=== PATIENT | female | born 1950 | race Caucasian/White ===

== ENCOUNTER 2022-07-26 06:37 | Outpatient (RCR) | payer MEDICARE, OTHER, SELFPAY | END 2022-08-24 23:59 | disposition home or self-care (01) | LOC: MM 06:37 | PROVIDERS: PCP Internal Medicine Nephrology; Visit Provider Internal Medicine | DX: Z51.81 Encounter for therapeutic drug level monitoring (principal); Z79.01 Long term (current) use of anticoagulants; I48.20 Chronic atrial fibrillation, unspecified | CPT/HCPCS: 85610; G0463 ==

== ENCOUNTER 2022-07-27 14:20 | Outpatient (REF) | payer MEDICARE, OTHER, SELFPAY ==
[2022-07-27 14:47] LABS: Potassium 2.8 mmol/L (3.5-5.1)
== END 2022-07-27 14:21 ==
LOC: LAB 14:20
PROVIDERS: PCP Internal Medicine Nephrology; Visit Provider Internal Medicine
DX: E87.5 Hyperkalemia (principal)
CPT/HCPCS: 36415; 84132

== ENCOUNTER 2022-08-03 12:45 | Outpatient (REF) | payer MEDICARE, OTHER, SELFPAY ==
[2022-08-03 13:13] LABS: Hemoglobin 9.5 g/dL (12.0-16.0)
[2022-08-03 13:26] LABS: Potassium 4.9 mmol/L (3.5-5.1)
== END 2022-08-03 12:46 ==
LOC: LAB 12:45
PROVIDERS: PCP Internal Medicine Nephrology; Visit Provider Internal Medicine Nephrology
DX: N18.9 Chronic kidney disease, unspecified (principal); D63.1 Anemia in chronic kidney disease; E87.5 Hyperkalemia
CPT/HCPCS: 36415; 84132; 85018

== ENCOUNTER 2022-08-06 12:37 | Outpatient (REF) | payer MEDICARE, OTHER, SELFPAY ==
[2022-08-06 12:53] LABS: Hemoglobin 9.4 g/dL (12.0-16.0)
== END 2022-08-06 12:38 ==
LOC: LAB 12:37
PROVIDERS: PCP Internal Medicine Nephrology; Visit Provider Internal Medicine Nephrology
DX: N18.9 Chronic kidney disease, unspecified (principal); D63.1 Anemia in chronic kidney disease
CPT/HCPCS: 36415; 85018

== ENCOUNTER 2022-08-30 09:02 | Outpatient (RCR) | payer MEDICARE, OTHER, SELFPAY | END 2022-09-24 16:59 | disposition home or self-care (01) | LOC: MM 09:02 | PROVIDERS: PCP Radiology Diagnostic Radiology; Visit Provider Radiology Diagnostic Radiology | DX: Z51.81 Encounter for therapeutic drug level monitoring (principal); Z79.01 Long term (current) use of anticoagulants; I48.20 Chronic atrial fibrillation, unspecified | CPT/HCPCS: 85610; G0463 ==

== ENCOUNTER 2022-09-13 13:24 | Outpatient (OUT) | payer MEDICARE, OTHER, SELFPAY ==
--- NOTE | 2022-09-13 13:30 | MM_ITS ---
Patient: CARLOS COSTA Exam Date: 09/13/2022 : 1950 Gender:F Ordering : DR MARIETTA KIRKLAND M.D. Admission #: [id number] Family : Order #: [id number] CLICK HERE TO VIEW EXAM RADIOLOGY REPORT PROCEDURE: MM TOMOSYNTHESIS SCREENING BI COMPARISON: MG MAMM SCREEN BROOKS W CAD, 04/24/2019. MG MAMM SCREEN 3D BROOKS CAD, 06/30/2020. INDICATIONS: Screening Calculator Name NCI Breast Cancer Risk Assessment Tool 5 Year Breast Cancer Risk 1.70% Lifetime Breast Cancer Risk 5.20% Personal Breast Cancer No Personal Ovarian Cancer No Treatments None Family Cancers None LOCATION: [facility] BREAST COMPOSITION: Scattered areas fibroglandular density. FINDINGS: DIAGNOSTIC CATEGORY 2--BENIGN FINDING. NO CHANGE FROM COMPARISON. Scattered benign-appearing nodules are present. Scattered benign-appearing calcifications are present. Scattered benign-appearing lymph nodes are present. RIGHT BREAST: No significant suspicious finding. LEFT BREAST: No significant suspicious finding. RECOMMENDATIONS: ROUTINE MAMMOGRAM AND CLINICAL EVALUATION IN 12 MONTHS. PLEASE NOTE: A NORMAL MAMMOGRAM DOES NOT EXCLUDE THE POSSIBILITY OF BREAST CANCER. A CLINICALLY SUSPICIOUS PALPABLE LUMP SHOULD BE BIOPSIED. Dictated by: Chino De La Cruz MD on 09/13/2022 at 14:47 Approved by: Chino De La Cruz MD on 09/13/2022 at 14:48
== END 2022-09-13 13:25 | disposition home or self-care (01) ==
LOC: MAMMO 13:24
PROVIDERS: PCP Internal Medicine; Visit Provider Internal Medicine
DX: Z12.31 Encounter for screening mammogram for malignant neoplasm of breast (principal)
CPT/HCPCS: 77063; 77067

== ENCOUNTER 2022-09-25 09:23 | Outpatient (RCR) | payer MEDICARE, OTHER, SELFPAY | END 2022-10-25 17:34 | disposition home or self-care (01) | LOC: MM 09:23 | PROVIDERS: PCP Internal Medicine; Visit Provider Internal Medicine | DX: Z51.81 Encounter for therapeutic drug level monitoring (principal); Z79.01 Long term (current) use of anticoagulants; I48.20 Chronic atrial fibrillation, unspecified | CPT/HCPCS: 85610; G0463 ==

== ENCOUNTER 2022-10-18 00:45 | Emergency (ER) | payer MEDICARE, OTHER, SELFPAY ==
[2022-10-18 00:49] VITALS: BP 92/50; PULSE 97; RESP 16; TEMP 36.8; O2SAT 97
--- NOTE | 2022-10-18 01:00 | ED_ITS ---
HPI - Wound/Laceration General Chief Complaint: Wound/Laceration Stated Complaint: LACERATION L ARM Time Seen by Provider: 10/18/22 01:00 History of Present Illness HPI narrative: hemodialysis patient. Presents complaining of bleeding from the fistula left upper arm. No able to control bleeding at home. No other complaint and now presents to be seen. Related Data Allergies Allergy/AdvReac Type Severity Reaction Status Date / Time atorvastatin [From Lipitor] Allergy Verified 10/18/22 00:57 Penicillins Allergy Verified 10/18/22 00:57 tuberculin,PPD,multi-puncture Allergy Verified 10/18/22 00:57 Review of Systems ROS Status of ROS 10 or more systems reviewed and unremarkable except as noted in history and below Exam Constitutional Vital Signs, click to edit/add: Last Vital Signs Temp 98.3 F 10/18/22 00:49 Pulse 97 H 10/18/22 00:49 Resp 16 10/18/22 00:49 BP 92/50 10/18/22 00:49 Pulse Ox 97 10/18/22 00:49 Common normals: no apparent distress, oriented x3, no limitations and healthy appearing HENMT Common normals: normocephalic Eye Common normals: no scleral icterus Respiratory Common normals: normal respiratory effort, no retractions and no use of accessory muscles Cardio Common normals: regular rate, regular rhythm, S1 normal heart sound and S2 normal heart sound Extremity Other: bleeding from fistula left upper arm Neuro Common normals: oriented x3, CN's II-XII intact bilaterally, moves all extrem ities and no focal motor deficits Course Vital Signs Vital signs: Vital Signs Temperature 98.3 F 10/18/22 00:49 Pulse Rate 97 H 10/18/22 00:49 Respiratory Rate 16 10/18/22 00:49 Blood Pressure 92/50 10/18/22 00:49 Pulse Oximetry 97 10/18/22 00:49 Temperature 98.3 F 10/18/22 00:49 Pulse Rate 97 H 10/18/22 00:49 Respiratory Rate 16 10/18/22 00:49 Blood Pressure 92/50 10/18/22 00:49 Pulse Oximetry 97 10/18/22 00:49 MDM - Wound/Laceration MDM Narrative Medical decision making narrative: patient presents with arterial bleed from her AV fistula left upper arm. Did have dialysis yesterday. bleeding continued in the department despite holding pressure silver nitrate used to cauterize the bleeder and then pressure dressing applied patient observed in the department and bleeding remained controlled Discharge Plan Discharge Chief Complaint: Wound/Laceration Clinical Impression: Hemorrhage of arteriovenous fistula Patient Disposition: Home, Self-Care Instructions: Acute Wounds (ED) Stand Alone Forms: Portal Instructions Referrals: MARIETTA KIRKLAND [Primary Care Provider] - 1 week
--- NOTE | 2022-10-18 01:23 | PC.NURSE ---
patient states her fistula started bleeding approx 45mins ago and she has been holding pressure and fistula continues to bleed. patient arrives with towel on arm and holding pressure. this RN immediately took over holding pressure with gauze and dr mathias called in to bedside to assess patient. verbal order from dr mathias to apply pressure dressing and continue to hold pressure. patient states she did receive dialysis earlier today and states when she got home the fistula bled for approx 15minutes but stopped with pressure applied. while this RN was completeing triage pressure dressing and manual pressure maintained. this RN observed patient to be bleeding through pressure dressing. dressing changed and manual pressure reapplied, dr mathias notified.
== END 2022-10-18 02:23 | disposition home or self-care (01) ==
PROVIDERS: Emergency Provider Internal Medicine; PCP Internal Medicine
DX: T82.838A Hemorrhage due to vascular prosthetic devices, implants and grafts, initial encounter (principal); Z99.2 Dependence on renal dialysis
CPT/HCPCS: 99282

== ENCOUNTER 2022-10-26 10:23 | Outpatient (RCR) | payer MEDICARE, OTHER, SELFPAY | END 2022-11-23 16:52 | disposition home or self-care (01) | LOC: MM 10:23 | PROVIDERS: PCP Internal Medicine; Visit Provider Internal Medicine | DX: Z51.81 Encounter for therapeutic drug level monitoring (principal); Z79.01 Long term (current) use of anticoagulants; I48.20 Chronic atrial fibrillation, unspecified | CPT/HCPCS: 85610; G0463 ==

== ENCOUNTER 2022-11-02 09:30 | Outpatient (REF) | payer MEDICARE, OTHER, SELFPAY ==
[2022-11-02 09:55] LABS: Potassium 5.5 mmol/L (3.5-5.1)
== END 2022-11-02 09:31 | disposition home or self-care (01) ==
LOC: LAB 09:30
PROVIDERS: PCP Internal Medicine; Visit Provider Internal Medicine Nephrology
DX: E87.5 Hyperkalemia (principal)
CPT/HCPCS: 36415; 84132

== ENCOUNTER 2022-11-12 01:45 | Emergency (ER) | payer MEDICARE, OTHER, SELFPAY ==
[2022-11-12 01:38] VITALS: BP 118/82; PULSE 109; RESP 16; TEMP 36.7; O2SAT 100; BMI 28.4
--- NOTE | 2022-11-12 02:15 | ED.EXTPRO1 ---
HPI - Extremity Problem General Chief complaint: Wound/Laceration Stated complaint: BLEEDING FISTULA Time Seen by Provider: 11/12/22 01:54 Mode of arrival: ambulance History of Present Illness HPI Narrative: bleeding AV fistula. States this past saturday she had a fistulogram and required manipulation to open the fistula. Tonight spontaneous bleeding from her left upper arm AV fistula. Similar to past episodes. she otherwise feels ok Related Data Allergies Allergy/AdvReac Type Severity Reaction Status Date / Time atorvastatin [From Lipitor] Allergy Verified 10/18/22 00:57 Penicillins Allergy Verified 10/18/22 00:57 tuberculin,PPD,multi-puncture Allergy Verified 10/18/22 00:57 Review of Systems ROS Status of ROS 10 or more systems reviewed and unremarkable except as noted in history and below PFS PFS Social History Smoking status: Former smoker Exam Constitutional Vital Signs, click to edit/add: Last Vital Signs Temp 98.1 F 11/12/22 01:38 Pulse 109 H 11/12/22 01:38 Resp 16 11/12/22 01:38 BP 118/82 11/12/22 01:38 Pulse Ox 100 11/12/22 01:38 O2 Del Method Room Air 11/12/22 01:38 Common normals: no apparent distress, oriented x3, healthy appearing, alert and well nourished Eye Common normals: EOMs intact bilaterally and conjunctivae normal Respiratory Common normals: normal respiratory effort and no use of accessory muscles Cardio Common normals: regular rate and regular rhythm GI Common normals: Normal to inspection, nondistended, normoactive bowel sounds present, soft to palpation and non-tender Extremity Other: arterial bleeder left upper fisula Neuro Common normals: oriented x3, CN's II-XII intact bilaterally, moves all extremities, no focal motor deficits and no sensory deficits noted Psych Appearance: grossly normal Course Vital Signs Vital signs: Vital Signs Temperature 98.1 F 11/12/22 01:38 Pulse Rate 109 H 11/12/22 01:38 Respiratory Rate 16 11/12/22 01:38 Blood Pressure 118/82 11/12/22 01:38 Pulse Oximetry 100 11/12/22 01:38 Oxygen Delivery Method Room Air 11/12/22 01:38 Temperature 98.1 F 11/12/22 01:38 Pulse Rate 109 H 11/12/22 01:38 Respiratory Rate 16 11/12/22 01:38 Blood Pressure 118/82 11/12/22 01:38 Pulse Oximetry 100 11/12/22 01:38 Oxygen Delivery Method Room Air 11/12/22 01:38 MDM - Extremity (Nontraumatic) MDM Narrative Medical decision making narrative: presents with acute bleed from left upper arm AV fistula. arterial bleed. able to control bleeder using silver nitrate cautery. pressure dressing then applied and patient observed in the department patient rechecked one hour later and no active bleeding Discharge Plan Discharge Chief Complaint: Wound/Laceration Clinical Impression: Hemorrhage of arteriovenous fistula Instructions: Arteriovenous Graft Creation for Hemodialysis (DC) Additional Instructions: follow up tomorrow with nephrology for re eval of fistula Referrals: MARIETTA KIRKLAND [Primary Care Provider] - 1 week
== END 2022-11-12 03:52 | disposition home or self-care (01) ==
PROVIDERS: Emergency Provider Internal Medicine; PCP Internal Medicine
DX: T82.838A Hemorrhage due to vascular prosthetic devices, implants and grafts, initial encounter (principal); Z87.891 Personal history of nicotine dependence
CPT/HCPCS: 99282

== ENCOUNTER 2022-11-26 02:45 | Outpatient (RCR) | payer MEDICARE, OTHER, SELFPAY | END 2022-12-25 17:41 | disposition home or self-care (01) | LOC: MM 02:45 | PROVIDERS: PCP Internal Medicine; Visit Provider Internal Medicine | DX: Z51.81 Encounter for therapeutic drug level monitoring (principal); Z79.01 Long term (current) use of anticoagulants; I48.20 Chronic atrial fibrillation, unspecified | CPT/HCPCS: 85610; G0463 ==

== ENCOUNTER 2022-12-26 00:40 | Outpatient (RCR) | payer MEDICARE, OTHER, SELFPAY | END 2023-01-24 16:49 | disposition home or self-care (01) | LOC: MM 00:40 | PROVIDERS: PCP Internal Medicine; Visit Provider Internal Medicine | DX: Z51.81 Encounter for therapeutic drug level monitoring (principal); Z79.01 Long term (current) use of anticoagulants; I48.20 Chronic atrial fibrillation, unspecified | CPT/HCPCS: 85610; G0463 ==

== ENCOUNTER 2023-01-25 09:27 | Outpatient (RCR) | payer MEDICARE, OTHER, SELFPAY | END 2023-02-24 23:59 | disposition home or self-care (01) | LOC: MM 09:27 | PROVIDERS: PCP Internal Medicine; Visit Provider Internal Medicine | DX: Z51.81 Encounter for therapeutic drug level monitoring (principal); Z79.01 Long term (current) use of anticoagulants; I48.20 Chronic atrial fibrillation, unspecified | CPT/HCPCS: 85610; G0463 ==

== ENCOUNTER 2023-03-08 11:34 | Outpatient (RCR) | payer MEDICARE, OTHER, SELFPAY | END 2023-03-27 17:14 | disposition home or self-care (01) | LOC: MM 11:34 | PROVIDERS: PCP Internal Medicine; Visit Provider Internal Medicine | DX: Z51.81 Encounter for therapeutic drug level monitoring (principal); Z79.01 Long term (current) use of anticoagulants; I48.20 Chronic atrial fibrillation, unspecified | CPT/HCPCS: 85610; G0463 ==

== ENCOUNTER 2023-03-28 01:01 | Outpatient (RCR) | payer MEDICARE, OTHER, SELFPAY | END 2023-04-25 17:25 | disposition home or self-care (01) | LOC: MM 01:01 | PROVIDERS: PCP Internal Medicine; Visit Provider Internal Medicine | DX: Z51.81 Encounter for therapeutic drug level monitoring (principal); Z79.01 Long term (current) use of anticoagulants; I48.20 Chronic atrial fibrillation, unspecified ==

== ENCOUNTER 2023-03-29 08:30 | Emergency (ER) | payer MEDICARE, OTHER, SELFPAY ==
[2023-03-29 08:39] VITALS: BP 112/83; PULSE 127; RESP 20; TEMP 36.8; O2SAT 100; BMI 28.2
--- NOTE | 2023-03-29 08:47 | ED.GENADUL1 ---
HPI - General Adult General Chief complaint: Extremity Problem, Nontraumatic Stated complaint: UPPER EXTREMITY PAIN L ARM Time Seen by Provider: 03/29/23 08:47 Source: patient Mode of arrival: ambulance Limitations: no limitations History of Present Illness HPI narrative: This patient is here for bleeding from her AV fistula that she uses for dialysis. She had dialysis 2 days ago and has been bleeding off and on since that time. She has had this happen 3 times previously, she did see her vascular surgeon and they leave they are going to have to do another fistulogram or repair/replacement. That physician is in [place]. She is also taking Coumadin. She is not on any antiplatelet medication. She said it started bleeding again this morning and she put a towel on it and wrapped it up tightly. Related Data Home Medications Medication Instructions Recorded Confirmed bumetanide 1 mg tablet 1 mg PO Q24H 03/29/23 03/29/23 carvedilol 3.125 mg tablet 3.125 mg PO Q12H 03/29/23 03/29/23 docusate sodium 100 mg capsule 100 mg PO Q12H 03/29/23 03/29/23 midodrine 10 mg tablet 10 mg PO Q24H 03/29/23 03/29/23 pantoprazole 20 mg tablet,delayed 20 mg PO Q24H 03/29/23 03/29/23 release rosuvastatin 10 mg tablet 10 mg PO Q24H 03/29/23 03/29/23 sevelamer carbonate 800 mg tablet 800 mg PO Q8H 03/29/23 03/29/23 warfarin 2 mg tablet 2 mg PO DAILY 03/29/23 03/29/23 Allergies Allergy/AdvReac Type Severity Reaction Status Date / Time atorvastatin [From Lipitor] Allergy Verified 10/18/22 00:57 Penicillins Allergy Verified 10/18/22 00:57 tuberculin,PPD,multi-puncture Allergy Verified 10/18/22 00:57 PFS PFS Social History Smoking status: Former smoker Exam Narrative Exam Narrative: Here in the emergency room the dressing was taken down. There is a very slow oozing of blood from a puncture wound just distal to her dressing that is utilized for access for dialysis. We did use the cautery stick and tried to cauterize this area that has been successful in the past. With the third cautery stick, it finally did stop bleeding. At that time a Gelfoam dressing, 4 x 4's and Kerlix were applied. INR testing came back at 2.13. At approximately 1015 after the dressing had been on for nearly 1 hour the dressing was taken down and there is no further bleeding. Constitutional Vital Signs, click to edit/add: Last Vital Signs Temp 98.2 F 03/29/23 08:39 Pulse 127 H 03/29/23 08:39 Resp 20 03/29/23 08:39 BP 112/83 03/29/23 08:39 Pulse Ox 100 03/29/23 08:39 O2 Del Method Room Air 03/29/23 08:39 Course Vital Signs Vital signs: Vital Signs Temperature 98.2 F 03/29/23 08:39 Pulse Rate 127 H 03/29/23 08:39 Respiratory Rate 20 03/29/23 08:39 Blood Pressure 112/83 03/29/23 08:39 Pulse Oximetry 100 03/29/23 08:39 Oxygen Delivery Method Room Air 03/29/23 08:39 Temperature 98.2 F 03/29/23 08:39 Pulse Rate 127 H 03/29/23 08:39 Respiratory Rate 20 03/29/23 08:39 Blood Pressure 112/83 03/29/23 08:39 Pulse Oximetry 100 03/29/23 08:39 Oxygen Delivery Method Room Air 03/29/23 08:39 Medical Decision Making MDM Narrative Medical decision making narrative: This is now the fourth episode where she has had breakthrough bleeding that was not controlled with light pressure. It is controlled at this time and she should probably try to get dialysis. That may or may not invoke more bleeding. If she continues to have problems I think it is incumbent upon her to find her way to [facility] and have the vascular surgeon considered definitive care. Lab Data Labs: Lab Results 03/29/23 Range/Units 09:00 WBC 8.8 (4.0-11.0) 10^3/uL RBC 3.32 L (4.20-5.40) 10^6/uL Hgb 10.5 L (12.0-16.0) g/dL Hct 33.8 L (36.0-48.0) % MCV 101.8 H (81.0-99.0) fL MCH 31.6 (26.7-34.0) pg MCHC 31.1 (29.9-35.2) g/dL RDW 15.1 H (11.0-15.0) % Plt Count 200 (150-450) 10^3/uL MPV 9.3 L (9.5-13.5) fL Neut % (Auto) 67.5 (43.0-75.0) % Lymph % (Auto) 18.6 L (20.5-60.0) % Pepin % (Auto) 9.9 (1.7-12.0) % Eos % (Auto) 2.3 (0.9-7.0) % Baso % (Auto) 0.9 (0.2-2.0) % Neut # (Auto) 5.9 (1.4-6.5) 10^3/uL Lymph # (Auto) 1.6 (1.2-3.8) 10^3/uL Pepin # (Auto) 0.9 H (0.3-0.8) 10^3/uL Eos # (Auto) 0.2 (0.0-0.7) 10^3/uL Baso # (Auto) 0.1 (0.0-0.1) 10^3/uL Abs Immat Gran (auto) 0.07 H (0.00-0.03) 10^3/uL Imm/Tot Granulo (auto) 0.8 H (0.0-0.5) % PT 21.6 H (9.0-11.6) sec INR 2.13 Sodium 135 L (136-145) mmol/L Potassium 4.4 (3.5-5.1) mmol/L Chloride 96 L (98-107) mmol/L Carbon Dioxide 30.1 (21.0-32.0) mmol/L Anion Gap 13.3 BUN 33.0 H (7.0-18.0) mg/dL Creatinine 8.71 H* (0.55-1.02) mg/dL Est GFR ( Amer) 6 L (>=60) Est GFR (Non-Af Amer) 5 L (>=60) BUN/Creatinine Ratio 3.8 Glucose 109 H (74-106) mg/dL Calcium 10.0 (8.5-10.1) mg/dL Total Bilirubin 0.3 (0.2-1.0) mg/dL AST 14 L (15-37) U/L ALT 12 L (14-59) U/L Alkaline Phosphatase 91 (46-116) U/L Total Protein 6.6 (6.4-8.2) g/dL Albumin 2.7 L (3.4-5.0) g/dL Globulin 3.9 g/dL Albumin/Globulin Ratio 0.7 Discharge Plan Discharge Chief Complaint: Extremity Problem, Nontraumatic Clinical Impression: Hemorrhage of arteriovenous fistula Patient Disposition: Home, Self-Care Time of Disposition Decision: 10:31 Prescriptions / Home Meds: No Action bumetanide 1 mg tablet 1 mg PO Q24H carvedilol 3.125 mg tablet 3.125 mg PO Q12H docusate sodium 100 mg capsule 100 mg PO Q12H midodrine 10 mg tablet 10 mg PO Q24H warfarin 2 mg tablet 2 mg PO DAILY sevelamer carbonate 800 mg tablet 800 mg PO Q8H rosuvastatin 10 mg tablet 10 mg PO Q24H pantoprazole 20 mg tablet,delayed release (DR/EC) 20 mg PO Q24H Additional Instructions: Consider follow-up with your vascular surgeon at [facility] if bleeding returns Stand Alone Forms: Portal Instructions Referrals: MARIETTA KIRKLAND [Primary Care Provider] - 1 week
--- OUTSIDE RECORDS SUMMARY | 2023-03-29 09:01 | XMS_ITS | CCD ---
Author Name Unknown Address [address] [place] [address] Organization [facility] Care Team Providers Care Purchasing Analyst Name Role Phone Unavailable Unavailable Dillon Wilson Unavailable Master Duggan Unavailable [phone] Corinne Corrigan Unavailable EDUARDO Byrd Primary Care Provider MD Dillon Wilson Attending Provider PAMELA Corrigan Attending Provider EDUARDO Byrd Primary Care Provider MD Dillon Wilson Attending Provider [phone] MD Dillon Wilson Admit Provider EDUARDO Byrd Primary Care Provider MD Dillon Wilson Attending Provider [phone] FAWWAD, BRADEN H Attending Unavailable BHAVANAWWAD, BRADEN H Admitting Unavailable DR CURTIS BYRD Primary Care Unavailable FAWWAD, BRADEN H Attending Unavailable FAWWAD, BRADEN H Admitting Unavailable DR CURTIS BYRD Primary Care Unavailable FAWWAD, BRADEN H Attending Unavailable FAWWAD, BRADEN H Admitting Unavailable DR CURTIS BYRD Primary Care Unavailable FAWWAD, BRADEN H Attending Unavailable FAWWAD, BRADEN H Admitting Unavailable DR CURTIS BYRD Primary Care Unavailable FAWWAD, BRADEN H Attending Unavailable FAWWAD, BRADEN H Admitting Unavailable DR CURTIS BYRD Primary Care Unavailable FAWWAD, BRADEN H Attending Unavailable FAWWAD, BRADEN H Admitting Unavailable CARSON, DR MCMANUS Primary Care Unavailable BAKHOUS, AZIZ Consulting Unavailable BAKHOUS, AZIZ Admitting Unavailable BAKHOUS, AZIZ Attending Unavailable BYRD, DR MCMANUS Primary Care Unavailable BAKHOUS, AZIZ Consulting Unavailable BAKHOUS, AZIZ Attending Unavailable BYRD, DR MCMANSU Primary Care Unavailable BAKHOUS, AZIZ Admitting Unavailable ELASHI, DR PETERS Consulting Unavailable ELASHI, DR PETERS Attending Unavailable BYRD, DR MCMANUS Primary Care Unavailable ELASHI, DR PETERS Admitting Unavailable YAMILET, YOSELYN Consulting Unavailable YAMILET, YOSELYN Attending Unavailable BYRD, DR MCMANUS Primary Care Unavailable YAMILET, YOSELYN Admitting Unavailable HAY ., DR INMAN Consulting Unavailable HAY ., DR INMAN Attending Unavailable BYRD, DR MCMANUS Primary Care Unavailable HAY ., DR INMAN Admitting Unavailable FAWWAD, BRADEN H Attending Unavailable FAWWAD, BRADEN H Admitting Unavailable BYRD, DR MCMANUS Primary Care Unavailable FAWWAD, BRADEN H Attending Unavailable BYRD, DR MCMANUS Primary Care Unavailable FAWWAD, BRADEN H Admitting Unavailable FAWWAD, BRADEN H Attending Unavailable FAWWAD, BRADEN H Admitting Unavailable BYRD, DR MCMANUS Primary Care Unavailable FAWWAD, BRADEN H Attending Unavailable FAWWAD, BRADEN H Admitting Unavailable BYRD, DR MCMANUS Primary Care Unavailable FAWWAD, BRADEN H Attending Unavailable FAWWAD, BRADEN H Admitting Unavailable CARSON, DR MCMANUS Primary Care Unavailable Ozzie Quintero Attending Unavailable Ozzie Quintero Referring Unavailable Carson II, Dr. Curtis Wright Primary Care Keli vailable Ozzie Quintero Attending Unavailable Ozzie Quintero Referring Unavailable Carson II, Dr. Curtis Wright Primary Care Keli vailable Curtis Byrd Unavailable EDUARDO Byrd Primary Care Provider MD Dillon Wilson Attending Provider PAMELA Corrigan Attending Provider CURTIS BYRD Attending Unavailable EDUARDO Byrd Primary Care Provider [phone] MD Dillon Wilson Attending Provider Dillon Wilson Admitting Unavailabl e Curtis Byrd Primary Care Unavailable Steve, Dillon Resendez Attending Unavailabl e Langenberg, Dillon T Admitting Unavailabl e Byrd, Curtis Primary Care Unavailable Langenberg, Dillon T Attending Unavailabl e Langenberg, Dillon T Admitting Unavailabl e Byrd, Curtis Primary Care Unavailable Langami, Dillon Resendez Attending Unavailabl e Corinne Corrigan R Admitting Unavailable Corinne Corrigan R Attending Unavailable Curtis Byrd Primary Care Unavailable Carson Curtis Primary Care Unavailable Langenberg, Dillon T Admitting Unavailabl e Langenberg, Dillon T Attending Unavailabl e Langenberg, Dillon T Admitting Unavailabl e Carson, Curtis Primary Care Unavailable Steve, Dillon T Attending Unavailabl e Byrd, Curtis [facility] Unavailable Langenberg, Dillon T Attending Unavailabl e Langenberg, Dillon T Admitting Unavailabl e Allergies Allergy Classification Reported Allergen(s) Allergy Type Date of Onset Reaction(s) Facility (20 sources) Penicillins; Translations: [Penicillins] Allergy to drug (finding) 03-29-19 21 Hives, Swelling of Lip/Tongue/Th roat [facility] (20 sources) atorvastatin; Translations: [Lipitor] Drug Allergy Myalgia, bodyaches [facility] Cou[facility] Other (10 sources) Purified Protein Derivative of Tuberculin; Translations: [Tuberculin Tests] Drug Allergy [facility] 250 DO Work Phone: (10 sources) Penicillin Drug Allergy anaphylaxis [facility] Coub Other (6 sources) Penicillin V Drug Allergy anaphylaxis [facility] Coub Other (9 sources) atorvastatin Drug Allergy 03-30-19 21 Cramping of the Muscles [facility] (9 sources) tuberculin test Propensity to adverse reactions 06-06-19 22 Redness of Skin [facility] (1 source) Dextroamphetamine Drug Allergy [facility] (1 source) Penicillin Drug Allergy [facility] Medications Current Medications Medication Drug Class(es) Dates Sig (Normalized) Sig (Original) 8 hr acetaminophen 650 mg extended release oral tablet (20 sources) Start: 03-06-2022 take 650 mg by mouth every twelve hours Acetaminophen Active 650 MG PO Q12H March 06, 2022 12:00am take 2 tablets by mouth every si x hours Tylenol 325 MG Oral Tablet TAKE 2 TABLET Every 6 hours PRN Quantity: 0 Refills: 0 Ordered: 30-May-2021 DO Active Tylenol Active Tylenol Not-Taki ng ascorbic acid / D-biotin / folic acid / niacinamide / pantothenate / pyridoxine / riboflavin / thiamine / vitamin B12 (20 sources) Vitamin B12, Vitamin C take 1 tablet by mouth once daily Audrey-Rafael Oral Tablet Take 1 tablet daily Quantity: 0 Refills: 0 Ordered: 30-May-2021 DO Active Audrey-Rafael Active aspirin 81 mg delayed release oral tablet (20 sources) Platelet Aggregation Inhibitor, Nonsteroidal Anti-inflammatory Drug Start: 09-16-2019 End: 03-22-2020 take 81 mg by mouth once daily Aspirin Active 81 MG PO Daily March 22, 2020 4:43pm B Complex-Vitamin C-Folic Acid (Renavit Multivitamin) 0.8 mg Tablet (6 sources) Start: 11-08-2022 take 1 tablet by mouth once daily B Complex-Vitamin C-Folic Acid (Renavit Multivitamin) 0.8 mg Tablet Active 1 TAB PO Daily November 07, 2022 11:00pm Start: 11-08-2022 take 1 tablet by marshal th once daily B Complex-Vitamin C-Folic Acid (Renavit Multivitamin) 0.8 mg Tablet Active 1 TAB PO Daily November 08, 2022 12:00am Start: 06-05-2021 take 1 tablet by marshal th once daily B Complex-Vitamin C-Folic Acid (Renavit Multivitamin) 0.8 mg Tablet Active 1 TAB PO Daily June 04, 2021 11:00pm Start: 06-05-2021 take 1 tablet by marshal th once daily B Complex-Vitamin C-Folic Acid (Renavit Multivitamin) 0.8 mg Tablet Active 1 TAB PO Daily June 05, 2021 12:00am biotin 5 mg disintegrating oral tablet (20 sources) Start: 01-26-2021 take 25870 ug by mouth once daily Biotin Active 50546 MCG PO Daily January 26, 2021 12:00am Start: 03-17-2020 End: 12-02-2021 take 5000 ug by mouth once daily in the morning Biotin Discontinued 5000 MCG PO Every morning March 17, 2020 12:00am January 26, 2021 1:09pm Biotin 5000 MCG as directed Once a day Active Biotin 5000 MCG as directed Once a day Active take 2 tablets by mo [facility] once daily Biotin 5000 MCG Oral Tablet TAKE 2 TABLET Daily Quantity: 0 Refills: 0 Ordered: 05-Jan-2021 DO Active Biotin Active carvedilol 3.125 mg oral tablet (11 sources) alpha-Adrenergic Arsen, beta-Adrenergic Arsen Start: 11-08-2022 take 1 dose by mouth twice daily in the morning Carvedilol Active 3.125 MG PO Twice daily November 07, 2022 11:00pm Hold AM dose HD days Start: 03-20-2022 take 1 tablet by [facility] twice daily Carvedilol 3.125 MG Oral Tablet TAKE 1 TABLET BY MOUTH TWICE DAILY Quantity: 180 Refills: 3 Ordered: 20-Mar-2022 Ozzie Quintero MD Start : 20-Mar-2022 Active take 1 tablet by [facility] once daily at mealtime Carvedilol 3.125 MG 1 tablet with food Orally every day ( M, W, F does not take in mornings) Active cinacalcet 30 mg oral tablet (20 sources) Calcium-sensing Receptor Agonist Start: 03-06-2022 take 30 mg by mouth three times weekly Cinacalcet Active 30 MG PO 3 Times a week March 06, 2022 12:00am take 5 tablets by [facility] three times weekly Cinacalcet HCl - 30 MG Oral Tablet 3 vandana es weekly dialysis days Quantity: 0 Refills: 0 Ordered: 30-May-2021 DO Active 0.4 ml darbepoetin herbie 0.1 mg/ml prefilled syringe (19 sources) Erythropoiesis-stimulating Agent Start: 01-24-2021 Darbepoetin Herbie In Polysorbat (Aranesp (In Polysorbate)) 40 mcg/0.4 mL Syringe Active 25 MCG SUBCUT every week January 24, 2021 12:00am Start: 01-24-2021 Darbepoetin Al fa In Polysorbat (Aranesp (In Polysorbate)) 40 mcg/0.4 mL Syringe Active 40 MCG SUBCUT every week January 24, 2021 1:00am Aranesp 40 MCG/0 .4ML SOLN USE DIRECTED. Quantity: 0 Refills: 0 Ordered: 05-Jan-2021 DO Active diclofenac sodium 20 mg/ml topical solution (20 sources) Nonsteroidal Anti-inflammatory Drug Start: 03-06-2022 Diclofenac Sodium Active 1 PACKET TOPICAL Q12H March 06, 2022 12:00am apply to single affected knee Start: 11-25-2019 End: 01-24-2021 apply 2 g topically every four hours Diclofenac Sodium Discontinued 2 GM TOPICAL Q4H 0 November 24, 2019 11:00pm January 24, 2021 4:00pm Diclofenac Sodiu m 1 % as directed Transdermal Active 2 ml heparin sodium, porcine 1000 unt/ml injection (9 sources) Unfractionated Heparin, Anti-coagulant Heparin Sodium (Porc ine) 1000 UNIT/ML as directed Injection Active Heparin Sodium ( Porcine) PF SOLN at dialysis Quantity: 0 Refills: 0 Ordered: 05-Jan-2021 DO Active lidocaine 0.05 mg/mg medicated patch (17 sources) Antiarrhythmic, Amide Local Anesthetic Start: 11-08-2022 apply 1 dose topically once daily Lidocaine Active 1 PATCH TOPICAL Daily November 07, 2022 11:00pm leave on most painful area for up to 12 hrs Lidocaine Active Lidocaine Not-Ta genesis midodrine hydrochloride 5 mg oral tablet (8 sources) alpha-Adrenergic Agonist Start: 03-06-2022 take 1 dose by mouth once daily at bedtime Midodrine Active 10 MG PO Use as Directed March 06, 2022 12:00am do not give last dose of day after 6PM or within 4 hrs of bedtime at dialysis as needed. Start: 03-06-2022 take 1 dose by mouth once daily at bedtime Midodrine Active 5 MG PO Daily March 06, 2022 1:00am do not give last dose of day after 6PM or within 4 hrs of bedtime at dialysis as needed. pantoprazole 20 mg delayed release oral tablet (20 sources) Proton Pump Inhibitor Start: 09-16-2019 End: 03-22-2020 take 1 tablet by mouth once daily in the morning Pantoprazole (Protonix) 20 mg tablet,delayed release (DR/EC) Active 20 MG PO Every morning March 22, 2020 4:43pm 1 ml paricalcitol 0.005 mg/ml injection (20 sources) Vitamin D3 Analog Start: 03-06-2022 take 5 ug intravenously every week Paricalcitol (Zemplar) 5 mcg/mL Solution Active 6 MCG IV every week March 06, 2022 12:00am Start: 03-06-2022 take 5 ug intravenou sly every other day Paricalcitol (Zemplar) 5 mcg/mL Solution Active 10 MCG IV Q2D March 06, 2022 1:00am Start: 01-26-2021 End: 09-21-2021 take 5 ug intravenously three times weekly Paricalcitol (Zemplar) 5 mcg/mL Solution Discontinued 4 MCG IV 3 Times a week January 26, 2021 12:00am September 21, 2021 11:51am Start: 03-17-2020 End: 01-24-2021 Paricalcitol (Zemplar) 2 mcg /mL Solution Discontinued 10 MCG IV Q3D March 17, 2020 12:00am January 24, 2021 4:03pm Zemplar 5 MCG/ML as directed Intravenous Active take 7 ug intravenou sly three times weekly Zemplar 2 MCG/ML Intravenous Solution 7 mcg 3 times weekly on dialysis days Quantity: 0 Refills: 0 Ordered: 30-May-2021 DO Active polyethylene glycol 3350 71036 mg powder for oral solution (20 sources) Osmotic Laxative Start: 03-06-2022 Polyethylene Glycol 3350 (Miralax) 17 gram Powder In Packet Active 17 GM PO Daily March 06, 2022 12:00am Start: 06-23-2020 End: 01-24-2021 Polyethylene Glycol 3350 (Mi ralax) 17 gram Powder In Packet Discontinued 17 GM PO Daily June 22, 2020 11:00pm January 24, 2021 4:04pm Miralax Active Miralax Not-Taki ng rosuvastatin calcium 10 mg oral tablet (20 sources) HMG-CoA Reductase Inhibitor Start: 05-31-2020 take 10 mg by mouth once daily Rosuvastatin Active 10 MG PO Daily June 22, 2020 11:00pm Rosuvastatin Prashanth cium Active warfarin sodium 3 mg oral tablet (20 sources) Vitamin K Antagonist Start: 11-08-2022 take 3 mg by mouth every week Warfarin Active 3 MG PO every week November 07, 2022 11:00pm On fridays Start: 07-06-2021 take 2 mg by mouth s ix times weekly Warfarin Active 2 MG PO 6 TIMES PER WEEK July 05, 2021 11:00pm M,Tu,We,Th,Sa,Starks Start: 06-20-2021 take 2 mg by mouth once daily Warfarin Active 2 MG PO Daily July 06, 2021 12:00am Warfarin Sodium 2 MG Oral Tablet TAKE DIRECTED BY [facility] Quantity: 135 Refills: 0 Ordered: 08-Mar-2022 DO Active Completed/Discontinued Medications Medication Drug Class(es) Dates Sig (Normalized) Sig (Original) acetaminophen 325 mg / oxyCODONE hydrochloride 5 mg oral tablet (9 sources) Opioid Agonist Start: 09-05-2019 End: 11-17-2019 take 1 tablet by mouth every four to six hours Oxycodone-Acetamino phen Discontinued 1 TAB PO EVERY 4-6 HOURS September 04, 2019 11:00pm November 17, 2019 2:46pm Amino Acids-Protein Hydrolys (Pro-Stat Sugar Free) 15-100 gram-kcal/30 mL liquid (9 sources) Start: 06-23-2020 End: 01-24-2021 Amino Acids-Protein Hydrolys (Pro-Stat Sugar Free) 15-100 gram-kcal/30 mL liquid Discontinued 1 EACH PO Twice daily June 22, 2020 11:00pm January 24, 2021 3:57pm Start: 06-23-2020 End: 01-24-2021 Amino Acids-Protein Hydrolys (Pro-Stat Sugar Free) 15-100 gram-kcal/30 mL liquid Discontinued 1 EACH PO Twice daily June 23, 2020 12:00am January 24, 2021 4:57pm amiodarone hydrochloride 200 mg oral tablet (20 sources) Antiarrhythmic Start: 01-26-2021 End: 06-05-2021 take 200 mg by mouth twice daily Amiodarone Discontinued 200 MG PO Twice daily January 26, 2021 12:00am June 05, 2021 5:38am Start: 03-17-2020 End: 01-24-2021 take 200 mg by mouth twice daily Amiodarone Discontinued 200 MG PO Twice daily March 17, 2020 12:00am January 24, 2021 4:04pm Start: 08-20-2019 End: 11-25-2019 take 1 tablet by mouth twice daily Amiodarone (Pacerone) 200 mg Tablet Discontinued 200 MG PO Twice daily August 19, 2019 11:00pm November 25, 2019 10:53am take 0.5 tablet by m out once daily Amiodarone HCl 200 MG 1/2 tablet Orally Once a day for 30 Active amLODIPine 10 mg oral tablet (9 sources) Dihydropyridine Calcium Channel Arsen Start: 01-07-2019 End: 08-20-2019 take 10 mg by mouth once daily at bedtime Amlodipine Discontinued 10 MG PO Daily at bedtime January 07, 2019 12:00am August 20, 2019 3:06pm apixaban 2.5 mg oral tablet (20 sources) Factor Xa Inhibitor Start: 01-05-2021 End: 07-06-2021 take 1 tablet by mouth twice daily Apixaban (Eliquis) 2.5 mg Tablet Discontinued 2.5 MG PO Twice daily January 24, 2021 12:00am July 06, 2021 11:16am Start: 08-20-2019 End: 11-17-2019 take 1 tablet by mouth twice daily Apixaban (Eliquis) 2.5 mg Tablet Discontinued 2.5 MG PO Twice daily August 19, 2019 11:00pm November 17, 2019 3:00pm atorvastatin 40 mg oral tablet (9 sources) HMG-CoA Reductase Inhibitor Start: 04-01-2020 End: 06-23-2020 take 40 mg by mouth once daily in the evening Atorvastatin Discontinued 40 MG PO Every evening 90 180 April 01, 2020 12:00am June 23, 2020 11:41am B Complex-Vitamin C-Folic Acid (7 sources) Start: 06-05-2021 End: 11-08-2022 take 1 tablet by mouth once daily B Complex-Vitamin C-Folic Acid Discontinued 1 TAB PO Daily June 04, 2021 11:00pm November 08, 2022 1:56pm Start: 06-05-2021 End: 11-08-2022 take 1 tablet by mouth once daily B Complex-Vitamin C-Folic Acid Discontinued 1 TAB PO Daily June 05, 2021 12:00am November 08, 2022 2:56pm Start: 06-05-2021 take 1 tablet by marshal once daily B Complex-Vitamin C-Folic Acid Active 1 TAB PO Daily June 05, 2021 12:00am Start: 06-05-2021 take 1 tablet by marshal th once daily B Complex-Vitamin C-Folic Acid Active 1 TAB PO Daily June 04, 2021 11:00pm bumetanide 1 mg oral tablet (20 sources) Loop Diuretic Start: 02-04-2020 take 1 tablet by mouth once daily Bumetanide 1 MG Oral Tablet Take 1 tablet daily Quantity: 90 Refills: 3 Ordered: 08-Mar-2022 Ozzie Quintero MD Start : 04-Feb-2020 Active Start: 11-17-2019 End: 11-17-2019 take 1 mg by mouth twice daily Bumetanide Discontinued 1 MG PO Twice daily November 17, 2019 1:03pm November 17, 2019 2:44pm Twice daily at 0800 and 1600 Start: 11-17-2019 take 1 tablet by marshal th twice daily at bedtime Bumetanide Active 1 MG PO Daily at bedtime November 16, 2019 11:00pm TAKE 1 TABLET BY MOUTH TWICE DAILY Start: 08-28-2019 End: 11-17-2019 take 2 mg by mouth twice daily Bumetanide Discontinued 2 MG PO Twice daily 60 August 27, 2019 11:00pm November 17, 2019 1:03pm Twice daily at 0800 and 1600 calcitriol 0.77404 mg oral capsule (9 sources) Vitamin D3 Analog Start: 01-07-2019 End: 10-06-2019 take 0.25 ug by mouth once daily in the morning Calcitriol Discontinued 0.25 MCG PO Every morning January 07, 2019 12:00am October 06, 2019 11:32am calcium acetate 667 mg oral tablet (9 sources) Start: 03-17-2020 End: 03-17-2020 take 1334 mg by mouth three times daily Calcium Acetate Discontinued 1334 MG PO Three times daily March 17, 2020 12:00am March 17, 2020 12:16pm docusate sodium 100 mg oral capsule (20 sources) Start: 08-28-2019 End: 01-26-2021 take 1 capsule by mouth twice daily Docusate Sodium (Dok) 100 mg capsule Discontinued 100 MG PO Twice daily November 17, 2019 2:46pm January 26, 2021 1:10pm doxycycline hyclate 100 mg oral tablet (9 sources) Tetracycline-clas s Drug Start: 09-16-2019 End: 10-12-2019 take 100 mg by mouth twice daily Doxycycline Hyclate Discontinued 100 MG PO Twice daily 10 5 September 15, 2019 11:00pm October 12, 2019 2:37pm famotidine 40 mg oral tablet (9 sources) Histamine-2 Receptor Antagonist Start: 06-23-2020 End: 11-29-2020 take 40 mg by mouth once daily at bedtime Famotidine Discontinued 40 MG PO Daily at bedtime June 22, 2020 11:00pm November 29, 2020 12:11pm ferrous sulfate 325 mg oral tablet (9 sources) Start: 08-20-2019 End: 10-08-2019 take 325 mg by mouth once daily Ferrous Sulfate Discontinued 325 MG PO Daily August 19, 2019 11:00pm October 08, 2019 5:11am furosemide 40 mg oral tablet (9 sources) Loop Diuretic Start: 01-07-2019 End: 08-28-2019 take 40 mg by mouth twice daily Furosemide Discontinued 40 MG PO Twice daily January 07, 2019 12:00am August 28, 2019 8:18am hydrALAZINE hydrochloride 25 mg oral tablet (20 sources) Arteriolar Vasodilator Start: 11-25-2019 End: 03-17-2020 take 25 mg by mouth once at mealtime Hydralazine Discontinued 25 MG PO 3x/Day with meals 0 November 24, 2019 11:00pm March 17, 2020 10:43am Start: 11-17-2019 End: 11-25-2019 take 1 tablet by mouth three times daily at mealtime Hydralazine Discontinued 100 MG PO THREE TIMES DAILY WITH MEALS November 16, 2019 11:00pm November 25, 2019 10:53am TAKE 1 TABLET BY MOUTH WITH FOOD THREE TIMES DAILY Start: 10-12-2019 End: 11-17-2019 take 100 mg by mouth twice daily Hydralazine Discontin ued 100 MG PO Twice daily October 12, 2019 2:35pm November 17, 2019 2:44pm Start: 09-16-2019 End: 10-12-2019 take 100 mg by mouth three times daily Hydralazine Discontinued 100 MG PO Three times daily 90 September 15, 2019 11:00pm October 12, 2019 2:35pm Start: 01-07-2019 End: 09-16-2019 take 50 mg by mouth three times daily Hydralazine Discontinued 50 MG PO Three times daily January 07, 2019 12:00am September 16, 2019 8:02am Iron (5 sources) Iron Not-Taking Iron Active levoFLOXacin 500 mg oral tablet (9 sources) Quinolone Antimicrobial Start: 08-28-2019 End: 09-05-2019 Levofloxacin Discontinued 500 MG PO Q48H 2 3 August 27, 2019 11:00pm September 05, 2019 10:31am minoxidil 2.5 mg oral tablet (20 sources) Arteriolar Vasodilator Start: 11-25-2019 End: 03-17-2020 take 5 mg by mouth once daily Minoxidil Discontinued 5 MG PO Daily 0 November 24, 2019 11:00pm March 17, 2020 12:16pm Start: 11-17-2019 End: 11-25-2019 take 1 tablet by mouth once daily Minoxidil Discontinued 10 MG PO Daily November 16, 2019 11:00pm November 25, 2019 10:53am TAKE 1 TABLET BY MOUTH EVERY DAY Start: 01-07-2019 End: 09-08-2019 take 10 mg by mouth once daily Minoxidil Discontinued 10 MG PO Daily January 07, 2019 12:00am September 08, 2019 12:38pm Pro-Stat Oral Liquid (10 sources) take 30 mL by mouth twice daily Pro-Stat Oral Liquid 30 ML TWICE DAILY Quantity: 0 Refills: 0 Ordered: 30-May-2021 DO Active sevelamer carbonate 800 mg oral tablet (20 sources) Phosphate Binder Start: 01-03-2021 Sevelamer Carbonate 800 MG Oral Tablet 2 pills every meal and 1 with snacks Quantity: 0 Refills: 0 Ordered: 03-Jan-2021 DO Start : 03-Jan-2021 Active Start: 03-22-2020 Sevelamer Carb kamlesh Active 2400 MG PO Three times daily March 22, 2020 12:00am TWO (2)WITH EVERY MEAL AND ONE (1) WITH SNACKS Start: 03-22-2020 Sevelamer Carb kamlesh Active 800 MG PO As Directed March 22, 2020 1:00am TWO (2)WITH EVERY MEAL AND ONE (1) WITH SNACKS Start: 03-17-2020 End: 03-22-2020 take 800 mg by mouth three times daily Sevelamer Hcl Discontinued 800 MG PO Three times daily March 17, 2020 12:00am March 22, 2020 4:44pm take 3 tablets by mo uth three times daily at mealtime Sevelamer Carbonate 800 mg TAKE 3 TABLETS BY MOUTH THREE TIMES DAILY WITH MEALS for 20 Active take 2 tablets by mo uth three times daily at mealtime Sevelamer Carbonate 800 MG TAKES 2 TABLET BY MOUTH THREE TIMES DAILY WITH MEALS Oral for 90 Active take 1 tablet by marshal th at mealtime Sevelamer Carbonate 800 MG 1 tablet with meals Orally with snacks Not-Taking 5 ml sodium ferric gluconate complex 12.5 mg/ml injection (20 sources) Start: 01-24-2021 End: 03-06-2022 Sodium Ferric Gluconat-Sucro se (Ferrlecit) 62.5 mg/5 mL Solution Discontinued 125 MG IV As Directed January 24, 2021 12:00am March 06, 2022 12:09pm take 12.5 mg intravenously every week Ferrlecit 12.5 MG/ML Intravenous Solution 12.5 mg everoy other week dialysis days Quantity: 0 Refills: 0 Ordered: 30-May-2021 DO Active Ferrlecit Not-Ta genesis Ferrlecit Active sulfaSALAzine 500 mg oral tablet (9 sources) Aminosalicylate Start: 11-17-2019 End: 11-18-2019 take 1 tablet by mouth four times daily Sulfasalazine (Azulfidine) 500 mg tablet Discontinued 500 MG PO Four times daily November 16, 2019 11:00pm November 18, 2019 4:44pm TAKE 1 TABLET BY MOUTH FOUR TIMES DAILY verapamil hydrochloride 240 mg extended release oral tablet (18 sources) Calcium Channel Arsen Start: 08-20-2019 End: 11-25-2019 take 1 tablet by mouth once daily Verapamil (Calan Sr) 240 mg Tablet Extended Release Discontinued 240 MG PO Daily August 19, 2019 11:00pm November 25, 2019 10:53am Start: 01-07-2019 End: 03-26-2019 take 240 mg by mouth once daily at bedtime Verapamil Discontinued 240 MG PO Daily at bedtime January 07, 2019 12:00am March 26, 2019 8:45am Problems Active Problems Problem Classification Problem Date Documented Date Episodic/Chronic Acute and unspecified renal failure (17 sources) Renal failure syndrome; Translations: [Unspecified kidney failure] Onset: 2 Resolved: 2 Chronic Cardiac dysrhythmias (20 sources) Persistent atrial fibrillation; Translations: [Atrial fibrillation] Onset: 2 09-15-2019 Chronic Cardiac dysrhythmias (9 sources) Sinus bradycardia; Translations: [Bradycardia, unspecified] 11-23-2019 Episodic Chronic kidney disease (20 sources) Chronic kidney disease stage 5 on dialysis; Translations: [End stage renal disease] Onset: 2 Resolved: 2 Chronic Chronic obstructive pulmonary disease and bronchiectasis (20 sources) Chronic obstructive lung disease; Translations: [Chronic airway obstruction, not elsewhere classified] Chronic Chronic ulcer of skin (9 sources) Non-pressure chronic ulcer of other part of left foot with unspecified severity; Translations: [Ulcer of left foot] 03-30-2020 Chronic Complication of device; implant or graft (20 sources) Arteriovenous fistula stenosis; Translations: [Stenosis of other vascular prosthetic devices, implants and grafts, initial encounter] Onset: 1 Resolved: 1 Chronic Complication of device; implant or graft (11 sources) Other mechanical complication of other vascular grafts, initial encounter; Translations: [Mechanical complication of arteriovenous surgical fistula] Onset: 2 Resolved: 2 Episodic Congestive heart failure; nonhypertensive (20 sources) Congestive heart failure; Translations: [Heart failure, unspecified] 09-05-2019 Chronic Coronary atherosclerosis and other heart disease (9 sources) Coronary arteriosclerosis; Translations: [Atherosclerotic heart disease of [place] coronary artery without angina pectoris] 09-16-2019 Chronic Deficiency and other anemia (20 sources) Anemia of chronic disease; Translations: [Anemia in chronic kidney disease] Chronic Deficiency and other anemia (13 sources) Anemia due to chronic blood loss; Translations: [Iron deficiency anemia secondary to blood loss (chronic)] Chronic Deficiency and other anemia (13 sources) Iron deficiency anemia; Translations: [Iron deficiency anemia, unspecified] Episodic Deficiency and other anemia (1 source) Iron deficiency anemia, unspecified Episodic Disorders of lipid metabolism (20 sources) Hyperlipidemia; Translations: [Other and unspecified hyperlipidemia] 09-14-2019 Chronic Esophageal disorders (20 sources) Gastroesophageal reflux disease; Translations: [Gastro-esophageal reflux disease without esophagitis] 11-17-2019 Chronic Essential hypertension (20 sources) Essential hypertension; Translations: [Unspecified essential hypertension] 09-14-2019 Chronic Fluid and electrolyte disorders (13 sources) Hyponatremia; Translations: [Hypo-osmolality and hyponatremia] Onset: 3 11-18-2019 Episodic Gastrointestinal hemorrhage (14 sources) Hematochezia; Translations: [Melena] Onset: 2 Resolved: 2 Episodic Heart valve disorders (20 sources) Tricuspid valve regurgitation; Translations: [Diseases of tricuspid valve] Chronic Hypertension with complications and secondary hypertension (20 sources) Hypertensive renal disease; Translations: [Hypertensive chronic kidney disease with stage 1 through stage 4 chronic kidney disease, or unspecified chronic kidney disease] 09-14-2019 Chronic Immunizations and screening for infectious disease (6 sources) Patient encounter status; Translations: [Other specified vaccination] Episodic Lymphadenitis (9 sources) Mediastinal lymphadenopathy; Translations: [Localized enlarged lymph nodes] 09-14-2019 Episodic Nephritis; nephrosis; renal sclerosis (20 sources) Chronic glomerulonephritis; Translations: [Chronic glomerulonephritis in diseases classified elsewhere] Chronic Other aftercare (20 sources) Drug therapy finding; Translations: [Long-term (current) use of other medications] Episodic Other aftercare (20 sources) Long-term current use of anticoagulant; Translations: [exterminator helper termite (current) use of anticoagulants] Episodic Other aftercare (2 sources) exterminator helper termite (current) use of anticoagulants; Translations: [BIOENGINEER CURRNT USE ANTICOAGULANTS] Onset: 2 Resolved: 2 Episodic Other aftercare (5 sources) Encounter for therapeutic drug level monitoring; Translations: [[facility]] Onset: 3 Episodic Other circulatory disease (16 sources) Peripheral arterial occlusive disease; Translations: [Disorder of arteries and arterioles, unspecified] Chronic Other circulatory disease (3 sources) Disorder of arteries and arterioles, unspecified Onset: 2 Resolved: 2 Chronic Other circulatory disease (18 sources) Arteriovenous fistula; Translations: [Arteriovenous fistula, acquired] 11-24-2019 Chronic Other circulatory disease (7 sources) Arteriovenous fistula, acquired; Translations: [Arteriovenous fistula, acquired] Chronic Other diseases of kidney and ureters (16 sources) Hyperparathyroidism due to renal insufficiency; Translations: [Secondary hyperparathyroidism of renal origin] Chronic Other diseases of kidney and ureters (9 sources) Secondary hyperparathyroidism; Translations: [Secondary hyperparathyroidism of renal origin] 03-30-2020 Chronic Other gastrointestinal disorders (16 sources) Ulceration of intestine; Translations: [Ulcer of intestine] Episodic Other gastrointestinal disorders (16 sources) Occult blood in stools; Translations: [Other fecal abnormalities] Episodic Other hematologic conditions (9 sources) Raised cardiac enzyme or marker; Translations: [Other specified abnormalities of plasma proteins] 09-15-2019 Episodic Other lower respiratory disease (20 sources) Dyspnea; Translations: [Shortness of breath] Episodic Other nervous system disorders (16 sources) Chronic pain; Translations: [Other chronic pain] Chronic Other nervous system disorders (16 sources) Common peroneal nerve paralysis; 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, left lower limb] Chronic Other nutritional; endocrine; and metabolic disorders (20 sources) Overweight in adulthood with body mass index of 25 or more but less than 30; Translations: [Overweight] Episodic Peripheral and visceral atherosclerosis (20 sources) Peripheral vascular disease, unspecified; Translations: [Atherosclerosis of artery of lower limb] Onset: 1 Resolved: 2 Chronic Pleurisy; pneumothorax; pulmonary collapse (9 sources) Pleural effusion; Translations: [Pleural effusion, not elsewhere classified] 09-15-2019 Episodic Pulmonary heart disease (20 sources) Pulmonary hypertension; Translations: [Other chronic pulmonary heart diseases] 09-15-2019 Chronic Screening and history of mental health and substance abuse codes (20 sources) Ex-smoker; Translations: [Personal history of tobacco use] Episodic Comment on above: quit 2000; Spondylosis; intervertebral disc disorders; other back problems (20 sources) Degeneration of lumbar intervertebral disc; Translations: [Other intervertebral disc degeneration, lumbar region] Chronic Spondylosis; intervertebral disc disorders; other back problems (9 sources) Spinal stenosis of lumbar region; Translations: [Spinal stenosis, lumbar region without neurogenic claudication] 11-22-2019 Episodic Unclassified (5 sources) Chronic atrial fibrillation, unspecified; Translations: [CHRONIC ATRIAL FIBRILLATION UNSPEC] Onset: 3 Unclassified (2 sources) CONTACT W/AND (SUSP) EXPOS COVID-19; Translations: [CONTACT W/AND (SUSP) EXPOS COVID-19] Onset: 3 Viral infection (1 source) COVID-19; Translations: [COVID-19] Onset: 3 Past or Other Problems Problem Classification Problem Date Documented Da te Episodic/Chronic Other aftercare (1 source) exterminator helper termite (current) use of aspirin; Translations: [RETIREMENT CURRENT USE OF ASPIRIN] Onset: 08-30-2021 Episodic Other aftercare (1 source) Other manager terminal (current) drug therapy; Translations: [OTH BIOENGINEER CURRENT DRUG THERAPY] Onset: 08-30-2021 Episodic Superficial injury; contusion (2 sources) Contusion of left upper arm, initial encounter Onset: 06-22-2021 Resolved: 06-22-2021 Episodic Unclassified (1 source) CONTACT W/AND (SUSP) EXPOS COVID-19; Translations: [CONTACT W/AND (SUSP) EXPOS COVID-19] Onset: 06-01-2022 Results Test Name Value Interpretation Reference Range Facility US AV Fistulaon 03-16-2023 US AV Fistula [facility] Main [place] [id number] Ultrasound Report Signed Patient: Edita Duggan MR#: [id number] : 1950 Acct:[id number] Age/Sex: 72 / F ADM Date: 03/14/23 Loc: [facility] Room: Type: [facility] Attending Dr: Dillon Wilson MD Ordering Provider: Dillon Wilson MD Date of Service: 03/14/23 US/US AV Fistula: T82.898A Copies to: Dillon Wilson MD Left upper extremity fistula duplex evaluation INDICATIONS: Dysfunctional AV fistula FINDINGS: Left upper extremity: Flow velocities are extremely low at 118 cc/m. The fistula is patent. Narrowing is identified. US/US AV Fistula IMPRESSION: As above. Impression dictated by: Dillon Wilson MD03/16/2023 2:17 PM Dictation Location: [place] [address] Tech: Lauren Apple Transcribed By: MERVAT 03/16/23 141 Dictated By: Dillon Wilson MD 03/16/231416 Signed By: 03/16/23 141 [facility] US ankle/arm indiceson 11-22 US ankle/arm indices [facility] Main [address] [address] Ultrasound Report Signed Patient: Edita Duggan MR#: [id number] : 1950 Acct:[id number] Age/Sex: 72 / F ADM Date: 11/22/22 Loc: [facility] Room: Type: REG CLI Attending Dr: Corinne SANTIAGO Ordering Provider: Corinne Corrigan APRN Date of Service: 11/22/22 US/US ankle/arm indices: I70.213 Copies to: Corinne Corrigan APRN LOWER EXTREMITY SEGMENTAL ARTERIAL DOPSCAN (PVR) INDICATION: Surveillance study for left leg bypass graft. PROCEDURE: Right arm blood pressure is 192. Pressures of the right leg are 54 at the ankle using the posterior tibial artery and 75 at the ankle using the dorsalis pedis artery with ankle-brachial index of 0.39 0.28 . Pressures of the left leg are cn at the ankle using the posterior tibial artery and co at the ankle using the dorsalis pedis artery with ankle-brachial index of -NC- -NC- . Wave forms by plethysmography are phasic in the right lower extremity and strongly biphasic in the left lower extremity.. US/US ankle/arm indices IMPRESSION: SEVERE PERIPHERAL ARTERIAL DISEASE OF THE RIGHT LOWER EXTREMITY AT REST. THE PATIENT IS MOST LIKELY TO HAVE MULTI LEVEL DISEASE OF THE RIGHT LOWER EXTREMITY. Impression dictated by: Dillon Wilson MD11/22/2022 1:22 PM Dictation Location: [place] [address] Tech: Zoey Gonzalez Transcribed By: MERVAT 11/22/22 1322 Dictated By: Dillon Wilson MD 11/22/22 1321 Signed By: 11/22/22 1322 [facility] US arterial duplex LE on 0 11-22-2022 US arterial duplex [place] [address] Ultrasound Report Signed Patient: Edita Duggan MR#: [id number] : 1950 Acct:[id number] Age/Sex: 72 / F ADM Date: 11/22/22 Loc: [facility] Room: Type: REG CLI Attending Dr: Corinne SANTIAGO Ordering Provider: Corinne Corrigan APRN Date of Service: 11/22/22 US/US arterial duplex LE LT: I70.213 Copies to: Corinne Corrigan APRN Extremity arterial duplex evaluation INDICATIONS: Surveillance study for left lower extremity bypass graft. FINDINGS: Left lower extremity: No significantly elevated velocities were identified. No low velocities were identified. Bypass is patent. US/US arterial duplex LE LT IMPRESSION: As above Impression dictated by: Dillon Wilson MD11/22/2022 1:21 PM Dictation Location: [place] [address] Tech: Zoey Gonzalez Transcribed By: MERVAT 11/22/22 132 Dictated By: Dillon Wilson MD 11/22/22 132 Signed By: 11/22/22 132 [facility] Office Visit (Cardiology)on 08-20-2022 Follow-up visit Diagnoses/Problems Assessed Persistent atrial fibrillation (427.31) (I48.19) Pulmonary hypertension (416.8) (I27.20) Stage 5 chronic kidney disease on dialysis (585.6) (N18.6,Z99.2) Tricuspid regurgitation (397.0) (I07.1) Hyperlipidemia (272.4) (E78.5) Essential hypertension (401.9) (I10) COPD (chronic obstructive pulmonary disease) (496) (J44.9) Chronic glomerulonephritis in diseases classified elsewhere (582.81) (N03.9) High risk medication use (V58.69) (Z79.899) Former smoker (V15.82) (Z87.891) quit 2000 Overweight with body mass index (BMI) of 29 to 29.9 in adult (278.02,V85.25) (E66.3,Z68.29) Orders Overweight with body mass index (BMI) of 29 to 29.9 in adult Healthy Weight Tips; Status:Complete - Retrospective Authorization; Done: 20Aug2022 Some eating tips that can help you lose weight.; Status:Complete - Retrospective Authorization; Done: 20Aug2022 SocHx: Former smoker Tobacco Use Screening; Status:Complete; Done: 20Aug2022 Patient Instructions Please bring all medicines, vitamins, and herbal supplements with you when you come to the office. Prescriptions will not be filled unless you are compliant with your follow up appointments or have a follow up appointment scheduled as per instruction of your physician. Refills should be requested at the time of your visit. Continue with Coumadin management follow up as directed. Follow up in 9 months Patient to have labs sent from PCP office. Chief Complaint EDITA DUGGAN is being seen for a 6 month follow-up of. History of Present Illness nephrology told her to hold coreg on days of dialysis Patient returns for follow-up of problems as noted. Blood pressure stable and she has no orthostatic symptoms. Lipids are adequately addressed. Persistent atrial fibrillation is well-tolerated with a combination of low-dose carvedilol for rate control as well as warfarin. The merits of diet and weight loss and its favorable impact on blood pressure as well as pulmonary hypertension were emphasized. We also note that her pulmonary hypertension is directly influenced by her volume status and/or dialysis management and hence we defer such management to nephrology. Curiously they advised her to hold Coreg and she was advised only to do so in the mornings of her dialysis procedure. 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 Biotin 5000 MCG Oral TabletTAKE 2 TABLET Daily Bumetanide 1 MG Oral TabletTake 1 tablet daily Carvedilol 3.125 MG Oral Tablettake 1 tabelet twice dialy on sun, tue, thur, sat. Cinacalcet HCl - 30 MG Oral Tablet3 times weekly dialysis days Docusate Sodium 100 MG Oral CapsuleTAKE 1 CAPSULE BY MOUTH TWICE DAILY NEEDED Ferrlecit 12.5 MG/ML Intravenous Ptodepvm20.5 mg everoy other week dialysis days Midodrine HCl - 5 MG Oral Tablettake 1 tablet before treatment and 1 tablet after treatment for low blood pressure. MiraLax 17 GM/SCOOP Oral PowderMIX 1 CAPFUL (17GM) IN 8 OUNCES OF WATER, JUICE, OR TEA AND DRINK DAILY. Pantoprazole Sodium 20 MG Oral Tablet Delayed ReleaseTAKE 1 TABLET BY MOUTH ONCE DAILY Pro-Stat Oral Ibhhrd57 ML TWICE DAILY Audrey-Rafael Oral TabletTake 1 tablet daily Rosuvastatin Calcium 10 MG Oral TabletTAKE 1 TABLET BY MOUTH ONCE DAILY Sevelamer Carbonate 800 MG Oral Tablet2 pills every meal and 1 with snacks Tylenol 325 MG Oral TabletTAKE 2 TABLET Every 6 hours PRN Warfarin Sodium 2 MG Oral TabletTAKE DIRECTED BY [facility] Zemplar 2 MCG/ML Intravenous Solution7 mcg 3 times weekly on dialysis days Allergies Medication Penicillins Allergy; Hives;; Updated By: Jocelyn Stubbs; 04/04/2021 11:18:13 AM Lipitor Adverse Reaction; Myalgia; Recorded By: Elizabeth Scruggs; 05/30/2021 3:29:51 PM Tuberculin Tests Recorded By: Elizabeth Scruggs; 05/30/2021 3:29:51 PM Social History Problems Caffeine use (V49.89) (Z78.9) Coffee 1 cup daily Former smoker (V15.82) (Z87.891) quit 2000 No alcohol use No illicit drug use Review of Systems Constitutional: not feeling tired. Eyes: no eyesight problems. ENT: no hearing loss and no nosebleeds. Cardiovascular: no intermittent leg claudication and as noted in HPI. Respiratory: no chronic cough and no shortness of breath. Gastrointestinal: no change in bowel habits and no blood in stools. Genitourinary: no urinary frequency. Skin: no skin rashes. Neurological: no seizures and no frequent falls. Psychiatric: no depression and not suicidal. All other systems have been reviewed and are negative for comp (more content not included)... [employer] Tobacco Screening.on 023 Fall risk assessment a) No falls within the last year [facility] [address] DO Work Phone: Tobacco use status [facility] b) No [facility] [address] DO Work Phone: US UNI ankle/arm indiceson 0 07-26-2022 US UNI ankle/arm indices [facility] Main [place] [address] [place] [address] Ultrasound Report Signed Patient: Edita Duggan MR#: [id number] : 1950 Acct:[id number] Age/Sex: 71 / F ADM Date: 07/26/22 Loc: [facility] Room: Type: [facility] CLI Attending Dr: Dillon Wilson MD Ordering Provider: Dillon Wilson MD Date of Service: 07/26/22 US/US UNI ankle/arm indices: I70.212 Copies to: Dillon Wilson MD LOWER EXTREMITY SEGMENTAL ARTERIAL DOPSCAN (PVR) INDICATION: Surveillance study for known left femoropopliteal bypass PROCEDURE: Right arm blood pressure is 94. Pressures of the left leg are cno at the ankle using the posterior tibial artery and cno at the ankle using the dorsalis pedis artery with ankle-brachial index of -NC- -NC- . Wave forms by plethysmography are biphasic in the left lower extremity. US/US UNI ankle/arm indices IMPRESSION: MODERATE PERIPHERAL ARTERIAL DISEASE OF THE LEFT LOWER EXTREMITY AT REST. Impression dictated by: Dillon Wilson MD07/26/2022 2:39 PM Dictation Location: [place] [address] Tech: Roberta De Guzman Transcribed By: MERVAT 07/26/22 1439 Dictated By: Dillon Wilson MD 07/26/22 1437 Signed By: 07/26/22 1439 [facility] US arterial duplex LE on 0 07-26-2022 US arterial duplex [place] [address] Ultrasound Report Signed Patient: Edita Duggan MR#: [id number] : 1950 Acct:[id number] Age/Sex: 71 / F ADM Date: 07/26/22 Loc: [facility] Room: Type: [facility] CLI Attending Dr: Dillon Wilson MD Ordering Provider: Dillon Wilson MD Date of Service: 07/26/22 US/US arterial duplex LE LT: I70.212 Copies to: Dillon Wilson MD Left lower extremity graft duplex evaluation INDICATIONS: Surveillance for known left femoropopliteal bypass to FINDINGS: Left lower extremity: The bypass is patent. Flow velocities are identified. Osseous have diminished since the last evaluation. US/US arterial duplex LE LT IMPRESSION: Threatened Left Leg bypass. Impending failure. Impression dictated by: Dillon Wilson MD07/26/2022 2:41 PM Dictation Location: [place] [address] Tech: Roberta De Guzman Transcribed By: MERVAT 07/26/22 1441 Dictated By: Dillon Wilson MD 07/26/22 1439 Signed By: 07/26/22 1441 [facility] POTASSIUMon 07-13-2022 Potassium [Moles/Vol] 5.6 mmol/L Critically high 3.5-5.1 [facility] Comment on above: Performed By: #### K #### [facility] [address] [place] [address] [address] Neto Cornell POTASSIUMon 06-04-2022 Potassium [Moles/Vol] 5.3 mmol/L Critically high 3.5-5.1 [facility] Comment on above: Performed By: #### K #### [facility] [address] [place] [address] [address] Neto Cornell Covid-19 PCR (CVDTBH)on SARS-CoV-2 (COVID-19) RNA MARCO+probe Ql (Unsp spec) Detected Abnormal NOT DETECTED [facility] Comment on above: Result Comment: This test is not yet approved or cleared by the [place] FDA. When there are no FDA-approved or cleared tests available, and other criteria are met, FDA can make tests available under an emergency access mechanism called an Emergency Use Authorization (EUA). The EUA for this test is supported by the [place] of Health and Human Service's (HHS's) declaration that circumstances exist to justify the emergency use of in vitro diagnostics for the detection and/or diagnosis of the virus that causes COVID-19. This EUA will remain in effect (meaning this test can be used) for the duration of the COVID-19 declaration justifying emergency of IVDs, unless it is terminated or revoked by FDA (after which the test may no longer be used). Performed By: #### C VDTBH #### [facility] [address] [place] [address] [address] Neto Cornell Office Visit (Cardiology)on 03-20-2022 Follow-up visit Diagnoses/Problems Assessed Stage 5 chronic kidney disease on dialysis (585.6) (N18.6,Z99.2) COPD (chronic obstructive pulmonary disease) (496) (J44.9) Encounter for immunization (V03.89) (Z23) High risk medication use (V58.69) (Z79.899) Persistent atrial fibrillation (427.31) (I48.19) Pulmonary hypertension (416.8) (I27.20) Hyperlipidemia (272.4) (E78.5) Essential hypertension (401.9) (I10) Overweight with body mass index (BMI) of 28 to 28.9 in adult (278.02,V85.24) (E66.3,Z68.28) Former smoker (V15.82) (Z87.891) quit 2000 Orders COPD (chronic obstructive pulmonary disease), Essential hypertension, Persistent atrial fibrillation Start: Carvedilol 3.125 MG Oral Tablet (Coreg); TAKE 1 TABLET BY MOUTH TWICE DAILY Overweight with body mass index (BMI) of 28 to 28.9 in adult Healthy Weight Tips; Status:Complete; Done: 20Mar2022 Some eating tips that can help you lose weight.; Status:Complete; Done: 20Mar2022 SocHx: Former smoker Tobacco Use Screening; Status:Complete; Done: 20Mar2022 Patient Instructions Please bring all medicines, vitamins, and herbal supplements with you when you come to the office. Prescriptions will not be filled unless you are compliant with your follow up appointments or have a follow up appointment scheduled as per instruction of your physician. Refills should be requested at the time of your visit. Follow up in 4 months Chief Complaint EDITA DUGGAN is being seen for a 6 month follow-up of. History of Present Illness Patient returns in follow-up of problems as noted. In the interim she is done relatively well. Her previously performed Holter monitor demonstrated wide variability in heart rate. Today in the office, though, her resting heart rate by my stethoscope auscultation is 110 bpm and this would suggest the need for rate control. Because of this we will slowly implement low-dose beta-arsen therapies and intensify as tolerated. The reason and/or rationale for doing so, to prevent cardiomyopathy, was explained. In regards to other problems she is doing well in regards to dialysis. She had a recent fistulogram and fistula angioplasty with improved fistula function. Pulmonary hypertension has improved with dialysis and the maintenance of euvolemia. Her atrial fibrillation, as above, is tolerated but I believe we should improve rate control and obviously continue antithrombotic therapy to mitigate stroke risk. Management of lipids and blood pressure appear to be satisfactory because of all the above we suggest no change. As before the merits of diet were advocated. Surgical History Problems History of Appendectomy History of Arteriovenous fistula revision procedure History of Arteriovenous graft fistula creation procedure left side History of Cholecystectomy History of Complete colonoscopy August2019 History of Hysterectomy partial History of Leg surgery History of Tonsillectomy History of Vascular surgical procedure Current Meds Medication NameInstruction Aspirin EC 81 MG Oral Tablet Delayed ReleaseTAKE 1 TABLET DAILY. Biotin 5000 MCG Oral TabletTAKE 2 TABLET Daily Bumetanide 1 MG Oral TabletTake 1 tablet daily Cinacalcet HCl - 30 MG Oral Tablet3 times weekly dialysis days Docusate Sodium 100 MG Oral CapsuleTAKE 1 CAPSULE BY MOUTH TWICE DAILY NEEDED Ferrlecit 12.5 MG/ML Intravenous Jvmrhcwg51.5 mg everoy other week dialysis days MiraLax 17 GM/SCOOP Oral PowderMIX 1 CAPFUL (17GM) IN 8 OUNCES OF WATER, JUICE, OR TEA AND DRINK DAILY. Pantoprazole Sodium 20 MG Oral Tablet Delayed ReleaseTAKE 1 TABLET BY MOUTH ONCE DAILY Pro-Stat Oral Lqkpzm77 ML TWICE DAILY Audrey-Rafael Oral TabletTake 1 tablet daily Rosuvastatin Calcium 10 MG Oral TabletTAKE 1 TABLET BY MOUTH ONCE DAILY Sevelamer Carbonate 800 MG Oral Tablet2 pills every meal and 1 with snacks Tylenol 325 MG Oral TabletTAKE 2 TABLET Every 6 hours PRN Warfarin Sodium 2 MG Oral TabletTAKE DIRECTED BY [facility] Zemplar 2 MCG/ML Intravenous Solution7 mcg 3 times weekly on dialysis days Patient did not bring medication list or bottles. Updated verbally with patient Allergies Medication Penicillins Allergy; Hives;; Updated By: Jocelyn Stubbs; 04/04/2021 11:18:13 AM Lipitor Adverse Reaction; Myalgia; Recorded By: Elizabeth Scruggs; 05/30/2021 3:29:51 PM Tuberculin Tests Recorded By: Elizabeth Scruggs; 05/30/2021 3:29:51 PM Social History Problems Caffeine use (V49.89) (Z78.9) Coffee 1 cup daily Former smoker (V15.82) (Z87.891) quit 2000 No alcohol use No illicit drug use Review of Systems Constitutional: not feeling tired. Eyes: no eyesight problems. ENT: no hearing loss and no nosebleeds. Cardiovascular: no intermittent leg claudication and as noted in HPI. Respiratory: no chronic cough and no shortness of breath. Gastrointestinal: no change in bowel habits and no blood in stools. Genitourinary: no urinary frequency. Skin: no skin rashes. Neurological (more content not included)... Normal [employer] Tobacco Screening.on 023 Adult depression screening assessment No [facility] 250 DO Work Phone: Fall risk assessment a) No falls within the last year [facility] 250 DO Work Phone: Tobacco use status CPHS b) No [facility] 250 DO Work Phone: Laboratory - CoagulationOrde red By: Dillon Wilson on 03-07-2022 PT Coag (PPP) [Time] 21.9 s 9.0-12.9 [facility] Platelet poor plasma interna tional normalized ratio (INR) by coagulation assay (relatOrdered By: Dillon Wilson on 03-07-2022 INR Coag (PPP) [Relative time] 1.9 {INR} [facility] Comment on above: INR Therapeutic Rang e A) Pre- and Peroperative OAT started two weeks before surgery. NOT HIP SURGERY: 1.5 - 2.5 HIP SURGERY: 2 - 3B) Primary and secondary prevention of venous THROMBOSIS: 2 - 3C) Active venous thrombosis, pulmonary embolismand prevention of recurrent venous thrombosis: 2 - 3D) Prevention of arterial thromboembolismincluding patients with mechanical heart valves: 3 - 4.5 CBC AUTO DIFFon 08-29-2021 BASO # 0.1 103/ul Normal 0.0-0.1 [facility] Comment on above: Performed By: #### C BC #### [facility] [address] [address] [address] Neto Cornell Basophils/100 WBC (Bld) 0.9 % Normal 0.2-2.0 [facility] Comment on above: Performed By: #### C BC #### [facility] [address] [address] [address] Neto Cornell EO # 0.1 103/ul Normal 0.0-0.7 [facility] Comment on above: Performed By: #### C BC #### [facility] [address] [address] [address] Neto Cornell Eosinophils/100 WBC (Bld) 1.1 % Normal 0.9-7.0 [facility] Comment on above: Performed By: #### C BC #### [facility] [address] [address] [address] Neto Cornell Erythrocyte distribution width (RBC) [Ratio] 15.0 % Normal 11.0-15.0 [facility] Comment on above: Performed By: #### C BC #### [facility] [address] [place] [address] Dr. Neto Cornell Hematocrit (Bld) [Volume fraction] 35.8 % Critically low 36.0-48.0 [facility] Comment on above: Performed By: #### C BC #### [facility] [address] [place] [address] Dr. Neto Cornell Hemoglobin (Bld) [Mass/Vol] 11.8 g/dL Critically low 12.0-16.0 [facility] Comment on above: Performed By: #### C BC #### [facility] [address] [place] [address] Dr. Neto Cornell IG # 0.06 10e3/ul Critically high 0.00-0.03 [facility] Comment on above: Performed By: #### C BC #### [facility] [address] [address] [address] Neto Cornell IG % 0.7 % Critically high 0.0-0.5 [facility] Comment on above: Performed By: #### C BC #### [facility] [address] [place] [address] Dr. Neto Cornell LYMPH # 1.9 103/ul Normal 1.2-3.8 [facility] Comment on above: Performed By: #### C BC #### [facility] [address] [place] [address] Dr. Neto Cornell Lymphocytes/100 WBC (Bld) 20.2 % Critically low 20.5-60.0 [facility] Comment on above: Performed By: #### C BC #### [facility] [address] [place] [address] Dr. Neto Cornell MANUAL DIFF REQ NO Normal [facility] Comment on above: Performed By: #### C BC #### [facility] [address] [place] [address] Dr. Neto Cornell MCH (RBC) [Entitic mass] 32.8 pg Normal 26.7-34.0 [facility] Comment on above: Performed By: #### C BC #### [facility] [address] [place] [address] Dr. Neto Cornell MCHC (RBC) [Mass/Vol] 33.0 g/dL Normal 29.9-35.2 [facility] Comment on above: Performed By: #### C BC #### [facility] [address] [place] [address] Dr. Neto Cornell MCV (RBC) [Entitic vol] 99.4 fL Critically high 81.0-99.0 [facility] Comment on above: Performed By: #### C BC #### [facility] [address] [place] [address] Dr. Neto Cornell MONO # 0.9 103/ul Critically high 0.3-0.8 [facility] Comment on above: Performed By: #### C BC #### [facility] [address] [place] [address] Dr. Neto Cornell Monocytes/100 WBC (Bld) 9.6 % Normal 1.7-12.0 [facility] Comment on above: Performed By: #### C BC #### [facility] [address] [place] [address] Dr. Neto Cornell NEUT # 6.2 103/ul Normal 1.4-6.5 [facility] Comment on above: Performed By: #### C BC #### [facility] [address] [address] [address] Neto Cornell Neutrophils/100 WBC (Bld) 67.5 % Normal 43.0-75.0 [facility] Comment on above: Performed By: #### C BC #### [facility] [address] [address] [address] Neto Cornell Platelet mean volume (Bld) [Entitic vol] 8.7 fL Critically low 9.5-13.5 [facility] Comment on above: Performed By: #### C BC #### [facility] [address] [address] [address] Neto Cornell PLT 213 103/ul Normal 150-450 [facility] Comment on above: Performed By: #### C BC #### [facility] [address] [place] [address] Dr. Neto Cornell RBC 3.60 106/ul Critically low 4.20-5.40 [facility] Comment on above: Performed By: #### C BC #### [facility] [address] [place] [address] Dr. Neto Cornell WBC 9.2 103/ul Normal 4.0-11.0 [facility] Comment on above: Performed By: #### C BC #### [facility] [address] [place] [address] Dr. Neto Cornell PROTIMEon 08-29-2021 INR Coag (PPP) [Relative time] 2.22 {INR} Normal [facility] Comment on above: Performed By: #### P T #### [facility] [address] [place] [address] Dr. Neto Cornell INR GUIDELINES SEE BELOW Normal [facility] Comment on above: Result Comment: MERLYN RED INR: 2.0 - 3.0 CONDITIONS NOT LISTED BELOW 2.5 - 3.5 FOR PROSTHETIC HEART VALVE REPLACEMENT 2.5 - 3.5 RECURRENT THROMBOSIS Performed By: #### P T #### [facility] [address] [place] [address] Dr. Neto Cornell PT Coag (PPP) [Time] 22.8 s Critically high 9.0-11.6 [facility] Comment on above: Performed By: #### P T #### [facility] [address] [place], [place] [address] Dr. Neto Cornell Tobacco Screening.on Adult depression screening assessment No [facility] 250 DO Work Phone: [phone] Fall risk assessment a) No falls within the last year [facility] 250 DO Work Phone: [phone] Tobacco use status CPHS b) No [facility] 250 DO Work Phone: [phone] Tobacco Screening.on Fall risk assessment a) No falls within the last year [facility] 250 DO Work Phone: [phone] Tobacco use status CPHS b) No [facility]e 250 DO Work Phone: [phone] No Panel Informationon 03-28 3.14\S\3.14 Normal 0.45-5.33 [facility] 250 DO Work Phone: [phone] Comment on above: PERFORMED BY:[facility] [place], [place] [id number] MEDICAL DIRECTORKATARINA WILKERSON M.D. 35\S\35 Normal 10-42 [facility] 250 DO Work Phone: [phone] 9.8\S\9.8 Normal 8.2-10.2 [facility] 250 DO Work Phone: [phone] 00 29.1\S\29.1 Normal 22.0-30.0 [facility] 250 DO Work Phone: [phone] 90\S\90 below low threshold 95-114 [facility] 250 DO Work Phone: [phone] 5.1\S\5.1 Normal 3.5-5.1 [facility] 250 DO Work Phone: 131\S\131 below low threshold 136-146 -[facility] TeaboxRicky diaz 250 DO Work Phone: 9\S\9 Normal -[facility] Rank By Search-[place]icky diaz 250 DO Work Phone: Comment on above: GFR estimated refere nce range: According to KDOQI guidelines, <60 ml/min/1.73m2 is sufficient to diagnose a patient with chronic kidney disease. 7\S\7 Normal [facility] JrMovatuRicky diaz 250 DO Work Phone: 5.82\S\5.82 above high threshold 0.44-1.03 [facility] Te[employer] diaz 250 DO Work Phone: 26\S\26 above high threshold 9-23 [facility] Celina diaz 250 DO Work Phone: 91\S\91 Normal 70-100 [facility] Te[employer] diaz 250 DO Work Phone: Comment on above: Random Glucose Refer ence Range is dependent on time and content of last meal. Glucose of more than 200 mg/dL in a nonstressed, ambulatory subject supports the diagnosis of Diabetes Mellitus. ADA recommended reference range Radiologyon 03-28-2021 XR Chest 2 Views Normal [facility] Teab[employer]Ricky diaz 250 DO Work Phone: CNOVon 02-14-2021 CNOV Office Visit (TXCTGL ) -- EDITA DUGGAN ([id number]) 1950 F TRN Date Time Provider Department 02/14/21 1:00 PM NEPHROLOGY TXP CLINIC TXCTGL During your visit today, we recorded the following information about you: Temperature Pulse Blood pressure Weight 97.5 degrees 62/minute 125/53 76.2 kg Height 1.689 m Zeke Chin MD 02/14/2021 2:01 PM Signed [facility] Transplant Evaluation CC: Patient is a 70 year old female here for transplant candidacy evaluation. Reason for visit: here for evaluation to be a Kidney Transplant recipient. Referred by: Rayna Stapleton MD [address] [place] [address] I will communicate with the referring provider by letter and/or shared electronic medical record. 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 Patient reports renal biopsy at [facility], will obtain pathology . Patient has been on dialysis since August 2019. Other significant history includes: ? Former smoker, quit 20 years ago. 30 pack year. Will need a CT chest ? Anemia of chronic kidney disease ? Secondary hyperparathyroidism ? Hypertension ? paroxysmal atrial fibrillation status post cardioversion, patient is on Eliquis ? L leg nerve damage ? Left leg bypass, at [facility], Op-report requested. Patient reports scheduled for angiogram of L leg on 02/28/21 ? 2 pregnancies. Denies miscarriage ? cholecystectomy ? Hysterectomy, KASSIDY ? Patient denies stroke, cancer, PA, or blood clot. ACCESS: L AV fistula Patient presents in a wheelchair for long distances, she reports that she does not use assisted devices at home but when out and about uses a cane for balance related to L leg nerve damage. She also helps an extended family member (elderly woman, 89) with her ADLs. PAOD (TIA non-embolic, CVA non-embolic, amputation, carotid artery stenosis, abnormal PVRs, claudication history, decreased pulses, etc.):Yes Stroke: YES Claudication: YES Carotid Artery Stenosis: YES Malignancy (including skin cancer): No Hypercoagulable (history of DVT/PE, miscarriages, prior use of anticoagulation, etc.):Yes Prior transplant: No CKD: Yes: Cause of CKD: HTN secondary FSGS Hemodialysis, Start date: 08/2019 Living Donors: No Residual UO: 3 times a week totaling 1/2 cup DM: No PAST MEDICAL HISTORY Diagnosis Date - Anemia due to chronic kidney disease - ESRD (end stage renal disease) (HCC) - Former smoker - FSGS (focal segmental glomerulosclerosis) - HTN (hypertension) - Hyperparathyroidism (HCC) secondary to renal disease - Paroxysmal A-fib (HCC) PAST SURGICAL HISTORY Procedure Laterality Date - AV FISTULA PLACEMENT HX - REMOVAL GALLBLADDER - TOTAL ABDOM HYSTERECTOMY Current Outpatient Medications Medication Sig - amiodarone (PACERONE) 200 mg tablet Take 400 mg by mouth once daily. - Darbepoetin Herbie In Polysorbat (ARANESP, POLYSORBATE,) 25 mcg/mL injection Inject 25 mcg subcutaneously every other week. - aspirin, enteric coated (ASPIR-81) 81 mg EC tablet Take 81 mg by mouth once daily. - BIOTIN 10,000 TABLET once daily. - bumetanide (BUMEX) 1 mg tablet Take 1 mg by mouth once daily. - docusate sodium (COLACE) 100 mg capsule Take 100 mg by mouth twice daily. - diclofenac sodium/capsaicin (DICLOFENAC-CAPSAICIN TOPICAL) Apply to affected area as needed. - apixaban (ELIQUIS) 2.5 mg tab tab(s) Take by mouth twice daily. - lidocaine (LMX) 4 % cream Apply to affected area as needed. - polyethylene glycol 3350 (MIRALAX) 17 gram/dose powder Take by mouth once daily. Dissolve dose in 4 - 8 ounces of liquid and take as directed. - pantoprazole DR (PROTONIX) 20 mg tablet Take 20 mg by mouth once daily. - rosuvastatin 10 mg cpSP Take 10 mg by mouth once daily. - sevelamer carbonate (RENVELA) 800 mg tablet Take 800 mg by mouth three times daily with meals. - acetaminophen (TYLENOL) 325 mg tablet Take 650 mg by mouth every 6 hours as needed. - Paricalcitol (ZEMPLAR) 2 mcg/mL injection Inject intravenously 3 Times weekly with dialysis. No current facility-administered medications for this visit. FAMILY HISTORY Problem Relation Age of Onset - Heart Attack Father - Diabetes Father - Thyroid Cancer Sister - Diabetes Brother No family status information on file. Social History Tobacco Use - Smoking status: Former Smoker Packs/day: 1.50 Years: 30.00 Pack years: 45.00 Quit date: 2000 Years since quittin.9 - Smokeless tobacco: Not on file Substance Use Topics - Alcohol use: Not on file - Drug use: Not on file Pre-transplant testing: Cardiac: Per patient recent cardiac work up at [facility], records requested. PAP Test: Not applicable, [facility]. Mammogram: Completed on 06/30/20, results FINDINGS: DIAGNOSTIC CATEGORY (more content not included)... Normal [facility] CNOV Office Visit (TXCTGL ) -- EDITA DUGGAN ([id number]) 1950 F TRN Date Time Provider Department 02/14/21 12:30 PM UROLOGY TXP CLINIC TXCTGL During your visit today, we recorded the following information about you: Temperature Pulse Blood pressure Weight 97.5 degrees 62/minute 125/53 76.2 kg Height 1.689 m Mary Rivers MD 02/14/2021 2:10 PM Signed [facility] Transplant Evaluation CC: Patient is a 70 year old female here for transplant candidacy evaluation. Reason for visit: here for evaluation to be a Kidney Transplant recipient. Referred by: Rayna Stapleton MD [address] [facility] [id number] I will communicate with the referring provider by letter and/or shared electronic medical record. 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 Patient reports renal biopsy at [facility], will obtain pathology . Patient has been on dialysis since August 2019. Other significant history includes: ? Former smoker, quit 20 years ago. 30 pack year. Will need a CT chest ? Anemia of chronic kidney disease ? Secondary hyperparathyroidism ? Hypertension ? paroxysmal atrial fibrillation status post cardioversion, patient is on Eliquis ? L leg nerve damage ? Left leg bypass, at [facility], Op-report requested. Patient reports scheduled for angiogram of L leg on 02/28/21 ? 2 pregnancies. Denies miscarriage ? cholecystectomy ? Hysterectomy, KASSIDY ? Patient denies stroke, cancer, PA, or blood clot. ACCESS: L AV fistula Patient presents in a wheelchair for long distances, she reports that she does not use assisted devices at home but when out and about uses a cane for balance related to L leg nerve damage. She also helps an extended family member (elderly woman, 89) with her ADLs. On dialysis since 2019 Significant peripheral vascular disease, has required bypass LLE, needs further intervention On eliquis for paroxysmal A fib Prior transplant: No CKD: Yes: Cause of CKD: HTN secondary FSGS Hemodialysis, Start date: 08/2019 Living Donors: No Residual UO: 3 times a week totaling 1/2 cup DM: No PAST MEDICAL HISTORY Diagnosis Date - Anemia due to chronic kidney disease - ESRD (end stage renal disease) (HCC) - Former smoker - FSGS (focal segmental glomerulosclerosis) - HTN (hypertension) - Hyperparathyroidism (HCC) secondary to renal disease - Paroxysmal A-fib (HCC) PAST SURGICAL HISTORY Procedure Laterality Date - AV FISTULA PLACEMENT HX - REMOVAL GALLBLADDER - TOTAL ABDOM HYSTERECTOMY Current Outpatient Medications Medication Sig - amiodarone (PACERONE) 200 mg tablet Take 400 mg by mouth once daily. - Darbepoetin Herbie In Polysorbat (ARANESP, POLYSORBATE,) 25 mcg/mL injection Inject 25 mcg subcutaneously every other week. - aspirin, enteric coated (ASPIR-81) 81 mg EC tablet Take 81 mg by mouth once daily. - BIOTIN 10,000 TABLET once daily. - bumetanide (BUMEX) 1 mg tablet Take 1 mg by mouth once daily. - docusate sodium (COLACE) 100 mg capsule Take 100 mg by mouth twice daily. - diclofenac sodium/capsaicin (DICLOFENAC-CAPSAICIN TOPICAL) Apply to affected area as needed. - apixaban (ELIQUIS) 2.5 mg tab tab(s) Take by mouth twice daily. - lidocaine (LMX) 4 % cream Apply to affected area as needed. - polyethylene glycol 3350 (MIRALAX) 17 gram/dose powder Take by mouth once daily. Dissolve dose in 4 - 8 ounces of liquid and take as directed. - pantoprazole DR (PROTONIX) 20 mg tablet Take 20 mg by mouth once daily. - rosuvastatin 10 mg cpSP Take 10 mg by mouth once daily. - sevelamer carbonate (RENVELA) 800 mg tablet Take 800 mg by mouth three times daily with meals. - acetaminophen (TYLENOL) 325 mg tablet Take 650 mg by mouth every 6 hours as needed. - Paricalcitol (ZEMPLAR) 2 mcg/mL injection Inject intravenously 3 Times weekly with dialysis. No current facility-administered medications for this visit. FAMILY HISTORY Problem Relation Age of Onset - Heart Attack Father - Diabetes Father - Thyroid Cancer Sister - Diabetes Brother No family status information on file. Social History Tobacco Use - Smoking status: Former Smoker Packs/day: 1.50 Years: 30.00 Pack years: 45.00 Quit date: 2000 Years since quittin.9 - Smokeless tobacco: Not on file Substance Use Topics - Alcohol use: Not on file - Drug use: Not on file Pre-transplant testing: Cardiac: Per patient recent cardiac work up at [facility], records requested. PAP Test: Not applicable, [facility]. Mammogram: Completed on 06/30/20, results FINDINGS: DIAGNOSTIC CATEGORY 2--BENIGN FINDING: RIGHT BREAST: No significant suspicious finding. scattered benign-appearing calcifications are present. scattered benign-appearing lymph nodes are present. No significant (more content not included)... Normal [facility] CNOV Office Visit (TXCTGL ) -- EDITA DUGGAN ([id number]) 1950 F TRN Date Time Provider Department 02/14/21 7:45 AM PRE TX GROUP EDUCATION TXCTGL During your visit today, we recorded the following information about you: Yassine La RN 02/14/2021 10:09 AM Signed PRE-TRANSPLANT PATIENT EDUCATION NOTE Type of Transplant: Kidney Informed Consent for Evaluation signed: Yes Multiple Listing Form signed: Yes READINESS TO LEARN: Cognitive Ability: Alert and oriented Motivation to Learn: Interested Family Support: High - Very involved in pt care Instruction Provided to: Patient and Son Patient Learns Best by: Multiple Methods Factors Affecting Learning: None Physical Limitations Affecting Learning: None LEARNING RESPONSE: Diagnosis: ESRD Education Topics/Teaching Points: -Discussed living donor evaluation and approval process. -Discussed the evaluation and listing process. -Discussed the different types of donors (KDPI scoring, DCD, High Risk). -Explained EPTS scoring and how it is calculated. -Explained the surgical procedure and potential complications, surgeons, hospital stay at the time of transplant. -Explained lifetime immunosuppression therapy and frequency of blood draws/labs post-op and post-op course of treatment. -Reviewed National and [facility] outcomes from the most recent [facility] center-specific report; a copy of the program summary was given to the patient. -Explained that if the transplant is not performed at a Medicare-approved transplant center it could affect the ability to have immunosuppressive medications paid under Medicare Part B. Supplemental Material: -Pre-Transplant Patient Education Binder -UNOS: Questions AND Answers for Transplant Candidates about Multiple Listing and Waiting Time Transfer -UNOS: Questions AND Answers for Transplant Candidates about Kidney Allocation Policy -Directions to access [facility]'s data through the [facility] website. -Informed Consent for Transplant Program Participation patient education packet -National Kidney Registry pamphlet: Yes Method of Instruction: Group class instruction Written instruction - handouts Verbal instruction Patient/Family Response: patient verbalized understanding of the information discussed. Follow-Up Plan: Complete - No need for follow-up Referral/Recommendation: None Yassine La RN Pre-Ripening Room Hand Referring Provider: CECY LOVE [[id number]] Allergies As of Date: 02/14/2021 (Not on File) Date Reviewed: Never Reviewed Reason for Visit: Patient Education [91] Primary Visit Diagnosis:Pre-transplant evaluation for kidney transplant [Z01.818] Prescriptions as of 02/14/2021 - amiodarone (PACERONE) 200 mg tablet Take 400 mg by mouth once daily. - Darbepoetin Herbie In Polysorbat (ARANESP, POLYSORBATE,) 25 mcg/mL injection Inject 25 mcg subcutaneously every other week. - aspirin, enteric coated (ASPIR-81) 81 mg EC tablet Take 81 mg by mouth once daily. - BIOTIN 10,000 TABLET once daily. - bumetanide (BUMEX) 1 mg tablet Take 1 mg by mouth once daily. - docusate sodium (COLACE) 100 mg capsule Take 100 mg by mouth twice daily. - diclofenac sodium/capsaicin (DICLOFENAC-CAPSAICIN TOPICAL) Apply to affected area as needed. - apixaban (ELIQUIS) 2.5 mg tab tab(s) Take by mouth twice daily. - lidocaine (LMX) 4 % cream Apply to affected area as needed. - polyethylene glycol 3350 (MIRALAX) 17 gram/dose powder Take by mouth once daily. Dissolve dose in 4 - 8 ounces of liquid and take as directed. - pantoprazole DR (PROTONIX) 20 mg tablet Take 20 mg by mouth once daily. - rosuvastatin 10 mg cpSP Take 10 mg by mouth once daily. - sevelamer carbonate (RENVELA) 800 mg tablet Take 800 mg by mouth three times daily with meals. - acetaminophen (TYLENOL) 325 mg tablet Take 650 mg by mouth every 6 hours as needed. - Paricalcitol (ZEMPLAR) 2 mcg/mL injection Inject intravenously 3 Times weekly with dialysis. Problem List As Of Date: 02/14/2021 (None) Encounter Status:[facility] Social Work (TXCTGL) -- EDITA DUGGAN ([id number]) 1950 F TRN Date Time Provider Department 02/14/21 9:30 AM EVELIA GALLAGHER During your visit today, we recorded the following information about you: KRISHAN Poole 02/16/2021 11:57 AM Signed PSYCHOSOCIAL FACE TIME EVALUATION FOR KIDNEY TRANSPLANT COVID-19 PRECAUTIONS Social Supports: Pt's sister and son have confirmed support. Financial Concerns: Pt has Medicare only with a high monthly premium. She was advised to apply for Medicaid. Compliance: Good compliance reported by [facility] Mental Health: Stable Substance Abuse: Denies SIPAT: 6 REFERRAL: Edita Duggan was referred to Social Work for a psychosocial evaluation to establish if she would be a suitable candidate to receive a kidney transplant. DIALYSIS START DATE: August 2019 She receives dialysis at [facility] in [place], [place] on MWF. Phone is [phone]. The pt does use assistive devices for ambulation. She used a wheelchair today and takes a cane with her wherever she goes. This social work psychosocial evaluation was completed with Edita Duggan on February 14, 2021. She was accompanied by her son, Sedrick Lin. Race/Gender: White female [place] Citizen: Yes IDENTIFYING INFORMATION/LIVING SITUATION Edita Duggan [id number] (physical address is [facility] [place] [address]. The home is about 1.5 hours. Edita Duggan has been living in this home for four years. This is her sister's zzzhjz-ev-dxo's home. Pt cares for her. Edita Duggan is is independent with all ADL's, except cleaning and shopping. The pt drives and has a working vehicle. Caregiver responsibilities: Petrona Angulo, 89 years old. She is usually in a wheelchair. Pt helps her with ADLs. Pets in the home: None TRANSPLANT LODGING PLANS FOR PATIENTS WHO LIVE 2.5 OR MORE HOURS AWAY FROM [facility]: Do you have the financial means to stay in the area for four weeks or more post-transplant? 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 Pt had HTN. She reports that she no longer takes medications because she intentionally lost weight and started dialysis. She reports that she was in the hospital frequently in 2019 because of fluid overload. This continued until the pt started dialysis. Pt has A fib and had three cardiac surgeries. Pt has compressed discs and severe back pain, and may need surgery. Special Diets: Renal diet A1c if Diabetic: NA Edita Duggan was able to recall information that was presented to her today during the kidney transplant educational class. Pt understands that the risks of transplant are rejection, infection, bleeding, . Edita Duggan does understand and, has knowledge of the transplant process, the risks of transplant, and transplant medications. According to patient's report: Missed doctor appointments: No Missed/shortened/reschedul ed dialysis appointments: Pt reports that she missed once but ended up in the hospital. She was not feeling well and was concerned that she had COVID. She has not done this since. Knowledge of medications: Pt was able to list her medications from memory. Medication Compliance: Pt reports she puts meds in an organizer and manages her medications well. Pt forgot to take her nighttime medications once last month because she fell asleep without intending to and woke up the next morning. Have you ever stopped taking any medication because you lost your insurance you could not afford it? She reports that she is having difficulty affording Eliquis because her co-pay is $500.000. She plans to f/u with the [employer] for assistance. Have you stopped taking medication because you felt you didn't need it or because of side-effects? No Moral, caodaism, or ethical views about transplants or blood transfusions that would preclude you from a transplant? No Have you ever been transplanted, evaluated, or listed at another center: No Potential donor: No SUBSTANCE USE/ABUSE Alcohol: No alcohol use in the last 1.5 years. Pt reports that she used to drink 3 to 4 beers a day until 2008. She cut alcohol consumption down to 5 beers a year from 2019 to 2020. Tobacco: Quit 20 years ago Exposure to second hand smoke: No Illegal substances: Denies Over the Counter Medications: Tylenol for back. Opioids/Controlled Substances: Pt has a script for Oxy for back pain, but states that she doesn't take it. CAGE Questionnaire Have you ever felt you should cut down on your drinking? Yes. Years ago when she was younger. Have people annoyed you by criticizing your drinking? No. Have you ever felt bad or guilty about your drinking? Yes Have you ever had a drink first thing in the morning to steady your nerves or to get ri (more content not included)... [facility] CT ABD/PEL WO IVCONon 2020 CT ABD/PEL WO IVCON * * *Final Report* * * DATE OF EXAM: Feb 14 2021 11:28AM [facility] - CT ABD/PEL WO IVCON / PROCEDURE REASON: Pre-transplant evaluation for kidney transplant * * * * Physician Interpretation * * * * EXAMINATION: CT ABDOMEN AND PELVIS WITHOUT IV CONTRAST CLINICAL HISTORY: Pretransplant evaluation for kidney. TECHNIQUE: Non-IV contrast imaging of the abdomen and pelvis was performed using standard technique, scanning from just above the kidneys to the symphysis pubis. Unenhanced imaging is limited for the evaluation of some intra-abdominal and pelvic pathology. MQ: CTAPWO_3 Contrast: IV: None Oral: None CT Radiation dose: Integrated Dose-length product (DLP) for this visit = 225 mGy*cm. CT Dose Reduction Employed: Automated exposure control (AEC) COMPARISON: None. RESULT: Vascular calcifications: Aorta: Severe calcification Right - Common Iliac Artery: Severe calcification External Iliac Artery: Severe calcification Internal Iliac Artery: Severe calcification Left - Common Iliac Artery: Severe calcification External Iliac Artery: Severe calcification Internal Iliac Artery: Severe calcification -There is no abdominal aortic or iliac artery aneurysm. Abdomen / Pelvis: Liver: Unremarkable. Biliary: Cholecystectomy. Spleen: No splenomegaly. Pancreas: Unremarkable. Adrenals: No mass. Kidneys: Simple fluid attenuation lesions that are most likely benign cysts in the right kidney. Bilateral punctate atherosclerotic calcifications. No hydronephrosis. GI Tract: No bowel dilation. There is diverticulosis. No changes of diverticulitis. Lymph Nodes: No lymphadenopathy. Mesentery/peritoneum: No ascites. Retroperitoneum: No mass. Vasculature: Arterial atherosclerotic disease without aneurysm. Pelvis: No mass or ascites. Urinary bladder is collapsed. Bones/Soft Tissues: Degenerative changes and osteopenia. No suspicious lesion. Lower thorax: Unremarkable. Traffic Agent (topogram) images: No additional findings. IMPRESSION: Extensive aortic and iliac arterial calcifications. Acetylene Operator: TONIE Transcribe Date/Time: Feb 14 2021 11:48A Dictated by : NIGHAT BRITO MD This examination was interpreted and the report reviewed and electronically signed by: ALYSSA MEDEROS MD on Feb 14 2021 1:44PM EST [id number] [facility] EDITA DUGGAN ([id number]) 1950 F TRN Date Time Provider Department 02/10/21 INA LOPEZ During your visit today, we recorded the following information about you: Ina Lopez 02/10/2021 3:38 PM Signed Returned call to patient, advised her to eat, drink, take her medications as normal the day of her kidney transplant evaluation appointments of 02/14/21, and verbalized understanding. Ina Lopez Allergies As of Date: 02/10/2021 (Not on File) Date Reviewed: Never Reviewed Reason for Visit: Returning Patient's Call [408] Problem List As Of Date: 02/10/2021 (None) Encounter Status:Closed by INA LOPEZ on 02/10/21 [facility] No Panel Informationon 01-26 26.0\S\26.0 Normal 22.0-30.0 [facility] [place] [facility] Work Phone: Comment on above: PERFORMED BY:[place] [id number] [place], [place] [id number] MEDICAL DIRECTORKATARINA WILKERSON M.D. 92\S\92 below low threshold 95-114 [facility] [place] [address] DO Work Phone: [phone] 4.4\S\4.4 Normal 3.5-5.1 [facility] [place] [address] DO Work Phone: [phone] 133\S\133 below low threshold 136-146 [facility] [place] [facility] Work Phone: Laboratory - Microbiology an d Antimicrobial susceptibilityon 01-24-2021 SARS-CoV-2 (COVID-19) RNA MARCO+probe Ql (Unsp spec) [facility] [place] [facility] [place] Work Phone: No Panel Informationon 01-24 Negative Normal Negative [facility] [place] [facility] Work Phone: Comment on above: This is a duplicate Lena SARS Antigen (MADALYN) result to be used for statistical tracking purpose only.PERFORMED BY:[place] [address] [place] [id number] MEDICAL DIRECTORKATARINA WILKERSON M.D. Tobacco Screening.on 021 Fall risk assessment a) No falls within the last year [facility] [place] 250 DO Work Phone: Tobacco use status [facility] b) No [facility] [place] [address] DO Work Phone: [facility] 12-15-2020 [facility] Telephone (TXCTGL) -- EDITA DUGGAN ([id number]) 1950 F [facility] Date Time Provider Department 12/15/20 INA LOPEZ During your visit today, we recorded the following information about you: Ina Lopez 12/15/2020 3:51 PM Signed Ina Lopez December 15, 2020 2:20 PM Patient called and left a voicemail message requesting status of kidney transplant evaluation appointments. Routed message to return patient's call, as appointments previously scheduled. Allergies As of Date: 12/15/2020 (Not on File) Date Reviewed: Never Reviewed Reason for Visit: Return Call Request [[id number]] Appointment [186] Problem List As Of Date: 12/15/2020 (None) Encounter Status:Closed by INA LOPEZ on [facility]/15/[address] [facility] [address] [facility] EDITA DUGGAN ([id number]) 1950 F [facility] Date Time Provider Department 09/12/20 INA LOPEZ During your visit today, we recorded the following information about you: Ina Lopez 09/12/2020 10:22 AM Signed Called and spoke with patient regarding kidney transplant, intake completed, and to nurse coordinator for review. Ina Lopez Allergies As of Date: 09/12/2020 (Not on File) Date Reviewed: Never Reviewed Reason for Visit: Referral - Kidney Txp [[id number]] Primary Visit Diagnosis:Hypertension, unspecified type [I10] Other Visit Diagnoses:ESRD on dialysis (HCC) [N18.6, Z99.2] Pre-transplant evaluation for ESRD (end stage renal disease) [Z01.818] Order(s):CONSULT TO TRANSPLANT CENTER [[id number]] Order #: [id number]: 1 Problem List As Of Date: 09/12/2020 (None) Encounter Status:Closed by INA LOPEZ on 09/12/20 [facility] 09-08-2020 [facility] Telephone (TXCTGL) -- EDITA DUGGAN ([id number]) 1950 F TRN Date Time Provider Department 09/08/20 INA LOPEZ TXCTGL During your visit today, we recorded the following information about you: Ina Lopez 09/08/2020 11:41 AM Signed Returned patient's call regarding kidney transplant, she requests call back on 09/12/20 at 9:30AM for intake, and verbalized understanding. Ina Lopez Allergies As of Date: 09/08/2020 (Not on File) Date Reviewed: Never Reviewed Reason for Visit: Returning Patient's Call [408] Problem List As Of Date: 09/08/2020 (None) Encounter Status:Closed by INA LOPEZ on 09/08/20 [facility] CARDIAC STRESS/REST (ANDREW CARDIAL PERFUSION/MIBI)on 12-08-2019 [facility] CARDIAC STRESS/REST (MYOCARDIAL PERFUSION/MIBI) Patient Name: EDITA DUGGAN STUDY: MYOCARDIAL PERFUSION STRESS TEST WITH LEXISCAN Performing facility: [facility], [address], [address], [place] [address] [facility] Provider: Marguerite UREÑA PCP: Dr. Teo BYRD Supervising provider: CHARANJIT VORA INDICATION: SOB HISTORY: Gender: F; Age: 69 y/o ; Height: 167.64 cm; Weight: 62.2944445 kg. High Cholesterol; HTN SOB COPD Family HX CAD; AFIB Quit smoking REMOTE years ago. COMPARISON: ACCESSION NUMBER(S): [id number] ORDERING CLINICIAN: LEATHA UREÑA TECHNIQUE: ONE DAY protocol. Stress injection: Date:12/08/2019, 32.3 mCi of Myoview IV 20 seconds after rapid injection of Lexiscan. Rest injection: Date: 12/08/2019, 11.6 mCi of Myoview IV at rest. The patient had a rapid injection of 0.4 mg of Lexiscan IV over 10 seconds. Imaging was performed by gated tomographic technique. Reason for Lexiscan: dizziness/unsteady/fall risk STRESS TEST DATA: Resting heart rate was 59 BPM. Resting blood pressure was 124/68 mmHg. Peak blood pressure was 122/64 mmHg. Peak heart rate was 80 BPM. TEST TERMINATED DUE TO: Protocol completed FINDINGS: STRESS TEST RESULTS: Resting electrocardiogram revealed normal sinus rhythm with intraventricular conduction delay. There were no significant ischemic ECG changes or dysrhythmias. The patient did not have chest pains/symptoms during procedure. There was a normal recovery phase. IMAGING RESULTS: Image quality was good. Rest and stress tomographic images were reviewed and revealed normal perfusion without evidence of ischemia, myocardial infarction, or left ventricular dilatation with stress. Overall left ventricular systolic function appeared to be normal without regional wall motion abnormalities. Ejection fraction was 56%. TID is 1 and is normal. There were no evidence of attenuation artifact. IMPRESSION: Normal Lexiscan Myoview cardiac perfusion stress test. No evidence of ischemia or myocardial infarction by perfusion imaging. Normal left ventricular systolic function, ejection fraction 56%. No previous study available for comparison. Electronically signed by: LEATHA UREÑA MD [facility] CARDIAC STRESS/REST INJE CTIONon 12-08-2019 [facility] CARDIAC STRESS/REST INJECTION Patient Name: EDITA DUGGAN STUDY: MYOCARDIAL PERFUSION STRESS TEST WITH LEXISCAN Performing facility: [facility], [address], [address], [place] [address] [facility] Provider: Marguerite UREÑA PCP: Dr. Teo BYRD Supervising provider: CHARANJIT VORA INDICATION: SOB HISTORY: Gender: F; Age: 69 y/o ; Height: 167.64 cm; Weight: 62.2313316 kg. High Cholesterol; HTN SOB COPD Family HX CAD; AFIB Quit smoking REMOTE years ago. COMPARISON: ACCESSION NUMBER(S): [id number] ORDERING CLINICIAN: LEATHA UREÑA TECHNIQUE: ONE DAY protocol. Stress injection: Date:12/08/2019, 32.3 mCi of Myoview IV 20 seconds after rapid injection of Lexiscan. Rest injection: Date: 12/08/2019, 11.6 mCi of Myoview IV at rest. The patient had a rapid injection of 0.4 mg of Lexiscan IV over 10 seconds. Imaging was performed by gated tomographic technique. Reason for Lexiscan: dizziness/unsteady/fall risk STRESS TEST DATA: Resting heart rate was 59 BPM. Resting blood pressure was 124/68 mmHg. Peak blood pressure was 122/64 mmHg. Peak heart rate was 80 BPM. TEST TERMINATED DUE TO: Protocol completed FINDINGS: STRESS TEST RESULTS: Resting electrocardiogram revealed normal sinus rhythm with intraventricular conduction delay. There were no significant ischemic ECG changes or dysrhythmias. The patient did not have chest pains/symptoms during procedure. There was a normal recovery phase. IMAGING RESULTS: Image quality was good. Rest and stress tomographic images were reviewed and revealed normal perfusion without evidence of ischemia, myocardial infarction, or left ventricular dilatation with stress. Overall left ventricular systolic function appeared to be normal without regional wall motion abnormalities. Ejection fraction was 56%. TID is 1 and is normal. There were no evidence of attenuation artifact. IMPRESSION: Normal Lexiscan Myoview cardiac perfusion stress test. No evidence of ischemia or myocardial infarction by perfusion imaging. Normal left ventricular systolic function, ejection fraction 56%. No previous study available for comparison. Electronically signed by: LEATHA UREÑA MD [facility] PART 2 STRESS OR REST (N O CHARGE)on 12-08-2019 [facility] PART 2 STRESS OR REST (NO CHARGE) Patient Name: EDITA DUGGAN STUDY: MYOCARDIAL PERFUSION STRESS TEST WITH LEXISCAN Performing facility: [facility], [address], [address], [place] [address] [facility] Provider: Marguerite UREÑA PCP: Dr. Teo BYRD Supervising provider: CHARANJIT VORA INDICATION: SOB HISTORY: Gender: F; Age: 69 y/o ; Height: 167.64 cm; Weight: 62.3629935 kg. High Cholesterol; HTN SOB COPD Family HX CAD; AFIB Quit smoking REMOTE years ago. COMPARISON: ACCESSION NUMBER(S): [id number] ORDERING CLINICIAN: LEATHA UREÑA TECHNIQUE: ONE DAY protocol. Stress injection: Date:12/08/2019, 32.3 mCi of Myoview IV 20 seconds after rapid injection of Lexiscan. Rest injection: Date: 12/08/2019, 11.6 mCi of Myoview IV at rest. The patient had a rapid injection of 0.4 mg of Lexiscan IV over 10 seconds. Imaging was performed by gated tomographic technique. Reason for Lexiscan: dizziness/unsteady/fall risk STRESS TEST DATA: Resting heart rate was 59 BPM. Resting blood pressure was 124/68 mmHg. Peak blood pressure was 122/64 mmHg. Peak heart rate was 80 BPM. TEST TERMINATED DUE TO: Protocol completed FINDINGS: STRESS TEST RESULTS: Resting electrocardiogram revealed normal sinus rhythm with intraventricular conduction delay. There were no significant ischemic ECG changes or dysrhythmias. The patient did not have chest pains/symptoms during procedure. There was a normal recovery phase. IMAGING RESULTS: Image quality was good. Rest and stress tomographic images were reviewed and revealed normal perfusion without evidence of ischemia, myocardial infarction, or left ventricular dilatation with stress. Overall left ventricular systolic function appeared to be normal without regional wall motion abnormalities. Ejection fraction was 56%. TID is 1 and is normal. There were no evidence of attenuation artifact. IMPRESSION: Normal Lexiscan Myoview cardiac perfusion stress test. No evidence of ischemia or myocardial infarction by perfusion imaging. Normal left ventricular systolic function, ejection fraction 56%. No previous study available for comparison. Electronically signed by: LEATHA UREÑA MD Normal [facility] Vital Signs Date Time Vital Sign Value Performing Clinician Facility 03-19-2023 16:16-0500 Diastolic blood pressure 52 mm[Hg] II Curtis Byrd Work Phone: [facility] 03-19-2023 16:16-0500 Heart rate 96 /min II Curtis Byrd Work Phone: [facility] 03-19-2023 16:16-0500 Respiratory rate 16 /min II Curtis Byrd Work Phone: [facility] 03-19-2023 16:16-0500 SaO2% (BldA) [Mass fraction] 100 % II Curtis Byrd Work Phone: [facility] 03-19-2023 16:16-0500 Systolic blood pressure 106 mm[Hg] II Curtis Byrd Work Phone: [facility] 03-19-2023 12:55-0500 Body height 167.64 cm II Curtis Byrd Work Phone: [facility] 03-19-2023 12:55-0500 Body weight 79.37 kg II Curtis Byrd Work Phone: [facility] 03-14-2023 12:00-0500 Body height 167.64 cm Dillon Wilson Other [employer] Other 03-14-2023 12:00-0500 Body mass index (BMI) [Ratio] 28.24 kg/m2 Dillon Wilson Other [employer] Other 03-14-2023 12:00-0500 Body temperature 97.8 [degF] Dillon Wilson Other [employer] Other 03-14-2023 12:00-0500 Body weight 79.38 kg Dillon Wilson Other [employer] Other 03-14-2023 12:00-0500 Diastolic blood pressure 62 mm[Hg] Dillon Wilson Other [employer] Other 03-14-2023 12:00-0500 SaO2% (BldA) [Mass fraction] 98 % Dillon Wilson Other [employer] Other 03-14-2023 12:00-0500 Systolic blood pressure 104 mm[Hg] Dillon Wilson Other [employer] Other 11-22-2022 10:30-0400 Body height 167.64 cm Dillon Wilson Other [employer] Other 11-22-2022 10:30-0400 Body mass index (BMI) [Ratio] 28.24 kg/m2 Dillon Wilson Other [employer] Other 11-22-2022 10:30-0400 Body temperature 97.8 [degF] Dillon Wilson Other [employer] Other 11-22-2022 10:30-0400 Body weight 79.38 kg Dillon Wilson Other [employer] Other 11-22-2022 10:30-0400 Diastolic blood pressure 67 mm[Hg] Dillon Wilson Other [employer] Other 11-22-2022 10:30-0400 SaO2% (BldA) [Mass fraction] 98 % Dillon Wilson Other [employer] Other 11-22-2022 10:30-0400 Systolic blood pressure 102 mm[Hg] Dillon Wilson Other [employer] Other 11-08-2022 15:08-0400 Diastolic blood pressure 77 mm[Hg] II Curtis Carson Work Phone: [facility] 11-08-2022 15:08-0400 Heart rate 98 /min II Curtis Byrd Work Phone: [facility] 11-08-2022 15:08-0400 Respiratory rate 16 /min II Curtis Byrd Work Phone: [facility] 11-08-2022 15:08-0400 SaO2% (BldA) [Mass fraction] 98 % II Curtis Byrd Work Phone: [facility] 11-08-2022 15:08-0400 Systolic blood pressure 129 mm[Hg] II Curtis Byrd Work Phone: [facility] 11-08-2022 13:39-0400 Body height 168.91 cm II Curtis Byrd Work Phone: [facility] 11-08-2022 13:39-0400 Body weight 79.37 kg II Curtis Byrd Work Phone: [facility] 10-04-2022 09:45-0400 Body height 167.64 cm Corinne Rutshavon Other [employer] [facility] Other 10-04-2022 09:45-0400 Body mass index (BMI) [Ratio] 28.24 kg/m2 Corinne Novakshavon Other [employer] Other 10-04-2022 09:45-0400 Body temperature 97.8 [degF] Corinne Shekhar Other [employer] Other 10-04-2022 09:45-0400 Body weight 79.38 kg Corinne Shekhar Other [employer] Other 10-04-2022 09:45-0400 Diastolic blood pressure 62 mm[Hg] Corinne Corrigan Other [employer] Other 10-04-2022 09:45-0400 SaO2% (BldA) [Mass fraction] 97 % Corinne Corrigan Other [email or web address] Other 10-04-2022 09:45-0400 Systolic blood pressure 106 mm[Hg] Corinne Corrigan Other [email or web address] Other 08-20-2022 08:29-0400 Body height 167.64 cm Curtis Casarez Byrd Work Phone: [facility] [employer] 250 DO Work Phone: 08-20-2022 08:29-0400 Body mass index (BMI) [Ratio] 29.54 kg/m2 Curtis Casarez Byrd Work Phone: [facility] 250 DO Work Phone: 08-20-2022 08:29-0400 Body surface area Derived from formula 1.93 m2 Curtis Casarez Byrd Work Phone: [facility] [employer] [facility] 250 DO Work Phone: 08-20-2022 08:29-0400 Body weight 83.01 kg Curtis Casarez Carson Work Phone: [facility] 250 DO Work Phone: 08-20-2022 08:29-0400 Diastolic blood pressure 72 mm[Hg] Curtis Casarez Carson Work Phone: [facility] 250 DO Work Phone: 08-20-2022 08:29-0400 Heart rate 80 /min Curtis Casarez Byrd Work Phone: [facility] 250 DO Work Phone: 08-20-2022 08:29-0400 Systolic blood pressure 120 mm[Hg] Curtis Casarez Byrd Work Phone: [facility] 250 DO Work Phone: 07-31-2022 12:40-0400 Diastolic blood pressure 62 mm[Hg] II Curtis Byrd Work Phone: [facility] 07-31-2022 12:40-0400 Heart rate 86 /min II Curtis Byrd Work Phone: [facility] 07-31-2022 12:40-0400 Respiratory rate 16 /min II Curtis Byrd Work Phone: [facility] 07-31-2022 12:40-0400 SaO2% (BldA) [Mass fraction] 95 % II Curtis Byrd Work Phone: [facility] 07-31-2022 12:40-0400 Systolic blood pressure 128 mm[Hg] II Curtis Byrd Work Phone: [facility] 07-31-2022 09:56-0400 Inhaled oxygen flow rate 3 L/min II Curtis Byrd Work Phone: [facility] 07-31-2022 07:12-0400 Body height 167.64 cm II Curtis Byrd Work Phone: [facility] 07-31-2022 07:12-0400 Body weight 80.73 kg II Curtis Byrd Work Phone: [facility] 07-26-2022 09:00-0400 Body height 167.64 cm Dillon Wilson Other [employer] Other 07-26-2022 09:00-0400 Body mass index (BMI) [Ratio] 28.24 kg/m2 Dillon Wilson Other [employer] Other 07-26-2022 09:00-0400 Body temperature 97.3 [degF] Dillon Wilson Other [employer] Other 07-26-2022 09:00-0400 Body weight 79.38 kg Dillon Wilson Other [employer] Other 07-26-2022 09:00-0400 Diastolic blood pressure 68 mm[Hg] Dillon Wilson Other [employer] Other 07-26-2022 09:00-0400 SaO2% (BldA) [Mass fraction] 97 % Dillon Wilson Other [employer] Other 07-26-2022 09:00-0400 Systolic blood pressure 114 mm[Hg] Dillon Wilson Other [employer] Other 06-26-2022 13:58-0400 Diastolic blood pressure 83 mm[Hg] II Curtis Byrd Work Phone: [facility] 06-26-2022 13:58-0400 Heart rate 99 /min II Curtis Byrd Work Phone: [facility] 06-26-2022 13:58-0400 Respiratory rate 16 /min II Curtis Byrd Work Phone: [facility] 06-26-2022 13:58-0400 SaO2% (BldA) [Mass fraction] 94 % II Curtis Byrd Work Phone: [facility] 06-26-2022 13:58-0400 Systolic blood pressure 114 mm[Hg] II Curtis Byrd Work Phone: [facility] 06-26-2022 13:22-0400 Body height 167.64 cm II Curtis Byrd Work Phone: [facility] 06-26-2022 13:22-0400 Body weight 79.37 kg II Curtis Byrd Work Phone: [facility] 06-19-2022 14:00-0400 Body height 167.64 cm Master Duggan Other [facility] Other 06-19-2022 14:00-0400 Body mass index (BMI) [Ratio] 28.24 kg/m2 Master Duggan Other [employer] Other 06-19-2022 14:00-0400 Body weight 79.38 kg Master Duggan Other [employer] Other 03-29-2022 12:45-0500 Body height 167.64 cm Dillon Wilson Other [employer] Other 03-29-2022 12:45-0500 Body mass index (BMI) [Ratio] 28.24 kg/m2 Dillon Wilson Other [employer] Other 03-29-2022 12:45-0500 Body temperature 97.8 [degF] Dillon Wilson Other [employer] Other 03-29-2022 12:45-0500 Body weight 79.38 kg Dillon Wilson Other [employer] Other 03-29-2022 12:45-0500 Diastolic blood pressure 72 mm[Hg] Dillon Wilson Other [employer] Other 03-29-2022 12:45-0500 SaO2% (BldA) [Mass fraction] 96 % Dillon Wilson Other [employer] Other 03-29-2022 12:45-0500 Systolic blood pressure 116 mm[Hg] Dillon Wilson Other [employer] Other 03-20-2022 11:35-0500 Body height 167.64 cm Ozzie Quintero MD Work Phone: [facility] 250 DO Work Phone: 03-20-2022 11:35-0500 Body mass index (BMI) [Ratio] 28.89 kg/m2 Ozzie Quintero MD Work Phone: [facility] 250 DO Work Phone: 03-20-2022 11:35-0500 Body surface area Derived from formula 1.91 m2 Ozzie Quintero MD Work Phone: [facility] 250 DO Work Phone: 03-20-2022 11:35-0500 Body weight 81.19 kg Ozzie Quintero MD Work Phone: [facility] 250 DO Work Phone: 03-20-2022 11:35-0500 Diastolic blood pressure 72 mm[Hg] Ozzie Quintero MD Work Phone: [facility] 250 DO Work Phone: 03-20-2022 11:35-0500 Heart rate 62 /min Ozzie Quintero MD Work Phone: [facility] 250 DO Work Phone: 03-20-2022 11:35-0500 Systolic blood pressure 128 mm[Hg] Ozzie Quintero MD Work Phone: [facility] 250 DO Work Phone: 03-07-2022 18:10-0500 Respiratory rate 16 /min II Curtis Byrd Work Phone: [facility] 03-07-2022 18:10-0500 SaO2% (BldA) [Mass fraction] 100 % II Curtis Byrd Work Phone: [facility] 03-07-2022 17:51-0500 Body temperature 97.7 [degF] II Curtis Byrd Work Phone: [facility] 03-07-2022 17:51-0500 Diastolic blood pressure 60 mm[Hg] II Curtis Byrd Work Phone: [facility] 03-07-2022 17:51-0500 Heart rate 100 /min II Curtis Byrd Work Phone: [facility] 03-07-2022 17:51-0500 Systolic blood pressure 105 mm[Hg] II Curtis Byrd Work Phone: [facility] 03-06-2022 22:51-0500 Body height 167.64 cm II Curtis Byrd Work Phone: [facility] 03-06-2022 22:51-0500 Body weight 79.38 kg II Curtis Byrd Work Phone: [facility] 02-15-2022 11:45-0500 Body height 167.64 cm Corinne Novakshavon Other [employer] Other 02-15-2022 11:45-0500 Body mass index (BMI) [Ratio] 27.76 kg/m2 Corinne Novakshavon Other [employer] Other 02-15-2022 11:45-0500 Body temperature 97.8 [degF] Corinne Novakshavon Other [employer] Other 02-15-2022 11:45-0500 Body weight 78.02 kg Corinne Shekhar Other [employer] Other 02-15-2022 11:45-0500 Diastolic blood pressure 50 mm[Hg] Corinne Corrigan Other [employer] Other 02-15-2022 11:45-0500 SaO2% (BldA) [Mass fraction] 91 % Corinne Shekhar Other [employer] Other 02-15-2022 11:45-0500 Systolic blood pressure 98 mm[Hg] Corinne Corrigan Other [employer] Other 01-25-2022 11:15-0500 Body height 167.64 cm Dillon Wilson Other [employer] Other 01-25-2022 11:15-0500 Body mass index (BMI) [Ratio] 27.76 kg/m2 Dillon Wilson Other [employer] Other 01-25-2022 11:15-0500 Body temperature 98.7 [degF] Dillon Wilson Other [employer] Other 01-25-2022 11:15-0500 Body weight 78.02 kg Dillon Wilson Other [employer] Other 01-25-2022 11:15-0500 Diastolic blood pressure 68 mm[Hg] Dillon Wilson Other [employer] Other 01-25-2022 11:15-0500 SaO2% (BldA) [Mass fraction] 99 % Dillon Wilson Other [employer] Other 01-25-2022 11:15-0500 Systolic blood pressure 110 mm[Hg] Dillon Wilson Other [employer] Other 09-21-2021 15:38-0400 Diastolic blood pressure 64 mm[Hg] II Curtis Byrd Work Phone: [facility] 09-21-2021 15:38-0400 Heart rate 95 /min II Curtis Byrd Work Phone: [facility] 09-21-2021 15:38-0400 Respiratory rate 17 /min II Curtis Byrd Work Phone: [facility] 09-21-2021 15:38-0400 SaO2% (BldA) [Mass fraction] 98 % II Curtis Byrd Work Phone: [facility] 09-21-2021 15:38-0400 Systolic blood pressure 138 mm[Hg] II Curtis Byrd Work Phone: [facility] 09-21-2021 12:49-0400 Body height 168.91 cm II Curtis Byrd Work Phone: [facility] 09-21-2021 12:49-0400 Body weight 61.23 kg II Curtis Byrd Work Phone: [facility] 08-30-2021 09:30-0400 Body height 167.64 cm Corinne Corrigan Other [employer] Other 08-30-2021 09:30-0400 Body mass index (BMI) [Ratio] 27.76 kg/m2 Corinne Novakshavon Other [employer] Other 08-30-2021 09:30-0400 Body temperature 96.1 [degF] Corinne Shekhar Other [employer] Other 08-30-2021 09:30-0400 Body weight 78.02 kg Corinne Corrigan Other [employer] Other 08-30-2021 09:30-0400 Diastolic blood pressure 60 mm[Hg] Corinne Corrigan Other [employer] Other 08-30-2021 09:30-0400 SaO2% (BldA) [Mass fraction] 97 % Corinne Corrigan Other [employer] Other 08-30-2021 09:30-0400 Systolic blood pressure 92 mm[Hg] Corinne Corrigan Other [employer] Other 08-24-2021 13:30-0400 Body height 167.64 cm Corinne Corrigan Other [employer] Other 08-24-2021 13:30-0400 Body mass index (BMI) [Ratio] 27.76 kg/m2 Corinne Corrigan Other [employer] Other 08-24-2021 13:30-0400 Body temperature 96.4 [degF] Corinne Crorigan Other [employer] Other 08-24-2021 13:30-0400 Body weight 78.02 kg Corinne Corrigan Other [employer] Other 08-24-2021 13:30-0400 Diastolic blood pressure 64 mm[Hg] Corinne Corrigan Other [employer] Other 08-24-2021 13:30-0400 SaO2% (BldA) [Mass fraction] 96 % Corinne Corrigan Other [employer] Other 08-24-2021 13:30-0400 Systolic blood pressure 102 mm[Hg] Corinne Corrigan Other [employer] Other 07-18-2021 12:23-0400 Body height 168.91 cm Ozzie Quintero MD Work Phone: [facility] 250 DO Work Phone: 07-18-2021 12:23-0400 Body mass index (BMI) [Ratio] 28.3 kg/m2 Ozzie Quintero MD Work Phone: [facility] 250 DO Work Phone: 07-18-2021 12:23-0400 Body surface area Derived from formula 1.91 m2 Ozzie Quintero MD Work Phone: [facility] 250 DO Work Phone: 07-18-2021 12:23-0400 Body weight 80.74 kg Ozzie Quintero MD Work Phone: [facility] 250 DO Work Phone: 07-18-2021 12:23-0400 Diastolic blood pressure 74 mm[Hg] Ozzie Quintero MD Work Phone: [facility] 250 DO Work Phone: 07-18-2021 12:23-0400 Heart rate 88 /min Ozzie Quintero MD Work Phone: [facility] 250 DO Work Phone: 07-18-2021 12:23-0400 Systolic blood pressure 114 mm[Hg] Ozzie Quintero MD Work Phone: [facility] 250 DO Work Phone: 06-22-2021 11:45-0400 Body height 167.64 cm Corinne Corrigan Other [employer] Other 06-22-2021 11:45-0400 Body mass index (BMI) [Ratio] 27.76 kg/m2 Corinne Corrigan Other [employer] Other 06-22-2021 11:45-0400 Body weight 78.02 kg Corinne Corrigan Other [employer] Other 06-22-2021 11:45-0400 Diastolic blood pressure 52 mm[Hg] Corinne Corrigan Other [employer] Other 06-22-2021 11:45-0400 Respiratory rate 16 /min Corinne Corrigan Other [employer] Other 06-22-2021 11:45-0400 SaO2% (BldA) [Mass fraction] 98 % Corinne Corrigan Other [employer] Other 06-22-2021 11:45-0400 Systolic blood pressure 100 mm[Hg] Corinne Corrigan Other [employer] Other 06-15-2021 14:00-0400 Body height 167.64 cm Master Duggan Other [employer] Other 06-15-2021 14:00-0400 Body mass index (BMI) [Ratio] 27.6 kg/m2 Master Duggan Other [employer] Other 06-15-2021 14:00-0400 Body weight 77.57 kg Master Duggan Other [employer] Other 04-04-2021 11:18-0500 Body height 168.91 cm Ozzie Quintero MD [facility] Phone: [facility] [employer] 250 DO Work Phone: 04-04-2021 11:18-0500 Body mass index (BMI) [Ratio] 27.5 kg/m2 Ozzie Quintero MD Work Phone: [facility] [employer] 250 DO Work Phone: 04-04-2021 11:18-0500 Body surface area Derived from formula 1.89 m2 Ozzie Quintero MD Work Phone: [facility] 250 DO Work Phone: 04-04-2021 11:18-0500 Body weight 78.47 kg Ozzie Quintero MD Work Phone: [facility] 250 DO Work Phone: 04-04-2021 11:18-0500 Diastolic blood pressure 52 mm[Hg] Ozzie Quintero MD Work Phone: [facility] 250 DO Work Phone: 04-04-2021 11:18-0500 Heart rate 86 /min Ozzie Quintero MD Work Phone: [facility] 250 DO Work Phone: 04-04-2021 11:18-0500 Systolic blood pressure 125 mm[Hg] Ozzie Quintero MD Work Phone: [facility] 250 DO Work Phone: 03-16-2021 12:30-0500 Body height 167.64 cm Dillon Wilson Other [employer] Other 03-16-2021 12:30-0500 Body mass index (BMI) [Ratio] 27.11 kg/m2 Dillon Wilson Other [employer] Other 03-16-2021 12:30-0500 Body temperature 97.9 [degF] Dillon Wilson Other [employer] Other 03-16-2021 12:30-0500 Body weight 76.2 kg Dillon Wilson Other [employer] Other 03-16-2021 12:30-0500 Diastolic blood pressure 60 mm[Hg] Dillon Wilson Other [employer] Other 03-16-2021 12:30-0500 SaO2% (BldA) [Mass fraction] 99 % Dillon Romanoami Other [employer] Other 03-16-2021 12:30-0500 Systolic blood pressure 110 mm[Hg] Dillon Steve Other [employer] Other 02-09-2021 12:00-0500 Body height 167.64 cm Dillon Romanoami Other [employer] Other 02-09-2021 12:00-0500 Body mass index (BMI) [Ratio] 27.11 kg/m2 Dillon Romanoami Other [employer] Other 02-09-2021 12:00-0500 Body temperature 98.1 [degF] Dillon Steve Other [employer] Other 02-09-2021 12:00-0500 Body weight 76.2 kg Dillon Romanoami Other [employer] Other 02-09-2021 12:00-0500 SaO2% (BldA) [Mass fraction] 97 % Dillon Steve Other [employer] Other 01-05-2021 14:24-0500 Body height 168.91 cm Ozzie Quintero MD Work Phone: [facility] 250 DO Work Phone: 01-05-2021 14:24-0500 Body mass index (BMI) [Ratio] 26.87 kg/m2 Ozzie Quintero MD Work Phone: [facility] [employer] 250 DO Work Phone: 01-05-2021 14:24-0500 Body surface area Derived from formula 1.87 m2 Ozzie Quintero MD Work Phone: [facility] 250 DO Work Phone: 01-05-2021 14:24-0500 Body weight 76.66 kg Ozzie Quintero MD Work Phone: [facility] 250 DO Work Phone: 01-05-2021 14:24-0500 Diastolic blood pressure 68 mm[Hg] Ozzie Quintero MD Work Phone: [facility] 250 DO Work Phone: 01-05-2021 14:24-0500 Heart rate 80 /min Ozzie Quintero MD Work Phone: [facility] 250 DO Work Phone: 01-05-2021 14:24-0500 Systolic blood pressure 110 mm[Hg] Ozzie Quintero MD Work Phone: [facility] 250 DO Work Phone: 11-24-2020 12:45-0400 Body height 167.64 cm Dillon Wilson Other [employer] Other 11-24-2020 12:45-0400 Body mass index (BMI) [Ratio] 26.63 kg/m2 Dillon Wilson Other [employer] Other 11-24-2020 12:45-0400 Body weight 74.84 kg Dillon Wilson Other [employer] Other 11-24-2020 12:45-0400 Diastolic blood pressure 62 mm[Hg] Dillon Wilson Other [employer] Other 11-24-2020 12:45-0400 Systolic blood pressure 118 mm[Hg] Dillon Wilson Other [employer] Other Encounters Encounter Date Encounter Type Care Provider Facility Start: 03-28-2023 End: 03-28-2023 ambulatory II Curtis Byrd Work Phone: [facility] Work Phone: Start: 03-28-2023 End: 03-28-2023 Patient encounter procedure II Curtis Byrd Work Phone: [facility] Start: 03-19-2023 End: 03-19-2023 ambulatory Dillon Wilson Facility:[facility] Start: 03-19-2023 Non-patient / Non-visit II Curtis Byrd Work Phone: [facility] Work Phone: Start: 03-14-2023 Office outpatient visit 15 minutes Dillon Wilson [facility] Start: 03-14-2023 End: 03-14-2023 ambulatory Curtis Carson Facility:[facility] Start: 03-14-2023 End: 03-14-2023 ambulatory II Curtis Byrd Work Phone: [facility] Work Phone: Start: 03-14-2023 End: 03-14-2023 Patient encounter procedure II Curtis Byrd Work Phone: [facility] Start: 02-28-2023 End: 02-28-2023 ambulatory CURTIS BYRD Not Available Start: 11-28-2022 End: 11-28-2022 ambulatory Dillon Wilson Other [employer] Other Start: 11-28-2022 Telephone encounter Dillon reyes [facility] Start: 11-22-2022 Office outpatient visit 25 minutes Dillon Wilson [facility] Start: 11-22-2022 End: 11-22-2022 ambulatory Corinne Corrigan Facility:[facility] Start: 11-22-2022 End: 11-22-2022 ambulatory II Curtis Byrd Work Phone: [facility] Other Start: 11-22-2022 End: 11-22-2022 Patient encounter procedure II Curtis Byrd Work Phone: [facility] Start: 11-08-2022 End: 11-08-2022 ambulatory Curtis Byrd Facility:[facility] Start: 11-08-2022 End: 11-08-2022 Admission to same day surgery center II Curtis Byrd Work Phone: [facility]-Interventional Radiology Work Phone: Start: 11-08-2022 End: 11-08-2022 ambulatory II Curtis Byrd Work Phone: [facility] Work Phone: Start: 10-04-2022 End: 10-04-2022 ambulatory Corinne Novakarchiejuliet Other [facility] Other Start: 10-04-2022 Patient encounter procedure Corinne Novakshavon [facility] Start: 08-20-2022 Office outpatient visit 25 minutes Curtis Casarez Byrd Work Phone: [facility] 250 DO Work Phone: Start: 08-20-2022 ambulatory Ozzie Hauser y: Start: 07-31-2022 End: 07-31-2022 ambulatory Dillon Wilson Facility[facility] Start: 07-31-2022 End: 07-31-2022 Admission to same day surgery center II Curtis Byrd Work Phone: [facility]-Interventional Radiology Work Phone: Start: 07-31-2022 End: 07-31-2022 ambulatory II Curtis Byrd Work Phone: [facility] Work Phone: Start: 07-26-2022 Office outpatient visit 25 minutes Dillon Wilson [facility] Start: 07-26-2022 End: 07-26-2022 ambulatory II Curtis Byrd Work Phone: [employer] Other Start: 07-26-2022 End: 07-26-2022 Patient encounter procedure II Curtis Byrd Work Phone: [facility] Start: 07-13-2022 End: 07-13-2022 ambulatory AZIZ BAKHOUS Facility:[facility] Start: 06-26-2022 End: 06-26-2022 ambulatory Dillon Wilson Facility[facility] Start: 06-26-2022 End: 06-26-2022 Admission to same day surgery center II Curtis Byrd Work Phone: [facility]Interventional Radiology Work Phone: Start: 06-25-2022 End: 07-25-2022 ambulatory BRADEN H FAWWAD Facility:[facility] Start: 06-19-2022 End: 06-19-2022 ambulatory Master Duggan Other [employer] Other Start: 06-19-2022 Office outpatient visit 15 minutes Master Duggan [facility] Gastroenterology Start: 06-04-2022 End: 06-04-[address] RAYNA STAPLETON Facility:[facility] Start: 06-01-2022 End: 06-01-2022 ambulatory AZRADHA BAKHOUS Facility:[facility] Start: 05-28-2022 End: 06-22-2022 ambulatory BRADEN H FAWWAD Facility:[facility] Start: 04-25-2022 End: 05-25-2022 ambulatory BRADEN H FAWWAD Facility:[facility] Start: 03-29-2022 End: 03-29-2022 ambulatory Dillon Wilson Other [employer] Other Start: 03-29-2022 Office outpatient visit 10 minutes Dillon Wilson [facility] Vascular Surgery Start: 03-28-2022 End: 04-25-2022 ambulatory BRADEN H FAWWAD Facility:[facility] Start: 03-20-2022 Office outpatient visit 25 minutes Ozzie Quintero MD Work Phone: [facility] 250 DO Work Phone: Start: 03-20-2022 ambulatory Ozzie Quintero Facilit y: Start: 03-08-2022 Rx Renewal Ozzie pinto MD Work Phone: [facility] 250 DO Work Phone: Start: 03-06-2022 End: 03-07-2022 Evaluation and management of inpatient II Curtis Byrd Work Phone: [facility] [place] [facility] Work Phone: Start: 03-06-2022 End: 03-07-2022 observation encounter II Curtis Byrd Work Phone: [facility] Work Phone: Start: 02-26-2022 End: 03-28-2022 ambulatory BRADEN H FAWWAD Facility:[facility] Start: 02-15-2022 End: 02-15-2022 ambulatory Corinne Corrigan Other [facility] Other Start: 02-15-2022 Patient encounter procedure Corinne Corrigan [facility] Start: 01-25-2022 Office outpatient visit 15 minutes Dillon Wilson [facility] Vascular Surgery Start: 01-25-2022 End: 01-25-2022 Patient encounter procedure II Curtis Byrd Work Phone: [facility]trasound [place] Start: 01-25-2022 End: 02-25-2022 ambulatory II Curtis Byrd Work Phone: [facility] Other Start: 12-26-2021 End: 01-24-2022 ambulatory BRADEN H FAWWAD Facility:[facility] Start: 11-26-2021 End: 12-25-2021 ambulatory BRADEN H FAWWAD Facility:[facility] Start: 10-26-2021 End: 11-25-2021 ambulatory BRADEN H FAWWAD Facility:[facility] Start: 09-25-2021 End: 10-25-2021 ambulatory SHAIKH Ivonne FAMinervaWAD Facility:[facility] Start: 09-21-2021 End: 09-21-2021 Admission to same day surgery center II Curtis Byrd Work Phone: [facility]-Interventional Radiology Start: 08-30-2021 End: 08-30-2021 ambulatory Corinne Corrigan Other [employer] Other Start: 08-30-2021 End: 08-30-2021 Patient encounter procedure Corinne Corrigan [facility] Start: 08-29-2021 End: 08-29-2021 ambulatory YOSELYN WOODARD Facility:[facility] Start: 08-28-2021 End: 08-28-[address] STORM Ortiz Facility:[facility] Start: 08-25-2021 End: 09-22-2021 ambulatory SHAIKH Ivonne ATKINSON Facility:[facility] Start: 08-24-2021 End: 08-24-2021 ambulatory Corinne Corrigan Other [employer] Other Start: 08-24-2021 Follow-up encounter Corinne Peterson [facility] Start: 07-18-2021 Office outpatient visit 25 minutes Ozzie Quintero MD Work Phone: [facility] [employer] 250 DO Work Phone: Start: 06-22-2021 End: 06-22-2021 ambulatory Corinne Corrigan Other [employer] Other Start: 06-22-2021 Office outpatient visit 40 minutes Corinne Corrigan [facility] Start: 06-20-2021 Telephone encounter Ozzie Veloz MD Work Phone: [facility] [employer] 250 DO Work Phone: Start: 06-15-2021 End: 06-15-2021 ambulatory Master Duggan Other [email or web address] Other Start: 06-15-2021 Office outpatient visit 15 minutes Master Duggan [facility] Gastroenterology Start: 06-06-2021 Telephone encounter Ozzie Veloz MD Work Phone: [facility] 250 DO Work Phone: Start: 05-30-2021 Patient encounter procedure [id number] NO [id number] WEAVER HAND 1 Work Phone: [facility] 250 DO Work Phone: Start: 04-04-2021 Office outpatient visit 25 minutes Ozzie Quintero MD Work Phone: [facility] 250 DO Work Phone: Start: 04-04-2021 Patient encounter procedure Ozzie Quintero MD Work Phone: [facility] 250 DO Work Phone: Start: 03-16-2021 End: 03-16-2021 ambulatory Dillon Wilson Other [employer] [facility] Other Start: 03-16-2021 Office outpatient visit 15 minutes Dillon Wilson [facility] Vascular Surgery Start: 03-02-2021 Rx Renewal Ozzie pinto MD Work Phone: [facility] 250 DO Work Phone: Start: 02-16-2021 Patient encounter procedure Ozzie Quintero MD Work Phone: [facility] 250 DO Work Phone: Start: 02-09-2021 End: 02-09-2021 ambulatory Dillon Wilson Other [facility] Other Start: 02-09-2021 Office outpatient visit 25 minutes Dillon Wilson [facility] Vascular Surgery Start: 01-27-2021 Chart Update Ozzie pinto MD Work Phone: [facility] 250 DO Work Phone: Start: 01-26-2021 [facility], Provider: Ozzie Quintero, Status: Pen, Time: 2:00 PM Ozzie Quintero MD Work Phone: [facility] 250 DO Work Phone: Start: 01-25-2021 Chart Update Ozzie pinto MD Work Phone: [facility] 250 DO Work Phone: Start: 01-05-2021 Office outpatient visit 25 minutes Ozzie Quintero MD Work Phone: [facility] 250 DO Work Phone: Start: 01-05-2021 Patient encounter procedure Ozzie Quintero MD Work Phone: [facility] 250 DO Work Phone: Start: 11-24-2020 Office outpatient visit 25 minutes Dillon HICKS [facility] Procedures Date Procedure Procedure Detail Performing Clinician Start: 03-28-2023 Ankle brachial press ure index II Curtis Byrd Work Phone: Start: 03-28-2023 Duplex scan of lower limb arteries II Curtis Byrd Work Phone: Start: 03-14-2023 Ultrasonography of arteriovenous fistula II Curtis Byrd Work Phone: Start: 11-22-2022 Ankle brachial press ure index II Curtis Byrd Work Phone: Start: 11-22-2022 Duplex scan of lower limb arteries II Curtis Byrd Work Phone: Start: 11-08-2022 IR Fistulogram/TLA S tent (Left) II Curtis Byrd Work Phone: Start: 07-31-2022 IR Fistulogram/TLA S tent (Left) II Curtis Byrd Work Phone: Start: 07-31-2022 Lower limb angiography II Curtis Byrd Work Phone: Start: 07-26-2022 Duplex scan of lower limb arteries II Curtis Byrd Work Phone: Start: 06-26-2022 IR Fistulogram/TLA S tent (Left) II Curtis Byrd Work Phone: Start: 03-07-2022 IR Fistulogram/TLA S tent (Left) II Curtis Byrd Work Phone: Start: 01-25-2022 Duplex scan of lower limb arteries II Curtis Byrd Work Phone: Start: 01-25-2022 Ankle brachial press ure index II Curtis Byrd Work Phone: Start: 09-21-2021 IR Fistulogram/TLA S tent (Left) II Curtis Byrd Work Phone: Start: 08-30-2021 Ultrasonography of arteriovenous fistula II Curtis Byrd Work Phone: Start: 07-30-2019 Echocardiography Appendectomy Ozzie Quintero MD Work Phone: Cholecystectomy Ozzie johnston MD Work Phone: Creation of graft fi stula for dialysis Ozzie Quintero MD Work Phone: Comment on above: left side; Hysterectomy Ozzie Quintero MD Work Phone: Comment on above: partial; Intraoperative trans luminal femoral-popliteal angioplasty Curtis Byrd Work Phone: Leg repair Ozzie Quintero MD Work Phone: Revision of vascular procedure Ozzie Quintero MD Work Phone: Tonsillectomy Ozzie pinto MD Work Phone: Total colonoscopy Ozzie Veloz MD Work Phone: Comment on above: August2019; Vascular surgery procedure Minerva Quintero MD Work Phone: Plan of Treatment Date Care Activity Detail Author Start: 04-30-2023 FUV, Provider: Ozzie Quintero, Status: Pen, Time: 9:20 AM FUV, Provider: Ozzie Quintero, Status: Pen, Time: 9:20 AM [facility] 250 DO Work Phone: Start: 03-19-2023 [facility] Start: 03-14-2023 Ultrasonography of arteriovenous fistula US AV Fistula [facility] Start: 03-14-2023 US AV fistula [facility] Start: 11-08-2022 [facility] Start: 07-31-2022 [facility] Start: 06-26-2022 [facility] Start: 03-20-2022 FUV, Provider: Ozzie Quintero, Status: Pen, Time: 11:20 AM FUV, Provider: Ozzie Quintero, Status: Pen, Time: 11:20 AM [facility] 250 DO Work Phone: Start: 03-07-2022 [facility] Start: 10-26-2021 Ankle brachial pressure index US ankle/arm indices [facility] Start: 10-26-2021 Patient encounter procedure Registered Clinical [facility] [place] Start: 09-21-2021 [facility] Work Phone: Start: 07-18-2021 FUV, Provider: Ozzie Quintero, Status: Pen, Time: 11:30 AM FUV, Provider: Ozzie Quintero, Status: Pen, Time: 11:30 AM [facility] 250 DO Work Phone: Start: 05-30-2021 HOLTER MON, Provider: BRENT RIGGS [employer]AVER [employer] 1,[id number], Status: Pen, Time: 2:30 PM HOLTER MON, Provider: BRENT RIGGS WEAVER HAND 1,[id number], Status: Pen, Time: 2:30 PM [facility] 250 DO Work Phone: Start: 04-04-2021 FUV, Provider: Ozzie Quintero, Status: Pen, Time: 10:50 AM FUV, Provider: Ozzie Quintero, Status: Pen, Time: 10:50 AM [facility] 250 DO Work Phone: Start: 01-26-2021 [facility], Provider: Ozzie Quintero, Status: Pen, Time: 2:00 PM [facility], Provider: Ozzie Quintero, Status: Pen, Time: 2:00 PM [facility] 250 DO Work Phone: Patient Education [facility] Work Phone: Patient referral [facility] Work Phone: Immunizations Immunization Date Immunization Notes Care Provider Fa [facility] 03-31-2022 Pfizer COVID-19 Vac Bivalent 30 MCG/0.3ML Intramuscular Suspension Curtis Byrd Work Phone: [facility] 250 DO Work Phone: 07-15-2021 Comirnaty 30 MCG/0.3 ML Intramuscular Suspension Ozzie Quintero MD Work Phone: [facility] 250 DO Work Phone: 07-15-2021 Pfizer-BioNTech COVI D-19 Vacc 30 MCG/0.3ML Intramuscular Suspension Ozzie Quintero MD Work Phone: [facility] Comment on above: Series: 01-07-2021 Pfizer-BioNTech COVI D-19 Vacc 30 MCG/0.3ML Intramuscular Suspension Ozzie Quintero MD Work Phone: [facility] Comment on above: Series: 05-11-2020 Pfizer-BioNTech COVI D-19 Vacc 30 MCG/0.3ML Intramuscular Suspension Ozzie Quintero MD Work Phone: [facility] 04-20-2020 Pfizer-BioNTech COVI D-19 Vacc 30 MCG/0.3ML Intramuscular Suspension Ozzie Quintero MD Work Phone: [facility] 05-08-2019 pneumococcal polysaccharide vaccine, 23 valent Ozzie Quintero MD Work Phone: [facility] 250 DO Work Phone: 02-25-2019 pneumococcal conjuga te vaccine, 13 kelli Quintero MD Work Phone: -[facility] Keke DO Work Phone: Payers Date Payer Category Payer Medicare [id number] 2.1 [id number] 1959 Unknown [id number] [id number] 1950 Unknown [id number] 2.16.84 0.1.607034.3.579.2.593 1950 Unknown [id number] 2.16.84 0.1.881668.3.579.2.593 1950 Unknown [id number] 2.16.84 0.1.551434.3.579.2.593 1952 Unknown [id number] 2.16.84 0.1.287655.3.579.2.593 1952 Unknown [id number] 2.16.84 0.1.472266.3.579.2.593 1952 Unknown [id number] 2.16.84 0.1.254965.3.579.2.593 1952 Unknown [id number] 2.16.84 0.1.668184.3.579.2.593 1952 Unknown [id number] 2.16.84 0.1.353185.3.579.2.593 1952 Unknown [id number] 2.16.84 0.1.412334.3.579.2.593 1952 Unknown [id number] 2.16.84 0.1.030106.3.579.2.593 1952 Unknown [id number] 2.16.84 0.1.121477.3.579.2.593 1952 Unknown [id number] 2.16.84 0.1.360837.3.579.2.593 1952 Unknown [id number] 2.16.84 0.1.379395.3.579.2.593 1952 Unknown [id number] 2.16.84 0.1.684893.3.579.2.593 1952 Unknown [id number] 2.16.84 0.1.281552.3.579.2.593 1952 Unknown [id number] 2.16.84 0.1.738257.3.579.2.593 1952 Unknown [id number] 2.16. 840.1.681227.3.579.2.356 1952 Unknown [id number] 2.16. 840.1.537290.3.579.2.356 1950 Unknown [id number] 2.16.840 .1.573860.3.579.2.1259 Medicaid Medicaid [id number] 18 [id number] Self-pay Self Pay [id number] Unknown Social History Date Type Detail Facility No alcohol use No alcohol use [facility] 250 DO Work Phone: Comment on above: Coffee 1 cup daily; quit 2000; Sex Assigned At Sex Assigned At [facility] Other Start: 09-21-2021 End: 07-03-2022 Tobacco smoking status MAIS Ex-smoker (finding) [facility] Start: 1950 Sex Assigned At Female F [facility] Medical Equipment Procedure Code Equipment Code Equipment Origin al Text Equipment Identifier Dates Fluoroscopic guidance for insertion of tunnelled dialysis catheter [id number] FDA Start: 09-08-2019 Fluoroscopic guidance for insertion of tunnelled dialysis catheter [id number] FDA Start: 09-08-2019 Fluoroscopic guidance for insertion of tunnelled dialysis catheter [id number] FDA Start: 09-08-2019 Fluoroscopic guidance for insertion of tunnelled dialysis catheter [id number] FDA Start: 09-08-2019 Fluoroscopic guidance for insertion of tunnelled dialysis catheter [id number] FDA Start: 09-08-2019 Fluoroscopic guidance for insertion of tunnelled dialysis catheter [id number] FDA Start: 09-08-2019 Fluoroscopic guidance for insertion of tunnelled dialysis catheter [id number] FDA Start: 09-08-2019 Fluoroscopic guidance for insertion of tunnelled dialysis catheter [id number] FDA Start: 09-08-2019 Fluoroscopic guidance for insertion of tunnelled dialysis catheter [id number] FDA Start: 09-08-2019 Fistulogram Non-neurovascula r embolization coil [id number] FDA Start: 06-23-2020 Fistulogram Non-neurovascula r embolization coil [id number] FDA Start: 06-23-2020 Fistulogram Non-neurovascula r embolization coil [id number] FDA Start: 06-23-2020 Fistulogram Non-neurovascula r embolization coil [id number] FDA Start: 06-23-2020 Capsule endoscopy, for patency of lumen evaluation Video capsule endoscopy system [id number] FDA Start: 10-08-2019 Capsule endoscopy, for patency of lumen evaluation Video capsule endoscopy system ()[id number] FDA Start: 06-05-2021 Synthetic vascul ar graft ()[id number] FDA Start: 03-29-2020 Cardiovascular p atch, animal-derived ()[id number] FDA Start: 03-29-2020 Goals Date Patient Goal Desired Activity /State Functional Status Date Assessment Result Facility 03-07-2022 Functional status Patient at Baseline [facility] Work Phone: Mental Status Date Assessment Result Facility 03-07-2022 Cognitive function Cognitive Sta tus Patient at Baseline [facility] Work Phone: Clinical Notes 01-24-2007 to 03-14-2023 Note Date & Type Note Facility 03-14-2023 Evaluation note Encounter Date Diagnosis Assessment Notes Feb, End stage renal disease (ICD-10 - N18.6) Feb, AV fistula (ICD-10 - I77.0) Feb, Dependence on renal dialysis (ICD-10 - Z99.2) Feb, Arteriovenous fistula stenosis, 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 She is very familiar with this procedure. Will schedule this in the near future. The meantime she can continue use the AV fistula. [employer] Other 09-28-2023 Evaluation note* Encounter Date Diagnosis Assessment Notes Treatment Notes Treatment Clinical Notes Oct, ESRD needing dialysis (ICD-10 - N18.6) Oct, Peripheral arterial occlusive disease (ICD-10 - I77.9) I did review the patient's surveillance studies. The graft of his left lower extremity graft is patent and her ARELY is not calculable due to compressed and calcified vessels but her waveforms are strongly biphasic in the left lower extremity. Right lower extremity ABIs 0.39 with monophasic waveforms. However the patient is not having any symptoms in the left and the right lower extremity at this time. Attending that she does have critical limb ischemia in the right lower extremity but she remains asymptomatic she denies any rest pain or tissue loss. Therefore I will ignore the results of the right lower extremity on purpose today. I will try to contact her sommelier in the access center. I think this should be using ultrasound guidance and accessing her fistula. I will try to pass this information along to them I do believe they have an ultrasound machine and she would be a good candidate for consistent ultrasound access. We have had many problems with her fistula since its inception and I think this would decrease the incidence of failure and/or dysfunction. [employer] Other 09-14-[facility]23 [facility]* Encounter Date Diagnosis Assessment Notes Treatment Notes Treatment Clinical Notes Sep, PAD (peripheral artery disease) (ICD-10 - I73.9) Patient previously had left lower extremity intervention. She is stable with no symptoms of claudication or ischemic rest pain. She has no tissue loss. She has not had any recent noninvasive studies, we will get these scheduled and bring her back to the office for follow-up in the near future to ensure patent bypass. Sep, AV fistula (ICD-10 - I77.0) This patient's fistula is functioning well after recent intervention. Will continue to follow her along as needed in the future for maintenance of her access. [employer] Other 06-06-2023 Procedure [facility]-06-2023 Procedure [facility]01[facility]2023 Evaluation note* Encounter Date Diagnosis Assessment Notes Treatment Notes Treatment Clinical Notes Jul, PAD (peripheral artery disease) (ICD-10 - I73.9) I did review the graft flow duplex scan today. This patient's flow velocities are half what they were at the last surveillance study. I am concerned about her low flow state. It is likely due to outflow obstruction. This is a threatened bypass. This patient is at risk for limb loss. We will need to schedule an intervention for bypass salvage. We will schedule this next week as well. Patient understands agrees to plan all her questions were addressed. Jul, Arteriovenous fistula occlusion, initial encounter (ICD-10 - T82.898A) I am concerned this patient has a stenoses of her fistula leading to decreased flow rates. This is happened previously. She was successfully angioplastied in the [employer]. We will need to schedule this next week for fistula salvage. She is at risk of losing the fistula. She understands agrees with plan all her questions were addressed. She is very familiar with this procedure. We will plan this next week. She still is able to dialyze albeit at lower rates. [employer] Other 04-25-2023 Evaluation note* Encounter Date Diagnosis Assessment Notes Treatment Notes Treatment Clinical Notes May, Iron deficiency anemia (ICD-10 - D50.9) Patient had recent labs at the dialysis center in [facility]. Results will be requested Patient states her results have been good when checked at the time of dialysis & she is not taking iron therapy at this time. Retrun visit here prn [employer] Other 02-02-2023 Evaluation note* Encounter Date Diagnosis Assessment Notes Treatment Notes Treatment Clinical Notes Mar, AV fistula (ICD-10 - I77.0) Patient's right arm AV fistula is working very well. I will see her as needed in the future. Patient understands agrees the plan all her questions were addressed. [employer] Other 01-11-2023 Discharge summary Author Corinne Cor[facility] March 07, 2022 4:33pm Note Date/Time March 07, 2022 4 :33pm [facility] [address] [place] [address] Discharge Summary Signed Patient: Edita Duggan MR# : [id number] : 1950 Acct:[id number] Age/Sex: 71 / F Adm Date: 3 Loc: Room: [address] [place] [address]: Dillon Wilson MD Copies to: MD Corinne Yun II, CANDY Wilson MD~ Providers Date of Discharge: 03/07/22 Discharging Provider: Dillon Wilson Additional Discharging Provider: Corinne Corrigan Primary Care Provider: Curtis Byrd Discharge Diagnosis (1) Dialysis AV fistula malfunction: Final Diagnosis Final Discharge Diagnosis: same Summary Hospital Course Hospital course: Patient underwent fistulogram with cephalic venoplasty this morning for dysfunctional left upper extremity AV fistula. She got along fine and she had no postoperative complications. she will get her hemodialysis treatment and then be ready for discharge home. Condition Condition at Discharge: Stable Time Spent with Patient Time spent providing/coordinating discharge services (# min): 15 Surgeries and Procedures Operation Date: 03/07/22 12:35 Actual Procedures p IR Retrograde Fistulogram Left Arm(Left) - Dillon Wilson MD Diagnostic Studies Completed and Pending Studies Pending studies at discharge: 03/08/22 05:00 Prothrombin Time INR IN AM 03/09/22 05:00 Prothrombin Time INR IN AM 03/10/22 05:00 Prothrombin Time INR IN AM 03/11/22 05:00 Prothrombin Time INR IN AM 03/12/22 05:00 Prothrombin Time INR IN AM 03/13/22 05:00 Prothrombin Time INR IN AM Labs on day of discharge: 03/07/22 08:56: PT 21.9 H, INR 1.9 03/07/22 00:35: PT 22.4 H, INR 1.9 Exam Physical Exam Vital Signs: Temp Pulse Resp BP Pulse Ox O2 Del Method 97.7 F 86 18 113/65 100 Room Air 03/07/22 14:15 03/07/22 16:30 03/07/22 14:15 03/07/22 16:30 03/07/22 14:15 03/07/22 14:15 Const General: cooperative, comfortable and no acute distress Discharge Plan Discharge Plan Patient Disposition: Home Activity: No Activity Restriction Diet: Renal Instructions: Fistulogram, Placement of a Vascular Access for Dialysis Prescriptions: Continued bumetanide 1 mg tablet 1 mg PO QHS Rx Instructions: TAKE 1 TABLET BY MOUTH TWICE DAILY sevelamer carbonate 800 mg tablet 800 mg PO DIRECTED Patient Comments: TAKE 1 TABLET BY MOUTH THREE TIMES DAILY WITH MEALS Rx Instructions: TWO (2)WITH EVERY MEAL AND ONE (1) WITH SNACKS aspirin 81 mg tablet,delayed release (DR/EC) 81 mg PO DAILY pantoprazole [Protonix] 20 mg tablet,delayed release (DR/EC) 20 mg PO QAM rosuvastatin 10 mg Tablet 10 mg PO DAILY Aranesp (in polysorbate) 40 mcg/0.4 mL Syringe 40 mcg subcut QWEEK docusate sodium [Colace] 100 mg Capsule 100 mg PO BID PRN (Reason: Constipation) biotin 5,000 mcg Tablet,Disintegrating 10,000 mcg PO DAILY B complex-vitamin C-folic acid 0.8 mg Tablet 1 tab PO DAILY warfarin 2 mg tablet 2 mg PO DAILY Patient Comments: TAKE 1 TABLET BY MOUTH DAILY DIRECTED 2mg all days except 1mg on Fridays polyethylene glycol 3350 [Miralax] 17 gram Powder In Packet 17 g PO DAILY midodrine 5 mg Tablet 5 mg PO DAILY Rx Instructions: do not give last dose of day after 6PM or within 4 hrs of bedtime at dialysis as needed. paricalcitol [Zemplar] 5 mcg/mL Solution 10 mcg IV Q2D acetaminophen 650 mg Tablet Extended Release 650 mg PO Q12H PRN (Reason: Pain) cinacalcet 30 mg Tablet 30 mg PO 3XW diclofenac sodium 2 % Solution In Packet 1 packet TOPICAL Q12H Rx Instructions: apply to single affected knee Follow Up: Dillon Wilson MD [Active Staff] - (Please follow-up in the office in 2 to 4 weeks. Please call with any questions or concerns.) Documented By: Corinne Corrigan APRN 03/07/22 1 632 Signed By: <Electronically signed by CANDY Corrigan> 03/07/22 1633 [facility] Work Phone: 1(457) 201-719201-11-2023 Progress note Author Dillon Wilson [facility] March 08, 2022 2:46pm Note Date/Time March 07, 2022 2 :58pm [facility] [address] [place] [address] Vascular Surgery Progress Note Signed Patient: Edita Duggan MR# : [id number] : 1950 Acct:[id number] Age/Sex: 71 / F Adm Date: 3 Loc: Room: [address] [place] [address] Type: DIS INOo Attending Dr: Dillon Wilson MD Copies to: ~ Date of Service: 03/06/2022 Subjective Subjective Interval history: This patient requires long-term hemodialysis and has a dysfunctional AV fistula. She will require fistulogram and intervention for inflow stenosis. We will puther on the schedule for tomorrow. She will be admitted overnight for fistulogram in the morning followed by dialysis and then be able to be discharged home after that. Exam Physical Exam Vital Signs: Temp Pulse Resp BP Pulse Ox O2 Del Method 97.7 F 73 18 113/70 100 Room Air 03/07/22 14:15 03/07/22 14:30 03/07/22 14:15 03/07/22 14:30 03/07/22 14:15 03/07/22 14:15 Narrative: 71-year-old female, no acute distress. She is alert and oriented x3. No shortness of breath with conversation. AV fistula with good thrill and bruit. By physical exam, this patients AV fistula has inflow stenosis that willneed repaired. She has good hand function, adequate correction officer head strength, and good distal pulses. Const General: cooperative, comfortable and no acute distress Objective Labs Other Labs: Laboratory Results - last 24 hr 03/07/22 03/07/22 00:35 08:56 PT 22.4 H 21.9 H INR 1.9 1.9 A&P - Vascular Assessment/Plan (1) Dialysis AV fistula malfunction: This patient has a dysfunctional AV fistula with inflow stenosis which needs repaired. She has not receiving adequate hemodialysis due to low blood flows. She is scheduled for fistulogram and intervention in the morning and will receive hemodialysis prior to her discharge home tomorrow. Code(s): T82.590A - Other mechanical complication of surgically created arteriovenous fistula, initial encounter Status: Acute Time Spent with Patient Time Spent With Patient (min): 20 Documented By: Dillon Wilson MD 03/07/22 1454 Signed By: <Electronically signed by Dillon Wilson MD> 03/08/22 1446 <Electronically signed by CANDY Corrigan> 03/07/22 1458 [facility] Work Phone: 1(945) 381-980001-11-2023 [facility] note* Encounter Date Diagnosis Assessment Notes Treatment Notes Treatment Clinical Notes Jan, AV fistula (ICD-10 - I77.0) By physical examination this patient has presence of inflow stenosis. She will require fistulogram and possible intervention for correction of the inflow stenosis. Procedure, risk, benefits were discussed at length and all her questions were addressed. Consent was obtained. We will get this on the schedule in the near future. She verbalizes understanding of all discussion, agrees with this plan, denies any questions. Jan, End stage renal disease (ICD-10 - N18.6) Jan, Dependence on renal dialysis (ICD-10 - Z99.2) [employer] Other 12-01-2022 Evaluation note* Encounter Date Diagnosis Assessment Notes Treatment Notes Treatment Clinical Notes Jan, AV fistula (ICD-10 - I77.0) Jan, PAD (peripheral artery disease) (ICD-10 - I73.9) I did review the graft flow scan with the patient today. Everything looks good I am not concerned about the bypass pressure looks good we will see her back in 6 months with repeat surveillance studies of the left lower extremity all of her questions were addressed she understands agrees the plan she is asked to call with any questions or concerns in the meantime. [employer] Other 07-28-2022 [facility]* Encounter Date Diagnosis Assessment Notes Treatment Notes Treatment Clinical Notes Aug, End stage renal disease (ICD-10 - N18.6) This patient has had 2 emergency room visits for her bleeding fistula on Saturday. Recommend number and reviewed recent fistulogram results from November which looked good with no evidence of blockage or stenosis. We obtained an ultrasound of her fistula while she is here in the office today which does show an area of decreased blood flow about the mid fistula region otherwise it is of good size and turgor. We will schedule her for fistulogram to further evaluate and possible intervention for any degree of stenosis identified. This patient is on Coumadin for her A. fib which will inevitably prolong her bleed times. She is cautioned not to let anyone put a tourniquet over this fistula again as this could compromise her fistula function. Bleeding should be able to be controlled with slight manual pressure until the bleeding stops. Patient states understanding of this. She verbalizes understanding of all discussion, agrees with this plan, denies any questions. Aug, Dependence on renal dialysis (ICD-10 - Z99.2) [employer] Other 06-30-2022 Evaluation note* Encounter Date Diagnosis Assessment Notes Treatment Notes Treatment Clinical Notes Jul, PAD (peripheral artery disease) (ICD-10 - I73.9) This patient has done well after revascularization of the left lower extremity. She denies any symptoms of claudication or ischemic rest pain. She has no open sores or ulcerations. She has an easily palpable left DP pulse. She is on good medical therapy with use of aspirin and statin medications daily. Unfortunately, she did not get her postprocedure ABIs completed prior to today's appointment. We will get those ordered and have her back in the near future to discuss those results. We will get ABIs of bilateral lower extremities as she does have nonpalpable right pedal pulses. She is asymptomatic with no symptoms of claudication or ischemic rest pain. She has no open sores or ulcers on the right foot either. She knows to call us in the meantime with any issues. She verbalizes understanding of all discussion, agrees with this plan, denies any questions. [employer] Other 04-28-2022 Evaluation note* Encounter Date Diagnosis Assessment Notes Treatment Notes Treatment Clinical Notes May, Anticoagulated (ICD-10 - Z79.01) May, Renal failure (ICD-1 0 - N19) May, Peripheral arterial occlusive disease (ICD-10 - I77.9) May, End stage renal disease (ICD-10 - N18.6) May, Traumatic hematoma o f left upper arm, initial encounter (ICD-10 - S40.022A) May, Contusion of left upper arm, initial encounter (ICD-10 - S40.022A) May, Mechanical complication of bypass graft, initial encounter (ICD-10 - T82.398A) This patient is a lot going on. It seems as if she can still use the access in left upper extremity for now. However there is any more incidence of contusion or bleeding or hematoma then we will have to convert her to a catheter for a left arm fistula holiday and break from dialysis. In the meantime I suggested elevation with ice. With regards to her left lower extremity bypass graft we did route review the graft duplex surveillance studies today. She has velocities over 400 cm/s in the proximal portion of the bypass graft near the left common femoral artery. This indicates impending graft failure. We did previously balloon angioplasty of her left common femoral artery with good result. I suspect she has recurrent stenoses in the left common femoral artery. We will schedule her to address this problem in order to prevent graft thrombosis. She is at risk for amputation if the graft occludes. She understands and wishes to proceed all her questions were answered we will schedule this for soon as possible. She will need to hold her Coumadin for about for 5 days. 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 We were able to successfully treat these stenoses percutaneously. Today's noninvasive arterial studies and surveillance studies look much better. The waveform is much improved. The graft is no longer threatened. We will see her back in 3 months for repeat graft surveillance studies. The patient understands agrees the plan. [employer] Other 12-21-2021 NoteHNO ID: [id number] Author: RT Freddy(R) Service: Radiology Author Type: Technologist Type: Progress Notes Filed: 02/14/2021 11:27 AM Note Text: Radiology Service Progress Note PATIENT NAME: Edita Duggan DATE OF SERVICE: February 14, 2021 TIME: 11:27 AM PATIENT IDENTITY VERIFICATION COMPLETED USING TWO (2) IDENTIFIERS: Name and Date of confirmed by patient verbally and Name and Date of confirmed by identification band. FALL SCREENING: Has the patient had 2 falls in the last year or 1 fall with injury or currently using an Ambulatory Assistive Device (Walker, Cane, Wheelchair, Crutches, etc.)? No PATIENT GENDER DATA: Female. status: : No status: NO. PATIENT RELEVANT IMPLANT DATA REVIEWED: Yes RADIOLOGY DEPARTMENT: CT; Exam(s) Completed: Abdomen/Pelvis PERIPHERAL IV DATA: Not applicable SIGNED BY: RT Freddy(R) February 14, 2021 11:27 [facility]12-21-2021 NoteHNO ID: [id number] Author: Mary Rivers MD Service: ? Author Type: Physician Type: Progress Notes Filed: 02/14/2021 2:10 PM Note Text: [facility] [place] [facility] Transplant Evaluation CC: Patient is a 70 year old female here for transplant candidacy evaluation. Reason for visit: here for evaluation to be a Kidney Transplant recipient. Referred by: Rayna Stapleton MD [address] [place] [address] I will communicate with the referring provider by letter and/or shared electronic medical record. 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 Patient reports renal biopsy at [facility], will obtain pathology . Patient has been on dialysis since August 2019. Other significant history includes: ? Former smoker, quit 20 years ago. 30 pack year. Will need a CT chest ? Anemia of chronic kidney disease ? Secondary hyperparathyroidism ? Hypertension ? paroxysmal atrial fibrillation status post cardioversion, patient is on Eliquis ? L leg nerve damage ? Left leg bypass, at [facility], Op-report requested. Patient reports scheduled for angiogram of L leg on 02/28/21 ? 2 pregnancies. Denies miscarriage ? cholecystectomy ? Hysterectomy, KASSIDY ? Patient denies stroke, cancer, PA, or blood clot. ACCESS: L AV fistula Patient presents in a wheelchair for long distances, she reports that she does not use assisted devices at home but when out and about uses a cane for balance related to L leg nerve damage. She also helps an extended family member (elderly woman, 89) with her ADLs. On dialysis since 2019 Significant peripheral vascular disease, has required bypass LLE, needs further intervention On eliquis for paroxysmal A fib Prior transplant: No CKD: Yes: Cause of CKD: HTN secondary FSGS Hemodialysis, Start date: 08/2019 Living Donors: No Residual UO: 3 times a week totaling 1/2 cup DM: No PAST MEDICAL HISTORY Diagnosis Date - Anemia due to chronic kidney disease - ESRD (end stage renal disease) (HCC) - Former smoker - FSGS (focal segmental glomerulosclerosis) - HTN (hypertension) - Hyperparathyroidism (HCC) secondary to renal disease - Paroxysmal A-fib (HCC) PAST SURGICAL HISTORY Procedure Laterality Date - AV FISTULA PLACEMENT HX - REMOVAL GALLBLADDER - TOTAL ABDOM HYSTERECTOMY Current Outpatient Medications Medication Sig - amiodarone (PACERONE) 200 mg tablet Take 400 mg by mouth once daily. - Darbepoetin Herbie In Polysorbat (ARANESP, POLYSORBATE,) 25 mcg/mL injection Inject 25 mcg subcutaneously every other week. - aspirin, enteric coated (ASPIR-81) 81 mg EC tablet Take 81 mg by mouth once daily. - BIOTIN 10,000 TABLET once daily. - bumetanide (BUMEX) 1 mg tablet Take 1 mg by mouth once daily. - docusate sodium (COLACE) 100 mg capsule Take 100 mg by mouth twice daily. - diclofenac sodium/capsaicin (DICLOFENAC-CAPSAICIN TOPICAL) Apply to affected area as needed. - apixaban (ELIQUIS) 2.5 mg tab tab(s) Take by mouth twice daily. - lidocaine (LMX) 4 % cream Apply to affected area as needed. - polyethylene glycol 3350 (MIRALAX) 17 gram/dose powder Take by mouth once daily. Dissolve dose in 4 - 8 ounces of liquid and take as directed. - pantoprazole DR (PROTONIX) 20 mg tablet Take 20 mg by mouth once daily. - rosuvastatin 10 mg cpSP Take 10 mg by mouth once daily. - sevelamer carbonate (RENVELA) 800 mg tablet Take 800 mg by mouth three times daily with meals. - acetaminophen (TYLENOL) 325 mg tablet Take 650 mg by mouth every 6 hours as needed. - Paricalcitol (ZEMPLAR) 2 mcg/mL injection Inject intravenously 3 Times weekly with dialysis. No current facility-administered medications for this visit. FAMILY HISTORY Problem Relation Age of Onset - Heart Attack Father - Diabetes Father - Thyroid Cancer Sister - Diabetes Brother No family status information on file. Social History Tobacco Use - Smoking status: Former Smoker Packs/day: 1.50 Years: 30.00 Pack years: 45.00 Quit date: 2000 Years since quittin.9 - Smokeless tobacco: Not on file Substance Use Topics - Alcohol use: Not on file - Drug use: Not on file Pre-transplant testing: Cardiac: Per patient recent cardiac work up at [facility], records requested. PAP Test: Not applicable, [facility]. Mammogram: Completed on 06/30/20, results FINDINGS: DIAGNOSTIC CATEGORY 2--BENIGN FINDING: RIGHT BREAST: No significant suspicious finding. scattered benign-appearing calcifications are present. scattered benign-appearing lymph nodes are present. No significant change has occurred. LEFT BREAST: No significant suspicious finding. Scattered benign-appearing calcifications are present. No significant change has occurred, RECOMMENDATIONS: ROUTINE MAMMOGRAM AND CLINICAL EVALUATION IN 12 MONTHS Colonoscopy: Completed in 09/2019, results Requested fro (more content not included)...[facility]12-21-2021 NoteHNO ID: [id number] Author: Yassine La RN Service: ? Author Type: Registered Nurse Type: Progress Notes Filed: 02/14/2021 10:09 AM Note Text: PRE-TRANSPLANT PATIENT EDUCATION NOTE Type of Transplant: Kidney Informed Consent for Evaluation signed: Yes Multiple Listing Form signed: Yes READINESS TO LEARN: Cognitive Ability: Alert and oriented Motivation to Learn: Interested Family Support: High - Very involved in pt care Instruction Provided to: Patient and Son Patient Learns Best by: Multiple Methods Factors Affecting Learning: None Physical Limitations Affecting Learning: None LEARNING RESPONSE: Diagnosis: ESRD Education Topics/Teaching Points: -Discussed living donor evaluation and approval process. -Discussed the evaluation and listing process. -Discussed the different types of donors (KDPI scoring, DCD, High Risk). -Explained EPTS scoring and how it is calculated. -Explained the surgical procedure and potential complications, surgeons, hospital stay at the time of transplant. -Explained lifetime immunosuppression therapy and frequency of blood draws/labs post-op and post-op course of treatment. -Reviewed National and [facility] outcomes from the most recent SRTR center-specific report; a copy of the program summary was given to the patient. -Explained that if the transplant is not performed at a Medicare-approved transplant center it could affect the ability to have immunosuppressive medications paid under Medicare Part B. Supplemental Material: -Pre-Transplant Patient Education Binder -UNOS: Questions AND Answers for Transplant Candidates about Multiple Listing and Waiting Time Transfer -UNOS: Questions AND Answers for Transplant Candidates about Kidney Allocation Policy -Directions to access [facility]'s data through the SRTR website. -Informed Consent for Transplant Program Participation patient education packet -National Kidney Registry pamphlet: Yes Method of Instruction: Group class instruction Written instruction - handouts Verbal instruction Patient/Family Response: patient verbalized understanding of the information discussed. Follow-Up Plan: Complete - No need for follow-up Referral/Recommendation: None Yassine La RN [facility] NoteHNO ID: [id number] Author: KRISHAN Poole Service: ? Author Type: Lpn Instructor Type: Progress Notes Filed: 02/16/2021 11:57 AM Note Text: PSYCHOSOCIAL FACE TIME EVALUATION FOR KIDNEY TRANSPLANT COVID-19 PRECAUTIONS Social Supports: Pt's sister and son have confirmed support. Financial Concerns: Pt has Medicare only with a high monthly premium. She was advised to apply for Medicaid. Compliance: Good compliance reported by [facility] [address] Mental Health: Stable Substance Abuse: Denies SIPAT: 6 REFERRAL: Edita Duggan was referred to Social Work for a psychosocial evaluation to establish if she would be a suitable candidate to receive a kidney transplant. DIALYSIS START DATE: August 2019 She receives dialysis at [facility] in [place], [place] on MWF. Phone is [phone]. The pt does use assistive devices for ambulation. She used a wheelchair today and takes a cane with her wherever she goes. This social work psychosocial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 [facility] [employer] DO Work Phone: Hospital Discharge instructions Additional Instructions Remove dressing in 24 hours. No heaving lifting or straining for 2 days.[facility] Work Phone: Summary Purpose Family History Unknown Family Member Name Dates Details Family history of acute myoc ardial infarction: Father(V17.3, Z82.49) Status:Active Family history of diabetes m ellitus: Father, Brother(V18.0, Z83.3) Status:Active Family history of malignant neoplasm of thyroid: Sister(V16.8, Z80.8) Status:Active Unknown Family Member Name Dates Details Family history of acute myoc ardial infarction: Father(V17.3, Z82.49) Status:Active Family history of diabetes m ellitus: Father, Brother(V18.0, Z83.3) Status:Active Family history of malignant neoplasm of thyroid: Sister(V16.8, Z80.8) Status:Active Unknown Family Member Name Dates Details Family history of malignant neoplasm of thyroid: Sister(V16.8, Z80.8) Status:Active Family history of diabetes m ellitus: Father, Brother(V18.0, Z83.3) Status:Active Family history of acute myoc ardial infarction: Father(V17.3, Z82.49) Status:Active Unknown Family Member Name Dates Details Family history of malignant neoplasm of thyroid: Sister(V16.8, Z80.8) Status:Active Family history of diabetes m ellitus: Father, Brother(V18.0, Z83.3) Status:Active Family history of acute myoc ardial infarction: Father(V17.3, Z82.49) Status:Active Unknown Family Member Name Dates Details Family history of malignant neoplasm of thyroid: Sister(V16.8, Z80.8) Status:Active Family history of diabetes m ellitus: Father, Brother(V18.0, Z83.3) Status:Active Family history of acute myoc ardial infarction: Father(V17.3, Z82.49) Status:Active Unknown Family Member Name Dates Details Family history of acute myoc ardial infarction: Father(V17.3, Z82.49) Status:Active Family history of diabetes m ellitus: Father, Brother(V18.0, Z83.3) Status:Active Family history of malignant neoplasm of thyroid: Sister(V16.8, Z80.8) Status:Active Unknown Family Member Name Dates Details Family history of acute myoc ardial infarction: Father(V17.3, Z82.49) Status:Active Family history of diabetes m ellitus: Father, Brother(V18.0, Z83.3) Status:Active Family history of malignant neoplasm of thyroid: Sister(V16.8, Z80.8) Status:Active Unknown Family Member Name Dates Details Family history of malignant neoplasm of thyroid: Sister(V16.8, Z80.8) Status:Active Family history of diabetes m ellitus: Father, Brother(V18.0, Z83.3) Status:Active Family history of acute myoc ardial infarction: Father(V17.3, Z82.49) Status:Active Unknown Family Member Name Dates Details Family history of malignant neoplasm of thyroid: Sister(V16.8, Z80.8) Status:Active Family history of diabetes m ellitus: Father, Brother(V18.0, Z83.3) Status:Active Family history of acute myoc ardial infarction: Father(V17.3, Z82.49) Status:Active Unknown Family Member Name Dates Details Family history of acute myoc ardial infarction: Father(V17.3, Z82.49) Status:Active Family history of diabetes m ellitus: Father, Brother(V18.0, Z83.3) Status:Active Family history of malignant neoplasm of thyroid: Sister(V16.8, Z80.8) Status:Active Unknown Family Member Name Dates Details Family history of acute myoc ardial infarction: Father(V17.3, Z82.49) Status:Active Family history of diabetes m ellitus: Father, Brother(V18.0, Z83.3) Status:Active Family history of malignant neoplasm of thyroid: Sister(V16.8, Z80.8) Status:Active Unknown Family Member Name Dates Details Family history of acute myoc ardial infarction: Father(V17.3, Z82.49) Status:Active Family history of diabetes m ellitus: Father, Brother(V18.0, Z83.3) Status:Active Family history of malignant neoplasm of thyroid: Sister(V16.8, Z80.8) Status:Active Unknown Family Member Name Dates Details Family history of acute myoc ardial infarction: Father(V17.3, Z82.49) Status:Active Family history of diabetes m ellitus: Father, Brother(V18.0, Z83.3) Status:Active Family history of malignant neoplasm of thyroid: Sister(V16.8, Z80.8) Status:Active Unknown Family Member Name Dates Details Family history of malignant neoplasm of thyroid: Sister(V16.8, Z80.8) Status:Active Family history of diabetes m ellitus: Father, Brother(V18.0, Z83.3) Status:Active Family history of acute myoc ardial infarction: Father(V17.3, Z82.49) Status:Active Unknown Family Member Name Dates Details Family history of acute myoc ardial infarction: Father(V17.3, Z82.49) Status:Active Family history of diabetes m ellitus: Father, Brother(V18.0, Z83.3) Status:Active Family history of malignant neoplasm of thyroid: Sister(V16.8, Z80.8) Status:Active Unknown Family Member Name Dates Details Family history of acute myoc ardial infarction: Father(V17.3, Z82.49) Status:Active Family history of diabetes m ellitus: Father, Brother(V18.0, Z83.3) Status:Active Family history of malignant neoplasm of thyroid: Sister(V16.8, Z80.8) Status:Active Unknown Family Member Name Dates Details Family history of acute myoc ardial infarction: Father(V17.3, Z82.49) Status:Active Family history of diabetes m ellitus: Father, Brother(V18.0, Z83.3) Status:Active Family history of malignant neoplasm of thyroid: Sister(V16.8, Z80.8) Status:Active Relationship Condition Age at Onset Recorded Date/T avery daughter Drug abuse Unknown sister Malignant neoplasm of thyroid gland Unkno wn sister Back problem Unknown father Diabetes mellitus Unknown Myocardial infarction Unknown brother Diabetes mellitus Unknown Not Specified Gastric ulcer Unknown natural son Diabetes mellitus Unknown Unknown Family Member Name Dates Details Family history of acute myoc ardial infarction: Father(V17.3, Z82.49) Status:Active Family history of diabetes m ellitus: Father, Brother(V18.0, Z83.3) Status:Active Family history of malignant neoplasm of thyroid: Sister(V16.8, Z80.8) Status:Active Unknown Family Member Name Dates Details Family history of acute myoc ardial infarction: Father(V17.3, Z82.49) Status:Active Family history of diabetes m ellitus: Father, Brother(V18.0, Z83.3) Status:Active Family history of malignant neoplasm of thyroid: Sister(V16.8, Z80.8) Status:Active Unknown Family Member Name Dates Details Family history of acute myoc ardial infarction: Father(V17.3, Z82.49) Status:Active Family history of diabetes m ellitus: Father, Brother(V18.0, Z83.3) Status:Active Family history of malignant neoplasm of thyroid: Sister(V16.8, Z80.8) Status:Active Advance Directives Advance Directive Response Recorded Date/ Time Advance Directives Yes October 10:33am Advance Directive Response Recorded Date/ Time Advance Directives Yes October 9:33am Chief Complaint EDITA DUGGAN is being seen for a 6 month follow-up of.EDITA DUGGAN is being seen for a 6 month follow-up of.[facility] [place] [facility] [place] due SATNAM. was due in DecemberGEREINIER DUGGAN is being seen for a 3 month follow- up of atrial fibrillation and follow up dcc.EDITA DUGGAN is being seen for a 3 month follow-up of atrial fibrillation and follow up dcc.EDITA DUGGAN is being seen for a 3 month follow-up of atrial fibrillation and follow up dcc. EDITA DUGGAN is being seen for a 3 month follow-up of atrial fibrillation and follow up dcc.EDITA DUGGAN is being seen for a 3 month follow-up of atrial fibrillation and follow up dcc.EDITA DUGGAN is being seen for a 3 month follow-up of Holter monitor results.EDITA DUGGAN is being seen for a 3 month follow-up of Holter monitor results.EDITA DUGGAN is being seen for a 6 month follow-up of.EDITA DUGGAN is being seen for a 6 month follow-up of. Chief Complaint and Reason for Visit Chief Complaint T82.898A ESRD I70.213 Chief Complaint I70.213 Chief Complaint I70.213 ESRD Reason for Visit Dialysis AV fistula malfunction Chief Complaint ESRD I70.212 Reason for Visit AVF (arteriovenous f istula) Dialysis AV fistula malfunction Chief Complaint ESRD I70.212 ESRD, PVD Reason for Visit AVF (arteriovenous f istula) Dialysis AV fistula malfunction Chief Complaint ESRD Chief Complaint ESRD i70.213 Chief Complaint t82.898a Chief Complaint t82.898a esr I70.213 Additional Source Comments INFORMATION SOURCE (unrecogn ized section and content) DATE CREATED AUTHOR 03/16/2020 [facility] DATE CREATED AUTHOR AUTHOR'S ORGANIZ ATION 04/06/2021 [facility] DATE CREATED AUTHOR AUTHOR'S ORGANIZ ATION 08/05/2022 [facility] DATE CREATED AUTHOR AUTHOR'S ORGANIZ ATION 08/20/[address] [facility] DATE CREATED AUTHOR AUTHOR'S ORGANIZ ATION 08/20/2022 [employer] DATE CREATED AUTHOR AUTHOR'S ORGANIZ ATION 03/01/2023 [facility] DATE CREATED AUTHOR AUTHOR'S ORGANIZ ATION 03/20/2023 [facility] Reason for Visit (unrecogniz ed section and content) Reason for Visit:Holter Luisana tor:EDITA is here for the application of a 24 hour Holter monitor.Ordering Physician: Dr. Burns: [facility]. EDITA understands monitor is to be returned on: 06/01/21. Patient will be in dialysis on 05/31/21Monitor number [id number] applied.Reason for Visit:Holter Monitor:EDITA is here for the application of a 24 hour Holter monitor.Ordering Physician: Dr. Burns: [facility]. EDITA understands monitor is to be returned on: 06/01/21. Patient will be in dialysis on 05/31/21Monitor number [id number] applied.Holter monitor returned and downloaded.Holter monitor printed and placed on Mauri Quintero desk to dictate.VASC HAVING LONG POST BLEEDS; [facility] 11AMV[facility] 6 MONTH FU; ARELY'S BOTH LEGS, GRAFT FLOW SCAN LEFT LEG [facility] @ 9:30A3 WEEK FOLLOW UPPATIENT HERE FOR 9 MONTH FOLLOW UP TO OCCULT BLOOD IN STOOLS. PATIENT WAS TO CONITN ON THE IRON., SHE DOES GET HER BLOOD VALUES CHECKED AT DIALYSIS EVERY OTHER WEEKVASC 3 MONTH FOLLOW UP; ARELY'S, GFS LEFT LEG [facility] 9:15A4 WEEK HOSPTIAL FOLLOW UPER visit saturday x2 for fistula bleeding3 MONTH FOLLOW UP; GFS LEFT LEG, TOE PRESSURES BILATERAL [facility]-SHE IS SPASMING ALOT DURING TREATMENTFR 03/07 HOSP F/U; RETROGRADE FISTULOGRAM LEFT ARMPatient here for 1 year follow up iron deficiency anemia.6 MONTH FOLLOW UP; GFS LEFT LEG 8:30AF/U FISTUALOGRAM LEFT ARMTo go over testing GFS and ARELY's B/L legs; testing at 9:30amNo InformationHAVING ARTERIAL SPASMS; GFS 11:30A Care Teams (unrecognized sec tion and content) Team Status: Inactive Member Role Status Kitty Byrd II MD Primary Care Provider Active Dillon Wilson MD Attending Provider Active Team Status: Active Member Role Status Kitty Byrd II MD Primary Care Provider Active Corinne Corrigan NP-C Attending Provider Active Team Status: Active Member Role Status Kitty Byrd II MD Primary Care Provider Active Team Status: Inactive Member Role Status Kitty Byrd II MD Primary Care Provider Active Dillon Wilson MD Admit Provider, Attending Pr ovider Active Team Status: Inactive Member Role Status Kitty Byrd II MD Primary Care Provider Active Corinne Corrigan NP-C Attending Provider Active Team Status: Inactive Member Role Status Kitty Byrd II MD Primary Care Provider Active Start: March 14, 2023 End: March 14, 2023 Dillon Wilson MD Attending Provider Active Start: March 14, 2023 End: March 14, 2023 Team Status: Active Member Role Status Kitty Byrd II MD Primary Care Provider Active Start: March 19, 2023 Dillon Wilson MD Attending Prov ider, Other Provider Active Start: March 19, 2023 Team Status: Inactive Member Role Status Kitty Byrd II MD Primary Care Provider Active Start: March 28, 2023 End: March 28, 2023 Dillon Wilson MD Attending Provider Active Start: March 28, 2023 End: March 28, 2023 Goals (unrecognized section and content) Goals may be documented in a n alternate section FOR RECORDS PERTAINING TO PATIENTS WHO ARE OR HAVE BEEN ENROLLED IN A CHEMICAL DEPENDENCY/SUBSTANCEABUSE PROGRAM, SOME INFORMATION MAY BE OMITTED. This clinical summary was aggregated from multiple sources. Caution should be exercised in using it in the provision of clinical care. This summary normalizes information from multiple sources, and as a consequence, information in this document may materially change the coding, format and clinical context of patient data. In addition, data may be omitted in some cases. CLINICAL DECISIONS SHOULD BE BASED ON THE PRIMARY CLINICAL RECORDS. [employer] provides no warranty or guarantee of the accuracy or completeness of information in this document.
[2023-03-29 09:08] LABS: Basophils Absolute Auto 0.1 10^3/uL (0.0-0.1); Basophils Percent Auto 0.9 % (0.2-2.0); Eosinophils Absolute Auto 0.2 10^3/uL (0.0-0.7); Eosinophils Percent Auto 2.3 % (0.9-7.0); Hematocrit 33.8 % (36.0-48.0); Hemoglobin 10.5 g/dL (12.0-16.0); Immature Granulocytes Abs Auto 0.07 10^3/uL (0.00-0.03); Immature Granulocytes Pct Auto 0.8 % (0.0-0.5); Lymphocytes Absolute Auto 1.6 10^3/uL (1.2-3.8); Lymphocytes Percent Auto 18.6 % (20.5-60.0); Mean Corpuscular HGB Conc 31.1 g/dL (29.9-35.2); Mean Corpuscular Hemoglobin 31.6 pg (26.7-34.0); Mean Corpuscular Volume 101.8 fL (81.0-99.0); Mean Platelet Volume 9.3 fL (9.5-13.5); Monocytes Absolute Auto 0.9 10^3/uL (0.3-0.8); Monocytes Percent Auto 9.9 % (1.7-12.0); Neutrophils Absolute Auto 5.9 10^3/uL (1.4-6.5); Neutrophils Percent Auto 67.5 % (43.0-75.0); Platelet Count 200 10^3/uL (150-450); Red Blood Count 3.32 10^6/uL (4.20-5.40); Red Cell Distribution Width 15.1 % (11.0-15.0); White Blood Count 8.8 10^3/uL (4.0-11.0)
[2023-03-29] MEDS: SILVER NITRATE APPLICATOR STICK 3 APPLIC TOPICAL (09:14)
[2023-03-29 09:22] LABS: Alanine Aminotransferase 12 U/L (14-59); Albumin Globulin Ratio 0.7; Albumin Level 2.7 g/dL (3.4-5.0); Alkaline Phosphatase 91 U/L (46-116); Anion Gap 13.3; Aspartate Amino Transferase 14 U/L (15-37); BUN Creatinine Ratio 3.8; Bilirubin Total 0.3 mg/dL (0.2-1.0); Carbon Dioxide 30.1 mmol/L (21.0-32.0); Chloride 96 mmol/L (98-107); Estimated GFR (African America 6 (>=60); Estimated GFR (Non-African Ame 5 (>=60); Globulin 3.9 g/dL; Glucose 109 mg/dL (74-106); Potassium 4.4 mmol/L (3.5-5.1); Sodium 135 mmol/L (136-145); Total Protein 6.6 g/dL (6.4-8.2)
[2023-03-29 09:33] LABS: INR 2.13; Prothrombin Time 21.6 sec (9.0-11.6)
[2023-03-29 10:55] VITALS: BP 118/88; PULSE 100; RESP 18; O2SAT 98
== END 2023-03-29 10:56 | disposition home or self-care (01) ==
PROVIDERS: Emergency Provider Emergency Medicine Emergency Medical Services; PCP Internal Medicine
DX: T82.838A Hemorrhage due to vascular prosthetic devices, implants and grafts, initial encounter (principal); Z99.2 Dependence on renal dialysis; Z79.01 Long term (current) use of anticoagulants; Z79.899 Other long term (current) drug therapy; Z87.891 Personal history of nicotine dependence
CPT/HCPCS: 36415; 80053; 85025; 85610; 99283

== ENCOUNTER 2023-04-01 13:18 | Outpatient (REF) | payer MEDICARE, OTHER, SELFPAY ==
--- OUTSIDE RECORDS SUMMARY | 2023-04-01 13:34 | XMS_ITS | CCD ---
Author Name Unknown Address [address] [place] [address] Organization [facility] Care Team Providers Care Membership Administrator Name Role Phone Unavailable Unavailable Dillon Wilson Unavailable Master Duggan Unavailable Corinne Corrigan Unavailable EDUARDO Byrd Primary Care Provider MD Dillon Wilson Attending Provider PAMELA Corrigan Attending Provider EDUARDO Byrd Primary Care Provider MD Dillon Wilson Attending Provider MD Dillon Wilson Admit Provider EDUARDO Byrd Primary Care Provider MD Dillon Wilson Attending Provider FAWWAD, BRADEN H Attending Unavailable FAWWAD, BRADEN H Admitting Unavailable DR CURTIS BYRD Primary Care Unavailable FAWWAD, BRADEN H Attending Unavailable FAWWAD, BRADEN H Admitting Unavailable DR CURTIS BYRD Primary Care Unavailable FAWWAD, BRADEN H Attending Unavailable FAWWAD, BRADEN H Admitting Unavailable DR CURTIS BYRD Primary Care Unavailable FAWWAD, BRADEN H Attending Unavailable FAWWAD, BRADEN H Admitting Unavailable DR CURITS BYRD Primary Care Unavailable FAWWAD, BRADEN H [...] DR MCMANUS Primary Care Unavailable BAKHOUS, AZIZ Admitting Unavailable [...] Attending Unavailable EDUARDO Byrd Primary Care Provider MD Dillon Wilson Attending Provider Corinne Corrigan Admitting Unavailable Corinne Corrigan R Attending Unavailable Quang Byrdel Primary Care Unavailable Carson, Curtis Primary Care Unavailable Langenberg, Dillon T Attending Unavailabl e Langenberg, Dillon T Admitting Unavailabl e Curtis Byrd Primary Care Unavailable Langenberg, Dillon T Attending Unavailabl e Langenberg, Dillon T Admitting Unavailabl e Quang Byrdel Primary Care Unavailable Langenberg, Dillon T Admitting Unavailabl e Langenberg, Dillon T Attending Unavailabl e Langenberg, Dillon T Attending Unavailabl e Langenberg, Dillon T Admitting Unavailabl e Curtis Byrd Primary Care Unavailable Langenberg, Dillon T Attending Unavailabl e Langenberg, Dillon T Admitting Unavailabl e Carson, Curtis Primary Care Unavailable Quang Byrdel Primary Care Unavailable Langenberg, Dillon T Admitting Unavailabl e Langenberg, Dillon T Attending Unavailabl e Langenberg, Dillon T Admitting Unavailabl e Curtis Byrd Primary Care Unavailable Langenberg, Dillon T Attending Unavailabl e Allergies Allergy Classification Reported Allergen(s) Allergy Type Date of Onset Reaction(s) Facility (20 sources) Penicillins; Translations: [Penicillins] Allergy to drug (finding) 03-29-19 21 Hives, Swelling of Lip/Tongue/Th roat [facility] (20 sources) atorvastatin; Translations: [Lipitor] Drug Allergy Myalgia, bodyaches [facility] Other (10 sources) Purified Protein Derivative of Tuberculin; Translations: [Tuberculin Tests] Drug Allergy [facility] 250 DO Work Phone: (11 sources) Penicillin Drug Allergy anaphylaxis [facility] Other (6 sources) Penicillin V Drug Allergy anaphylaxis [facility] Other (9 sources) atorvastatin Drug Allergy 03-30-19 21 Cramping of the Muscles [facility] (9 sources) tuberculin test Propensity to adverse reactions 06-06-19 22 Redness of Skin [facility] (1 source) Dextroamphetamine Drug Allergy [facility] (1 source) Penicillin Drug Allergy [facility] Medications Current Medications Medication Drug [...] oral tablet (20 sources) Start: 01-26-2021 take 58933 ug by mouth once daily Biotin Active 65292 MCG PO Daily January 26, 2021 12:00am Start: 03-17-2020 End: 01-26-2021 take 5000 ug by mouth once daily in the morning Biotin Discontinued 5000 MCG PO Every morning March 17, 2020 12:00am January 26, 2021 1:09pm Biotin 5000 MCG as directed Once a day Active Biotin 5000 MCG as directed Once a day Active take 2 tablets by [facility] once daily Biotin 5000 MCG Oral Tablet TAKE 2 TABLET Daily Quantity: 0 Refills: 0 Ordered: 05-Jan-2021 DO Active Biotin Active carvedilol 3.125 mg oral tablet (12 sources) alpha-Adrenergic Arsen, beta-Adrenergic Arsen Start: 11-08-2022 take 1 dose by mouth twice daily in the morning Carvedilol Active 3.125 MG PO Twice daily November 07, 2022 11:00pm Hold AM dose HD days Start: 03-20-2022 take [facility] daily Carvedilol 3.125 MG Oral Tablet TAKE 1 TABLET BY MOUTH TWICE DAILY Quantity: 180 Refills: 3 Ordered: 20-Mar-2022 Ozzie Quintero MD Start : 20-Mar-2022 Active take 1 tablet by [facility] once daily at mealtime Carvedilol 3.125 MG 1 tablet with food Orally every day ( M, W, F does not take in mornings) Active cinacalcet 30 mg oral tablet (20 sources) Calcium-sensing Receptor Agonist Start: 03-06-2022 take 30 mg by mouth three times weekly Cinacalcet Active 30 MG PO 3 Times a week March 06, 2022 12:00am take 5 tablets by [facility] three times weekly Cinacalcet HCl - [...] DO Active lidocaine 0.05 mg/mg medicated patch (18 sources) Antiarrhythmic, Amide Local Anesthetic Start: 11-08-2022 [...] Ordered: 30-May-2021 DO Active polyethylene glycol 3350 64735 mg powder for oral solution (20 sources) [...] MG Oral Tablet TAKE DIRECTED BY [facility] Quantity: 135 Refills: 0 Ordered: [...] 2019 10:53am take 0.5 tablet by m outh once daily Amiodarone HCl 200 MG 1/2 [...] Start: 11-17-2019 take 1 tablet by marshal twice daily at bedtime Bumetanide Active 1 MG PO Daily at bedtime November 16, 2019 11:00pm TAKE 1 TABLET BY MOUTH TWICE DAILY Start: 08-28-2019 End: 11-17-2019 take 2 mg by mouth twice daily Bumetanide Discontinued 2 MG PO Twice daily 60 August 27, 2019 11:00pm November 17, 2019 1:03pm Twice daily at 0800 and 1600 calcitriol 0.22238 mg oral capsule (9 sources) Vitamin D3 [...] Date Episodic/Chronic Acute and unspecified renal failure (18 sources) Renal failure syndrome; Translations: [Unspecified kidney [...] Coronary arteriosclerosis; Translations: [Atherosclerotic heart disease of [place] coronary artery without angina pectoris] 09-16-2019 Chronic Deficiency and other anemia (20 sources) Anemia of chronic disease; Translations: [Anemia in chronic kidney disease] Chronic Deficiency and other anemia (14 sources) Anemia due to chronic blood loss; Translations: [Iron deficiency anemia secondary to blood loss (chronic)] Chronic Deficiency and other anemia (14 sources) Iron deficiency anemia; Translations: [Iron deficiency [...] hyponatremia] Onset: 3 11-18-2019 Episodic Gastrointestinal hemorrhage (15 sources) Hematochezia; Translations: [Melena] Onset: 2 Resolved: [...] sources) Long-term current use of anticoagulant; Translations: [[facility] (current) use of anticoagulants] Episodic Other aftercare (2 sources) 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; Translations: [[facility] CURRNT USE ANTICOAGULANTS] Onset: 2 Resolved: 2 Episodic Other aftercare (5 sources) Encounter for therapeutic drug level monitoring; Translations: [ENC THERAPEUTC DRUG LEVL MONITORING] Onset: 3 Episodic Other circulatory disease (17 sources) Peripheral arterial occlusive disease; Translations: [Disorder of arteries and arterioles, unspecified] Chronic Other circulatory disease (4 sources) Disorder of arteries and arterioles, unspecified Onset: 2 Resolved: 2 Chronic Other circulatory disease (19 sources) Arteriovenous fistula; Translations: [Arteriovenous fistula, acquired] 11-24-2019 Chronic Other circulatory disease (8 sources) Arteriovenous fistula, acquired; Translations: [Arteriovenous fistula, acquired] Chronic Other diseases of kidney and ureters (17 sources) Hyperparathyroidism due to renal insufficiency; Translations: [Secondary hyperparathyroidism of renal origin] Chronic Other diseases of kidney and ureters (9 sources) Secondary hyperparathyroidism; Translations: [Secondary hyperparathyroidism of renal origin] 03-30-2020 Chronic Other gastrointestinal disorders (17 sources) Ulceration of intestine; Translations: [Ulcer of intestine] Episodic Other gastrointestinal disorders (17 sources) Occult blood in stools; Translations: [Other fecal abnormalities] Episodic Other hematologic conditions (9 sources) Raised cardiac enzyme or marker; Translations: [Other specified abnormalities of plasma proteins] 09-15-2019 Episodic Other lower respiratory disease (20 sources) Dyspnea; Translations: [Shortness of breath] Episodic Other nervous system disorders (17 sources) Chronic pain; Translations: [Other chronic pain] Chronic Other nervous system disorders (17 sources) Common peroneal nerve paralysis; Translations: [Lesion [...] Da te Episodic/Chronic Other aftercare (1 source) 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; Translations: [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] Onset: 08-30-2021 Episodic Other aftercare (1 source) Other longterm (current) drug therapy; Translations: [OTH [facility] CURRENT DRUG THERAPY] Onset: 08-30-2021 Episodic Superficial injury; contusion (2 sources) Contusion of left upper arm, initial encounter Onset: 06-22-2021 Resolved: 06-22-2021 Episodic Unclassified (1 source) CONTACT W/AND (SUSP) EXPOS COVID-19; Translations: [CONTACT W/AND (SUSP) EXPOS COVID-19] Onset: 06-01-2022 Results Test Name Value Interpretation Reference Range Facility US ankle/arm indiceson 03-28 US ankle/arm indices [facility] [place] [address] Ultrasound Report Signed Patient: Edita Duggan MR#: [id number] : 1950 Acct:[id number] Age/Sex: 72 / F ADM Date: 03/28/23 Loc: [facility] Room: Type: [facility] Attending Dr: Dillon Wilson MD Ordering Provider: Dillon Wilson MD Date of Service: 03/28/23 US/US ankle/arm indices: I70.213 Copies to: Dillon Wilson MD LOWER EXTREMITY SEGMENTAL ARTERIAL DOPSCAN (PVR) INDICATION: Surveillance study for left leg bypass surgery. PROCEDURE: Right arm blood pressure is 126. Pressures of the right leg are 76 at the ankle using the posterior tibial artery and CNO at the ankle using the dorsalis pedis artery with ankle-brachial index of -NC- 0.60 . Pressures of the left leg are 176 at the ankle using the posterior tibial artery and CNO at the ankle using the dorsalis pedis artery with ankle-brachial index of -NC- 1.40 . Wave forms by plethysmography are biphasic bilaterally.. 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 Impression dictated by: Dillon Wilson MD03/28/2023 2:17 PM Dictation Location: RAD-DOC-04 Tech: Lauren Apple Transcribed By: MERVAT 03/28/231416 Dictated By: Dillon Wilson MD 03/28/231414 Signed By: 03/28/23 141 [facility] US arterial duplex LE LTon 0 03-28-2023 US arterial duplex LE LT [place] [id number] Ultrasound Report Signed Patient: Eidta Duggan MR#: [id number] : 1950 Acct:[id number] Age/Sex: 72 / F ADM Date: 03/28/23 Loc: [facility] Room: Type: [facility] CLI Attending Dr: Dillon Wilson MD Ordering Provider: Dillon Wilson MD Date of Service: 03/28/23 US/US arterial duplex LE LT: I70.212 Copies to: Dillon Wilson MD Left lower extremity arterial duplex evaluation INDICATIONS: Surveillance for left femoropopliteal bypass graft FINDINGS: Left lower extremity: The highest velocity was 312 located at the proximal location. The bypass is patent. The lowest velocity was 39 in the midportion of the graft. US/US arterial duplex LE LT IMPRESSION: As above Impression dictated by: Dillon Wilson MD03/28/2023 2:17 PM Dictation Location: RAD-DOC-04 Tech: Roberta De Guzman Transcribed By: MERVAT 03/28/231416 Dictated By: Dillon Wilson MD 03/28/231416 Signed By: 03/28/23 141 [facility] US AV Fistulaon 03-16-2023 US AV Fistula [facility] Main [address] [address] Ultrasound Report Signed Patient: Edita Duggan MR#: [id number] : 1950 Acct:[id number] Age/Sex: 72 / F ADM Date: 03/14/23 Loc: [facility] Room: Type: [facility] CLI Attending Dr: Dillon Wilson MD Ordering [...] Dillon Wilson MD03/16/2023 2:17 PM Dictation Location: [place] [address] Tech: Lauren Ambika Transcribed By: MERVAT 03/16/231416 Dictated By: Dillon Wilson MD 03/16/231416 Signed By: 03/16/23 141 [facility] US ankle/arm indiceson 11-22 US ankle/arm indices [facility] [place] [place] [address] Ultrasound Report Signed Patient: Edita Duggan MR#: [id number] : 1950 Acct:[id number] Age/Sex: 72 / F ADM Date: 11/22/22 Loc: [facility] Room: Type: [facility] Attending Dr: Corinne Corrigan NURSERY SCHOOL TEACHER-C Ordering Provider: Corinne Corrigan APRN Date of [...] Dillon Wilson MD11/22/2022 1:22 PM Dictation Location: [place] [address] Tech: Zoey Gonzalez Transcribed By: MERVAT 11/22/22 132 Dictated By: Dillon Wilson MD 11/22/22 132 Signed By: 11/22/22 1322 [facility] US arterial duplex LE LTon 0 11-22-2022 US arterial duplex LE LT [facility] [place] [address] Ultrasound Report Signed Patient: Edita Duggan MR#: [id number] : 1950 Acct:[id number] Age/Sex: 72 / F ADM Date: 11/22/22 Loc: [facility] Room: Type: [facility] Attending Dr: Corinne Corrigan NURSERY SCHOOL TEACHER-C Ordering Provider: Corinne Corrigan APRN Date of [...] Dillon Wilson MD11/22/2022 1:21 PM Dictation Location: [place] [address] Tech: Zoey Gonzalez Transcribed By: MERVAT 11/22/22 1321 Dictated By: Dillon Wilson MD 11/22/22 1320 Signed By: 11/22/22 132 [facility] Office Visit (Cardiology)on 08-20-2022 Follow-up visit Diagnoses/Problems [...] partial History of Leg surgery History of FASHION ADVISER femoral-popliteal History of Tonsillectomy History of Vascular [...] TWICE DAILY NEEDED Ferrlecit 12.5 MG/ML Intravenous Zxipfoin00.5 mg everoy other week dialysis days Midodrine HCl - 5 MG Oral Tablettake 1 tablet before treatment and 1 tablet after treatment for low blood pressure. MiraLax 17 GM/SCOOP Oral PowderMIX 1 CAPFUL (17GM) IN 8 OUNCES OF WATER, JUICE, OR TEA AND DRINK DAILY. Pantoprazole Sodium 20 MG Oral Tablet Delayed ReleaseTAKE 1 TABLET BY MOUTH ONCE DAILY Pro-Stat Oral Pcgokh13 ML TWICE DAILY Audrey-Rafael Oral TabletTake 1 tablet daily Rosuvastatin Calcium 10 MG Oral TabletTAKE 1 TABLET BY MOUTH ONCE DAILY Sevelamer Carbonate 800 MG Oral Tablet2 pills every meal and 1 with snacks Tylenol 325 MG Oral TabletTAKE 2 TABLET Every 6 hours PRN Warfarin Sodium 2 MG Oral TabletTAKE DIRECTED BY [facility] Zemplar 2 MCG/ML Intravenous Solution7 mcg 3 times weekly on dialysis days Allergies Medication Penicillins Allergy; Hives;; Updated By: Jocelyn Stubbs; 04/04/2021 11:18:13 AM Lipitor Adverse Reaction; Myalgia; Recorded By: Elizabeth Scruggs; 05/30/2021 3:29:51 PM Tuberculin Tests Recorded By: Elizbaeth Scruggs; 05/30/2021 3:29:51 PM Social History Problems [...] for comp (more content not included)... Normal [employer] Tobacco Screening.on 023 Fall risk assessment a) No falls within the last year [facility] 250 DO Work Phone: Tobacco use status [facility] b) No [facility] 250 DO Work Phone: US UNI ankle/arm indiceson 0 07-26-2022 US UNI ankle/arm indices [facility] Main [place] [address] [place] [address] Ultrasound Report Signed Patient: Edita Duggan MR#: [id number] : 1950 Acct:[id number] Age/Sex: 71 / F ADM Date: 07/26/22 Loc: [facility] Room: Type: [facility] Attending Dr: Dillon Wilson MD Ordering Provider: [...] Dillon Wilson MD07/26/2022 2:39 PM Dictation Location: [place] [address] Tech: Roberta De Guzman Transcribed By: MERVAT 07/26/22 1439 Dictated By: Dillon Wilson MD 07/26/22 1437 Signed By: 07/26/22 1439 [facility] US arterial duplex LE LTon 0 07-26-2022 US arterial duplex LE LT [facility] [place] [address] Ultrasound Report Signed Patient: Edita Duggan MR#: [id number] : 1950 Acct:[id number] Age/Sex: 71 / F ADM Date: 07/26/22 Loc: [facility] Room: Type: [facility] Attending Dr: Dillon Wilson MD Ordering Provider: [...] Dillon Wilson MD07/26/2022 2:41 PM Dictation Location: [place] [address] Tech: Roberta Gege Transcribed By: MERVAT 07/26/22 1441 Dictated By: Dillon Wilson MD 07/26/22 1439 Signed By: 07/26/22 1441 [facility] POTASSIUMon 07-13-2022 Potassium [Moles/Vol] 5.6 mmol/L Critically high 3.5-5.1 [facility] Comment on above: Performed By: #### K #### [facility] [address] [place] [address] [address] Neto Cornell POTASSIUMon 06-04-2022 Potassium [Moles/Vol] 5.3 mmol/L Critically high 3.5-5.1 [facility] Comment on above: Performed By: #### K #### [facility] [address] [place] [address] [address] Neto Cornell Covid-19 PCR (CVDTBH)on SARS-CoV-2 (COVID-19) RNA MARCO+probe Ql (Unsp spec) Detected Abnormal NOT DETECTED [facility] Comment on above: Result Comment: This test is not yet approved or cleared by the [place] FDA. When there are no FDA-approved or cleared tests available, and other criteria are met, FDA can make tests available under an emergency access mechanism called an Emergency Use Authorization (EUA). The EUA for this test is supported by the [place] of Health and Human Service's (HHS's) declaration [...] longer be used). Performed By: #### [facility] #### [facility] [address] [place] [address] Dr. Neto Cornell Office Visit (Cardiology)on 03-20-2022 [...] TWICE DAILY NEEDED Ferrlecit 12.5 MG/ML Intravenous Ptkrfjgr70.5 mg everoy other week dialysis days MiraLax 17 GM/SCOOP Oral PowderMIX 1 CAPFUL (17GM) IN 8 OUNCES OF WATER, JUICE, OR TEA AND DRINK DAILY. Pantoprazole Sodium 20 MG Oral Tablet Delayed ReleaseTAKE 1 TABLET BY MOUTH ONCE DAILY Pro-Stat Oral Dxpodc16 ML TWICE DAILY Audrey-Rafael Oral TabletTake 1 tablet daily Rosuvastatin Calcium 10 MG Oral TabletTAKE 1 TABLET BY MOUTH ONCE DAILY Sevelamer Carbonate 800 MG Oral Tablet2 pills every meal and 1 with snacks Tylenol 325 MG Oral TabletTAKE 2 TABLET Every 6 hours PRN Warfarin Sodium 2 MG Oral TabletTAKE DIRECTED BY [facility] Zemplar 2 MCG/ML Intravenous Solution7 [...] rashes. Neurological (more content not included)... Normal [employer]MScouting Tobacco Screening.on 023 Adult depression screening assessment No [facility] [employer] 250 DO Work Phone: Fall risk assessment a) No falls within the last year [facility] [employer] 250 DO Work Phone: Tobacco use status [facility] b) No [facility] [employer] 250 DO Work Phone: Laboratory - CoagulationOrde red By: Dillon Wilson on 03-07-2022 PT Coag (PPP) [Time] 21.9 s 9.0-12.9 [facility] Platelet poor plasma interna tional normalized ratio (INR) by coagulation assay (relatOrdered By: Dillon Wilson on 03-07-2022 INR Coag (PPP) [Relative time] 1.9 {INR} [facility] Comment on above: INR Therapeutic Rang e [...] 08-29-2021 BASO # 0.1 103/ul Normal 0.0-0.1 [facility] Comment on above: Performed By: #### C BC #### [facility] [address] [place] [address] Dr. Neto Cornell Basophils/100 WBC (Bld) 0.9 % Normal 0.2-2.0 [facility] Comment on above: Performed By: #### C BC #### [facility] [address] [place] [address] [address] Neto Cornell EO # 0.1 103/ul Normal 0.0-0.7 [facility] Comment on above: Performed By: #### C BC #### [facility] [address] [place] [address] [address] Neto Cornell Eosinophils/100 WBC (Bld) 1.1 % Normal 0.9-7.0 [facility] Comment on above: Performed By: #### C BC #### [facility] [address] [place] [address] [address] Neto Cornell Erythrocyte distribution width (RBC) [Ratio] 15.0 % Normal 11.0-15.0 [facility] Comment on above: Performed By: #### C BC #### [facility] [address] [place] [address] Dr. Neto Cornell Hematocrit (Bld) [Volume fraction] 35.8 % Critically low 36.0-48.0 [facility] Comment on above: Performed By: #### C BC #### [facility] [address] [place] [address] Dr. Neto Cornell Hemoglobin (Bld) [Mass/Vol] 11.8 g/dL Critically low 12.0-16.0 [facility] Comment on above: Performed By: #### C BC #### [facility] [address] [place] [address] Dr. Neto Cornell IG # 0.06 10e3/ul Critically high 0.00-0.03 [facility] Comment on above: Performed By: #### C BC #### [facility] [address] [place] [address] Dr. Neto Cornell IG % 0.7 % Critically high 0.0-0.5 [facility] Comment on above: Performed By: #### C BC #### [facility] [address] [place] [address] Dr. Neto Cornell LYMPH # 1.9 103/ul Normal 1.2-3.8 [facility] Comment on above: Performed By: #### C BC #### [facility] [address] [place] [address] Dr. Neto Cornell Lymphocytes/100 WBC (Bld) 20.2 % Critically low 20.5-60.0 [facility] Comment on above: Performed By: #### C BC #### [facility] [address] [place] [address] Dr. Neto Cornell MANUAL DIFF REQ NO Normal [facility] Comment on above: Performed By: #### C BC #### [facility] [address] [place] [address] Dr. Neto Cornell MCH (RBC) [Entitic mass] 32.8 pg Normal 26.7-34.0 [facility] Comment on above: Performed By: #### C BC #### [facility] [address] [place] [address] Dr. Neto Cornell MCHC (RBC) [Mass/Vol] 33.0 g/dL Normal 29.9-35.2 [facility] Comment on above: Performed By: #### C BC #### [facility] [address] [place] [address] [address] Neto Cornell MCV (RBC) [Entitic vol] 99.4 fL Critically high 81.0-99.0 [facility] Comment on above: Performed By: #### C BC #### [facility] [address] [place] [address] [address] Neto Cornell MONO # 0.9 103/ul Critically high 0.3-0.8 [facility] Comment on above: Performed By: #### C BC #### [facility] [address] [place] [address] [address] Neto Cornell Monocytes/100 WBC (Bld) 9.6 % Normal 1.7-12.0 [facility] Comment on above: Performed By: #### C BC #### [facility] [address] [place] [address] Dr. Neto Cornell NEUT # 6.2 103/ul Normal 1.4-6.5 [facility] Comment on above: Performed By: #### C BC #### [facility] [address] [place] [address] [address] Neto Cornell Neutrophils/100 WBC (Bld) 67.5 % Normal 43.0-75.0 [facility] Comment on above: Performed By: #### C BC #### [facility] [address] [place] [address] Dr. Neto Cornell Platelet mean volume (Bld) [Entitic vol] 8.7 fL Critically low 9.5-13.5 [facility] Comment on above: Performed By: #### C BC #### [facility] [address] [place] [address] [address] Neto Cornell PLT 213 103/ul Normal 150-450 [facility] Comment on above: Performed By: #### C BC #### [facility] [address] [place] [address] Dr. Neto Cornell RBC 3.60 106/ul Critically low 4.20-5.40 [facility] Comment on above: Performed By: #### C BC #### [facility] [address] [place] [address] [address] Neto Cornell WBC 9.2 103/ul Normal 4.0-11.0 [facility] Comment on above: Performed By: #### C BC #### [facility] [address] [place] [address] [address] Neto Cornell PROTIMEon 08-29-2021 INR Coag (PPP) [Relative time] 2.22 {INR} Normal [facility] Comment on above: Performed By: #### P T #### [facility] [address] [place] [address] Dr. eNto Cornell INR GUIDELINES SEE BELOW Normal [facility] Comment on above: Result Comment: MERLYN RED INR: 2.0 - 3.0 CONDITIONS NOT LISTED BELOW 2.5 - 3.5 FOR PROSTHETIC HEART VALVE REPLACEMENT 2.5 - 3.5 RECURRENT THROMBOSIS Performed By: #### P T #### [facility] [address] [place] [address] Dr. Neto Cornell PT Coag (PPP) [Time] 22.8 s Critically high 9.0-11.6 [facility] Comment on above: Performed By: #### P T #### [facility] [address] [address] [address] Neto Cornell Tobacco Screening.on Adult depression screening assessment No [facility]-[place] 250 DO Work Phone: Fall risk assessment a) No falls within the last year [facility] 250 DO Work Phone: Tobacco use status CP b) No [facility] 250 DO Work Phone: [phone] Tobacco Screening.on 022 Fall risk assessment a) No falls within the last year [facility] 250 DO Work Phone: Tobacco use status CPHS b) No [facility] 250 DO Work Phone: No Panel Informationon 03-28 3.14\S\3.14 Normal 0.45-5.33 [facility] Heart[facility] 250 DO Work Phone: Comment on above: PERFORMED BY:[facility] [place], [place] [phone] MEDICAL DIRECTORKATARINA WILKERSON M.D. 35\S\35 Normal 10-42 [facility] Jr-Ricky diaz 250 DO Work Phone: 9.8\S\9.8 Normal 8.2-10.2 [facility] Heart-Ricky diaz 250 DO Work Phone: 29.1\S\29.1 Normal 22.0-30.0 [facility] Heart-[place]icky diaz 250 DO Work Phone: 90\S\90 below low threshold 95-114 [facility] Heart-Ricky diaz 250 DO Work Phone: 5.1\S\5.1 Normal 3.5-5.1 [facility] Celina diaz 250 DO Work Phone: 131\S\131 below low threshold 136-146 [facility] Heart-[place]icky diaz 250 DO Work Phone: 9\S\9 Normal [facility] Jr-Ricky diaz 250 DO Work Phone: Comment on above: GFR estimated refere nce range: According to KDOQI guidelines, <60 ml/min/1.73m2 is sufficient to diagnose a patient with chronic kidney disease. 7\S\7 Normal [facility] Celina diaz 250 DO Work Phone: 5.82\S\5.82 above high threshold 0.44-1.03 [facility] Heart-Ricky diaz 250 DO Work Phone: 26\S\26 above high threshold 9-23 [facility] Heart-[place]icky diaz 250 DO Work Phone: 91\S\91 Normal 70-100 [facility] Heart-Ricky diaz 250 DO Work Phone: Comment on above: Random Glucose Refer ence Range is dependent on time and content of last meal. Glucose of more than 200 mg/dL in a nonstressed, ambulatory subject supports the diagnosis of Diabetes Mellitus. ADA recommended reference range Radiologyon 03-28-2021 XR Chest 2 Views Normal [facility] 250 DO Work Phone: CNOVon 02-14-2021 CNOV Office Visit (TXCTGL ) -- EDITA DUGGAN ([id number]) 1950 F TRN Date Time Provider Department 02/14/21 1:00 PM NEPHROLOGY TXP CLINIC TXCTGL During your visit today, we recorded the following information about you: Temperature Pulse Blood pressure Weight 97.5 degrees 62/minute 125/53 76.2 kg Height 1.689 m Zeke Chin MD 02/14/2021 2:01 PM Signed [facility] [place] at [facility] Transplant Evaluation CC: Patient is a 70 year old female here for transplant candidacy evaluation. Reason for visit: here for evaluation to be a Kidney Transplant recipient. Referred by: Rayna Stapleton MD [address] [place] [place] [address] I will communicate with the referring provider by letter and/or shared electronic medical record. 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 Patient reports renal biopsy at [facility], will obtain pathology . Patient has [...] nerve damage ? Left leg bypass, at [facility], Op-report requested. Patient reports scheduled for angiogram [...] Per patient recent cardiac work up at [facility], records requested. PAP Test: Not applicable, [facility]. Mammogram: Completed on 06/30/20, results FINDINGS: DIAGNOSTIC CATEGORY (more content not included)... Normal [facility] CNOV Office Visit (TXCTGL ) -- EDITA DUGGAN ([id number]) 1950 F TRN Date Time Provider Department 02/14/21 12:30 PM UROLOGY TXP CLINIC TXCTGL During your visit today, we recorded the following information about you: Temperature Pulse Blood pressure Weight 97.5 degrees 62/minute 125/53 76.2 kg Height 1.689 m Mary Rivers MD 02/14/2021 2:10 PM Signed [facility] [place] [facility] Transplant Evaluation CC: Patient is a 70 year old female here for transplant candidacy evaluation. Reason for visit: here for evaluation to be a Kidney Transplant recipient. Referred by: Rayna Stapleton MD [address] [place] [address] I will communicate with the referring provider by letter and/or shared electronic medical record. 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 Patient reports renal biopsy at [facility], will obtain pathology . Patient has [...] nerve damage ? Left leg bypass, at [facility], Op-report requested. Patient reports scheduled for angiogram [...] Per patient recent cardiac work up at [facility], records requested. PAP Test: Not applicable, [facility]. Mammogram: Completed on 06/30/20, results FINDINGS: DIAGNOSTIC CATEGORY 2--BENIGN FINDING: RIGHT BREAST: No significant suspicious finding. scattered benign-appearing calcifications are present. scattered benign-appearing lymph nodes are present. No significant (more content not included)... Normal [facility] CN Office Visit (TXCTGL ) -- IGOREDITA GARCIA ([id number]) 1950 F TRN Date Time Provider Department [...] about Kidney Allocation Policy -Directions to access [facility]'s data through the SRTR website. -Informed Consent for Transplant Program Participation patient education packet -National Kidney Registry pamphlet: Yes Method of Instruction: Group class instruction Written instruction - handouts Verbal instruction Patient/Family Response: patient verbalized understanding of the information discussed. Follow-Up Plan: Complete - No need for follow-up Referral/Recommendation: None Yassine La RN Pre-Tuyere Fitter Referring Provider: CECY LOVE [[id number]] Allergies As of Date: 02/14/2021 (Not on [...] Encounter Status:Closed by YASSINE LA on 02/14/21 [facility] CNSWon 02-14-2021 CNSW Social Work (TXCTGL) -- EDITA DUGGAN ([id number]) 1950 F TRN Date Time Provider Department 02/14/21 9:30 AM EVELIA GALLAGHER TXCTGL During your visit today, we recorded the following information about you: KRISHAN Poole 02/16/2021 11:57 AM Signed PSYCHOSOCIAL FACE TIME EVALUATION FOR KIDNEY TRANSPLANT COVID-19 PRECAUTIONS Social Supports: Pt's sister and son have confirmed support. Financial Concerns: Pt has Medicare only with a high monthly premium. She was advised to apply for Medicaid. Compliance: Good compliance reported by [facility] Mental Health: Stable Substance Abuse: Denies SIPAT: 6 REFERRAL: Edita Duggan was referred to Social Work for a psychosocial evaluation to establish if she would be a suitable candidate to receive a kidney transplant. DIALYSIS START DATE: August 2019 She receives dialysis at [facility] in [place], [place] on MWF. Phone is [phone]. The pt does use assistive devices for ambulation. She used a wheelchair today and takes a cane with her wherever she goes. This social work psychosocial evaluation was completed with Edita Duggan on February 14, 2021. She was accompanied by her son, Sedrick Lin. Race/Gender: White female [place] Citizen: Yes IDENTIFYING INFORMATION/LIVING SITUATION Edita Duggan [id number] [address] (physical address is [address] [place] [address] [facility] [address]. The home is about 1.5 hours. Edita Duggan has been living in this home for four years. This is her sister's kgghby-mg-nxa's home. Pt cares for her. Edita Duggan is is independent with all ADL's, except cleaning and shopping. The pt drives and has a working vehicle. Caregiver responsibilities: Petrona Calvilloyuliya, 89 years old. She is usually in a wheelchair. Pt helps her with ADLs. Pets in the home: None TRANSPLANT LODGING PLANS FOR PATIENTS WHO LIVE 2.5 OR MORE HOURS AWAY FROM [facility]: Do you have the financial means to stay in the area for four weeks or more post-transplant? 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 Pt had HTN. She reports that she no longer takes medications because she intentionally lost weight and started dialysis. She reports that she was in the hospital frequently in 2020 because of fluid overload. This continued until [...] $500.000. She plans to f/u with the [employer] for assistance. Have you stopped taking medication because you felt you didn't need it or because of side-effects? No Moral, jehovah's witness, or ethical views about transplants or blood [...] down to 5 beers a year from 2018 to 2019. Tobacco: Quit 20 years ago Exposure to [...] get ri (more content not included)... Normal [facility] CT ABD/PEL WO IVCONon 2020 CT ABD/PEL WO IVCON * * *Final Report* * * DATE OF EXAM: Feb 14 2021 11:28AM [facility] 0531 - CT ABD/PEL WO IVCON / [...] osteopenia. No suspicious lesion. Lower thorax: Unremarkable. Marine Equipment Design Engineer (topogram) images: No additional findings. IMPRESSION: Extensive aortic and iliac arterial calcifications. Kier Boiler: TONIE Transcribe Date/Time: Feb 14 2021 11:48A Dictated by : NIGHAT BRITO MD This examination was interpreted and the report reviewed and electronically signed by: ALYSSA MEDEROS MD on Feb 14 2021 1:44PM EST [id number] [facility] 02-10-2021 CNPN Telephone (TXCTGL) -- EDITA DUGGAN ([id number]) 1950 F TRN Date Time Provider Department 02/10/21 INA LOPEZ TXCTGL During your visit today, [...] Encounter Status:Closed by INA LOPEZ on 02/10/21 [facility] No Panel Informationon 01-26 26.0\S\26.0 Normal 22.0-30.0 -[facility] 250 DO Work Phone: Comment on above: PERFORMED BY:[address] [address] [address] [place], [place] [phone] MEDICAL DIRECTORKATARINA WILKERSON M.D. 92\S\92 below low threshold 95-114 [facility] 250 DO Work Phone: 4.4\S\4.4 Normal 3.5-5.1 -[facility] 250 DO Work Phone: 133\S\133 below low threshold 136-146 [facility] Heart-Ricky diaz 250 DO Work Phone: Laboratory - Microbiology an d Antimicrobial susceptibilityon 01-24-2021 SARS-CoV-2 (COVID-19) RNA MARCO+probe Ql (Unsp spec) [facility] DO Work Phone: No Panel Informationon 01-24 Negative Normal Negative [employer] Keke DO Work Phone: Comment on above: This is a duplicate Lena SARS Antigen (MADALYN) result to be used for statistical tracking purpose only.PERFORMED BY:[address] [address] [address] [place], [place] [phone] MEDICAL DIRECTORKATARINA WILKERSON M.D. Tobacco Screening.on 021 Fall risk assessment a) No falls within the last year [facility] joe Davies DO Work Phone: Tobacco use status CPHS b) No [facility] joe Davies DO Work Phone: CNPNon 12-15-2020 CNPN Telephone (TXCTGL) -- EDITA DUGGAN ([id number]) 1950 F TRN Date Time Provider Department 12/15/20 INA LOPEZ [...] Reviewed Reason for Visit: Return Call Request [0743] Appointment [186] Problem List As Of Date: 12/15/2020 (None) Encounter Status:Closed by INA LOPEZ on 12/15/20 [facility] 09-12-2020 [facility] Telephone (TXCTGL) -- EDITA DUGGAN ([id number]) 1950 F TRN Date Time Provider Department 09/12/20 INA LOPEZ During your visit today, we recorded the following information about you: Ina Lopez 09/12/2020 10:22 AM Signed Called and spoke with patient regarding kidney transplant, intake completed, and to nurse coordinator for review. Ina Lopez Allergies As of Date: 09/12/2020 (Not on File) Date Reviewed: Never Reviewed Reason for Visit: Referral - Kidney Txp [[id number]] Primary Visit Diagnosis:Hypertension, unspecified type [I10] Other Visit Diagnoses:ESRD on dialysis (HCC) [N18.6, Z99.2] Pre-transplant evaluation for ESRD (end stage renal disease) [Z01.818] Order(s):CONSULT TO TRANSPLANT CENTER [[id number]] Order #: [id number]: 1 Problem List As Of Date: 09/12/2020 (None) Encounter Status:Closed by INA LOPEZ on 09/12/20 [facility] EDITA DUGG[facility] ([id number]) 1950 F TRN Date Time Provider Department [...] Of Date: 09/08/2020 (None) Encounter Status:Closed by AVERYACOSTA BOONEISSA on 09/08/20 Normal [facility] CARDIAC STRESS/REST (ANDREW CARDIAL PERFUSION/MIBI)on 12-08-2019 [facility] CARDIAC STRESS/REST (MYOCARDIAL PERFUSION/MIBI) Patient Name: EDITA DUGGAN STUDY: MYOCARDIAL PERFUSION STRESS TEST WITH LEXISCAN Performing facility: [facility], [address] [place] [address], [address], [address] Provider: Marguerite UREÑA PCP: Dr. Teo BYRD Supervising provider: CHARANJIT VORA INDICATION: SOB HISTORY: Gender: F; Age: 69 y/o ; Height: 167.64 cm; Weight: 62.7702640 kg. High Cholesterol; HTN SOB COPD Family HX CAD; AFIB Quit smoking REMOTE years ago. COMPARISON: ACCESSION NUMBER(S): [id number] ORDERING CLINICIAN: LEATHA UREÑA TECHNIQUE: ONE DAY [...] comparison. Electronically signed by: LEATHA UREÑA MD [facility] CARDIAC STRESS/REST INJE CTIONon 12-08-2019 [facility] CARDIAC STRESS/REST INJECTION Patient Name: EDITA DUGGAN STUDY: MYOCARDIAL PERFUSION STRESS TEST WITH LEXISCAN Performing facility: [facility], [address] [place] [address], [address], [address] Provider: Marguerite UREÑA PCP: Dr. Teo BYRD Supervising provider: CHARANJIT VORA INDICATION: SOB HISTORY: Gender: F; Age: 69 y/o ; Height: 167.64 cm; Weight: 62.3097268 kg. High Cholesterol; HTN SOB COPD Family HX CAD; AFIB Quit smoking REMOTE years ago. COMPARISON: ACCESSION NUMBER(S): [id number] ORDERING CLINICIAN: LEATHA UREÑA TECHNIQUE: ONE DAY [...] comparison. Electronically signed by: LEATHA UREÑA MD [facility] PART 2 STRESS OR REST (N O CHARGE)on 12-08-2019 [facility] PART 2 STRESS OR REST (NO CHARGE) Patient Name: EDITA DUGGAN STUDY: MYOCARDIAL PERFUSION STRESS TEST WITH LEXISCAN Performing facility: [facility], [address] [place] [address], [address], [address] Provider: Marguerite UREÑA PCP: Dr. Teo BYRD Supervising provider: CHARANJIT VORA INDICATION: SOB HISTORY: Gender: F; Age: 69 y/o ; Height: 167.64 cm; Weight: 62.8104003 kg. High Cholesterol; HTN SOB COPD Family HX CAD; AFIB Quit smoking REMOTE years ago. COMPARISON: ACCESSION NUMBER(S): [id number] ORDERING CLINICIAN: LEATHA UREÑA TECHNIQUE: ONE DAY [...] comparison. Electronically signed by: LEATHA UREÑA MD [facility] Vital Signs Date Time Vital Sign Value Performing Clinician Facility 03-28-2023 09:45-0500 Body height 167.64 cm Dillon Romanoami Other [facility] Other 03-28-2023 09:45-0500 Body mass index (BMI) [Ratio] 28.24 kg/m2 Dillon Langami Other [facility] Other 03-28-2023 09:45-0500 Body temperature 97.8 [degF] Dillon Steve Other [facility] Other 03-28-2023 09:45-0500 Body weight 79.38 kg Dillon Steve Other [facility] Other 03-28-2023 09:45-0500 Diastolic blood pressure 68 mm[Hg] Dillon Wilson Other [facility] Other 03-28-2023 09:45-0500 SaO2% (BldA) [Mass fraction] 96 % Dillon Wilson Other [facility] Other 03-28-2023 09:45-0500 Systolic blood pressure 118 mm[Hg] Dillon Wilson Other [facility] Other 03-19-2023 16:16-0500 Diastolic blood pressure 52 mm[Hg] II Curtis Byrd Work Phone: [facility] 03-19-2023 16:16-0500 Heart rate 96 /min II Curtis Byrd Work Phone: [facility] 03-19-2023 16:16-0500 Respiratory rate 16 /min II Curtis Byrd Work Phone: [facility] 03-19-2023 16:16-0500 SaO2% (BldA) [Mass fraction] 100 % II Curtis Byrd Work Phone: [facility] 03-19-2023 16:16-0500 Systolic blood pressure 106 mm[Hg] II Curtis Byrd Work Phone: [facility] 03-19-2023 12:55-0500 Body height 167.64 cm II Curtis Byrd Work Phone: [facility] 03-19-2023 12:55-0500 Body weight 79.37 kg II Curtis Byrd Work Phone: [facility] 03-14-2023 12:00-0500 Body height 167.64 cm Dillon Wilson Other [facility] Other 03-14-2023 12:00-0500 Body mass index (BMI) [Ratio] 28.24 kg/m2 Dillon Wilson Other [facility] Other 03-14-2023 12:00-0500 Body temperature 97.8 [degF] Dillon Wilson Other [facility] Other 03-14-2023 12:00-0500 Body weight 79.38 kg Dillon Steve Other [facility] Other 03-14-2023 12:00-0500 Diastolic blood pressure 62 mm[Hg] Dillon Steve Other [facility] Other 03-14-2023 12:00-0500 SaO2% (BldA) [Mass fraction] 98 % Dillon Steve Other [facility] Other 03-14-2023 12:00-0500 Systolic blood pressure 104 mm[Hg] Dillon Wilson Other [facility] Other 11-22-2022 10:30-0400 Body height 167.64 cm Dillon Wilson Other [facility] Other 11-22-2022 10:30-0400 Body mass index (BMI) [Ratio] 28.24 kg/m2 Dillon Wilson Other [facility] Other 11-22-2022 10:30-0400 Body temperature 97.8 [degF] Dillon Wilson Other [facility] Other 11-22-2022 10:30-0400 Body weight 79.38 kg Dillon Steve Other [facility] Other 11-22-2022 10:30-0400 Diastolic blood pressure 67 mm[Hg] Dillon Wilson Other [facility] Other 11-22-2022 10:30-0400 SaO2% (BldA) [Mass fraction] 98 % Dillon Wilson Other [facility] Other 11-22-2022 10:30-0400 Systolic blood pressure 102 mm[Hg] Dillon Wilson Other [facility] Other 11-08-2022 15:08-0400 Diastolic blood pressure 77 mm[Hg] II Curtis Byrd Work Phone: [facility] 11-08-2022 15:08-0400 Heart rate 98 /min II Curtis yBrd Work Phone: [facility] 11-08-2022 15:08-0400 Respiratory rate 16 /min II Curtis Byrd Work Phone: [facility] 11-08-2022 15:08-0400 SaO2% (BldA) [Mass fraction] 98 % II Curtis Byrd Work Phone: [facility] 11-08-2022 15:08-0400 Systolic blood pressure 129 mm[Hg] II Curtis Byrd Work Phone: [facility] 11-08-2022 13:39-0400 Body height 168.91 cm II Curtis Byrd Work Phone: [facility] 11-08-2022 13:39-0400 Body weight 79.37 kg II Curtis Byrd Work Phone: [facility] 10-04-2022 09:45-0400 Body height 167.64 cm Corinne Corrigan Other [facility] Other 10-04-2022 09:45-0400 Body mass index (BMI) [Ratio] 28.24 kg/m2 Corinne Corrigan Other [facility] Other 10-04-2022 09:45-0400 Body temperature 97.8 [degF] Corinne Corrigan Other [facility] Other 10-04-2022 09:45-0400 Body weight 79.38 kg Corinne Corrigan Other [facility] Other 10-04-2022 09:45-0400 Diastolic blood pressure 62 mm[Hg] Corinne Corrigan Other [facility] Other 10-04-2022 09:45-0400 SaO2% (BldA) [Mass fraction] 97 % Corinne Corrigan Other [facility] Other 10-04-2022 09:45-0400 Systolic blood pressure 106 mm[Hg] Corinne Corrigan Other [facility] Other 08-20-2022 08:29-0400 Body height 167.64 cm Curtis Casarez Byrd Work Phone: [facility] 250 DO Work Phone: 08-20-2022 08:29-0400 Body mass index (BMI) [Ratio] 29.54 kg/m2 Curtis Byrd Work Phone: [employer] 250 DO Work Phone: 08-20-2022 08:29-0400 Body surface area Derived from formula 1.93 m2 Curtis Byrd Work Phone: [employer] [facility] 250 DO Work Phone: 08-20-2022 08:29-0400 Body weight 83.01 kg Curtis Byrd Work Phone: [employer] 250 DO Work Phone: 08-20-2022 08:29-0400 Diastolic blood pressure 72 mm[Hg] Curtis Byrd Work Phone: [facility] [employer] 250 DO Work Phone: 08-20-2022 08:29-0400 Heart rate 80 /min Curtis Byrd Work Phone: [facility] 250 DO Work Phone: 08-20-2022 08:29-0400 Systolic blood pressure 120 mm[Hg] Curtis Byrd Work Phone: [facility] 250 DO Work Phone: 07-31-2022 12:40-0400 Diastolic blood pressure 62 mm[Hg] II Curtis Byrd Work Phone: [facility] 07-31-2022 12:40-0400 Heart rate 86 /min II Curtis Byrd Work Phone: [facility] 07-31-2022 12:40-0400 Respiratory rate 16 /min II Curtis Byrd Work Phone: [facility] 07-31-2022 12:40-0400 SaO2% (BldA) [Mass fraction] 95 % II Curtis Byrd Work Phone: [facility] 07-31-2022 12:40-0400 Systolic blood pressure 128 mm[Hg] II Curtis Byrd Work Phone: [facility] 07-31-2022 09:56-0400 Inhaled oxygen flow rate 3 L/min II Curtis Byrd Work Phone: [facility] 07-31-2022 07:12-0400 Body height 167.64 cm II Curtis Byrd Work Phone: [facility] 07-31-2022 07:12-0400 Body weight 80.73 kg II Curtis Byrd Work Phone: [facility] 07-26-2022 09:00-0400 Body height 167.64 cm Dillon Wilson Other [facility] [place] Other 07-26-2022 09:00-0400 Body mass index (BMI) [Ratio] 28.24 kg/m2 Dillon Wilson Other [facility] Other 07-26-2022 09:00-0400 Body temperature 97.3 [degF] Dillon Wilson Other [facility] Other 07-26-2022 09:00-0400 Body weight 79.38 kg Dillon Romanoami Other [facility] Other 07-26-2022 09:00-0400 Diastolic blood pressure 68 mm[Hg] Dillon Romanoami Other [facility] Other 07-26-2022 09:00-0400 SaO2% (BldA) [Mass fraction] 97 % Dillon Romanoami Other [facility] Other 07-26-2022 09:00-0400 Systolic blood pressure 114 mm[Hg] Dillon Wilson Other [facility] Other 06-26-2022 13:58-0400 Diastolic blood pressure 83 mm[Hg] II Curtis Byrd Work Phone: [facility] 06-26-2022 13:58-0400 Heart rate 99 /min II Curtis Byrd Work Phone: [facility] 06-26-2022 13:58-0400 Respiratory rate 16 /min II Curtis Byrd Work Phone: [facility] 06-26-2022 13:58-0400 SaO2% (BldA) [Mass fraction] 94 % II Curtis Byrd Work Phone: [facility] 06-26-2022 13:58-0400 Systolic blood pressure 114 mm[Hg] II Curtis Byrd Work Phone: [facility] 06-26-2022 13:22-0400 Body height 167.64 cm II Curtis Byrd Work Phone: [facility] 06-26-2022 13:22-0400 Body weight 79.37 kg II Curtis Byrd Work Phone: [facility] 06-19-2022 14:00-0400 Body height 167.64 cm Master Senaack Other [facility] Other 06-19-2022 14:00-0400 Body mass index (BMI) [Ratio] 28.24 kg/m2 Master Duggan Other [facility] Other 06-19-2022 14:00-0400 Body weight 79.38 kg Master Bowmanormack Other [facility] Other 03-29-2022 12:45-0500 Body height 167.64 cm Dillon Wilson Other [facility] Other 03-29-2022 12:45-0500 Body mass index (BMI) [Ratio] 28.24 kg/m2 Dillon Wilson Other [facility] Other 03-29-2022 12:45-0500 Body temperature 97.8 [degF] Dillon Wilson Other [facility] Other 03-29-2022 12:45-0500 Body weight 79.38 kg Dillon Wilson Other [facility] Other 03-29-2022 12:45-0500 Diastolic blood pressure 72 mm[Hg] Dillon Wilson Other [facility] Other 03-29-2022 12:45-0500 SaO2% (BldA) [Mass fraction] 96 % Dillon Wilson Other [facility] Other 03-29-2022 12:45-0500 Systolic blood pressure 116 mm[Hg] Dillon Wilson Other [facility] [place] Other 03-20-2022 11:35-0500 Body height 167.64 cm Ozzie Quintero MD Work Phone: [facility] 250 DO Work Phone: 03-20-2022 11:35-0500 Body mass index (BMI) [Ratio] 28.89 kg/m2 Ozzie Quintero MD Work Phone: [facility] [facility] DO Work Phone: 03-20-2022 11:35-0500 Body surface area Derived from formula 1.91 m2 Ozzie Quintero MD Work Phone: [facility] DO Work Phone: 03-20-2022 11:35-0500 Body weight 81.19 kg Ozzie Quintero MD Work Phone: [facility] 250 DO Work Phone: 03-20-2022 11:35-0500 Diastolic blood pressure 72 mm[Hg] Ozzie Quintero MD Work Phone: [facility] 250 DO Work Phone: 03-20-2022 11:35-0500 Heart rate 62 /min Ozzie Quintero MD Work Phone: [facility] 250 DO Work Phone: 03-20-2022 11:35-0500 Systolic blood pressure 128 mm[Hg] Ozzie Quintero MD Work Phone: [facility] 250 DO Work Phone: 03-07-2022 18:10-0500 Respiratory rate 16 /min EDUARDO Byrd Work Phone: [facility] 03-07-2022 18:10-0500 SaO2% (BldA) [Mass fraction] 100 % II Curtis Byrd Work Phone: [facility] 03-07-2022 17:51-0500 Body temperature 97.7 [degF] II Curtis Byrd Work Phone: [facility] 03-07-2022 17:51-0500 Diastolic blood pressure 60 mm[Hg] II Curtis Byrd Work Phone: [facility] 03-07-2022 17:51-0500 Heart rate 100 /min II Curtis Byrd Work Phone: [facility] 03-07-2022 17:51-0500 Systolic blood pressure 105 mm[Hg] II Curtis Byrd Work Phone: [facility] 03-06-2022 22:51-0500 Body height 167.64 cm II Curtis Byrd Work Phone: [facility] 03-06-2022 22:51-0500 Body weight 79.38 kg II Curtis Byrd Work Phone: [facility] 02-15-2022 11:45-0500 Body height 167.64 cm Corinne Corrigan Other [facility] Other 02-15-2022 11:45-0500 Body mass index (BMI) [Ratio] 27.76 kg/m2 Corinne Corrigan Other [facility] Other 02-15-2022 11:45-0500 Body temperature 97.8 [degF] Corinne Corrigan Other [facility] Other 02-15-2022 11:45-0500 Body weight 78.02 kg Corinne Corrigan Other [facility] Other 12-22-2022 11:45-0500 Diastolic blood pressure 50 mm[Hg] Corinne Corrigan Other [facility] Other 02-15-2022 11:45-0500 SaO2% (BldA) [Mass fraction] 91 % Corinne Corrigan Other [facility] Other 02-15-2022 11:45-0500 Systolic blood pressure 98 mm[Hg] Corinne Corrigan Other [facility] Other 01-25-2022 11:15-0500 Body height 167.64 cm Dillon Wilson Other [facility] Other 01-25-2022 11:15-0500 Body mass index (BMI) [Ratio] 27.76 kg/m2 Dillon Wilson Other [facility] Other 01-25-2022 11:15-0500 Body temperature 98.7 [degF] Dillon Wilson Other [facility] Other 01-25-2022 11:15-0500 Body weight 78.02 kg Dillon Wilson Other [facility] Other 01-25-2022 11:15-0500 Diastolic blood pressure 68 mm[Hg] Dillon Wilson Other [facility] Other 01-25-2022 11:15-0500 SaO2% (BldA) [Mass fraction] 99 % Dillon Wilson Other [facility] Other 01-25-2022 11:15-0500 Systolic blood pressure 110 mm[Hg] Dillon Wilson Other [facility] Other 09-21-2021 15:38-0400 Diastolic blood pressure 64 mm[Hg] II Curtis Byrd Work Phone: [facility] 09-21-2021 15:38-0400 Heart rate 95 /min II Curtis Byrd Work Phone: [facility] 09-21-2021 15:38-0400 Respiratory rate 17 /min II Curtis Byrd Work Phone: [facility] 09-21-2021 15:38-0400 SaO2% (BldA) [Mass fraction] 98 % II Curtis Byrd Work Phone: [facility] 09-21-2021 15:38-0400 Systolic blood pressure 138 mm[Hg] II Curtis Byrd Work Phone: [facility] 09-21-2021 12:49-0400 Body height 168.91 cm II Curtis Byrd Work Phone: [facility] 09-21-2021 12:49-0400 Body weight 61.23 kg II Curtis Byrd Work Phone: [facility] 08-30-2021 09:30-0400 Body height 167.64 cm Corinne Corrigan Other [facility] Other 08-30-2021 09:30-0400 Body mass index (BMI) [Ratio] 27.76 kg/m2 Corinne Corrigan Other [facility] Other 08-30-2021 09:30-0400 Body temperature 96.1 [degF] Corinne Corrigan Other [facility] Other 08-30-2021 09:30-0400 Body weight 78.02 kg Corinne Corrigan Other [facility] Other 08-30-2021 09:30-0400 Diastolic blood pressure 60 mm[Hg] Corinne Tabareso Other [facility] Other 08-30-2021 09:30-0400 SaO2% (BldA) [Mass fraction] 97 % Corinne Tabareso Other [facility] Other 08-30-2021 09:30-0400 Systolic blood pressure 92 mm[Hg] Corinne Corrigan Other [facility] Other 08-24-2021 13:30-0400 Body height 167.64 cm Corinne Corrigan Other [facility] Other 08-24-2021 13:30-0400 Body mass index (BMI) [Ratio] 27.76 kg/m2 Corinne Corrigan Other [facility] Other 08-24-2021 13:30-0400 Body temperature 96.4 [degF] Corinne Corrigan Other [facility] Other 08-24-2021 13:30-0400 Body weight 78.02 kg Corinne Corrigan Other [facility] Other 08-24-2021 13:30-0400 Diastolic blood pressure 64 mm[Hg] Corinne Tabareso Other [facility] Other 08-24-2021 13:30-0400 SaO2% (BldA) [Mass fraction] 96 % Corinne Tabareso Other [facility] Other 08-24-2021 13:30-0400 Systolic blood pressure 102 mm[Hg] Corinne Novakarchieo Other [facility] Other 07-18-2021 12:23-0400 Body height 168.91 cm Ozzie Quintero MD Work Phone: [facility] 250 DO Work Phone: 07-18-2021 12:23-0400 Body mass index (BMI) [Ratio] 28.3 kg/m2 Ozzie Quintero MD Work Phone: [facility] 250 DO Work Phone: 07-18-2021 12:23-0400 Body surface area Derived from formula 1.91 m2 Ozzie Quintero MD Work Phone: [facility] 250 DO Work Phone: 07-18-2021 12:23-0400 Body weight 80.74 kg Ozzie Quintero MD Work Phone: [facility] 250 DO Work Phone: 07-18-2021 12:23-0400 Diastolic blood pressure 74 mm[Hg] Ozzie Quintero MD Work Phone: [facility] 250 DO Work Phone: 07-18-2021 12:23-0400 Heart rate 88 /min Ozzie Quintero MD Work Phone: [facility] 250 DO Work Phone: 07-18-2021 12:23-0400 Systolic blood pressure 114 mm[Hg] Ozzie Quintero MD Work Phone: [facility] 250 DO Work Phone: 06-22-2021 11:45-0400 Body height 167.64 cm Corinne Corrigan Other [facility] Other 06-22-2021 11:45-0400 Body mass index (BMI) [Ratio] 27.76 kg/m2 Corinne Corrigan Other [facility] Other 06-22-2021 11:45-0400 Body weight 78.02 kg Corinne Corrigan Other [facility] Other 06-22-2021 11:45-0400 Diastolic blood pressure 52 mm[Hg] Corinne Corrigan Other [facility] Other 06-22-2021 11:45-0400 Respiratory rate 16 /min Corinne Corrigan Other [facility] Other 06-22-2021 11:45-0400 SaO2% (BldA) [Mass fraction] 98 % Corinne Corrigan Other [facility] Other 06-22-2021 11:45-0400 Systolic blood pressure 100 mm[Hg] Corinne Corrigan Other [facility] Other 06-15-2021 14:00-0400 Body height 167.64 cm Master Duggan Other [facility] Other 06-15-2021 14:00-0400 Body mass index (BMI) [Ratio] 27.6 kg/m2 Master Duggan Other [facility] Other 06-15-2021 14:00-0400 Body weight 77.57 kg Master Duggan Other [facility] Other 04-04-2021 11:18-0500 Body height 168.91 cm Ozzie Quintero MD Work Phone: [place] [address] DO Work Phone: 04-04-2021 11:18-0500 Body mass index (BMI) [Ratio] 27.5 kg/m2 Ozzie Quintero MD Work Phone: [facility] 250 DO Work Phone: 04-04-2021 11:18-0500 Body surface area Derived from formula 1.89 m2 Ozzie Quintero MD Work Phone: [facility] 250 DO Work Phone: 04-04-2021 11:18-0500 Body weight 78.47 kg Ozzie Quintero MD Work Phone: [facility] 250 DO Work Phone: 04-04-2021 11:18-0500 Diastolic blood pressure 52 mm[Hg] Ozzie Quintero MD Work Phone: [facility] 250 DO Work Phone: 04-04-2021 11:18-0500 Heart rate 86 /min Ozzie Quintero MD Work Phone: [facility] 250 DO Work Phone: 04-04-2021 11:18-0500 Systolic blood pressure 125 mm[Hg] Ozzie Quintero MD Work Phone: [facility] 250 DO Work Phone: 03-16-2021 12:30-0500 Body height 167.64 cm Dillon Wilson Other [facility] Other 03-16-2021 12:30-0500 Body mass index (BMI) [Ratio] 27.11 kg/m2 Dillon Wilson Other [facility] Other 03-16-2021 12:30-0500 Body temperature 97.9 [degF] Dillon Wilson Other [facility] Other 03-16-2021 12:30-0500 Body weight 76.2 kg Dillon Steve Other [facility] Other 03-16-2021 12:30-0500 Diastolic blood pressure 60 mm[Hg] Dillon Wilson Other [facility] Other 03-16-2021 12:30-0500 SaO2% (BldA) [Mass fraction] 99 % Dillon Wilson Other [facility] Other 03-16-2021 12:30-0500 Systolic blood pressure 110 mm[Hg] Dillon Wilson Other [facility] Other 02-09-2021 12:00-0500 Body height 167.64 cm Dillon Wilson Other [facility] Other 02-09-2021 12:00-0500 Body mass index (BMI) [Ratio] 27.11 kg/m2 Diloln Wilson Other [facility] Other 02-09-2021 12:00-0500 Body temperature 98.1 [degF] Dillon Wilson Other [facility] Other 02-09-2021 12:00-0500 Body weight 76.2 kg Dillon Wilson Other [facility] Other 02-09-2021 12:00-0500 SaO2% (BldA) [Mass fraction] 97 % Dillon Wilson Other [facility] Other 01-05-2021 14:24-0500 Body height 168.91 cm Ozzie Quintero MD Work Phone: [facility] 250 DO Work Phone: 01-05-2021 14:24-0500 Body mass index (BMI) [Ratio] 26.87 kg/m2 Ozzie Quinteor MD Work Phone: [facility] 250 DO Work Phone: 01-05-2021 14:24-0500 Body surface area Derived from formula 1.87 m2 Ozzie Quintero MD Work Phone: [facility] 250 DO Work Phone: 01-05-2021 14:24-0500 Body weight 76.66 kg Ozzie Quintero MD Work Phone: [facility] 250 DO Work Phone: 01-05-2021 14:24-0500 Diastolic blood pressure 68 mm[Hg] Ozzie Quintero MD Work Phone: [facility] 250 DO Work Phone: 01-05-2021 14:24-0500 Heart rate 80 /min Ozzie Quintero MD Work Phone: [facility] 250 DO Work Phone: 01-05-2021 14:24-0500 Systolic blood pressure 110 mm[Hg] Ozzie Quintero MD Work Phone: [facility] 250 DO Work Phone: 11-24-2020 12:45-0400 Body height 167.64 cm Dillon Wilson Other [facility] Other 11-24-2020 12:45-0400 Body mass index (BMI) [Ratio] 26.63 kg/m2 Dillon Wilson Other [facility] Other 11-24-2020 12:45-0400 Body weight 74.84 kg Dillon Wilson Other [facility] Other 11-24-2020 12:45-0400 Diastolic blood pressure 62 mm[Hg] Dillon Wilson Other [facility] Other 11-24-2020 12:45-0400 Systolic blood pressure 118 mm[Hg] Dillon Wilson Other [facility] Other Encounters Encounter Date Encounter Type Care Provider Facility Start: 03-28-2023 Office outpatient visit 15 minutes Dillon Wilson [facility] Start: 03-28-2023 End: 03-28-2023 ambulatory Curtis Byrd Facility:[facility] Start: 03-28-2023 End: 03-28-2023 ambulatory II Curtis Byrd Work Phone: [facility] Other Start: 03-28-2023 End: 03-28-2023 Patient encounter procedure II Curtis Byrd Work Phone: [facility]-Ultrasound [facility] Start: 03-19-2023 End: 03-19-2023 ambulatory Curtis Byrd Facility:[facility] Start: 03-19-2023 Non-patient / Non-visit II Curtis Byrd Work Phone: [facility] Work Phone: Start: 03-14-2023 Office outpatient visit 15 minutes Dillon Wilson [facility] Start: 03-14-2023 End: 03-14-2023 ambulatory Dillon Wilson Facility:[facility] Start: 03-14-2023 End: 03-14-2023 ambulatory II Curtis Byrd Work Phone: [facility] Work Phone: Start: 03-14-2023 End: 03-14-2023 Patient encounter procedure II Curtis Byrd Work Phone: [facility]-Ultrasound [facility] Start: 02-28-2023 End: 02-28-2023 ambulatory CURTIS BYRD Not Available Start: 11-28-2022 End: 11-28-2022 ambulatory Dillon Wilson Other [facility] Other Start: 11-28-2022 Telephone encounter Dillon reyes [facility] Start: 11-22-2022 Office outpatient visit 25 minutes Dillon Wilson [facility] Start: 11-22-2022 End: 11-22-2022 ambulatory Corinne Corrigan Facility:[facility] Start: 11-22-2022 End: 11-22-2022 ambulatory II Curtis Byrd Work Phone: [facility] [place] Other Start: 11-22-2022 End: 11-22-2022 Patient encounter procedure II Curtis Byrd Work Phone: [facility]-Ultrasound [facility] Start: 11-08-2022 End: 11-08-2022 ambulatory Curtis Byrd Facility:[facility] Start: 11-08-2022 End: 11-08-2022 Admission to same day surgery center II Curtis Byrd Work Phone: [facility]-Interventional Radiology Work Phone: Start: 11-08-2022 End: 11-08-2022 ambulatory II Curtis Byrd Work Phone: [facility] Work Phone: Start: 10-04-2022 End: 10-04-2022 ambulatory Corinne Corrigan Other [facility] Other Start: 10-04-2022 Patient encounter procedure Corinne Corrigan [facility] Start: 08-20-2022 Office outpatient visit 25 minutes Curtis Byrd Work Phone: [facility] 250 DO Work Phone: Start: 08-20-2022 ambulatory Ozzie Hauser y: Start: 07-31-2022 End: 07-31-2022 ambulatory Dillon Wilson Facility:[facility] Start: 07-31-2022 End: 07-31-2022 Admission to same day surgery center II Curtis Byrd Work Phone: [facility]-Interventional Radiology Work Phone: Start: 07-31-2022 End: 07-31-2022 ambulatory II Curtis Byrd Work Phone: [facility] Work Phone: Start: 07-26-2022 Office outpatient visit 25 minutes Dillon Wilson [facility] Start: 07-26-2022 End: 07-26-2022 ambulatory II Curtis Byrd Work Phone: [facility] Other Start: 07-26-2022 End: 07-26-2022 Patient encounter procedure II Curtis Byrd Work Phone: [facility]-Ultrasound [facility] Start: 07-13-2022 End: 07-13-2022 ambulatory ERICKA WALLACE Facility:[facility] Start: 06-26-2022 End: 06-26-2022 ambulatory Curtis Byrd Facility:[facility] Start: 06-26-2022 End: 06-26-2022 Admission to same day surgery center II Curtis Byrd Work Phone: [facility]-Interventional Radiology Work Phone: Start: 06-25-2022 End: 07-25-2022 ambulatory SHAIKH Ivonne ATKINSON Facility:[facility] Start: 06-19-2022 End: 06-19-2022 ambulatory Master Duggan Other [facility] Other Start: 06-19-2022 Office outpatient visit 15 minutes Master Duggan [facility] Start: 06-04-2022 End: 06-04-[address] RAYNA STAPLETON Facility:[facility] Start: 06-01-2022 End: 06-01-2022 ambulatory AZRADHA BAKHOUS Facility:[facility] Start: 05-28-2022 End: 06-22-2022 ambulatory BRADEN H FAMinervaWAD Facility:[facility] Start: 04-25-2022 End: 05-25-2022 ambulatory BRADEN H HUSSAINWAD Facility:[facility] Start: 03-29-2022 End: 03-29-2022 ambulatory Dillon Wilson Other [facility] Other Start: 03-29-2022 Office outpatient visit 10 minutes Dillon Wilson [facility] Vascular Surgery Start: 03-28-2022 End: 04-25-2022 ambulatory BRADEN H FAMinervaWAD Facility:[facility] Start: 03-20-2022 Office outpatient visit 25 minutes Ozzie Quintero MD Work Phone: [facility]-[place] 250 DO Work Phone: Start: 03-20-2022 ambulatory Ozzie Quintero Facilit y: Start: 03-08-2022 Rx Renewal Ozzie pinto MD Work Phone: [facility] 250 DO Work Phone: Start: 03-06-2022 End: 03-07-2022 Evaluation and management of inpatient II Curtis Byrd Work Phone: [facility] [place] [facility] Work Phone: Start: 03-06-2022 End: 03-07-2022 observation encounter II Curtis Byrd Work Phone: [facility] Work Phone: Start: 02-26-2022 End: 03-28-2022 ambulatory SHAIKH Ivonne PATED Facility:[facility] Start: 02-15-2022 End: 02-15-2022 ambulatory Corinne Corrigan Other [facility] Other Start: 02-15-2022 Patient encounter procedure Corinne Corrigan [facility] Start: 01-25-2022 Office outpatient visit 15 minutes Dillon Wilson [facility] Vascular Surgery Start: 01-25-2022 End: 01-25-2022 Patient encounter procedure II Curtis Byrd Work Phone: [facility]-Ultrasound [facility] [place] Start: 01-25-2022 End: 02-25-2022 ambulatory II Curtis Byrd Work Phone: [facility] Other Start: 12-26-2021 End: 01-24-2022 ambulatory BRADEN H FAWWAD Facility:[facility] Start: 11-26-2021 End: 12-25-2021 ambulatory BRADEN H FAWWAD Facility:[facility] Start: 10-26-2021 End: 11-25-2021 ambulatory BRADEN H FAWWAD Facility:[facility] Start: 09-25-2021 End: 10-25-2021 ambulatory BRADEN H FAWWAD Facility:[facility] Start: 09-21-2021 End: 09-21-2021 Admission to same day surgery center II Curtis Byrd Work Phone: [facility]-Interventional Radiology Start: 08-30-2021 End: 08-30-2021 ambulatory Corinne Corrigan Other [facility] Other Start: 08-30-2021 End: 08-30-2021 Patient encounter procedure Corinne HICKS [facility] Start: 08-29-2021 End: 08-29-2021 ambulatory YOSELYN WOODARD Facility:[facility] Start: 08-28-2021 End: 08-28-[address] STORM LINN . Facility:[facility] Start: 08-25-2021 End: 09-22-2021 ambulatory BRADEN H FAWWAD Facility:[facility] Start: 08-24-2021 End: 08-24-2021 ambulatory Corinne Corrigan Other [facility] Other Start: 08-24-2021 Follow-up encounter Corinne Peterson [facility] Start: 07-18-2021 Office outpatient visit 25 minutes Ozzie Quintero MD Work Phone: [facility] [address] DO Work Phone: Start: 06-22-2021 End: 06-22-2021 ambulatory Corinne Corrigan Other [facility] Other Start: 06-22-2021 Office outpatient visit 40 minutes Corinne Tabaresjuliet [facility] Vascular Surgery Start: 06-20-2021 Telephone encounter Ozzie Veloz MD Work Phone: [facility] 250 DO Work Phone: Start: 06-15-2021 End: 06-15-2021 ambulatory Master Duggan Other [facility] Other Start: 06-15-2021 Office outpatient visit 15 minutes Master Duggan [facility] Gastroenterology Start: 06-06-2021 Telephone encounter Ozzie Veloz MD Work Phone: [facility] 250 DO Work Phone: Start: 05-30-2021 Patient encounter procedure [id number] 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 Work Phone: [facility] 250 DO Work Phone: Start: 04-04-2021 Office outpatient visit 25 minutes Ozzie Quintero MD Work Phone: [facility] 250 DO Work Phone: Start: 04-04-2021 Patient encounter procedure Ozzie Quintero MD Work Phone: [facility] 250 DO Work Phone: Start: 03-16-2021 End: 03-16-2021 ambulatory Dillon Wilson Other [facility] Other Start: 03-16-2021 Office outpatient visit 15 minutes Dillon Wilson [facility] Vascular Surgery Start: 03-02-2021 Rx Renewal Ozzie pinto MD Work Phone: [facility] 250 DO Work Phone: Start: 02-16-2021 Patient encounter procedure Ozzie Quintero MD Work Phone: [facility] 250 DO Work Phone: Start: 02-09-2021 End: 02-09-2021 ambulatory Dillon Steve Other [facility] Other Start: 02-09-2021 Office outpatient visit 25 minutes Dillon Wilson [facility] Vascular Surgery Start: 01-27-2021 Chart Update Ozzie pinto MD Work Phone: [facility] 250 DO Work Phone: [facility]: [facility] Ozzie Quintero, Status: Pen, Time: 2:00 PM Ozzie Quintero MD Work Phone: [facility] 250 DO Work Phone: Start: 01-25-2021 Chart Update Ozzie pinto MD Work Phone: [facility] 250 DO Work Phone: Start: 01-05-2021 Office outpatient visit 25 minutes Ozzie Quintero MD Work Phone: [facility] 250 DO Work Phone: Start: 01-05-2021 Patient encounter procedure Ozzie Quintero MD Work Phone: [facility] 250 DO Work Phone: Start: 11-24-2020 Office outpatient visit 25 minutes Dillon Wilson [facility] Vascular Surgery Procedures Date Procedure Procedure Detail [...] on above: August2019; Vascular surgery procedure Minerva yoni Quintero MD Work Phone: Plan of Treatment Date Care Activity Detail Author Start: 04-30-2023 FUV, Provider: Ozzie Quintero, Status: Pen, Time: 9:20 AM FUV, Provider: Ozzie Quintero, Status: Pen, Time: 9:20 AM -[facility] 250 DO Work Phone: Start: 03-19-2023 [facility] Start: 03-14-2023 Ultrasonography of arteriovenous fistula US AV Fistula [facility] Start: 03-14-2023 US AV fistula [facility] Start: 11-08-2022 [facility] Start: 07-31-2022 [facility] Start: 06-26-2022 [facility] Start: 03-20-2022 FUV, Provider: Ozzie Quintero, Status: Pen, Time: 11:20 AM FUV, Provider: Ozzie Quintero, Status: Pen, Time: 11:20 AM [facility] 250 DO Work Phone: Start: 03-07-2022 [facility] Start: 10-26-2021 Ankle brachial pressure index US ankle/arm indices [facility] Start: 10-26-2021 Patient encounter procedure Registered Clinical [facility]-Ultrasound [place] Start: 09-21-2021 [facility] Work Phone: Start: 07-18-2021 FUV, Provider: Ozzie Quintero, Status: Pen, Time: 11:30 AM FUV, Provider: Ozzie Quintero, Status: Pen, Time: 11:30 AM -[facility] 250 DO Work Phone: Start: 04-05-2022 HOLTER MON, Provider: BRENT RIGGS 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 1,[id number], Status: Pen, Time: 2:30 PM HOLTER MON, Provider: BRENT RIGGS [employer]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 1,[id number], Status: Pen, Time: 2:30 PM [facility] 250 DO Work Phone: Start: 04-04-2021 FUV, Provider: Ozzie Quintero, Status: Pen, Time: 10:50 AM FUV, Provider: Ozzie Quintero, Status: Pen, Time: 10:50 AM [facility] 250 DO Work Phone: Start: 01-26-2021 SURGNONUH, Provider: Ozzie Quintero, Status: Pen, Time: 2:00 PM SUR[facility]ON[facility], Provider: Ozzie Quintero, Status: Pen, Time: 2:00 PM [facility] 250 DO Work Phone: Patient Education [facility] Work Phone: Patient referral [facility] Work Phone: Immunizations Immunization Date Immunization Notes Care Provider Juliana braswell 03-31-2022 Pfizer COVID-19 Vac Bivalent 30 MCG/0.3ML Intramuscular Suspension Curtis Byrd Work Phone: [facility]-[place] 250 DO Work Phone: 07-15-2021 Comirnaty 30 MCG/0.3 ML Intramuscular Suspension Ozzie Quintero MD Work Phone: [facility]-[place] 250 DO Work Phone: 07-15-2021 Pfizer-BioNTech COVI D-19 Vacc 30 MCG/0.3ML Intramuscular Suspension Ozzie Quintero MD Work Phone: [facility] Comment on above: Series: 01-07-2021 Pfizer-BioNTech COVI D-19 Vacc 30 MCG/0.3ML Intramuscular Suspension Ozzie Quintero MD Work Phone: [facility] Comment on above: Series: 05-11-2020 Pfizer-BioNTech COVI D-19 Vacc 30 MCG/0.3ML Intramuscular Suspension Ozzie Quintero MD Work Phone: [facility] 04-20-2020 Pfizer-BioNTech COVI D-19 Vacc 30 MCG/0.3ML Intramuscular Suspension Ozzie Quintero MD Work Phone: [facility] 05-08-2019 pneumococcal polysaccharide vaccine, 23 valhung Quintero MD Work Phone: [facility] 250 DO Work Phone: 02-25-2019 pneumococcal conjuga te vaccine, 13 valhung Quintero MD Work Phone: [facility] 250 DO Work Phone: Payers Date Payer Category Payer Medicare [id number] [id number] [id number] 1957 Unknown [id number] 1950 Unknown [id number] 1950 Unknown [id number] 0.1.332606.3.579.2.593 1950 Unknown [id number] 2.16.84 0.1.491049.3.579.2.593 1950 Unknown [id number] 2.16.84 0.1.322787.3.579.2.593 1950 Unknown [id number] 2.16.84 0.1.425937.3.579.2.593 1950 Unknown [id number] 2.16.84 0.1.285786.3.579.2.593 1952 Unknown [id number] 2.16.84 0.1.108057.3.579.2.593 1952 Unknown [id number] 2.16.84 0.1.405406.3.579.2.593 1950 Unknown [id number] 2.16.84 0.1.319169.3.579.2.593 1952 Unknown [id number] 2.16.84 0.1.628882.3.579.2.593 1952 Unknown [id number] 2.16.84 0.1.255000.3.579.2.593 1952 Unknown [id number] 2.16.84 0.1.954123.3.579.2.593 1952 Unknown [id number] 2.16.84 0.1.076752.3.579.2.593 1952 Unknown [id number] 2.16.84 0.1.934208.3.579.2.593 1952 Unknown [id number] 2.16.84 0.1.690008.3.579.2.593 1952 Unknown [id number] 2.16.84 0.1.810084.3.579.2.593 1952 Unknown [id number] 2.16. 840.1.200798.3.579.2.356 1950 Unknown [id number] 2.16. 840.1.624478.3.579.2.356 1950 Unknown [id number] 2.16.840 .1.822324.3.579.2.1259 Medicaid Medicaid [id number] 18 [id number] Self-pay Self Pay [id number] Unknown Social History Date Type Detail Facility No alcohol use No alcohol use [facility] DO Work Phone: Comment on above: Coffee 1 cup daily; quit 2000; Sex Assigned At Sex Assigned At [facility] Other Start: 09-21-2021 End: 07-03-2022 Tobacco smoking status NHIS Ex-smoker (finding) [facility] Start: 1950 Sex Assigned At Female F [facility] Medical Equipment Procedure Code Equipment Code Equipment Origin al Text Equipment Identifier Dates Fluoroscopic guidance for insertion of tunnelled dialysis catheter [id number] FDA Start: 09-08-2019 Fluoroscopic guidance for insertion of tunnelled dialysis catheter [id number] FDA Start: 09-08-2019 Fluoroscopic guidance for insertion of tunnelled dialysis catheter [id number] FDA Start: 09-08-2019 Fluoroscopic guidance for insertion of tunnelled dialysis catheter [id number] FDA Start: 09-08-2019 Fluoroscopic guidance for insertion of tunnelled dialysis catheter [id number] FDA Start: 09-08-2019 Fluoroscopic guidance for insertion of tunnelled dialysis catheter [id number] FDA Start: 09-08-2019 Fluoroscopic guidance for insertion of tunnelled dialysis catheter [id number] FDA Start: 09-08-2019 Fluoroscopic guidance for insertion of tunnelled dialysis catheter [id number] FDA Start: 09-08-2019 Fluoroscopic guidance for insertion of tunnelled dialysis catheter [id number] FDA Start: 09-08-2019 Fistulogram Non-neurovascula r embolization coil ()[id number] FDA Start: 06-23-2020 Fistulogram Non-neurovascula r embolization coil [id number] FDA Start: 06-23-2020 Fistulogram Non-neurovascula r embolization coil [id number] FDA Start: 06-23-2020 Fistulogram Non-neurovascula r embolization coil ()[id number] FDA Start: 06-23-2020 Capsule endoscopy, for patency of lumen evaluation Video capsule endoscopy system ()[id number] FDA Start: 10-08-2019 Capsule endoscopy, for patency of lumen evaluation Video capsule endoscopy system ()[id number] FDA Start: 06-05-2021 Synthetic vascul ar graft ()[id number])[id number] FDA Start: 03-29-2020 Cardiovascular p atch, animal-derived ()[id number] FDA Start: 03-29-2020 Goals Date Patient Goal Desired Activity /State Functional Status Date Assessment Result Facility 03-07-2022 Functional status Patient at Baseline [facility] Work Phone: Mental Status Date Assessment Result Facility 03-07-2022 Cognitive function Cognitive Sta tus Patient at Baseline [facility] Work Phone: Clinical Notes 01-24-2007 to 03-28-2023 Note Date & Type Note Facility 03-28-2023 Evaluation note Encounter Date Diagnosis Assessment Notes Mar, Peripheral arterial occlusive disease (ICD-10 - I77.9) Today's visit was concentrated on her PAD and more specifically, the status of her left leg bypass. The bypass is patent. There is no significant findings on duplex today. We will repeat the study in 6 months. She is due for the second portion of her staged approach to her fistula stenoses. Will see her next week for that. All her questions were addressed. She understands agrees with plan. Mar, AV fistula (ICD-10 - I77.0) Mar, Dependence on renal dialysis (ICD-10 - Z99.2) Mar, End stage renal disease (ICD-10 - N18.6) [facility] 01-18-2024 Evaluation note* Encounter Date Diagnosis Assessment Notes Treatment Notes Treatment Clinical Notes Feb, End stage renal disease (ICD-10 - N18.6) Feb, AV fistula (ICD-10 - I77.0) Feb, Dependence on renal dialysis (ICD-10 - Z99.2) Feb, Arteriovenous fistul a stenosis, 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 She is very familiar with this procedure. Will schedule this in the near future. The meantime she can continue use the AV fistula. [facility] 09-28-2023 Evaluation note* Encounter Date Diagnosis [...] today. I will try to contact her family services specialist in the access center. I think this [...] decrease the incidence of failure and/or dysfunction. [facility] 09-14-2023 [facility]* Encounter Date Diagnosis Assessment [...] the future for maintenance of her access. [facility]* Encounter Date Diagnosis Assessment Notes [...] previously. She was successfully angioplastied in the [employer] [facility] [employer] [facility]. We will need to schedule this next week for fistula salvage. She is at risk of losing the fistula. She understands agrees with plan all her questions were addressed. She is very familiar with this procedure. We will plan this next week. She still is able to dialyze albeit at lower rates. [facility] 04-25-2023 Evaluation note* Encounter Date Diagnosis Assessment Notes Treatment Notes Treatment Clinical Notes May, Iron deficiency anemia (ICD-10 - D50.9) Patient had recent labs at the dialysis center in [facility]. Results will be requested Patient states her results have been good when checked at the time of dialysis & she is not taking iron therapy at this time. Retrun visit here prn [facility] 02-02-2023 Evaluation note* Encounter Date Diagnosis Assessment Notes Treatment Notes Treatment Clinical Notes Mar, AV fistula (ICD-10 - I77.0) Patient's right arm AV fistula is working very well. I will see her as needed in the future. Patient understands agrees the plan all her questions were addressed. [facility] 01-11-2023 Discharge summary Author Corinne Corrigan [facility] March 07, 2022 4:33pm Note Date/Time March 07, 2022 4 :33pm [facility] [address] [place] [address] Discharge Summary Signed Patient: Edita Duggan MR# : [id number] : 1950 Acct:[id number] Age/Sex: 71 / F Adm Date: 3 Loc: Room: [address] [place] [address]: Dillon Wilson MD Copies to: [...] Documented By: Corinne Corrigan APRN 03/07/22 1 882 Signed By: <Electronically signed by CANDY Corrigan> 03/07/22 1633 [facility] Work Phone: 1(216) 418-185501-11-2023 Progress note Author Dillon Wilson [facility] March 08, 2022 2:46pm Note Date/Time March 07, 2022 2 :58pm [facility] [address] [place] [address] Vascular Surgery Progress Note Signed Patient: Edita Duggan MR# : [id number] : 1950 Acct:[id number] Age/Sex: 71 / F Adm Date: 3 Loc: Room: [address] [place] [address] Type: DIS INOo Attending Dr: Dillon Wilson [...] repaired. 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 Const General: [...] <Electronically signed by CANDY Corrigan> 03/07/22 1458 [facility] Work Phone: 1(938) 885-459001-11-2023 Procedure [facility]12-22-2022 Evaluation note* Encounter Date Diagnosis Assessment Notes [...] Dependence on renal dialysis (ICD-10 - Z99.2) [facility] 12-01-2022 Evaluation note* Encounter Date Diagnosis [...] any questions or concerns in the meantime. [facility] 07-28-2022 Procedure [facility]07-06-2022 Evaluation note* Encounter Date Diagnosis Assessment Notes [...] Dependence on renal dialysis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
== END 2023-04-01 13:19 | disposition home or self-care (01) ==
LOC: LAB 13:18
PROVIDERS: PCP Internal Medicine; Visit Provider Internal Medicine Nephrology
DX: E87.5 Hyperkalemia (principal); N18.9 Chronic kidney disease, unspecified
CPT/HCPCS: 36415; 84132

== ENCOUNTER 2023-04-26 03:34 | Outpatient (RCR) | payer MEDICARE, OTHER, SELFPAY | END 2023-05-24 14:12 | disposition home or self-care (01) | LOC: MM 03:34 | PROVIDERS: PCP Internal Medicine; Visit Provider Internal Medicine | DX: Z51.81 Encounter for therapeutic drug level monitoring (principal); Z79.01 Long term (current) use of anticoagulants; I48.20 Chronic atrial fibrillation, unspecified | CPT/HCPCS: 85610; G0463 ==

== ENCOUNTER 2023-05-27 03:22 | Outpatient (RCR) | payer MEDICARE, OTHER, SELFPAY | END 2023-06-25 18:13 | disposition home or self-care (01) | LOC: MM 03:22 | PROVIDERS: PCP Internal Medicine; Visit Provider Internal Medicine | DX: Z51.81 Encounter for therapeutic drug level monitoring (principal); Z79.01 Long term (current) use of anticoagulants; I48.20 Chronic atrial fibrillation, unspecified ==

== ENCOUNTER 2023-06-26 00:30 | Outpatient (RCR) | payer MEDICARE, OTHER, SELFPAY | END 2023-07-26 11:31 | disposition home or self-care (01) | LOC: MM 00:30 | PROVIDERS: PCP Internal Medicine; Visit Provider Internal Medicine | DX: Z51.81 Encounter for therapeutic drug level monitoring (principal); Z79.01 Long term (current) use of anticoagulants; I48.20 Chronic atrial fibrillation, unspecified | CPT/HCPCS: 85610; G0463 ==

== ENCOUNTER 2023-07-29 03:09 | Outpatient (RCR) | payer MEDICARE, OTHER, SELFPAY | END 2023-08-23 10:07 | disposition home or self-care (01) | LOC: MM 03:09 | PROVIDERS: PCP Internal Medicine; Visit Provider Internal Medicine | DX: Z51.81 Encounter for therapeutic drug level monitoring (principal); Z79.01 Long term (current) use of anticoagulants; I48.20 Chronic atrial fibrillation, unspecified | CPT/HCPCS: 85610; G0463 ==

== ENCOUNTER 2023-08-26 00:19 | Outpatient (RCR) | payer MEDICARE, OTHER, SELFPAY | END 2023-09-25 09:55 | disposition home or self-care (01) | LOC: MM 00:19 | PROVIDERS: PCP Internal Medicine; Visit Provider Internal Medicine | DX: Z51.81 Encounter for therapeutic drug level monitoring (principal); Z79.01 Long term (current) use of anticoagulants; I48.20 Chronic atrial fibrillation, unspecified | CPT/HCPCS: 85610; G0463 ==

== ENCOUNTER 2023-09-26 00:20 | Outpatient (RCR) | payer MEDICARE, OTHER, SELFPAY | END 2023-10-25 09:53 | disposition home or self-care (01) | LOC: MM 00:20 | PROVIDERS: PCP Internal Medicine; Visit Provider Internal Medicine | DX: Z51.81 Encounter for therapeutic drug level monitoring (principal); Z79.01 Long term (current) use of anticoagulants; I48.20 Chronic atrial fibrillation, unspecified ==

== ENCOUNTER 2023-10-28 01:29 | Outpatient (RCR) | payer MEDICARE, OTHER, SELFPAY | END 2023-11-25 23:54 | disposition home or self-care (01) | LOC: MM 01:29 | PROVIDERS: PCP Internal Medicine; Visit Provider Internal Medicine | DX: Z51.81 Encounter for therapeutic drug level monitoring (principal); Z79.01 Long term (current) use of anticoagulants; I48.20 Chronic atrial fibrillation, unspecified ==

== ENCOUNTER 2023-11-01 05:34 | Outpatient (RCR) | payer MEDICARE, OTHER, SELFPAY | END 2024-02-25 23:59 | disposition home or self-care (01) | LOC: LAB 05:34 | PROVIDERS: PCP Internal Medicine; Visit Provider Nurse Practitioner Family | DX: Z79.01 Long term (current) use of anticoagulants (principal) | CPT/HCPCS: 85610 ==

== ENCOUNTER 2023-11-26 02:42 | Outpatient (RCR) | payer MEDICARE, OTHER, SELFPAY | END 2023-12-26 23:44 | disposition home or self-care (01) | LOC: MM 02:42 | PROVIDERS: PCP Internal Medicine; Visit Provider Internal Medicine | DX: Z51.81 Encounter for therapeutic drug level monitoring (principal); Z79.01 Long term (current) use of anticoagulants; I48.20 Chronic atrial fibrillation, unspecified ==

== ENCOUNTER 2023-12-27 12:24 | Outpatient (RCR) | payer MEDICARE, OTHER, SELFPAY | END 2024-01-25 23:59 | disposition home or self-care (01) | LOC: MM 12:24 | PROVIDERS: PCP Internal Medicine; Visit Provider Internal Medicine | DX: Z51.81 Encounter for therapeutic drug level monitoring (principal); Z79.01 Long term (current) use of anticoagulants; I48.20 Chronic atrial fibrillation, unspecified ==

== ENCOUNTER 2024-01-11 13:40 | Outpatient (REF) | payer MEDICARE, OTHER, SELFPAY ==
--- OUTSIDE RECORDS SUMMARY | 2024-01-11 13:45 | XMS_ITS | CCD ---
Author Organization [facility] Care Team Providers Care Gravel Inspector Name Role Phone Unavailable Unavailable Dillon Wilson Unavailable [phone] Master Costa Unavailable Corinne Corrigan Unavailable EDUARDO Byrd Primary Care Provider [phone] MD Dillon Wilson Attending Provider PAMELA Corrigan Attending Provider EDUARDO Byrd Primary Care Provider [phone] MD Dillon Wilson Attending Provider [phone] MD Dillon Wilson Admit Provider [phone] EDUARDO Byrd Primary Care Provider MD Dillon Wilson Attending Provider [phone] FAWWAD, BRADEN H Attending Unavailable FAWWAD, BRADEN [...] BYRD, DR MCMANUS Primary Care Unavailable FAWWAD, RBADEN H Attending Unavailable BYRD, DR MCMANUS Primary [...] Byrd Unavailable EDUARDO Byrd Primary Care Provider [phone] MD Dillon Wilson Attending Provider [phone] PAMELA Corrigan Attending Provider EDUARDO Byrd Primary Care Provider MD Dillon Wilson Attending Provider Curtis Byrd MD Primary Care Provider EDUARDO Byrd Primary Care Provider MD Dillon Wilson Attending Provider OZZIE QUINTERO Attending Unavailable CURTIS BYRD Primary Care Unavailable ByrdEDUARDO Curtis Primary Care Provider [phone] MD Dillon Wilson Attending Provider MD Seferino Tariq Attending Provider CURTIS BYRD Attending Unavailable CURTIS BYRD Attending Unavailable Byrd, EDUARDO Curtis Primary Care Provider MD Dillon Wilson Attending Provider EDUARDO Byrd Primary Care Provider [phone] MD Tania Aguilar Emergency Provider [phone] MD Tania Aguilar Emergency Provider DO Chan Byers Admit Provider DO Chan Byers Attending Provider [phone] MD Mario Monsalve Other Provider CANDY Nieto Other Provider MD Migel Ny Other Provider DO Jennifer Christianson Other Provider MD Rayna Hoang Other Provider PAMELA Pena Other Provider Unavailable MD Danika Lin Other Provider MD Bereket Xie Other Provider MD Vinh Scott Attending Provider [phone] Danika Lin Consulting Unavailable Coreen Jaffe Attending Unavailable Curtis Byrd Primary Care Unavailable Curtis Lino Admitting Unavailable Kuldip Traore Consulting Unavailable Devi Benites Consulting Unavailable Tania Waddell Consulting Unavailable Moises Rose Consulting Unavailable Bud Guerrero Consulting Unavailable Curtis Byrd Primary Care Unavailable Langenberg, Dillon T Attending Unavailabl e Langenberg, Dillon T Admitting Unavailabl e Byrd, Curtis Primary Care Unavailable Langenberg, Dillon T Admitting Unavailabl e Langenberg, Dillon T Attending Unavailabl e Byrd, Curtis Primary Care Unavailable Langenberg, Dillon T Admitting Unavailabl e Langenberg, Dillon T Attending Unavailabl e Byrd, Curtis Primary Care Unavailable Buehrer, Seferino Attending Unavailable Buehrer, Seferino Admitting Unavailable Byrd, Curtis Primary Care Unavailable Langenberg, Dillon T Attending Unavailabl e Langenberg, Dillon T Admitting Unavailabl e Byrd, Curtis Primary Care Unavailable Langenberg, Dillon T Attending Unavailabl e Langenberg, Dillon T Admitting Unavailabl e Byrd, Curtis Primary Care Unavailable Langenberg, Dillon T Admitting Unavailabl e Langenberg, Dillon T Attending Unavailabl e Byrd, Curtis Primary Care Unavailable Langenberg, Dillon T Attending Unavailabl e Langenberg, Dillon T Admitting Unavailabl e Byrd, Curtis Primary Care Unavailable Langenberg, Dillon T Attending Unavailabl e Langenberg, Dillon T Admitting Unavailabl e Byrd, Curtis Primary Care Unavailable Mario Monsalve Consulting Unavailable DaromaVinh gordon Attending Unavailable Chan Byers Admitting Unavailable Pelon Nieto Consulting Unavailable Migel Ny Consulting Unavailable Jennifer Christianson Consulting Unavailable Rayna Hoang Consulting Unavailable Amy Pena Consulting Unavailable Danika Lin Consulting Unavailable Bereket Xie Consulting Unavailable Byrd II, Curtis Primary Care Provider Jeff ROMEO, Tania Gordon Emergency Provider Chan Byers DO Admit Provider [phone] Mario Monsalve MD Other Provider [phone] Pelon Nieto APRN Other Provider [phone] Migel Ny MD Other Provider Jennifer Christianson DO Other Provider Rayna Hoang MD Other Provider Becky TERRITORY REPRESENTATIVE-C, Amy Other Provider Unavailable Danika Lin MD Other Provider Rojas ROMEO, Bereket Other Provider Sonia ROMEO, Vinh Everett Attending Provider Steve ROMEO, Dillon Resendez Attending Provider Tyson Conn MD Emergency Provider Zoie ROMEO, Curtis Collazo Admit Provider [phone] Zoie ROMEO, Curtis Collazo Attending Provider Kuldip Traore DO Other Provider [phone] Devi Benites APRN Other Provider Bairon DOTania Other Provider [phone] Moises Rose DO Other Provider [phone] Bud Guerrero DO Other Provider Coreen Jaffe MD Attending Provider Allergies Allergy Classification Reported Allergen(s) Allergy Type Date of Onset Reaction(s) Facility (20 sources) Penicillins; Translations: [Penicillins] Allergy to drug (finding) 03-29-19 21 Hives, Swelling of Lip/Tongue/Th roat, Swelling of Lip/Tongue/Th roat, anaphylaxis [facility] (20 sources) atorvastatin; Translations: [Lipitor] Drug Allergy 12-07-19 23 Myalgia [facility] (11 sources) Purified Protein Derivative of Tuberculin; Translations: [Tuberculin Tests] Drug Allergy 12-07-19 23 Unknown -[facility] 250 DO Work Phone: (11 sources) Penicillin Drug Allergy anaphylaxis [facility] [employer] Other (6 sources) Penicillin V Drug Allergy anaphylaxis [facility] [employer] Other (20 sources) atorvastatin; Translations: [ATORVASTATIN] Drug Allergy 03-30-19 21 Cramping of the Muscles, Cramping of the Muscles, bodyaches [facility] (12 sources) tuberculin test Propensity to adverse reactions 06-06-19 22 Redness of Skin [facility] (1 source) Dextroamphetamine Drug Allergy [facility] (1 source) Penicillin Drug Allergy [facility] (1 source) Penicillins Drug Allergy 12-07-19 [facility] Work Phone: (1 source) Purified Protein Derivative of Tuberculin; Translations: [TUBERCULIN, PURIFIED PROTEIN DERIVATIVE] Drug Allergy 12-07-19 [facility] 3 Repository (11 sources) tuberculin,PPD,multi -puncture; Translations: [tuberculin,PPD,mult i-puncture] Allergy to substance 07-04-19 Redness of Skin [facility] (1 source) Penicillins Drug allergy (disorder) 12-19-19 [facility] Repository Medications Current Medications Medication Drug Class(es) Dates Sig (Normalized) Sig (Original) 8 hr acetaminophen 650 mg extended release oral tablet (20 sources) Start: 03-06-2022 take 1 tablet by mouth every twelve hours as needed for pain Acetaminophen 650 mg Tablet Extended Release Active 650 MG PO Q12H as needed for Pain March 06, 2022 12:00am take 2 tablets by mo uth every six hours as needed acetaminophen (TylenoL) 325 mg tablet Ta ke 2 tablets (650 mg) by mouth every 6 hours if needed. 0 Active Tylenol Active Tylenol Not-Taki ng ascorbic acid / D-biotin / folic acid / niacinamide / pantothenate / pyridoxine / riboflavin / thiamine / vitamin B12 (20 sources) Vitamin B12, Vitamin C take 1 tablet by mouth once daily Audrey-Rafael Oral Tablet Take 1 tablet daily Quantity: 0 Refills: 0 Ordered: 30-May-2021 DO Active Audrey-Rafael Active B Complex-Vitamin C (2 sources) Start: 01-05-2024 take 1 tablet by mouth once daily B Complex-Vitamin C Active 1 TAB PO Daily January 05, 2024 12:00am 1 tab; B Complex-Vitamin C-Folic Acid (20 sources) Start: 11-08-2022 take 1 tablet by mouth once daily B Complex-Vitamin C-Folic Acid Active 1 TAB PO Daily November 08, 2022 12:00am Start: 06-05-2021 End: 11-08-2022 take 1 tablet [...] TAB PO Daily June 04, 2021 11:00pm B Complex-Vitamin C-Folic Acid (Renavit Multivitamin) 0.8 mg Tablet (14 sources) Start: 11-08-2022 take 1 tablet by mouth once daily B Complex-Vitamin C-Folic Acid (Renavit Multivitamin) 0.8 mg Tablet Active 1 TAB PO Daily November 07, 2022 11:00pm Start: 11-08-2022 take 1 tablet by marshal once daily B Complex-Vitamin C-Folic Acid (Renavit Multivitamin) 0.8 mg Tablet Active 1 TAB PO Daily November 08, 2022 12:00am Start: 06-05-2021 take 1 tablet by marshal th once daily B Complex-Vitamin C-Folic Acid (Renavit Multivitamin) 0.8 mg Tablet Active 1 TAB PO Daily June 04, 2021 11:00pm Start: 06-05-2021 take 1 tablet by marshal once daily B Complex-Vitamin C-Folic Acid (Renavit Multivitamin) 0.8 mg Tablet Active 1 TAB PO Daily June 05, 2021 12:00am biotin 5 mg disintegrating oral tablet (20 sources) Start: 01-26-2021 take 2 tablets by mouth once daily Biotin 5,000 mcg Tablet,Disintegrating Active 10620 MCG PO Daily January 26, 2021 12:00am Start: 01-26-2021 take 84825 ug by marshal th once daily Biotin Active 20252 MCG PO Daily January 26, 2021 1:00am Start: 03-17-2020 End: 01-26-2021 Biotin 1 mg Tablet Discontin ued 5000 MCG PO Every morning March 17, 2020 12:00am January 26, 2021 1:09pm Start: 03-17-2020 End: 01-26-2021 take 5000 ug by mouth once daily in the morning Biotin Discontinued 5000 MCG PO Every morning March 17, 2020 1:00am January 26, 2021 2:09pm take 2 tablets by [facility] once daily biotin 5 mg tablet Take 2 tablets (10 mg) by mouth once daily. 0 Active Biotin 5000 MCG as directed Once a day Active Biotin 5000 MCG as directed Once a day Active take 2 tablets by [facility] once daily Biotin 5000 MCG Oral Tablet TAKE 2 TABLET Daily Quantity: 0 Refills: 0 Ordered: 05-Jan-2021 DO Active Biotin Active bumetanide 1 mg oral tablet (20 sources) Loop Diuretic Start: 02-04-2020 End: 04-30-2023 take 1 tablet by mouth once daily bumetanide (Bumex) 1 mg tablet Indications: Essential (primary) hypertension , Stage 5 chronic kidney disease on dialysis (CMS/HCC) , Persistent atrial fibrillation (CMS/HCC) TAKE 1 TABLET BY MOUTH DAILY 90 tablet 3 12/07/2022 Active Start: 11-17-2019 End: 11-17-2019 take 1 mg by mouth twice daily Bumetanide Discontinued 1 MG PO Twice daily November 17, 2019 2:03pm November 17, 2019 3:44pm Twice daily at 0800 and 1600 Start: 11-17-2019 take [address] [facility] twice daily at bedtime Bumetanide 1 mg tablet Active 1 MG PO Daily at bedtime November 16, 2019 11:00pm TAKE 1 TABLET BY MOUTH TWICE DAILY Start: 08-28-2019 End: 11-17-2019 take 1 tablet by mouth twice daily Bumetanide 2 mg tablet Discontinued 1 MG PO Twice daily November 17, 2019 1:03pm November 17, 2019 2:44pm Twice daily at 0800 and 1600 24 hr dilTIAZem hydrochloride 120 mg extended release oral capsule (5 sources) Calcium Channel Arsen Start: 10-30-2023 take 1 capsule by mouth once daily Diltiazem Hcl 120 mg Capsule,Extended Release 24hr Active 120 MG PO Daily 0 October 29, 2023 11:00pm docusate sodium 100 mg oral capsule (20 sources) Start: 01-26-2021 take 1 capsule by mouth once daily Docusate Sodium (Colace) 100 mg Capsule Active 100 MG PO Daily January 26, 2021 12:00am Start: 08-28-2019 End: 01-26-2021 take 1 capsule by mouth twice daily Docusate Sodium (Dok) 100 mg capsule Discontinued 100 MG PO Twice daily November 17, 2019 2:46pm January 26, 2021 1:10pm 2 ml heparin sodium, porcine 1000 unt/ml injection (9 sources) Unfractionated Heparin, Anti-coagulant Heparin Sodium (Porc ine) 1000 UNIT/ML as directed Injection Active Heparin Sodium ( Porcine) PF SOLN at dialysis Quantity: 0 Refills: 0 Ordered: 05-Jan-2021 DO Active lidocaine 0.05 mg/mg medicated patch (20 sources) Antiarrhythmic, Amide Local Anesthetic Start: 11-08-2022 apply 1 dose topically once daily Lidocaine Active 1 PATCH TOPICAL Daily November 08, 2022 12:00am leave on most painful area for up to 12 hrs Lidocaine Active Lidocaine Not-Ta genesis midodrine hydrochloride 5 mg oral tablet (20 sources) alpha-Adrenergic Agonist Start: 10-30-2023 Midod rine 5 mg Tablet Active 5 MG PO MOWEFR as needed for dialysis 0 October 29, 2023 11:00pm Start: 04-30-2023 End: 04-29-2024 take 1 tablet by mouth three times daily Midodrine 10 mg tablet Active 10 MG PO Three times daily October 25, 2023 11:00pm Start: 04-06-2022 End: 04-30-2023 take 2 tablets by mouth every twenty-four hours as needed midodrine (Proamatine) 5 mg tablet Take 2 tablets (10 mg) by mouth once daily as needed (1 tablet before dialysis and 1 tablet after dialysis as needed for low bp). 0 04/06/2022 04/30/2023 Discontinued (Dose adjustment) Start: 03-06-2022 End: 10-30-2023 take 2 tablets by mouth three times daily Midodrine 5 mg Tablet Discontinued 10 MG PO Three times daily March 06, 2022 12:00am October 30, 2023 12:37pm Start: 03-06-2022 End: 10-30-2023 take 10 mg by mouth three times daily Midodrine Discontinued 10 MG PO Three times daily March 06, 2022 1:00am October 30, 2023 1:37pm Start: 03-06-2022 take 1 dose by mouth once daily at bedtime Midodrine Active 10 MG PO Use as Directed March 06, 2022 1:00am do not give last dose of day after 6PM or within 4 hrs of bedtime at dialysis as needed. Start: 03-06-2022 take 1 dose by mouth once daily at bedtime Midodrine Active 5 MG PO Daily March 06, 2022 1:00am do not give last dose of day after 6PM or within 4 hrs of bedtime at dialysis as needed. omeprazole 20 mg delayed release oral capsule (2 sources) Proton Pump Inhibitor Start: 01-05-2024 take 1 capsule by mouth once daily Omeprazole 20 mg capsule,delayed release(DR/EC) Active 20 MG PO Daily January 05, 2024 12:00am polyethylene glycol 3350 69316 mg powder for oral solution (20 sources) Osmotic Laxative Start: 03-06-2022 End: 10-30-2023 Polyethylene Glycol 3350 (Miralax) 17 gram Powder In Packet Active 17 GM PO Daily as needed for constipation October 30, 2023 12:37pm Start: 06-23-2020 End: 01-24-2021 Polyethylene Glycol 3350 (Mi ralax) 17 gram Powder In Packet Discontinued 17 GM PO Daily June 22, 2020 11:00pm January 24, 2021 4:04pm Miralax Active Miralax Not-Taki ng Renal Vitamin 0.8 mg tablet (1 source) take 1 tablet by mouth once daily Renal Vitamin 0.8 mg tablet Take 1 tablet by mouth once daily. 0 Active rosuvastatin calcium 10 mg oral tablet (20 sources) HMG-CoA Reductase Inhibitor Start: take 1 tablet by mouth once daily Rosuvastatin 10 mg Tablet Active 10 MG PO Daily June 22, 2020 11:00pm Rosuvastatin Prashanth cium Active warfarin sodium 1 mg oral tablet (20 sources) Vitamin K Antagonist Start: 01-05-2024 take 0.5 mg by mouth at bedtime Warfarin 1 mg tablet Active 0.5 MG PO Bedtime January 05, 2024 12:00am Start: 11-08-2022 End: 01-05-2024 take 1 tablet by mouth every week Warfarin 3 mg Tablet Discontinued 3 MG PO every week November 07, 2022 11:00pm January 05, 2024 5:18am On fridays Start: 07-06-2021 End: 01-05-2024 take 1 tablet by mouth six times weekly Warfarin 2 mg tablet Discontinued 2 MG PO 6 TIMES PER WEEK July 05, 2021 11:00pm January 05, 2024 5:18am M,Tu,We,Th,Sa,Starks Start: 06-20-2021 take 2 mg by mouth once daily Warfarin Active 2 MG PO Daily July 06, 2021 12:00am Warfarin Sodium 2 MG Oral Tablet TAKE DIRECTED BY [facility] Quantity: 135 Refills: 0 Ordered: 08-Mar-2022 DO Active Completed/Discontinued Medications Medication Drug Class(es) Dates Sig (Normalized) Sig (Original) acetaminophen 325 mg / oxyCODONE hydrochloride 5 mg oral tablet (20 sources) Opioid Agonist Start: 09-05-2019 End: 11-17-2019 take 1 tablet by mouth every four to six hours as needed for pain Oxycodone-Acetamino phen 5-325 mg Tablet Discontinued 1 TAB PO EVERY 4-6 HOURS as needed for Pain September 04, 2019 11:00pm November 17, 2019 2:46pm Amino Acids-Protein Hydrolys (Pro-Stat Sugar Free) 15-100 gram-kcal/30 mL liquid (20 sources) Start: 06-23-2020 End: 01-24-2021 Amino Acids-Protein [...] sources) Antiarrhythmic Start: 01-26-2021 End: 06-05-2021 take 1 tablet by mouth twice daily Amiodarone 200 mg tablet Discontinued 200 MG PO Twice daily January 26, 2021 12:00am June 05, 2021 5:38am Start: 03-17-2020 End: 01-24-2021 take 1 tablet by mouth twice daily Amiodarone 200 mg tablet Discontinued 200 MG PO Twice daily March [...] 30 Active amLODIPine 10 mg oral tablet (20 sources) Dihydropyridine Calcium Channel Arsen Start: 01-07-2019 End: 08-20-2019 take 1 tablet by mouth once daily at bedtime Amlodipine 10 mg tablet Discontinued 10 MG PO Daily at bedtime [...] 19, 2019 11:00pm November 17, 2019 3:00pm aspirin 81 mg delayed release oral tablet (20 sources) Platelet Aggregation Inhibitor, Nonsteroidal Anti-inflammatory Drug Start: 09-16-2019 End: 10-30-2023 take 1 tablet by mouth once daily Aspirin 81 mg tablet,delayed release (DR/EC) Discontinued 81 MG PO Daily March 22, 2020 4:43pm October 30, 2023 12:37pm atorvastatin 40 mg oral tablet (20 sources) HMG-CoA Reductase Inhibitor Start: 04-01-2020 End: 06-23-2020 take 1 tablet by mouth once daily in the evening Atorvastatin 40 mg Tablet Discontinued 40 MG PO Every evening 90 180 April 01, 2020 12:00am June 23, 2020 11:41am B Complex-Vitamin C-Folic Acid 0.8 mg Tablet (4 sources) Start: 11-08-2022 End: 01-05-2024 take 1 tablet by mouth once daily B Complex-Vitamin C-Folic Acid 0.8 mg Tablet Discontinued 1 TAB PO Daily November 07, 2022 11:00pm January 05, 2024 5:22am Start: 06-05-2021 End: 11-08-2022 take 1 tablet by mouth once daily B Complex-Vitamin C-Folic Acid 0.8 mg Tablet Discontinued 1 TAB PO Daily June 04, 2021 11:00pm November 08, 2022 1:56pm calcitriol 0.58145 mg oral capsule (20 sources) Vitamin D3 Analog Start: 01-07-2019 End: 10-06-2019 take 1 capsule by mouth once daily in the morning Calcitriol 0.25 mcg capsule Discontinued 0.25 MCG PO Every morning January 07, 2019 12:00am October 06, 2019 11:32am calcium acetate 667 mg oral tablet (20 sources) Start: 03-17-2020 End: 03-17-2020 take 2 tablets by mouth three times daily Calcium Acetate 667 mg tablet Discontinued 1334 MG PO Three times daily March 17, 2020 12:00am March 17, 2020 12:16pm Start: 03-17-2020 End: 03-17-2020 take 1334 mg by mouth three times daily Calcium Acetate Discontinued 1334 MG PO Three times daily March 17, 2020 1:00am March 17, 2020 1:16pm carvedilol 3.125 mg oral tablet (20 sources) alpha-Adrenergic Arsen, beta-Adrenergic Arsen Start: 11-08-2022 End: 10-30-2023 take 1 tablet by mouth twice daily in the morning Carvedilol 3.125 mg tablet Discontinued 3.125 MG PO Twice daily November 07, 2022 11:00pm October 30, 2023 12:37pm Hold AM dose HD days Start: 03-20-2022 take 1 tablet by marshal th twice daily Carvedilol 3.125 MG Oral Tablet TAKE 1 TABLET BY MOUTH TWICE DAILY Quantity: 180 Refills: 3 Ordered: 20-Mar-2022 Ozzie Quintero MD Start : 20-Mar-2022 Active take 1 tablet by marshal th once daily at mealtime Carvedilol 3.125 MG 1 tablet with food Orally every day ( M, W, F does not take in mornings) Active cinacalcet 30 mg oral tablet (20 sources) Calcium-sensing Receptor Agonist Start: 03-06-2022 End: 01-05-2024 take 1 tablet by mouth three times weekly Cinacalcet 30 mg Tablet Discontinued 30 MG PO 3 Times a week March 06, 2022 12:00am January 05, 2024 5:20am take 5 tablets by mo uth three times weekly Cinacalcet HCl - 30 MG Oral Tablet 3 vandana es weekly dialysis days Quantity: 0 Refills: 0 Ordered: 30-May-2021 DO Active 0.4 ml darbepoetin herbie 0.1 mg/ml prefilled syringe (20 sources) Erythropoiesis-stimulating Agent Start: 01-24-2021 End: 01-05-2024 Darbepoetin Herbie In Polysorbat (Aranesp (In Polysorbate)) 40 mcg/0.4 mL Syringe Discontinued 25 MCG SUBCUT every week January 24, 2021 12:00am January 05, 2024 5:20am Start: 01-24-2021 Darbepoetin Al fa In Polysorbat (Aranesp (In Polysorbate)) 40 mcg/0.4 mL Syringe Active 40 MCG SUBCUT every week January 24, 2021 1:00am inject 1 mL by subcu taneous injection every week darbepoetin herbie (Aranesp, in polysorbate,) 25 mcg/mL injection Inject 1 mL (25 mcg) under the skin 1 (one) time per week. 0 Active Aranesp 40 MCG/0 .4ML SOLN USE DIRECTED. Quantity: 0 Refills: 0 Ordered: 05-Jan-2021 DO Active diclofenac sodium 20 mg/ml topical solution (20 sources) Nonsteroidal Anti-inflammatory Drug Start: 03-06-2022 End: 01-05-2024 Diclofenac Sodium 2 % Solution In Packet Discontinued 1 PACKET TOPICAL Q12H March 06, 2022 12:00am January 05, 2024 5:22am apply to single affected knee Start: 11-25-2019 End: 01-24-2021 apply 2 g topically every four hours as needed for pain Diclofenac Sodium 1 % Gel Discontinued 2 GM TOPICAL Q4H as needed for Pain 0 November 24, 2019 11:00pm January 24, 2021 4:00pm Start: 11-25-2019 End: 01-24-2021 apply 2 g topically every four hours Diclofenac Sodium Discontinued 2 GM TOPICAL Q4H 0 November 25, 2019 12:00am January 24, 2021 5:00pm Diclofenac Sodiu m 1 % as directed Transdermal Active doxycycline hyclate 100 mg oral tablet (20 sources) Tetracycline-class Drug Start: 09-16-2019 End: 10-12-2019 take 1 tablet by mouth twice daily Doxycycline Hyclate 100 mg tablet Discontinued 100 MG PO Twice daily 10 September 15, 2019 11:00pm October 12, 2019 2:37pm famotidine 40 mg oral tablet (20 sources) Histamine-2 Receptor Antagonist Start: 06-23-2020 End: 11-29-2020 take 1 tablet by mouth once daily at bedtime Famotidine 40 mg Tablet Discontinued 40 MG PO Daily at bedtime June 22, 2020 11:00pm November 29, 2020 12:11pm ferrous sulfate 325 mg oral tablet (20 sources) Start: 08-20-2019 End: 10-08-2019 take 1 tablet by mouth once daily Ferrous Sulfate 325 mg (65 mg iron) Tablet Discontinued 325 MG PO Daily August 19, 2019 11:00pm October 08, 2019 5:11am furosemide 40 mg oral tablet (20 sources) Loop Diuretic Start: 01-07-2019 End: 08-28-2019 take 1 tablet by mouth twice daily Furosemide 40 mg tablet Discontinued 40 MG PO Twice daily January 07, 2019 12:00am August 28, 2019 8:18am hydrALAZINE hydrochloride 25 mg oral tablet (20 sources) Arteriolar Vasodilator Start: 11-25-2019 End: 03-17-2020 take 1 tablet by mouth once at mealtime Hydralazine 25 mg Tablet Discontinued 25 MG PO 3x/Day with meals 0 November 24, 2019 11:00pm March 17, 2020 10:43am Start: 11-17-2019 End: 11-25-2019 take 1 tablet by mouth three times daily at mealtime Hydralazine 100 mg tablet Discontinued 100 MG PO THREE TIMES DAILY WITH MEALS November 16, 2019 11:00pm November 25, 2019 10:53am TAKE 1 TABLET BY MOUTH WITH FOOD THREE TIMES DAILY Start: 10-12-2019 End: 11-17-2019 take 2 tablets by mouth twice daily Hydralazine 50 mg tablet Discontinued 100 MG PO Twice daily October 12, 2019 2:35pm November 17, 2019 2:44pm Start: 10-12-2019 End: 11-17-2019 take 100 mg by mouth twice daily Hydralazine Discontin ued 100 MG PO Twice daily October 12, 2019 3:35pm November 17, 2019 3:44pm Start: 09-16-2019 End: 10-12-2019 take 2 tablets by mouth three times daily Hydralazine 50 mg Tablet Discontinued 100 MG PO Three times daily September 15, 2019 11:00pm October 12, 2019 2:35pm Start: 09-16-2019 End: 10-12-2019 take 100 mg by mouth three times daily Hydralazine Discontinued 100 MG PO Three times daily September 16, 2019 12:00am October 12, 2019 3:35pm Start: 01-07-2019 End: 09-16-2019 take 2 tablets by mouth three times daily Hydralazine 25 mg tablet Discontinued 50 MG PO Three times daily January 07, 2019 12:00am September 16, 2019 8:02am Start: 01-07-2019 End: 09-16-2019 take 50 mg by mouth three times daily Hydralazine Discontinued 50 MG PO Three times daily January 07, 2019 1:00am September 16, 2019 9:02am Iron (5 sources) Iron Not-Taking Iron Active levoFLOXacin 500 mg oral tablet (20 sources) Quinolone Antimicrobial Start: 08-28-2019 End: 09-05-2019 Levofloxacin 500 mg Tablet Discontinued 500 MG PO Q48H 2 3 August 27, 2019 11:00pm September 05, 2019 10:31am minoxidil 2.5 mg oral tablet (20 sources) Arteriolar Vasodilator Start: 11-25-2019 End: 03-17-2020 take 1 tablet by mouth once daily Minoxidil 2.5 mg Tablet Discontinued 5 MG PO Daily 0 November 24, 2019 11:00pm March 17, 2020 12:16pm Start: 11-25-2019 End: 03-17-2020 take 5 mg by mouth once daily Minoxidil Discontinued 5 MG PO Daily 0 November 25, 2019 12:00am March 17, 2020 1:16pm Start: 11-17-2019 End: 11-25-2019 take 1 tablet by mouth once daily Minoxidil 10 mg tablet Discontinued 10 MG PO Daily November 16, 2019 11:00pm November 25, 2019 10:53am TAKE 1 TABLET BY MOUTH EVERY DAY Start: 01-07-2019 End: 09-08-2019 take 1 tablet by mouth once daily Minoxidil 10 mg tablet Discontinued 10 MG PO Daily January 07, 2019 12:00am September 08, 2019 12:38pm pantoprazole 40 mg delayed release oral tablet (20 sources) Proton Pump Inhibitor Start: 10-30-2023 End: 01-05-2024 take 1 tablet by mouth once daily Pantoprazole 40 mg Tablet,Delayed Release (Dr/Ec) Discontinued 40 MG PO Daily October 29, 2023 11:00pm January 05, 2024 5:19am Start: 09-16-2019 End: 10-30-2023 take 1 tablet by mouth once daily in the morning Pantoprazole (Protonix) 20 mg tablet,delayed release (DR/EC) Discontinued 20 MG PO Every morning March 22, 2020 4:43pm October 30, 2023 12:37pm 1 ml paricalcitol 0.005 mg/ml injection (20 sources) Vitamin D3 Analog Start: 03-06-2022 End: 01-05-2024 take 5 ug intravenously every week Paricalcitol (Zemplar) 5 mcg/mL Solution Discontinued 6 MCG IV every week March 06, 2022 12:00am January 05, 2024 5:19am Start: 03-06-2022 take 5 ug intravenou sly [...] 17, 2020 12:00am January 24, 2021 4:03pm paricalcitoL (Ze mplar) 2 mcg/mL injection Infuse 3.5 mL (7 mcg) into a venous catheter 3 times a week. 0 Active Zemplar 5 MCG/ML as directed Intravenous Active take 7 ug intravenou sly three times weekly Zemplar 2 MCG/ML Intravenous Solution 7 mcg 3 times weekly on dialysis days Quantity: 0 Refills: 0 Ordered: 30-May-2021 DO Active Pro-Stat Oral Liquid (10 sources) take 30 [...] DO Start : 03-Jan-2021 Active Start: 03-22-2020 End: 01-05-2024 take 1 tablet by mouth three times daily at mealtime Sevelamer Carbonate 800 mg tablet Discontinued 2400 MG PO Three times daily March 22, 2020 12:00am January 05, 2024 5:19am TWO (2)WITH EVERY MEAL AND ONE (1) WITH SNACKS Start: 03-22-2020 Sevelamer Carb kamlesh Active 2400 MG PO Three times daily March 22, 2020 1:00am TWO (2)WITH EVERY MEAL AND ONE (1) WITH SNACKS Start: 03-22-2020 Sevelamer Carb kamlesh Active 800 MG PO As Directed March 22, 2020 1:00am TWO (2)WITH EVERY MEAL AND ONE (1) WITH SNACKS Start: 03-17-2020 End: 03-22-2020 take 1 tablet by mouth three times daily Sevelamer Hcl 800 mg Tablet Discontinued 800 MG PO Three times daily March 17, 2020 12:00am March 22, 2020 4:44pm take 3 tablets by mo uth three times daily at mealtime sevelamer carbonate (Renvela) 800 mg tablet Take 3 tablets (2,400 mg) by mouth 3 times a day with meals. 0 Active take 2 tablets by mo uth three times daily at mealtime Sevelamer Carbonate 800 MG TAKES 2 TABLET BY MOUTH THREE TIMES DAILY WITH MEALS Oral for 90 Active 5 ml sodium ferric gluconate complex 12.5 mg/ml injection (20 sources) Start: 01-24-2021 End: 03-06-2022 Sodium Ferric Gluconat-Sucro se (Ferrlecit) 62.5 mg/5 mL Solution Discontinued 125 MG IV As Directed January 24, 2021 12:00am March 06, 2022 12:09pm End: 04-30-2023 ferric gluconate (Ferrlecit) 62.5 mg/5 mL injection Infuse 1 mL (12.5 mg) into a venous catheter every 14 (fourteen) days. Dialysis days 0 04/30/2023 Discontinued (Therapy completed) take 12.5 mg intrave nously every week Ferrlecit 12.5 MG/ML Intravenous Solution 12.5 mg everoy other week dialysis days Quantity: 0 Refills: 0 Ordered: 30-May-2021 DO Active Ferrlecit Not-Ta genesis Ferrlecit Active sulfaSALAzine 500 mg oral tablet (20 sources) Aminosalicylate Start: 11-17-2019 End: 11-18-2019 take 1 tablet by mouth four times daily Sulfasalazine (Azulfidine) 500 mg tablet Discontinued 500 MG PO Four times daily November 16, 2019 11:00pm November 18, 2019 4:44pm TAKE 1 TABLET BY MOUTH FOUR TIMES DAILY vancomycin 50 mg/ml oral solution (5 sources) Glycopeptide Antibacterial Start: 10-30-2023 End: 01-05-2024 Vancomycin (Firvanq) 50 mg/mL Recon Soln Discontinued 125 MG PO Four times daily 0 October 29, 2023 11:00pm January 05, 2024 5:19am verapamil hydrochloride 240 mg extended release oral tablet (20 sources) Calcium Channel Arsen Start: 08-20-2019 End: 11-25-2019 take 1 tablet by mouth once daily Verapamil (Calan Sr) 240 mg Tablet Extended Release Discontinued 240 MG PO Daily August 19, 2019 11:00pm November 25, 2019 10:53am Start: 01-07-2019 End: 03-26-2019 take 1 tablet by mouth once daily at bedtime Verapamil 240 mg tablet extended release Discontinued 240 MG PO Daily at bedtime January 07, 2019 12:00am March 26, 2019 8:45am Problems Active Problems Problem Classification Problem Date Documented Date Episodic/Chronic Acute and unspecified renal failure (18 sources) Renal failure syndrome; Translations: [Unspecified kidney failure] Onset: 2 Resolved: 2 Chronic Administrative/social admission (3 sources) Other specified counseling; Translations: [Advance directive discussed with patient] Onset: 4 01-06-2024 Episodic Cardiac dysrhythmias (20 sources) Persistent atrial fibrillation; Translations: [Atrial fibrillation] Onset: 2 09-15-2019 Chronic Cardiac dysrhythmias (20 sources) Sinus bradycardia; Translations: [Bradycardia, unspecified] 11-23-2019 Episodic Chronic kidney disease (20 sources) Chronic kidney disease stage 5 on dialysis; Translations: [End stage renal disease] Onset: 2 Resolved: 2 Chronic Chronic obstructive pulmonary disease and bronchiectasis (20 sources) Chronic obstructive lung disease; Translations: [Chronic airway obstruction, not elsewhere classified] Onset: 3 12-06-2022 Chronic Chronic ulcer of skin (20 sources) Non-pressure chronic ulcer of other part of left foot with unspecified severity; Translations: [Ulcer of left foot] 03-30-2020 Chronic Complication of device; implant or graft (20 sources) Arteriovenous fistula stenosis; Translations: [Stenosis of other vascular prosthetic devices, implants and grafts, initial encounter] Onset: 1 Resolved: 1 Chronic Congestive heart failure; nonhypertensive (20 sources) Congestive heart failure; Translations: [Heart failure, unspecified] Onset: 4 09-05-2019 Chronic Coronary atherosclerosis and other heart disease (20 sources) Coronary arteriosclerosis; Translations: [Atherosclerotic heart disease of [place] coronary artery without angina pectoris] 09-16-2019 Chronic Deficiency and other anemia (20 sources) Anemia of chronic disease; Translations: [Anemia in chronic kidney disease] Chronic Deficiency and other anemia (14 sources) Anemia due to chronic blood loss; Translations: [Iron deficiency anemia secondary to blood loss (chronic)] Chronic Deficiency and other anemia (1 source) Anemia in chronic kidney disease; Translations: [Anemia in chronic kidney disease] Onset: 4 Chronic Deficiency and other anemia (14 sources) Iron deficiency anemia; Translations: [Iron deficiency anemia, unspecified] Episodic Deficiency and other anemia (1 source) Iron deficiency anemia, unspecified Episodic Diseases of white blood cells (10 sources) Leukocytosis; Translations: [Elevated white blood cell count, unspecified] 10-24-2023 Chronic Disorders of lipid metabolism (20 sources) Hyperlipidemia; Translations: [Other and unspecified hyperlipidemia] Onset: 3 09-14-2019 Chronic Esophageal disorders (20 sources) Gastroesophageal reflux disease; Translations: [Gastro-esophageal reflux disease without esophagitis] Onset: 4 11-17-2019 Chronic Essential hypertension (20 sources) Essential hypertension; Translations: [Unspecified essential hypertension] Onset: 3 Resolved: 4 09-14-2019 Chronic Fluid and electrolyte disorders (20 sources) Hyponatremia; Translations: [Hypo-osmolality and hyponatremia] Onset: 3 11-18-2019 Episodic Gastrointestinal hemorrhage (20 sources) Hematochezia; Translations: [Melena] Onset: 2 Resolved: 2 Episodic Heart valve disorders (20 sources) Tricuspid valve regurgitation; Translations: [Diseases of tricuspid valve] Onset: 3 12-06-2022 Chronic Hypertension with complications and secondary hypertension (20 sources) Hypertensive renal disease; Translations: [Hypertensive chronic kidney disease with stage 1 through stage 4 chronic kidney disease, or unspecified chronic kidney disease] 09-14-2019 Chronic Immunizations and screening for infectious disease (6 sources) Patient encounter status; Translations: [Other specified vaccination] Episodic Intestinal infection (9 sources) Clostridium difficile colitis; Translations: [Enterocolitis due to Clostridium difficile, not specified as recurrent] Onset: 4 10-28-2023 Episodic Lymphadenitis (20 sources) Mediastinal lymphadenopathy; Translations: [Localized enlarged lymph nodes] 09-14-2019 Episodic Nephritis; nephrosis; renal sclerosis (20 sources) Chronic glomerulonephritis; Translations: [Chronic glomerulonephritis in diseases classified elsewhere] Onset: 3 12-06-2022 Chronic Other aftercare (20 sources) Drug therapy finding; Translations: [Long-term (current) use of other medications] Episodic Other aftercare (20 sources) Long-term current use of anticoagulant; Translations: [terminal gauger (current) use of anticoagulants] Episodic Other aftercare (2 sources) care home (current) use of anticoagulants; Translations: [[facility] CURRNT USE ANTICOAGULANTS] Onset: 2 Resolved: 2 Episodic Other aftercare (5 sources) Encounter for therapeutic drug level monitoring; Translations: [ENC THERAPEUTC DRUG LEVL MONITORING] Onset: 3 Episodic Other circulatory disease (17 sources) Peripheral arterial occlusive disease; Translations: [Disorder of arteries and arterioles, unspecified] Chronic Other circulatory disease (4 sources) Disorder of arteries and arterioles, unspecified Onset: 2 Resolved: 2 Chronic Other circulatory disease (20 sources) Arteriovenous fistula; Translations: [Arteriovenous fistula, acquired] 11-24-2019 Chronic Comment on above: left arm Other circulatory disease (11 sources) Arteriovenous fistula, acquired; Translations: [Arteriovenous fistula, acquired] Onset: 4 Chronic Other circulatory disease (2 sources) Orthostatic hypotension; Translations: [Orthostatic hypotension] Onset: 4 01-07-2024 Episodic Other circulatory disease (1 source) Orthostatic hypotension; Translations: [Orthostatic hypotension] 01-06-2024 Episodic Other diseases of kidney and ureters (17 sources) Hyperparathyroidism due to renal insufficiency; Translations: [Secondary hyperparathyroidism of renal origin] Chronic Other diseases of kidney and ureters (20 sources) Secondary hyperparathyroidism; Translations: [Secondary hyperparathyroidism of renal origin] 03-30-2020 Chronic Other diseases of kidney and ureters (2 sources) Secondary hyperparathyroidism of renal origin; Translations: [Secondary hyperparathyroidism (of renal origin)] Onset: 4 01-07-2024 Chronic Other gastrointestinal disorders (17 sources) Ulceration of intestine; Translations: [Ulcer of intestine] Episodic Other gastrointestinal disorders (17 sources) Occult blood in stools; Translations: [Other fecal abnormalities] Episodic Other gastrointestinal disorders (6 sources) Diarrhea; Translations: [Diarrhea, unspecified] 10-24-2023 Episodic Other gastrointestinal disorders (8 sources) Diarrhea, unspecified; Translations: [Diarrhea] Onset: 4 10-24-2023 Episodic Other gastrointestinal disorders (5 sources) Acute diarrhea; Translations: [Diarrhea, unspecified] 10-25-2023 Episodic Other hematologic conditions (20 sources) Raised cardiac enzyme or marker; Translations: [Other specified abnormalities of plasma proteins] 09-15-2019 Episodic Other hereditary and degenerative nervous system conditions (2 sources) Sympathotonic orthostatic hypotension; Translations: [Multi-system degeneration of the autonomic nervous system] Onset: 4 04-30-2023 Chronic Other hereditary and degenerative nervous system conditions (2 sources) Multi-system degeneration of the autonomic nervous system; Translations: [Multi-system degeneration of the autonomic nervous system (CMS/HCC)] Onset: 4 Chronic Other nervous system disorders (17 sources) Chronic pain; Translations: [Other chronic pain] Chronic Other nervous system disorders (17 sources) Common peroneal nerve paralysis; 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, left lower limb] Chronic Other nutritional; endocrine; and metabolic disorders (20 sources) Overweight in adulthood with body mass index of 25 or more but less than 30; Translations: [Overweight] Episodic Other screening for suspected conditions (not mental disorders or infectious disease) (16 sources) INR raised; Translations: [Abnormal coagulation profile] Onset: 4 10-25-2023 Episodic Peripheral and visceral atherosclerosis (20 sources) Peripheral vascular disease, unspecified; Translations: [Atherosclerosis of artery of lower limb] Onset: 1 Resolved: 2 Chronic Pleurisy; pneumothorax; pulmonary collapse (20 sources) Pleural effusion; Translations: [Pleural effusion, not elsewhere classified] 09-15-2019 Episodic Pneumonia (except that caused by tuberculosis or sexually transmitted disease) (6 sources) Bilateral pneumonia; Translations: [Pneumonia, unspecified organism] Onset: 4 10-30-2023 Episodic Pulmonary heart disease (20 sources) Pulmonary hypertension; Translations: [Other chronic pulmonary heart diseases] Onset: 3 09-15-2019 Chronic Screening and history of mental health and substance abuse codes (20 sources) Ex-smoker; Translations: [Personal history of tobacco use] Onset: 4 04-30-2023 Episodic Comment on above: quit 2000; Spondylosis; intervertebral disc disorders; other back problems (20 sources) Degeneration of lumbar intervertebral disc; Translations: [Other intervertebral disc degeneration, lumbar region] Chronic Spondylosis; intervertebral disc disorders; other back problems (20 sources) Spinal stenosis of lumbar region; Translations: [Spinal stenosis, lumbar region without neurogenic claudication] 11-22-2019 Episodic Unclassified (5 sources) Chronic atrial fibrillation, unspecified; Translations: [CHRONIC ATRIAL FIBRILLATION UNSPEC] Onset: 3 Unclassified (2 sources) CONTACT W/AND (SUSP) EXPOS COVID-19; Translations: [CONTACT W/AND (SUSP) EXPOS COVID-19] Onset: 3 Unclassified (3 sources) Other persistent atrial fibrillation; Translations: [Other persistent atrial fibrillation (CMS/HCC)] Onset: 3 Unclassified (4 sources) Failed encounter; Translations: [Missed dialysis] 01-05-2024 Viral infection (1 source) COVID-19; Translations: [COVID-19] Onset: 3 Past or Other Problems Problem Classification Problem Date Documented Date Episodic/Chronic Complication of device; implant or graft (20 sources) Other mechanical complication of other vascular grafts, initial encounter; Translations: [Mechanical complication of arteriovenous surgical fistula] Onset: 06-22-2021 Resolved: 06-22-2021 Episodic Other aftercare (1 source) terminal gauger (current) use of aspirin; Translations: [INTEGRATED CIRCUIT IC LAYOUT DESIGNER CURRENT USE OF ASPIRIN] Onset: 08-30-2021 Episodic Other aftercare (1 source) Other terminal gauger (current) drug therapy; Translations: [OTH [facility] CURRENT DRUG THERAPY] Onset: 08-30-2021 Episodic Other aftercare (1 source) Taking high risk medication; Translations: [Other detention (current) drug therapy] Onset: 12-06-2022 12-06-2022 Episodic Other lower respiratory disease (20 sources) Dyspnea; Translations: [Shortness of breath] Onset: 12-06-2022 12-06-2022 Episodic Superficial injury; contusion (2 sources) Contusion of left upper arm, initial encounter Onset: 06-22-2021 Resolved: 06-22-2021 Episodic Unclassified (1 source) CONTACT W/AND (SUSP) EXPOS COVID-19; Translations: [CONTACT W/AND (SUSP) EXPOS COVID-19] Onset: 06-01-2022 Unclassified (1 source) Onset: 04-30-2023 04-30-2023 Results Test Name Value Interpretation Reference Range Facility Alanine aminotransferase [En zymatic activity/volume] in Serum or PlasmaOrdered By: Curtis Lino on 01-07-2024 ALT [Catalytic activity/Vol] Alanine aminotransferase [Enzymatic activity/volume] in Serum or Plasma [facility] Albumin [Mass/volume] in Ser um or Plasma by Bromocresol green (BCG) dye binding methoOrdered By: Curtis Lino on 01-07-2024 Albumin BCG dye [Mass/Vol] Albumin [Mass/volume] in Serum or Plasma by Bromocresol green (BCG) dye binding metho Low 3.5-5.7 [facility] Alkaline phosphatase [Enzyma tic activity/volume] in Serum or PlasmaOrdered By: Curtis Lino on 01-07-2024 ALP [Catalytic activity/Vol] Alkaline phosphatase [Enzymatic activity/volume] in Serum or Plasma 34-104 [facility] Aspartate aminotransferase [ Enzymatic activity/volume] in Serum or PlasmaOrdered By: Curtis Lino on 01-07-2024 AST [Catalytic activity/Vol] Aspartate aminotransferase [Enzymatic activity/volume] in Serum or Plasma 13-39 [facility] Basophils Auto (Bld) [#/Vol] Ordered By: Curtis Lino on 01-07-2024 Basophils (Bld) [#/Vol] Automated basophil count 0.0-0.2 [facility] Basophils/100 WBC Auto (Bld) Ordered By: Curtis Lino on 01-07-2024 Basophils/100 WBC (Bld) Automated basophil % . [facility] Bilirubin.total [Mass/volume ] in Serum or PlasmaOrdered By: Curtis Lino on 01-07-2024 Bilirubin [Mass/Vol] Bilirubin.total [Mass/volume] in Serum or Plasma 0.3-1.0 [facility] Calcium [Mass/volume] in Ser um or PlasmaOrdered By: Curtis Lino on 01-07-2024 Calcium [Mass/Vol] Calcium [Mass/volume ] in Serum or Plasma 8.6-10.3 [facility] Carbon dioxide, total [Moles /volume] in Serum or PlasmaOrdered By: Curtis Lino on 01-07-2024 CO2 [Moles/Vol] Carbon dioxide, tota l [Moles/volume] in Serum or Plasma 21.0-31.0 [facility] Chloride [Moles/volume] in S haily or PlasmaOrdered By: Curtis Lino on 01-07-2024 Chloride [Moles/Vol] Chloride [Moles/vol ume] in Serum or Plasma Low 98-107 [facility] Complete Blood Count Auto Di ffon 01-07-2024 Basophils (Bld) [#/Vol] 0.0 10*3/uL Normal 0.0-0.2 [facility] Comment on above: Result Comment: PERF ORMED BY: [place] [address] PATHOLOGIST EXCHANGE MECHANIC KATARINA WILKERSON M.D. Performed By: #### L ACTDARYA DAWN #### [place] [address] [place] Basophils/100 WBC (Bld) 0.5 % Normal . [facility] Comment on above: Performed By: #### L ACTDARYA DAWN #### [address] Eosinophils (Bld) [#/Vol] 0.1 10*3/uL Normal 0.0-0.45 [facility] Comment on above: Performed By: #### L ACTDARYA DAWN #### [address] Eosinophils/100 WBC (Bld) 1.8 % Normal . [facility] Comment on above: Performed By: #### L DARYA ALEXIS #### [address] Erythrocyte distribution width (RBC) [Ratio] 17.1 % High 11.9-15.3 [facility] Comment on above: Performed By: #### L ACTDARYA DAWN #### [address] Hematocrit (Bld) [Volume fraction] 32.9 % Low 34.0-46.4 [facility] Comment on above: Performed By: #### L ACTDARYA DAWN #### [address] Hemoglobin (Bld) [Mass/Vol] 10.9 g/dL Low 11.8-15.4 [facility] Comment on above: Performed By: #### L ACTDARYA DAWN #### [place] [address] [place] Lymphocytes (Bld) [#/Vol] 1.8 10*3/uL Normal 1.00-4.8 [facility] Comment on above: Performed By: #### L DARYA ALEXIS #### [address] Lymphocytes/100 WBC (Bld) 24.1 % Normal . [facility] Comment on above: Performed By: #### L DARYA ALEXIS #### [address] MCH (RBC) [Entitic mass] 29.9 pg Normal 24.7-34.3 [facility] Comment on above: Performed By: #### L DARYA ALEXIS #### [address] MCV (RBC) [Entitic vol] 90.4 fL Normal 80-100 [facility] Comment on above: Performed By: #### L DARYA ALEXIS #### [address] Mean Corpuscular HGB Conc 33.0 g/dL Normal 32.0-35.0 [facility] Comment on above: Performed By: #### L DARYA ALEXIS #### [address] Monocytes (Bld) [#/Vol] 0.7 10*3/uL Normal 0.0-0.8 [facility] Comment on above: Performed By: #### L DARYA ALEXIS #### [address] Monocytes/100 WBC (Bld) 9.1 % Normal . [facility] Comment on above: Performed By: #### L DARYA ALEXIS #### [address] Neutrophils (Bld) [#/Vol] 4.7 10*3/uL Normal 1.8-7.7 [facility] Comment on above: Performed By: #### L DARYA ALEXIS #### [place] [id number] [place] Neutrophils/100 WBC (Bld) 64.5 % Normal . [facility] Comment on above: Performed By: #### L DARYA ALEXIS #### [address] NRBC% 0.2 /100{WBC} Normal 0-0.5 [facility] Comment on above: Performed By: #### L DARYA ALEXIS #### [address] Platelet mean volume (Bld) [Entitic vol] 7.0 fL Normal 6.3-10.7 [facility] Comment on above: Performed By: #### L DARYA ALEXIS #### [address] Platelets (Bld) [#/Vol] 246 10*3/uL Normal 150-450 [facility] Comment on above: Performed By: #### L DARYA ALEXIS #### [address] RBC (Bld) [#/Vol] 3.64 10*6/uL Normal 3.60-5.00 [facility] Comment on above: Performed By: #### L DARYA ALEXIS #### [address] WBC (Bld) [#/Vol] 7.4 10*3/uL Normal 3.8-11.6 [facility] Comment on above: Performed By: #### L DARYA ALEXIS #### [address] Comprehensive Metabolic Pane priya 01-07-2024 Albumin [Mass/Vol] 3.1 g/dL Low 3.5-5.7 [facility] Comment on above: Performed By: #### L DARYA ALEXIS #### [address] Albumin/Globulin [Mass ratio] 1.1 {ratio} Normal [facility] Comment on above: Performed By: #### L DARYA ALEXIS #### [facility] [address] [place] [id number] [facility] ALP [Catalytic activity/Vol] 83 U/L Normal 34-104 [facility] Comment on above: Performed By: #### L DARYA ALEXIS #### [facility] [address] [place] [id number] [facility] ALT [Catalytic activity/Vol] 10 U/L Normal 7-52 [facility] Comment on above: Performed By: #### L DARYA ALEXIS #### [place] [id number] [facility] Anion gap [Moles/Vol] 14.2 mmol/L Normal 6.0-15.0 [facility] Comment on above: Performed By: #### L DARYA ALEXIS #### [address] AST [Catalytic activity/Vol] 16 U/L Normal 13-39 [facility] Comment on above: Performed By: #### L DARYA ALEXIS #### [address] Bilirubin [Mass/Vol] 0.7 mg/dL Normal 0.3-1.0 [facility] Comment on above: Performed By: #### L DARYA ALEXIS #### [address] Calcium [Mass/Vol] 8.9 mg/dL Normal 8.6-10.3 [facility] Comment on above: Performed By: #### L DARYA ALEXIS #### [place] [id number] [place] Chloride [Moles/Vol] 96 mmol/L Low 98-107 [facility] Comment on above: Performed By: #### L DARYA ALEXIS #### [place] [id number] [facility] CO2 [Moles/Vol] 30.2 mmol/L Normal 21.0-31.0 [facility] Comment on above: Performed By: #### L DARYA ALEXIS #### [address] Creatinine [Mass/Vol] 3.81 mg/dL Significan t change up 0.60-1.20 [facility] [facility] Comment on above: Performed By: #### L DARYA ALEXIS #### [address] Creatinine Clr Calc Pharmacy 13.85 Normal [facility] Comment on above: Result Comment: PERF ORMED BY: [place] [address] PATHOLOGIST EXCHANGE MECHANIC KATARINA WILKERSON M.D. Performed By: #### L DARYA ALEXIS #### [address] GFR/1.73 sq M.predicted MDRD (S/P/Bld) [Vol rate/Area] 12.098 mL/min/{1.73_m2} Normal [facility] Comment on above: Performed By: #### L DARYA ALEXIS #### [address] Globulin (S) [Mass/Vol] 2.8 g/dL Normal [facility] Comment on above: Performed By: #### L DARYA ALEXIS #### [address] Glucose [Mass/Vol] 82 mg/dL Normal 70-100 [facility] Comment on above: Result Comment: [facility] Glucose Reference Range is dependent on time and content of last meal. Glucose of more than 200 mg/dL in a nonstressed, ambulatory subject supports the diagnosis of Diabetes Mellitus. ADA recommended reference range Performed By: #### L DARYA ALEXIS #### [address] Potassium [Moles/Vol] 3.4 mmol/L Low 3.5-5.1 [facility] Comment on above: Performed By: #### L DARYA ALEXIS #### [address] Protein [Mass/Vol] 5.9 g/dL Low 6.4-8.9 [facility] Comment on above: Performed By: #### L ACTIC, CUBLD #### [facility] [address] [place] [address] [place] Sodium [Moles/Vol] 137 mmol/L Normal 136-145 [facility] Comment on above: Performed By: #### L ACTIC, CUBLD #### [facility] [address] Urea nitrogen [Mass/Vol] 13 mg/dL Normal 7-25 [facility] Comment on above: Performed By: #### L ACTIC, CUBLD #### [facility] [address] Creatinine [Mass/volume] in Serum or PlasmaOrdered By: Curtis Lino on 01-07-2024 Creatinine [Mass/Vol] Creatinine [Mass/v olume] in Serum or Plasma Invalid Interpretation Code 0.60-1.20 [facility] Comment on above: Delta: 6.14 on 01/05-17 Eosinophils Auto (Bld) [#/Vo l]Ordered By: Curtis Lino on 01-07-2024 Eosinophils (Bld) [#/Vol] Automated eosinophil count 0.0-0.45 [facility] Eosinophils/100 WBC Auto (Bl d)Ordered By: Curtis Lino on 01-07-2024 Eosinophils/100 WBC (Bld) Automated eosinophil % . [facility] Erythrocyte distribution wid th Auto (RBC) [Ratio]Ordered By: Curtis Lino on 01-07-2024 Erythrocyte distribution width (RBC) [Ratio] Erythrocyte distribution width [Ratio] by Automated count High 11.9-15.3 [facility] Globulin Calc (S) [Mass/Vol] Ordered By: Curtis Lino on 01-07-2024 Globulin (S) [Mass/Vol] Serum globulin measurement by calculation (mass/volume) [facility] Glucose Glucometer (BldC) [M ass/Vol]Ordered By: Coreen Jaffe on 01-07-2024 Glucose [Mass/Vol] Capillary blood gluc ose measurement by glucometer (mass/volume) [facility] Comment on above: Random Glucose Refer ence Range is dependent on time and content of last meal. Glucose of more than 200 mg/dL in a nonstressed, ambulatory subject supports the diagnosis of Diabetes Mellitus. Glucose Poct Glucometerson 1 03-08-2023 Glucose [Mass/Vol] 86 mg/dL Normal [facility] Comment on above: Result Comment: [place] [facility] Glucose Reference Range is dependent on time and content of last meal. Glucose of more than 200 mg/dL in a nonstressed, ambulatory subject supports the diagnosis of Diabetes Mellitus. PERFORMED BY: [place] [address] PATHOLOGIST EXCHANGE MECHANIC KATARINA WILEKRSON M.D. Performed By: #### L DARYA ALEXIS #### [address] Glucose [Mass/volume] in Ser um or PlasmaOrdered By: Curtis Lino on 01-07-2024 Glucose [Mass/Vol] Glucose [Mass/volume ] in Serum or Plasma 70-100 [facility] Comment on above: ADA recommended refe rence rangeRandom Glucose Reference Range is dependent on time and content of last meal. Glucose of more than 200 mg/dL in a nonstressed, ambulatory subject supports the diagnosis of Diabetes Mellitus. Hematocrit Auto (Bld) [Volum e fraction]Ordered By: Curtis Lino on 01-07-2024 Hematocrit (Bld) [Volume fraction] Hematocrit [Volume Fraction] of Blood by Automated count Low 34.0-46.4 [facility] Hemoglobin [Mass/volume] in BloodOrdered By: Curtis Lino on 01-07-2024 Hemoglobin (Bld) [Mass/Vol] Hemoglobin [Mass/volume] in Blood Low 11.8-15.4 [facility] INR in Platelet poor plasma by Coagulation assayOrdered By: Curtis Lino on 01-07-2024 INR Coag (PPP) [Relative time] INR in Platelet poor plasma by Coagulation assay [facility] Comment on above: INR Therapeutic [...] with mechanical heart valves: 3 - 4.5 Leukocytes [#/volume] correc hermilo for nucleated erythrocytes in Blood by Automated counOrdered By: Curtis Lino on 01-07-2024 WBC corrected for nucl RBC Auto (Bld) [#/Vol] Leukocytes [#/volume] corrected for nucleated erythrocytes in Blood by Automated coun 3.8-11.6 [facility] Lymphocytes Auto (Bld) [#/Vo l]Ordered By: Curtis Lino on 01-07-2024 Lymphocytes (Bld) [#/Vol] Lymphocytes [#/volume] in Blood by Automated count 1.00-4.8 [facility] Lymphocytes/100 WBC Auto (Bl d)Ordered By: Curtis Lino on 01-07-2024 Lymphocytes/100 WBC (Bld) Lymphocytes/100 leukocytes in Blood by Automated count . [facility] MCH Auto (RBC) [Entitic mass ]Ordered By: Curtis Lino on 01-07-2024 MCH (RBC) [Entitic mass] MCH [Entitic mass] by Automated count 24.7-34.3 [facility] MCHC Auto (RBC) [Mass/Vol]Or dered By: Curtis Lino on 01-07-2024 MCHC (RBC) [Mass/Vol] MCHC [Mass/volume] by Automated count 32.0-35.0 [facility] MCV Auto (RBC) [Entitic vol] Ordered By: Curtis Lino on 01-07-2024 MCV (RBC) [Entitic vol] MCV [Entitic volume] by Automated count 80-100 [facility] Monocytes Auto (Bld) [#/Vol] Ordered By: Curtis Lino on 01-07-2024 Monocytes (Bld) [#/Vol] Automated blood monocyte count 0.0-0.8 [facility] Monocytes/100 WBC Auto (Bld) Ordered By: Curtis Lino on 01-07-2024 Monocytes/100 WBC (Bld) Automated monocyte % . [facility] NM andrew perf SPECT rest stron 01-07-2024 NM andrew perf SPECT rest str [facility] Main [place] [id number] Nuclear Medicine Report Signed Patient: Edita Costa MR#: [id number] : 1950 Acct:[id number] Age/Sex: 73 / F ADM Date: 01/05/24 Loc: Room: [address] [place] [address] Type: DIS IN Attending Dr: Coreen Jaffe MD Copies to: Salinas Ortega MD, [facility] MD Coreen Archibald MD Ordering Provider: Salinas Ortega MD, [facility] Date of Service: 01/07/24 NM/NM andrew perf SPECT rest str: AF Dose Ordered REFERRING PHYSICIAN: Salinas Ortega MD REASON FOR STUDY: AFib and shortness of breath. PROCEDURE: The patient underwent 1-day rest/stress protocol. Rest images obtained by injecting of 6 mCi Cardiolite. Stress images obtained by injecting 19 mCi of Cardiolite. Subsequently, gated SPECT and ejection fraction studies were performed. IMAGING RESULT: This appears to be a fair study. It appears to be normal. There is no clear pattern of ischemia or myocardial infarction. Left ventricular ejection fraction appears normal, calculated at 58%. TID index normal at 0.9. CONCLUSION: 1. Normal myocardial perfusion study. 2. No ischemia or myocardial infarction. 3. Normal left ventricular systolic function and wall motion. 4. No previous study available for comparison. Transcribed By: CARIDAD 01/08/24 1478 Dictated By: Leatha Ureña MD 01/07/24 9089 Signed By: 01/08/24 1646 Normal [facility] Neutrophils Auto (Bld) [#/Vo l]Ordered By: Curtis Lino on 01-07-2024 Neutrophils (Bld) [#/Vol] Neutrophils [#/volume] in Blood by Automated count 1.8-7.7 [facility] Neutrophils/100 WBC Auto (Bl d)Ordered By: Curtis Lino on 01-07-2024 Neutrophils/100 WBC (Bld) Automated neutrophil % . [facility] No Panel InformationOrdered By: Curtis Lino on 01-07-2024 Estimated GFR (CKD-EPI) 12.098 mL/Min [facility] Creatinine Clearance (Chem 13.85 [facility] Nucleated erythrocytes [Pres ence] in Blood by Automated countOrdered By: Curtis Lino on 01-07-2024 Nucleated RBC Auto Ql (Bld) Nucleated erythrocytes [Presence] in Blood by Automated count 0-0.5 [facility] Platelet mean volume Auto (B ld) [Entitic vol]Ordered By: Curtis Lino on 01-07-2024 Platelet mean volume (Bld) [Entitic vol] Platelet mean volume [Entitic volume] in Blood by Automated count 6.3-10.7 [facility] Platelets Auto (Bld) [#/Vol] Ordered By: Curtis Lino on 01-07-2024 Platelets (Bld) [#/Vol] Platelets [#/volume] in Blood by Automated count 150-450 [facility] Potassium [Moles/volume] in Serum or PlasmaOrdered By: Curtis Lino on 01-07-2024 Potassium [Moles/Vol] Potassium [Moles/v olume] in Serum or Plasma Low 3.5-5.1 [facility] Protein [Mass/volume] in Ser um or PlasmaOrdered By: Curtis Lino on 01-07-2024 Protein [Mass/Vol] Protein [Mass/volume ] in Serum or Plasma Low 6.4-8.9 [facility] Prothrombin Time INRon 01-06 INR Coag (PPP) [Relative time] 2.2 {INR} Normal [facility] Comment on above: Result Comment: INR Therapeutic Range A) Pre- and Peroperative OAT started two weeks before surgery. NOT HIP SURGERY: 1.5 - 2.5 HIP SURGERY: 2 - 3 B) Primary and secondary prevention of venous THROMBOSIS: 2 - 3 C) Active venous thrombosis, pulmonary embolism and prevention of recurrent venous thrombosis: 2 - 3 D) Prevention of arterial thromboembolism including patients with mechanical heart valves: 3 - 4.5 PERFORMED BY: [place] [address] PATHOLOGIST EXCHANGE MECHANIC KATARINA WILKERSON M.D. Performed By: #### L ACTDARYA DAWN #### [address] PT Coag (PPP) [Time] 25.4 s High 9.0-12.9 [facility] Comment on above: Result Comment: A he matocrit value greater than 55% may lead to inaccurate results in coagulation testing. Patients having hematocrit values >55% require a special collection tube for coagulation studies. Please contact the laboratory at [phone] for redraw instructions. Performed By: #### L ACTIC, CUBLD #### [place] [address] [place] Prothrombin time (PT)Ordered By: Curtis Lino on 01-07-2024 PT Coag (PPP) [Time] Prothrombin time (PT) High 9.0- 12.9 [facility] Comment on above: A hematocrit value g reater than 55% may lead to inaccurate results in coagulation testing. Patients having hematocrit values >55% require a special collection tube for coagulation studies. Please contact the laboratory at [phone] for redraw instructions. RBC Auto (Bld) [#/Vol]Ordere d By: Curtis Lino on 01-07-2024 RBC (Bld) [#/Vol] Erythrocytes [#/volu me] in Blood by Automated count 3.60-5.00 [facility] STR cardiac stress/lexiscano n 01-07-2024 STR cardiac stress/lexiscan [facility] Main [place] [address] [place], [place] [id number] Cardiac Stress Test Signed Patient: Edita Costa MR#: [id number] : 1950 Acct:[id number] Age/Sex: 73 / F ADM Date: 01/05/24 Loc: Room: [address] [place] [address] Type: DIS IN Attending Dr: Coreen Jaffe MD Copies to: Salinas Ortega MD, [facility] Leatha Ureña MD Ordering Provider: Salinas Ortega MD, [facility] Date of Service: 01/07/24 STR/STR cardiac stress/lexiscan: AF REFERRING PHYSICIAN: Salinas Ortega MD REASON FOR STUDY: Atrial fibrillation and shortness of breath. PROCEDURE: The patient underwent Lexiscan myocardial perfusion. The patient was injected with 0.4 mg of Lexiscan, following which no symptoms reported. Blood pressure and heart response to Lexiscan was physiologic. Baseline ECG showed atrial fibrillation with nonspecific ST-T changes. Following Lexiscan, no changes were seen. CONCLUSION: 1. Lexiscan myocardial perfusion study without diagnostic ST-T changes for ischemia. 2. No provoked chest pain or arrhythmia. 3. Appropriate hemodynamic response to Lexiscan 4. Myocardial perfusion study will be dictated separately. 5. Atrial fibrillation was noted. Transcribed By: CARIDAD 01/08/24 0717 Dictated By: Leatha Ureña MD 01/07/24 1549 Signed By: 01/08/24 1646 Normal [facility] Serum or plasma albumin/glob ulin mass ratioOrdered By: Curtis Lino on 01-07-2024 Albumin/Globulin [Mass ratio] Serum or plasma albumin/globulin mass ratio [facility] Serum or plasma anion gap de terminationOrdered By: Curtis Lino on 01-07-2024 Anion gap [Moles/Vol] Serum or plasma an ion gap determination 6.0-15.0 [facility] Sodium [Moles/volume] in Ser um or PlasmaOrdered By: Curtis Lino on 01-07-2024 Sodium [Moles/Vol] Sodium [Moles/volume ] in Serum or Plasma 136-145 [facility] Urea nitrogen [Mass/volume] in Serum or PlasmaOrdered By: Curtis Lino on 01-07-2024 Urea nitrogen [Mass/Vol] Urea nitrogen [Mass/volume] in Serum or Plasma 7-25 [facility] WBC Auto (Bld) [#/Vol]Ordere d By: Curtis Lino on 01-07-2024 WBC (Bld) [#/Vol] Leukocytes [#/volume ] in Blood by Automated count 3.8-11.6 [facility] Complete Blood Count Auto Di ffon 01-06-2024 Basophils (Bld) [#/Vol] 0.1 10*3/uL Normal 0.0-0.2 [facility] Comment on above: Result Comment: PERF ORMED BY: [facility] [address] [place] [address] PATHOLOGIST EXCH[employer] MECHANIC KATARINA WILKERSON M.D. Performed By: #### L ACTIC CUBLD #### [facility] [address] [place] [id number] [place] Basophils/100 WBC (Bld) 0.6 % Normal . [facility] Comment on above: Performed By: #### L ACTIC, CUBLD #### [facility] [address] [place] [id number] [place] Eosinophils (Bld) [#/Vol] 0.1 10*3/uL Normal 0.0-0.45 [facility] Comment on above: Performed By: #### L ACTIC CUBLD #### [facility] [address] [place] [id number] [place] Eosinophils/100 WBC (Bld) 1.5 % Normal . [facility] Comment on above: Performed By: #### L ACTIC CUBLD #### [facility] [address] [place] [address] [place] Erythrocyte distribution width (RBC) [Ratio] 17.6 % High 11.9-15.3 [facility] Comment on above: Performed By: #### L ACTIC CUBLD #### [facility] [address] [place] [id number] [place] Hematocrit (Bld) [Volume fraction] 36.4 % Normal 34.0-46.4 [facility] Comment on above: Performed By: #### L ACTIC CUBLD #### [facility] [address] [place] [id number] [place] Hemoglobin (Bld) [Mass/Vol] 12.0 g/dL Normal 11.8-15.4 [facility] Comment on above: Performed By: #### L ACTIC CUBLD #### [facility] [address] [place] [id number] [place] Lymphocytes (Bld) [#/Vol] 1.7 10*3/uL Normal 1.00-4.8 [facility] Comment on above: Performed By: #### L ACTIC, CUBLD #### [facility] [address] [place] [id number] [place] Lymphocytes/100 WBC (Bld) 19.5 % Normal . [facility] Comment on above: Performed By: #### L ACTIC CUBLD #### [facility] [address] MCH (RBC) [Entitic mass] 29.7 pg Normal 24.7-34.3 [facility] Comment on above: Performed By: #### L ACTIC CUBLD #### [address] MCV (RBC) [Entitic vol] 90.5 fL Normal 80-100 [facility] Comment on above: Performed By: #### L ACTIC CUBLD #### [address] Mean Corpuscular HGB Conc 32.9 g/dL Normal 32.0-35.0 [facility] Comment on above: Performed By: #### L ACTIC CUBLD #### [address] Monocytes (Bld) [#/Vol] 0.6 10*3/uL Normal 0.0-0.8 [facility] Comment on above: Performed By: #### L ACTPHOEBE DAWNLD #### [place] [address] [place] Monocytes/100 WBC (Bld) 7.1 % Normal . [facility] Comment on above: Performed By: #### L ACTNEREYDA CUBLD #### [address] Neutrophils (Bld) [#/Vol] 6.0 10*3/uL Normal 1.8-7.7 [facility] Comment on above: Performed By: #### L ACTIC CUBLD #### [place] [address] [place] Neutrophils/100 WBC (Bld) 71.3 % Normal . [facility] Comment on above: Performed By: #### L ACTIC CUBLD #### [address] NRBC% 0.1 /100{WBC} Normal 0-0.5 [facility] Comment on above: Performed By: #### L DARYA ALEXIS #### [address] Platelet mean volume (Bld) [Entitic vol] 7.1 fL Normal 6.3-10.7 [facility] Comment on above: Performed By: #### L DARYA ALEXIS #### [address] Platelets (Bld) [#/Vol] 267 10*3/uL Normal 150-450 [facility] Comment on above: Performed By: #### L DARYA ALEXIS #### [address] RBC (Bld) [#/Vol] 4.02 10*6/uL Normal 3.60-5.00 [facility] Comment on above: Performed By: #### L DARYA ALEXIS #### [address] WBC (Bld) [#/Vol] 8.5 10*3/uL Normal 3.8-11.6 [facility] Comment on above: Performed By: #### L DARYA ALEXIS #### [address] Comprehensive Metabolic Pane [facility] 01-06-2024 Albumin [Mass/Vol] 3.2 g/dL Low 3.5-5.7 [facility] Comment on above: Performed By: #### L DARYA ALEXIS #### [address] Albumin/Globulin [Mass ratio] 1.2 {ratio} Normal [facility] Comment on above: Performed By: #### L DARYA ALEXIS #### [address] ALP [Catalytic activity/Vol] 86 U/L Normal 34-104 [facility] Comment on above: Performed By: #### L DARYA ALEXIS #### [address] ALT [Catalytic activity/Vol] 11 U/L Normal 7-52 [facility] Comment on above: Performed By: #### L ACTDARYA DAWN #### [facility] [address] Anion gap [Moles/Vol] 18.8 mmol/L High 6.0-15.0 [facility] Comment on above: Performed By: #### L ACTPHOEBE DAWNLD #### [facility] [address] AST [Catalytic activity/Vol] 20 U/L Normal 13-39 [facility] Comment on above: Performed By: #### L ACTDARYA DAWN #### [facility] [address] Bilirubin [Mass/Vol] 0.7 mg/dL Normal 0.3-1.0 [facility] Comment on above: Performed By: #### L ACTDARYA DAWN #### [facility] [address] Calcium [Mass/Vol] 9.0 mg/dL Normal 8.6-10.3 [facility] Comment on above: Performed By: #### L ACTDARYA DAWN #### [facility] [address] [place] [address] [place] Chloride [Moles/Vol] 94 mmol/L Low 98-107 [facility] Comment on above: Performed By: #### L ACTPHOEBE DAWNLD #### [facility] [address] [place] [address] [place] CO2 [Moles/Vol] 28.2 mmol/L Normal 21.0-31.0 [facility] Comment on above: Performed By: #### L ACTPHOEBE DAWNLD #### [facility] [address] [place] [id number] [place] Creatinine [Mass/Vol] 6.14 mg/dL Significan t change up 0.60-1.20 [facility] Comment on above: Performed By: #### L ACTPHOEBE DAWNLD #### [facility] [address] [place] [address] [place] Creatinine Clr Calc Pharmacy 8.82 Normal [facility] Comment on above: Result Comment: PERF ORMED BY: [place] [address] PATHOLOGIST EXCH[employer] MECHANIC KATARINA WILKERSON M.D. Performed By: #### L DARYA ALEXIS #### [place] [address] [place] GFR/1.73 sq M.predicted MDRD (S/P/Bld) [Vol rate/Area] 6.823 mL/min/{1.73_m2} Normal [facility] Comment on above: Performed By: #### L DARYA ALEXIS #### [facility] [address] Globulin (S) [Mass/Vol] 2.6 g/dL Normal [facility] Comment on above: Performed By: #### L DARYA ALEXIS #### [address] Glucose [Mass/Vol] 78 mg/dL Normal 70-100 [facility] Comment on above: Result Comment: [facility] Glucose Reference Range is dependent on time and content of last meal. Glucose of more than 200 mg/dL in a nonstressed, ambulatory subject supports the diagnosis of Diabetes Mellitus. ADA recommended reference range Performed By: #### L DARYA ALEXIS #### [address] Potassium [Moles/Vol] 4.0 mmol/L Significan t change down 3.5-5.1 [facility] Comment on above: Result Comment: Hemo lysis is present at a level that could interfere with the result.Contact lab if redraw is required Performed By: #### L DARYA ALEXIS #### [address] Protein [Mass/Vol] 5.8 g/dL Low 6.4-8.9 [facility] Comment on above: Performed By: #### L DARYA ALEXIS #### [address] Sodium [Moles/Vol] 137 mmol/L Normal 136-145 [facility] Comment on above: Performed By: #### L DARYA ALEXIS #### [facility] [address] Urea nitrogen [Mass/Vol] 23 mg/dL Significant change down 09-18 [facility] Comment on above: Performed By: #### L DARYA ALEXIS #### [address] ECG 12 lead ECGon 01-06-2024 ECG 12 lead ECG [facility] Main [place] [address] [place] [address] Electrocardiograph Report Signed Patient: Edita Costa MR#: [id number] : 1950 Acct:[id number] Age/Sex: 73 / F ADM Date: 01/05/24 Loc: Room: [address] [place] [address] Type: ADM IN Attending Dr: Coreen Jaffe MD Ordering Provider: Salinas Ortega MD, [facility] Date of Service: 01/06/2401/18/1209 ECG/ECG 12 lead ECG: AF Copies to: Test Reason : Blood Pressure : */* mmHG Vent. Rate : 93 BPM Atrial Rate : * BPM P-R Int : * ms QRS Dur : 98 ms QT Int : 392 ms P-R-T Axes : * -16 206 degrees QTcB Int : 487 ms Atrial fibrillation with premature ventricular or aberrantly conducted complexes Left ventricular hypertrophy with repolarization abnormality ( Benji product ) Abnormal ECG When compared with ECG of 05-Jan-2024 03:32, (Unconfirmed) Vent. rate has decreased by 62 bpm Left bundle branch block is no longer present Confirmed by ADELITA ROMEO, LEATHA ([id number]) on 01/06/2024 7:18:35 PM Referred By: Electronically Signed By: LEATHA UREÑA MD Transcribed By: MUS Signed By Leatha Ureña MD 1 03/07/231917 Normal [facility] Glucose Poct Glucometerson 1 03-07-2023 Glucose [Mass/Vol] 124 mg/dL Normal [facility] Comment on above: Result Comment: [place] om Glucose Reference Range is dependent on time and content of last meal. Glucose of more than 200 mg/dL in a nonstressed, ambulatory subject supports the diagnosis of Diabetes Mellitus. PERFORMED BY: [place] [address] PATHOLOGIST [employer]CHANGE MECHANIC KATARINA WILKERSON M.D. Performed By: #### L DARYA ALEXIS #### [address] Glucose [Mass/Vol] 77 mg/dL Normal [facility] Comment on above: Result Comment: [place] om Glucose Reference Range is dependent on time and content of last meal. Glucose of more than 200 mg/dL in a nonstressed, ambulatory subject supports the diagnosis of Diabetes Mellitus. PERFORMED BY: [place] [address] PATHOLOGIST EXCHANGE MECHANIC KATARINA WILKERSON M.D. Performed By: #### C OVID19 FLU RSV, CEPHEID NEG #### [address] Glucose [Mass/Vol] 84 mg/dL Normal [facility] Comment on above: Result Comment: [place] om Glucose Reference Range is dependent on time and content of last meal. Glucose of more than 200 mg/dL in a nonstressed, ambulatory subject supports the diagnosis of Diabetes Mellitus. PERFORMED BY: [place] [address] PATHOLOGIST EXCHANGE MECHANIC KATARINA WILKERSON M.D. Performed By: #### L DARYA ALEXIS #### [address] Prothrombin Time INRon 01-05 INR Coag (PPP) [Relative time] 2.0 {INR} Normal [facility] Comment on above: Result Comment: INR Therapeutic Range A) Pre- and Peroperative OAT started two weeks before surgery. NOT HIP SURGERY: 1.5 - 2.5 HIP SURGERY: 2 - 3 B) Primary and secondary prevention of venous THROMBOSIS: 2 - 3 C) Active venous thrombosis, pulmonary embolism and prevention of recurrent venous thrombosis: 2 - 3 D) Prevention of arterial thromboembolism including patients with mechanical heart valves: 3 - 4.5 PERFORMED BY: [place] [address] PATHOLOGIST EXCHANGE MECHANIC KATARINA WILKERSON M.D. Performed By: #### L DARYA ALEXIS #### [place] [id number] [facility] PT Coag (PPP) [Time] 22.3 s High 9.0-12.9 [facility] Comment on above: Result Comment: A he matocrit value greater than 55% may lead to inaccurate results in coagulation testing. Patients having hematocrit values >55% require a special collection tube for coagulation studies. Please contact the laboratory at [phone] for redraw instructions. Performed By: #### L DARYA ALEXIS #### [place] [id number] [facility] Alanine aminotransferase [En zymatic activity/volume] in Serum or PlasmaOrdered By: Tyson Conn on 01-05-2024 ALT [Catalytic activity/Vol] Alanine aminotransferase [Enzymatic activity/volume] in Serum or Plasma 752 [facility] Albumin [Mass/volume] in Ser um or Plasma by Bromocresol green (BCG) dye binding methoOrdered By: Tyson Conn on 01-05-2024 Albumin BCG dye [Mass/Vol] Albumin [Mass/volume] in Serum or Plasma by Bromocresol green (BCG) dye binding metho Low 3.5-5.7 [facility] Alkaline phosphatase [Enzyma tic activity/volume] in Serum or PlasmaOrdered By: Tyson Conn on 01-05-2024 ALP [Catalytic activity/Vol] Alkaline phosphatase [Enzymatic activity/volume] in Serum or Plasma 34-104 [facility] Aspartate aminotransferase [ Enzymatic activity/volume] in Serum or PlasmaOrdered By: Tyson Conn on 01-05-2024 AST [Catalytic activity/Vol] Aspartate aminotransferase [Enzymatic activity/volume] in Serum or Plasma 13-39 [facility] Basophils Auto (Bld) [#/Vol] Ordered By: Tyson Conn on 01-05-2024 Basophils (Bld) [#/Vol] Automated basophil count 0.0-0.2 [facility] Basophils/100 WBC Auto (Bld) Ordered By: Tyson Conn on 01-05-2024 Basophils/100 WBC (Bld) Automated basophil % . [facility] Bilirubin.total [Mass/volume ] in Serum or PlasmaOrdered By: Tyson Conn on 01-05-2024 Bilirubin [Mass/Vol] Bilirubin.total [Mass/volume] in Serum or Plasma 0.3-1.0 [facility] Calcium [Mass/volume] in Ser um or PlasmaOrdered By: Tyson Conn on 01-05-2024 Calcium [Mass/Vol] Calcium [Mass/volume ] in Serum or Plasma 8.6-10.3 [facility] Carbon dioxide, total [Moles /volume] in Serum or PlasmaOrdered By: Tyson Conn on 01-05-2024 CO2 [Moles/Vol] Carbon dioxide, tota l [Moles/volume] in Serum or Plasma 21.0-31.0 [facility] Chloride [Moles/volume] in S haily or PlasmaOrdered By: Tyson Conn on 01-05-2024 Chloride [Moles/Vol] Chloride [Moles/vol ume] in Serum or Plasma Low 98-107 [facility] Complete Blood Count Auto Di ffon 01-05-2024 Basophils (Bld) [#/Vol] 0.1 10*3/uL Normal 0.0-0.2 [facility] Comment on above: Result Comment: PERF ORMED BY: [place] [address] PATHOLOGIST EXCH[employer] MECHANIC KATARINA WILKERSON M.D. Performed By: #### C OVID19 FLU RSV, CEPHEID NEG #### [address] Basophils/100 WBC (Bld) 1.2 % Normal . [facility] Comment on above: Performed By: #### C OVID19 FLU RSV, CEPHEID NEG #### [place] [address] [place] Eosinophils (Bld) [#/Vol] 0.0 10*3/uL Normal 0.0-0.45 [facility] Comment on above: Performed By: #### C OVID19 FLU RSV, CEPHEID NEG #### [address] Eosinophils/100 WBC (Bld) 0.2 % Normal . [facility] Comment on above: Performed By: #### C OVID19 FLU RSV, CEPHEID NEG #### [address] Erythrocyte distribution width (RBC) [Ratio] 17.4 % High 11.9-15.3 [facility] Comment on above: Performed By: #### C OVID19 FLU RSV, CEPHEID NEG #### [address] Hematocrit (Bld) [Volume fraction] 35.9 % Normal 34.0-46.4 [facility] Comment on above: Performed By: #### C OVID19 FLU RSV, CEPHEID NEG #### [address] Hemoglobin (Bld) [Mass/Vol] 11.6 g/dL Low 11.8-15.4 [facility] Comment on above: Performed By: #### C OVID19 FLU RSV, CEPHEID NEG #### [address] Lymphocytes (Bld) [#/Vol] 1.0 10*3/uL Normal 1.00-4.8 [facility] Comment on above: Performed By: #### C OVID19 FLU RSV, CEPHEID NEG #### [address] Lymphocytes/100 WBC (Bld) 11.4 % Normal . [facility] Comment on above: Performed By: #### C OVID19 FLU RSV, CEPHEID NEG #### [address] MCH (RBC) [Entitic mass] 29.5 pg Normal 24.7-34.3 [facility] Comment on above: Performed By: #### C OVID19 FLU RSV, CEPHEID NEG #### [address] MCV (RBC) [Entitic vol] 91.2 fL Normal 80-100 [facility] Comment on above: Performed By: #### C OVID19 FLU RSV, CEPHEID NEG #### [address] Mean Corpuscular HGB Conc 32.4 g/dL Normal 32.0-35.0 [facility] Comment on above: Performed By: #### C OVID19 FLU RSV, CEPHEID NEG #### [place] [address] [place] Monocytes (Bld) [#/Vol] 0.4 10*3/uL Normal 0.0-0.8 [facility] Comment on above: Performed By: #### C OVID19 FLU RSV, CEPHEID NEG #### [place] [address] [place] Monocytes/100 WBC (Bld) 20.38 % High 0.00-20.00 [facility] Comment on above: Result Comment: For adults in ED, MDW > 20.0 may be associated with a higher risk of sepsis during the first 12 hrs of hospital admission Performed By: #### C OVID19 FLU RSV, CEPHEID NEG #### [place] [address] [place] Monocytes/100 WBC (Bld) 3.9 % Normal . [facility] Comment on above: Performed By: #### C OVID19 FLU RSV, CEPHEID NEG #### [place] [address] [place] Neutrophils (Bld) [#/Vol] 7.6 10*3/uL Normal 1.8-7.7 [facility] Comment on above: Performed By: #### C OVID19 FLU RSV, CEPHEID NEG #### [place] [address] [place] Neutrophils/100 WBC (Bld) 83.3 % Normal . [facility] Comment on above: Performed By: #### C OVID19 FLU RSV, CEPHEID NEG #### [place] [address] [place] NRBC% 0.1 /100{WBC} Normal 0-0.5 [facility] Comment on above: Performed By: #### C OVID19 FLU RSV, CEPHEID NEG #### [address] Platelet mean volume (Bld) [Entitic vol] 7.1 fL Normal 6.3-10.7 [facility] Comment on above: Performed By: #### C OVID19 FLU RSV, CEPHEID NEG #### [address] Platelets (Bld) [#/Vol] 292 10*3/uL Normal 150-450 [facility] Comment on above: Performed By: #### C OVID19 FLU RSV, CEPHEID NEG #### [address] RBC (Bld) [#/Vol] 3.94 10*6/uL Normal 3.60-5.00 [facility] Comment on above: Performed By: #### C OVID19 FLU RSV, CEPHEID NEG #### [address] WBC (Bld) [#/Vol] 9.1 10*3/uL Normal 3.8-11.6 [facility] Comment on above: Performed By: #### C OVID19 FLU RSV, CEPHEID NEG #### [address] Comprehensive Metabolic Pane priya 01-05-2024 Albumin [Mass/Vol] 3.0 g/dL Low 3.5-5.7 [facility] Comment on above: Performed By: #### C OVID19 FLU RSV, CEPHEID NEG #### [address] Albumin/Globulin [Mass ratio] 0.9 {ratio} Normal [facility] Comment on above: Performed By: #### C OVID19 FLU RSV, CEPHEID NEG #### [address] ALP [Catalytic activity/Vol] 99 U/L Normal 34-104 [facility] Comment on above: Performed By: #### C OVID19 FLU RSV, CEPHEID NEG #### [facility] [address] ALT [Catalytic activity/Vol] 11 U/L Normal 7-52 [facility] Comment on above: Performed By: #### C OVID19 FLU RSV, CEPHEID NEG #### [address] Anion gap [Moles/Vol] 24.9 mmol/L High 6.0-15.[address] [facility] Comment on above: Performed By: #### C OVID19 FLU RSV, CEPHEID NEG #### [address] AST [Catalytic activity/Vol] 16 U/L Normal 13-39 [facility] Comment on above: Performed By: #### C OVID19 FLU RSV, CEPHEID NEG #### [address] Bilirubin [Mass/Vol] 0.7 mg/dL Normal 0.3-1.0 [facility] Comment on above: Performed By: #### C OVID19 FLU RSV, CEPHEID NEG #### [place] [address] [place] Calcium [Mass/Vol] 9.3 mg/dL Normal 8.6-10.3 [facility] Comment on above: Performed By: #### C OVID19 FLU RSV, CEPHEID NEG #### [place] [address] [place] Chloride [Moles/Vol] 93 mmol/L Low 98-107 [facility] Comment on above: Performed By: #### C OVID19 FLU RSV, CEPHEID NEG #### [place] [address] [place] CO2 [Moles/Vol] 23.1 mmol/L Normal 21.0-31.0 [facility] Comment on above: Performed By: #### C OVID19 FLU RSV, CEPHEID NEG #### [place] [address] [place] Creatinine [Mass/Vol] 11.46 mg/dL High 0.60-1.20 [facility] Comment on above: Performed By: #### C OVID19 FLU RSV, CEPHEID NEG #### [place] [address] [place] Creatinine Clr Calc Pharmacy 4.62 Normal [facility] Comment on above: Performed By: #### C OVID19 FLU RSV, CEPHEID NEG #### [place] [address] [place] GFR/1.73 sq M.predicted MDRD (S/P/Bld) [Vol rate/Area] 3.227 mL/min/{1.73_m2} Normal [facility] Comment on above: Performed By: #### C OVID19 FLU RSV, CEPHEID NEG #### [place] [address] [place] Globulin (S) [Mass/Vol] 3.5 g/dL Normal [facility] Comment on above: Performed By: #### C OVID19 FLU RSV, CEPHEID NEG #### [address] Glucose [Mass/Vol] 114 mg/dL High 70-100 [facility] Comment on above: Result Comment: [place] Glucose Reference Range is dependent on time and content of last meal. Glucose of more than 200 mg/dL in a nonstressed, ambulatory subject supports the diagnosis of Diabetes Mellitus. ADA recommended reference range Performed By: #### C OVID19 FLU RSV, CEPHEID NEG #### [place] [address] [place] Potassium [Moles/Vol] 6.0 mmol/L High 3.5-5.1 [facility] Comment on above: Performed By: #### C OVID19 FLU RSV, CEPHEID NEG #### [place] [address] [place] Protein [Mass/Vol] 6.5 g/dL Normal 6.4-8.9 [facility] Comment on above: Performed By: #### C OVID19 FLU RSV, CEPHEID NEG #### [place] [address] [place] Sodium [Moles/Vol] 135 mmol/L Low 136-145 [facility] Comment on above: Performed By: #### C OVID19 FLU RSV, CEPHEID NEG #### [place] [address] [place] Urea nitrogen [Mass/Vol] 58 mg/dL High 7-25 [facility] Comment on above: Performed By: #### C OVID19 FLU RSV, CEPHEID NEG #### [facility] [address] [place] [address] [place] Creatine Kinaseon 01-05-2024 CK [Catalytic activity/Vol] 29 U/L Low 30-223 [facility] Comment on above: Performed By: #### C OVID19 FLU RSV, CEPHEID NEG #### [address] Creatine kinase [Enzymatic a ctivity/volume] in Serum or PlasmaOrdered By: Tyson Conn on 01-05-2024 CK [Catalytic activity/Vol] Creatine kinase [Enzymatic activity/volume] in Serum or Plasma Low 30-223 [facility] Creatinine [Mass/volume] in Serum or PlasmaOrdered By: Tyson Conn on 01-05-2024 Creatinine [Mass/Vol] Creatinine [Mass/v olume] in Serum or Plasma High 0.60-1.20 [facility] ECG 12 lead ECGon 01-05-2024 ECG 12 lead ECG [place] [address] Electrocardiograph Report Signed Patient: Edita Costa MR#: [id number] : 1950 Acct:[id number] Age/Sex: 73 / F ADM Date: 01/05/24 Loc: Room: [address] [place] [address] Type: ADM IN Attending Dr: Coreen Jaffe MD Ordering Provider: Tyson Conn Jr, MD Date of Service: 01/05/2412/18/333 ECG/ECG 12 lead ECG: DYSRHYTHMIA Copies to: Test Reason : Blood Pressure : 126/100 mmHG Vent. Rate : 155 BPM Atrial Rate : 159 BPM P-R Int : * ms QRS Dur : 154 ms QT Int : 318 ms P-R-T Axes : * -19 181 degrees QTcB Int : 510 ms Atrial fibrillation with rapid ventricular response Left bundle branch block Abnormal ECG When compared with ECG of 25-Oct-2023 02:27, Vent. rate has increased by 52 bpm Left bundle branch block has replaced Incomplete left bundle branch block Confirmed by LEATHA UREÑA MD ([id number]) on 01/06/2024 7:18:26 PM Referred By: Electronically Signed By: LEATHA UREÑA MD Transcribed By: MUS Signed By Leatha Ureña MD 1 03/07/231917 Normal [facility] Eosinophils Auto (Bld) [#/Vo l]Ordered By: Tyson Conn on 01-05-2024 Eosinophils (Bld) [#/Vol] Automated eosinophil count 0.0-0.45 [facility] Eosinophils/100 WBC Auto (Bl d)Ordered By: Tyson Conn on 01-05-2024 Eosinophils/100 WBC (Bld) Automated eosinophil % . [facility] Erythrocyte distribution wid th Auto (RBC) [Ratio]Ordered By: Tyson Conn on 01-05-2024 Erythrocyte distribution width (RBC) [Ratio] Erythrocyte distribution width [Ratio] by Automated count High 11.9-15.3 [facility] Globulin Calc (S) [Mass/Vol] Ordered By: Tyson Conn on 01-05-2024 Globulin (S) [Mass/Vol] Serum globulin measurement by calculation (mass/volume) [facility] Glucose Poct Glucometerson 1 03-06-2023 Glucose [Mass/Vol] 101 mg/dL Normal [facility] Comment on above: Result Comment: [facility] Glucose Reference Range is dependent on time and content of last meal. Glucose of more than 200 mg/dL in a nonstressed, ambulatory subject supports the diagnosis of Diabetes Mellitus. PERFORMED BY: [place] [address] PATHOLOGIST [employer]CH[employer] MECHANIC KATARINA WILKERSON M.D. Performed By: #### C OVID19 FLU RSV, CEPHEID NEG #### [address] Glucose [Mass/Vol] 84 mg/dL Normal [facility] Comment on above: Result Comment: [place] om Glucose Reference Range is dependent on time and content of last meal. Glucose of more than 200 mg/dL in a nonstressed, ambulatory subject supports the diagnosis of Diabetes Mellitus. PERFORMED BY: [place] [address] PATHOLOGIST EXCH[employer] MECHANIC KATARINA WILKERSON M.D. Performed By: #### C OVID19 FLU RSV, CEPHEID NEG #### [place] [address] [place] Glucose [Mass/Vol] 88 mg/dL Normal [facility] Comment on above: Result Comment: [place] om Glucose Reference Range is dependent on time and content of last meal. Glucose of more than 200 mg/dL in a nonstressed, ambulatory subject supports the diagnosis of Diabetes Mellitus. PERFORMED BY: [place] [address] PATHOLOGIST EXCHANGE MECHANIC KATARINA WILKERSON M.D. Performed By: #### C OVID19 FLU RSV, CEPHEID NEG #### [place] [address] [place] Commemt1 Glu2: Cleaned Meter Normal [facility] Comment on above: Result Comment: PERF ORMED BY: [place] [address] PATHOLOGIST EXCH[employer] MECHANIC KATARINA WILKERSON M.D. Performed By: #### L DARYA ALEXIS #### [place] [address] [place] Glucose [Mass/Vol] 129 mg/dL Normal [facility] Comment on above: Result Comment: [place] om Glucose Reference Range is dependent on time and content of last meal. Glucose of more than 200 mg/dL in a nonstressed, ambulatory subject supports the diagnosis of Diabetes Mellitus. Performed By: #### L PHOEBE ALEXISLD #### [place] [address] [place] Glucose [Mass/volume] in Ser um or PlasmaOrdered By: Tyson Conn on 01-05-2024 Glucose [Mass/Vol] Glucose [Mass/volume ] in Serum or Plasma High 70-100 [facility] Comment on above: ADA recommended refe rence rangeRandom Glucose Reference Range is dependent on time and content of last meal. Glucose of more than 200 mg/dL in a nonstressed, ambulatory subject supports the diagnosis of Diabetes Mellitus. Hematocrit Auto (Bld) [Volum e fraction]Ordered By: Tyson Conn on 01-05-2024 Hematocrit (Bld) [Volume fraction] Hematocrit [Volume Fraction] of Blood by Automated count 34.0-46.4 [facility] Hemoglobin [Mass/volume] in BloodOrdered By: Tyson Conn on 01-05-2024 Hemoglobin (Bld) [Mass/Vol] Hemoglobin [Mass/volume] in Blood Low 11.8-15.4 [facility] INR in Platelet poor plasma by Coagulation assayOrdered By: Tyson Conn on 01-05-2024 INR Coag (PPP) [Relative time] INR in Platelet poor plasma by Coagulation assay [facility] Comment on above: INR Therapeutic [...] with mechanical heart valves: 3 - 4.5 Leukocytes [#/volume] correc hermilo for nucleated erythrocytes in Blood by Automated counOrdered By: Tyson Conn on 01-05-2024 WBC corrected for nucl RBC Auto (Bld) [#/Vol] Leukocytes [#/volume] corrected for nucleated erythrocytes in Blood by Automated coun 3.8-11.6 [facility] Lymphocytes Auto (Bld) [#/Vo l]Ordered By: Tyson Conn on 01-05-2024 Lymphocytes (Bld) [#/Vol] Lymphocytes [#/volume] in Blood by Automated count 1.00-4.8 [facility] Lymphocytes/100 WBC Auto (Bl d)Ordered By: Tyson Conn on 01-05-2024 Lymphocytes/100 WBC (Bld) Lymphocytes/100 leukocytes in Blood by Automated count . [facility] MCH Auto (RBC) [Entitic mass ]Ordered By: Tyson Conn on 01-05-2024 MCH (RBC) [Entitic mass] MCH [Entitic mass] by Automated count 24.7-34.3 [facility] MCHC Auto (RBC) [Mass/Vol]Or dered By: Tyson Conn on 01-05-2024 MCHC (RBC) [Mass/Vol] MCHC [Mass/volume] by Automated count 32.0-35.0 [facility] MCV Auto (RBC) [Entitic vol] Ordered By: Tyson Conn on 01-05-2024 MCV (RBC) [Entitic vol] MCV [Entitic volume] by Automated count 80-100 [facility] Magnesiumon 01-05-2024 Magnesium [Mass/Vol] 2.3 mg/dL Normal 1.9-2.7 [facility] Comment on above: Result Comment: PERF ORMED BY: [place] [address] PATHOLOGIST EXCH[employer] MECHANIC KATARINA WILKERSON M.D. Performed By: #### C OVID19 FLU RSV, CEPHEID NEG #### [address] Magnesium [Mass/volume] in S haily or PlasmaOrdered By: Tyson Conn on 01-05-2024 Magnesium [Mass/Vol] Magnesium [Mass/vol ume] in Serum or Plasma 1.9-2.7 [facility] Monocyte distribution width [Entitic volume] in Blood by AutomatedOrdered By: Tyson Conn on 01-05-2024 Monocyte distribution width Auto (Bld) [Entitic vol] Monocyte distribution width [Entitic volume] in Blood by Automated High 0.00-20.00 [facility] Comment on above: For adults in ED, MD W > 20.0 may be associated with a higher risk of sepsis during the first 12 hrs of hospital admission Monocytes Auto (Bld) [#/Vol] Ordered By: Tyson Conn on 01-05-2024 Monocytes (Bld) [#/Vol] Automated blood monocyte count 0.0-0.8 [facility] Monocytes/100 WBC Auto (Bld) Ordered By: Tyson Conn on 01-05-2024 Monocytes/100 WBC (Bld) Automated monocyte % . [facility] Neutrophils Auto (Bld) [#/Vo l]Ordered By: Tyson Conn on 01-05-2024 Neutrophils (Bld) [#/Vol] Neutrophils [#/volume] in Blood by Automated count 1.8-7.7 [facility] Neutrophils/100 WBC Auto (Bl d)Ordered By: Tyson Conn on 01-05-2024 Neutrophils/100 WBC (Bld) Automated neutrophil % . [facility] No Panel InformationOrdered By: Curtis Lino on 01-05-2024 Bedside Glucose Comment Glu2: cleaned meter [facility] No Panel InformationOrdered By: Tyson Conn on 01-05-2024 Estimated GFR (CKD-EPI) 3.227 mL/Min [facility] Creatinine Clearance (Chem 4.62 [facility] Nucleated erythrocytes [Pres ence] in Blood by Automated countOrdered By: Tyson Conn on 01-05-2024 Nucleated RBC Auto Ql (Bld) Nucleated erythrocytes [Presence] in Blood by Automated count 0-0.5 [facility] Partial Thromboplastin Timeo n 01-05-2024 aPTT Coag (Bld) [Time] 34.8 s Normal 25.1-36.5 [facility] Comment on above: Result Comment: A he matocrit value greater than 55% may lead to inaccurate results in coagulation testing. Patients having hematocrit values >55% require a special collection tube for coagulation studies. Please contact the laboratory at [phone] for redraw instructions. PERFORMED BY: [place] [address] PATHOLOGIST EXCHANGE MECHANIC KATARINA WILKERSON M.D. Performed By: #### C OVID19 FLU RSV, CEPHEID NEG #### [facility] [address] [place] [address] Phosphate [Mass/volume] in S haily or PlasmaOrdered By: Tyson Conn on 01-05-2024 Phosphate [Mass/Vol] Phosphate [Mass/vol ume] in Serum or Plasma High 2.5-4.5 [facility] Phosphoruson 01-05-2024 Phosphate [Mass/Vol] 7.2 mg/dL High 2.5-4.5 [facility] Comment on above: Performed By: #### C OVID19 FLU RSV, CEPHEID NEG #### [address] [place] [address] [facility] Platelet mean volume Auto (B ld) [Entitic vol]Ordered By: Tyson Conn on 01-05-2024 Platelet mean volume (Bld) [Entitic vol] Platelet mean volume [Entitic volume] in Blood by Automated count 6.3-10.7 [facility] Platelets Auto (Bld) [#/Vol] Ordered By: Tyson Conn on 01-05-2024 Platelets (Bld) [#/Vol] Platelets [#/volume] in Blood by Automated count 150-450 [facility] Potassium [Moles/volume] in Serum or PlasmaOrdered By: Tyson Conn on 01-05-2024 Potassium [Moles/Vol] Potassium [Moles/v olume] in Serum or Plasma High 3.5-5.1 [facility] Protein [Mass/volume] in Ser um or PlasmaOrdered By: Tyson Conn on 01-05-2024 Protein [Mass/Vol] Protein [Mass/volume ] in Serum or Plasma 6.4-8.9 [facility] Prothrombin Time INRon 01-04 INR Coag (PPP) [Relative time] 1.7 {INR} Normal [facility] Comment on above: Result Comment: INR Therapeutic Range A) Pre- and Peroperative OAT started two weeks before surgery. NOT HIP SURGERY: 1.5 - 2.5 HIP SURGERY: 2 - 3 B) Primary and secondary prevention of venous THROMBOSIS: 2 - 3 C) Active venous thrombosis, pulmonary embolism and prevention of recurrent venous thrombosis: 2 - 3 D) Prevention of arterial thromboembolism including patients with mechanical heart valves: 3 - 4.5 Performed By: #### C OVID19 FLU RSV, CEPHEID NEG #### [facility] [address] [id number] [facility] PT Coag (PPP) [Time] 19.7 s High 9.0-12.9 [facility] Comment on above: Result Comment: A he matocrit value greater than 55% may lead to inaccurate results in coagulation testing. Patients having hematocrit values >55% require a special collection tube for coagulation studies. Please contact the laboratory at [phone] for redraw instructions. Performed By: #### C OVID19 FLU RSV, CEPHEID NEG #### [facility] [address] Prothrombin time (PT)Ordered By: Tyson Conn on 01-05-2024 PT Coag (PPP) [Time] Prothrombin time (PT) High 9.0- 12.9 [facility] Comment on above: A hematocrit value g reater than 55% may lead to inaccurate results in coagulation testing. Patients having hematocrit values >55% require a special collection tube for coagulation studies. Please contact the laboratory at [phone] for redraw instructions. RBC Auto (Bld) [#/Vol]Ordere d By: Tyson Conn on 01-05-2024 RBC (Bld) [#/Vol] Erythrocytes [#/volu me] in Blood by Automated count 3.60-5.00 [facility] Serum or plasma albumin/glob ulin mass ratioOrdered By: Tyson Conn on 01-05-2024 Albumin/Globulin [Mass ratio] Serum or plasma albumin/globulin mass ratio [facility] Serum or plasma anion gap de terminationOrdered By: Tyson Conn on 01-05-2024 Anion gap [Moles/Vol] Serum or plasma an ion gap determination High 6.0-15.0 [facility] Sodium [Moles/volume] in Ser um or PlasmaOrdered By: yTson Conn on 01-05-2024 Sodium [Moles/Vol] Sodium [Moles/volume ] in Serum or Plasma Low 136-145 [facility] Troponin I High Sensitivityo n 01-05-2024 Troponin I High Sensitivity 62.1 pg/mL Off scale high 0.0-15.0 [facility] Comment on above: Result Comment: Crit ical Result : Called to and read back by: INA SOLER at: 01/05/2024 05:10:01 by:BRANDON PERFORMED BY: [place] [address] PATHOLOGIST EXCHANGE MECHANIC KATARINA WILKERSON M.D. Performed By: #### C OVID19 FLU RSV, CEPHEID NEG #### [facility] [address] [place], [place] [id number] [facility] Troponin I.cardiac [Mass/vol ume] in Serum or Plasma by Detection limit <= 0.01 ng/Ordered By: Tyson Conn on 01-05-2024 Troponin I.cardiac DL <= 0.01 ng/mL [Mass/Vol] Troponin I.cardiac [Mass/volume] in Serum or Plasma by Detection limit <= 0.01 ng/ Critically high 0.0-15.0 [facility] Comment on above: Critical Result : Ca lled to and read back by: INA SOLER at: 01/05/2024 05:10:01 by:BRANDON Urea nitrogen [Mass/volume] in Serum or PlasmaOrdered By: Tyson Conn on 01-05-2024 Urea nitrogen [Mass/Vol] Urea nitrogen [Mass/volume] in Serum or Plasma High 7-25 [facility] WBC Auto (Bld) [#/Vol]Ordere d By: Tyson Conn on 01-05-2024 WBC (Bld) [#/Vol] Leukocytes [#/volume ] in Blood by Automated count 3.8-11.6 [facility] X-ray reportOrdered By: Hitesh Pat on 01-05-2024 Study report [place] [address] XRay Report Signed Patient: Edita Costa MR# : [id number] : 1950 Acct:[id number] Age/Sex: 73 / F ADM Date: 4 Loc: Room: [address] [place] [address] Type: ADM IN Attending Dr: Ricky Garcia MD Copies to: MD Tyson Herbert Jr, MD~ Ordering Provider: Tyson Conn Jr, MD Date of Service: 01/05/24 XR/XR chest 1V portable: DYSRHYTHMIA XR chest 1V portable 01/05/2024 3:37 AM SIGNS AND SYMPTOMS: Chest pain, A. fib, and tachycardia PROTOCOL: Frontal radiograph of the chest COMPARISON: 10/24/2023 FINDINGS: The trachea is midline. Atherosclerotic changes are noted in the thoracic aorta. The heart and mediastinal structures are within normal limits. Airspaceopacities and pleural effusions are present, right greater than left. The bony thorax is intact. XR/XR chest 1V portable IMPRESSION: Findings suggest congestive heart failure with pulmonary edema and bilateral pleural effusions. This is worse when compared to the prior exam. Impression dictated by: Hitesh Pat M.D.01/05/2024 12:01 PM Dictation Location: RADIO-PC-17 Transcribed By: MERVAT 01/05/241200 Dictated By: Hitesh Pat II, MD 01/05/241158 Signed By: 01/05/241200 [facility] Work Phone: XR chest 1V portableon 01-04 XR chest 1V portable [facility] [place] [address] [place] [address] XRay Report Signed Patient: Edita Costa MR#: [id number] : 1950 Acct:[id number] Age/Sex: 73 / F ADM Date: 01/05/24 Loc: Room: [address] [place] [address] Type: ADM IN Attending Dr: Ricky Garcia MD Copies to: MD Tyson Herbert Jr, MD Ordering Provider: Tyson Conn Jr, MD Date of Service: 01/05/24 XR/XR chest 1V portable: DYSRHYTHMIA XR chest 1V portable 01/05/2024 3:37 AM SIGNS AND SYMPTOMS: Chest pain, A. fib, and tachycardia PROTOCOL: Frontal radiograph of the chest COMPARISON: 10/24/2023 FINDINGS: The trachea is midline. Atherosclerotic changes are noted in the thoracic aorta. The heart and mediastinal structures are within normal limits. Airspace opacities and pleural effusions are present, right greater than left. The bony thorax is intact. XR/XR chest 1V portable IMPRESSION: Findings suggest congestive heart failure with pulmonary edema and bilateral pleural effusions. This is worse when compared to the prior exam. Impression dictated by: Hitesh Pat M.D.01/05/2024 12:01 PM Dictation Location: RADIO-PC-17 Transcribed By: MERVAT 01/05/241200 Dictated By: Hitesh Pat II, MD 01/05/241158 Signed By: 01/05/24 120 Normal [facility] aPTT in Platelet poor plasma by Coagulation assayOrdered By: Tyson Conn on 01-05-2024 aPTT Coag (PPP) [Time] Activated partial thromboplastin time (aPTT) in platelet poor plasma by coagulation a 25.1-36.5 [facility] Comment on above: A hematocrit value g reater than 55% may lead to inaccurate results in coagulation testing. Patients having hematocrit values >55% require a special collection tube for coagulation studies. Please contact the laboratory at [phone] for redraw instructions. 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 Flow velocities are severely reduced. No narrowing or thrombus is identified. US/US AV Fistula IMPRESSION: As above. Impression dictated by: Dillon Wilson MD12/13/2023 9:34 AM Dictation Location: [place] [address] Tech: Judy Turner Transcribed By: MERVAT 12/13/23933 Dictated By: Dillon Wilson MD 12/13/2333 Signed By: 12/13/23933 Normal [facility] Anisocytosis LM Ql (Bld)Orde red By: Vinh Scott on 10-30-2023 Anisocytosis Ql (Bld) Anisocytosis [Pres ence] in Blood by Light microscopy [facility] Anisocytosis [Presence] in B lood by Light microscopyOrdered By: Vinh Scott on 10-30-2023 Anisocytosis Ql (Bld) Moderate Normal [facility] Comment on above: Performed By: #### L DARYA ALEXIS #### [address] Automated basophil %Ordered By: Obaydah Daromar on 10-30-2023 Basophils/100 WBC (Bld) 0.4 % Normal . [facility] Comment on above: Performed By: #### L DARYA ALEXIS #### [address] Automated basophil countOrde red By: Obaydah Daromar on 10-30-2023 Basophils (Bld) [#/Vol] 0.0 10*3/uL Normal 0.0-0.2 [facility] Comment on above: Performed By: #### L DARYA ALEXIS #### [address] Automated blood monocyte cou ntOrdered By: Obaydah Daromar on 10-30-2023 Monocytes (Bld) [#/Vol] 0.7 10*3/uL Normal 0.0-0.8 [facility] Comment on above: Performed By: #### L DARYA ALEXIS #### [address] Automated eosinophil %Ordere d By: Obaydah Daromar on 10-30-2023 Eosinophils/100 WBC (Bld) 2.6 % Normal . [facility] Comment on above: Performed By: #### L DARYA ALEXIS #### [address] Automated eosinophil countOr dered By: Obaydah Daromar on 10-30-2023 Eosinophils (Bld) [#/Vol] 0.3 10*3/uL Normal 0.0-0.45 [facility] Comment on above: Performed By: #### L DARYA ALEXIS #### [address] Automated monocyte %Ordered By: Obaydah Daromar on 10-30-2023 Monocytes/100 WBC (Bld) 7.0 % Normal . [facility] Comment on above: Performed By: #### L DARYA ALEXIS #### [facility] [address] [place] [address] Automated neutrophil %Ordere d By: Vinh Scott on 10-30-2023 Neutrophils/100 WBC (Bld) 81.7 % Normal . [facility] Comment on above: Performed By: #### L DARYA ALEXIS #### [address] Basic Metabolic Panelon Creatinine Clr Calc Pharmacy 10.61 Normal [facility] Comment on above: Result Comment: PERF ORMED BY: [place] [address] PATHOLOGIST EXCHANGE MECHANIC KATARINA WILKERSON M.D. Performed By: #### L DARYA ALEXIS #### [address] GFR/1.73 sq M.predicted MDRD (S/P/Bld) [Vol rate/Area] 8.178 mL/min/{1.73_m2} Normal [facility] Comment on above: Performed By: #### L DARYA ALEXIS #### [address] Basophils Auto (Bld) [#/Vol] Ordered By: Vinh Scott on 10-30-2023 Basophils (Bld) [#/Vol] Automated basophil count 0.0-0.2 [facility] Basophils/100 WBC Auto (Bld) Ordered By: Vinh Cuevasr on 10-30-2023 Basophils/100 WBC (Bld) Automated basophil % . [facility] [place] cells [Presence] in Blo od by Light microscopyOrdered By: Vinh Scott on 10-30-2023 [place] cells LM Ql (Bld) Slight [facility] [place] cells LM Ql (Bld) [place] cells [Prese nce] in Blood by Light microscopy [facility] Calcium [Mass/volume] in Ser um or PlasmaOrdered By: Vinh Scott on 10-30-2023 Calcium [Mass/Vol] 9.0 mg/dL Normal 8.6-10.3 [facility] Comment on above: Performed By: #### L DARYA ALEXIS #### [facility] [address] [place] [address] [place] Calcium [Mass/Vol] Calcium [Mass/volume ] in Serum or Plasma 8.6-10.3 [facility] Capillary blood glucose hong urement by glucometer (mass/volume)Ordered By: Vinh Scott on 10-30-2023 Glucose [Mass/Vol] 101 mg/dL Normal [facility] Comment on above: Random Glucose Refer ence Range is dependent on time and content of last meal. Glucose of more than 200 mg/dL in a nonstressed, ambulatory subject supports the diagnosis of Diabetes Mellitus. Result Comment: [place] om Glucose Reference Range is dependent on time and content of last meal. Glucose of more than 200 mg/dL in a nonstressed, ambulatory subject supports the diagnosis of Diabetes Mellitus. Performed By: #### L IPASE, BMP, HEPATIC, SCAN CBC #### [facility] [address] [place] [address] [place] Carbon dioxide, total [Moles /volume] in Serum or PlasmaOrdered By: Vinh Scott on 10-30-2023 CO2 [Moles/Vol] 27.1 mmol/L Normal 21.0-31.0 [facility] Comment on above: Performed By: #### L DARYA ALEXIS #### [facility] [address] [place] [address] [place] CO2 [Moles/Vol] Carbon dioxide, tota l [Moles/volume] in Serum or Plasma 21.0-31.0 [facility] Chloride [Moles/volume] in S haily or PlasmaOrdered By: Vinh Scott on 10-30-2023 Chloride [Moles/Vol] 91 mmol/L Low 98-107 [facility] Comment on above: Performed By: #### L DARYA ALEXIS #### [facility] [address] [place] [address] [place] Chloride [Moles/Vol] Chloride [Moles/vol ume] in Serum or Plasma Low 98-107 [facility] Creatinine [Mass/volume] in Serum or PlasmaOrdered By: Vinh Cuevasr on 10-30-2023 Creatinine [Mass/Vol] 5.28 mg/dL Significan t change up 0.60-1.20 [facility] Comment on above: Delta: 4.07 on 10/28 Performed By: #### L DARYA ALEXIS #### [facility] [address] Creatinine [Mass/Vol] Creatinine [Mass/v olume] in Serum or Plasma Invalid Interpretation Code 0.60-1.20 [facility] Comment on above: Delta: 4.07 on 10/28 Eosinophils Auto (Bld) [#/Vo l]Ordered By: Vinh Cuevasr on 10-30-2023 Eosinophils (Bld) [#/Vol] Automated eosinophil count 0.0-0.45 [facility] Eosinophils/100 WBC Auto (Bl d)Ordered By: Vinh Cuevasr on 10-30-2023 Eosinophils/100 WBC (Bld) Automated eosinophil % . [facility] Erythrocyte distribution wid th Auto (RBC) [Ratio]Ordered By: Vinh Scott on 10-30-2023 Erythrocyte distribution width (RBC) [Ratio] Erythrocyte distribution width [Ratio] by Automated count High 11.9-15.3 [facility] Erythrocyte distribution wid th [Ratio] by Automated countOrdered By: Vinh Scott on 10-30-2023 Erythrocyte distribution width (RBC) [Ratio] 16.7 % High 11.9-15.3 [facility] Comment on above: Performed By: #### L DARYA ALEXIS #### [facility] [address] Erythrocyte morphology findi ng [Identifier] in BloodOrdered By: Vinh Cuevasr on 10-30-2023 RBC morphology finding Nom (Bld) RBC morphology [facility] Erythrocytes [#/volume] in B lood by Automated countOrdered By: Vinh Scott on 10-30-2023 RBC (Bld) [#/Vol] 2.77 10*6/uL Low 3.60-5.00 [facility] Comment on above: Performed By: #### L DARYA ALEXIS #### [facility] [address] [place] [address] [place] Glucose Glucometer (BldC) [M ass/Vol]Ordered By: Vinh Scott on 10-30-2023 Glucose [Mass/Vol] Capillary blood gluc ose measurement by glucometer (mass/volume) [facility] Comment on above: Random Glucose Refer ence Range is dependent on time and content of last meal. Glucose of more than 200 mg/dL in a nonstressed, ambulatory subject supports the diagnosis of Diabetes Mellitus. Glucose Poct Glucometerson 0 10-30-2023 Commemt1 Glu2: Cleaned Meter Normal [facility] Comment on above: Result Comment: PERF ORMED BY: [address] [place] [address] PATHOLOGIST EXCH[employer] MECHANIC KATARINA WILKERSON M.D. Performed By: #### L IPASE, BMP, HEPATIC, SCAN CBC #### [facility] [address] [place] [address] [place] Glucose [Mass/volume] in Ser um or PlasmaOrdered By: Vinh Scott on 10-30-2023 Glucose [Mass/Vol] 87 mg/dL Normal 70-100 [facility] Comment on above: ADA recommended refe rence rangeRandom Glucose Reference Range is dependent on time and content of last meal. Glucose of more than 200 mg/dL in a nonstressed, ambulatory subject supports the diagnosis of Diabetes Mellitus. Result Comment: [place] om Glucose Reference Range is dependent on time and content of last meal. Glucose of more than 200 mg/dL in a nonstressed, ambulatory subject supports the diagnosis of Diabetes Mellitus. ADA recommended reference range Performed By: #### L DARYA ALEXIS #### [facility] [address] [place] [id number] [place] Glucose [Mass/Vol] Glucose [Mass/volume ] in Serum or Plasma 70-100 [facility] Comment on above: ADA recommended refe rence rangeRandom Glucose Reference Range is dependent on time and content of last meal. Glucose of more than 200 mg/dL in a nonstressed, ambulatory subject supports the diagnosis of Diabetes Mellitus. Hematocrit Auto (Bld) [Volum e fraction]Ordered By: Vinh Scott on 10-30-2023 Hematocrit (Bld) [Volume fraction] Hematocrit [Volume Fraction] of Blood by Automated count Low 34.0-46.4 [facility] Hematocrit [Volume Fraction] of Blood by Automated countOrdered By: Vinh Scott on 10-30-2023 Hematocrit (Bld) [Volume fraction] 25.6 % Low 34.0-46.4 [facility] Comment on above: Performed By: #### L DARYA ALEXIS #### [facility] [address] [place] [address] [place] Hemoglobin [Mass/volume] in BloodOrdered By: Vinh Scott on 10-30-2023 Hemoglobin (Bld) [Mass/Vol] 8.7 g/dL Low 11.8-15.4 [facility] Comment on above: Performed By: #### L DARYA ALEXIS #### [facility] [address] [place] [address] [place] Hemoglobin (Bld) [Mass/Vol] Hemoglobin [Mass/volume] in Blood Low 11.8-15.4 [facility] Hypochromia LM Ql (Bld)Order ed By: Vinh Scott on 10-30-2023 Hypochromia Ql (Bld) Slight [facility] Hypochromia Ql (Bld) Hypochromia [Presen ce] in Blood by Light microscopy [facility] INR in Platelet poor plasma by Coagulation assayOrdered By: Lindsey Hickey on 10-30-2023 INR Coag (PPP) [Relative time] 3.7 {INR} Normal [facility] Comment on above: INR Therapeutic [...] with mechanical heart valves: 3 - 4.5 Result Comment: INR Therapeutic Range A) Pre- and Peroperative OAT started two weeks before surgery. NOT HIP SURGERY: 1.5 - 2.5 HIP SURGERY: 2 - 3 B) Primary and secondary prevention of venous THROMBOSIS: 2 - 3 C) Active venous thrombosis, pulmonary embolism and prevention of recurrent venous thrombosis: 2 - 3 D) Prevention of arterial thromboembolism including patients with mechanical heart valves: 3 - 4.5 PERFORMED BY: [place] [address] PATHOLOGIST EXCH[employer] MECHANIC KATARINA WILKERSON M.D. Performed By: #### L IPASE, BMP, HEPATIC, SCAN CBC #### [facility] [address] [place] [address] INR Coag (PPP) [Relative time] INR in Platelet poor plasma by Coagulation assay [facility] Comment on above: INR Therapeutic [...] with mechanical heart valves: 3 - 4.5 Leukocytes [#/volume] correc hermilo for nucleated erythrocytes in Blood by Automated counOrdered By: Vinh Scott on 10-30-2023 WBC corrected for nucl RBC Auto (Bld) [#/Vol] 10.6 10*3/uL 3.8-11.6 [facility] WBC corrected for nucl RBC Auto (Bld) [#/Vol] Leukocytes [#/volume] corrected for nucleated erythrocytes in Blood by Automated coun 3.8-11.6 [facility] Leukocytes [#/volume] in Blo od by Automated countOrdered By: Vinh Scott on 10-30-2023 WBC (Bld) [#/Vol] 10.6 10*3/uL Normal 3.8-11.6 [facility] Comment on above: Performed By: #### L ACTIC, CUBLD #### [facility] [address] [place] [address] Lymphocytes Auto (Bld) [#/Vo l]Ordered By: Obaydah Daromar on 10-30-2023 Lymphocytes (Bld) [#/Vol] Lymphocytes [#/volume] in Blood by Automated count Low 1.00-4.8 [facility] Lymphocytes [#/volume] in Bl ood by Automated countOrdered By: Obaydah Daromar on 10-30-2023 Lymphocytes (Bld) [#/Vol] 0.9 10*3/uL Low 1.00-4.8 [facility] Comment on above: Performed By: #### L DARYA ALEXIS #### [address] Lymphocytes/100 WBC Auto (Bl d)Ordered By: Obaydah Daromar on 10-30-2023 Lymphocytes/100 WBC (Bld) Lymphocytes/100 leukocytes in Blood by Automated count . [facility] Lymphocytes/100 leukocytes i n Blood by Automated countOrdered By: Obaydah Daromar on 10-30-2023 Lymphocytes/100 WBC (Bld) 8.3 % Normal . [facility] Comment on above: Performed By: #### L DARYA ALEXIS #### [address] MCH Auto (RBC) [Entitic mass ]Ordered By: Obaydah Daromar on 10-30-2023 MCH (RBC) [Entitic mass] MCH [Entitic mass] by Automated count 24.7-34.3 [facility] MCH [Entitic mass] by Automa hermilo countOrdered By: Obaydah Daromar on 10-30-2023 MCH (RBC) [Entitic mass] 31.2 pg Normal 24.7-34.3 [facility] Comment on above: Performed By: #### L DARYA ALEXIS #### [address] MCHC Auto (RBC) [Mass/Vol]Or dered By: Obaydah Daromar on 10-30-2023 MCHC (RBC) [Mass/Vol] 33.8 g/dL 32.0-35.0 [facility] MCHC (RBC) [Mass/Vol] MCHC [Mass/volume] by Automated count 32.0-35.0 [facility] MCV Auto (RBC) [Entitic vol] Ordered By: Obaydah Daromar on 10-30-2023 MCV (RBC) [Entitic vol] MCV [Entitic volume] by Automated count 80-100 [facility] MCV [Entitic volume] by Auto mated countOrdered By: Obaydah Daromar on 10-30-2023 MCV (RBC) [Entitic vol] 92.3 fL Normal 80-100 [facility] Comment on above: Performed By: #### L DARYA ALEXIS #### [facility] [address] Monocytes Auto (Bld) [#/Vol] Ordered By: Obaydah Daromar on 10-30-2023 Monocytes (Bld) [#/Vol] Automated blood monocyte count 0.0-0.8 [facility] Monocytes/100 WBC Auto (Bld) Ordered By: Obaydah Daromar on 10-30-2023 Monocytes/100 WBC (Bld) Automated monocyte % . [facility] Neutrophils Auto (Bld) [#/Vo l]Ordered By: Obaydah Daromar on 10-30-2023 Neutrophils (Bld) [#/Vol] Neutrophils [#/volume] in Blood by Automated count High 1.8-7.7 [facility] Neutrophils [#/volume] in Bl ood by Automated countOrdered By: Obaydah Daromar on 10-30-2023 Neutrophils (Bld) [#/Vol] 8.7 10*3/uL High 1.8-7.7 [facility] Comment on above: Performed By: #### L DARYA ALEXIS #### [facility] [address] Neutrophils/100 WBC Auto (Bl d)Ordered By: Obfedericodah Daromar on 10-30-2023 Neutrophils/100 WBC (Bld) Automated neutrophil % . [facility] No Panel InformationOrdered By: Vinh Scott on 10-30-2023 Bedside Glucose Comment Glu2: cleaned meter [facility] Estimated GFR (CKD-EPI) 8.178 mL/Min [facility] Creatinine Clearance (Chem 10.61 [facility] Nucleated erythrocytes [Pres ence] in Blood by Automated countOrdered By: Vinh Scott on 10-30-2023 Nucleated RBC Auto Ql (Bld) 0.2 /100{WBC} 0-0.5 [facility] Nucleated RBC Auto Ql (Bld) Nucleated erythrocytes [Presence] in Blood by Automated count 0-0.5 [facility] Ovalocyte detectionOrdered B y: Vinh Scott on 10-30-2023 Ovalocytes LM Ql (Bld) [facility] Ovalocytes [Presence] in Blo od by Light microscopyOrdered By: Vinh Scott on 10-30-2023 Ovalocytes LM Ql (Bld) Ovalocyte detection [facility] Platelet adequacy [Presence] in Blood by Light microscopyOrdered By: Vinh Scott on 10-30-2023 Platelets LM Ql (Bld) Normal Normal [facility] Platelets LM Ql (Bld) Platelet adequacy [Presence] in Blood by Light microscopy Normal [facility] Platelet mean volume Auto (B ld) [Entitic vol]Ordered By: Vinh Scott on 10-30-2023 Platelet mean volume (Bld) [Entitic vol] Platelet mean volume [Entitic volume] in Blood by Automated count 6.3-10.7 [facility] Platelet mean volume [Entiti c volume] in Blood by Automated countOrdered By: Vinh Scott on 10-30-2023 Platelet mean volume (Bld) [Entitic vol] 7.8 fL Normal 6.3-10.7 [facility] Comment on above: Performed By: #### L DARYA ALEXIS #### [address] Platelet morphology finding [Identifier] in BloodOrdered By: Vinh Scott on 10-30-2023 Platelet morphology finding Nom (Bld) Normal Normal [facility] Platelet morphology finding Nom (Bld) Platelet morphology finding [Identifier] in Blood Normal [facility] Platelets Auto (Bld) [#/Vol] Ordered By: Vinh Scott on 10-30-2023 Platelets (Bld) [#/Vol] Platelets [#/volume] in Blood by Automated count 150-450 [facility] Platelets [#/volume] in Bloo d by Automated countOrdered By: Vinh Scott on 10-30-2023 Platelets (Bld) [#/Vol] 210 10*3/uL Normal 150-450 [facility] Comment on above: Performed By: #### L DARYA ALEXIS #### [facility] [address] Poikilocytosis [Presence] in Blood by Light microscopyOrdered By: Vinh Scott on 10-30-2023 Poikilocytosis LM Ql (Bld) Slight [facility] Poikilocytosis LM Ql (Bld) Poikilocytosis [Presence] in Blood by Light microscopy [facility] Polychromasia [Presence] in Blood by Light microscopyOrdered By: Vinh Scott on 10-30-2023 Polychromasia LM Ql (Bld) Slight [facility] Polychromasia LM Ql (Bld) Polychromasia [Presence] in Blood by Light microscopy [facility] Potassium [Moles/volume] in Serum or PlasmaOrdered By: Vinh Scott on 10-30-2023 Potassium [Moles/Vol] 4.0 mmol/L Normal 3.5-5.1 [facility] Comment on above: Performed By: #### L DARYA ALEXIS #### [facility] [address] [place] [address] [place] Potassium [Moles/Vol] Potassium [Moles/v olume] in Serum or Plasma 3.5-5.1 [facility] Prothrombin time (PT)Ordered By: Lindsey iHckey on 10-30-2023 PT Coag (PPP) [Time] 41.0 s High 9.0-12.9 [facility] Comment on above: A hematocrit value g reater than 55% may lead to inaccurate results in coagulation testing. Patients having hematocrit values >55% require a special collection tube for coagulation studies. Please contact the laboratory at [phone] for redraw instructions. Result Comment: A he matocrit value greater than 55% may lead to inaccurate results in coagulation testing. Patients having hematocrit values >55% require a special collection tube for coagulation studies. Please contact the laboratory at [phone] for redraw instructions. Performed By: #### L IPASE, BMP, HEPATIC, SCAN CBC #### [facility] [address] [place] [address] PT Coag (PPP) [Time] Prothrombin time (PT) High 9.0- 12.9 [facility] Comment on above: A hematocrit value g reater than 55% may lead to inaccurate results in coagulation testing. Patients having hematocrit values >55% require a special collection tube for coagulation studies. Please contact the laboratory at [phone] for redraw instructions. RBC Auto (Bld) [#/Vol]Ordere d By: Vinh Scott on 10-30-2023 RBC (Bld) [#/Vol] Erythrocytes [#/volu me] in Blood by Automated count Low 3.60-5.00 [facility] RBC morphologyOrdered By: Marek Scott on 10-30-2023 RBC morphology finding Nom (Bld) N/A [facility] Scan and CBCon 10-30-2023 Crenated RBC Slight Normal [facility] Comment on above: Performed By: #### L PHOEBE ALEXISLD #### [address] Hypochromasia Slight Normal [facility] Comment on above: Performed By: #### L DARYA ALEXIS #### [address] Mean Corpuscular HGB Conc 33.8 g/dL Normal 32.0-35.0 [facility] Comment on above: Performed By: #### L PHOEBE ALEXISLD #### [address] NRBC% 0.2 /100{WBC} Normal 0-0.5 [facility] Comment on above: Performed By: #### L ACTDARYA DAWN #### [address] Ovalocytes Slight Normal [facility] Comment on above: Performed By: #### L ACTPHOEBE DAWNLD #### [address] Platelet Estimate Normal Normal Normal [facility] Comment on above: Performed By: #### L ACTDARYA DAWN #### [address] Platelet Morphology Normal Normal Normal [facility] Comment on above: Result Comment: PERF ORMED BY: [place] [address] PATHOLOGIST [employer] KATARINA WILKERSON M.D. Performed By: #### L DARYA ALEXIS #### [address] Poikilocytosis Slight Normal [facility] Comment on above: Performed By: #### L DARYA ALEXIS #### [address] Polychromasia Slight Normal [facility] Comment on above: Performed By: #### L DARYA ALEXIS #### [address] Serum or plasma anion gap de terminationOrdered By: Vinh Scott on 10-30-2023 Anion gap [Moles/Vol] 14.9 mmol/L Normal 6.0-15.0 [facility] Comment on above: Performed By: #### L DARYA ALEXIS #### [address] Anion gap [Moles/Vol] Serum or plasma an ion gap determination 6.0-15.0 [facility] Sodium [Moles/volume] in Ser um or PlasmaOrdered By: Vinh Scott on 10-30-2023 Sodium [Moles/Vol] 129 mmol/L Low 136-145 [facility] Comment on above: Performed By: #### L DARYA ALEXIS #### [facility] [address] Sodium [Moles/Vol] Sodium [Moles/volume ] in Serum or Plasma Low 136-145 [facility] Urea nitrogen [Mass/volume] in Serum or PlasmaOrdered By: Obfedericodaivonne Cuevasr on 10-30-2023 Urea nitrogen [Mass/Vol] 48 mg/dL High [address] [place] [address] Comment on above: Performed By: #### L DARYA ALEXIS #### [facility] [address] Urea nitrogen [Mass/Vol] Urea nitrogen [Mass/volume] in Serum or Plasma [address] [facility] WBC Auto (Bld) [#/Vol]Ordere d By: Vinh Cuevasr on 10-30-2023 WBC (Bld) [#/Vol] Leukocytes [#/volume ] in Blood by Automated count 3.8-11.6 [facility] Alanine aminotransferase [En zymatic activity/volume] in Serum or PlasmaOrdered By: Ummdaivonne Cuevasr on 10-29-2023 ALT [Catalytic activity/Vol] 27 U/L Normal [facility] Comment on above: Performed By: #### L DARYA ALEXIS #### [facility] [address] ALT [Catalytic activity/Vol] Alanine aminotransferase [Enzymatic activity/volume] in Serum or Plasma [facility] Albumin [Mass/volume] in Ser um or Plasma by Bromocresol green (BCG) dye binding methoOrdered By: Obfedericodaivonne Pastoromar on 10-29-2023 Albumin BCG dye [Mass/Vol] 2.1 g/dL Low 3.5-5.7 [facility] Albumin BCG dye [Mass/Vol] Albumin [Mass/volume] in Serum or Plasma by Bromocresol green (BCG) dye binding metho Low 3.5-5.7 [facility] Alkaline phosphatase [Enzyma tic activity/volume] in Serum or PlasmaOrdered By: Vinh Scott on 10-29-2023 ALP [Catalytic activity/Vol] 107 U/L High 34-104 [facility] Comment on above: Performed By: #### L DARYA ALEXIS #### [facility] [address] [place] [id number] [facility] ALP [Catalytic activity/Vol] Alkaline phosphatase [Enzymatic activity/volume] in Serum or Plasma High 34-104 [facility] Aspartate aminotransferase [ Enzymatic activity/volume] in Serum or PlasmaOrdered By: Vinh Cuevasr on 10-29-2023 AST [Catalytic activity/Vol] 39 U/L Normal [facility] Comment on above: Performed By: #### L DARYA ALEXIS #### [address] AST [Catalytic activity/Vol] Aspartate aminotransferase [Enzymatic activity/volume] in Serum or Plasma [facility] Bilirubin.total [Mass/volume ] in Serum or PlasmaOrdered By: Vinh Scott on 10-29-2023 Bilirubin [Mass/Vol] 0.5 mg/dL Normal 0.3-1.0 [facility] Comment on above: Performed By: #### L DARYA ALEXIS #### [address] Bilirubin [Mass/Vol] Bilirubin.total [Mass/volume] in Serum or Plasma 0.3-1.0 [facility] Comprehensive Metabolic Pane priya 10-29-2023 Albumin [Mass/Vol] 2.1 g/dL Low 3.5-5.7 [facility] Comment on above: Performed By: #### L DARYA ALEXIS #### [facility] [address] [place] [address] [place] Anion gap [Moles/Vol] 13.2 mmol/L Normal 6.0-15.0 [facility] Comment on above: Performed By: #### L DARYA ALEXIS #### [facility] [address] [place] [id number] [place] Calcium [Mass/Vol] 8.6 mg/dL Normal 8.6-10.3 [facility] Comment on above: Performed By: #### L DARYA ALEXIS #### [facility] [address] [place] [address] [place] Chloride [Moles/Vol] 94 mmol/L Low 98-107 [facility] Comment on above: Performed By: #### L ACTPHOEBE DAWNLD #### [facility] [address] CO2 [Moles/Vol] 29.8 mmol/L Normal 21.0-31.0 [facility] Comment on above: Performed By: #### L DARYA ALEXIS #### [address] Creatinine [Mass/Vol] 4.07 mg/dL Significan t change up 0.60-1.20 [facility] Comment on above: Performed By: #### L DARYA ALEXIS #### [place] [address] [place] Creatinine Clr Calc Pharmacy 13.83 Normal [facility] Comment on above: Performed By: #### L DARYA ALEXIS #### [place] [address] [place] GFR/1.73 sq M.predicted MDRD (S/P/Bld) [Vol rate/Area] 11.177 mL/min/{1.73_m2} Normal [facility] Comment on above: Performed By: #### L DARYA ALEXIS #### [address] Glucose [Mass/Vol] 85 mg/dL Normal 70-100 [facility] Comment on above: Result Comment: [place] om Glucose Reference Range is dependent on time and content of last meal. Glucose of more than 200 mg/dL in a nonstressed, ambulatory subject supports the diagnosis of Diabetes Mellitus. ADA recommended reference range Performed By: #### L ACTPHOEBE DAWNLD #### [address] Potassium [Moles/Vol] 4.0 mmol/L Normal 3.5-5.1 [facility] Comment on above: Performed By: #### L DARYA ALEXIS #### [facility] [address] Sodium [Moles/Vol] 133 mmol/L Low 136-145 [facility] Comment on above: Performed By: #### L DARYA ALEXIS #### [facility] [address] Urea nitrogen [Mass/Vol] 35 mg/dL Significant change up 09-18 [facility] Comment on above: Performed By: #### L DARYA ALEXIS #### [facility] [address] Globulin Calc (S) [Mass/Vol] Ordered By: Vinh Scott on 10-29-2023 Globulin (S) [Mass/Vol] Serum globulin measurement by calculation (mass/volume) [facility] Phosphate [Mass/volume] in S haily or PlasmaOrdered By: Danika Lin on 10-29-2023 Phosphate [Mass/Vol] 4.0 mg/dL Normal 2.5-4.5 [facility] Comment on above: Result Comment: PERF ORMED BY: [place] [address] PATHOLOGIST [employer] KATARINA WILKERSON M.D. Performed By: #### L DARYA ALEXIS #### [address] Phosphate [Mass/Vol] Phosphate [Mass/vol ume] in Serum or Plasma 2.5-4.5 [facility] Protein [Mass/volume] in Ser um or PlasmaOrdered By: Ummdaivonne Pastoromar on 10-29-2023 Protein [Mass/Vol] 4.6 g/dL Low 6.4-8.9 [facility] Comment on above: Performed By: #### L DARYA ALEXIS #### [address] Protein [Mass/Vol] Protein [Mass/volume ] in Serum or Plasma Low 6.4-8.9 [facility] Prothrombin Time INRon 10-28 INR Coag (PPP) [Relative time] 2.2 {INR} Normal [facility] Comment on above: Result Comment: INR Therapeutic Range A) Pre- and Peroperative OAT started two weeks before surgery. NOT HIP SURGERY: 1.5 - 2.5 HIP SURGERY: 2 - 3 B) Primary and secondary prevention of venous THROMBOSIS: 2 - 3 C) Active venous thrombosis, pulmonary embolism and prevention of recurrent venous thrombosis: 2 - 3 D) Prevention of arterial thromboembolism including patients with mechanical heart valves: 3 - 4.5 PERFORMED BY: [place] [address] PATHOLOGIST [employer] KATARINA WILKERSON M.D. Performed By: #### L DARYA ALEXIS #### [address] PT Coag (PPP) [Time] 24.5 s High 9.0-12.9 [facility] Comment on above: Result Comment: A he matocrit value greater than 55% may lead to inaccurate results in coagulation testing. Patients having hematocrit values >55% require a special collection tube for coagulation studies. Please contact the laboratory at [phone] for redraw instructions. Performed By: #### L DARYA ALEXIS #### [address] Red blood cell stomatocyte d etectionOrdered By: Vinh Scott on 10-29-2023 Stomatocytes LM Ql (Bld) Slight [facility] Scan and CBCon 10-29-2023 Anisocytosis Ql (Bld) Slight Normal [facility] Comment on above: Performed By: #### L IPASE, BMP, HEPATIC, SCAN CBC #### [place] [address] [place] Basophils (Bld) [#/Vol] 0.0 10*3/uL Normal 0.0-0.2 [facility] Comment on above: Performed By: #### L IPASE, BMP, HEPATIC, SCAN CBC #### [place] [address] [place] Basophils/100 WBC (Bld) 0.3 % Normal . [facility] Comment on above: Performed By: #### L IPASE, BMP, HEPATIC, SCAN CBC #### [facility] [address] [place] [address] Eosinophils (Bld) [#/Vol] 0.3 10*3/uL Normal 0.0-0.45 [facility] Comment on above: Performed By: #### L IPASE, BMP, HEPATIC, SCAN CBC #### [address] Eosinophils/100 WBC (Bld) 1.9 % Normal . [facility] Comment on above: Performed By: #### L IPASE, BMP, HEPATIC, SCAN CBC #### [address] Erythrocyte distribution width (RBC) [Ratio] 16.4 % High 11.9-15.3 [facility] Comment on above: Performed By: #### L IPASE, BMP, HEPATIC, SCAN CBC #### [address] Hematocrit (Bld) [Volume fraction] 24.9 % Low 34.0-46.4 [facility] Comment on above: Performed By: #### L IPASE, BMP, HEPATIC, SCAN CBC #### [address] Hemoglobin (Bld) [Mass/Vol] 8.3 g/dL Low 11.8-15.4 [facility] Comment on above: Performed By: #### L IPASE, BMP, HEPATIC, SCAN CBC #### [place] [address] [place] Lymphocytes (Bld) [#/Vol] 0.8 10*3/uL Low 1.00-4.8 [facility] Comment on above: Performed By: #### L IPASE, BMP, HEPATIC, SCAN CBC #### [address] Lymphocytes/100 WBC (Bld) 5.6 % Normal . [facility] Comment on above: Performed By: #### L IPASE, BMP, HEPATIC, SCAN CBC #### [address] MCH (RBC) [Entitic mass] 30.7 pg Normal 24.7-34.3 [facility] Comment on above: Performed By: #### L IPASE, BMP, HEPATIC, SCAN CBC #### [address] MCV (RBC) [Entitic vol] 92.0 fL Normal 80-100 [facility] Comment on above: Performed By: #### L IPASE, BMP, HEPATIC, SCAN CBC #### [address] Mean Corpuscular HGB Conc 33.4 g/dL Normal 32.0-35.0 [facility] Comment on above: Performed By: #### L IPASE, BMP, HEPATIC, SCAN CBC #### [address] Monocytes (Bld) [#/Vol] 0.7 10*3/uL Normal 0.0-0.8 [facility] Comment on above: Performed By: #### L IPASE, BMP, HEPATIC, SCAN CBC #### [address] Monocytes/100 WBC (Bld) 5.2 % Normal . [facility] Comment on above: Performed By: #### L IPASE, BMP, HEPATIC, SCAN CBC #### [address] Neutrophils (Bld) [#/Vol] 12.3 10*3/uL High 1.8-7.7 [facility] Comment on above: Performed By: #### L IPASE, BMP, HEPATIC, SCAN CBC #### [address] Neutrophils/100 WBC (Bld) 87.0 % Normal . [facility] Comment on above: Performed By: #### L IPASE, BMP, HEPATIC, SCAN CBC #### [address] NRBC% 0.1 /100{WBC} Normal 0-0.5 [facility] Comment on above: Performed By: #### L IPASE, BMP, HEPATIC, SCAN CBC #### [address] Ovalocytes Slight Normal [facility] Comment on above: Performed By: #### L IPASE, BMP, HEPATIC, SCAN CBC #### [address] Platelet Estimate Normal Normal Normal [facility] Comment on above: Performed By: #### L IPASE, BMP, HEPATIC, SCAN CBC #### [address] Platelet mean volume (Bld) [Entitic vol] 8.2 fL Normal 6.3-10.7 [facility] Comment on above: Performed By: #### L IPASE, BMP, HEPATIC, SCAN CBC #### [address] Platelet Morphology Normal Normal Normal [facility] Comment on above: Result Comment: PERF ORMED BY: [place] [address] PATHOLOGIST [employer] KATARINA WILKERSON M.D. Performed By: #### L IPASE, BMP, HEPATIC, SCAN CBC #### [address] Platelets (Bld) [#/Vol] 194 10*3/uL Normal 150-450 [facility] Comment on above: Performed By: #### L IPASE, BMP, HEPATIC, SCAN CBC #### [address] Poikilocytosis Slight Normal [facility] Comment on above: Performed By: #### L IPASE, BMP, HEPATIC, SCAN CBC #### [address] RBC (Bld) [#/Vol] 2.70 10*6/uL Low 3.60-5.00 [facility] Comment on above: Performed By: #### L IPASE, BMP, HEPATIC, SCAN CBC #### [facility] [address] [place] [address] Stomatocytes Slight Normal [facility] Comment on above: Performed By: #### L IPASE, BMP, HEPATIC, SCAN CBC #### [address] Target Cells Slight Normal [facility] Comment on above: Performed By: #### L IPASE, BMP, HEPATIC, SCAN CBC #### [address] WBC (Bld) [#/Vol] 14.1 10*3/uL High 3.8-11.6 [facility] Comment on above: Performed By: #### L IPASE, BMP, HEPATIC, SCAN CBC #### [address] Serum globulin measurement b y calculation (mass/volume)Ordered By: Vinh Scott on 10-29-2023 Globulin (S) [Mass/Vol] 2.5 g/dL Normal [facility] Comment on above: Performed By: #### L ACTIC CUBLD #### [address] Serum or plasma albumin/glob ulin mass ratioOrdered By: Vinh Scott on 10-29-2023 Albumin/Globulin [Mass ratio] 0.8 {ratio} Normal [facility] Comment on above: Performed By: #### L ACTIC, CUBLD #### [address] Albumin/Globulin [Mass ratio] Serum or plasma albumin/globulin mass ratio [facility] Stomatocytes [Presence] in B lood by Light microscopyOrdered By: Vinh Scott on 10-29-2023 Stomatocytes LM Ql (Bld) Red blood cell stomatocyte detection [facility] Target cellsOrdered By: Umm Scott on 10-29-2023 Target cells LM Ql (Bld) Slight [facility] Target cells [Presence] in B lood by Light microscopyOrdered By: Vinh Scott on 10-29-2023 Target cells LM Ql (Bld) Target cells [facility] Complete Blood Count Auto Di ffon 10-28-2023 Basophils (Bld) [#/Vol] 0.0 10*3/uL Normal 0.0-0.2 [facility] Comment on above: Result Comment: PERF ORMED BY: [place] [address] PATHOLOGIST [employer]CH[employer] MECHANIC KATARINA WILKERSON M.D. Performed By: #### L IPASE, BMP, HEPATIC, SCAN CBC #### [address] Basophils/100 WBC (Bld) 0.2 % Normal . [facility] Comment on above: Performed By: #### L IPASE, BMP, HEPATIC, SCAN CBC #### [address] Eosinophils (Bld) [#/Vol] 0.1 10*3/uL Normal 0.0-0.45 [facility] Comment on above: Performed By: #### L IPASE, BMP, HEPATIC, SCAN CBC #### [address] Eosinophils/100 WBC (Bld) 0.8 % Normal . [facility] Comment on above: Performed By: #### L IPASE, BMP, HEPATIC, SCAN CBC #### [address] Erythrocyte distribution width (RBC) [Ratio] 16.6 % High 11.9-15.3 [facility] Comment on above: Performed By: #### L IPASE, BMP, HEPATIC, SCAN CBC #### [facility] [address] [place] [address] Hematocrit (Bld) [Volume fraction] 26.2 % Low 34.0-46.4 [facility] Comment on above: Performed By: #### L IPASE, BMP, HEPATIC, SCAN CBC #### [address] Hemoglobin (Bld) [Mass/Vol] 8.9 g/dL Low 11.8-15.4 [facility] Comment on above: Performed By: #### L IPASE, BMP, HEPATIC, SCAN CBC #### [address] Lymphocytes (Bld) [#/Vol] 0.5 10*3/uL Low 1.00-4.8 [facility] Comment on above: Performed By: #### L IPASE, BMP, HEPATIC, SCAN CBC #### [address] Lymphocytes/100 WBC (Bld) 3.1 % Normal . [facility] Comment on above: Performed By: #### L IPASE, BMP, HEPATIC, SCAN CBC #### [address] MCH (RBC) [Entitic mass] 31.0 pg Normal 24.7-34.3 [facility] Comment on above: Performed By: #### L IPASE, BMP, HEPATIC, SCAN CBC #### [address] MCV (RBC) [Entitic vol] 91.2 fL Normal 80-100 [facility] Comment on above: Performed By: #### L IPASE, BMP, HEPATIC, SCAN CBC #### [address] Mean Corpuscular HGB Conc 34.0 g/dL Normal 32.0-35.0 [facility] Comment on above: Performed By: #### L IPASE, BMP, HEPATIC, SCAN CBC #### [address] Monocytes (Bld) [#/Vol] 0.5 10*3/uL Normal 0.0-0.8 [facility] Comment on above: Performed By: #### L IPASE, BMP, HEPATIC, SCAN CBC #### [address] Monocytes/100 WBC (Bld) 2.7 % Normal . [facility] Comment on above: Performed By: #### L IPASE, BMP, HEPATIC, SCAN CBC #### [address] Neutrophils (Bld) [#/Vol] 15.4 10*3/uL High 1.8-7.7 [facility] Comment on above: Performed By: #### L IPASE, BMP, HEPATIC, SCAN CBC #### [address] Neutrophils/100 WBC (Bld) 93.2 % Normal . [facility] Comment on above: Performed By: #### L IPASE, BMP, HEPATIC, SCAN CBC #### [address] NRBC% 0.1 /100{WBC} Normal 0-0.5 [facility] Comment on above: Performed By: #### L IPASE, BMP, HEPATIC, SCAN CBC #### [address] Platelet mean volume (Bld) [Entitic vol] 8.3 fL Normal 6.3-10.7 [facility] Comment on above: Performed By: #### L IPASE, BMP, HEPATIC, SCAN CBC #### [address] Platelets (Bld) [#/Vol] 181 10*3/uL Normal 150-450 [facility] Comment on above: Performed By: #### L IPASE, BMP, HEPATIC, SCAN CBC #### [address] RBC (Bld) [#/Vol] 2.87 10*6/uL Low 3.60-5.00 [facility] Comment on above: Performed By: #### L IPASE, BMP, HEPATIC, SCAN CBC #### [place] [address] [place] WBC (Bld) [#/Vol] 16.6 10*3/uL High 3.8-11.6 [facility] Comment on above: Performed By: #### L IPASE, BMP, HEPATIC, SCAN CBC #### [address] [place] [address] [place] Comprehensive Metabolic Pane priya 10-28-2023 Albumin [Mass/Vol] 2.1 g/dL Low 3.5-5.7 [facility] Comment on above: Performed By: #### L IPASE, BMP, HEPATIC, SCAN CBC #### [address] Albumin/Globulin [Mass ratio] 0.9 {ratio} Normal [facility] Comment on above: Performed By: #### L IPASE, BMP, HEPATIC, SCAN CBC #### [address] ALP [Catalytic activity/Vol] 91 U/L Normal 34-104 [facility] Comment on above: Performed By: #### L IPASE, BMP, HEPATIC, SCAN CBC #### [address] ALT [Catalytic activity/Vol] 28 U/L Normal 7-52 [facility] Comment on above: Performed By: #### L IPASE, BMP, HEPATIC, SCAN CBC #### [address] Anion gap [Moles/Vol] 16.9 mmol/L High 6.0-15.0 [facility] Comment on above: Performed By: #### L IPASE, BMP, HEPATIC, SCAN CBC #### [place] [address] [place] AST [Catalytic activity/Vol] 42 U/L High 13-39 [facility] Comment on above: Performed By: #### L IPASE, BMP, HEPATIC, SCAN CBC #### [place] [address] [place] Bilirubin [Mass/Vol] 0.5 mg/dL Normal 0.3-1.0 [facility] Comment on above: Performed By: #### L IPASE, BMP, HEPATIC, SCAN CBC #### [facility] [address] [place] [address] Calcium [Mass/Vol] 8.3 mg/dL Low 8.6-10.3 [facility] Comment on above: Performed By: #### L IPASE, BMP, HEPATIC, SCAN CBC #### [place] [address] [place] Chloride [Moles/Vol] 90 mmol/L Low 98-107 [facility] Comment on above: Performed By: #### L IPASE, BMP, HEPATIC, SCAN CBC #### [address] CO2 [Moles/Vol] 25.7 mmol/L Normal 21.0-31.0 [facility] Comment on above: Performed By: #### L IPASE, BMP, HEPATIC, SCAN CBC #### [address] Creatinine [Mass/Vol] 7.22 mg/dL Significan t change up 0.60-1.20 [facility] Comment on above: Performed By: #### L IPASE, BMP, HEPATIC, SCAN CBC #### [address] Creatinine Clr Calc Pharmacy 7.76 Normal [facility] Comment on above: Result Comment: PERF ORMED BY: [place] [address] PATHOLOGIST [employer]CH[employer] MECH[employer]IC KATARINA WILKERSON M.D. Performed By: #### L IPASE, BMP, HEPATIC, SCAN CBC #### [address] GFR/1.73 sq M.predicted MDRD (S/P/Bld) [Vol rate/Area] 5.618 mL/min/{1.73_m2} Normal [facility] Comment on above: Performed By: #### L IPASE, BMP, HEPATIC, SCAN CBC #### [place] [address] [place] Globulin (S) [Mass/Vol] 2.4 g/dL Normal [facility] Comment on above: Performed By: #### L IPASE, BMP, HEPATIC, SCAN CBC #### [place] [address] [place] Glucose [Mass/Vol] 126 mg/dL High 70-100 [facility] Comment on above: Result Comment: [place] Glucose Reference Range is dependent on time and content of last meal. Glucose of more than 200 mg/dL in a nonstressed, ambulatory subject supports the diagnosis of Diabetes Mellitus. ADA recommended reference range Performed By: #### L IPASE, BMP, HEPATIC, SCAN CBC #### [address] Potassium [Moles/Vol] 4.6 mmol/L Normal 3.5-5.1 [facility] Comment on above: Performed By: #### L IPASE, BMP, HEPATIC, SCAN CBC #### [address] Protein [Mass/Vol] 4.5 g/dL Low 6.4-8.9 [facility] Comment on above: Performed By: #### L IPASE, BMP, HEPATIC, SCAN CBC #### [address] Sodium [Moles/Vol] 128 mmol/L Low 136-145 [facility] Comment on above: Performed By: #### L IPASE, BMP, HEPATIC, SCAN CBC #### [address] Urea nitrogen [Mass/Vol] 69 mg/dL High 7-25 [facility] Comment on above: Performed By: #### L IPASE, BMP, HEPATIC, SCAN CBC #### [address] Prothrombin Time INRon 10-27 INR Coag (PPP) [Relative time] 1.8 {INR} Normal [facility] Comment on above: Result Comment: INR Therapeutic Range A) Pre- and Peroperative OAT started two weeks before surgery. NOT HIP SURGERY: 1.5 - 2.5 HIP SURGERY: 2 - 3 B) Primary and secondary prevention of venous THROMBOSIS: 2 - 3 C) Active venous thrombosis, pulmonary embolism and prevention of recurrent venous thrombosis: 2 - 3 D) Prevention of arterial thromboembolism including patients with mechanical heart valves: 3 - 4.5 PERFORMED BY: [place] [address] PATHOLOGIST [employer]CH[employer] MECHANIC KATARINA WILKERSON M.D. Performed By: #### L ACTDARYA DAWN #### [address] PT Coag (PPP) [Time] 20.0 s High 9.0-12.9 [facility] Comment on above: Result Comment: A he matocrit value greater than 55% may lead to inaccurate results in coagulation testing. Patients having hematocrit values >55% require a special collection tube for coagulation studies. Please contact the laboratory at [phone] for redraw instructions. Performed By: #### L ACTDARYA DAWN #### [address] Complete Blood Count Auto Di ffon 10-27-2023 Basophils (Bld) [#/Vol] 0.0 10*3/uL Normal 0.0-0.2 [facility] Comment on above: Result Comment: PERF ORMED BY: [place] [address] PATHOLOGIST EXCH[employer] MECHANIC KATARINA WILKERSON M.D. Performed By: #### L ACTDARYA DAWN #### [address] Basophils/100 WBC (Bld) 0.2 % Normal . [facility] Comment on above: Performed By: #### L ACTPHOEBE DAWNLD #### [address] Eosinophils (Bld) [#/Vol] 0.2 10*3/uL Normal 0.0-0.45 [facility] Comment on above: Performed By: #### L ACTPHOEBE DAWNLD #### [address] Eosinophils/100 WBC (Bld) 0.8 % Normal . [facility] Comment on above: Performed By: #### L ACTPHOEBE DAWNLD #### [address] Erythrocyte distribution width (RBC) [Ratio] 16.2 % High 11.9-15.3 [facility] Comment on above: Performed By: #### L ACTIC CUBLD #### [address] Hematocrit (Bld) [Volume fraction] 25.3 % Low 34.0-46.4 [facility] Comment on above: Performed By: #### L ACTIC CUBLD #### [address] Hemoglobin (Bld) [Mass/Vol] 8.4 g/dL Low 11.8-15.4 [facility] Comment on above: Performed By: #### L ACTIC CUBLD #### [address] Lymphocytes (Bld) [#/Vol] 0.3 10*3/uL Low 1.00-4.8 [facility] Comment on above: Performed By: #### L ACTPHOEBE DAWNLD #### [address] Lymphocytes/100 WBC (Bld) 1.6 % Normal . [facility] Comment on above: Performed By: #### L ACTPHOEBE DAWNLD #### [address] MCH (RBC) [Entitic mass] 30.7 pg Normal 24.7-34.3 [facility] Comment on above: Performed By: #### L ACTPHOEBE DAWNLD #### [address] MCV (RBC) [Entitic vol] 92.1 fL Normal 80-100 [facility] Comment on above: Performed By: #### L ACTIC CUBLD #### [address] Mean Corpuscular HGB Conc 33.3 g/dL Normal 32.0-35.0 [facility] Comment on above: Performed By: #### L ACTIC CUBLD #### [address] Monocytes (Bld) [#/Vol] 0.2 10*3/uL Normal 0.0-0.8 [facility] Comment on above: Performed By: #### L ACTDARYA DAWN #### [place] [address] [place] Monocytes/100 WBC (Bld) 1.0 % Normal . [facility] Comment on above: Performed By: #### L ACTDARYA DAWN #### [address] Neutrophils (Bld) [#/Vol] 19.8 10*3/uL High 1.8-7.7 [facility] Comment on above: Performed By: #### L DARYA ALEXIS #### [address] Neutrophils/100 WBC (Bld) 96.4 % Normal . [facility] Comment on above: Performed By: #### L DARYA ALEXIS #### [address] NRBC% 0.1 /100{WBC} Normal 0-0.5 [facility] Comment on above: Performed By: #### L DARYA ALEXIS #### [address] Platelet mean volume (Bld) [Entitic vol] 8.1 fL Normal 6.3-10.7 [facility] Comment on above: Performed By: #### L ACTDARYA DAWN #### [place] [address] [place] Platelets (Bld) [#/Vol] 181 10*3/uL Normal 150-450 [facility] Comment on above: Performed By: #### L ACTDARYA DAWN #### [place] [address] [place] RBC (Bld) [#/Vol] 2.75 10*6/uL Low 3.60-5.00 [facility] Comment on above: Performed By: #### L ACTDARYA DAWN #### [place] [address] [place] WBC (Bld) [#/Vol] 20.5 10*3/uL High 3.8-11.6 [facility] Comment on above: Performed By: #### L DARYA ALEXIS #### [address] Comprehensive Metabolic Pane priya 10-27-2023 Albumin [Mass/Vol] 2.2 g/dL Low 3.5-5.7 [facility] Comment on above: Performed By: #### L DARYA ALEXIS #### [address] Albumin/Globulin [Mass ratio] 0.8 {ratio} Normal [facility] Comment on above: Performed By: #### L DARYA ALEXIS #### [address] ALP [Catalytic activity/Vol] 70 U/L Normal 34-104 [facility] Comment on above: Performed By: #### L DARYA ALEXIS #### [address] ALT [Catalytic activity/Vol] 27 U/L Normal 7-52 [facility] Comment on above: Performed By: #### L DARYA ALEXIS #### [address] Anion gap [Moles/Vol] 13.5 mmol/L Normal 6.0-15.0 [facility] Comment on above: Performed By: #### L DARYA ALEXIS #### [address] AST [Catalytic activity/Vol] 43 U/L High 13-39 [facility] Comment on above: Performed By: #### L DARYA ALEXIS #### [address] Bilirubin [Mass/Vol] 0.6 mg/dL Normal 0.3-1.0 [facility] Comment on above: Performed By: #### L DARYA ALEXIS #### [address] Calcium [Mass/Vol] 8.5 mg/dL Low 8.6-10.3 [facility] Comment on above: Performed By: #### L DARYA ALEXIS #### [address] Chloride [Moles/Vol] 91 mmol/L Low 98-107 [facility] Comment on above: Performed By: #### L DARYA ALEXIS #### [address] CO2 [Moles/Vol] 28.5 mmol/L Normal 21.0-31.0 [facility] Comment on above: Performed By: #### L DARYA ALEXIS #### [address] Creatinine [Mass/Vol] 5.98 mg/dL Significan t change up 0.60-1.20 [facility] Comment on above: Performed By: #### L DARYA ALEXIS #### [address] Creatinine Clr Calc Pharmacy 9.43 Normal [facility] Comment on above: Result Comment: PERF ORMED BY: [place] [address] PATHOLOGIST [employer] MECH[employer] KATARINA WILKERSON M.D. Performed By: #### L DARYA ALEXIS #### [address] GFR/1.73 sq M.predicted MDRD (S/P/Bld) [Vol rate/Area] 7.043 mL/min/{1.73_m2} Normal [facility] Comment on above: Performed By: #### L DARYA ALEXIS #### [address] Globulin (S) [Mass/Vol] 2.6 g/dL Normal [facility] Comment on above: Performed By: #### L DARYA ALEXIS #### [address] Glucose [Mass/Vol] 115 mg/dL High 70-100 [facility] Comment on above: Result Comment: [place] Glucose Reference Range is dependent on time and content of last meal. Glucose of more than 200 mg/dL in a nonstressed, ambulatory subject supports the diagnosis of Diabetes Mellitus. ADA recommended reference range Performed By: #### L ACTICDARYA #### [address] Potassium [Moles/Vol] 4.0 mmol/L Normal 3.5-5.1 [facility] Comment on above: Performed By: #### L ACTDARYA DAWN #### [address] Protein [Mass/Vol] 4.8 g/dL Low 6.4-8.9 [facility] Comment on above: Performed By: #### L ACTDARYA DAWN #### [address] Sodium [Moles/Vol] 129 mmol/L Low 136-145 [facility] Comment on above: Performed By: #### L ACTPHOEBE DAWNLD #### [address] Urea nitrogen [Mass/Vol] 53 mg/dL High 7-25 [facility] Comment on above: Performed By: #### L ACTNEREYDA CUBLD #### [address] Prothrombin Time INRon 10-26 INR Coag (PPP) [Relative time] 1.4 {INR} Normal [facility] Comment on above: Result Comment: INR Therapeutic Range A) Pre- and Peroperative OAT started two weeks before surgery. NOT HIP SURGERY: 1.5 - 2.5 HIP SURGERY: 2 - 3 B) Primary and secondary prevention of venous THROMBOSIS: 2 - 3 C) Active venous thrombosis, pulmonary embolism and prevention of recurrent venous thrombosis: 2 - 3 D) Prevention of arterial thromboembolism including patients with mechanical heart valves: 3 - 4.5 PERFORMED BY: [place] [address] PATHOLOGIST EXCH[employer] MECHANIC KATARINA WILKERSON M.D. Performed By: #### L PHOEBE ALEXISLD #### [address] PT Coag (PPP) [Time] 15.6 s High 9.0-12.9 [facility] Comment on above: Result Comment: A he matocrit value greater than 55% may lead to inaccurate results in coagulation testing. Patients having hematocrit values >55% require a special collection tube for coagulation studies. Please contact the laboratory at [phone] for redraw instructions. Performed By: #### L PHOEBE ALEXISLD #### [address] Basic Metabolic Panelon 08-3 Anion gap [Moles/Vol] 15.0 mmol/L Normal 6.0-15.0 [facility] Comment on above: Performed By: #### L IPASE, BMP, HEPATIC, SCAN CBC #### [address] Calcium [Mass/Vol] 9.2 mg/dL Normal 8.6-10.3 [facility] Comment on above: Performed By: #### L IPASE, BMP, HEPATIC, SCAN CBC #### [address] Chloride [Moles/Vol] 91 mmol/L Low 98-107 [facility] Comment on above: Performed By: #### L IPASE, BMP, HEPATIC, SCAN CBC #### [address] CO2 [Moles/Vol] 29.8 mmol/L Normal 21.0-31.0 [facility] Comment on above: Performed By: #### L IPASE, BMP, HEPATIC, SCAN CBC #### [place] [address] [place] Creatinine [Mass/Vol] 5.07 mg/dL Significan t change up 0.60-1.20 [facility] Comment on above: Performed By: #### L IPASE, BMP, HEPATIC, SCAN CBC #### [place] [address] [place] Creatinine Clr Calc Pharmacy 11.09 Normal [facility] Comment on above: Result Comment: PERF ORMED BY: [place] [address] PATHOLOGIST [employer] MECHANIC KATARINA WILKERSON M.D. Performed By: #### L IPASE, BMP, HEPATIC, SCAN CBC #### [place] [address] [place] GFR/1.73 sq M.predicted MDRD (S/P/Bld) [Vol rate/Area] 8.586 mL/min/{1.73_m2} Normal [facility] Comment on above: Performed By: #### L IPASE, BMP, HEPATIC, SCAN CBC #### [address] Glucose [Mass/Vol] 99 mg/dL Normal 70-100 [facility] Comment on above: Result Comment: [facility] Glucose Reference Range is dependent on time and content of last meal. Glucose of more than 200 mg/dL in a nonstressed, ambulatory subject supports the diagnosis of Diabetes Mellitus. ADA recommended reference range Performed By: #### L IPASE, BMP, HEPATIC, SCAN CBC #### [address] Potassium [Moles/Vol] 3.8 mmol/L Normal 3.5-5.1 [facility] Comment on above: Performed By: #### L IPASE, BMP, HEPATIC, SCAN CBC #### [place] [address] [place] Sodium [Moles/Vol] 132 mmol/L Significant change down 136-145 [facility] Comment on above: Performed By: #### L IPASE, BMP, HEPATIC, SCAN CBC #### [place] [address] [place] Urea nitrogen [Mass/Vol] 35 mg/dL Significant change up 7-25 [facility] Comment on above: Performed By: #### L IPASE, BMP, HEPATIC, SCAN CBC #### [place] [address] [place] Campy coli+jejuni BD MaxOrde red By: Imad Asaad on 10-26-2023 C. coli+jejuni tuf gene MARCO+probe Ql (Stl) Negative Negative [facility] Comment on above: Campylobacter test i ncludes C. jejuni and C. coli. C. coli+jejuni tuf gene MARCO+probe Ql (Stl) Campy coli+jejuni BD Max Negative [facility] Comment on above: Campylobacter test i ncludes C. jejuni and C. coli. Clostridioides difficile tox in B tcdB gene [Presence] in Stool by MARCO with probe deteOrdered By: Lindsey Hickey on 10-26-2023 C. difficile toxin B tcdB gene MARCO+probe Ql (Stl) Positive Abnormal Negative [facility] Comment on above: Testing performed by RT-PCR C. difficile toxin B tcdB gene MARCO+probe Ql (Stl) Clostridioides difficile toxin B tcdB gene [Presence] in Stool by MARCO with probe dete Negative [facility] Comment on above: Testing performed by RT-PCR Clostridium Difficileon 09-27 Clostridium Difficile Positive Normal Negative [facility] Comment on above: Order Comment: > or = to 3 loose/watery stools in the last 24 HRS? Y Is patient on promotility agents or tube feeding? N Results called at 1332 on 10/26/23 Result Comment: Test ing performed by RT-PCR PERFORMED BY: [place] [address] PATHOLOGIST EXCHANGE MECHANIC KATARINA WILKERSON M.D. Performed By: #### L DARYA ALEXIS #### [address] Cryptosporidium parv+homin B D MaxOrdered By: Lindsey Hickey on 10-26-2023 C. parvum+hominis DNA MARCO+probe Ql (Stl) Negative Negative [facility] Comment on above: Cryptosporidium test includes C. hominis and C. parvum. C. parvum+hominis DNA MARCO+probe Ql (Stl) Cryptosporidium parv+homin BD Max Negative [facility] Comment on above: Cryptosporidium test includes C. hominis and C. parvum. Entamoeba histolytica BD Max Ordered By: Lindsey Hickey on 10-26-2023 E. histolytica DNA MARCO+probe Ql (Stl) Negative Negative [facility] Comment on above: Testing performed by RT-PCR E. histolytica DNA MARCO+probe Ql (Stl) Entamoeba histolytica BD Max Negative [facility] Comment on above: Testing performed by RT-PCR Escherichia coli Stx1 and St x2 toxin stx1+stx2 genes [Presence] in Stool by MARCO withOrdered By: Imgogo Pimentelad on 10-26-2023 E. coli stx1+stx2 genes MARCO+probe Ql (Stl) Negative Negative [facility] Giardia bruno BD MaxOrdered By : Lindsey Hickey on 10-26-2023 G. lamblia DNA MARCO+probe Ql (Stl) Negative Negative [facility] G. lamblia DNA MARCO+probe Ql (Stl) Giardia bruno BD Max Negative [facility] Ova and Parasite Panelon Cryptosporidium (C.hominis+par Negative Normal Negative [facility] Comment on above: Result Comment: Cryp tosporidium test includes C. hominis and C. parvum. Performed By: #### L DARYA ALEXIS #### [address] Entamoeba histolytica Negative Normal Negative [facility] Comment on above: Result Comment: Test ing performed by RT-PCR PERFORMED BY: [place] [address] PATHOLOGIST EXCHANGE MECHANIC KATARINA WILKERSON M.D. Performed By: #### L DARYA ALEXIS #### [address] Giardia lamblia Negative Normal Negative [facility] Comment on above: Performed By: #### L DARYA ALEXIS #### [place] [address] [place] Prothrombin Time INRon 10-25 INR Coag (PPP) [Relative time] 1.3 {INR} Normal [facility] Comment on above: Result Comment: INR Therapeutic Range A) Pre- and Peroperative OAT started two weeks before surgery. NOT HIP SURGERY: 1.5 - 2.5 HIP SURGERY: 2 - 3 B) Primary and secondary prevention of venous THROMBOSIS: 2 - 3 C) Active venous thrombosis, pulmonary embolism and prevention of recurrent venous thrombosis: 2 - 3 D) Prevention of arterial thromboembolism including patients with mechanical heart valves: 3 - 4.5 PERFORMED BY: [place] [address] PATHOLOGIST EXCHANGE MECHANIC KATARINA WILKERSON M.D. Performed By: #### L IPASE, BMP, HEPATIC, SCAN CBC #### [facility] [address] [place] [address] PT Coag (PPP) [Time] 15.0 s High 9.0-12.9 [facility] Comment on above: Result Comment: A he matocrit value greater than 55% may lead to inaccurate results in coagulation testing. Patients having hematocrit values >55% require a special collection tube for coagulation studies. Please contact the laboratory at [phone] for redraw instructions. Performed By: #### L IPASE, BMP, HEPATIC, SCAN CBC #### [place] [id number] [facility] Salmonella sp spaO gene [Pre sence] in Stool by MARCO with probe detectionOrdered By: Imad Asaad on 10-26-2023 Salmonella sp spaO gene MARCO+probe Ql (Stl) Negative Negative [facility] Comment on above: Testing performed by RT-PCR Salmonellosis BD MaxOrdered By: Imad Asaad on 10-26-2023 Salmonella sp spaO gene MARCO+probe Ql (Stl) Salmonella sp spaO gene [Presence] in Stool by MARCO with probe detection Negative [facility] Comment on above: Testing performed by RT-PCR Scan and CBCon 10-26-2023 Anisocytosis Ql (Bld) Slight Normal [facility] Comment on above: Performed By: #### L IPASE, BMP, HEPATIC, SCAN CBC #### [facility] [address] [place], [place] [id number] [place] Basophils (Bld) [#/Vol] 0.0 10*3/uL Normal 0.0-0.2 [facility] Comment on above: Performed By: #### L IPASE, BMP, HEPATIC, SCAN CBC #### [address] Basophils/100 WBC (Bld) 0.1 % Normal . [facility] Comment on above: Performed By: #### L IPASE, BMP, HEPATIC, SCAN CBC #### [address] Eosinophils (Bld) [#/Vol] 0.1 10*3/uL Normal 0.0-0.45 [facility] Comment on above: Performed By: #### L IPASE, BMP, HEPATIC, SCAN CBC #### [facility] [address] [place] [address] Eosinophils/100 WBC (Bld) 0.7 % Normal . [facility] Comment on above: Performed By: #### L IPASE, BMP, HEPATIC, SCAN CBC #### [address] Erythrocyte distribution width (RBC) [Ratio] 16.3 % High 11.9-15.3 [facility] Comment on above: Performed By: #### L IPASE, BMP, HEPATIC, SCAN CBC #### [address] Hematocrit (Bld) [Volume fraction] 26.7 % Low 34.0-46.4 [facility] Comment on above: Performed By: #### L IPASE, BMP, HEPATIC, SCAN CBC #### [place] [address] [place] Hemoglobin (Bld) [Mass/Vol] 8.8 g/dL Low 11.8-15.4 [facility] Comment on above: Performed By: #### L IPASE, BMP, HEPATIC, SCAN CBC #### [place] [address] [place] Lymphocytes (Bld) [#/Vol] 0.4 10*3/uL Low 1.00-4.8 [facility] Comment on above: Performed By: #### L IPASE, BMP, HEPATIC, SCAN CBC #### [place] [address] [place] Lymphocytes/100 WBC (Bld) 2.2 % Normal . [facility] Comment on above: Performed By: #### L IPASE, BMP, HEPATIC, SCAN CBC #### [address] MCH (RBC) [Entitic mass] 30.4 pg Normal 24.7-34.3 [facility] Comment on above: Performed By: #### L IPASE, BMP, HEPATIC, SCAN CBC #### [address] MCV (RBC) [Entitic vol] 92.7 fL Normal 80-100 [facility] Comment on above: Performed By: #### L IPASE, BMP, HEPATIC, SCAN CBC #### [address] Mean Corpuscular HGB Conc 32.8 g/dL Normal 32.0-35.0 [facility] Comment on above: Performed By: #### L IPASE, BMP, HEPATIC, SCAN CBC #### [place] [address] [place] Monocytes (Bld) [#/Vol] 0.3 10*3/uL Normal 0.0-0.8 [facility] Comment on above: Performed By: #### L IPASE, BMP, HEPATIC, SCAN CBC #### [address] Monocytes/100 WBC (Bld) 1.6 % Normal . [facility] Comment on above: Performed By: #### L IPASE, BMP, HEPATIC, SCAN CBC #### [place] [address] [place] Neutrophils (Bld) [#/Vol] 16.6 10*3/uL High 1.8-7.7 [facility] Comment on above: Performed By: #### L IPASE, BMP, HEPATIC, SCAN CBC #### [place] [address] [place] Neutrophils/100 WBC (Bld) 95.4 % Normal . [facility] Comment on above: Performed By: #### L IPASE, BMP, HEPATIC, SCAN CBC #### [address] NRBC% 0.0 /100{WBC} Normal 0-0.5 [facility] Comment on above: Performed By: #### L IPASE, BMP, HEPATIC, SCAN CBC #### [address] Platelet Estimate Normal Normal Normal [facility] Comment on above: Performed By: #### L IPASE, BMP, HEPATIC, SCAN CBC #### [address] Platelet mean volume (Bld) [Entitic vol] 7.9 fL Normal 6.3-10.7 [facility] Comment on above: Performed By: #### L IPASE, BMP, HEPATIC, SCAN CBC #### [address] Platelet Morphology Normal Normal Normal [facility] Comment on above: Result Comment: PERF ORMED BY: [place] [address] PATHOLOGIST EXCHANGE MECHANIC KATARINA WILKERSON M.D. Performed By: #### L IPASE, BMP, HEPATIC, SCAN CBC #### [address] Platelets (Bld) [#/Vol] 196 10*3/uL Normal 150-450 [facility] Comment on above: Performed By: #### L IPASE, BMP, HEPATIC, SCAN CBC #### [address] Polychromasia Slight Normal [facility] Comment on above: Performed By: #### L IPASE, BMP, HEPATIC, SCAN CBC #### [address] RBC (Bld) [#/Vol] 2.88 10*6/uL Low 3.60-5.00 [facility] Comment on above: Performed By: #### L IPASE, BMP, HEPATIC, SCAN CBC #### [place] [address] [place] WBC (Bld) [#/Vol] 17.4 10*3/uL High 3.8-11.6 [facility] Comment on above: Performed By: #### L IPASE, BMP, HEPATIC, SCAN CBC #### [facility] [address] Shigella Tox 1+2 BD MaxOrder ed By: Imad Asaad on 10-26-2023 E. coli stx1+stx2 genes MARCO+probe Ql (Stl) Escherichia coli Stx1 and Stx2 toxin stx1+stx2 genes [Presence] in Stool by MARCO with Negative [facility] Shigella species+EIEC invasi on plasmid antigen H ipaH gene [Presence] in Stool by NAAOrdered By: Imad Asaad on 10-26-2023 Shigella species+EIEC invasion plasmid antigen H ipaH gene MARCO+probe Ql (Stl) Negative Negative [facility] Comment on above: Shigella sp. test in cludes Shigella species and Enteroinvasive E. coli (EIEC). Shigellosis BD MaxOrdered By : Imad Asaad on 10-26-2023 Shigella species+EIEC invasion plasmid antigen H ipaH gene MARCO+probe Ql (Stl) Shigella species+EIEC invasion plasmid antigen H ipaH gene [Presence] in Stool by MARCO Negative [facility] Comment on above: Shigella sp. test in cludes Shigella species and Enteroinvasive E. coli (EIEC). Stool Bacterial Panelon 09-27 Campylobacter Negative Normal Negative [facility] Comment on above: Result Comment: Camp ylobacter test includes C. jejuni and C. coli. Performed By: #### L ACTPHOEBE DAWNLD #### [address] Salmonella Species Negative Normal Negative [facility] Comment on above: Result Comment: Test ing performed by RT-PCR PERFORMED BY: [place] [address] PATHOLOGIST EXCHANGE MECHANIC KATARINA WILKERSON M.D. Performed By: #### L ACTNEREYDA CUBLD #### [address] Shiga Toxin (E coli O157+oth) Negative Normal Negative [facility] Comment on above: Performed By: #### L DARYA ALEXIS #### [facility] [address] Shigella Species Negative Normal Negative [facility] Comment on above: Result Comment: Shig lion sp. test includes Shigella species and Enteroinvasive E. coli (EIEC). Performed By: #### L DARYA ALEXIS #### [facility] [address] Activated partial thrombopla stin time (aPTT) in platelet poor plasma by coagulation aOrdered By: Tania Aguilar on 10-25-2023 aPTT Coag (PPP) [Time] 72.1 s High 25.1-36.5 [facility] Comment on above: A hematocrit value g reater than 55% may lead to inaccurate results in coagulation testing. Patients having hematocrit values >55% require a special collection tube for coagulation studies. Please contact the laboratory at [phone] for redraw instructions. Bacterial blood cultureOrder ed By: Tania Aguilar on 10-25-2023 Bacteria identified Cx Nom (Bld) Bacterial blood culture [facility] Bacteria identified Cx Nom (Bld) Bacterial blood culture [facility] Bacteria identified Cx Nom (Bld) NO GROWTH 5 DAYS [facility] Basic Metabolic Panelon 09-27 Anion gap [Moles/Vol] 19.2 mmol/L High 6.0-15.0 [facility] Comment on above: Order Comment: draw everything at 0900 DIALYSIS WILL DRAW SENT LABELS AND TUBES AD Performed By: #### L DARYA ALEXIS #### [facility] [address] Calcium [Mass/Vol] 8.7 mg/dL Normal 8.6-10.3 [facility] Comment on above: Order Comment: draw everything at 0900 DIALYSIS WILL DRAW SENT LABELS AND TUBES AD Performed By: #### L DARYA ALEXIS #### [facility] [address] [place] [id number] [facility] Chloride [Moles/Vol] 89 mmol/L Low 98-107 [facility] Comment on above: Order Comment: draw everything at 0900 DIALYSIS WILL DRAW SENT LABELS AND TUBES AD Performed By: #### L DARYA ALEXIS #### [address] CO2 [Moles/Vol] 23.0 mmol/L Normal 21.0-31.0 [facility] Comment on above: Order Comment: draw everything at 0900 DIALYSIS WILL DRAW SENT LABELS AND TUBES AD Performed By: #### L DARYA ALEXIS #### [address] Creatinine [Mass/Vol] 8.79 mg/dL High 0.60-1.20 [facility] Comment on above: Order Comment: draw everything at 0900 DIALYSIS WILL DRAW SENT LABELS AND TUBES AD Performed By: #### L DARYA ALEXIS #### [address] Creatinine Clr Calc Pharmacy 6.40 Normal [facility] Comment on above: Order Comment: draw everything at 0900 DIALYSIS WILL DRAW SENT LABELS AND TUBES AD Performed By: #### L DARYA ALEXIS #### [place] [address] [place] GFR/1.73 sq M.predicted MDRD (S/P/Bld) [Vol rate/Area] 4.436 mL/min/{1.73_m2} Normal [facility] Comment on above: Order Comment: draw everything at 0900 DIALYSIS WILL DRAW SENT LABELS AND TUBES AD Performed By: #### L DARYA ALEXIS #### [address] Glucose [Mass/Vol] 102 mg/dL High 70-100 [facility] Comment on above: Order Comment: draw everything at 0900 DIALYSIS WILL DRAW SENT LABELS AND TUBES AD Result Comment: [place] Glucose Reference Range is dependent on time and content of last meal. Glucose of more than 200 mg/dL in a nonstressed, ambulatory subject supports the diagnosis of Diabetes Mellitus. ADA recommended reference range Performed By: #### L DARYA ALEXIS #### [place] [address] [place] Potassium [Moles/Vol] 5.2 mmol/L High 3.5-5.1 [facility] Comment on above: Order Comment: draw everything at 0900 DIALYSIS WILL DRAW SENT LABELS AND TUBES AD Performed By: #### L ACTNEREYDA, CUBLD #### [address] Sodium [Moles/Vol] 126 mmol/L Low 136-145 [facility] Comment on above: Order Comment: draw everything at 0900 DIALYSIS WILL DRAW SENT LABELS AND TUBES AD Performed By: #### L ACTIC, CUBLD #### [address] Urea nitrogen [Mass/Vol] 69 mg/dL High 7-25 [facility] Comment on above: Order Comment: draw everything at 0900 DIALYSIS WILL DRAW SENT LABELS AND TUBES AD Performed By: #### L ACTNEREYDA, CUBLD #### [address] Blood Cultureon 10-25-2023 Bacteria identified Cx Nom (Bld) NO GROWTH 5 DAYS PERFORMED BY: [place] [address] PATHOLOGIST EXCHANGE MECHANIC KATARINA Ni [facility] Comment on above: Performed By: #### L REUBEN, CUBLD #### [address] COVID CepheidOrdered By: Samuel Aguilar on 10-25-2023 SARS-CoV-2 (COVID-19) Ab IA Ql Negative Negative [facility] Comment on above: This is a duplicate Cepheid Xpert Xpress CoV-2/Flu/RSV Plus RNA by RT-PCR result to be used for statistical tracking purpose only. SARS-CoV-2 (COVID-19) RNA MARCO+probe Ql (Unsp spec) [facility] COVID Cepheid NegativeOrdere d By: Tania Augilar on 10-25-2023 SARS-CoV-2 (COVID-19) Ab IA Ql COVID Cepheid Negative [facility] Comment on above: This is a duplicate Cepheid Xpert Xpress CoV-2/Flu/RSV Plus RNA by RT-PCR result to be used for statistical tracking purpose only. COVID-19 / Flu A/B / RSV PCR on 10-25-2023 SARS-CoV-2 (COVID-19) RNA MARCO+probe Ql (Unsp spec) COVID-19 Cepheid Result Negative for SARS-CoV-2 RNA by RT-PCR Flu A Cepheid Result Negative for Flu A RNA by RT-PCR Flu B Cepheid Result Negative for Flu B RNA by RT-PCR RSV Cepheid Result Negative for RSV RNA by RT-PCR COVID19 Blank Space -- Reference: Negative COVID19 Blank Space -- Cepheid Disclaimer The Cepheid Xpert Xpress CoV-2/Flu/RSV Plus has Cepheid Disclaimer not been FDA cleared or approved; this test has Cepheid Disclaimer been authorized by FDA under an EUA for use by Cepheid Disclaimer authorized laboratories; this test has been Cepheid Disclaimer authorized only for the simultaneous qualitative Cepheid Disclaimer detection and differentiation of nucleic acids from Cepheid Disclaimer SARS-CoV-2, influenza A, influenza B, and Cepheid Disclaimer respiratory syncytial virus (RSV), and not for any Cepheid Disclaimer other viruses or pathogens; and this test is only Cepheid Disclaimer authorized for the duration of the declaration that Cepheid Disclaimer circumstances exist justifying the authorization of Cepheid Disclaimer emergency use of in vitro diagnostic tests for Cepheid Disclaimer detection and/or diagnosis of COVID-19 under Cepheid Disclaimer Section 564(b)(1) of the Act, 21 U.S.C. 360bbb- Cepheid Disclaimer 3(b)(1), unless the authorization is terminated or Cepheid Disclaimer revoked sooner. PERFORMED BY: [place] [address] PATHOLOGIST EXCHANGE MECHANIC KATARINA WILKERSON M.D. Normal [facility] Comment on above: Performed By: #### C OVID19 FLU RSV, CEPHEID NEG #### [place] [id number] [facility] CT abdomen pelvis wo conon 0 10-25-2023 CT abdomen pelvis wo con [facility] Main [place] [address] [place] [address] CT Scan Report Signed Patient: Edita Costa MR#: [id number] : 1950 Acct:[id number] Age/Sex: 73 / F ADM Date: 10/24/23 Loc: Room: [address] [place] [address] Type: ADM IN Attending Dr: Coreen Jaffe MD Copies to: MD Coreen Rosado MD Ordering Provider: Tania Aguilar MD Date of Service: 10/24/23 CT/CT abdomen pelvis wo con: RLQ tenderness, rectal bleeding per pt CT ABDOMEN AND PELVIS WITHOUT INTRAVENOUS CONTRAST: CLINICAL HISTORY: Right lower quadrant tenderness, rectal bleeding. COMPARISON: None TECHNIQUE: Spiral images were obtained through the abdomen and pelvis without intravenous contrast. This CT exam was performed using one or more following dose reduction techniques: Automated exposure control, adjustment of the mA and/or kV according to patient size, or use of iterative reconstruction technique. FINDINGS: Lung Bases: [Bilateral lower lobe consolidations with small left and trace right pleural effusions. Cardiomegaly.] Organs:Suboptimal evaluation due to lack of IV contrast. Gallbladder has been removed. Liver spleen pancreas and adrenal glands all appear unremarkable. Alutiiq kidneys appear atrophic without acute process. Abdominal aorta demonstrates severe calcification without aneurysm.[ GI: Stomach is grossly unremarkable. Small bowel appears nondilated. Left colon diverticulosis.[ Pelvis:[Urinary bladder is minimally distended. Uterus has been removed. No adnexal mass.] Peritoneum/Retroperitoneum :No free air, free fluid or lymphadenopathy.[ Abd wall/Bones:Abdominal wall demonstrates no acute findings. Osseous structures demonstrate degenerative change.[ CT/CT abdomen pelvis wo con IMPRESSION: 1. No acute intra-abdominal process is seen. 2. Bilateral lower lobe consolidations with small left and trace right pleural effusions. Pneumonia cannot be excluded. 3. Cardiomegaly. 4. Left colon diverticulosis. Impression dictated by: Moises Camargo Jr., D.O.10/25/2023 8:20 AM Dictation Location: [place] [address] Transcribed By: [facility] 10/25/23819 Dictated By: Moises Camargo Jr, DO 10/25/2316 Signed By: 10/25/23819 Normal [facility] Cepheid COVID PCR Negativeon 10-25-2023 SARS-CoV-2 (COVID-19) RNA MARCO+probe Ql (Unsp spec) Negative Normal Negative [facility] Comment on above: Result Comment: This is a duplicate Cepheid Xpert Xpress CoV-2/Flu/RSV Plus RNA by RT-PCR result to be used for statistical tracking purpose only. PERFORMED BY: [place] [address] PATHOLOGIST EXCHANGE MECHANIC KATARINA WILKERSON M.D. Performed By: #### C OVID19 FLU RSV, CEPHEID NEG #### [place] [id number] [facility] Coagulation Profileon 2023 aPTT Coag (Bld) [Time] 72.1 s High 25.1-36.5 [facility] Comment on above: Order Comment: REDRA W Result Comment: A he matocrit value greater than 55% may lead to inaccurate results in coagulation testing. Patients having hematocrit values >55% require a special collection tube for coagulation studies. Please contact the laboratory at [phone] for redraw instructions. PERFORMED BY: [place] [address] PATHOLOGIST EXCHANGE MECHANIC KATARINA WILKERSON M.D. Performed By: #### L ACTIC, CUBLD #### [facility] [address] [place], [place] [id number] [facility] Complete Blood Count Auto Di ffon 10-25-2023 Basophils (Bld) [#/Vol] 0.0 10*3/uL Normal 0.0-0.2 [facility] Comment on above: Order Comment: draw everything at 0900 DIALYSIS WILL DRAW SENT LABELS AND TUBES AD Result Comment: PERF ORMED BY: [place] [address] PATHOLOGIST EXCHANGE MECHANIC KATARINA WILKERSON M.D. Performed By: #### L ACTPHOEBE DAWNLD #### [place] [address] [place] Basophils/100 WBC (Bld) 0.1 % Normal . [facility] Comment on above: Order Comment: draw everything at 0900 DIALYSIS WILL DRAW SENT LABELS AND TUBES AD Performed By: #### L ACTICPHOEBELD #### [place] [address] [place] Eosinophils (Bld) [#/Vol] 0.0 10*3/uL Normal 0.0-0.45 [facility] Comment on above: Order Comment: draw everything at 0900 DIALYSIS WILL DRAW SENT LABELS AND TUBES AD Performed By: #### L ACTPHOEBE DAWNLD #### [address] Eosinophils/100 WBC (Bld) 0.0 % Normal . [facility] Comment on above: Order Comment: draw everything at 0900 DIALYSIS WILL DRAW SENT LABELS AND TUBES AD Performed By: #### L ACTIC CUBLD #### [address] Erythrocyte distribution width (RBC) [Ratio] 16.1 % High 11.9-15.3 [facility] Comment on above: Order Comment: draw everything at 0900 DIALYSIS WILL DRAW SENT LABELS AND TUBES AD Performed By: #### L ACTIC CUBLD #### [address] Hematocrit (Bld) [Volume fraction] 23.8 % Low 34.0-46.4 [facility] Comment on above: Order Comment: draw everything at 0900 DIALYSIS WILL DRAW SENT LABELS AND TUBES AD Performed By: #### L ACTIC CUBLD #### [address] Hemoglobin (Bld) [Mass/Vol] 7.9 g/dL Low 11.8-15.4 [facility] Comment on above: Order Comment: draw everything at 0900 DIALYSIS WILL DRAW SENT LABELS AND TUBES AD Performed By: #### L DARYA ALEXIS #### [address] Lymphocytes (Bld) [#/Vol] 0.4 10*3/uL Low 1.00-4.8 [facility] Comment on above: Order Comment: draw everything at 0900 DIALYSIS WILL DRAW SENT LABELS AND TUBES AD Performed By: #### L DARYA ALEXIS #### [address] Lymphocytes/100 WBC (Bld) 2.3 % Normal . [facility] Comment on above: Order Comment: draw everything at 0900 DIALYSIS WILL DRAW SENT LABELS AND TUBES AD Performed By: #### L DARYA ALEXIS #### [address] MCH (RBC) [Entitic mass] 30.6 pg Normal 24.7-34.3 [facility] Comment on above: Order Comment: draw everything at 0900 DIALYSIS WILL DRAW SENT LABELS AND TUBES AD Performed By: #### L DARYA ALEXIS #### [address] MCV (RBC) [Entitic vol] 91.6 fL Normal 80-100 [facility] Comment on above: Order Comment: draw everything at 0900 DIALYSIS WILL DRAW SENT LABELS AND TUBES AD Performed By: #### L DARYA ALEXIS #### [address] Mean Corpuscular HGB Conc 33.4 g/dL Normal 32.0-35.0 [facility] Comment on above: Order Comment: draw everything at 0900 DIALYSIS WILL DRAW SENT LABELS AND TUBES AD Performed By: #### L DARYA ALEXIS #### [address] Monocytes (Bld) [#/Vol] 0.3 10*3/uL Normal 0.0-0.8 [facility] Comment on above: Order Comment: draw everything at 0900 DIALYSIS WILL DRAW SENT LABELS AND TUBES AD Performed By: #### L ACTDARYA DAWN #### [address] Monocytes/100 WBC (Bld) 1.6 % Normal . [facility] Comment on above: Order Comment: draw everything at 0900 DIALYSIS WILL DRAW SENT LABELS AND TUBES AD Performed By: #### L ACTDARYA DAWN #### [address] Neutrophils (Bld) [#/Vol] 17.9 10*3/uL High 1.8-7.7 [facility] Comment on above: Order Comment: draw everything at 0900 DIALYSIS WILL DRAW SENT LABELS AND TUBES AD Performed By: #### L ACTDARYA DAWN #### [address] Neutrophils/100 WBC (Bld) 96.0 % Normal . [facility] Comment on above: Order Comment: draw everything at 0900 DIALYSIS WILL DRAW SENT LABELS AND TUBES AD Performed By: #### L ACTDARYA DAWN #### [address] NRBC% 0.0 /100{WBC} Normal 0-0.5 [facility] Comment on above: Order Comment: draw everything at 0900 DIALYSIS WILL DRAW SENT LABELS AND TUBES AD Performed By: #### L ACTDARYA DAWN #### [address] Platelet mean volume (Bld) [Entitic vol] 7.8 fL Normal 6.3-10.7 [facility] Comment on above: Order Comment: draw everything at 0900 DIALYSIS WILL DRAW SENT LABELS AND TUBES AD Performed By: #### L ACTPHOEBE DAWNLD #### [address] Platelets (Bld) [#/Vol] 199 10*3/uL Normal 150-450 [facility] Comment on above: Order Comment: draw everything at 0900 DIALYSIS WILL DRAW SENT LABELS AND TUBES AD Performed By: #### L ACTICPHOEBELD #### [facility] [address] RBC (Bld) [#/Vol] 2.60 10*6/uL Low 3.60-5.00 [facility] Comment on above: Order Comment: draw everything at 0900 DIALYSIS WILL DRAW SENT LABELS AND TUBES AD Performed By: #### L PHOEBE ALEXISLD #### [facility] [address] WBC (Bld) [#/Vol] 18.6 10*3/uL High 3.8-11.6 [facility] Comment on above: Order Comment: draw everything at 0900 DIALYSIS WILL DRAW SENT LABELS AND TUBES AD Performed By: #### L DARYA ALEXIS #### [address] ECG 12 lead ECGon 10-25-2023 ECG 12 lead ECG [facility] [place] [address] [place] [address] Electrocardiograph Report Signed Patient: Edita Costa MR#: [id number] : 1950 Acct:[id number] Age/Sex: 73 / F ADM Date: 10/24/23 Loc: Room: [address] [place] [address] Type: ADM IN Attending Dr: Chan Byers DO Ordering Provider: Tania Aguilar MD Date of Service: 10/25/23 ECG/ECG 12 lead ECG: hyperkalemia Copies to: Test Reason : Blood Pressure : 116/58 mmHG Vent. Rate : 103 BPM Atrial Rate : 141 BPM P-R Int : * ms QRS Dur : 108 ms QT Int : 328 ms P-R-T Axes : * -24 191 degrees QTcB Int : 429 ms Atrial fibrillation with rapid ventricular response Nonspecific intraventricular block Nonspecific ST and T wave abnormality Abnormal ECG When compared with ECG of 24-Oct-2023 19:17, No significant change was found Confirmed by Tania Aguilar MD ([id number]) on 10/25/2023 5:35:56 AM Referred By: Electronically Signed By: Tania Aguilar MD Transcribed By: MUS Signed By Tania Aguilar MD 09/27 0535 Normal [facility] ECH echo transthoracicon ECH echo transthoracic [facility] [place] [address] [place] [address] Echocardiogram Signed Patient: Edita Costa MR#: [id number] : 1950 Acct:[id number] Age/Sex: 73 / F ADM Date: 10/24/23 Loc: Room: [address] [place] [address] Type: ADM IN Attending Dr: Coreen Jaffe MD Ordering Provider: Salinas Ortega MD, [facility] Date of Service: 10/25/23 [facility] echo transthoracic: afib Copies to: MD Salinas Strong MD, [facility] Edita Everett PM Patient Location: : 1950 Gender: Female (MM/DD/YYYY) Age: 73 Years Ordering Physician: Salinas Ortega Height: 65.75 in Weight: 184.315 lb Performed By: Melodie Adams RAN BSA: 1.93 m2 BP: 117 / 50 mmHg HR: 128 bpm Reason For Study: afib History: Afib. Cardioversion. HLD. GERD. PAD. ESRD. HTN. Former Smoker. Family history of CAD. + + Interpretation Summary Ejection Fraction = 50-55%. Moderate concentric left ventricular hypertrophy. The left atrium appears mildly dilated. Inadequate for wall motion assessment. The patient was in atrial fibrillation through out the study. There is no comparison study available. Procedure/Quality: A two-dimensional transthoracic echocardiogram with color flow, Doppler and injection of contrast agent Definity was performed. The study was technically good in quality. Left Ventricle: The left ventricular size is normal. Moderate concentric left ventricular hypertrophy. Ejection Fraction = 50-55%. Reduced accuracy due to rapid AFib. Inadequate for wall motion assessment. Left Atrium: The left atrium appears mildly dilated. Right Atrium: The right atrium is not well visualized. Right Ventricle: The right ventricle is not well visualized. The right ventricle is grossly normal size. Aortic Valve: The aortic valve is trileaflet. The aortic valve is moderately sclerotic. No hemodynamically significant valvular aortic stenosis. No aortic regurgitation is present. Mitral Valve: The mitral valve is normal in structure. There is no mitral regurgitation noted. Tricuspid Valve: The tricuspid valve is not well visualized. No tricuspid regurgitation. Pulmonic Valve: The pulmonic valve is not well visualized. Arteries: The aortic root is normal size. Pericardium/Pleura: No pericardial effusion seen. There is no pleural effusion. IVC/Hepatic Veins: The inferior vena cava was not visualized during the exam. Miscellaneous: The patient was in atrial fibrillation through out the study. MMode/2D Measurements Calculations IVSd (0.7-1.1 cm): 1.69 cm LVIDd (3.7-5.4 cm): 3.4 cm LVPWd (0.7-1.1 cm): 1.32 cm LVIDs (2.3-3.6 cm): 2.5 cm LA dimension (2.3-4.0 cm): 5.4 Ao root diam (2.0-3.2 cm): 3.2 cm cm FS: 25.6 % Ao root area: 7.8 cm2 EDV(Teich): 46.7 ml LVOT diam: 2.28 cm ESV(Teich): 22.6 ml LVOT area: 4.1 cm2 EF(Teich): 51.6 % LAV(MOD-sp2): 69.0 ml LAV(MOD-sp4): 61.4 ml LA A2 area: 24.3 cm2 LA A4 area: 22.2 cm2 LA length (vol): 6.4 cm LA vol: 71.2 ml LA vol index: 37.0 ml/m2 Doppler Measurements Calculations MV E max julia: 122.0 cm/sec Ao V2 max: 205.0 cm/sec MR max julia: 406.6 cm/sec Ao max P.8 mmHg MV V2 VTI: 27.0 cm Ao mean P.3 mmHg MV dec time: 0.15 sec Ao V2 mean: 163.5 cm/sec MV dec slope: 824.8 cm/sec?? Ao V2 VTI: 31.0 cm LORI(I,D): 2.29 cm2 LORI(V,D): 2.43 cm2 TV max P.0 mmHg LV V1 max: 121.4 cm/sec TR max julia: 273.9 cm/sec LV V1 max P.9 mmHg TR max P.0 mmHg LV V1 mean: 86.3 cm/sec RAP systole: 8.0 mmHg LV V1 mean P.3 mmHg LV V1 VTI: 17.3 cm + + + + + -+ + : Electronically : : : : signed by: Diogo : : Justino : : : : on: 10/25/2023, : : : : 8:45 PM : Transcribed By: STEFANY Performed At: 10/25/231536 Signed By: Diogo Badillo MD 10/25/232043 Normal [facility] Glucose Poct Glucometerson 0 10-25-2023 Commemt1 Glu2: Cleaned Meter Normal [facility] Comment on above: Result Comment: PERF ORMED BY: [place] [address] [place] [address] PATHOLOGIST [employer]CH[employer] MECHANIC KATARINA WILKERSON M.D. Performed By: #### L REUBEN, CUBLD #### [address] Glucose [Mass/Vol] 95 mg/dL Normal [facility] Comment on above: Result Comment: [place] Glucose Reference Range is dependent on time and content of last meal. Glucose of more than 200 mg/dL in a nonstressed, ambulatory subject supports the diagnosis of Diabetes Mellitus. Performed By: #### L REUBEN, CUBLD #### [address] Hemoglobin and Hematocriton 10-25-2023 Hematocrit (Bld) [Volume fraction] 27.1 % Low 34.0-46.4 [facility] Comment on above: Order Comment: Result Comment: PERF ORMED BY: [place] [address] PATHOLOGIST EXCHANGE MECHANIC KATARINA WILKERSON M.D. Performed By: #### L REUBEN, CUBLD #### [address] Hemoglobin (Bld) [Mass/Vol] 8.9 g/dL Low 11.8-15.4 [facility] Comment on above: Order Comment: Performed By: #### L REUBEN CUBLD #### [place] [id number] [facility] INR in Platelet poor plasma by Coagulation assayOrdered By: Tania Aguilar on 10-25-2023 INR Coag (PPP) [Relative time] 20.3 {INR} Off scale high [facility] Comment on above: Results calledat 021 9 on 10/25/23 INR Therapeutic Range A) Pre- and Peroperative OAT started two weeks before surgery. NOT HIP SURGERY: 1.5 - 2.5 HIP SURGERY: 2 - 3B) Primary and secondary prevention of venous THROMBOSIS: 2 - 3C) Active venous thrombosis, pulmonary embolismand prevention of recurrent venous thrombosis: 2 - 3D) Prevention of arterial thromboembolismincluding patients with mechanical heart valves: 3 - 4.5 Order Comment: REDRA W Result Comment: Resu lts called at 0219 on 10/25/23 INR Therapeutic Range A) Pre- and Peroperative OAT started two weeks before surgery. NOT HIP SURGERY: 1.5 - 2.5 HIP SURGERY: 2 - 3 B) Primary and secondary prevention of venous THROMBOSIS: 2 - 3 C) Active venous thrombosis, pulmonary embolism and prevention of recurrent venous thrombosis: 2 - 3 D) Prevention of arterial thromboembolism including patients with mechanical heart valves: 3 - 4.5 Performed By: #### L REUBEN, DARYA #### [address] Lactate [Moles/volume] in Se rum or PlasmaOrdered By: Tania Aguilar on 10-25-2023 Lactate [Moles/Vol] 1.8 mmol/L Normal 0.5-2.2 [facility] Comment on above: Result Comment: PERF ORMED BY: [place] [address] PATHOLOGIST EXCH[employer] MECHANIC KATARINA WILKERSON M.D. Performed By: #### L DARYA ALEXIS #### [address] Lactate [Moles/Vol] Lactate [Moles/volum e] in Serum or Plasma 0.5-2.2 [facility] Magnesium [Mass/volume] in S haily or PlasmaOrdered By: Lindsey Hickey on 10-25-2023 Magnesium [Mass/Vol] 1.8 mg/dL Low 1.9-2.7 [facility] Comment on above: Order Comment: draw everything at 0900 DIALYSIS WILL DRAW SENT LABELS AND TUBES AD Result Comment: PERF ORMED BY: [place] [address] PATHOLOGIST EXCHANGE MECHANIC KATARINA WILKERSON M.D. Performed By: #### L REUBEN, PHOEBELD #### [place] [id number] [facility] Magnesium [Mass/Vol] Magnesium [Mass/vol ume] in Serum or Plasma Low 1.9-2.7 [facility] Potassium [Moles/volume] in Serum or PlasmaOrdered By: Tania Aguilar on 10-25-2023 Potassium [Moles/Vol] 5.6 mmol/L High 3.5-5.1 [facility] Comment on above: Result Comment: PERF ORMED BY: [place] [address] PATHOLOGIST EXCHANGE MECHANIC KATARINA WILKERSON M.D. Performed By: #### L REUBENPHOEBESHAYNE #### [facility] [address] [place], [place] [address] [place] Prothrombin Time INRon 10-24 INR Coag (PPP) [Relative time] 1.9 {INR} Normal [facility] Comment on above: Order Comment: draw everything at 0900 DIALYSIS WILL DRAW SENT LABELS AND TUBES AD Result Comment: INR Therapeutic Range A) Pre- and Peroperative OAT started two weeks before surgery. NOT HIP SURGERY: 1.5 - 2.5 HIP SURGERY: 2 - 3 B) Primary and secondary prevention of venous THROMBOSIS: 2 - 3 C) Active venous thrombosis, pulmonary embolism and prevention of recurrent venous thrombosis: 2 - 3 D) Prevention of arterial thromboembolism including patients with mechanical heart valves: 3 - 4.5 PERFORMED BY: [place] [address] PATHOLOGIST EXCHANGE MECHANIC KATARINA WILKERSON M.D. Performed By: #### P T #### [facility] [address] [place], [place] [id number] [facility] PT Coag (PPP) [Time] 21.7 s Significant change up 9.0-12.9 [facility] Comment on above: Order Comment: draw everything at 0900 DIALYSIS WILL DRAW SENT LABELS AND TUBES AD Result Comment: A matocrit value greater than 55% may lead to inaccurate results in coagulation testing. Patients having hematocrit values >55% require a special collection tube for coagulation studies. Please contact the laboratory at [phone] for redraw instructions. Performed By: #### P T #### [facility] [address] [place], [place] [address] [place] Prothrombin time (PT)Ordered By: Tanai Aguilar on 10-25-2023 PT Coag (PPP) [Time] 215.8 s High 9.0-12.9 [facility] Comment on above: A hematocrit value g reater than 55% may lead to inaccurate results in coagulation testing. Patients having hematocrit values >55% require a special collection tube for coagulation studies. Please contact the laboratory at [phone] for redraw instructions. Order Comment: REDRA W Result Comment: A he matocrit value greater than 55% may lead to inaccurate results in coagulation testing. Patients having hematocrit values >55% require a special collection tube for coagulation studies. Please contact the laboratory at [phone] for redraw instructions. Performed By: #### L DARYA ALEXIS #### [place] [id number] [facility] Respiratory specimen influen za A virus, influenza B virus, respiratory syncytical virOrdered By: Tania Aguilar on 10-25-2023 SARS-CoV-2 (COVID-19) RNA MARCO+probe Ql (Unsp spec) Respiratory specimen influenza A virus, influenza B virus, respiratory syncytical vir [facility] Stool gastrointestinal hemog lobin detectionOrdered By: Tania Aguilar on 10-25-2023 Hemoglobin.gastrointes tinal Ql (Stl) Stool gastrointestinal hemoglobin detection [facility] Troponin I High Sensitivityo n 10-25-2023 Troponin I High Sensitivity 83.7 pg/mL Off scale high 0.0-15.0 [facility] Comment on above: Result Comment: Crit ical Result : Called to and read back by: ALINA VALERO at: 10/25/2023 01:20:54 by:[id number] PERFORMED BY: [place] [id number] PATHOLOGIST EXCHANGE MECHANIC KATARINA WIKLERSON M.D. Performed By: #### L DARYA ALEXIS #### [place] [id number] [facility] Troponin I.cardiac [Mass/vol ume] in Serum or Plasma by Detection limit <= 0.01 ng/Ordered By: Tania Aguilar on 10-25-2023 Troponin I.cardiac DL <= 0.01 ng/mL [Mass/Vol] 83.7 pg/mL High 0.0-15.0 [facility] Comment on above: Critical Result : Ca lled to and read back by: ALINA VALERO at: 10/25/2023 01:20:54 by:[id number] Troponin I.cardiac DL <= 0.01 ng/mL [Mass/Vol] Troponin I.cardiac [Mass/volume] in Serum or Plasma by Detection limit <= 0.01 ng/ Critically high 0.0-15.0 [facility] Comment on above: Critical Result : Ca lled to and read back by: ALINA VALERO at: 10/25/2023 01:20:54 by:[id number] XR chest 2V*on 10-25-2023 XR chest 2V* [facility] [place] [address] [place] [address] XRay Report Signed Patient: Edita Costa MR#: [id number] : 1950 Acct:[id number] Age/Sex: 73 / F ADM Date: 10/24/23 Loc: Room: [address] [place] [address] Type: ADM IN Attending Dr: Coreen Jaffe MD Copies to: MD Coreen Rosado MD Ordering Provider: Tania Aguilar MD Date of Service: 10/24/23 XR/XR chest 2V*: Nausea/Vomiting/Diarrhea Chest 2 views CLINICAL HISTORY: Diarrhea for 3 days. A. fib. COMPARISON: Chest 03/28/2021 FINDINGS: Cardiomegaly with vascular congestion and small left-sided pleural effusion is new when compared to the prior study. No consolidation pneumothorax or free air. XR/XR chest 2V* IMPRESSION: CHF FINDINGS, NEW SINCE 2021 WITH SMALL LEFT PLEURAL EFFUSION. Impression dictated by: Moises Camargo Jr., D.ODiana10/25/2023 8:16 AM Dictation Location: [place] [address] Transcribed By: [facility] 10/25/23815 Dictated By: Moises Camargo Jr, DO 10/25/23815 Signed By: 10/25/23815 Normal [facility] aPTT in Platelet poor plasma by Coagulation assayOrdered By: Tania Aguilar on 10-25-2023 aPTT Coag (PPP) [Time] Activated partial thromboplastin time (aPTT) in platelet poor plasma by coagulation a High 25.1-36.5 [facility] Comment on above: A hematocrit value g reater than 55% may lead to inaccurate results in coagulation testing. Patients having hematocrit values >55% require a special collection tube for coagulation studies. Please contact the laboratory at [phone] for redraw instructions. Alanine aminotransferase [En zymatic activity/volume] in Serum or PlasmaOrdered By: Tania Aguilar on 10-24-2023 ALT [Catalytic activity/Vol] 15 U/L Normal 7-52 [facility] Comment on above: Performed By: #### L IPASE, BMP, HEPATIC, SCAN CBC #### [facility] [address] [place] [address] [place] Albumin [Mass/volume] in Ser um or Plasma by Bromocresol green (BCG) dye binding methoOrdered By: Tania Aguilar on 10-24-2023 Albumin BCG dye [Mass/Vol] 3.0 g/dL Low 3.5-5.7 [facility] Alkaline phosphatase [Enzyma tic activity/volume] in Serum or PlasmaOrdered By: Tania Aguilar on 10-24-2023 ALP [Catalytic activity/Vol] 78 U/L Normal 34-104 [facility] Comment on above: Performed By: #### L IPASE, BMP, HEPATIC, SCAN CBC #### [facility] [address] [place] [address] [place] Anisocytosis [Presence] in B lood by Light microscopyOrdered By: Tania Aguilar on 10-24-2023 Anisocytosis Ql (Bld) Slight Normal [facility] Comment on above: Performed By: #### L IPASE, BMP, HEPATIC, SCAN CBC #### [facility] [address] [place] [address] [place] Aspartate aminotransferase [ Enzymatic activity/volume] in Serum or PlasmaOrdered By: Tania Aguilar on 10-24-2023 AST [Catalytic activity/Vol] 35 U/L Normal 13-39 [facility] Comment on above: Performed By: #### L IPASE, BMP, HEPATIC, SCAN CBC #### [facility] [address] [place] [address] [place] Automated basophil %Ordered By: Tania Aguilar on 10-24-2023 Basophils/100 WBC (Bld) 0.8 % Normal . [facility] Comment on above: Performed By: #### L IPASE, BMP, HEPATIC, SCAN CBC #### [facility] [address] [place] [address] Automated basophil countOrde red By: Tania Aguilar on 10-24-2023 Basophils (Bld) [#/Vol] 0.2 10*3/uL Normal 0.0-0.2 [facility] Comment on above: Performed By: #### L IPASE, BMP, HEPATIC, SCAN CBC #### [address] Automated blood monocyte cou ntOrdered By: Tania Aguilar on 10-24-2023 Monocytes (Bld) [#/Vol] 0.4 10*3/uL Normal 0.0-0.8 [facility] Comment on above: Performed By: #### L IPASE, BMP, HEPATIC, SCAN CBC #### [facility] [address] [place] [address] Automated eosinophil %Ordere d By: Tania Aguilar on 10-24-2023 Eosinophils/100 WBC (Bld) 0.0 % Normal . [facility] Comment on above: Performed By: #### L IPASE, BMP, HEPATIC, SCAN CBC #### [address] Automated eosinophil countOr dered By: Tania Aguilar on 10-24-2023 Eosinophils (Bld) [#/Vol] 0.0 10*3/uL Normal 0.0-0.45 [facility] Comment on above: Performed By: #### L IPASE, BMP, HEPATIC, SCAN CBC #### [facility] [address] [place] [address] Automated monocyte %Ordered By: Tania Aguilar on 10-24-2023 Monocytes/100 WBC (Bld) 2.2 % Normal . [facility] Comment on above: Performed By: #### L IPASE, BMP, HEPATIC, SCAN CBC #### [facility] [address] [place] [address] Automated neutrophil %Ordere d By: Tania Aguilar on 10-24-2023 Neutrophils/100 WBC (Bld) 95.0 % Normal . [facility] Comment on above: Performed By: #### L IPASE, BMP, HEPATIC, SCAN CBC #### [facility] [address] Bacterial blood cultureOrder ed By: Tania Aguilar on 10-24-2023 Bacteria identified Cx Nom (Bld) NO GROWTH 5 DAYS [facility] Basic Metabolic Panelon 09-26 Creatinine Clr Calc Pharmacy 6.34 Normal [facility] Comment on above: Performed By: #### L IPASE, BMP, HEPATIC, SCAN CBC #### [facility] [address] GFR/1.73 sq M.predicted MDRD (S/P/Bld) [Vol rate/Area] 4.424 mL/min/{1.73_m2} Normal [facility] Comment on above: Performed By: #### L IPASE, BMP, HEPATIC, SCAN CBC #### [facility] [address] [place] [address] Potassium [Moles/Vol] 5.5 mmol/L High 3.5-5.1 [facility] Comment on above: Result Comment: Hemo lysis is present at a level that could interfere with the result. Contact lab if redraw is required Performed By: #### L IPASE, BMP, HEPATIC, SCAN CBC #### [facility] [address] [place] [address] Bilirubin.direct [Mass/volum e] in Serum or PlasmaOrdered By: Tania Aguilar on 10-24-2023 Bilirubin.direct [Mass/Vol] 0.20 mg/dL High 0.03-0.18 [facility] Bilirubin.direct [Mass/Vol] Bilirubin.direct [Mass/volume] in Serum or Plasma High 0.03-0.18 [facility] Bilirubin.total [Mass/volume ] in Serum or PlasmaOrdered By: Tania Aguilar on 10-24-2023 Bilirubin [Mass/Vol] 0.6 mg/dL Normal 0.3-1.0 [facility] Comment on above: Performed By: #### L IPASE, BMP, HEPATIC, SCAN CBC #### [facility] Ctr [address] [place] [address] [place] Blood Cultureon 10-24-2023 Bacteria identified Cx Nom (Bld) NO GROWTH 5 DAYS PERFORMED BY: [place] [address] PATHOLOGIST EXCHANGE MECHANIC KATARINA WILKERSON M.D. Normal [facility] Comment on above: Performed By: #### L ACTIC, CUBLD #### [place] [address] [place] cells [Presence] in Blo od by Light microscopyOrdered By: Tania Aguilar on 10-24-2023 [place] cells LM Ql (Bld) Moderate [facility] Calcium [Mass/volume] in Ser um or PlasmaOrdered By: Tania Aguilar on 10-24-2023 Calcium [Mass/Vol] 9.4 mg/dL Normal 8.6-10.3 [facility] Comment on above: Performed By: #### L IPASE, BMP, HEPATIC, SCAN CBC #### [facility] [address] [place] [address] [place] Carbon dioxide, total [Moles /volume] in Serum or PlasmaOrdered By: Tania Aguilar on 10-24-2023 CO2 [Moles/Vol] 26.3 mmol/L Normal 21.0-31.0 [facility] Comment on above: Performed By: #### L IPASE, BMP, HEPATIC, SCAN CBC #### [facility] [address] [place] [address] [place] Chloride [Moles/volume] in S haily or PlasmaOrdered By: Tania Aguilar on 10-24-2023 Chloride [Moles/Vol] 87 mmol/L Low 98-107 [facility] Comment on above: Performed By: #### L IPASE, BMP, HEPATIC, SCAN CBC #### [facility] [address] [place] [address] [place] Creatinine [Mass/volume] in Serum or PlasmaOrdered By: Tania Aguilar on 10-24-2023 Creatinine [Mass/Vol] 8.81 mg/dL High 0.60-1.20 [facility] Comment on above: Performed By: #### L IPASE, BMP, HEPATIC, SCAN CBC #### [facility] [address] ECG 12 lead ECGon 10-24-2023 ECG 12 lead ECG [facility] [place] [address] [place] [address] Electrocardiograph Report Signed Patient: Edita Costa MR#: [id number] : 1950 Acct:[id number] Age/Sex: 73 / F ADM Date: 10/24/23 Loc: ER Room: Type: [facility] ER Attending Dr: Ordering Provider: Tania Aguilar MD Date of Service: 10/24/23 ECG/ECG 12 lead ECG: Nausea/Vomiting/Diarrhea Copies to: Test Reason : Blood Pressure : 125/81 mmHG Vent. Rate : 113 BPM Atrial Rate : 108 BPM P-R Int : * ms QRS Dur : 106 ms QT Int : 318 ms P-R-T Axes : * -36 119 degrees QTcB Int : 436 ms Atrial fibrillation with rapid ventricular response Left axis deviation Low voltage QRS Nonspecific intraventricular block Nonspecific ST and T wave abnormality Confirmed by Tania Aguilar MD ([id number]) on 10/24/2023 11:20:34 PM Referred By: Electronically Signed By: Tania Aguilar MD Transcribed By: MUS Signed By Tania Aguilar MD 09/26 11/18 2320 Normal [facility] Erythrocyte distribution wid th [Ratio] by Automated countOrdered By: Tania Aguilar on 10-24-2023 Erythrocyte distribution width (RBC) [Ratio] 16.2 % High 11.9-15.3 [facility] Comment on above: Performed By: #### L IPASE, BMP, HEPATIC, SCAN CBC #### [facility] [address] [place] [address] [place] Erythrocytes [#/volume] in B lood by Automated countOrdered By: Tania Aguilar on 10-24-2023 RBC (Bld) [#/Vol] 2.94 10*6/uL Low 3.60-5.00 [facility] Comment on above: Performed By: #### L IPASE, BMP, HEPATIC, SCAN CBC #### [facility] [address] Glucose [Mass/volume] in Ser um or PlasmaOrdered By: Tania Aguilar on 10-24-2023 Glucose [Mass/Vol] 112 mg/dL High 70-100 [facility] Comment on above: ADA recommended refe rence rangeRandom Glucose Reference Range is dependent on time and content of last meal. Glucose of more than 200 mg/dL in a nonstressed, ambulatory subject supports the diagnosis of Diabetes Mellitus. Result Comment: [place] om Glucose Reference Range is dependent on time and content of last meal. Glucose of more than 200 mg/dL in a nonstressed, ambulatory subject supports the diagnosis of Diabetes Mellitus. ADA recommended reference range Performed By: #### L IPASE, BMP, HEPATIC, SCAN CBC #### [facility] [address] [place] [address] Hematocrit [Volume Fraction] of Blood by Automated countOrdered By: Tania Aguilar on 10-24-2023 Hematocrit (Bld) [Volume fraction] 27.2 % Low 34.0-46.4 [facility] Comment on above: Performed By: #### L IPASE, BMP, HEPATIC, SCAN CBC #### [facility] [address] [place] [address] Hemoglobin [Mass/volume] in BloodOrdered By: Tania Aguilar on 10-24-2023 Hemoglobin (Bld) [Mass/Vol] 9.1 g/dL Low 11.8-15.4 [facility] Comment on above: Performed By: #### L IPASE, BMP, HEPATIC, SCAN CBC #### [facility] [address] [place] [address] Hemoglobin.gastrointestinal [Presence] in StoolOrdered By: Tania Aguilar on 10-24-2023 Hemoglobin.gastrointes tinal Ql (Stl) [facility] Hepatic Panelon 10-24-2023 Albumin [Mass/Vol] 3.0 g/dL Low 3.5-5.7 [facility] Comment on above: Performed By: #### L IPASE, BMP, HEPATIC, SCAN CBC #### [facility] [address] [place] [address] Bilirubin,Indirect 0.4 mg/dL Normal [facility] Comment on above: Performed By: #### L IPASE, BMP, HEPATIC, SCAN CBC #### [facility] [address] Bilirubin.indirect [Mass/Vol] 0.20 mg/dL High 0.03-0.18 [facility] Comment on above: Performed By: #### L IPASE, BMP, HEPATIC, SCAN CBC #### [facility] [address] Leukocytes [#/volume] correc hermilo for nucleated erythrocytes in Blood by Automated counOrdered By: Tania Aguilar on 10-24-2023 WBC corrected for nucl RBC Auto (Bld) [#/Vol] 19.9 10*3/uL High 3.8-11.6 [facility] Leukocytes [#/volume] in Blo od by Automated countOrdered By: Tania Aguilar on 10-24-2023 WBC (Bld) [#/Vol] 19.9 10*3/uL High 3.8-11.6 [facility] Comment on above: Performed By: #### L IPASE, BMP, HEPATIC, SCAN CBC #### [facility] [address] [place] [address] Lipase [Enzymatic activity/v olume] in Serum or PlasmaOrdered By: Tania Aguilar on 10-24-2023 Lipase [Catalytic activity/Vol] 7.0 U/L Low 11.0-82.0 [facility] Comment on above: Result Comment: PERF ORMED BY: [place] [address] PATHOLOGIST EXCHANGE MECHANIC KATARINA WILKERSON M.D. Performed By: #### L IPASE, BMP, HEPATIC, SCAN CBC #### [address] Lipase [Catalytic activity/Vol] Lipase [Enzymatic activity/volume] in Serum or Plasma Low 11.0-82.0 [facility] Lymphocytes [#/volume] in Bl ood by Automated countOrdered By: Tania Aguilar on 10-24-2023 Lymphocytes (Bld) [#/Vol] 0.4 10*3/uL Low 1.00-4.8 [facility] Comment on above: Performed By: #### L IPASE, BMP, HEPATIC, SCAN CBC #### [facility] [address] Lymphocytes/100 leukocytes i n Blood by Automated countOrdered By: Tania Aguilar on 10-24-2023 Lymphocytes/100 WBC (Bld) 2.0 % Normal . [facility] Comment on above: Performed By: #### L IPASE, BMP, HEPATIC, SCAN CBC #### [facility] [address] [place] [address] MCH [Entitic mass] by Automa hermilo countOrdered By: Tania Aguilar on 10-24-2023 MCH (RBC) [Entitic mass] 31.0 pg Normal 24.7-34.3 [facility] Comment on above: Performed By: #### L IPASE, BMP, HEPATIC, SCAN CBC #### [facility] [address] [place] [address] MCHC Auto (RBC) [Mass/Vol]Or dered By: Tania Aguilar on 10-24-2023 MCHC (RBC) [Mass/Vol] 33.5 g/dL 32.0-35.0 [facility] MCV [Entitic volume] by Auto mated countOrdered By: Tania Aguilar on 10-24-2023 MCV (RBC) [Entitic vol] 92.5 fL Normal 80-100 [facility] Comment on above: Performed By: #### L IPASE, BMP, HEPATIC, SCAN CBC #### [facility] [address] [place] [address] Monocyte distribution width [Entitic volume] in Blood by AutomatedOrdered By: Tania Aguilar on 10-24-2023 Monocyte distribution width Auto (Bld) [Entitic vol] 22.93 % High 0.00-20.00 [facility] Comment on above: For adults in ED, MD W > 20.0 may be associated with a higher risk of sepsis during the first 12 hrs of hospital admission Monocyte distribution width Auto (Bld) [Entitic vol] Monocyte distribution width [Entitic volume] in Blood by Automated High 0.00-20.00 [facility] Comment on above: For adults in ED, MD W > 20.0 may be associated with a higher risk of sepsis during the first 12 hrs of hospital admission Neutrophils [#/volume] in Bl ood by Automated countOrdered By: Tania Aguilar on 10-24-2023 Neutrophils (Bld) [#/Vol] 18.9 10*3/uL High 1.8-7.7 [facility] Comment on above: Performed By: #### L IPASE, BMP, HEPATIC, SCAN CBC #### [facility] [address] No Panel InformationOrdered By: Tania Aguilar on 10-24-2023 Estimated GFR (CKD-EPI) 4.424 mL/Min [facility] Creatinine Clearance (Chem 6.34 [facility] Nucleated erythrocytes [Pres ence] in Blood by Automated countOrdered By: Tania Aguilar on 10-24-2023 Nucleated RBC Auto Ql (Bld) 0.0 /100{WBC} 0-0.5 [facility] Platelet adequacy [Presence] in Blood by Light microscopyOrdered By: Tania Aguilar on 10-24-2023 Platelets LM Ql (Bld) Normal Normal [facility] Platelet mean volume [Entiti c volume] in Blood by Automated countOrdered By: Tania Aguilar on 10-24-2023 Platelet mean volume (Bld) [Entitic vol] 8.0 fL Normal 6.3-10.7 [facility] Comment on above: Performed By: #### L IPASE, BMP, HEPATIC, SCAN CBC #### [facility] [address] [place] [address] Platelet morphology finding [Identifier] in BloodOrdered By: Tania Aguilar on 10-24-2023 Platelet morphology finding Nom (Bld) Normal Normal [facility] Platelets [#/volume] in Bloo d by Automated countOrdered By: Tania Aguilar on 10-24-2023 Platelets (Bld) [#/Vol] 205 10*3/uL Normal 150-450 [facility] Comment on above: Performed By: #### L IPASE, BMP, HEPATIC, SCAN CBC #### [address] Poikilocytosis [Presence] in Blood by Light microscopyOrdered By: Tania Aguilar on 10-24-2023 Poikilocytosis LM Ql (Bld) Marked [facility] Polychromasia [Presence] in Blood by Light microscopyOrdered By: Tania Aguilar on 10-24-2023 Polychromasia LM Ql (Bld) Slight [facility] Protein [Mass/volume] in Ser um or PlasmaOrdered By: Tania Aguilar on 10-24-2023 Protein [Mass/Vol] 6.3 g/dL Low 6.4-8.9 [facility] Comment on above: Performed By: #### L IPASE, BMP, HEPATIC, SCAN CBC #### [address] RBC morphologyOrdered By: As brigido Aguilar on 10-24-2023 RBC morphology finding Nom (Bld) N/A [facility] Scan and CBCon 10-24-2023 Crenated RBC Moderate Normal [facility] Comment on above: Performed By: #### L IPASE, BMP, HEPATIC, SCAN CBC #### [address] Mean Corpuscular HGB Conc 33.5 g/dL Normal 32.0-35.0 [facility] Comment on above: Performed By: #### L IPASE, BMP, HEPATIC, SCAN CBC #### [address] Monocytes/100 WBC (Bld) 22.93 % High 0.00-20.00 [facility] Comment on above: Result Comment: For adults in ED, MDW > 20.0 may be associated with a higher risk of sepsis during the first 12 hrs of hospital admission Performed By: #### L IPASE, BMP, HEPATIC, SCAN CBC #### [facility] [address] [place] [address] NRBC% 0.0 /100{WBC} Normal 0-0.5 [facility] Comment on above: Performed By: #### L IPASE, BMP, HEPATIC, SCAN CBC #### [address] Platelet Estimate Normal Normal Normal [facility] Comment on above: Performed By: #### L IPASE, BMP, HEPATIC, SCAN CBC #### [address] Platelet Morphology Normal Normal Normal [facility] Comment on above: Result Comment: PERF ORMED BY: [place] [address] PATHOLOGIST EXCHANGE MECHANIC KATARINA WILKERSON M.D. Performed By: #### L IPASE, BMP, HEPATIC, SCAN CBC #### [address] Poikilocytosis Marked Normal [facility] Comment on above: Performed By: #### L IPASE, BMP, HEPATIC, SCAN CBC #### [address] Polychromasia Slight Normal [facility] Comment on above: Performed By: #### L IPASE, BMP, HEPATIC, SCAN CBC #### [address] Serum globulin measurement b y calculation (mass/volume)Ordered By: Tania Aguilar on 10-24-2023 Globulin (S) [Mass/Vol] 3.3 g/dL Normal [facility] Comment on above: Performed By: #### L IPASE, BMP, HEPATIC, SCAN CBC #### [facility] [address] [place] [address] Serum or plasma albumin/glob ulin mass ratioOrdered By: Tania Aguilar on 10-24-2023 Albumin/Globulin [Mass ratio] 0.9 {ratio} [facility] Comment on above: Performed By: #### L IPASE, BMP, HEPATIC, SCAN CBC #### [address] Serum or plasma anion gap de terminationOrdered By: Tania Aguilar on 10-24-2023 Anion gap [Moles/Vol] 18.2 mmol/L High 6.0-15.0 [facility] Comment on above: Performed By: #### L IPASE, BMP, HEPATIC, SCAN CBC #### [facility] [address] [place] [address] Serum or plasma non-glucuron idated bilirubin measurement (mass/volume)Ordered By: Tania Aguilar on 10-24-2023 Bilirubin.indirect [Mass/Vol] 0.4 mg/dL [facility] Bilirubin.indirect [Mass/Vol] Serum or plasma non-glucuronidated bilirubin measurement (mass/volume) [facility] Sodium [Moles/volume] in Ser um or PlasmaOrdered By: Tania Aguilar on 10-24-2023 Sodium [Moles/Vol] 126 mmol/L Low 136-145 [facility] Comment on above: Performed By: #### L IPASE, BMP, HEPATIC, SCAN CBC #### [address] Stool Occult Blood (Guaiac)o n 10-24-2023 Stool Occult Blood (Guaiac) Occult Blood Positive for Occult Blood by Guaiac Methodology -- Reference range = Negative PERFORMED BY: [place] [address] PATHOLOGIST EXCHANGE MECHANIC KATARINA WILKERSON M.D. Normal [facility] Comment on above: Performed By: #### L IPASE, BMP, HEPATIC, SCAN CBC #### [place] [id number] [facility] Troponin I High Sensitivityo n 10-24-2023 Troponin I High Sensitivity 70.2 pg/mL Off scale high 0.0-15.0 [facility] Comment on above: Result Comment: Crit ical Result : Called to and read back by: ALINA VALERO at: 10/24/2023 21:51:57 by:[id number] PERFORMED BY: [place] [address] PATHOLOGIST EXCHANGE MECHANIC KATARINA WILKRESON M.D. Performed By: #### C OVID19 FLU RSV, CEPHEID NEG #### [facility] [address] Urea nitrogen [Mass/volume] in Serum or PlasmaOrdered By: Tania Aguilar on 10-24-2023 Urea nitrogen [Mass/Vol] 63 mg/dL High 7-25 [facility] Comment on above: Performed By: #### L IPASE, BMP, HEPATIC, SCAN CBC #### [facility] [address] US ankle/arm indiceson 09-25 US ankle/arm indices [facility] [address] [place] [address] Ultrasound Report Signed Patient: Edita Costa MR#: [id number] : 1950 Acct:[id number] Age/Sex: 72 / F ADM Date: 09/26/23 Loc: [facility] Room: Type: [facility] Attending Dr: Dillon Wilson MD Ordering Provider: Dillon Wilson MD Date of Service: 09/26/23 US/US ankle/arm indices: I70.212 Copies to: Dillon Wilson MD LOWER EXTREMITY SEGMENTAL ARTERIAL DOPSCAN (PVR) INDICATION: Surveillance for moderate PAD. Surveillance after left leg bypass graft. PROCEDURE: Right arm blood pressure is 155. Pressures of the right leg are 91 at the ankle using the posterior tibial artery and cno at the ankle using the dorsalis pedis artery with ankle-brachial index of -NC- 0.59 . Pressures of the left leg are 218 at the ankle using the posterior tibial artery and cno at the ankle using the dorsalis pedis artery with ankle-brachial index of -NC- 1.41 . Wave forms by plethysmography are weakly biphasic in the right lower extremity and normal in the left lower extremity.. 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 Impression dictated by: Dillon Wilson MD09/26/2023 1:08 PM Dictation Location: [place] [address] Tech: Roberta De Guzman Transcribed By: MERVAT 09/26/23 1308 Dictated By: Dillon Wilson MD 09/26/23 1307 Signed By: 09/26/23 1308 Normal [facility] US arterial duplex LE LTon 0 09-26-2023 US arterial duplex LE LT [facility] [address] [place] [address] Ultrasound Report Signed Patient: Eidta Costa MR#: [id number] : 1950 Acct:[id number] Age/Sex: 72 / F ADM Date: 09/26/23 Loc: [facility] Room: Type: [facility] Attending Dr: Dillon Wilson MD Ordering Provider: Dillon Wilson MD Date of Service: 09/26/23 US/US arterial duplex LE LT: I70.212 Copies to: Dillon Wilson MD Left lower extremity duplex evaluation INDICATIONS: Surveillance study for left leg bypass graft. FINDINGS: Left lower extremity: The left leg bypass graft is patent. At the proximal anastomosis there is no elevated velocity of 356 cm/s. US/US arterial duplex LE LT IMPRESSION: Slightly elevated velocity proximally with patent bypass graft. Impression dictated by: Dillon Wilson MD09/26/2023 1:09 PM Dictation Location: [place] [address] Tech: Liseth Pineda Transcribed By: MERVAT 09/26/23 1309 Dictated By: Dillon Wilson MD 09/26/23 130 Signed By: 09/26/23 1309 Normal [facility] US AV Fistulaon 06-11-2023 US AV Fistula [facility] [address] [place] [address] Ultrasound Report Signed Patient: Edita Costa MR#: [id number] : 1950 Acct:[id number] Age/Sex: 72 / F ADM Date: 06/06/23 Loc: [facility] Room: Type: [facility] Attending Dr: Dillon Wilson MD Ordering Provider: Dillon Wilson MD Date of Service: 06/06/23 US/US AV Fistula: N18.6 - End stage renal disease Copies to: Dillon Wilson MD Left upper extremity fistula duplex evaluation INDICATIONS: Functional AV fistula FINDINGS: Left upper extremity: No narrowing was identified. The left upper extremity AV fistula is patent. The left subclavian and axillary veins are patent. Flow velocities were adequate. There was a pot ential pseudoaneurysm identified with thrombus. US/US AV Fistula IMPRESSION: As above Impression dictated by: Dillon Wilson MD06/11/2023 3:54 PM Dictation Location: [facility] Tech: Roberta Gege Transcribed By: MERVAT 06/11/231553 Dictated By: Dillon Wilson MD 06/11/231552 Signed By: 06/11/231553 Normal [facility] US ankle/arm indiceson 03-28 US ankle/arm indices [facility] [place] [address] Ultrasound Report Signed Patient: Edita Costa MR#: [id number] : 1950 Acct:[id number] Age/Sex: 72 / F ADM Date: 03/28/23 Loc: [facility] Room: Type: [facility] Attending Dr: Dillon Wilson MD Ordering Provider: [...] Wilson MD 03/28/231414 Signed By: 03/28/23 141 Normal [facility] US arterial duplex LE LTon 0 03-28-2023 US arterial duplex LE LT [facility] Main [address] [address] Ultrasound Report Signed Patient: Edita Costa MR#: [id number] : 1950 Acct:[id number] Age/Sex: 72 / F ADM Date: 03/28/23 Loc: [facility] Room: Type: [facility] CLI Attending Dr: Dillon Wilson MD [...] Wilson MD 03/28/231416 Signed By: 03/28/23 141 Normal [facility] US AV Fistulaon 03-16-2023 US AV Fistula [facility] Main [address] [address] Ultrasound Report Signed Patient: Edita Costa MR#: [id number] : 1950 Acct:[id number] Age/Sex: 72 / F ADM Date: 03/14/23 Loc: [facility] Room: Type: [facility] CLI Attending Dr: Dillon Wilson MD [...] Dillon Wilson MD03/16/2023 2:17 PM Dictation Location: [facility] Tech: Lauren Ambika Transcribed By: MERVAT 03/16/231416 Dictated By: Dillon Wilson MD 03/16/231416 Signed By: 03/16/231416 Normal [facility] Office Visit (Cardiology)on 08-20-2022 Follow-up visit Diagnoses/Problems [...] sent from PCP office. Chief Complaint EDITA COSTA is being seen for a 6 month [...] partial History of Leg surgery History of [employer]PONSIBILITY femoral-popliteal History of Tonsillectomy History of Vascular [...] TWICE DAILY NEEDED Ferrlecit 12.5 MG/ML Intravenous Azkoilhk30.5 mg everoy other week dialysis days Midodrine HCl - 5 MG Oral Tablettake 1 tablet before treatment and 1 tablet after treatment for low blood pressure. MiraLax 17 GM/SCOOP Oral PowderMIX 1 CAPFUL (17GM) IN 8 OUNCES OF WATER, JUICE, OR TEA AND DRINK DAILY. Pantoprazole Sodium 20 MG Oral Tablet Delayed ReleaseTAKE 1 TABLET BY MOUTH ONCE DAILY Pro-Stat Oral Ofpuyh40 ML TWICE DAILY Audrey-Rafael Oral TabletTake 1 tablet daily Rosuvastatin Calcium 10 MG Oral TabletTAKE 1 TABLET BY MOUTH ONCE DAILY Sevelamer Carbonate 800 MG Oral Tablet2 pills every meal and 1 with snacks Tylenol 325 MG Oral TabletTAKE 2 TABLET Every 6 hours PRN Warfarin Sodium 2 MG Oral TabletTAKE DIRECTED BY [facility] Zemplar 2 MCG/ML Intravenous Solution7 mcg 3 [...] for comp (more content not included)... Normal [employer] Tobacco Screening.on 023 Fall risk assessment a) No falls within the last year [facility] [employer] 250 DO Work Phone: Tobacco use status [facility]PH[facility] b) No [facility] DO Work Phone: POTASSIUMon 07-13-2022 Potassium [Moles/Vol] 5.6 mmol/L Critically high 3.5-5.1 [facility] Comment on above: Performed By: #### K #### [facility] [address] [place] [address] Dr. Neto Cornell POTASSIUMon 06-04-2022 Potassium [Moles/Vol] 5.3 mmol/L Critically high 3.5-5.1 [facility] Comment on above: Performed By: #### K #### [facility] [address] [place] [id number] Neto Cornell Covid-19 PCR ([facility])on SARS-CoV-2 (COVID-19) RNA MARCO+probe Ql (Unsp spec) Detected Abnormal NOT DETECTED [facility] Comment on above: Result Comment: This test is not yet approved or cleared by the [place] FDA. When there are no FDA-approved or cleared tests available, and other criteria are met, FDA can make tests available under an emergency access mechanism called an Emergency Use Authorization (EUA). The EUA for this test is supported by the [place] of Health and Human Service's (HHS's) declaration [...] longer be used). Performed By: #### C VDTB #### [facility] [id number] Neto Cornell Office Visit (Cardiology)on 03-20-2022 [...] (278.02,V85.24) (E66.3,Z68.28) Former smoker (V15.82) (Z87.891) quit 2001 Orders COPD (chronic obstructive pulmonary disease), Essential [...] up in 4 months Chief Complaint EDITA COSTA is being seen for a 6 month [...] TWICE DAILY NEEDED Ferrlecit 12.5 MG/ML Intravenous Atixsbgz47.5 mg everoy other week dialysis days MiraLax 17 GM/SCOOP Oral PowderMIX 1 CAPFUL (17GM) IN 8 OUNCES OF WATER, JUICE, OR TEA AND DRINK DAILY. Pantoprazole Sodium 20 MG Oral Tablet Delayed ReleaseTAKE 1 TABLET BY MOUTH ONCE DAILY Pro-Stat Oral Dcwzqb08 ML TWICE DAILY Audrey-Rafael Oral TabletTake 1 tablet daily Rosuvastatin Calcium 10 MG Oral TabletTAKE 1 TABLET BY MOUTH ONCE DAILY Sevelamer Carbonate 800 MG Oral Tablet2 pills every meal and 1 with snacks Tylenol 325 MG Oral TabletTAKE 2 TABLET Every 6 hours PRN Warfarin Sodium 2 MG Oral TabletTAKE DIRECTED BY THE [facility] Zemplar 2 MCG/ML Intravenous Solution7 mcg 3 [...] rashes. Neurological (more content not included)... Normal [employer] Tobacco Screening.on 023 Adult depression screening assessment No [employer] Clari 250 DO Work Phone: Fall risk assessment a) No falls within the last year [facility] [employer] 250 DO Work Phone: Tobacco use status CPHS b) No [facility] bessie 250 DO Work Phone: Laboratory - CoagulationOrde red By: Dillon Wilson on 03-07-2022 PT Coag (PPP) [Time] 21.9 s 9.0-12.9 [facility] Platelet poor plasma interna tional normalized ratio (INR) by coagulation assay (relatOrdered By: Dillon Wilson on 03-07-2022 INR Coag (PPP) [Relative time] 1.9 {INR} [facility] Comment on above: INR Therapeutic [...] # 0.1 103/ul Normal 0.0-0.1 [facility] Comment on above: Performed By: #### C BC #### [facility] [address] [address] [address] Neto Cornell Basophils/100 WBC (Bld) 0.9 % Normal 0.2-2.0 [facility] Comment on above: Performed By: #### C BC #### [facility] [address] [address] [address] Neto Cornell EO # 0.1 103/ul Normal 0.0-0.7 [facility] Comment on above: Performed By: #### C BC #### [facility] [address] [address] [address] Neto Cornell Eosinophils/100 WBC (Bld) 1.1 % Normal 0.9-7.0 [facility] Comment on above: Performed By: #### C BC #### [facility] [address] [address] [address] Neto Cornell Erythrocyte distribution width (RBC) [Ratio] 15.0 % Normal 11.0-15.0 [facility] Comment on above: Performed By: #### C BC #### [facility] [address] [place] [address] Dr. Neto Cornell Hematocrit (Bld) [Volume fraction] 35.8 % Critically low 36.0-48.0 [facility] Comment on above: Performed By: #### C BC #### [facility] [address] [place] [address] Dr. Neto Cornell Hemoglobin (Bld) [Mass/Vol] 11.8 g/dL Critically low 12.0-16.0 [facility] Comment on above: Performed By: #### C BC #### [facility] [address] [place] [address] Dr. Neto Cornell IG # 0.06 10e3/ul Critically high 0.00-0.03 [facility] Comment on above: Performed By: #### C BC #### [facility] [address] [place] [address] Dr. Neto Cornell IG % 0.7 % Critically high 0.0-0.5 [facility] Comment on above: Performed By: #### C BC #### [facility] [address] [place] [address] Dr. Neto Cornell LYMPH # 1.9 103/ul Normal 1.2-3.8 [facility] Comment on above: Performed By: #### C BC #### [facility] [address] [place] [address] Dr. Neto Cornell Lymphocytes/100 WBC (Bld) 20.2 % Critically low 20.5-60.0 [facility] Comment on above: Performed By: #### C BC #### [facility] [address] [place] [address] Dr. Neto Cornell MANUAL DIFF REQ NO Normal [facility] Comment on above: Performed By: #### C BC #### [facility] [address] [place] [address] Dr. Neto Cornell MCH (RBC) [Entitic mass] 32.8 pg Normal 26.7-34.0 [facility] Comment on above: Performed By: #### C BC #### [facility] [address] [address] [address] Neto Cornell MCHC (RBC) [Mass/Vol] 33.0 g/dL Normal 29.9-35.2 [facility] Comment on above: Performed By: #### C BC #### [facility] [address] [place] [address] Dr. Neto Cornell MCV (RBC) [Entitic vol] 99.4 fL Critically high 81.0-99.0 [facility] Comment on above: Performed By: #### C BC #### [facility] [address] [place] [address] Dr. Neto Cornell MONO # 0.9 103/ul Critically high 0.3-0.8 [facility] Comment on above: Performed By: #### C BC #### [facility] [address] [place] [address] Dr. Neto Cornell Monocytes/100 WBC (Bld) 9.6 % Normal 1.7-12.0 [facility] Comment on above: Performed By: #### C BC #### [facility] [address] [place] [address] Dr. Neto Cornell NEUT # 6.2 103/ul Normal 1.4-6.5 [facility] Comment on above: Performed By: #### C BC #### [facility] [address] [place] [address] Dr. Neto Cornell Neutrophils/100 WBC (Bld) 67.5 % Normal 43.0-75.0 [facility] Comment on above: Performed By: #### C BC #### [facility] [address] [place] [address] Dr. Neto Cornell Platelet mean volume (Bld) [Entitic vol] 8.7 fL Critically low 9.5-13.5 [facility] Comment on above: Performed By: #### C BC #### [facility] [address] [place] [address] Dr. Neto Cornell PLT 213 103/ul Normal 150-450 [facility] Comment on above: Performed By: #### C BC #### [facility] [address] [address] [address] Neto Cornell RBC 3.60 106/ul Critically low 4.20-5.40 [facility] Comment on above: Performed By: #### C BC #### [facility] [address] [address] [address] Neto Cornell WBC 9.2 103/ul Normal 4.0-11.0 [facility] Comment on above: Performed By: #### C BC #### [facility] [address] [address] [address] Neto Cornell PROTIMEon 08-29-2021 INR Coag (PPP) [Relative time] 2.22 {INR} Normal [facility] Comment on above: Performed By: #### P T #### [facility] [address] [place] [address] Dr. Neto Cornell INR GUIDELINES SEE BELOW Normal [facility] Comment on above: Result Comment: MERLYN RED INR: 2.0 - 3.0 CONDITIONS NOT LISTED BELOW 2.5 - 3.5 FOR PROSTHETIC HEART VALVE REPLACEMENT 2.5 - 3.5 RECURRENT THROMBOSIS Performed By: #### P T #### [facility] [address] [place] [address] Dr. Neto Cornell PT Coag (PPP) [Time] 22.8 s Critically high 9.0-11.6 [facility] Comment on above: Performed By: #### P T #### [facility] [address] [place] [address] Dr. Neto Cornell Tobacco Screening.on Adult depression screening assessment No [facility] [employer] bessie 250 DO Work Phone: Fall risk assessment a) No falls within the last year [facility] bessie 250 DO Work Phone: Tobacco use status CPHS b) No [facility] bessie 250 DO Work Phone: Tobacco Screening.on Fall risk assessment a) No falls within the last year [facility] bessie 250 DO Work Phone: Tobacco use status CPHS b) No -[facility] bessie 250 DO Work Phone: No Panel Informationon 03-28 3.14\S\3.14 Normal 0.45-5.33 [facility] benavidesy 250 DO Work Phone: Comment on above: PERFORMED BY:[address] [address] [address] [place], [place] [phone] MEDICAL DIRECTORKATARINA WILKERSON M.D. 35\S\35 Normal 10-42 [facility] benavidesy 250 DO Work Phone: 9.8\S\9.8 Normal 8.2-10.2 [facility] la 250 DO Work Phone: 29.1\S\29.1 Normal 22.0-30.0 [facility] la 250 DO Work Phone: 90\S\90 below low threshold 95-114 [facility] la 250 DO Work Phone: 5.1\S\5.1 Normal 3.5-5.1 [facility] 250 DO Work Phone: 131\S\131 below low threshold 136-146 [facility] 250 DO Work Phone: [phone] 9\S\9 Normal [facility] benavidesy 250 DO Work Phone: Comment on above: GFR estimated refere nce range: According to KDOQI guidelines, <60 ml/min/1.73m2 is sufficient to diagnose a patient with chronic kidney disease. 7\S\7 Normal [facility] benavidesy 250 DO Work Phone: 5.82\S\5.82 above high threshold 0.44-1.03 [facility] benavidesy 250 DO Work Phone: 26\S\26 above high threshold 9-23 -[facility] [employer] 250 DO Work Phone: 91\S\91 Normal 70-100 -[facility] [employer] 250 DO Work Phone: Comment on above: Random Glucose Refer ence Range is dependent on time and content of last meal. Glucose of more than 200 mg/dL in a nonstressed, ambulatory subject supports the diagnosis of Diabetes Mellitus. ADA recommended reference range Radiologyon 03-28-2021 XR Chest 2 Views Normal [facility] [employer] 250 DO Work Phone: CNOVon 02-14-2021 CNOV Office Visit (TXCTGL ) -- EDITA COSTA ([id number]) 1950 F TRN Date Time Provider Department 02/14/21 1:00 PM NEPHROLOGY [facility] TXCTGL During your visit today, we recorded the following information about you: Temperature Pulse Blood pressure Weight 97.5 degrees 62/minute 125/53 76.2 kg Height 1.689 m Zeke Chin MD 02/14/2021 2:01 PM Signed [facility] [place] [facility] Transplant Evaluation CC: Patient is a 70 year old female here for transplant candidacy evaluation. Reason for visit: here for evaluation to be a Kidney Transplant recipient. Referred by: Rayna Hoang MD [address] [place] [address] I will communicate with the referring provider by letter and/or shared electronic medical record. 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 Patient reports renal biopsy at [facility], will obtain pathology . Patient has been on dialysis since August 2019. Other significant history includes: ? Former smoker, quit 20 years ago. 30 pack year. Will need a CT chest ? Anemia of chronic kidney disease ? Secondary hyperparathyroidism ? Hypertension ? paroxysmal atrial fibrillation status post cardioversion, patient is on Eliquis ? L leg nerve damage ? Left leg bypass, at [facility], Op-report requested. Patient reports scheduled for angiogram of L leg on 02/28/21 ? 2 pregnancies. Denies miscarriage ? cholecystectomy ? Hysterectomy, KASSIDY ? Patient denies stroke, cancer, [place], or blood clot. ACCESS: L AV fistula [...] Per patient recent cardiac work up at [facility], records requested. PAP Test: Not applicable, [facility]. Mammogram: Completed on 06/30/20, results FINDINGS: DIAGNOSTIC CATEGORY (more content not included)... Normal [facility] Office Visit (TXCTGL ) -- EDITA COSTA ([id number]) 1950 F TRN Date Time Provider Department 02/14/21 12:30 PM UROLOGY [facility] TXCTGL During your visit today, we recorded the following information about you: Temperature Pulse Blood pressure Weight 97.5 degrees 62/minute 125/53 76.2 kg Height 1.689 m Mary Rivers MD 02/14/2021 2:10 PM Signed [facility] Transplant Evaluation CC: Patient is a 70 year old female here for transplant candidacy evaluation. Reason for visit: here for evaluation to be a Kidney Transplant recipient. Referred by: Rayna Hoang MD [address] [place] [address] I will communicate with the referring provider by letter and/or shared electronic medical record. 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 Patient reports renal biopsy at [facility], will obtain pathology . Patient has been on dialysis since August 2019. Other significant history includes: ? Former smoker, quit 20 years ago. 30 pack year. Will need a CT chest ? Anemia of chronic kidney disease ? Secondary hyperparathyroidism ? Hypertension ? paroxysmal atrial fibrillation status post cardioversion, patient is on Eliquis ? L leg nerve damage ? Left leg bypass, at [facility], Op-report requested. Patient reports scheduled for angiogram of L leg on 02/28/21 ? 2 pregnancies. Denies miscarriage ? cholecystectomy ? Hysterectomy, KASSIDY ? Patient denies stroke, cancer, [place], or blood clot. ACCESS: L AV fistula [...] Per patient recent cardiac work up at [facility], records requested. PAP Test: Not applicable, [facility]. Mammogram: Completed on 06/30/20, results FINDINGS: DIAGNOSTIC CATEGORY 2--BENIGN FINDING: RIGHT BREAST: No significant suspicious finding. scattered benign-appearing calcifications are present. scattered benign-appearing lymph nodes are present. No significant (more content not included)... Normal [facility] CNOV Office Visit (TXCTGL ) -- EDITA COSTA ([id number]) 1950 F TRN Date Time Provider Department 02/14/21 7:45 AM PRE TX GROUP EDUCATION TXCTGL During your visit today, we recorded the following information about you: Yassine Gupta RN 02/14/2021 10:09 AM Signed PRE-TRANSPLANT PATIENT [...] about Kidney Allocation Policy -Directions to access [facility]'s data through the [facility] website. -Informed Consent for Transplant Program Participation patient education packet -National Kidney Registry pamphlet: Yes Method of Instruction: Group class instruction Written instruction - handouts Verbal instruction Patient/Family Response: patient verbalized understanding of the information discussed. Follow-Up Plan: Complete - No need for follow-up Referral/Recommendation: None Yassine Gupta RN Pre-Pooling Operator Referring Provider: CECY LOVE [[id number]] Allergies As of Date: 02/14/2021 (Not on [...] Date: 02/14/2021 (None) Encounter Status:Closed by YASSINE GUPTA on 02/14/21 [facility] CNSWon 02-14-2021 CNSW Social Work (TXCTGL) -- EDITA COSTA ([id number]) 1950 F TRN Date Time Provider Department 02/14/21 9:30 AM ELLIOTTEVELIA POLO During your visit today, we recorded the following information about you: KRISHAN Poole 02/16/2021 11:57 AM Signed PSYCHOSOCIAL FACE TIME EVALUATION FOR KIDNEY TRANSPLANT COVID-19 PRECAUTIONS Social Supports: Pt's sister and son have confirmed support. Financial Concerns: Pt has Medicare only with a high monthly premium. She was advised to apply for Medicaid. Compliance: Good compliance reported by [facility] [address] Mental Health: Stable Substance Abuse: Denies SIPAT: 6 REFERRAL: Edita Costa was referred to Social Work for a psychosocial evaluation to establish if she would be a suitable candidate to receive a kidney transplant. DIALYSIS START DATE: August 2019 She receives dialysis at [facility] in [place], [place] on MWF. Phone is [phone]. The pt does use assistive devices for ambulation. She used a wheelchair today and takes a cane with her wherever she goes. This social work psychosocial evaluation was completed with Edita Costa on February 14, 2021. She was accompanied by her son, Sedrick Lin. Race/Gender: White female [place] Citizen: Yes IDENTIFYING INFORMATION/LIVING SITUATION Edita Costa [id number] (physical address is [facility] [place] [address]. The home is about 1.5 hours. Edita Costa has been living in this home for four years. This is her sister's rchjpo-wz-ram's home. Pt cares for her. Edita Costa is is independent with all ADL's, except cleaning and shopping. The pt drives and has a working vehicle. Caregiver responsibilities: Petrona Kev, 89 years old. She is usually in a wheelchair. Pt helps her with ADLs. Pets in the home: None TRANSPLANT LODGING PLANS FOR PATIENTS WHO LIVE 2.5 OR MORE HOURS AWAY FROM [facility]: Do you have the financial means to stay in the area for four weeks or more post-transplant? NA COMPREHENSION OF MEDICAL SITUATION Edita Costa reports that her kidney disease is due [...] Renal diet A1c if Diabetic: NA Edita Costa was able to recall information that was presented to her today during the kidney transplant educational class. Pt understands that the risks of transplant are rejection, infection, bleeding, . Edita Costa does understand and, has knowledge of the [...] $500.000. She plans to f/u with the [facility] for assistance. Have you stopped taking medication because you felt you didn't need it or because of side-effects? No Moral, jainism, or ethical views about transplants or blood [...] get ri (more content not included)... Normal [facility] CT ABD/PEL WO IVCONon 2020 CT ABD/PEL WO IVCON * * *Final Report* * * DATE OF EXAM: Feb 14 2021 11:28AM [facility] - CT ABD/PEL WO IVCON / [...] osteopenia. No suspicious lesion. Lower thorax: Unremarkable. Hand Buffer (topogram) images: No additional findings. IMPRESSION: Extensive aortic and iliac arterial calcifications. Public Relations Sales Marketing: TONIE Transcribe Date/Time: Feb 14 2021 11:48A Dictated by : NIGHAT BRITO MD This examination was interpreted and the report reviewed and electronically signed by: ALYSSA MEDEROS MD on Feb 14 2021 1:44PM EST [id number] Normal [facility] CNPN Telephone (TXCTGL) -- EDITA COSTA ([id number]) 1950 F TRN Date Time Provider Department 02/10/21 LEYLAMARISELAPAOLO INA TXCTGL During your visit today, we recorded the following information about you: Ina John 02/10/2021 3:38 PM Signed Returned call to patient, advised her to eat, drink, take her medications as normal the day of her kidney transplant evaluation appointments of 02/14/21, and verbalized understanding. Ina John Allergies As of Date: 02/10/2021 (Not on File) Date Reviewed: Never Reviewed Reason for Visit: Returning Patient's Call [408] Problem List As Of Date: 02/10/2021 (None) Encounter Status:Closed by INA LOPEZ on 02/10/21 [facility] No Panel Informationon 01-26 26.0\S\26.0 Normal 22.0-30.0 -[facility] bessie 250 DO Work Phone: Comment on above: PERFORMED BY:[address] [address] [address] [place], [place] [phone] MEDICAL DIRECTORKATARINA WILKERSON M.D. 92\S\92 below low threshold 95-114 [facility] bessie 250 DO Work Phone: 4.4\S\4.4 Normal 3.5-5.1 [facility] [employer] bessie 250 DO Work Phone: 133\S\133 below low threshold 136-146 [facility] ebssie 250 DO Work Phone: Laboratory - Microbiology an d Antimicrobial susceptibilityon 01-24-2021 SARS-CoV-2 (COVID-19) RNA MARCO+probe Ql (Unsp spec) [facility] bessie Keke DO Work Phone: No Panel Informationon 01-24 Negative Normal Negative [facility]ke [facility] Work Phone: Comment on above: This is a duplicate Lena SARS Antigen (MADALYN) result to be used for statistical tracking purpose only.PERFORMED BY:[facility] [place], [place] [id number] MEDICAL DIRECTORKATARINA WILKERSON M.D. Tobacco Screening.on 021 Fall risk assessment a) No falls within the last year [facility] Xooker DO Work Phone: Tobacco use status CP b) No [facility] DO Work Phone: CNPNon 12-15-2020 CNPN Telephone (TXCTGL) -- EDITA COSTA ([id number]) 1950 F TRN Date Time Provider Department 12/15/20 INA LOPEZ During your visit today, we recorded the following information about you: Ina Yanezka 12/15/2020 3:51 PM Signed Ina Lopez December 15, 2020 2:20 PM Patient called and left a voicemail message requesting status of kidney transplant evaluation appointments. Routed message to return patient's call, as appointments previously scheduled. Allergies As of Date: 12/15/2020 (Not on File) Date Reviewed: Never Reviewed Reason for Visit: Return Call Request [[id number]] Appointment [186] Problem List As Of Date: 12/15/2020 (None) Encounter Status:Closed by INA LOPEZ on 12/15/20 [facility] 09-12-2020 CNPN Telephone (TXCTGL) -- EDITA COSTA ([id number]) 1950 F TRN Date Time Provider Department 09/12/20 INA LOPEZ TXCTGL During your visit today, we recorded the following information about you: Ina John 09/12/2020 10:22 AM Signed Called and spoke with patient regarding kidney transplant, intake completed, and to nurse coordinator for review. Ina Lopez Allergies As of Date: 09/12/2020 (Not on File) Date Reviewed: Never Reviewed Reason for Visit: Referral - Kidney Txp [[id number]] Primary Visit Diagnosis:Hypertension, unspecified type [I10] Other Visit Diagnoses:ESRD on dialysis (HCC) [N18.6, Z99.2] Pre-transplant evaluation for ESRD (end stage renal disease) [Z01.818] Order(s):CONSULT TO TRANSPLANT CENTER [[id number]] Order #: [id number]: 1 Problem List As Of Date: 09/12/2020 (None) Encounter Status:Closed by INA LOPEZ on 09/12/20 [facility] 09-08-2020 CNPN Telephone (TXCTGL) -- EDITA COSTA ([id number]) 1950 F TRN Date Time Provider Department 09/08/20 INA LOPEZ TXCTGL During your visit today, we recorded the following information about you: Ina John 09/08/2020 11:41 AM Signed Returned patient's call regarding kidney transplant, she requests call back on 09/12/20 at 9:30AM for intake, and verbalized understanding. Ina Lopez Allergies As of Date: 09/08/2020 (Not on File) Date Reviewed: Never Reviewed Reason for Visit: Returning Patient's Call [408] Problem List As Of Date: 09/08/2020 (None) Encounter Status:Closed by INA LOPEZ on 09/08/20 Normal [facility] CARDIAC STRESS/REST (ANDREW CARDIAL PERFUSION/MIBI)on 12-08-2019 [facility] CARDIAC STRESS/REST (MYOCARDIAL PERFUSION/MIBI) Patient Name: EDITA COSTA STUDY: MYOCARDIAL PERFUSION STRESS TEST WITH LEXISCAN Performing facility: [facility], [address] [place] [address], [address], [address] Provider: Marguerite UREÑA PCP: Dr. eTo BYRD Supervising provider: CHARANJIT CAMPBELL INDICATION: SOB HISTORY: Gender: F; Age: 69 y/o ; Height: 167.64 cm; Weight: 62.3671979 kg. High Cholesterol; HTN SOB COPD Family HX CAD; AFIB Quit smoking REMOTE years ago. COMPARISON: ACCESSION NUMBER(S): [id number] ORDERING CLINICIAN: LEATHA UREÑA TECHNIQUE: ONE DAY [...] comparison. Electronically signed by: LEATHA UREÑA MD [facility] CARDIAC STRESS/REST INJE CTIONon 12-08-2019 [facility] CARDIAC STRESS/REST INJECTION Patient Name: EDITA COSTA STUDY: MYOCARDIAL PERFUSION STRESS TEST WITH LEXISCAN Performing facility: [facility], [address] [place] [address], [address], [address] Provider: Marguerite UREÑA PCP: Dr. Teo BYRD Supervising provider: CHARANJIT CAMPBELL INDICATION: SOB HISTORY: Gender: F; Age: 69 y/o ; Height: 167.64 cm; Weight: 62.4816351 kg. High Cholesterol; HTN SOB COPD Family HX CAD; AFIB Quit smoking REMOTE years ago. COMPARISON: ACCESSION NUMBER(S): [id number] ORDERING CLINICIAN: LEATHA UREÑA TECHNIQUE: ONE DAY [...] comparison. Electronically signed by: LEATHA UREÑA MD [facility] PART 2 STRESS OR REST (N O CHARGE)on 12-08-2019 [facility] PART 2 STRESS OR REST (NO CHARGE) Patient Name: EDITA COSTA STUDY: MYOCARDIAL PERFUSION STRESS TEST WITH LEXISCAN Performing facility: [facility], [address] [place] [address], [address], [place] [id number] [facility] Provider: Marguerite UREÑA PCP: Dr. Teo BYRD Supervising provider: CHARANJIT CAMPBELL INDICATION: SOB HISTORY: Gender: F; Age: 69 y/o ; Height: 167.64 cm; Weight: 62.5081704 kg. High Cholesterol; HTN SOB COPD Family HX CAD; AFIB Quit smoking REMOTE years ago. COMPARISON: ACCESSION NUMBER(S): [id number] ORDERING CLINICIAN: LEATHA UREÑA TECHNIQUE: ONE DAY [...] comparison. Electronically signed by: LEATHA UREÑA MD [facility] Vital Signs Date Time Vital Sign Value Performing Clinician Facility 01-07-2024 15:05-0500 Body temperature 97.5 [degF] Curtis Byrd II Work Phone: [facility] 01-07-2024 15:05-0500 Diastolic blood pressure 80 mm[Hg] Curtis Byrd II Work Phone: [facility] 01-07-2024 15:05-0500 Heart rate 86 /min Curtis Byrd II Work Phone: [facility] 01-07-2024 15:05-0500 Respiratory rate 18 /min Curtis Byrd II Work Phone: [facility] 01-07-2024 15:05-0500 SaO2% (BldA) [Mass fraction] 91 % Curtis Byrd II Work Phone: [facility] 01-07-2024 15:05-0500 Systolic blood pressure 142 mm[Hg] Curtis Byrd II Work Phone: [facility] 01-07-2024 13:57-0500 Body height 167.64 cm Curtis Byrd II Work Phone: [facility] 01-07-2024 06:00-0500 Body weight 73 kg Curtis Byrd II Work Phone: [facility] 01-05-2024 04:50-0500 Diastolic blood pressure 59 mm[Hg] Curtis Byrd II Work Phone: [facility] 01-05-2024 04:50-0500 Heart rate 107 /min Curtis Byrd II Work Phone: [facility] 01-05-2024 04:50-0500 Respiratory rate 18 /min Curtis Byrd II Work Phone: [facility] 01-05-2024 04:50-0500 SaO2% (BldA) [Mass fraction] 93 % Curtis Byrd II Work Phone: [facility] 01-05-2024 04:50-0500 Systolic blood pressure 128 mm[Hg] Curtis Byrd II Work Phone: [facility] 01-05-2024 03:28-0500 Body height 167.64 cm Curtis Byrd II Work Phone: [facility] 01-05-2024 03:28-0500 Body temperature 97.7 [degF] Curtis Byrd II Work Phone: [facility] 01-05-2024 03:28-0500 Body weight 73.5 kg Curtis Byrd II Work Phone: [facility] 12-19-2023 15:42-0400 Diastolic blood pressure 81 mm[Hg] Curtis Byrd II Work Phone: [facility] 12-19-2023 15:42-0400 Heart rate 109 /min Curtis Byrd II Work Phone: [facility] 12-19-2023 15:42-0400 Respiratory rate 16 /min Curtis Byrd II Work Phone: [facility] 12-19-2023 15:42-0400 SaO2% (BldA) [Mass fraction] 96 % Curtis Byrd II Work Phone: [facility] 12-19-2023 15:42-0400 Systolic blood pressure 150 mm[Hg] Curtis Byrd II Work Phone: [facility] 12-19-2023 12:22-0400 Body height 168.91 cm Curtis Byrd II Work Phone: [facility] 12-19-2023 12:22-0400 Body weight 74.38 kg Curtis Byrd II Work Phone: [facility] 12-12-2023 12:17-0400 Body temperature 97.8 [degF] II Curtis Byrd Work Phone: [facility] 12-12-2023 12:17-0400 Diastolic blood pressure 82 mm[Hg] II Curtis Byrd Work Phone: [facility] 12-12-2023 12:17-0400 Heart rate 62 /min II Curtis Byrd Work Phone: [facility] 12-12-2023 12:17-0400 Respiratory rate 16 /min II Curtis Byrd Work Phone: [facility] 12-12-2023 12:17-0400 SaO2% (BldA) [Mass fraction] 98 % II Curtis Byrd Work Phone: [facility] 12-12-2023 12:17-0400 Systolic blood pressure 126 mm[Hg] II Curtis Byrd Work Phone: [facility] 10-30-2023 15:48-0400 Body temperature 98 [degF] II Curtis Byrd Work Phone: [facility] 10-30-2023 15:48-0400 Diastolic blood pressure 80 mm[Hg] II Curtis Byrd Work Phone: [facility] 10-30-2023 15:48-0400 Heart rate 79 /min II Curtis Byrd Work Phone: [facility] 10-30-2023 15:48-0400 Respiratory rate 18 /min II Curtis Byrd Work Phone: [facility] 10-30-2023 15:48-0400 SaO2% (BldA) [Mass fraction] 95 % II Curtis Byrd Work Phone: [facility] 10-30-2023 15:48-0400 Systolic blood pressure 130 mm[Hg] II Curtis Byrd Work Phone: [facility] 10-30-2023 06:00-0400 Body weight 82.9 kg II Curtis Byrd Work Phone: [facility] 10-30-2023 04:00-0400 Inhaled oxygen flow rate 1 L/min II Curtis Byrd Work Phone: [facility] 10-28-2023 12:41-0400 Body height 167.64 cm II Curtis Byrd Work Phone: [facility] 10-25-2023 02:59-0400 Diastolic blood pressure 53 mm[Hg] II uCrtis Byrd Work Phone: [facility] 10-25-2023 02:59-0400 Heart rate 93 /min II Curtis Byrd Work Phone: [facility] 10-25-2023 02:59-0400 Respiratory rate 22 /min II Curtis Byrd Work Phone: [facility] 10-25-2023 02:59-0400 SaO2% (BldA) [Mass fraction] 95 % II Curtis Byrd Work Phone: [facility] 10-25-2023 02:59-0400 Systolic blood pressure 120 mm[Hg] II Curtis Byrd Work Phone: [facility] 10-24-2023 19:09-0400 Body height 167.64 cm II Curtis Byrd Work Phone: [facility] 10-24-2023 19:09-0400 Body temperature 99.3 [degF] II Curtis Byrd Work Phone: [facility] 10-24-2023 19:09-0400 Body weight 82.6 kg II Curtis Byrd Work Phone: [facility] 10-24-2023 19:09-0400 Diastolic blood pressure 81 mm[Hg] II Curtis Byrd Work Phone: [facility] 10-24-2023 19:09-0400 Heart rate 118 /min II Curtis Byrd Work Phone: [facility] 10-24-2023 19:09-0400 Respiratory rate 20 /min II Curtis Byrd Work Phone: [facility] 10-24-2023 19:09-0400 SaO2% (BldA) [Mass fraction] 98 % II Curtis Byrd Work Phone: [facility] 10-24-2023 19:09-0400 Systolic blood pressure 125 mm[Hg] II Curtis Byrd Work Phone: [facility] 09-26-2023 11:07-0400 Body height 168.91 cm II Curtis Byrd Work Phone: [facility] 09-26-2023 11:07-0400 Body mass index (BMI) [Ratio] 27.5 kg/m2 II Curtis Byrd Work Phone: [facility] 09-26-2023 11:07-0400 Body temperature 97.4 [degF] II Curtis Byrd Work Phone: [facility] 09-26-2023 11:07-0400 Body weight 78.47 kg II Curtis Byrd Work Phone: [facility] 09-26-2023 11:07-0400 Diastolic blood pressure 60 mm[Hg] II Curtis Byrd Work Phone: [facility] 09-26-2023 11:07-0400 Heart rate 108 /min II Curtis Byrd Work Phone: [facility] 09-26-2023 11:07-0400 SaO2% (BldA) [Mass fraction] 99 % II Curtis Byrd Work Phone: [facility] 09-26-2023 11:07-0400 Systolic blood pressure 98 mm[Hg] II Curtis Byrd Work Phone: [facility] 07-04-2023 13:43-0400 Diastolic blood pressure 74 mm[Hg] II Curtis Byrd Work Phone: [facility] 07-04-2023 13:43-0400 Heart rate 87 /min II Curtis Byrd Work Phone: [facility] 07-04-2023 13:43-0400 Respiratory rate 16 /min II Curtis Byrd Work Phone: [facility] 07-04-2023 13:43-0400 SaO2% (BldA) [Mass fraction] 100 % II Curtis Byrd Work Phone: [facility] 07-04-2023 13:43-0400 Systolic blood pressure 143 mm[Hg] II Curtis Byrd Work Phone: [facility] 07-04-2023 11:17-0400 Body height 167.64 cm II Curtis Byrd Work Phone: [facility] 07-04-2023 11:17-0400 Body weight 80.28 kg II Curtis Byrd Work Phone: [facility] 06-06-2023 10:26-0400 Body height 168.91 cm II Curtis Byrd Work Phone: [facility] 06-06-2023 10:26-0400 Body mass index (BMI) [Ratio] 28.1 kg/m2 II Curtis Byrd Work Phone: [facility] 06-06-2023 10:26-0400 Body temperature 96.8 [degF] II Curtis Byrd Work Phone: [facility] 06-06-2023 10:26-0400 Body weight 80.28 kg II Curtis Byrd Work Phone: [facility] 06-06-2023 10:26-0400 Diastolic blood pressure 60 mm[Hg] II Curtis Byrd Work Phone: [facility] 06-06-2023 10:26-0400 Heart rate 93 /min II Curtis Byrd Work Phone: [facility] 06-06-2023 10:26-0400 SaO2% (BldA) [Mass fraction] 97 % II Curtis Byrd Work Phone: [facility] 06-06-2023 10:26-0400 Systolic blood pressure 92 mm[Hg] II Curtis Byrd Work Phone: [facility] 04-30-2023 09:12-0500 Body height 167.6 cm Ozzie Quintero MD Work Phone: [facility] 04-30-2023 09:12-0500 Body mass index (BMI) [Ratio] 28.89 kg/m2 Ozzie Quintero MD Work Phone: [facility] 04-30-2023 09:12-0500 Body weight 81.19 kg Ozzie Quintero MD Work Phone: [facility] 04-30-2023 09:12-0500 Heart rate 86 /min Ozzie Quintero MD Work Phone: [facility] 04-04-2023 14:20-0500 Diastolic blood pressure 73 mm[Hg] II Curtis Byrd Work Phone: [facility] 04-04-2023 14:20-0500 Heart rate 94 /min II Curtis Byrd Work Phone: [facility] 04-04-2023 14:20-0500 Respiratory rate 16 /min II Curtis Byrd Work Phone: [facility] 04-04-2023 14:20-0500 SaO2% (BldA) [Mass fraction] 95 % II Curtis Byrd Work Phone: [facility] 04-04-2023 14:20-0500 Systolic blood pressure 114 mm[Hg] II Curtis Byrd Work Phone: [facility] 04-04-2023 12:43-0500 Body height 168.91 cm II Curtis Byrd Work Phone: [facility] 04-04-2023 12:43-0500 Body weight 79.83 kg II Curtis Byrd Work Phone: [facility] 03-28-2023 09:45-0500 Body height 167.64 cm Dillon Wilson Other [facility] 03-28-2023 09:45-0500 Body mass index (BMI) [Ratio] 28.24 kg/m2 Dillon Wilson Other [facility] [employer] Other 03-28-2023 09:45-0500 Body temperature 97.8 [degF] Dillon Wilson Other [employer] Other 03-28-2023 09:45-0500 Body weight 79.38 kg Dillon Wilson Other [employer] Other 03-28-2023 09:45-0500 Body weight 79.37 kg II Curtis Byrd Work Phone: [facility] 03-28-2023 09:45-0500 Diastolic blood pressure 68 mm[Hg] Dillon Wilson Other [facility] 03-28-2023 09:45-0500 SaO2% (BldA) [Mass fraction] 96 % Dillon Wilson Other [employer] Other 03-28-2023 09:45-0500 Systolic blood pressure 118 mm[Hg] Dillon Wilson Other [facility] 03-19-2023 16:16-0500 Diastolic blood pressure 52 mm[Hg] II Curtis Byrd Work Phone: [facility] 03-19-2023 16:16-0500 Heart rate 96 /min II Curtis Byrd Work Phone: [facility] 03-19-2023 16:16-0500 Respiratory rate 16 /min II Curtis Byrd Work Phone: [facility] 03-19-2023 16:16-0500 SaO2% (BldA) [Mass fraction] 100 % II Curtis Byrd Work Phone: [facility] 03-19-2023 16:16-0500 Systolic blood pressure 106 mm[Hg] II Curtis Byrd Work Phone: [facility] 03-19-2023 12:55-0500 Body height 167.64 cm II Curtis Byrd Work Phone: [facility] 03-19-2023 12:55-0500 Body weight 79.37 kg II Curtis Byrd Work Phone: [facility] 03-14-2023 12:00-0500 Body height 167.64 cm Dillon Wilson Other [facility] 03-14-2023 12:00-0500 Body mass index (BMI) [Ratio] 28.24 kg/m2 Dillon Wilson Other [facility] [employer] Other 03-14-2023 12:00-0500 Body temperature 97.8 [degF] Dillon Wilson Other [facility] [employer] Other 03-14-2023 12:00-0500 Body weight 79.38 kg Dillon Wilson Other [employer] Other 03-14-2023 12:00-0500 Body weight 79.37 kg II Curtis Byrd Work Phone: [facility] 03-14-2023 12:00-0500 Diastolic blood pressure 62 mm[Hg] Dillon Wilson Other [facility] 03-14-2023 12:00-0500 SaO2% (BldA) [Mass fraction] 98 % Dillon Wilson Other [employer] Other 03-14-2023 12:00-0500 Systolic blood pressure 104 mm[Hg] Dillon Wilson Other [facility] 11-22-2022 10:30-0400 Body height 167.64 cm Dillon Wilson Other [employer] Other 11-22-2022 10:30-0400 Body mass index (BMI) [Ratio] 28.24 kg/m2 Dillon Wilson Other [employer] Other 11-22-2022 10:30-0400 Body temperature 97.8 [degF] Dillon Wilson Other [employer] Other 11-22-2022 10:30-0400 Body weight 79.38 kg Dillon Wilson Other [employer] Other 11-22-2022 10:30-0400 Diastolic blood pressure 67 mm[Hg] Dillon Wilson Other [employer] Other 11-22-2022 10:30-0400 SaO2% (BldA) [Mass fraction] 98 % Dillon Wilson Other [employer] Other 11-22-2022 10:30-0400 Systolic blood pressure 102 mm[Hg] Dillon Wilson Other [employer] Other 11-08-2022 15:08-0400 Diastolic blood pressure 77 mm[Hg] II Curtis Byrd Work Phone: [facility] 11-08-2022 15:08-0400 Heart rate 98 /min II Curtis Byrd Work Phone: [facility] 11-08-2022 15:08-0400 Respiratory rate 16 /min II Curtis Byrd Work Phone: [facility] 11-08-2022 15:08-0400 SaO2% (BldA) [Mass fraction] 98 % II Curtis Byrd Work Phone: [facility] 11-08-2022 15:08-0400 Systolic blood pressure 129 mm[Hg] II Curtis Byrd Work Phone: [facility] 11-08-2022 13:39-0400 Body height 168.91 cm II Curtis Byrd Work Phone: [facility] 11-08-2022 13:39-0400 Body weight 79.37 kg II Curtis Byrd Work Phone: [facility] 10-04-2022 09:45-0400 Body height 167.64 cm Corinne Corrigan Other [employer] Other 10-04-2022 09:45-0400 Body mass index (BMI) [Ratio] 28.24 kg/m2 Corinne Corrigan Other [employer] Other 10-04-2022 09:45-0400 Body temperature 97.8 [degF] Corinne Corrigan Other [employer] Other 10-04-2022 09:45-0400 Body weight 79.38 kg Corinne Corrigan Other [employer] Other 10-04-2022 09:45-0400 Diastolic blood pressure 62 mm[Hg] Corinne Corrigan Other [employer] Other 10-04-2022 09:45-0400 SaO2% (BldA) [Mass fraction] 97 % Corinne Corrigan Other [employer] Other 10-04-2022 09:45-0400 Systolic blood pressure 106 mm[Hg] Corinne Corrigan Other [employer] Other 08-20-2022 08:29-0400 Body height 167.64 cm Curtis Casarez Fondu Work Phone: [facility] [employer] DO Work Phone: 08-20-2022 08:29-0400 Body mass index (BMI) [Ratio] 29.54 kg/m2 Curtis Byrd Work Phone: [facility] [employer] DO Work Phone: 08-20-2022 08:29-0400 Body surface area Derived from formula 1.93 m2 Curtis Casarez Byrd Work Phone: [facility] [employer] DO Work Phone: 08-20-2022 08:29-0400 Body weight 83.01 kg Curtis Byrd Work Phone: [facility] DO Work Phone: 08-20-2022 08:29-0400 Diastolic blood pressure 72 mm[Hg] Curtis Byrd Work Phone: [facility] [employer] [employer] DO Work Phone: 08-20-2022 08:29-0400 Heart rate 80 /min Curtis Byrd Work Phone: [facility] 250 DO Work Phone: 08-20-2022 08:29-0400 Systolic blood pressure 120 mm[Hg] Curtis Byrd Work Phone: [facility] DO Work Phone: 07-31-2022 12:40-0400 Diastolic blood pressure 62 mm[Hg] II Curtis Byrd Work Phone: [facility] 07-31-2022 12:40-0400 Heart rate 86 /min II Curtis Byrd Work Phone: [facility] 07-31-2022 12:40-0400 Respiratory rate 16 /min II Curtis Byrd Work Phone: [facility] 07-31-2022 12:40-0400 SaO2% (BldA) [Mass fraction] 95 % II Curtis Byrd Work Phone: [facility] 07-31-2022 12:40-0400 Systolic blood pressure 128 mm[Hg] II Curtis Byrd Work Phone: [facility] 07-31-2022 09:56-0400 Inhaled oxygen flow rate 3 L/min II Curtis Byrd Work Phone: [facility] 07-31-2022 07:12-0400 Body height 167.64 cm II Curtis Byrd Work Phone: [facility] 07-31-2022 07:12-0400 Body weight 80.73 kg II Curtis Byrd Work Phone: [facility] 07-26-2022 09:00-0400 Body height 167.64 cm Dillon Wilson Other [facility] [employer] Other 07-26-2022 09:00-0400 Body mass index (BMI) [Ratio] 28.24 kg/m2 Dillon Wilson Other [employer] Other 07-26-2022 09:00-0400 Body temperature 97.3 [degF] Dillon Romanoami Other [employer] Other 07-26-2022 09:00-0400 Body weight 79.38 kg Dillon Romanoami Other [employer] Other 07-26-2022 09:00-0400 Diastolic blood pressure 68 mm[Hg] Dillon Romanoami Other [employer] Other 07-26-2022 09:00-0400 SaO2% (BldA) [Mass fraction] 97 % Dillon Romanoami Other [employer] Other 07-26-2022 09:00-0400 Systolic blood pressure 114 mm[Hg] Dillon Romanoami Other [employer] Other 06-26-2022 13:58-0400 Diastolic blood pressure 83 mm[Hg] II Curtis Byrd Work Phone: [facility] 06-26-2022 13:58-0400 Heart rate 99 /min II Curtis Byrd Work Phone: [facility] 06-26-2022 13:58-0400 Respiratory rate 16 /min II Curtis Byrd Work Phone: [facility] 06-26-2022 13:58-0400 SaO2% (BldA) [Mass fraction] 94 % II Curtis Byrd Work Phone: [facility] 06-26-2022 13:58-0400 Systolic blood pressure 114 mm[Hg] II Curtis Byrd Work Phone: [facility] 06-26-2022 13:22-0400 Body height 167.64 cm II Curtis Byrd Work Phone: [facility] 06-26-2022 13:22-0400 Body weight 79.37 kg II Curtis Byrd Work Phone: [facility] 06-19-2022 14:00-0400 Body height 167.64 cm Master Mauro Other [employer] Other 06-19-2022 14:00-0400 Body mass index (BMI) [Ratio] 28.24 kg/m2 Master Mauro Other [employer] Other 06-19-2022 14:00-0400 Body weight 79.38 kg Master Mauro Other [employer] Other 03-29-2022 12:45-0500 Body height 167.64 cm Dillon Wilson Other [employer] Other 03-29-2022 12:45-0500 Body mass index (BMI) [Ratio] 28.24 kg/m2 Dillon Wilson Other [employer] Other 03-29-2022 12:45-0500 Body temperature 97.8 [degF] Dillon Wilson Other [employer] Other 03-29-2022 12:45-0500 Body weight 79.38 kg Dillon Wilson Other [employer] Other 03-29-2022 12:45-0500 Diastolic blood pressure 72 mm[Hg] Dillon Wilson Other [employer] Other 03-29-2022 12:45-0500 SaO2% (BldA) [Mass fraction] 96 % Dillon Wilson Other [employer] Other 03-29-2022 12:45-0500 Systolic blood pressure 116 mm[Hg] Dillon Wilson Other [facility] [employer] Other 03-20-2022 11:35-0500 Body height 167.64 cm Ozzie Quintero MD Work Phone: [facility] DO Work Phone: 03-20-2022 11:35-0500 Body mass index (BMI) [Ratio] 28.89 kg/m2 Ozzie Quintero MD Work Phone: [facility] 250 DO Work Phone: 03-20-2022 11:35-0500 Body surface area Derived from formula 1.91 m2 Ozzie Quintero MD Work Phone: [facility] DO Work Phone: 03-20-2022 11:35-0500 Body weight 81.19 kg Ozzie Quintero MD Work Phone: [facility] 250 DO Work Phone: 03-20-2022 11:35-0500 Diastolic blood pressure 72 mm[Hg] Ozzie Quintero MD Work Phone: [facility] 250 DO Work Phone: 03-20-2022 11:35-0500 Heart rate 62 /min Ozzie Quintero MD Work Phone: [facility] 250 DO Work Phone: 03-20-2022 11:35-0500 Systolic blood pressure 128 mm[Hg] Ozzie Quintero MD Work Phone: [facility] 250 DO Work Phone: 03-07-2022 18:10-0500 Respiratory rate 16 /min EDUARDO Byrd Work Phone: [facility] 03-07-2022 18:10-0500 SaO2% (BldA) [Mass fraction] 100 % II Curtis Byrd Work Phone: [facility] 03-07-2022 17:51-0500 Body temperature 97.7 [degF] II Curtis Byrd Work Phone: [facility] 03-07-2022 17:51-0500 Diastolic blood pressure 60 mm[Hg] II Curtis Byrd Work Phone: [facility] 03-07-2022 17:51-0500 Heart rate 100 /min II Curtis Byrd Work Phone: [facility] 03-07-2022 17:51-0500 Systolic blood pressure 105 mm[Hg] II Curtis Byrd Work Phone: [facility] 03-06-2022 22:51-0500 Body height 167.64 cm II Curtis Byrd Work Phone: [facility] 03-06-2022 22:51-0500 Body weight 79.38 kg II Curtis Byrd Work Phone: [facility] 02-15-2022 11:45-0500 Body height 167.64 cm Corinne Corrigan Other [employer] Other 02-15-2022 11:45-0500 Body mass index (BMI) [Ratio] 27.76 kg/m2 Corinne Corrigan Other [employer] Other 02-15-2022 11:45-0500 Body temperature 97.8 [degF] Corinne Corrigan Other [employer] Other 02-15-2022 11:45-0500 Body weight 78.02 kg Corinne Corrigan Other [employer] Other 02-15-2022 11:45-0500 Diastolic blood pressure 50 mm[Hg] Corinne Corrigan Other [employer] Other 02-15-2022 11:45-0500 SaO2% (BldA) [Mass fraction] 91 % Corinne Corrigan Other [facility] Other 02-15-2022 11:45-0500 Systolic blood pressure 98 mm[Hg] Corinne Corrigan Other [facility] Other 01-25-2022 11:15-0500 Body height 167.64 cm Dillon Wilson Other [facility] Other 01-25-2022 11:15-0500 Body mass index (BMI) [Ratio] 27.76 kg/m2 Dillon Wilson Other [facility] Other 01-25-2022 11:15-0500 Body temperature 98.7 [degF] Dillon Wilson Other [facility] Other 01-25-2022 11:15-0500 Body weight 78.02 kg Dillon Wilson Other [facility] Other 01-25-2022 11:15-0500 Diastolic blood pressure 68 mm[Hg] Dillon Wilson Other [facility] Other 01-25-2022 11:15-0500 SaO2% (BldA) [Mass fraction] 99 % Dillon Wilson Other [facility] Other 01-25-2022 11:15-0500 Systolic blood pressure 110 mm[Hg] Dillon Wilson Other [facility] Other 09-21-2021 15:38-0400 Diastolic blood pressure 64 mm[Hg] II Curtis Byrd Work Phone: [facility] 09-21-2021 15:38-0400 Heart rate 95 /min II Curtis Byrd Work Phone: [facility] 09-21-2021 15:38-0400 Respiratory rate 17 /min II Curtis Byrd Work Phone: [facility] 09-21-2021 15:38-0400 SaO2% (BldA) [Mass fraction] 98 % II Curtis Byrd Work Phone: [facility] 09-21-2021 15:38-0400 Systolic blood pressure 138 mm[Hg] II Curtis Byrd Work Phone: [facility] 09-21-2021 12:49-0400 Body height 168.91 cm II Curtis Byrd Work Phone: [facility] 09-21-2021 12:49-0400 Body weight 61.23 kg II Curtis Byrd Work Phone: [facility] 08-30-2021 09:30-0400 Body height 167.64 cm Corinne Corrigan Other [facility] Other 08-30-2021 09:30-0400 Body mass index (BMI) [Ratio] 27.76 kg/m2 Corinne Corrigan Other [facility] Other 08-30-2021 09:30-0400 Body temperature 96.1 [degF] Corinne Corrigan Other [facility] Other 08-30-2021 09:30-0400 Body weight 78.02 kg Corinne Corrigan Other [facility] Other 08-30-2021 09:30-0400 Diastolic blood pressure 60 mm[Hg] Corinne Tabareso Other [facility] Other 08-30-2021 09:30-0400 SaO2% (BldA) [Mass fraction] 97 % Corinne Corrigan Other [facility] Other 08-30-2021 09:30-0400 Systolic blood pressure 92 mm[Hg] Corinne Tabareso Other [facility] Other 08-24-2021 13:30-0400 Body height 167.64 cm Corinne Corrigan Other [facility] Other 08-24-2021 13:30-0400 Body mass index (BMI) [Ratio] 27.76 kg/m2 Corinne Corrigan Other [facility] Other 08-24-2021 13:30-0400 Body temperature 96.4 [degF] Corinne Corrigan Other [facility] Other 08-24-2021 13:30-0400 Body weight 78.02 kg Corinne Corrigan Other [facility] Other 08-24-2021 13:30-0400 Diastolic blood pressure 64 mm[Hg] Corinne Tabareso Other [facility] Other 08-24-2021 13:30-0400 SaO2% (BldA) [Mass fraction] 96 % Corinne Tabareso Other [facility] Other 08-24-2021 13:30-0400 Systolic blood pressure 102 mm[Hg] Corinne Novakarchieo Other [facility] Other 07-18-2021 12:23-0400 Body height 168.91 cm Ozzie Quintero MD Work Phone: [facility] DO Work Phone: 07-18-2021 12:23-0400 Body mass index (BMI) [Ratio] 28.3 kg/m2 Ozzie Quintero MD Work Phone: [facility] 250 DO Work Phone: 07-18-2021 12:23-0400 Body surface area Derived from formula 1.91 m2 Ozzie Quintero MD Work Phone: [facility] 250 DO Work Phone: 07-18-2021 12:23-0400 Body weight 80.74 kg Ozzie Quintero MD Work Phone: [facility] 250 DO Work Phone: 07-18-2021 12:23-0400 Diastolic blood pressure 74 mm[Hg] Ozzie Quintero MD Work Phone: [facility] 250 DO Work Phone: 07-18-2021 12:23-0400 Heart rate 88 /min Ozzie Quintero MD Work Phone: [facility] DO Work Phone: 07-18-2021 12:23-0400 Systolic blood pressure 114 mm[Hg] Ozzie Quintero MD Work Phone: [facility] 250 DO Work Phone: 06-22-2021 11:45-0400 Body height 167.64 cm Corinne Corrigan Other [facility] [employer] Other 06-22-2021 11:45-0400 Body mass index (BMI) [Ratio] 27.76 kg/m2 Corinne Corrigan Other [facility] Other 06-22-2021 11:45-0400 Body weight 78.02 kg Corinne Corrigan Other [facility] Other 06-22-2021 11:45-0400 Diastolic blood pressure 52 mm[Hg] Corinne Corrigan Other [facility] Other 06-22-2021 11:45-0400 Respiratory rate 16 /min Corinne Corrigan Other [facility] Other 06-22-2021 11:45-0400 SaO2% (BldA) [Mass fraction] 98 % Corinne Corrigan Other [facility] Other 06-22-2021 11:45-0400 Systolic blood pressure 100 mm[Hg] Corinne Corrigan Other [facility] Other 06-15-2021 14:00-0400 Body height 167.64 cm Master Costa Other [facility] Other 06-15-2021 14:00-0400 Body mass index (BMI) [Ratio] 27.6 kg/m2 Master Costa Other [facility] Other 06-15-2021 14:00-0400 Body weight 77.57 kg Master Costa Other [facility] Other 04-04-2021 11:18-0500 Body height 168.91 cm Ozzie Quintero MD Work Phone: [place] [address] DO Work Phone: 04-04-2021 11:18-0500 Body mass index (BMI) [Ratio] 27.5 kg/m2 Ozzie Quintero MD Work Phone: [facility] 250 DO Work Phone: 04-04-2021 11:18-0500 Body surface area Derived from formula 1.89 m2 Ozzie Quintero MD Work Phone: [facility] 250 DO Work Phone: 04-04-2021 11:18-0500 Body weight 78.47 kg Ozzie Quintero MD Work Phone: [facility] 250 DO Work Phone: 04-04-2021 11:18-0500 Diastolic blood pressure 52 mm[Hg] Ozzie Quintero MD Work Phone: [facility] 250 DO Work Phone: 04-04-2021 11:18-0500 Heart rate 86 /min Ozzie Quintero MD Work Phone: [facility] 250 DO Work Phone: 04-04-2021 11:18-0500 Systolic blood pressure 125 mm[Hg] Ozzie Quintero MD Work Phone: [facility] 250 DO Work Phone: 03-16-2021 12:30-0500 Body height 167.64 cm Dillon Wilson Other [facility] Other 03-16-2021 12:30-0500 Body mass index (BMI) [Ratio] 27.11 kg/m2 Dillon Wilson Other [facility] Other 03-16-2021 12:30-0500 Body temperature 97.9 [degF] Dillon Wilson Other [facility] Other 03-16-2021 12:30-0500 Body weight 76.2 kg Dillon Romanoami Other [facility] Other 03-16-2021 12:30-0500 Diastolic blood pressure 60 mm[Hg] Dillon Steve Other [facility] Other 03-16-2021 12:30-0500 SaO2% (BldA) [Mass fraction] 99 % Dillon Steve Other [facility] Other 03-16-2021 12:30-0500 Systolic blood pressure 110 mm[Hg] Dillon Steve Other [facility] Other 02-09-2021 12:00-0500 Body height 167.64 cm Dillon Wilson Other [facility] Other 02-09-2021 12:00-0500 Body mass index (BMI) [Ratio] 27.11 kg/m2 Dillon Steve Other [facility] Other 02-09-2021 12:00-0500 Body temperature 98.1 [degF] Dillon Steve Other [facility] Other 02-09-2021 12:00-0500 Body weight 76.2 kg Dillon Steve Other [facility] Other 02-09-2021 12:00-0500 SaO2% (BldA) [Mass fraction] 97 % Dillon Wilson Other [facility] Other 01-05-2021 14:24-0500 Body height 168.91 cm Ozzie Quintero MD Work Phone: [facility] DO Work Phone: 01-05-2021 14:24-0500 Body mass index (BMI) [Ratio] 26.87 kg/m2 Ozzie Quintero MD Work Phone: [facility] 250 DO Work Phone: 01-05-2021 14:24-0500 Body surface area Derived from formula 1.87 m2 Ozzie Quintero MD Work Phone: [facility] 250 DO Work Phone: 01-05-2021 14:24-0500 Body weight 76.66 kg Ozzie Quintero MD Work Phone: [facility] DO Work Phone: 01-05-2021 14:24-0500 Diastolic blood pressure 68 mm[Hg] Ozzie Quintero MD Work Phone: [facility] 250 DO Work Phone: 01-05-2021 14:24-0500 Heart rate 80 /min Ozzie Quintero MD Work Phone: [facility] DO Work Phone: 01-05-2021 14:24-0500 Systolic blood pressure 110 mm[Hg] Ozzie Quintero MD Work Phone: [facility] DO Work Phone: 11-24-2020 12:45-0400 Body height 167.64 cm Dillon Wilson Other [facility] Other 11-24-2020 12:45-0400 Body mass index (BMI) [Ratio] 26.63 kg/m2 Dillon Wilson Other [facility] Other 11-24-2020 12:45-0400 Body weight 74.84 kg Dillon Wilson Other [facility] Other 11-24-2020 12:45-0400 Diastolic blood pressure 62 mm[Hg] Dillon Wilson Other [facility] Other 11-24-2020 12:45-0400 Systolic blood pressure 118 mm[Hg] Dillon Wilson Other [facility] Other Encounters Encounter Date Encounter Type Care Provider Facility Start: 01-06-2024 Non-patient / Non-visit Curtis Byrd II Work Phone: [facility] Work Phone: Start: 01-05-2024 Non-patient / Non-visit Curtis Byrd II Work Phone: [facility] [place] Work Phone: Start: 01-05-2024 End: 01-07-2024 Evaluation and management of inpatient [facility] Facility:[facility] Start: 12-19-2023 Non-patient / Non-visit Curtis Byrd II Work Phone: [facility] Work Phone: Start: 12-19-2023 End: 12-19-2023 Admission to same day surgery center Curtis Byrd II Work Phone: [facility]-Interventional Radiology Work Phone: Start: 12-19-2023 End: 12-19-2023 ambulatory Curtis Byrd Facility:[facility] Start: 12-12-2023 End: 12-12-2023 Patient encounter procedure II Curtis Byrd Work Phone: [facility] Work Phone: Start: 12-12-2023 End: 12-12-2023 ambulatory II Curtis Byrd Work Phone: [facility] Work Phone: Start: 11-20-2023 Non-patient / Non-visit II Curtis Byrd Work Phone[facility] [place] Work Phone: Start: 10-26-2023 Non-patient / Non-visit II Curtis Byrd Work Phone: [facility] Cardiology Work Phone: Start: 10-25-2023 Non-patient / Non-visit II Curtis Byrd Work Phone: [facility] Gastroenterology Work Phone: Start: 10-24-2023 End: 10-30-2023 Evaluation and management of inpatient II Curtis Byrd Work Phone: [facility] Work Phone: Start: 10-24-2023 End: 10-24-2023 Emergency department patient visit II Curtis Byrd Work Phone: [facility]-Emergency Room Work Phone: Start: 10-21-2023 Non-patient / Non-visit II Curtis Byrd Work Phone: [facility] Work Phone: Start: 09-26-2023 End: 09-26-2023 ambulatory II Curtis Byrd Work Phone: [facility] Work Phone: Start: 09-26-2023 End: 09-26-2023 Patient encounter procedure II Curtis Byrd Work Phone: [facility] Vascular Surgery Work Phone: Start: 09-18-2023 Non-patient / Non-visit II Curtis Carson Work Phone: [facility] [place] Work Phone: Start: 09-12-2023 End: 09-12-2023 ambulatory CURTIS BYRD Not Available Start: 08-19-2023 Non-patient / Non-visit II Curtis Byrd Work Phone: [facility] Work Phone: Start: 07-22-2023 Non-patient / Non-visit II Curtis Byrd Work Phone: [facility] Work Phone: Start: 07-04-2023 Non-patient / Non-visit II Curtis Byrd Work Phone: [facility] Vascular Surgery Work Phone: Start: 07-04-2023 End: 07-04-2023 Admission to same day surgery center II Curtis Byrd Work Phone: [facility]-Interventional Radiology Work Phone: Start: 07-04-2023 End: 07-04-2023 ambulatory II Curtis Byrd Work Phone: [facility] Work Phone: Start: 06-06-2023 End: 06-06-2023 Patient encounter procedure II Curtis Byrd Work Phone: [facility] Vascular Surgery Work Phone: Start: 06-06-2023 End: 06-06-2023 ambulatory II Curtis Byrd Work Phone: [facility] Work Phone: Start: 05-19-2023 Non-patient / Non-visit II Curtis Byrd Work Phone: [facility] Work Phone: Start: 04-30-2023 End: 04-30-2023 ambulatory OZZIE QUINTERO [facility] Ambulatory Start: 04-30-2023 End: 04-30-2023 Office outpatient visit 25 minutes Ozzie Quintero MD Work Phone: [facility] Comment on above: 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) (Primary Dx); Mixed hyperlipidemia; Persistent atrial fibrillation (CMS/HCC); Neurogenic orthostatic hypotension (CMS/HCC); Former smoker Start: 04-20-2023 Non-patient / Non-visit II Curtis Byrd Work Phone: [facility] Work Phone: Start: 04-04-2023 Non-patient / Non-visit II Curtis Byrd Work Phone: [facility] Work Phone: Start: 04-04-2023 End: 04-04-2023 ambulatory Curtis Byrd Facility:[facility] Start: 03-28-2023 Office outpatient visit 15 minutes Dillon Wilson [facility] Start: 03-28-2023 End: 03-28-2023 Patient encounter procedure II Curtis Byrd Work Phone: [facility] Start: 03-28-2023 End: 03-28-2023 ambulatory II Curtis Byrd Work Phone: [facility] [employer] Other Start: 03-28-2023 End: 03-28-2023 Patient encounter procedure II Curtis Byrd Work Phone: [facility]- Start: 03-19-2023 Non-patient / Non-visit II Curtis Byrd Work Phone: [facility] Vascular Surgery Work Phone: Start: 03-19-2023 End: 03-19-2023 ambulatory Curtis Byrd Facility:[facility] Start: 03-14-2023 Office outpatient visit 15 minutes Dillon Wilson [facility] Vascular Surgery Start: 03-14-2023 End: 03-14-2023 Patient encounter procedure II Curtis Byrd Work Phone: [facility] Start: 03-14-2023 End: 03-14-2023 ambulatory II Curtis Byrd Work Phone: [facility] Work Phone: Start: 03-14-2023 End: 03-14-2023 Patient encounter procedure II Curtis Byrd Work Phone: [facility]- Start: 02-28-2023 End: 02-28-2023 ambulatory CURTIS BYRD Not Available Start: 11-28-2022 End: 11-28-2022 ambulatory Dillon Wilson Other [employer] Other Start: 11-28-2022 Telephone encounter Dillon reyes [facility] Start: 11-22-2022 Office outpatient visit 25 minutes Dillon Wilson [facility] Start: 11-22-2022 End: 11-22-2022 ambulatory II Curtis Byrd Work Phone: [facility] [employer] Other Start: 11-22-2022 End: 11-22-2022 Patient encounter procedure II Curtis Byrd Work Phone: [facility] Start: 11-08-2022 End: 11-08-2022 Admission to same day surgery center II Curtis Byrd Work Phone: [facility]-Interventional Radiology Work Phone: Start: 11-08-2022 End: 11-08-2022 ambulatory II Curtis Byrd Work Phone: [facility] Work Phone: Start: 10-04-2022 End: 10-04-2022 ambulatory Corinne Novakarchiejuliet Other [facility] [employer] Other Start: 10-04-2022 Patient encounter procedure Corinne Novakarchiejuliet [facility] Start: 08-20-2022 Office outpatient visit 25 minutes Curtis Byrd Work Phone: -[facility] DO Work Phone: Start: 08-20-2022 ambulatory Ozzie Hauser y: Start: 07-31-2022 End: 07-31-2022 Admission to same day surgery center II Curtis Byrd Work Phone: [facility]-Interventional Radiology Work Phone: Start: 07-31-2022 End: 07-31-2022 ambulatory II Curtis Byrd Work Phone: [facility] Work Phone: Start: 07-26-2022 Office outpatient visit 25 minutes Dillon Wilson [facility] Vascular Surgery Start: 07-26-2022 End: 07-26-2022 ambulatory II Curtis Byrd Work Phone: [facility] Other Start: 07-26-2022 End: 07-26-2022 Patient encounter procedure II Curtis Byrd Work Phone: [facility] Start: 07-13-2022 End: 07-13-2022 ambulatory AZIZ BAKHOUS Facility:[facility] Start: 06-26-2022 End: 06-26-2022 Admission to same day surgery center II Curtis Byrd Work Phone: [facility]-Interventional Radiology Work Phone: Start: 06-25-2022 End: 07-25-2022 ambulatory SHAIKH Ivonne ATKINSON Facility:[facility] Start: 06-19-2022 End: 06-19-2022 ambulatory Master Costa Other [facility] Other Start: 06-19-2022 Office outpatient visit 15 minutes Master Costa [facility] Gastroenterology Start: 06-04-2022 End: 06-04-[address] RAYNA HOANG Facility:[facility] Start: 06-01-2022 End: 06-01-2022 ambulatory AZIZ BAKHOUS Facility:[facility] Start: 05-28-2022 End: 06-22-2022 ambulatory BRADEN H FAWWAD Facility:[facility] Start: 04-25-2022 End: 05-25-2022 ambulatory BRADEN H FAWWAD Facility:[facility] Start: 03-29-2022 End: 03-29-2022 ambulatory Dillon Wilson Other [facility] Other Start: 03-29-2022 Office outpatient visit 10 minutes Dillon Wilson [facility] Start: 03-28-2022 End: 04-25-2022 ambulatory SHAIKH Ivonne PATED Facility:[facility] Start: 03-20-2022 Office outpatient visit 25 minutes Ozzie Quintero MD Work Phone: -[facility] 250 DO Work Phone: Start: 03-20-2022 ambulatory Ozzie Quintero Facilit y: Start: 03-08-2022 Rx Renewal Ozzie ipnto MD Work Phone: [facility] 250 DO Work Phone: Start: 03-06-2022 End: 03-07-2022 Evaluation and management of inpatient II Curtis Byrd Work Phone: [facility] Work Phone: Start: 03-06-2022 End: 03-07-2022 observation encounter II Curtis Byrd Work Phone: [facility] Work Phone: Start: 02-26-2022 End: 03-28-2022 ambulatory SHAIKH Ivonne ATKINSON Facility:[facility] Start: 02-15-2022 End: 02-15-2022 ambulatory Corinne Corrigan Other [facility] Other Start: 02-15-2022 Patient encounter procedure Corinne Corrigan [facility] Start: 01-25-2022 Office outpatient visit 15 minutes Dillon Wilson [facility] Start: 01-25-2022 End: 01-25-2022 Patient encounter procedure II Curtis Byrd Work Phone: [facility] [place] Start: 01-25-2022 End: 02-25-2022 ambulatory II Curtis Byrd Work Phone: [facility] Other Start: 12-26-2021 End: 01-24-2022 ambulatory BRADEN H FAWWAD Facility:[facility] Start: 11-26-2021 End: 12-25-2021 ambulatory BRADEN H FAWWAD Facility:[facility] Start: 10-26-2021 End: 11-25-2021 ambulatory BRADEN H FAWWAD Facility:[facility] Start: 09-25-2021 End: 10-25-2021 ambulatory BRADEN H FAWWAD Facility:[facility] Start: 09-21-2021 End: 09-21-2021 Admission to same day surgery center II Curtis Byrd Work Phone: [facility]-Interventional Radiology Start: 08-30-2021 End: 08-30-2021 ambulatory Corinne Corrigan Other [facility] Other Start: 08-30-2021 End: 08-30-2021 Patient encounter procedure Corinne Corrigan [facility] Start: 08-29-2021 End: 08-29-2021 ambulatory YOSELYN WOODARD Facility:[facility] Start: 08-28-2021 End: 08-28-[address] HONG LINN . Facility:[facility] Start: 08-25-2021 End: 09-22-2021 ambulatory BRADEN H FAMinervaWAD Facility:[facility] Start: 08-24-2021 End: 08-24-2021 ambulatory Corinne Corrigan Other [facility] Other Start: 08-24-2021 Follow-up encounter Corinne Peterson Vascular Surgery Start: 07-18-2021 Office outpatient visit 25 minutes Ozzie Quintero MD Work Phone: [facility] 250 DO Work Phone: Start: 06-22-2021 End: 06-22-2021 ambulatory Corinne Corrigan Other [facility] Other Start: 06-22-2021 Office outpatient visit 40 minutes Corinne Corrigan [facility] Start: 06-20-2021 Telephone encounter Ozzie Veloz MD Work Phone: [facility] 250 DO Work Phone: Start: 06-15-2021 End: 06-15-2021 ambulatory Master Costa Other [facility] [employer] Other Start: 06-15-2021 Office outpatient visit 15 minutes Master Costa [facility] Gastroenterology Start: 06-06-2021 Telephone encounter Ozzie Veloz MD Work Phone: -[facility] 250 DO Work Phone: Start: 05-30-2021 Patient encounter procedure [id number] [facility] [id number] [employer] 1 Work Phone: [facility] 250 DO Work Phone: Start: 04-04-2021 Office outpatient visit 25 minutes Ozzie Quintero MD Work Phone: [facility] 250 DO Work Phone: Start: 04-04-2021 Patient encounter procedure Ozzie Quintero MD Work Phone: [facility] 250 DO Work Phone: Start: 03-16-2021 End: 03-16-2021 ambulatory Dillon Wilson Other [facility] [employer] Other Start: 03-16-2021 Office outpatient visit 15 minutes Dillon Wilson [facility] Vascular Surgery Start: 03-02-2021 Rx Renewal Ozzie pinto MD Work Phone: [facility] 250 DO Work Phone: Start: 02-16-2021 Patient encounter procedure Ozzie Quintero MD Work Phone: [facility] DO Work Phone: Start: 02-09-2021 End: 02-09-2021 ambulatory Dillon Wilson Other [facility] [employer] Other Start: 02-09-2021 Office outpatient visit 25 minutes Dillon Steve [facility] Vascular Surgery Start: 01-27-2021 Chart Update Ozzie pinto MD Work Phone: [facility] 250 DO Work Phone: Start: [facility] Ozzie Quintero, Status: Pen, Time: 2:00 PM Ozzie Quintero MD Work Phone: [facility] 250 DO Work Phone: Start: 01-25-2021 Chart Update Ozzie pinto MD Work Phone: [facility] DO Work Phone: Start: 01-05-2021 Office outpatient visit 25 minutes Ozzie Quintero MD Work Phone: [facility] DO Work Phone: Start: 01-05-2021 Patient encounter procedure Ozzie Quintero MD Work Phone: [facility] DO Work Phone: Start: 11-24-2020 Office outpatient visit 25 minutes Dillon Romanoami [facility] Vascular Surgery Procedures Date Procedure Procedure Detail Performing Clinician Start: 01-05-2024 Plain chest X-ray John Byrd II Work Phone: Start: 12-19-2023 IR Fistulogram/TLA S tent (Left) Curtis Byrd II Work Phone: Start: 10-25-2023 Blood culture for ba cteria, including anaerobic screen II Curtis Byrd Work Phone: Start: 10-25-2023 SARS-CoV-2, Influenz a & RSV (PCR) II Curtis Byrd Work Phone: Start: 10-25-2023 Viral nucleic acid assay Curtis Byrd II Work Phone: Start: 10-24-2023 Plain chest X-ray II Evangelist Byrd Work Phone: Start: 10-24-2023 CT of abdomen and pe lvis without contrast II Curtis Byrd Work Phone: Start: 10-24-2023 Blood culture for ba cteria, including anaerobic screen II Curtis Byrd Work Phone: Start: 10-24-2023 Screening for occult blood in feces Curtis Byrd II Work Phone: Start: 10-24-2023 Stool Occult Blood (OSCAR) II Curtis Byrd Work Phone: Start: 09-26-2023 Ankle brachial press ure index II Curtis Byrd Work Phone: Start: 09-26-2023 Duplex scan of lower limb arteries II Curtis Byrd Work Phone: Start: 07-04-2023 IR Fistulogram/TLA S tent (Left) II Curtis Byrd Work Phone: Start: 06-06-2023 Ultrasonography of arteriovenous fistula II Curtis Byrd Work Phone: Start: 03-28-2023 Ankle brachial press ure index [...] fistula II Curtis Byrd Work Phone: Start: 06-30-2020 Mammography Ozzie Veloz MD Work Phone: Start: 08-26-2019 Colonoscopy Ozzie Veloz MD Work Phone: Start: 07-30-2019 Echocardiography Appendectomy Ozzie [...] Treatment Date Care Activity Detail Author Start: 08-25-2029 Screening for malignant neoplasm of colon [facility] Start: 02-11-2024 End: 02-11-2024 Patient encounter procedure 02/11/2024 8:30 AM EST Office Visit [facility] [address] [place] [id number] Salinas Ortega MD [address] [place] [address] [place] [address] [facility] Start: 01-15-2024 [facility] Start: 01-14-2024 [facility] Start: 01-13-2024 [facility] Start: 01-12-2024 [facility] Start: 01-11-2024 [facility] Start: 01-10-2024 [facility] Start: 01-09-2024 [facility] Start: 01-08-2024 Comprehensive metabolic 1999 panel - Serum or Plasma [facility] Start: 01-08-2024 [facility] Start: 01-07-2024 Administration of prophylactic treatment [facility] Start: 01-07-2024 Radionuclide myocardial perfusion stress study NM andrew perf SPECT rest & str [facility] Start: 01-07-2024 SPECT Heart perfusion at rest and W stress and W radionuclide IV [facility] Start: 01-07-2024 Comprehensive metabolic 1999 panel - Serum or Plasma [facility] Start: 01-07-2024 End: 01-07-2024 [facility] Start: 01-06-2024 Comprehensive metabolic 1999 panel - Serum or Plasma [facility] Start: 01-06-2024 [facility] Start: 01-05-2024 Referral to palliative care physician [facility] Start: 01-05-2024 Referral to correctional counselor/case manager [facility] Start: 01-05-2024 End: 01-05-2024 [facility] Start: 01-05-2024 Hospital admission [facility] Start: 01-05-2024 Plain chest X-ray XR chest 1V portable [facility] Start: 01-05-2024 XR Chest Single view [facility] Start: 12-19-2023 [facility] Start: 12-12-2023 US AV fistula [facility] Start: 12-12-2023 Ankle brachial pressure index [facility] Start: 12-12-2023 US Lower extremity artery - left [facility] Start: 10-30-2023 [facility] Start: 10-28-2023 Administration of prophylactic treatment [facility] Start: 10-25-2023 Bacteria identified in Blood by Culture Blood Culture [facility] Start: 10-25-2023 End: 10-25-2023 [facility] Start: 10-25-2023 Referral to bottle gauger [facility] Start: 10-25-2023 Physical therapy procedure [facility] Start: 10-25-2023 Referral to correctional counselor/case manager [facility] Start: 10-25-2023 Referral to occupational therapist [facility] Start: 10-25-2023 End: 10-25-2023 [facility] Start: 10-24-2023 Hospital admission [facility] Start: 10-24-2023 XR Chest 2 Views [facility] Start: 10-24-2023 Computed tomography of abdomen and pelvis with contrast CT abdomen pelvis w [facility] Start: 10-24-2023 CT Abdomen and Pelvis WO contrast [facility] Start: 10-24-2023 CT of abdomen and pelvis without contrast CT abdomen pelvis wo [facility] Start: 10-24-2023 End: 10-24-2023 Plain chest X-ray XR chest 2V* [facility] Start: 10-24-2023 Hepatic function panel [facility] Start: 10-24-2023 [facility] Start: 10-24-2023 Bacteria identified in Blood by Culture [facility] Start: 10-24-2023 Performance of Urinary Filtration, Intermittent, Less than 6 Hours Per Day Performance of Urinary Filtration, Intermittent, Less than 6 Hours Per Day [facility] Start: 09-26-2023 Ankle brachial pressure index [facility] Start: 09-26-2023 Duplex scan of lower limb arteries US arterial duplex LE LT [facility] Start: 09-26-2023 US Lower extremity artery - left [facility] Start: 07-04-2023 [facility] Start: 06-06-2023 Ultrasonography of arteriovenous fistula US AV Fistula [facility] Start: 06-06-2023 US AV fistula [facility] Start: 04-30-2023 FUV, Provider: Ozzie Quintero, Status: Pen, Time: 9:20 AM FUV, Provider: Ozzie Quintero, Status: Pen, [facility]: 9:20 [facility] Work Phone: Start: 04-04-2023 [facility] Start: 03-19-2023 [facility] Start: 03-14-2023 Ultrasonography of arteriovenous fistula US AV Fistula [facility] Start: 03-14-2023 US AV fistula [facility] Start: 11-15-2022 Screening for osteoporosis Bone Density Scan [facility] Start: 11-08-2022 [facility] Start: 10-26-2022 COVID-19 Vaccine ( season) COVID-19 Vaccine ( season) [facility] Start: 10-26-2022 Influenza vaccination Influenza Vaccine (#1) [facility] Start: 07-31-2022 [facility] Start: 06-26-2022 [facility] Start: 03-20-2022 FUV, Provider: Ozzie Quintero, Status: Pen, Time: 11:20 AM FUV, Provider: Ozzie Quintero, Status: Pen, Time: 11:20 AM [facility] 250 DO Work Phone: Start: 03-07-2022 [facility] Start: 10-26-2021 Ankle brachial pressure index US ankle/arm indices [facility] Start: 10-26-2021 Patient encounter procedure Registered Clinical [facility] [place] Start: 09-21-2021 [facility] Work Phone: Start: 07-18-2021 FUV, Provider: Ozzie Quintero, Status: Pen, Time: 11:30 AM FUV, Provider: Ozzie uQintero, Status: Pen, Time: 11:30 AM [facility] 250 DO Work Phone: Start: 06-30-2021 Screening for malignant neoplasm of breast Mammogram [facility] Start: 05-30-2021 HOLTER MON, Provider: [employer] 1,[id number], Status: Pen, Time: 2:30 PM HOLTER MON, Provider: [employer] 1,[id number], Status: Pen, Time: 2:30 PM [facility] 250 DO Work Phone: Start: 04-04-2021 FUV, Provider: Ozzie Quintero, Status: Pen, Time: 10:50 AM FUV, Provider: Ozzie Quintero, Status: Pen, Time: 10:50 AM [facility] 250 DO Work Phone: Start: 01-26-2021 SURGNONUH, Provider: Ozzie Quintero, Status: Pen, Time: 2:00 PM SURGNONUH, Provider: Ozzie Quintero, Status: Pen, Time: 2:00 PM [facility] DO Work Phone: Start: 09-07-2020 Echocardiography Echocardiogram [facility] Start: 2002 Zoster Vaccines (1 of 2) Zoster Vaccines (1 of 2) [facility] Start: 1974 DTaP/Tdap/Td Vaccines (1 - Tdap) DTaP/Tdap/Td Vaccines (1 - Tdap) [facility] Start: 1970 Diabetes mellitus screening Diabetes Screening [facility] Start: 1970 Hepatitis C screening Hepatitis C Screening [facility] Start: 1952 Creatinine measurement Creatinine Level [facility] Start: 1952 Lipid panel Lipid Panel [facility] Start: 1952 Medicare Annual Wellness Visit Medicare Annual Wellness Visit (AWV) [facility] Start: 1952 Potassium measurement Potassium Level [facility] Start: 1952 Screening for malignant neoplasm of colon [facility] Albumin/Globulin ratio [facility] Anion gap measurement [facility] Anion gap measurement [facility] Ankle brachial press ure index [facility] aPTT in Platelet poo r plasma by Coagulation assay [facility] Basophils [#/volume] in Blood by Automated count [facility] Basophils [#/volume] in Blood by Automated count [facility] Basophils/100 leukoc ytes in Blood by Automated count [facility] Basophils/100 leukoc ytes in Blood by Automated count [facility] Bilirubin.indirect [Mass/volume] in Serum or Plasma [facility] Eosinophils/100 leuk ocytes in Blood by Automated count [facility] Eosinophils/100 leuk ocytes in Blood by Automated count [facility] Erythrocyte distribu tion width [Ratio] by Automated count [facility] Erythrocyte distribu tion width [Ratio] by Automated count [facility] Erythrocytes [#/volu me] in Blood [facility] Erythrocytes [#/volu me] in Blood [facility] Globulin [Mass/volum e] in Serum [facility] Hematocrit [Volume F raction] of Blood [facility] Hematocrit [Volume F raction] of Blood [facility] Hemoglobin [Mass/vol ume] in Blood [facility] Hemoglobin [Mass/vol ume] in Blood [facility] INR in Platelet poor plasma by Coagulation assay [facility] INR in Platelet poor plasma by Coagulation assay [facility] Leukocytes [#/volume ] corrected for nucleated erythrocytes in Blood by Automated coun [facility] Leukocytes [#/volume ] corrected for nucleated erythrocytes in Blood by Automated coun [facility] Leukocytes [#/volume ] in Blood [facility] Leukocytes [#/volume ] in Blood [facility] Lymphocytes [#/volum e] in Blood by Automated count [facility] Lymphocytes [#/volum e] in Blood by Automated count [facility] Lymphocytes/100 leuk ocytes in Blood by Automated count [facility] Lymphocytes/100 leuk ocytes in Blood by Automated count [facility] MCH [Entitic mass] b y Automated count [facility] MCH [Entitic mass] b y Automated count [facility] MCHC [Mass/volume] b y Automated count [facility] MCHC [Mass/volume] b y Automated count [facility] MCV [Entitic volume] by Automated count [facility] MCV [Entitic volume] by Automated count [facility] Monocytes [#/volume] in Blood by Automated count [facility] Monocytes [#/volume] in Blood by Automated count [facility] Monocytes/100 leukoc ytes in Blood by Automated count [facility] Monocytes/100 leukoc ytes in Blood by Automated count [facility] Neutrophils [#/volum e] in Blood by Automated count [facility] Neutrophils [#/volum e] in Blood by Automated count [facility] Neutrophils/100 leuk ocytes in Blood by Automated count [facility] Neutrophils/100 leuk ocytes in Blood by Automated count [facility] Nucleated erythrocyt es [Presence] in Blood by Automated count [facility] Nucleated erythrocyt es [Presence] in Blood by Automated count [facility] Patient Education [facility] Work Phone: Patient referral [facility] Work Phone: Platelet mean volume [Entitic volume] in Blood by Automated count [facility] Platelet mean volume [Entitic volume] in Blood by Automated count [facility] Platelets [#/volume] in Blood [facility] Platelets [#/volume] in Blood [facility] Prothrombin time (PT) [facility] Prothrombin time (PT) [facility] US AV fistula [facility] US Lower extremity a rtery - left [facility] Immunizations Immunization Date Immunization Notes Care Provider Fa michaelle 03-31-2022 Pfizer COVID-19 Vac Bivalent 30 MCG/0.3ML Intramuscular Suspension Curtis Byrd Work Phone: [facility] 250 DO Work Phone: 07-15-2021 Comirnaty 30 MCG/0.3 ML Intramuscular Suspension Ozzie Quintero MD Work Phone: [facility] 250 DO Work Phone: 07-15-2021 Pfizer-BioNTech COVI D-19 Vacc 30 MCG/0.3ML Intramuscular Suspension Ozzie Quintero MD Work Phone: [facility] Comment on above: Series: 01-07-2021 Pfizer-BioNTech COVI D-19 Vacc 30 MCG/0.3ML Intramuscular Suspension Ozzie Quintero MD Work Phone: [facility] Comment on above: Series: 05-11-2020 Pfizer-BioNTech COVI D-19 Vacc 30 MCG/0.3ML Intramuscular Suspension Ozzie Quintero MD Work Phone: [facility] 04-20-2020 Pfizer-BioNTech COVI D-19 Vacc 30 MCG/0.3ML Intramuscular Suspension Ozzie Quintero MD Work Phone: [facility] 05-08-2019 pneumococcal polysaccharide vaccine, 23 valent Ozzie Quintero MD Work Phone: [facility] 250 DO Work Phone: 02-25-2019 pneumococcal conjuga te vaccine, 13 valent Ozzie Quintero MD Work Phone: [facility] 250 DO Work Phone: 05-25-2008 influenza virus vacc ine, unspecified formulation Ozzie Quintero MD Work Phone: [facility] Work Phone: Payers Date Payer Category Payer Self-pay [id number] [id number] 2023 Unknown 2017 Medicare MEDICARE MEDICAR E PART A AND B [id number] 2017-Present [address] [place] [address] [id number] 1959 Medicare [id number] [id number] 1959 Unknown [id number] 2.16 .840.1.680717.19 1952 Unknown [id number] 2.16.840.1.712764.3.579.2.593 1952 Unknown [id number] 2.16.840.1.996913.3.579.2.593 1952 Unknown [id number] 2.16.840.1.248380.3.579.2.593 1952 Unknown [id number] 2.16.840.1.335822.3.579.2.593 1952 Unknown [id number] 2.16.840.1.994225.3.579.2.593 1952 Unknown [id number] 2.16.840.1.169672.3.579.2.593 1952 Unknown [id number] 2.16.840.1.980485.3.579.2.593 1952 Unknown [id number] 2.16.840.1.846364.3.579.2.593 1952 Unknown [id number] 2.16.840.1.613180.3.579.2.593 1952 Unknown [id number] 2.16.840.1.706530.3.579.2.593 1952 Unknown [id number] 2.16.840.1.093535.3.579.2.593 1952 Unknown [id number] 2.16.840.1.885979.3.579.2.593 1952 Unknown [id number] 2.16.840.1.910329.3.579.2.593 1952 Unknown [id number] 2.16.840.1.076048.3.579.2.593 1952 Unknown [id number] 2.16.840.1.005240.3.579.2.593 1952 Unknown [id number] 2.16.840.1.786812.3.579.2.593 1952 Unknown [id number] 2.16.840.1.042809.3.579.2.356 1952 Unknown [id number] 2.16.840.1.447879.3.579.2.356 1952 Unknown [id number] 2.16.840.1.191506.3.579.2.1244 1952 Unknown [id number] 2.16.840.1.397049.3.579.2.1259 1952 Unknown [id number] 2.16.840.1.486688.3.579.2.1259 Medicaid Medicaid [id number] Unknown [id number] 2.16.840.1.058921.3.579.2.531 Unknown [id number] 2.16.840.1.019595.3.579.2.531 Unknown [id number] 2.16.840.1.914970.3.579.2.531 Unknown [id number] 2.16.840.1.526017.3.579.2.531 Unknown [id number] 2.16.840.1.845874.3.579.2.531 Unknown [id number] 2.16.840.1.742230.3.579.2.531 Social History Date Type Detail Facility Start: 04-30-2023 No alcohol use No alcohol use -[place] [address] DO Work Phone: Comment on above: Coffee 1 cup daily; quit 2000; Start: 04-30-2023 Sex Assigned At N [facility] [employer] Other Start: 09-21-2021 End: 01-06-2024 Tobacco smoking status NHIS Ex-smoker (finding) [facility] Start: 1950 [facility] Assigned At [facility] End: 02-26-2000 History of tobacco use Current smoker [facility] Work Phone: End: 02-26-2000 History of tobacco use Cigarette Smoker [facility] Work Phone: Start: 04-30-2023 Tobacco use and exposure Smokeless tobacco non-user [facility] Work Phone: Start: 04-30-2023 Alcohol intake Lifetime non-d leonidas (finding) [facility] Work Phone: Start: 1950 Sex Assigned At Not on file [facility] Work Phone: Start: 04-20-2023 End: 04-30-2023 Exposure to SARS-CoV-2 (event) Not sure [facility] Start: 01-05-2024 End: 01-07-2024 Sex Female (finding) [facility] Medical Equipment Procedure Code Equipment Code Equipment Origin al Text Equipment Identifier Dates Fluoroscopic guidance for insertion of tunnelled dialysis catheter [id number] FDA Start: 09-08-2019 Fluoroscopic guidance for insertion of tunnelled dialysis catheter [id number] FDA Start: 09-08-2019 Fluoroscopic guidance for insertion of tunnelled dialysis catheter [id number] FDA Start: 09-08-2019 Fluoroscopic guidance for insertion of tunnelled dialysis catheter [id number] FDA Start: 09-08-2019 Fluoroscopic guidance for insertion of tunnelled dialysis catheter [id number] FDA Start: 09-08-2019 Fluoroscopic guidance for insertion of tunnelled dialysis catheter [id number] FDA Start: 09-08-2019 Fluoroscopic guidance for insertion of tunnelled dialysis catheter [id number] FDA Start: 09-08-2019 Fluoroscopic guidance for insertion of tunnelled dialysis catheter [id number] FDA Start: 09-08-2019 Fluoroscopic guidance for insertion of tunnelled dialysis catheter [id number] FDA Start: 09-08-2019 Fluoroscopic guidance for insertion of tunnelled dialysis catheter [id number] FDA Start: 09-08-2019 Fluoroscopic guidance for insertion of tunnelled dialysis catheter [id number] FDA Start: 09-08-2019 Fluoroscopic guidance for insertion of tunnelled dialysis catheter [id number] FDA Start: 09-08-2019 Fluoroscopic guidance for insertion of tunnelled dialysis catheter [id number] FDA Start: 09-08-2019 Fluoroscopic guidance for insertion of tunnelled dialysis catheter [id number] FDA Start: 09-08-2019 Fluoroscopic guidance for insertion of tunnelled dialysis catheter [id number] FDA Start: 09-08-2019 Fluoroscopic guidance for insertion of tunnelled dialysis catheter [id number] FDA Start: 09-08-2019 Fluoroscopic guidance for insertion of tunnelled dialysis catheter [id number] FDA Start: 09-08-2019 Fluoroscopic guidance for insertion of tunnelled dialysis catheter [id number] FDA Start: 09-08-2019 Fluoroscopic guidance for insertion of tunnelled dialysis catheter [id number] FDA Start: 09-08-2019 Fluoroscopic guidance for insertion of tunnelled dialysis catheter [id number] FDA Start: 09-08-2019 Fluoroscopic guidance for insertion of tunnelled dialysis catheter [id number] FDA Start: 09-08-2019 Fluoroscopic guidance for insertion of tunnelled dialysis catheter [id number] FDA Start: 09-08-2019 Fistulogram Non-neurovascula r embolization coil [id number] FDA Start: 06-23-2020 Fistulogram Non-neurovascula r embolization coil [id number] FDA Start: 06-23-2020 Fistulogram Non-neurovascula r embolization coil [id number] FDA Start: 06-23-2020 Fistulogram Non-neurovascula r embolization coil [id number] FDA Start: 06-23-2020 Fistulogram Multiple periphe ral artery stent, bare-metal ()[id number] FDA Start: 07-04-2023 Capsule endoscopy, for patency of lumen evaluation Video capsule endoscopy system ()[id number] FDA Start: 10-08-2019 Capsule endoscopy, for patency of lumen evaluation Video capsule endoscopy system ()[id number] FDA Start: 06-05-2021 Synthetic vascul ar graft ()[id number] FDA Start: 03-29-2020 Cardiovascular p atch, animal-derived ()[id number] FDA Start: 03-29-2020 Goals Date Patient Goal Desired Activity /State Functional Status Date Assessment Result Facility 01-07-2024 Functional status Patient at Baseline [facility] Work Phone: 10-30-2023 Functional status Patient is Pro gressing Toward Baseline [facility] Work Phone: 03-07-2022 Functional status Patient at Baseline [facility] Work Phone: Mental Status Date Assessment Result Facility 01-07-2024 Cognitive function Cognitive Sta tus Patient at Baseline [facility] Work Phone: 10-30-2023 Cognitive function Cognitive Sta tus Patient at Baseline [facility] Work Phone: 03-07-2022 Cognitive function Cognitive Sta tus Patient at Baseline [facility] Work Phone: Clinical Notes 01-24-2007 to 01-07-2024 Note Date & Type Note Facility 01-07-2024 Nuclear medicine Diagnostic study note [facility] [place] [address] Nuclear Medicine Report Signed Patient: MauroEdita Marguerite MR# : [id number] : 1950 Acct:[id number] Age/Sex: 73 / F ADM Date: 4 Loc: 3T Room: [address] [place] [address] Type: DIS IN Attending Dr: Coreen Jaffe MD Copies to: Salinas Ortega MD, [facility] MD Coreen Archibald MD~ Ordering Provider: Salinas Ortega MD, [facility] Date of Service: 01/07/24 NM/NM andrew perf SPECT rest & str: AF Dose Ordered REFERRING PHYSICIAN: Salinas Ortega MD REASON FOR STUDY: AFib and shortness of breath. PROCEDURE: The patient underwent 1-day rest/stress protocol. Rest images obtained by injecting of 6 mCi Cardiolite. Stress images obtained by injecting 19 mCi of Cardiolite. Subsequently, gated SPECT and ejection fraction studies were performed. IMAGING RESULT: This appears to be a fair study. It appears to be normal. There is no clear pattern of ischemia or myocardial infarction. Left ventricular ejection fraction appears normal, calculated at 58%. TID index normal at 0.9. CONCLUSION: 1. Normal myocardial perfusion study. 2. No ischemia or myocardial infarction. 3. Normal left ventricular systolic function and wall motion. 4. No previous study available for comparison. Transcribed By: CARIDAD 01/08/24 0545 Dictated By: Leatha Ureña MD 01/07/24 1754 Signed By: 01/08/24 1909 [facility] Work Phone: 01-07-2024 Progress note [facility] 01-07-2024 Progress note Note Date/Time January 07, 2024 12:29pm [facility] ENTER [address] [place] [address] Nephrology Progress Note Signed Patient: Edita Costa MR# : [id number] : 1950 Acct:[id number] Age/Sex: 73 / F Adm Date: 4 Loc: 3T Room: [address] [place] [address] Type: ADM IN Attending Dr: Coreen Jaffe MD Copies to: ~ Date of Service: 01/07/2024 Subjective Subjective Narrative: This is a 73-year-old female with medical history of ESRD, A-fib, GERD, HTN, DM,ESRD and HLD was presented to the emergency room for shortness of breath. She was found to have A-fib with RVR and was started on Cardizem drip after Cardizembolus. Missed multiple hemodialysis treatments as she was refusing to come to the dialysis. She was also found to have hyperkalemia and was treated medicallywith insulin , D 50 and Lokelma. Her chest x-ray showed finding for fluid overload. Nephrology was consulted for emergent hemodialysis due to the fluid overload and hyperkalemia. 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 Patient currently resides at the correction and has been refusing to go for dialysis. She met with the hospice on 12/30/2023 and decided to continue dialysis on the request of the son. Interval history: Patient had 2 hemodialysis treatment savy-fr-[id number] on Saturday and Saturday with improvement of shortness of breath and normalization of potassium. A-fib is rate controlled on warfarin. Diltiazem was switched to oral 120 mg p.o. daily. Patient was seen by cardiology and she just underwent Lexiscan for myocardial ischemia assessment. Patient met with palliative care and she stated that she is not ready to quit dialysis at this point. Patient is awake and she denies shortness of breath. No nausea or vomiting. Potassium did improve down to 4 mmol/L. Pulse ox 95% in room air. Exam Physical Exam Vital Signs: Temp Pulse Resp BP Pulse Ox O2 Del Method 36.3 C L 81 20 141/84 H 96 Room Air 01/07/24 07:39 01/07/24 10:17 01/07/24 07:39 01/07/24 11:45 01/07/24 07:39 01/07/24 07:39 Narrative: General: Awake alert, no acute distress HEENT: Mild pallor normocephalic, moist mucous membranes Neck: supple with no JVD CVS: Irregular rate and rhythm, no murmurs or gallops Respiratory: clear to auscultation bilaterally, no wheezing or crackles, symmetric expansion GI: soft, nondistended, nontender, positive bowel sounds with no organomegaly Extremity: moves all extremities, no restrictions of movements, no calf tenderness Neuro: AOx3,Moves all extremities in all planes of motion. Skin: intact no rashes or lesions Vascular access: Left arm AV fistula with good thrill Objective Intake and Output I&O: Intake & Output 01/04/24 01/05/24 01/06/24 01/07/24 23:59 23:59 23:59 23:59 Intake Total 940 / 940 1044 / 1044 0 / 0 Output Total 2003 0 / 0 Balance -1064 / -1064 -956 / -956 0 / 0 Weight 76.3 kg 77.2 kg 73 kg Meds and Allergies Meds: Active Medications Acetaminophen (Acetaminophen 325 Mg Tablet) 650 mg PO Q6HR PRN PRN Reason: Pain Scale 1 - 3 or fever Stop: 01/04/25 05:05 Atorvastatin Calcium (Atorvastatin 20 Mg Tablet) 10 mg PO DAILY [facility] Stop: 01/05/25 08:59 Last Admin: 01/07/24 11:09 Dose: 10 mg Darbepoetin Herbie (Darbepoetin Herbie In Polysorbat 25 Mcg/Ml Vial) 25 mcg IV-PUSHWe@1000 CYNTHIA; Protocol Stop: 01/07/25 09:59 Diltiazem HCl (Diltiazem Cd.24hr 120 Mg Cap.Er.24h) 120 mg PO DAILY [facility] Stop: 01/05/25 13:59 Last Admin: 01/07/24 11:09 Dose: 120 mg Docusate Sodium (Docusate 100 Mg Capsule) 100 mg PO DAILY [facility] Stop: 01/05/25 08:59 Last Admin: 01/07/24 11:09 Dose: 100 mg Sodium Chloride (0.9% Sodium Chloride 1,000 Ml) 1,000 mls @ 0 mls/hr MISCELLANE.Q0M PRN PRN Reason: Dialysis Stop: 01/04/25 08:29 Last Infusion: 01/06/24 11:28 Dose: Infused Midodrine (Midodrine 5 Mg Tablet) 5 mg PO PRN PRN PRN Reason: Dialysis Stop: 01/04/25 08:29 Last Admin: 01/05/24 09:40 Dose: 5 mg Midodrine (Midodrine 5 Mg Tablet) 10 mg PO TID.7A.12P.5P [facility] Stop: 01/04/25 16:59 Last Admin: 01/07/24 11:45 Dose: Not Given Pantoprazole Sodium (Pantoprazole 40 Mg Tablet.Dr) 40 mg PO DAILY [facility] Stop: 01/05/25 08:59 Last Admin: 01/07/24 11:09 Dose: 40 mg Polyethylene Glycol (Polyethylene Glycol 3350 17 Gm Powd.Pack) 17 gm PO DAILY PRN PRN Reason: constipation Stop: 01/04/25 14:16 Sodium Chloride (Sodium Chloride 0.9 % 10 Ml Syringe) 0 ml IV-PUSH PRN PRN PRN Reason: Flush Stop: 01/04/25 03:49 Last Admin: 01/05/24 04:05 Dose: 10 ml Sodium Chloride (Sodium Chloride 0.9 % 10 Ml Syringe) 0 ml IV-PUSH PRN PRN PRN Reason: Flush Stop: 01/04/25 08:29 Last Admin: 01/06/24 11:25 Dose: 10 ml Sodium Chloride (Sodium Chloride 0.9 % 10 Ml Syringe) 0 ml IV-PUSH PRN PRN PRN Reason: Flush Stop: 01/05/25 12:08 Last Admin: 01/07/24 10:15 Dose: 30 ml Vitamin B Complex/Folic Acid (B Complex W-C No.20/Folic Acid 1 Mg Capsule) 1 mgPO DAILY [facility] Stop: 01/05/25 08:59 Last Admin: 01/07/24 11:09 Dose: 1 mg Warfarin Sodium (Warfarin - Pharmacy Dosing) 1 each MISCELLANE ONCE PRN; Protocol PRN Reason: ZZ.Pharmacy Consult Stop: 01/04/25 15:16 Warfarin Sodium (Warfarin 1 Mg Tablet) 0.5 mg PO ONCE ONE Stop: 01/07/24 17:01 Allergies Penicillins Allergy (Severe, Verified 12/19/23 12:21) Swelling of Lip/Tongue/Throat, anaphylaxis tuberculin,PPD,multi-puncture Allergy (Intermediate, Verified 12/19/23 12:21) Redness of Skin atorvastatin (From Lipitor) Allergy (Unknown, Verified 12/19/23 12:21) Cramping of the Muscles, bodyaches Results - Nephrology Labs 01/07/24 07:31 01/07/24 07:31 Labs: 01/07/24 07:31 BUN 13 Creatinine 3.81 H D Albumin 3.1 L Radiology Impressions Impressions - last 24 hours: Any impression(s) listed above is documentation that was entered by the reading physician into a diagnostic report(s) for Edita Costa. I have reviewed the report(s) and am incorporating any findings in the treatment plan of this patient where applicable. 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 She is supposed to have the dialysis on MWF schedule but has been missing her dialysis. (2) Hyperkalemia: Assessment/Problem Details: She has hyperkalemia due to the missing dialysis. (3) Atrial fibrillation with rapid ventricular response: Assessment/Problem Details: Patient presented with shortness of breath and was found to have A-fib with RVR. She is currently on Cardizem drip. She takes Coumadin for CVA prophylaxis. (4) Acute on chronic diastolic (congestive) heart failure: Assessment/Problem Details: Patient presented with shortness of breath and was found to have a CHF on chest x-ray due to the missing dialysis and A-fib with RVR. (5) Secondary hyperparathyroidism: Assessment/Problem Details: She has secondary hyperparathyroidism due to the ESRD currently receives IV Zemplar with dialysis. (6) Anemia in chronic kidney disease: Assessment/Problem Details: Her hemoglobin is within the goal. She received Aranesp with dialysis that is being adjusted to keep Hbg 10-12 gm/dl (7) Missed dialysis: Assessment/Problem Details: She has been missing her dialysis quite often and only goes once a week. Plan * Patient had 2 hemodialysis treatment [id number]. Potassium is down to 3.4 mmol/l. Shortness of breath has improved. Patient decided to continue dialysis and she stated that will be compliant. She will be back on the on MWF schedule. Next hemodialysis will be tomorrow * Pt on Warfarin with INR 2.2. No heparin will be given with dialysis * Will continue midodrine intradialytic hypotension. * Aranesp was on hold as hemoglobin is elevated. Hemoglobin down to 10.9 g/dL. Will restart Aranesp 25 mcg weekly with next hemodialysis on 1 today. * Monitor CBC and renal function daily. Documented By: Rayna Hoang MD 01/07/243 Signed By: <Electronically signed by MD Rayna Hoang> 01/07/24 3921 [facility] Work Phone: [phone]) 847-636511-12-[address] [address] Palliative Care Progress Note Signed Patient: Edita Costa MR# : [id number] : 1950 Acct:[id number] Age/Sex: 73 / F Adm Date: 4 Loc: Room: [address] [place] [address] Type: ADM IN Attending Dr: Coreen Jaffe MD Copies to: ~ Date of Service: 01/07/2024 Subjective Subjective HPI: Ms Mauro has a history of ESRD on HD since 2019, HTN, A fib, DM2, CHF, anemia of chronic disease, PAD who presented to the ER on 01/04 due to concerns of dyspnea. She was sent via EMS from her correction. Patient has been refusing dialysis over the last month and has only gone twice. In the ER, patient's labs showed creatinine of 11.46, BUN 58, Potassium 6. Given lokelma, calcium, glucose/insulin, and dextrose. Bicarb was 23. EKG showed changes. Cardiology was contacted and felt most likely related to non-ischemic causes. Did show afib with RVR. She was started on IV dilatiazem. Chest xray showed volume overload with opacity at the right base, concerning for pleural effusion.Nephrology was consulted and suggested admission for urgent dialysis. She was also noted to have wound on right great toe, concerning for possible gangrene. She was admitted for renal failure and a fib with RVR. She is scheduled for stress test tomorrow. Palliative care has been consulted to assist with goals of care. Patient is laying in bed, returning from dialysis. She denies shortness of breath, chest pain, pain, nausea or vomiting. Denies palpitations or heart skipping beats. Does feel tired. States dialysis is going okay. Patient jade was brought to the hospital because she couldn't breath. Has fair ap petite. She is very hard of hearing. patient is originally from [place] but moved to [place] at 5years old. She has two children. Unfortunately, her daughter within the last month. Her son Emile is HPOA. He feels patient's physical and mental health has declined since daughter passed. They did not have a good relationship and she was not able to repair their relationship. She is and her Hong 4years ago. She has 2 grandchildren, 3 great grandchildren. She alsohas 3 sisters and 1 brother stillalive. She is very close with family. 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 She is somewhat spiritual but does not practice specific bridgett. She states she does not have many hobbies. Most of her time is spent watching TV. Patient's bed Emile is at bedside. He states mom has chosen not to go to dialysis over the last month because she is newly bedbound and its harder for her to go. Prior to recent illness in Oct, she was living independently with a friend. She had never missed dialysis before. It was difficult for her to go and she experienced severe fatigue after. She didn't like going, but was still willing to go. Since getting pneumonia and c diff in Oct, she was discharged toS for therapy. She was not progressing with therapy and has transitioned to LTC. Patient states things at the correction were going good. She needs helptransferring and is dependent on all ADLS, except feeding. Emile feels mom declines going to dialysis because its easy to say no now that she is bedbound. When asked what her barrier to dialysis is, she states the time. She does not like being there for so long. She also states it does make her feel poorly after. Emile ultimately wants her to be comfortable and respect her wishes. She has expressed wanting to stop dialysis to one of her sisters but has told the other she wants to continue going. Family and patient did meet with hospiceat the facility last week but Lori chose to continue dialysis and did not sign onto services. Reviewed patient's wishes. She states shewants to continue dialysis. Asked patient if she has ever thought about when she would want to discontinue dialysis completely. She states she has not. Reviewed that continuing dialysis requires her to go when scheduled. otherwise its ineffective and she would come to and from hospital frequently with worsening symptoms. She states she does not want recurrent hospitalizations. Reviewed transitioning to comfort based approach with goals of keeping patient comfortable and out of hospital. Patient not ready to discontinue dialysis completely. Patient's son Emile is agreeable but is worried that she will change her mind and continue refusing dialysis. Discussed resuscitation preferences. She confirms recent change of DNRCCA without intubation. 01/06 Patient sleeping in bed. wakes easily. No concerns or questions. Nursing states she is having a good day and appears in a good mood as well. Had her lexiscan this morning. Results pending. No family at bedside. Spoke with patient's son Emile on the phone. He did speak with patient's sister who updated that patient has been completely bedbound at facility. Only getting out of bed into wheelchair to go to dialysis. He is also concerned that mom is not having complete insight into her medical condition. She seems forgetful at times. His aunts also confirm she has been confused at times. After discussing with his family, they continue to support her wishes of continuing dialysis. Exam Physical Exam Vital Signs: Temp Pulse Resp BP Pulse Ox O2 Del Method 97.3 F L 81 20 141/84 H 96 Room Air 01/07/24 07:39 01/07/24 10:17 01/07/24 07:39 01/07/24 11:45 01/07/24 07:39 01/07/24 12:00 Const General: cooperative, comfortable, not in acute distress and frail appearing Nutritional Appearance: average body habitus Orientation: alert, awake and oriented x3 Limitations: mental status not altered HEENT Head: normal to inspection Mouth: oral mucosae normal Teeth and gingiva: abnormal dentition Eyes Alignment and Position: abnormal alignment Neck Neck: normal visual inspection Resp Effort & Inspection: normal respiratory effort and not tachypneic Auscultation: clear to auscultation bilaterally, no rhonchi and no wheezes Cardio Rate: not tachycardic Rhythm: abnormal rhythm Heart Sounds: S1 normal and S2 normal GI Palpation: soft, not firm and no guarding Skin Wounds: wounds noted (right great toe) Neuro General: patient alert, patient awake and patient oriented x3 Cranial Nerves: CN's II-XII intact bilaterally Cognition: normal cognition Speech: speech normal Gait: gait abnormal Motor: strength abnormal Extrem General: abnormal gait and no edema Psych Appearance: grossly normal Mood: congruent mood Affect: normal affect Speech and Movement: speech and movement normal Attitude: cooperative Thought Process: normal Thought Content: normal Insight: insight good Judgment: judgment good Objective Labs 01/07/24 07:31 01/07/24 07:31 Labs: Laboratory Results - last 24 hr 01/06/24 01/06/24 01/07/24 16:24 20:57 06:47 Corrected WBC Uncorrected WBC Count RBC Hgb Hct MCV MCH MCHC RDW Plt Count MPV Neut % (Auto) Lymph % (Auto) Burnet % (Auto) Eos % (Auto) Baso % (Auto) Nucleat RBC Rel Count Neut # (Auto) Lymph # (Auto) Burnet # (Auto) Eos # (Auto) Baso # (Auto) PT INR PHA Creatinine Clear Sodium Potassium Chloride Carbon Dioxide Anion Gap BUN Creatinine Est GFR (CKD-EPI) Glucose POC Glucose 77 124 86 Calcium Total Bilirubin AST ALT Alkaline Phosphatase Total Protein Albumin Globulin Albumin/Globulin Ratio 01/07/24 07:31 Corrected WBC 7.4 Uncorrected WBC Count 7.4 RBC 3.64 Hgb 10.9 L Hct 32.9 L MCV 90.4 MCH 29.9 MCHC 33.0 RDW 17.1 H Plt Count 246 MPV 7.0 Neut % (Auto) 64.5 Lymph % (Auto) 24.1 Burnet % (Auto) 9.1 Eos % (Auto) 1.8 Baso % (Auto) 0.5 Nucleat RBC Rel Count 0.2 Neut # (Auto) 4.7 Lymph # (Auto) 1.8 Burnet # (Auto) 0.7 Eos # (Auto) 0.1 Baso # (Auto) 0.0 PT 25.4 H INR 2.2 PHA Creatinine Clear 13.85 Sodium 137 Potassium 3.4 L Chloride 96 L Carbon Dioxide 30.2 Anion Gap 14.2 BUN 13 Creatinine 3.81 H D Est GFR (CKD-EPI) 12.098 Glucose 82 POC Glucose Calcium 8.9 Total Bilirubin 0.7 AST 16 ALT 10 Alkaline Phosphatase 83 Total Protein 5.9 L Albumin 3.1 L Globulin 2.8 Albumin/Globulin Ratio 1.1 Assessment/Plan Assessment/Plan (1) ESRD (end stage renal disease): Code(s): N18.6 - End stage renal disease (2) Counseling regarding advance care planning and goals of care: Code(s): Z71.89 - Other specified counseling Plan Goals remain aggressive. Would like to continue dialysis. Family is supportive. Updated patient's son Emile via phone. All questions and concerns addressed. Active listening and support provided. Will continue to follow. thank you for the consult. Documented By: Tania Waddell DO 01/07/24 1408 Signed By: 01/07/24 1426 [facility]11-12-[address] [address] Nephrology Progress Note Signed Patient: Edita Costa MR# : [id number] : 1950 Acct:[id number] Age/Sex: 73 / F Adm Date: 4 Loc: Room: [address] [place] [address] Type: ADM IN Attending Dr: Coreen Jaffe MD Copies to: ~ Date of Service: 01/07/2024 Subjective Subjective Narrative: This is a 73-year-old female with medical history of ESRD, A-fib, GERD, HTN, DM,ESRD and HLD was presented to the emergency room for shortness of breath. She was found to have A-fib with RVR and was started on Cardizem drip after Cardizembolus. Missed multiple hemodialysis treatments as she was refusing to come to the dialysis. She was also found to have hyperkalemia and was treated medicallywithinsulin , D 50 and Lokelma. Her chest x-ray showed finding for fluid overload. Nephrology was consulted for emergent hemodialysis due to the fluid overload and hyperkalemia. 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 Patient currently resides at the correction and has been refusing to go for dialysis. She met with the hospice on 12/30/2023 and decided to continue dialysis on the request of the son. Interval history: Patient had 2 hemodialysis treatment [id number] on Saturday and Saturday with improvement of shortness of breath and normalization of potassium. A-fib is rate controlled on warfarin. Diltiazem was switched to oral 120 mg p.o. daily. Patient was seen by cardiology and she just underwent Lexiscan for myocardial ischemia assessment. Patient met with palliative care and she stated that she is not ready to quit dialysis at this point. Patient is awake and she denies shortness of breath. No nausea or vomiting. Potassium did improve down to 4 mmol/L. Pulse ox 95% in room air. Exam Physical Exam Vital Signs: Temp Pulse Resp BP Pulse Ox O2 Del Method 36.3 C L 81 20 141/84 H 96 Room Air 01/07/24 07:39 01/07/24 10:17 01/07/24 07:39 01/07/24 11:45 01/07/24 07:39 01/07/24 07:39 Narrative: General: Awake alert, no acute distress HEENT: Mild pallor normocephalic, moist mucous membranes Neck: supple with no JVD CVS: Irregular rate and rhythm, no murmurs or gallops Respiratory: clear to auscultation bilaterally, no wheezing or crackles, symmetric expansion GI: soft, nondistended, nontender, positive bowel sounds with no organomegaly Extremity: moves all extremities, no restrictions of movements, no calf tenderness Neuro: AOx3,Moves all extremities in all planes of motion. Skin: intact no rashes or lesions Vascular access: Left arm AV fistula with good thrill Objective Intake and Output I&O: Intake & Output 01/04/24 01/05/24 01/06/24 01/07/24 23:59 23:59 23:59 23:59 Intake Total 940 / 940 1044 / 1044 0 / 0 Output Total 2003 0 / 0 Balance -1064 / -1064 -956 / -956 0 / 0 Weight 76.3 kg 77.2 kg 73 kg Meds and Allergies Meds: Active Medications Acetaminophen (Acetaminophen 325 Mg Tablet) 650 mg PO Q6HR PRN PRN Reason: Pain Scale 1 - 3 or fever Stop: 01/04/25 05:05 Atorvastatin Calcium (Atorvastatin 20 Mg Tablet) 10 mg PO DAILY [facility] Stop: 01/05/25 08:59 Last Admin: 01/07/24 11:09 Dose: 10 mg Darbepoetin Herbie (Darbepoetin Heribe In Polysorbat 25 Mcg/Ml Vial) 25 mcg IV- PUSHWe@1000 [facility]; Protocol Stop: 01/07/25 09:59 Diltiazem HCl (Diltiazem Cd.24hr 120 Mg Cap.Er.24h) 120 mg PO DAILY [facility] Stop: 01/05/25 13:59 Last Admin: 01/07/24 11:09 Dose: 120 mg Docusate Sodium (Docusate 100 Mg Capsule) 100 mg PO DAILY [facility] Stop: 01/05/25 08:59 Last Admin: 01/07/24 11:09 Dose: 100 mg Sodium Chloride (0.9% Sodium Chloride 1,000 Ml) 1,000 mls @ 0 mls/hr MISCELLANE.Q0M PRN PRN Reason: Dialysis Stop: 01/04/25 08:29 Last Infusion: 01/06/24 11:28 Dose: Infused Midodrine (Midodrine 5 Mg Tablet) 5 mg PO PRN PRN PRN Reason: Dialysis Stop: 01/04/25 08:29 Last Admin: 01/05/24 09:40 Dose: 5 mg Midodrine (Midodrine 5 Mg Tablet) 10 mg PO TID.7A.12P.5P [facility] Stop: 01/04/25 16:59 Last Admin: 01/07/24 11:45 Dose: Not Given Pantoprazole Sodium (Pantoprazole 40 Mg Tablet.Dr) 40 mg PO DAILY [facility] Stop: 01/05/25 08:59 Last Admin: 01/07/24 11:09 Dose: 40 mg Polyethylene Glycol (Polyethylene Glycol 3350 17 Gm Powd.Pack) 17 gm PO DAILY PRN PRN Reason: constipation Stop: 01/04/25 14:16 Sodium Chloride (Sodium Chloride 0.9 % 10 Ml Syringe) 0 ml IV-PUSH PRN PRN PRN Reason: Flush Stop: 01/04/25 03:49 Last Admin: 01/05/24 04:05 Dose: 10 ml Sodium Chloride (Sodium Chloride 0.9 % 10 Ml Syringe) 0 ml IV-PUSH PRN PRN PRN Reason: Flush Stop: 01/04/25 08:29 Last Admin: 01/06/24 11:25 Dose: 10 ml Sodium Chloride (Sodium Chloride 0.9 % 10 Ml Syringe) 0 ml IV-PUSH PRN PRN PRN Reason: Flush Stop: 01/05/25 12:08 Last Admin: 01/07/24 10:15 Dose: 30 ml Vitamin B Complex/Folic Acid (B Complex W-C No.20/Folic Acid 1 Mg Capsule) 1 mgPO DAILY [facility] Stop: 01/05/25 08:59 Last Admin: 01/07/24 11:09 Dose: 1 mg Warfarin Sodium (Warfarin - Pharmacy Dosing) 1 each MISCELLANE ONCE PRN; Protocol PRN Reason: ZZ.Pharmacy Consult Stop: 01/04/25 15:16 Warfarin Sodium (Warfarin 1 Mg Tablet) 0.5 mg PO ONCE ONE Stop: 01/07/24 17:01 Allergies Penicillins Allergy (Severe, Verified 12/19/23 12:21) Swelling of Lip/Tongue/Throat, anaphylaxis tuberculin,PPD,multi-puncture Allergy (Intermediate, Verified 12/19/23 12:21) Redness of Skin atorvastatin (From Lipitor) Allergy (Unknown, Verified 12/19/23 12:21) Cramping of the Muscles, bodyaches Results - Nephrology Labs 01/07/24 07:31 01/07/24 07:31 Labs: 01/07/24 07:31 BUN 13 Creatinine 3.81 H D Albumin 3.1 L Radiology Impressions Impressions - last 24 hours: Any impression(s) listed above is documentation that was entered by the reading physician into a diagnostic report(s) for Edita Costa. I have reviewed the report(s) and am incorporating any findings in the treatment plan of this patient where applicable. 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 She is supposed to have the dialysis on MWF schedule but has been missing her dialysis. (2) Hyperkalemia: Assessment/Problem Details: She has hyperkalemia due to the missing dialysis. (3) Atrial fibrillation with rapid ventricular response: Assessment/Problem Details: Patient presented with shortness of breath and was found to have A-fib with RVR. She is currently on Cardizem drip. She takes Coumadin for CVA prophylaxis. (4) Acute on chronic diastolic (congestive) heart failure: Assessment/Problem Details: Patient presented with shortness of breath and was found to have a CHF on chest x-ray due to the missing dialysis and A-fib with RVR. (5) Secondary hyperparathyroidism: Assessment/Problem Details: She has secondary hyperparathyroidism due to the ESRD currently receives IV Zemplar with dialysis. (6) Anemia in chronic kidney disease: Assessment/Problem Details: Her hemoglobin is within the goal. She received Aranesp with dialysis that is being adjusted to keep Hbg 10-12 gm/dl (7) Missed dialysis: Assessment/Problem Details: She has been missing her dialysis quite often and only goes once a week. Plan * Patient had 2 hemodialysis treatment [id number]. Potassium is down to 3.4 mmol/l. Shortness of breath has improved. Patient decided to continue dialysis and she stated that will be compliant. Shewill be back on the on MWF schedule. Next hemodialysis will be tomorrow * Pt on Warfarin with INR 2.2. No heparin will be given with dialysis * Will continue midodrine intradialytic hypotension. * Aranesp was on hold as hemoglobin is elevated. Hemoglobin down to 10.9 g/dL. Will restart [id number] mcg weekly with next hemodialysis on 1 today. * Monitor CBC and renal function daily. Documented By: Rayna Hoang MD 01/07/241222 Signed By: 01/07/24 1229 [facility]11-11-2024 Progress note Author Coreen Jaffe [facility] Note Date/Time January 06, 2024 3:44pm [facility] [address] [place] [address] Hospitalist Progress Note Signed Patient: Edita Costa MR# : [id number] : 1950 Acct:[id number] Age/Sex: 73 / F Adm Date: 4 Loc: Room: [address] [place] [address] Type: ADM IN Attending Dr: Coreen Jaffe MD Copies to: ~ Date of Service: 01/06/2024 Subjective Subjective Narrative: Patient has been seen and examined today. She is feeling better today. Denies any dizziness any chest pain and shortness of breath. Denies any abdominal any back pain. Physical exam: General -awake, alert, oriented ?3, not in acute distress, weak appearing Cardiovascular -S1 with S2 Pulmonary - clear to auscultation bilaterally Gastrointestinal - abdomen is soft, nondistended, nontender, bowel sounds positive, there is no rigidity, no rebound Extremities -no edema Neurological -no focal neurological dysfunction noted Laboratory work up and Imaging studies reviewed Exam Physical Exam Vital Signs: Temp Pulse Resp BP Pulse Ox O2 Del Method 36.5 C 102 H 16 106/57 L 91 L Room Air 01/06/24 13:30 01/06/24 13:47 01/06/24 13:47 01/06/24 13:47 01/06/24 13:47 01/06/24 13:47 Objective Lab Results 01/06/24 05:17 01/06/24 05:17 Meds Allergies and Active Meds Allergies Penicillins Allergy (Severe, Verified 12/19/23 12:21) Swelling of Lip/Tongue/Throat, anaphylaxis tuberculin,PPD,multi-puncture Allergy (Intermediate, Verified 12/19/23 12:21) Redness of Skin atorvastatin (From Lipitor) Allergy (Unknown, Verified 12/19/23 12:21) Cramping of the Muscles, bodyaches Active Meds: Active Medications Generic Name Dose Route Start Last Admin Trade Name Freq PRN Reason Stop Dose Admin Acetaminophen 650 mg 01/05/24 05:06 Acetaminophen 325 Mg Tablet PO 01/04/25 05:05 Q6HR PRN Pain Scale 1 - 3 or fever Atorvastatin Calcium 10 mg 01/06/24 09:00 01/06/24 14:11 Atorvastatin 20 Mg Tablet PO 01/05/25 08:59 10 mg DAILY CYNTHIA Administration Darbepoetin Herbie 25 mcg 01/08/24 10:00 Darbepoetin Herbie In Polysorbat 25 Mcg/Ml Vial IV-PUSH 01/07/25 09:59 We@1000 [facility] Protocol Diltiazem HCl 120 mg 01/06/24 14:00 01/06/24 14:15 Diltiazem Cd.24hr 120 Mg Cap.Er.24h PO 01/05/25 13:59 120 mg DAILY CYNTHIA Administration Docusate Sodium 100 mg 01/06/24 09:00 01/06/24 14:10 Docusate 100 Mg Capsule PO 01/05/25 08:59 100 mg DAILY CYNTHIA Administration Sodium Chloride 1,000 mls @ 0 mls/hr 01/05/24 08:30 01/06/24 11:28 0.9% Sodium Chloride 1,000 Ml MISCELLANE 01/04/25 08:29 Infused .Q0M PRN Infusion Dialysis As Directed Midodrine 5 mg 01/05/24 08:30 01/05/24 09:40 Midodrine 5 Mg Tablet PO 01/04/25 08:29 5 mg PRN PRN Administration Dialysis Midodrine 10 mg 01/05/24 17:00 01/06/24 11:25 Midodrine 5 Mg Tablet PO 01/04/25 16:59 10 mg TID.7A.12P.5P CYNTHIA Administration Pantoprazole Sodium 40 mg 01/06/24 09:00 01/06/24 14:10 Pantoprazole 40 Mg Tablet.Dr PO 01/05/25 08:59 40 mg DAILY CYNTHIA Administration Polyethylene Glycol 17 gm 01/05/24 14:17 Polyethylene Glycol 3350 17 Gm Powd.Pack PO 01/04/25 14:16 DAILY PRN constipation Sodium Chloride 0 ml 01/05/24 03:50 01/05/24 04:05 Sodium Chloride 0.9 % 10 Ml Syringe IV-PUSH 01/04/25 03:49 10 ml PRN PRN Administration Flush Sodium Chloride 0 ml 01/05/24 08:30 01/06/24 11:25 Sodium Chloride 0.9 % 10 Ml Syringe IV-PUSH 01/04/25 08:29 10 ml PRN PRN Administration Flush Sodium Chloride 0 ml 01/06/24 12:09 Sodium Chloride 0.9 % 10 Ml Syringe IV-PUSH 01/05/25 12:08 PRN PRN Flush Vitamin B Complex/Folic Acid 1 mg 01/06/24 09:00 01/06/24 14:10 B Complex W-C No.20/Folic Acid 1 Mg Capsule PO 01/05/25 08:59 1 mg DAILY CYNTHIA Administration Warfarin Sodium 1 each 01/05/24 15:17 Warfarin - Pharmacy Dosing MISCELLANE 01/04/25 15:16 ONCE PRN ZZ.Pharmacy Consult Protocol Warfarin Sodium 0.5 mg 01/06/24 17:00 Warfarin 1 Mg Tablet PO 01/06/24 17:01 ONCE ONE A&P - Hospitalist Assessment/Plan (1) Atrial fibrillation with rapid ventricular response: (2) Missed dialysis: (3) Hyperkalemia: (4) Volume overload: Plan Atrial Fibrillation with Rapid Ventricular Response Improved, probably due to missed dialysis Missed dialysis Hyperkalemia Volume overload Improved Chronic conditions -Hyperlipidemia on statin -Constipation-continue home bowel regimen -Hypotension-continue midodrine -GERD-continue omeprazole FULL CODE VTE prophylaxis- on warfarin Documented By: Coreen Jaffe MD 01/06/24 1541 Signed By: <Electronically signed by Coreen Jaffe MD> 01/06/24 154 [facility] Work Phone: 1(394) 302-306211-11-2024 Consult note Author Tania Waddell [facility] Note Date/Time January 06, 2024 3:11pm [facility] [address] [place] [address] Palliative Care Consult Note Signed Patient: Edita Costa MR# : [id number] : 1950 Acct:[id number] Age/Sex: 73 / F Adm Date: 4 Loc: Room: [address] [place] [address] Type: ADM IN Attending Dr: Coreen Jaffe MD Copies to: DO Curtis Kim II, MD Ruta Semaskiene, MD~ HPI Data of Consult Date of Consult: 01/06/2024 Requesting Physician: Coreen Jaffe MD Primary Care Provider: Curtis Byrd II, MD Consult Narrative Reason for Consult: goals of care HPI: Ms Costa has a history of ESRD on HD since 2019, HTN, A fib, DM2, CHF, anemia of chronic disease, PAD who presented to the ER on 01/04 due to concerns of dyspnea. She was sent via EMS from her correction. Patient has been refusing dialysis over the last month and has only gone twice. In the ER, patient's labs showed creatinine of 11.46, BUN 58, Potassium 6. Given lokelma, calcium, glucose/insulin, and dextrose. Bicarb was 23. EKG showed changes. Cardiology was contacted and felt most likely related to non-ischemic causes. Did show afib with RVR. She was started on IV dilatiazem. Chest xray showed volume overload with opacity at the right base, concerning for pleural effusion.Nephrology was consulted and suggested admission for urgent dialysis. She was also noted to have wound on right great toe, concerning for possible gangrene. She was admitted for renal failure and a fib with RVR. She is scheduled for stress test tomorrow. Palliative care has been consulted to assist with goals of care. Patient is laying in bed, returning from dialysis. She denies shortness of breath, chest pain, pain, nausea or vomiting. Denies palpitations or heart skipping beats. Does feel tired. States dialysis is going okay. Patient statesshe was brought to the hospital because she couldn't breath. Has fair appetite. She is very hard of hearing. patient is originially from [place] but moved to [place] at 5years old. She has two children. Unfortunately, her daughter within the last month. Her son Emile is HPOA. He feels patient's physical and mental health has declined since daughter passed. They did not have a good relationship and she was not able to repair their relationship. She is and her Hong 4years ago. She has 2 grandchildren, 3 great grandchildren. She alsohas 3 sisters and 1 brother still alive. She is very close with family. 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 She is somewhat spiritual but does not practice specific bridgett. She states she does not have many hobbies. Most of her time is spent watching TV. Patient's bed Emile is at bedside. He states mom has chosen not to go to dialysis over the last month because she is newly bedbound and its harder for her to go. Prior to recent illness in Oct, she was living independently with a friend. She had never missed dialysis before. It was difficult for her to go and she experienced severe fatigue after. She didn't like going, but was still willing to go. Since getting pneumonia and c diff in Oct, she was discharged toS for therapy. She was not progressing with therapy and has transitioned to LTC. Patient states things at the correction were going good. She needs helptransferring and is dependent on all ADLS, except feeding. Emile feels mom declines going to dialysis because its easy to say no now that she is bedbound. When asked what her barrier to dialysis is, she states the time. She does not like being there for so long. She also states it does make her feel poorly after. Emile ultimately wants her to be comfortable and respect her wishes. She has expressed wanting to stop dialysis to one of her sisters but has told the other she wants to continue going. Family and patient did meet with hospiceat the facility last week but Lori chose to continue dialysis and did not sign onto services. Reviewed patient's wishes. She states she wants to continue dialysis. Asked patient if she has ever thought about when she would want to discontinue dialysis completely. She states she has not. Reviewed that continuing dialysis requires her to go when scheduled. otherwise its ineffective and she would come to and from hospital frequently with worsening symptoms. She states she does not want recurrent hospitalizations. Reviewed transitioning to comfort based approach with goals of keeping patient comfortable and out of hospital. Patient not ready to discontinue dialysis completely. Patient's son Emile is agreeable but is worried that she will change her mind and continue refusing dialysis. Discussed resuscitation preferences. She confirms recent change of DNRCCA without intubation. Review of Systems Review of Systems All other systems reviewed & are negative unless noted below or in HPI [facility] Medical History (Updated 01/06/24 @ 15:09 by Tania Waddell DO) Tachy-chris syndrome Severe peripheral arterial disease Sacroiliitis Proteinuria Occult blood in stools Lumbosacral spondylosis Lumbar degenerative disc disease Left peroneal nerve palsy Iron deficiency anemia due to chronic blood loss Iron deficiency anemia Intestinal ulcer Essential hypertension Dyspnea Chronic pain CHF (congestive heart failure) Blood in stool Anticoagulated Anemia of chronic disease Anemia associated with chronic renal failure C. difficile colitis Hyperkalemia Acute diarrhea Supratherapeutic INR Acute GI bleeding Atrial fibrillation with RVR Acute hyperkalemia Leukocytosis Diarrhea Acute hyponatremia Hyponatremia GERD (gastroesophageal reflux disease) Atrial fibrillation, persistent Elevated troponin Hyperlipidemia GERD (gastroesophageal reflux disease) Neuropathy Spinal stenosis GERD (gastroesophageal reflux disease) Peripheral arterial disease History of cardioversion A-fib AVF (arteriovenous fistula) left arm Dialysis patient M-W-F @ [facility] [place] Benign hypertension with end-stage renal disease Hyperlipidemia Tricuspid regurgitation HTN (hypertension) ESRD (end stage renal disease) Surgical History S/P arteriovenous (AV) fistula creation History of tubal ligation History of orthopedic surgery denies any orthopedic surgeries Hx of hysterectomy partial Hx of cholecystectomy History of tonsillectomy and adenoidectomy Family History Daughter Drug abuse Sister Thyroid cancer Diabetes Sister Back problem Father Diabetes Myocardial infarction Brother Diabetes Mother Gastric ulcer Son Diabetes Brother Diabetes Legacy FamHx Relation: Brother(s) Hypertension Legacy FamHx Relation: Brother(s) Brother Hypertension Legacy FamHx Relation: Brother(s) Father Diabetes Heart disease Hypertension Mother Gastric ulcer Son Diabetes Sister Cancer Legacy FamHx Problem: Diagnosed with Cancer Social History Smoking Status: Former smoker Tobacco Type: cigarettes Substance Use Type: None Social History Comments: lives and cares for sisters mother in law Allergies & Medications Medications and Allergies Allergies Penicillins Allergy (Severe, Verified 12/19/23 12:21) Swelling of Lip/Tongue/Throat, anaphylaxis tuberculin,PPD,multi-puncture Allergy (Intermediate, Verified 12/19/23 12:21) Redness of Skin atorvastatin (From Lipitor) Allergy (Unknown, Verified 12/19/23 12:21) Cramping of the Muscles, bodyaches Home Medications bumetanide 1 mg tablet 1 mg PO QHS 11/17/19 [History Confirmed 01/05/24] rosuvastatin 10 mg tablet 10 mg PO DAILY 06/23/20 [History Confirmed 01/05/24] biotin 5,000 mcg disintegrating tablet 10,000 mcg PO DAILY 01/26/21 [History Confirmed 01/05/24] docusate sodium 100 mg capsule (Colace) 100 mg PO DAILY Constipation 01/26/21 [History Confirmed 01/05/24] acetaminophen 650 mg tablet,extended release 650 mg PO Q12H PRN Pain 03/06/22 [History Confirmed 01/05/24] midodrine 10 mg tablet 10 mg PO TID 10/26/23 [History Confirmed 01/05/24] diltiazem HCl 120 mg capsule,extended release 24 hr 120 mg PO DAILY #0 caps 10/30/23 [Rx Confirmed 01/05/24] midodrine 5 mg tablet 5 mg PO MOWEFR PRN dialysis #0 tabs 10/30/23 [Rx Confirmed 01/05/24] polyethylene glycol 3350 17 gram oral powder packet (Miralax) 17 g PO DAILY PRN constipation #14 ea 10/30/23 [Rx Confirmed 01/05/24] B Complex-Vitamin C 1 tab PO DAILY 01/05/24 [History Confirmed 01/05/24] omeprazole 20 mg capsule,delayed release 20 mg PO DAILY 01/05/24 [History Confirmed 01/05/24] warfarin 1 mg tablet 0.5 mg PO HS 01/05/24 [History Confirmed 01/05/24] Active Medications Acetaminophen (Acetaminophen 325 Mg Tablet) 650 mg PO Q6HR PRN PRN Reason: Pain Scale 1 - 3 or fever Stop: 01/04/25 05:05 Atorvastatin Calcium (Atorvastatin 20 Mg Tablet) 10 mg PO DAILY CYNTHIA Stop: 01/05/25 08:59 Last Admin: 01/06/24 14:11 Dose: 10 mg Darbepoetin Herbie (Darbepoetin Herbie In Polysorbat 25 Mcg/Ml Vial) 25 mcg IV-PUSHWe@1000 CYNTHIA; Protocol Stop: 01/07/25 09:59 Diltiazem HCl (Diltiazem Cd.24hr 120 Mg Cap.Er.24h) 120 mg PO DAILY CYNTHIA Stop: 01/05/25 13:59 Last Admin: 01/06/24 14:15 Dose: 120 mg Docusate Sodium (Docusate 100 Mg Capsule) 100 mg PO DAILY [facility] Stop: 01/05/25 08:59 Last Admin: 01/06/24 14:10 Dose: 100 mg Sodium Chloride (0.9% Sodium Chloride 1,000 Ml) 1,000 mls @ 0 mls/hr MISCELLANE.Q0M PRN PRN Reason: Dialysis Stop: 01/04/25 08:29 Last Infusion: 01/06/24 11:28 Dose: Infused Midodrine (Midodrine 5 Mg Tablet) 5 mg PO PRN PRN PRN Reason: Dialysis Stop: 01/04/25 08:29 Last Admin: 01/05/24 09:40 Dose: 5 mg Midodrine (Midodrine 5 Mg Tablet) 10 mg PO TID.7A.12P.5P [facility] Stop: 01/04/25 16:59 Last Admin: 01/06/24 11:25 Dose: 10 mg Pantoprazole Sodium (Pantoprazole 40 Mg Tablet.Dr) 40 mg PO DAILY CYNTHIA Stop: 01/05/25 08:59 Last Admin: 01/06/24 14:10 Dose: 40 mg Polyethylene Glycol (Polyethylene Glycol 3350 17 Gm Powd.Pack) 17 gm PO DAILY PRN PRN Reason: constipation Stop: 01/04/25 14:16 Sodium Chloride (Sodium Chloride 0.9 % 10 Ml Syringe) 0 ml IV-PUSH PRN PRN PRN Reason: Flush Stop: 01/04/25 03:49 Last Admin: 01/05/24 04:05 Dose: 10 ml Sodium Chloride (Sodium Chloride 0.9 % 10 Ml Syringe) 0 ml IV-PUSH PRN PRN PRN Reason: Flush Stop: 01/04/25 08:29 Last Admin: 01/06/24 11:25 Dose: 10 ml Sodium Chloride (Sodium Chloride 0.9 % 10 Ml Syringe) 0 ml IV-PUSH PRN PRN PRN Reason: Flush Stop: 01/05/25 12:08 Vitamin B Complex/Folic Acid (B Complex W-C No.20/Folic Acid 1 Mg Capsule) 1 mgPO DAILY CYNTHIA Stop: 01/05/25 08:59 Last Admin: 01/06/24 14:10 Dose: 1 mg Warfarin Sodium (Warfarin - Pharmacy Dosing) 1 each MISCELLANE ONCE PRN; Protocol PRN Reason: ZZ.Pharmacy Consult Stop: 01/04/25 15:16 Warfarin Sodium (Warfarin 1 Mg Tablet) 0.5 mg PO ONCE ONE Stop: 01/06/24 17:01 Exam Physical Exam Vital Signs: Temp Pulse Resp BP Pulse Ox O2 Del Method 97.7 F 102 H 16 106/57 L 91 L Room Air 01/06/24 13:30 01/06/24 13:47 01/06/24 13:47 01/06/24 13:47 01/06/24 13:47 01/06/24 13:47 Const General: cooperative, comfortable, not in acute distress and frail appearing Nutritional Appearance: average body habitus Orientation: alert, awake and oriented x3 Limitations: mental status not altered HEENT Head: normal to inspection Mouth: oral mucosae normal Teeth and gingiva: abnormal dentition Eyes Alignment and Position: abnormal alignment Neck Neck: normal visual inspection Resp Effort & Inspection: normal respiratory effort and not tachypneic Auscultation: clear to auscultation bilaterally, no rhonchi and no wheezes Cardio Rate: not tachycardic Rhythm: abnormal rhythm Heart Sounds: S1 normal and S2 normal GI Palpation: soft, not firm and no guarding Skin Wounds: wounds noted (right great toe) Neuro General: patient alert, patient awake and patient oriented x3 Cranial Nerves: CN's II-XII intact bilaterally Cognition: normal cognition Speech: speech normal Gait: gait abnormal Motor: strength abnormal Extrem General: abnormal gait and no edema Psych Appearance: grossly normal Mood: congruent mood Affect: normal affect Speech and Movement: speech and movement normal Attitude: cooperative Thought Process: normal Thought Content: normal Insight: insight good Judgment: judgment good Other: pleasant, cooperative, calm, laughs and made jokes Results - Palliative Care Labs 01/06/24 05:17 01/06/24 05:17 Labs: Laboratory Last Values Corrected WBC 8.5 X10E3/uL (3.8-11.6) 01/06/24 05:17 Uncorrected WBC Count 8.5 x10E3/uL (3.8-11.6) 01/06/24 05:17 RBC 4.02 X10E6/uL (3.60-5.00) 01/06/24 05:17 Hgb 12.0 g/dL (11.8-15.4) 01/06/24 05:17 Hct 36.4 % (34.0-46.4) 01/06/24 05:17 MCV 90.5 fl (80-100) 01/06/24 05:17 MCH 29.7 pg (24.7-34.3) 01/06/24 05:17 MCHC 32.9 g/dL (32.0-35.0) 01/06/24 05:17 RDW 17.6 % (11.9-15.3) H 01/06/24 05:17 Plt Count 267 x10E3/uL (150-450) 01/06/24 05:17 MPV 7.1 fl (6.3-10.7) 01/06/24 05:17 Neut % (Auto) 71.3 % (.) 01/06/24 05:17 Lymph % (Auto) 19.5 % (.) 01/06/24 05:17 Burnet % (Auto) 7.1 % (.) 01/06/24 05:17 Eos % (Auto) 1.5 % (.) 01/06/24 05:17 Baso % (Auto) 0.6 % (.) 01/06/24 05:17 Nucleat RBC Rel Count 0.1 /100 WBC (0-0.5) 01/06/24 05:17 Neut # (Auto) 6.0 x10E3/uL (1.8-7.7) 01/06/24 05:17 Lymph # (Auto) 1.7 x10E3/uL (1.00-4.8) 01/06/24 05:17 Burnet # (Auto) 0.6 x10E3/uL (0.0-0.8) 01/06/24 05:17 Eos # (Auto) 0.1 x10E3/uL (0.0-0.45) 01/06/24 05:17 Baso # (Auto) 0.1 x10E3/uL (0.0-0.2) 01/06/24 05:17 Monocyte Dist Width 20.38 % (0.00-20.00) H 01/05/24 03:38 PT 22.3 Seconds (9.0-12.9) H 01/06/24 05:17 INR 2.0 01/06/24 05:17 APTT 34.8 Seconds (25.1-36.5) 01/05/24 03:38 PHA Creatinine Clear 8.82 01/06/24 05:17 Sodium 137 mmol/L (136-145) 01/06/24 05:17 Potassium 4.0 mmol/L (3.5-5.1) D 01/06/24 05:17 Chloride 94 mmol/L (98-107) L 01/06/24 05:17 Carbon Dioxide 28.2 mmol/L (21.0-31.0) 01/06/24 05:17 Anion Gap 18.8 mEq/L (6.0-15.0) H 01/06/24 05:17 BUN 23 mg/dL (7-25) D 01/06/24 05:17 Creatinine 6.14 mg/dL (0.60-1.20) H D 01/06/24 05:17 Est GFR (CKD-EPI) 6.823 mL/Min 01/06/24 05:17 Glucose 78 mg/dL (70-100) 01/06/24 05:17 POC Glucose 84 mg/dl 01/06/24 06:46 POC Glucose Comment Glu2: cleaned meter 01/05/24 06:44 Calcium 9.0 mg/dL (8.6-10.3) 01/06/24 05:17 Phosphorus 7.2 mg/dL (2.5-4.5) H 01/05/24 03:38 Magnesium 2.3 mg/dL (1.9-2.7) 01/05/24 03:38 Total Bilirubin 0.7 mg/dl (0.3-1.0) 01/06/24 05:17 AST 20 U/L (13-39) 01/06/24 05:17 ALT 11 U/L (7-52) 01/06/24 05:17 Alkaline Phosphatase 86 U/L (34-104) 01/06/24 05:17 Total Creatine Kinase 29 U/L (30-223) L 01/05/24 03:38 Troponin I High Sens 62.1 pg/mL (0.0-15.0) H* 01/05/24 03:38 Total Protein 5.8 gm/dL (6.4-8.9) L 01/06/24 05:17 Albumin 3.2 gm/dL (3.5-5.7) L 01/06/24 05:17 Globulin 2.6 gm/dL 01/06/24 05:17 Albumin/Globulin Ratio 1.2 01/06/24 05:17 Assessment/Plan (1) ESRD (end stage renal disease): Code(s): N18.6 - End stage renal disease (2) Counseling regarding advance care planning and goals of care: Code(s): Z71.89 - Other specified counseling Plan Reviewed patient's overall condition and goals. She is not ready to stop dialysis. Discussed importance of going to dialysis routinely to avoid hospitalizations and worsening symptoms. She is agreeable to going. Reviewed alternative with comfort based approach. Encouraged patient to consider when she would decide to stop dialysis completely. Active listening and support provided to son Emile. All questions and concerns addressed. Resuscitation preferences DNRCCA without intubation. Documented By: Tania Waddell DO 01/06/24 1422 Signed By: <Electronically signed by Tania Waddell DO> 01/06/[address] [place] [address] Work Phone: 1(651) 988-482511-11-2024 [place] [address] Hospitalist Progress Note Signed Patient: Edita Costa MR# : [id number] : 1950 Acct:[id number] Age/Sex: 73 / F Adm Date: 4 Loc: 3T Room: [address] [place] [address] Type: ADM IN Attending Dr: Coreen Jaffe MD Copies to: ~ Date of Service: 01/06/2024 Subjective Subjective Narrative: Patient has been seen and examined today. She is feeling better today. Denies any dizziness any chest pain and shortness of breath. Denies any abdominal any back pain. Physical exam: General -awake, alert, oriented ?3, not in acute distress, weak appearing Cardiovascular -S1 with S2 Pulmonary - clear to auscultation bilaterally Gastrointestinal - abdomen is soft, nondistended, nontender, bowel sounds positive, there is no rigidity, no rebound Extremities -no edema Neurological -no focal neurological dysfunction noted Laboratory work up and Imaging studies reviewed Exam Physical Exam Vital Signs: Temp Pulse Resp BP Pulse Ox O2 Del Method 36.5 C 102 H 16 106/57 L 91 L Room Air 01/06/24 13:30 01/06/24 13:47 01/06/24 13:47 01/06/24 13:47 01/06/24 13:47 01/06/24 13:47 Objective Lab Results 01/06/24 05:17 01/06/24 05:17 Meds Allergies and Active Meds Allergies Penicillins Allergy (Severe, Verified 12/19/23 12:21) Swelling of Lip/Tongue/Throat, anaphylaxis tuberculin,PPD,multi-puncture Allergy (Intermediate, Verified 12/19/23 12:21) Redness of Skin atorvastatin (From Lipitor) Allergy (Unknown, Verified 12/19/23 12:21) Cramping of the Muscles, bodyaches Active Meds: Active Medications Generic Name Dose Route Start Last Admin Trade Name Freq PRN Reason Stop Dose Admin Acetaminophen 650 mg 01/05/24 05:06 Acetaminophen 325 Mg Tablet PO 01/04/25 05:05 Q6HR PRN Pain Scale 1 - 3 or fever Atorvastatin Calcium 10 mg 01/06/24 09:00 01/06/24 14:11 Atorvastatin 20 Mg Tablet PO 01/05/25 08:59 10 mg DAILY CYNTHIA Administration Darbepoetin Herbie 25 mcg 01/08/24 10:00 Darbepoetin Herbie In Polysorbat 25 Mcg/Ml Vial IV-PUSH 01/07/25 09:59 We@1000 [facility] Protocol Diltiazem HCl 120 mg 01/06/24 14:00 01/06/24 14:15 Diltiazem Cd.24hr 120 Mg Cap.Er.24h PO 01/05/25 13:59 120 mg DAILY CYNTHIA Administration Docusate Sodium 100 mg 01/06/24 09:00 01/06/24 14:10 Docusate 100 Mg Capsule PO 01/05/25 08:59 100 mg DAILY CYNTHIA Administration Sodium Chloride 1,000 mls @ 0 mls/hr 01/05/24 08:30 01/06/24 11:28 0.9% Sodium Chloride 1,000 Ml MISCELLANE 01/04/25 08:29 Infused .Q0M PRN Infusion Dialysis As Directed Midodrine 5 mg 01/05/24 08:30 01/05/24 09:40 Midodrine 5 Mg Tablet PO 01/04/25 08:29 5 mg PRN PRN Administration Dialysis Midodrine 10 mg 01/05/24 17:00 01/06/24 11:25 Midodrine 5 Mg Tablet PO 01/04/25 16:59 10 mg TID.7A.12P.5P CYNTHIA Administration Pantoprazole Sodium 40 mg 01/06/24 09:00 01/06/24 14:10 Pantoprazole 40 Mg Tablet.Dr PO 01/05/25 08:59 40 mg DAILY CYNTHIA Administration Polyethylene Glycol 17 gm 01/05/24 14:17 Polyethylene Glycol 3350 17 Gm Powd.Pack PO 01/04/25 14:16 DAILY PRN constipation Sodium Chloride 0 ml 01/05/24 03:50 01/05/24 04:05 Sodium Chloride 0.9 % 10 Ml Syringe IV-PUSH 01/04/25 03:49 10 ml PRN PRN Administration Flush Sodium Chloride 0 ml 01/05/24 08:30 01/06/24 11:25 Sodium Chloride 0.9 % 10 Ml Syringe IV-PUSH 01/04/25 08:29 10 ml PRN PRN Administration Flush Sodium Chloride 0 ml 01/06/24 12:09 Sodium Chloride 0.9 % 10 Ml Syringe IV-PUSH 01/05/25 12:08 PRN PRN Flush Vitamin B Complex/Folic Acid 1 mg 01/06/24 09:00 01/06/24 14:10 B Complex W-C No.20/Folic Acid 1 Mg Capsule PO 01/05/25 08:59 1 mg DAILY CYNTHIA Administration Warfarin Sodium 1 each 01/05/24 15:17 Warfarin - Pharmacy Dosing MISCELLANE 01/04/25 15:16 ONCE PRN ZZ.Pharmacy Consult Protocol Warfarin Sodium 0.5 mg 01/06/24 17:00 Warfarin 1 Mg Tablet PO 01/06/24 17:01 ONCE ONE A&P - Hospitalist Assessment/Plan (1) Atrial fibrillation with rapid ventricular response: (2) Missed dialysis: (3) Hyperkalemia: (4) Volume overload: Plan Atrial Fibrillation with Rapid Ventricular Response Improved, probably due to missed dialysis Missed dialysis Hyperkalemia Volume overload Improved Chronic conditions -Hyperlipidemia on statin -Constipation-continue home bowel regimen -Hypotension-continue midodrine -GERD-continue omeprazole FULL CODE VTE prophylaxis- on warfarin Documented By: Coreen Jaffe MD 01/06/24 154 Signed By: 01/06/24 1544 [facility]11-11-2024 [place] [address] Palliative Care Consult Note Signed Patient: Edita Costa MR# : [id number] : 1950 Acct:[id number] Age/Sex: 73 / F Adm Date: 4 Loc: Room: [address] [place] [address] Type: ADM IN Attending Dr: Coreen Jaffe MD Copies to: DO Curtis Kim II, MD Ruta Semaskiene, MD~ HPI Data of Consult Date of Consult: 01/06/2024 Requesting Physician: Coreen Jaffe MD Primary Care Provider: Curtis Byrd II, MD Consult Narrative Reason for Consult: goals of care HPI: Ms Costa has a history of ESRD on HD since 2019, HTN, A fib, DM2, CHF, anemia of chronic disease, PAD who presented to the ER on 01/04 due to concerns of dyspnea. She was sent via EMS from her correction. Patient has been refusing dialysis over the last month and has only gone twice. In the ER, patient's labs showed creatinine of 11.46, BUN 58, Potassium 6. Given lokelma, calcium, glucose/insulin, and dextrose. Bicarb was 23. EKG showed changes. Cardiology was contacted and felt most likely related to non-ischemic causes. Did show afib with RVR. She was started on IV dilatiazem. Chest xray showed volume overload with opacity at the right base, concerning for pleural effusion.Nephrology was consulted and suggested admission for urgent dialysis. She was also noted to have wound on right great toe, concerning for possible gangrene. She was admitted for renal failure and a fib with RVR. She is scheduled for stress test tomorrow. Palliative care has been consulted to assist with goals of care. Patient is laying in bed, returning from dialysis. She denies shortness of breath, chest pain, pain, nausea or vomiting. Denies palpitations or heart skipping beats. Does feel tired. States dialysis is going okay. Patient jade was brought to the hospital because she couldn't breath. Has fair ap petite. She is very hard of hearing. patient is originially from [place] but moved to [place] at 5years old. She has two children. Unfortunately, her daughter within the last month. Her son Emile is HPOA. He feels patient's physical and mental health has declined since daughter passed. They did not have a good relationshipand she was not able to repair their relationship. She is and her Hong 4 years ago. She has 2 grandchildren, 3 great grandchildren. She alsohas 3 sisters and 1 brother still alive. She is very close with family. 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 She is somewhat spiritual but does not practice specific bridgett. She states she does not have many hobbies. Most of her time is spent watching TV. Patient's bed Emile is at bedside. He states mom has chosen not to go to dialysis over the last month because she is newly bedbound and its harder for her to go. Prior to recent illness in Oct, she was living independently with a friend. She had never missed dialysis before. It was difficult for her to go and she experienced severe fatigue after. She didn't like going, but was still willing to go. Since getting pneumonia and c diff in Oct, she was discharged toS for therapy. She was not progressing with therapy and has transitioned to LTC. Patient states things at the correction were going good. She needs helptransferring and is dependent on all ADLS, except feeding. Emile feels mom declines going to dialysis because its easy to say no now that she is bedbound. When asked what her barrier to dialysis is, she states the time. She does not like being there for so long. She also states it does make her feel poorly after. Emile ultimately wants her to be comfortable and respect her wishes. She has expressed wanting to stop dialysis to one of her sisters but has told the other she wants to continue going. Family and patient did meet with hospiceat the facility last week but Lori chose to continue dialysis and did not sign onto services. Reviewed patient's wishes. She states shewants to continue dialysis. Asked patient if she has ever thought about when she would want to discontinue dialysis completely. She states she has not. Reviewed that continuing dialysis requires her to go when scheduled. otherwise its ineffective and she would come to and from hospital frequently with worsening symptoms. She states she does not want recurrent hospitalizations. Reviewed transitioning to comfort based approach with goals of keeping patient comfortable and out of hospital. Patient not ready to discontinue dialysis completely. Patient's son Emile is agreeable but is worried that she will change her mind and continue refusing dialysis. Discussed resuscitation preferences. She confirms recent change of DNRCCA without intubation. Review of Systems Review of Systems All other systems reviewed & are negative unless noted below or in HPI [facility] Medical History (Updated 01/06/24 @ 15:09 by Tania Waddell DO) Tachy-chris syndrome Severe peripheral arterial disease Sacroiliitis Proteinuria Occult blood in stools Lumbosacral spondylosis Lumbar degenerative disc disease Left peroneal nerve palsy Iron deficiency anemia due to chronic blood loss Iron deficiency anemia Intestinal ulcer Essential hypertension Dyspnea Chronic pain CHF (congestive heart failure) Blood in stool Anticoagulated Anemia of chronic disease Anemia associated with chronic renal failure C. difficile colitis Hyperkalemia Acute diarrhea Supratherapeutic INR Acute GI bleeding Atrial fibrillation with RVR Acute hyperkalemia Leukocytosis Diarrhea Acute hyponatremia Hyponatremia GERD (gastroesophageal reflux disease) Atrial fibrillation, persistent Elevated troponin Hyperlipidemia GERD (gastroesophageal reflux disease) Neuropathy Spinal stenosis GERD (gastroesophageal reflux disease) Peripheral arterial disease History of cardioversion A-fib AVF (arteriovenous fistula) left arm Dialysis patient M-W-F @ [facility] [place] Benign hypertension with end-stage renal disease Hyperlipidemia Tricuspid regurgitation HTN (hypertension) ESRD (end stage renal disease) Surgical History S/P arteriovenous (AV) fistula creation History of tubal ligation History of orthopedic surgery denies any orthopedic surgeries Hx of hysterectomy partial Hx of cholecystectomy History of tonsillectomy and adenoidectomy Family History Daughter Drug abuse Sister Thyroid cancer Diabetes Sister Back problem Father Diabetes Myocardial infarction Brother Diabetes Mother Gastric ulcer Son Diabetes Brother Diabetes Legacy FamHx Relation: Brother(s) Hypertension Legacy FamHx Relation: Brother(s) Brother Hypertension Legacy FamHx Relation: Brother(s) Father Diabetes Heart disease Hypertension Mother Gastric ulcer Son Diabetes Sister Cancer Legacy FamHx Problem: Diagnosed with Cancer Social History Smoking Status: Former smoker Tobacco Type: cigarettes Substance Use Type: None Social History Comments: lives and cares for sisters mother in law Allergies & Medications Medications and Allergies Allergies Penicillins Allergy (Severe, Verified 12/19/23 12:21) Swelling of Lip/Tongue/Throat, anaphylaxis tuberculin,PPD,multi-puncture Allergy (Intermediate, Verified 12/19/23 12:21) Redness of Skin atorvastatin (From Lipitor) Allergy (Unknown, Verified 12/19/23 12:21) Cramping of the Muscles, bodyaches Home Medications bumetanide 1 mg tablet 1 mg PO QHS 11/17/19 [History Confirmed 01/05/24] rosuvastatin 10 mg tablet 10 mg PO DAILY 06/23/20 [History Confirmed 01/05/24] biotin 5,000 mcg disintegrating tablet 10,000 mcg PO DAILY 01/26/21 [History Confirmed 01/05/24] docusate sodium 100 mg capsule (Colace) 100 mg PO DAILY Constipation 01/26/21 [History Confirmed 01/05/24] acetaminophen 650 mg tablet,extended release 650 mg PO Q12H PRN Pain 03/06/22 [History Confirmed 01/05/24] midodrine 10 mg tablet 10 mg PO TID 10/26/23 [History Confirmed 01/05/24] diltiazem HCl 120 mg capsule,extended release 24 hr 120 mg PO DAILY #0 caps 10/30/23 [Rx Confirmed 01/05/24] midodrine 5 mg tablet 5 mg PO MOWEFR PRN dialysis #0 tabs 10/30/23 [Rx Confirmed 01/05/24] polyethylene glycol 3350 17 gram oral powder packet (Miralax) 17 g PO DAILY PRN constipation #14 ea10/30/23 [Rx Confirmed 01/05/24] B Complex-Vitamin C 1 tab PO DAILY 01/05/24 [History Confirmed 01/05/24] omeprazole 20 mg capsule,delayed release 20 mg PO DAILY 01/05/24 [History Confirmed 01/05/24] warfarin 1 mg tablet 0.5 mg PO HS 01/05/24 [History Confirmed 01/05/24] Active Medications Acetaminophen (Acetaminophen 325 Mg Tablet) 650 mg PO Q6HR PRN PRN Reason: Pain Scale 1 - 3 or fever Stop: 01/04/25 05:05 Atorvastatin Calcium (Atorvastatin 20 Mg Tablet) 10 mg PO DAILY CYNTHIA Stop: 01/05/25 08:59 Last Admin: 01/06/24 14:11 Dose: 10 mg Darbepoetin Herbie (Darbepoetin Herbie In Polysorbat 25 Mcg/Ml Vial) 25 mcg IV- PUSHWe@1000 CYNTHIA; Protocol Stop: 01/07/25 09:59 Diltiazem HCl (Diltiazem Cd.24hr 120 Mg Cap.Er.24h) 120 mg PO DAILY [facility] Stop: 01/05/25 13:59 Last Admin: 01/06/24 14:15 Dose: 120 mg Docusate Sodium (Docusate 100 Mg Capsule) 100 mg PO DAILY CYNTHIA Stop: 01/05/25 08:59 Last Admin: 01/06/24 14:10 Dose: 100 mg Sodium Chloride (0.9% Sodium Chloride 1,000 Ml) 1,000 mls @ 0 mls/hr MISCELLANE.Q0M PRN PRN Reason: Dialysis Stop: 01/04/25 08:29 Last Infusion: 01/06/24 11:28 Dose: Infused Midodrine (Midodrine 5 Mg Tablet) 5 mg PO PRN PRN PRN Reason: Dialysis Stop: 01/04/25 08:29 Last Admin: 01/05/24 09:40 Dose: 5 mg Midodrine (Midodrine 5 Mg Tablet) 10 mg PO TID.7A.12P.5P [facility] Stop: 01/04/25 16:59 Last Admin: 01/06/24 11:25 Dose: 10 mg Pantoprazole Sodium (Pantoprazole 40 Mg Tablet.Dr) 40 mg PO DAILY CYNTHIA Stop: 01/05/25 08:59 Last Admin: 01/06/24 14:10 Dose: 40 mg Polyethylene Glycol (Polyethylene Glycol 3350 17 Gm Powd.Pack) 17 gm PO DAILY PRN PRN Reason: constipation Stop: 01/04/25 14:16 Sodium Chloride (Sodium Chloride 0.9 % 10 Ml Syringe) 0 ml IV-PUSH PRN PRN PRN Reason: Flush Stop: 01/04/25 03:49 Last Admin: 01/05/24 04:05 Dose: 10 ml Sodium Chloride (Sodium Chloride 0.9 % 10 Ml Syringe) 0 ml IV-PUSH PRN PRN PRN Reason: Flush Stop: 01/04/25 08:29 Last Admin: 01/06/24 11:25 Dose: 10 ml Sodium Chloride (Sodium Chloride 0.9 % 10 Ml Syringe) 0 ml IV-PUSH PRN PRN PRN Reason: Flush Stop: 01/05/25 12:08 Vitamin B Complex/Folic Acid (B Complex W-C No.20/Folic Acid 1 Mg Capsule) 1 mgPO DAILY [facility] Stop: 01/05/25 08:59 Last Admin: 01/06/24 14:10 Dose: 1 mg Warfarin Sodium (Warfarin - Pharmacy Dosing) 1 each MISCELLANE ONCE PRN; Protocol PRN Reason: ZZ.Pharmacy Consult Stop: 01/04/25 15:16 Warfarin Sodium (Warfarin 1 Mg Tablet) 0.5 mg PO ONCE ONE Stop: 01/06/24 17:01 Exam Physical Exam Vital Signs: Temp Pulse Resp BP Pulse Ox O2 Del Method 97.7 F 102 H 16 106/57 L 91 L Room Air 01/06/24 13:30 01/06/24 13:47 01/06/24 13:47 01/06/24 13:47 01/06/24 13:47 01/06/24 13:47 Const General: cooperative, comfortable, not in acute distress and frail appearing Nutritional Appearance: average body habitus Orientation: alert, awake and oriented x3 Limitations: mental status not altered HEENT Head: normal to inspection Mouth: oral mucosae normal Teeth and gingiva: abnormal dentition Eyes Alignment and Position: abnormal alignment Neck Neck: normal visual inspection Resp Effort & Inspection: normal respiratory effort and not tachypneic Auscultation: clear to auscultation bilaterally, no rhonchi and no wheezes Cardio Rate: not tachycardic Rhythm: abnormal rhythm Heart Sounds: S1 normal and S2 normal GI Palpation: soft, not firm and no guarding Skin Wounds: wounds noted (right great toe) Neuro General: patient alert, patient awake and patient oriented x3 Cranial Nerves: CN's II-XII intact bilaterally Cognition: normal cognition Speech: speech normal Gait: gait abnormal Motor: strength abnormal Extrem General: abnormal gait and no edema Psych Appearance: grossly normal Mood: congruent mood Affect: normal affect Speech and Movement: speech and movement normal Attitude: cooperative Thought Process: normal Thought Content: normal Insight: insight good Judgment: judgment good Other: pleasant, cooperative, calm, laughs and made jokes Results - Palliative Care Labs 01/06/24 05:17 01/06/24 05:17 Labs: Laboratory Last Values Corrected WBC 8.5 X10E3/uL (3.8-11.6) 01/06/24 05:17 Uncorrected WBC Count 8.5 x10E3/uL (3.8-11.6) 01/06/24 05:17 RBC 4.02 X10E6/uL (3.60-5.00) 01/06/24 05:17 Hgb 12.0 g/dL (11.8-15.4) 01/06/24 05:17 Hct 36.4 % (34.0-46.4) 01/06/24 05:17 MCV 90.5 fl (80-100) 01/06/24 05:17 MCH 29.7 pg (24.7-34.3) 01/06/24 05:17 MCHC 32.9 g/dL (32.0-35.0) 01/06/24 05:17 RDW 17.6 % (11.9-15.3) H 01/06/24 05:17 Plt Count 267 x10E3/uL (150-450) 01/06/24 05:17 MPV 7.1 fl (6.3-10.7) 01/06/24 05:17 Neut % (Auto) 71.3 % (.) 01/06/24 05:17 Lymph % (Auto) 19.5 % (.) 01/06/24 05:17 Burnet % (Auto) 7.1 % (.) 01/06/24 05:17 Eos % (Auto) 1.5 % (.) 01/06/24 05:17 Baso % (Auto) 0.6 % (.) 01/06/24 05:17 Nucleat RBC Rel Count 0.1 /100 WBC (0-0.5) 01/06/24 05:17 Neut # (Auto) 6.0 x10E3/uL (1.8-7.7) 01/06/24 05:17 Lymph # (Auto) 1.7 x10E3/uL (1.00-4.8) 01/06/24 05:17 Burnet # (Auto) 0.6 x10E3/uL (0.0-0.8) 01/06/24 05:17 Eos # (Auto) 0.1 x10E3/uL (0.0-0.45) 01/06/24 05:17 Baso # (Auto) 0.1 x10E3/uL (0.0-0.2) 01/06/24 05:17 Monocyte Dist Width 20.38 % (0.00-20.00) H 01/05/24 03:38 PT 22.3 Seconds (9.0-12.9) H 01/06/24 05:17 INR 2.0 01/06/24 05:17 APTT 34.8 Seconds (25.1-36.5) 01/05/24 03:38 PHA Creatinine Clear 8.82 01/06/24 05:17 Sodium 137 mmol/L (136-145) 01/06/24 05:17 Potassium 4.0 mmol/L (3.5-5.1) D 01/06/24 05:17 Chloride 94 mmol/L (98-107) L 01/06/24 05:17 Carbon Dioxide 28.2 mmol/L (21.0-31.0) 01/06/24 05:17 Anion Gap 18.8 mEq/L (6.0-15.0) H 01/06/24 05:17 BUN 23 mg/dL (7-25) D 01/06/24 05:17 Creatinine 6.14 mg/dL (0.60-1.20) H D 01/06/24 05:17 Est GFR (CKD-EPI) 6.823 mL/Min 01/06/24 05:17 Glucose 78 mg/dL (70-100) 01/06/24 05:17 POC Glucose 84 mg/dl 01/06/24 06:46 POC Glucose Comment Glu2: cleaned meter 01/05/24 06:44 Calcium 9.0 mg/dL (8.6-10.3) 01/06/24 05:17 Phosphorus 7.2 mg/dL (2.5-4.5) H 01/05/24 03:38 Magnesium 2.3 mg/dL (1.9-2.7) 01/05/24 03:38 Total Bilirubin 0.7 mg/dl (0.3-1.0) 01/06/24 05:17 AST 20 U/L (13-39) 01/06/24 05:17 ALT 11 U/L (7-52) 01/06/24 05:17 Alkaline Phosphatase 86 U/L (34-104) 01/06/24 05:17 Total Creatine Kinase 29 U/L (30-223) L 01/05/24 03:38 Troponin I High Sens 62.1 pg/mL (0.0-15.0) H* 01/05/24 03:38 Total Protein 5.8 gm/dL (6.4-8.9) L 01/06/24 05:17 Albumin 3.2 gm/dL (3.5-5.7) L 01/06/24 05:17 Globulin 2.6 gm/dL 01/06/24 05:17 Albumin/Globulin Ratio 1.2 01/06/24 05:17 Assessment/Plan (1) ESRD (end stage renal disease): Code(s): N18.6 - End stage renal disease (2) Counseling regarding advance care planning and goals of care: Code(s): Z71.89 - Other specified counseling Plan Reviewed patient's overall condition and goals. She is not ready to stop dialysis. Discussed importance of going to dialysis routinely to avoid hospitalizations and worsening symptoms. She is agreeable to going. Reviewed alternative with comfort based approach. Encouraged patient to consider when she would decide to stop dialysis completely. Active listening and support provided to son Emile. Allquestions and concerns addressed. Resuscitation preferences DNRCCA without intubation. Documented By: Tania Waddell DO 01/06/24 142 Signed By: 01/06/24 1511 [facility]11-11-2024 Consult note Author Salinas Ortega [facility] Note Date/Time January 06, 2024 12:14pm [facility] [address] [place], [place] [id number] Cardiology Consult Note Signed Patient: Edita Costa MR# : [id number] : 1950 Acct:[id number] Age/Sex: 73 / F Adm Date: 4 Loc: 3T Room: [address] [place] [address] Type: ADM IN Attending Dr: Coreen Jaffe MD Copies to: MD Salinas Yun II, MD, FACC Coreen Jaffe MD~ Cardiology HPI History of Present Illness Consult Date: 01/06/24 Reason for Consult: Atrial fibrillation with RVR HPI: Ms. Costa is a 73 year old female who is being seen at request of the hospitalist for atrial fibrillation. Patient was seen by myself September 2023 forsimilar presentation. She has permanent atrial fibrillation and has been treated with anticoagulation and rate control. In the past she had cardioversion and was on antiarrhythmic therapy and had followed previously withDr. Quinetro. Lately she has been treated with rate control and anticoagulation. She has end-stage kidney disease and has been on dialysis but has missed at least 10 days of dialysis and presented with volume overload, pulmonary edema and atrial fibrillation with RVR. The patient also was found to be hyperkalemicwith potassium level of 6 mmol/L. Apparently her son talked her into resuming dialysis and she is willing to do so. She was given intravenous Cardizem which helped slow down the heart rate. She indicated she has been compliant taking her medications though. Her last echocardiogram September 2023 revealed ejection fraction 50-55% with dilated left atrium. She has no significant valvular heartdisease and has had no previous myocardial ischemia evaluation back with [facility]. She does have significant PAD and has been followed with vascular surgery with previous interventions. She does have significant orthostatic hypotension requiring treatment with midodrine. She is on warfarin and Cardizem for atrial fibrillation. Currently the heart rate is better controlled, INR is therapeutic. Potassium has normalized. The patient will be switched from IV Cardizem to oral Cardizem at the dose she was on at home 120 mg daily. Since the patient is in the hospital we can do what we have not done previously which is to assess for myocardial ischemia given her vascular disease. A Lexiscan MPIis recommended to be done and probably can do it as early as tomorrow. Review of Systems Review of Systems Review of systems: Denies any chest pain but had palpitations and dyspnea on presentation. Has hadno active bleeding and denies any syncope. Has had no falls or injuries. Denies any dysuria. She does have still small amount of urine that she produces. Other review of system was unremarkable. [facility] Medical History (Updated 01/06/24 @ 12:13 by Salinas Ortega MD) Tachy-chris syndrome Severe peripheral arterial disease Sacroiliitis Proteinuria Occult blood in stools Lumbosacral spondylosis Lumbar degenerative disc disease Left peroneal nerve palsy Iron deficiency anemia due to chronic blood loss Iron deficiency anemia Intestinal ulcer Essential hypertension Dyspnea Chronic pain CHF (congestive heart failure) Blood in stool Anticoagulated Anemia of chronic disease Anemia associated with chronic renal failure C. difficile colitis Hyperkalemia Acute diarrhea Supratherapeutic INR Acute GI bleeding Atrial fibrillation with RVR Acute hyperkalemia Leukocytosis Diarrhea Acute hyponatremia Hyponatremia GERD (gastroesophageal reflux disease) Atrial fibrillation, persistent Elevated troponin Hyperlipidemia GERD (gastroesophageal reflux disease) Neuropathy Spinal stenosis GERD (gastroesophageal reflux disease) Peripheral arterial disease History of cardioversion A-fib AVF (arteriovenous fistula) left arm Dialysis patient M-W-F @ [facility] [place] Benign hypertension with end-stage renal disease Hyperlipidemia Tricuspid regurgitation HTN (hypertension) ESRD (end stage renal disease) Surgical History S/P arteriovenous (AV) fistula creation History of tubal ligation History of orthopedic surgery denies any orthopedic surgeries Hx of hysterectomy partial Hx of cholecystectomy History of tonsillectomy and adenoidectomy Family History Daughter Drug abuse Sister Thyroid cancer Diabetes Sister Back problem Father Diabetes Myocardial infarction Brother Diabetes Mother Gastric ulcer Son Diabetes Brother Diabetes Legacy FamHx Relation: Brother(s) Hypertension Legacy FamHx Relation: Brother(s) Brother Hypertension Legacy FamHx Relation: Brother(s) Father Diabetes Heart disease Hypertension Mother Gastric ulcer Son Diabetes Sister Cancer Legacy FamHx Problem: Diagnosed with Cancer Social History Smoking Status: Former smoker Tobacco Type: cigarettes Substance Use Type: None Social History Comments: lives and cares for sisters mother in law Meds Medications and Allergies Allergies Penicillins Allergy (Severe, Verified 12/19/23 12:21) Swelling of Lip/Tongue/Throat, anaphylaxis tuberculin,PPD,multi-puncture Allergy (Intermediate, Verified 12/19/23 12:21) Redness of Skin atorvastatin (From Lipitor) Allergy (Unknown, Verified 12/19/23 12:21) Cramping of the Muscles, bodyaches Home Medications bumetanide 1 mg tablet 1 mg PO QHS 11/17/19 [History Confirmed 01/05/24] rosuvastatin 10 mg tablet 10 mg PO DAILY 06/23/20 [History Confirmed 01/05/24] biotin 5,000 mcg disintegrating tablet 10,000 mcg PO DAILY 01/26/21 [History Confirmed 01/05/24] docusate sodium 100 mg capsule (Colace) 100 mg PO DAILY Constipation 01/26/21 [History Confirmed 01/05/24] acetaminophen 650 mg tablet,extended release 650 mg PO Q12H PRN Pain 03/06/22 [History Confirmed 01/05/24] midodrine 10 mg tablet 10 mg PO TID 10/26/23 [History Confirmed 01/05/24] diltiazem HCl 120 mg capsule,extended release 24 hr 120 mg PO DAILY #0 caps 10/30/23 [Rx Confirmed 01/05/24] midodrine 5 mg tablet 5 mg PO MOWEFR PRN dialysis #0 tabs 10/30/23 [Rx Confirmed 01/05/24] polyethylene glycol 3350 17 gram oral powder packet (Miralax) 17 g PO DAILY PRN constipation #14 ea 10/30/23 [Rx Confirmed 01/05/24] B Complex-Vitamin C 1 tab PO DAILY 01/05/24 [History Confirmed 01/05/24] omeprazole 20 mg capsule,delayed release 20 mg PO DAILY 01/05/24 [History Confirmed 01/05/24] warfarin 1 mg tablet 0.5 mg PO HS 01/05/24 [History Confirmed 01/05/24] Exam Physical Exam Vital Signs: Temp Pulse Resp BP Pulse Ox O2 Del Method 97.9 F 70 18 86/52 L 95 Room Air 01/06/24 09:18 01/06/24 11:30 01/06/24 09:18 01/06/24 11:30 01/06/24 09:18 01/06/24 09:18 Const General: cooperative, comfortable and no acute distress Nutritional Appearance: overweight Orientation: alert, awake and oriented x3 HEENT Head: normocephalic and atraumatic Ears: hearing grossly normal bilaterally Nose: external nose normal Face and sinus: normal facial exam Eyes General: dysmorphic (Patient has xanthelasma on the left eye) Conjunctivae: conjunctivae normal Pupils: PERRL Neck Neck: trachea midline and supple Neck mass: No Thyroid: thyroid normal Carotids: normal carotid upstroke Resp Effort & Inspection: normal respiratory effort Auscultation: clear to auscultation bilaterally Cardio Jugular venous pressure: no JVD Palpation: normal PMI Rate: regular rate Rhythm: abnormal rhythm irregularly irregular Heart Sounds: S1 normal and S2 normal GI Inspection: normal to inspection Palpation: soft and no hepatosplenomegaly Auscultation: normal bowel sounds Extrem Other: Atrophy changes in her toes bilaterally Results - Cardiology Labs 01/06/24 05:17 01/06/24 05:17 Lab results: Cardiac Enzymes 01/06/24 Range/Units 05:17 AST 20 (13-39) U/L CBC 01/06/24 Range/Units 05:17 RBC 4.02 (3.60-5.00) X10E6/uL Hgb 12.0 (11.8-15.4) g/dL Hct 36.4 (34.0-46.4) % Plt Count 267 (150-450) x10E3/uL Neut # (Auto) 6.0 (1.8-7.7) x10E3/uL Lymph # (Auto) 1.7 (1.00-4.8) x10E3/uL Burnet # (Auto) 0.6 (0.0-0.8) x10E3/uL Eos # (Auto) 0.1 (0.0-0.45) x10E3/uL Baso # (Auto) 0.1 (0.0-0.2) x10E3/uL Comprehensive Metabolic Panel 01/06/24 Range/Units 05:17 Sodium 137 (136-145) mmol/L Potassium 4.0 D (3.5-5.1) mmol/L Chloride 94 L (98-107) mmol/L Carbon Dioxide 28.2 (21.0-31.0) mmol/L BUN 23 D (7-25) mg/dL Creatinine 6.14 H D (0.60-1.20) mg/dL Glucose 78 (70-100) mg/dL Calcium 9.0 (8.6-10.3) mg/dL AST 20 (13-39) U/L ALT 11 (7-52) U/L Alkaline Phosphatase 86 (34-104) U/L Total Protein 5.8 L (6.4-8.9) gm/dL Albumin 3.2 L (3.5-5.7) gm/dL Intake and Output 01/05/24 01/06/24 01/06/24 23:59 07:59 15:59 Intake Total 240 / 940 100 / 600 500 / 600 Output Total 2003 0 / 0 Balance 240 / -1064 100 / 600 500 / 600 Intake: IV 100 / 600 500 / 600 dilTIAZem 100 MG -*NaCl* 100 mg 100 / 100 In 100 ml @ 10 MG/HR 10 mls/hr IV .Q10H CYNTHIA Rx#:[id number] Sodium Chloride 0.9% 1,000 ml 1 500 / 500 ,000 ml @ As Directed MISCELLANE .Q0M PRN Rx#: [id number] Oral 240 / 240 0 / 0 Output: Urine 0 / 0 0 / 0 Other: # Incontinent Bowel Movements 1 Weight 77.2 kg Date of Last Bowel Movement 01/04/24 Patient Weight 01/06/24 23:59 Weight 77.2 kg Lab 01/05/24 01/06/24 03:38 05:17 PT 19.7 H 22.3 H INR 1.7 2.0 APTT 34.8 A&P - Cardiology (1) Atrial fibrillation with rapid ventricular response: Assessment/Problem Details: Aggravated by missing dialysis and volume overload, improved Plan: Continue warfarin, resume oral Cardizem and discontinue intravenous Cardizem Code(s): I48.91 - Unspecified atrial fibrillation (2) Volume overload: Assessment/Problem Details: Responded to dialysis Plan: Continue dialysis Code(s): E87.70 - Fluid overload, unspecified (3) Hyperkalemia: Assessment/Problem Details: Caused by missing dialysis, resolved Plan: Continue dialysis Code(s): E87.5 - Hyperkalemia (4) ESRD (end stage renal disease): Plan: Continue dialysis monitored by nephrology Code(s): N18.6 - End stage renal disease (5) Orthostatic hypotension: Plan: Continue midodrine Code(s): I95.1 - Orthostatic hypotension (6) Peripheral arterial disease: Plan: The patient could have underlying coronary artery disease for which Lexiscan Cardiolite stress test is ordered Code(s): I73.9 - Peripheral vascular disease, unspecified Documented By: Salinas Ortega MD, [facility] 4 1203 Signed By: <Electronically signed by MD SHAISTA Ortega> 01/06/24 1214 [facility] Work Phone: 1(668) 844-779211-11-2024 Progress note Author [facility] Note Date/Time January 06, 2024 11:17am [facility] [address] [place] [address] Nephrology Progress Note Signed Patient: Edita Costa MR# : [id number] : 1950 Acct:[id number] Age/Sex: 73 / F Adm Date: 4 Loc: Room: [address] [place] [address] Type: ADM IN Attending Dr: Coreen Jaffe MD Copies to: ~ Date of Service: 01/06/2024 Subjective Subjective Narrative: This is a 73-year-old female with medical history of ESRD, A-fib, GERD, HTN, DM,ESRD and HLD was presented to the emergency room for shortness of breath. She was found to have A-fib with RVR and was started on Cardizem drip after Cardizembolus. Missed multiple hemodialysis treatments as she was refusing to come to the dialysis. She was also found to have hyperkalemia and was treated medicallywith insulin , D 50 and Lokelma. Her chest x-ray showed finding for fluid overload. Nephrology was consulted for emergent hemodialysis due to the fluid overload and hyperkalemia. 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 Patient currently resides at the correction and has been refusing to go for dialysis. She met with the hospice on 12/30/2023 and decided to continue dialysis on the request of the son. Interval history: Patient had urgent hemodialysis yesterday with 1K bath, 3 L ultrafiltration as tolerated however blood pressure dropped during dialysis requiring midodrine. Patient still has A-fib on Cardizem drip. Heart rate did improve 80/min. Bloodpressure 101/58. Patient is awake and she denies shortness of breath. No nausea or vomiting. Potassium did improve down to 4 mmol/L. Pulse ox 95% in room air. Exam Physical Exam Vital Signs: Temp Pulse Resp BP Pulse Ox O2 Del Method 36.6 C 80 18 101/58 L 95 Room Air 01/06/24 09:18 01/06/24 10:28 01/06/24 09:18 01/06/24 10:28 01/06/24 09:18 01/06/24 09:18 Narrative: General: Awake alert, no acute distress HEENT: Mild pallor normocephalic, moist mucous membranes Neck: supple with no JVD CVS: Irregular rate and rhythm, no murmurs or gallops Respiratory: clear to auscultation bilaterally, no wheezing or crackles, symmetric expansion GI: soft, nondistended, nontender, positive bowel sounds with no organomegaly Extremity: moves all extremities, no restrictions of movements, no calf tenderness Neuro: AOx3,Moves all extremities in all planes of motion. Skin: intact no rashes or lesions Vascular access: Left arm AV fistula with good thrill Objective Intake and Output I&O: Intake & Output 01/03/24 01/04/24 01/05/24 01/06/24 23:59 23:59 23:59 23:59 Intake Total 940 / 940 100 / 100 Output Total 2003 0 / 0 Balance -1064 / -1064 100 / 100 Weight 76.3 kg 77.2 kg Meds and Allergies Meds: Active Medications Acetaminophen (Acetaminophen 325 Mg Tablet) 650 mg PO Q6HR PRN PRN Reason: Pain Scale 1 - 3 or fever Stop: 01/04/25 05:05 Atorvastatin Calcium (Atorvastatin 20 Mg Tablet) 10 mg PO DAILY [facility] Stop: 01/05/25 08:59 Darbepoetin Herbie (Darbepoetin Herbie In Polysorbat 25 Mcg/Ml Vial) 25 mcg IV-PUSHWe@1000 CYNTHIA; Protocol Stop: 01/07/25 09:59 Docusate Sodium (Docusate 100 Mg Capsule) 100 mg PO DAILY [facility] Stop: 01/05/25 08:59 Diltiazem HCl (Cardizem) 100 mg in 100 mls @ 10 mls/hr IV .Q10H CYNTHIA; Protocol Stop: 01/04/25 03:44 Last Admin: 01/06/24 09:48 Dose: Not Given Sodium Chloride (0.9% Sodium Chloride 1,000 Ml) 1,000 mls @ 0 mls/hr MISCELLANE.Q0M PRN PRN Reason: Dialysis Stop: 01/04/25 08:29 Last Infusion: 01/05/24 08:54 Dose: Infused Midodrine (Midodrine 5 Mg Tablet) 5 mg PO PRN PRN PRN Reason: Dialysis Stop: 01/04/25 08:29 Last Admin: 01/05/24 09:40 Dose: 5 mg Midodrine (Midodrine 5 Mg Tablet) 10 mg PO TID.7A.12P.5P [facility]IA Stop: 01/04/25 16:59 Last Admin: 01/06/24 06:05 Dose: 10 mg Pantoprazole Sodium (Pantoprazole 40 Mg Tablet.Dr) 40 mg PO DAILY [facility] Stop: 01/05/25 08:59 Polyethylene Glycol (Polyethylene Glycol 3350 17 Gm Powd.Pack) 17 gm PO DAILY PRN PRN Reason: constipation Stop: 01/04/25 14:16 Sodium Chloride (Sodium Chloride 0.9 % 10 Ml Syringe) 0 ml IV-PUSH PRN PRN PRN Reason: Flush Stop: 01/04/25 03:49 Last Admin: 01/05/24 04:05 Dose: 10 ml Sodium Chloride (Sodium Chloride 0.9 % 10 Ml Syringe) 0 ml IV-PUSH PRN PRN PRN Reason: Flush Stop: 01/04/25 08:29 Last Admin: 01/05/24 08:54 Dose: 10 ml Vitamin B Complex/Folic Acid (B Complex W-C No.20/Folic Acid 1 Mg Capsule) 1 mgPO DAILY [facility] Stop: 01/05/25 08:59 Warfarin Sodium (Warfarin - Pharmacy Dosing) 1 each MISCELLANE ONCE PRN; Protocol PRN Reason: ZZ.Pharmacy Consult Stop: 01/04/25 15:16 Allergies Penicillins Allergy (Severe, Verified 12/19/23 12:21) Swelling of Lip/Tongue/Throat, anaphylaxis tuberculin,PPD,multi-puncture Allergy (Intermediate, Verified 12/19/23 12:21) Redness of Skin atorvastatin (From Lipitor) Allergy (Unknown, Verified 12/19/23 12:21) Cramping of the Muscles, bodyaches Results - Nephrology Labs 01/06/24 05:17 01/06/24 05:17 Labs: 01/06/24 05:17 BUN 23 D Creatinine 6.14 H D Albumin 3.2 L Radiology Impressions Impressions - last 24 hours: Impressions Chest X-Ray 01/05/24 03:34 IMPRESSION: Findings suggest congestive heart failure with pulmonary edema and bilateral pleural effusions. This is worse when compared to the prior exam. Impression dictated by: Hitesh Pat M.D.01/05/2024 12:01 PM Dictation Location: [place] [address] Any impression(s) listed above is documentation that was entered by the reading physician into a diagnostic report(s) for Edita Costa. I have reviewed the report(s) and am incorporating any findings in the treatment plan of this patient where applicable. 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 She is supposed to have the dialysis on MWF schedule but has been missing her dialysis. (2) Hyperkalemia: Assessment/Problem Details: She has hyperkalemia due to the missing dialysis. (3) Atrial fibrillation with rapid ventricular response: Assessment/Problem Details: Patient presented with shortness of breath and was found to have A-fib with RVR. She is currently on Cardizem drip. She takes Coumadin for CVA prophylaxis. (4) Acute on chronic diastolic (congestive) heart failure: Assessment/Problem Details: Patient presented with shortness of breath and was found to have a CHF on chest x-ray due to the missing dialysis and A-fib with RVR. (5) Secondary hyperparathyroidism: Assessment/Problem Details: She has secondary hyperparathyroidism due to the ESRD currently receives IV Zemplar with dialysis. (6) Anemia in chronic kidney disease: Assessment/Problem Details: Her hemoglobin is within the goal. She received Aranesp with dialysis that is being adjusted to keep Hbg 10-12 gm/dl (7) Missed dialysis: Assessment/Problem Details: She has been missing her dialysis quite often and only goes once a week. Plan * Pt had urgent HD yesterday. Will give an additional HD today for 3.5 hrs, 2K and 3 L UF as tolerated * Pt on Warfarin with INR 2.0. No heparin will be given with dialysis * Will continue midodrine intradialytic hypotension. * Hold Aranesp 25 mcg once weekly with dialysis till Hbg < 11 gm/dl * Patient was educated about the importance of the dialysis. * Monitor CBC and renal function daily. Documented By: Rayna Hoang MD 01/06/24 110 Signed By: <Electronically signed by MD Rayna Hoang> 01/06/24 1112 [facility] Work Phone: 1(267) 699-801111-11-2024 [place] [id number] Cardiology Consult Note Signed Patient: Edita Costa MR# : [id number] : 1950 Acct:[id number] Age/Sex: 73 / F Adm Date: 4 Loc: Room: [address] [place] [address] Type: ADM IN Attending Dr: Coreen Jaffe MD Copies to: MD Salinas Yun II, MD, [facility] Coreen Jaffe MD~ Cardiology HPI History of Present Illness Consult Date: 01/06/24 Reason for Consult: Atrial fibrillation with RVR HPI: Ms. Costa is a 73 year old female who is being seen at request of the hospitalist for atrial fibrillation. Patient was seen by myself September 2023 forsimilar presentation. She has permanent atrialfibrillation and has been treated with anticoagulation and rate control. In the past she had cardioversion and was on antiarrhythmic therapy and had followed previously withDr. Quintero. Lately she has been treated with rate control and anticoagulation. She has end- stage kidney disease and has been on dialysis but has missed at least 10 days of dialysis and presented with volume overload, pulmonary edema and atrial fibrillation with RVR. The patient also was found to be hyperkalemicwith potassium level of 6 mmol/L. Apparently her son talked her into resuming dialysis and she is willing to do so. She was given intravenous Cardizem which helped slow down the heart rate. She indicated she has been compliant taking her medications though. Her last echocardiogram September 2023 revealed ejection fr action 50-55% with dilated left atrium. She has no significant valvular heartdisease and has had noprevious myocardial ischemia evaluation back with [facility]. She does have significant PAD and has been followed with vascular surgery with previous interventions. She does have significant orthostatic hypotension requiring treatment with midodrine. She is on warfarin and Cardizem for atrial fibrillation. Currently the heart rate is better controlled, INR is therapeutic. Potassium has normalized. The patient will be switched from IV Cardizem to oral Cardizem at the dose she was on at home 120 mg daily. Since the patient is in the hospital we can do what we have not done previously which is to assess for myocardial ischemia given her vascular disease. A Lexiscan MPIis recommended to be done and probably can do it as early as tomorrow. Review of Systems Review of Systems Review of systems: Denies any chest pain but had palpitations and dyspnea on presentation. Has hadno active bleeding and denies any syncope. Has had no falls or injuries. Denies any dysuria. She does have still small amount of urine that she produces. Other review of system was unremarkable. [facility] Medical History (Updated 01/06/24 @ 12:13 by Salinas Ortega MD) Tachy-chris syndrome Severe peripheral arterial disease Sacroiliitis Proteinuria Occult blood in stools Lumbosacral spondylosis Lumbar degenerative disc disease Left peroneal nerve palsy Iron deficiency anemia due to chronic blood loss Iron deficiency anemia Intestinal ulcer Essential hypertension Dyspnea Chronic pain CHF (congestive heart failure) Blood in stool Anticoagulated Anemia of chronic disease Anemia associated with chronic renal failure C. difficile colitis Hyperkalemia Acute diarrhea Supratherapeutic INR Acute GI bleeding Atrial fibrillation with RVR Acute hyperkalemia Leukocytosis Diarrhea Acute hyponatremia Hyponatremia GERD (gastroesophageal reflux disease) Atrial fibrillation, persistent Elevated troponin Hyperlipidemia GERD (gastroesophageal reflux disease) Neuropathy Spinal stenosis GERD (gastroesophageal reflux disease) Peripheral arterial disease History of cardioversion A-fib AVF (arteriovenous fistula) left arm Dialysis patient M-W-F @ [facility] Benign hypertension with end-stage renal disease Hyperlipidemia Tricuspid regurgitation HTN (hypertension) ESRD (end stage renal disease) Surgical History S/P arteriovenous (AV) fistula creation History of tubal ligation History of orthopedic surgery denies any orthopedic surgeries Hx of hysterectomy partial Hx of cholecystectomy History of tonsillectomy and adenoidectomy Family History Daughter Drug abuse Sister Thyroid cancer Diabetes Sister Back problem Father Diabetes Myocardial infarction Brother Diabetes Mother Gastric ulcer Son Diabetes Brother Diabetes Legacy FamHx Relation: Brother(s) Hypertension Legacy FamHx Relation: Brother(s) Brother Hypertension Legacy FamHx Relation: Brother(s) Father Diabetes Heart disease Hypertension Mother Gastric ulcer Son Diabetes Sister Cancer Legacy FamHx Problem: Diagnosed with Cancer Social History Smoking Status: Former smoker Tobacco Type: cigarettes Substance Use Type: None Social History Comments: lives and cares for sisters mother in law Meds Medications and Allergies Allergies Penicillins Allergy (Severe, Verified 12/19/23 12:21) Swelling of Lip/Tongue/Throat, anaphylaxis tuberculin,PPD,multi-puncture Allergy (Intermediate, Verified 12/19/23 12:21) Redness of Skin atorvastatin (From Lipitor) Allergy (Unknown, Verified 12/19/23 12:21) Cramping of the Muscles, bodyaches Home Medications bumetanide 1 mg tablet 1 mg PO QHS 11/17/19 [History Confirmed 01/05/24] rosuvastatin 10 mg tablet 10 mg PO DAILY 06/23/20 [History Confirmed 01/05/24] biotin 5,000 mcg disintegrating tablet 10,000 mcg PO DAILY 01/26/21 [History Confirmed 01/05/24] docusate sodium 100 mg capsule (Colace) 100 mg PO DAILY Constipation 01/26/21 [History Confirmed 01/05/24] acetaminophen 650 mg tablet,extended release 650 mg PO Q12H PRN Pain 03/06/22 [History Confirmed 01/05/24] midodrine 10 mg tablet 10 mg PO TID 10/26/23 [History Confirmed 01/05/24] diltiazem HCl 120 mg capsule,extended release 24 hr 120 mg PO DAILY #0 caps 10/30/23 [Rx Confirmed 01/05/24] midodrine 5 mg tablet 5 mg PO MOWEFR PRN dialysis #0 tabs 10/30/23 [Rx Confirmed 01/05/24] polyethylene glycol 3350 17 gram oral powder packet (Miralax) 17 g PO DAILY PRN constipation #14 ea10/30/23 [Rx Confirmed 01/05/24] B Complex-Vitamin C 1 tab PO DAILY 01/05/24 [History Confirmed 01/05/24] omeprazole 20 mg capsule,delayed release 20 mg PO DAILY 01/05/24 [History Confirmed 01/05/24] warfarin 1 mg tablet 0.5 mg PO HS 01/05/24 [History Confirmed 01/05/24] Exam Physical Exam Vital Signs: Temp Pulse Resp BP Pulse Ox O2 Del Method 97.9 F 70 18 86/52 L 95 Room Air 01/06/24 09:18 01/06/24 11:30 01/06/24 09:18 01/06/24 11:30 01/06/24 09:18 01/06/24 09:18 Const General: cooperative, comfortable and no acute distress Nutritional Appearance: overweight Orientation: alert, awake and oriented x3 HEENT Head: normocephalic and atraumatic Ears: hearing grossly normal bilaterally Nose: external nose normal Face and sinus: normal facial exam Eyes General: dysmorphic (Patient has xanthelasma on the left eye) Conjunctivae: conjunctivae normal Pupils: PERRL Neck Neck: trachea midline and supple Neck mass: No Thyroid: thyroid normal Carotids: normal carotid upstroke Resp Effort & Inspection: normal respiratory effort Auscultation: clear to auscultation bilaterally Cardio Jugular venous pressure: no JVD Palpation: normal PMI Rate: regular rate Rhythm: abnormal rhythm irregularly irregular Heart Sounds: S1 normal and S2 normal GI Inspection: normal to inspection Palpation: soft and no hepatosplenomegaly Auscultation: normal bowel sounds Extrem Other: Atrophy changes in her toes bilaterally Results - Cardiology Labs 01/06/24 05:17 01/06/24 05:17 Lab results: Cardiac Enzymes 01/06/24 Range/Units 05:17 AST 20 (13-39) U/L CBC 01/06/24 Range/Units 05:17 RBC 4.02 (3.60-5.00) X10E6/uL Hgb 12.0 (11.8-15.4) g/dL Hct 36.4 (34.0-46.4) % Plt Count 267 (150-450) x10E3/uL Neut # (Auto) 6.0 (1.8-7.7) x10E3/uL Lymph # (Auto) 1.7 (1.00-4.8) x10E3/uL [place]et # (Auto) 0.6 (0.0-0.8) x10E3/uL Eos # (Auto) 0.1 (0.0-0.45) x10E3/uL Baso # (Auto) 0.1 (0.0-0.2) x10E3/uL Comprehensive Metabolic Panel 01/06/24 Range/Units 05:17 Sodium 137 (136-145) mmol/L Potassium 4.0 D (3.5-5.1) mmol/L Chloride 94 L (98-107) mmol/L Carbon Dioxide 28.2 (21.0-31.0) mmol/L BUN 23 D (7-25) mg/dL Creatinine 6.14 H D (0.60-1.20) mg/dL Glucose 78 (70-100) mg/dL Calcium 9.0 (8.6-10.3) mg/dL AST 20 (13-39) U/L ALT 11 (7-52) U/L Alkaline Phosphatase 86 (34-104) U/L Total Protein 5.8 L (6.4-8.9) gm/dL Albumin 3.2 L (3.5-5.7) gm/dL Intake and Output 01/05/24 01/06/24 01/06/24 23:59 07:59 15:59 Intake Total 240 / 940 100 / 600 500 / 600 Output Total 2003 0 / 0 Balance 240 / -1064 100 / 600 500 / 600 Intake: IV 100 / 600 500 / 600 dilTIAZem 100 MG -*NaCl* 100 mg 100 / 100 In 100 ml @ 10 MG/HR 10 mls/hr IV .Q10H [facility]NTHIA Rx#:[id number] Sodium Chloride 0.9% 1,000 ml 1 500 / 500 ,000 ml @ As Directed MISCELLANE .Q0M PRN Rx#: [id number] Oral 240 / 240 0 / 0 Output: Urine 0 / 0 0 / 0 Other: # Incontinent Bowel Movements 1 Weight 77.2 kg Date of Last Bowel Movement 01/04/24 Patient Weight 01/06/24 23:59 Weight 77.2 kg Lab 01/05/24 01/06/24 03:38 05:17 PT 19.7 H 22.3 H INR 1.7 2.0 APTT 34.8 A&P - Cardiology (1) Atrial fibrillation with rapid ventricular response: Assessment/Problem Details: Aggravated by missing dialysis and volume overload, improved Plan: Continue warfarin, resume oral Cardizem and discontinue intravenous Cardizem Code(s): I48.91 - Unspecified atrial fibrillation (2) Volume overload: Assessment/Problem Details: Responded to dialysis Plan: Continue dialysis Code(s): E87.70 - Fluid overload, unspecified (3) Hyperkalemia: Assessment/Problem Details: Caused by missing dialysis, resolved Plan: Continue dialysis Code(s): E87.5 - Hyperkalemia (4) ESRD (end stage renal disease): Plan: Continue dialysis monitored by nephrology Code(s): N18.6 - End stage renal disease (5) Orthostatic hypotension: Plan: Continue midodrine Code(s): I95.1 - Orthostatic hypotension (6) Peripheral arterial disease: Plan: The patient could have underlying coronary artery disease for which Lexiscan Cardiolite stress testis ordered Code(s): I73.9 - Peripheral vascular disease, unspecified Documented By: Salinas Ortega MD, [facility] 4 1203 Signed By: 01/06/[address] [place], [place] [id number] [place] [address] Nephrology Progress Note Signed Patient: Edita Costa MR# : [id number] : 1950 Acct:[id number] Age/Sex: 73 / F Adm Date: 4 Loc: Room: [address] [place] [address] Type: ADM IN Attending Dr: Coreen Jaffe MD Copies to: ~ Date of Service: 01/06/2024 Subjective Subjective Narrative: This is a 73-year-old female with medical history of ESRD, A-fib, GERD, HTN, DM,ESRD and HLD was presented to the emergency room for shortness of breath. She was found to have A-fib with RVR and was started on Cardizem drip after Cardizembolus. Missed multiple hemodialysis treatments as she was refusing to come to the dialysis. She was also found to have hyperkalemia and was treated medicallywithinsulin , D 50 and Lokelma. Her chest x-ray showed finding for fluid overload. Nephrology was consulted for emergent hemodialysis due to the fluid overload and hyperkalemia. 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 Patient currently resides at the correction and has been refusing to go for dialysis. She met with the hospice on 12/30/2023 and decided to continue dialysis on the request of the son. Interval history: Patient had urgent hemodialysis yesterday with 1K bath, 3 L ultrafiltration as tolerated however blood pressure dropped during dialysis requiring midodrine. Patient still has A-fib on Cardizem drip. Heart rate did improve 80/min. Bloodpressure 101/58. Patient is awake and she denies shortness of breath. No nausea or vomiting. Potassium did improve down to 4 mmol/L. Pulse ox 95% in room air. Exam Physical Exam Vital Signs: Temp Pulse Resp BP Pulse Ox O2 Del Method 36.6 C 80 18 101/58 L 95 Room Air 01/06/24 09:18 01/06/24 10:28 01/06/24 09:18 01/06/24 10:28 01/06/24 09:18 01/06/24 09:18 Narrative: General: Awake alert, no acute distress HEENT: Mild pallor normocephalic, moist mucous membranes Neck: supple with no JVD CVS: Irregular rate and rhythm, no murmurs or gallops Respiratory: clear to auscultation bilaterally, no wheezing or crackles, symmetric expansion GI: soft, nondistended, nontender, positive bowel sounds with no organomegaly Extremity: moves all extremities, no restrictions of movements, no calf tenderness Neuro: AOx3,Moves all extremities in all planes of motion. Skin: intact no rashes or lesions Vascular access: Left arm AV fistula with good thrill Objective Intake and Output I&O: Intake & Output 01/03/24 01/04/24 01/05/24 01/06/24 23:59 23:59 23:59 23:59 Intake Total 940 / 940 100 / 100 Output Total 2003 0 / 0 Balance -1064 / -1064 100 / 100 Weight 76.3 kg 77.2 kg Meds and Allergies Meds: Active Medications Acetaminophen (Acetaminophen 325 Mg Tablet) 650 mg PO Q6HR PRN PRN Reason: Pain Scale 1 - 3 or fever Stop: 01/04/25 05:05 Atorvastatin Calcium (Atorvastatin 20 Mg Tablet) 10 mg PO DAILY [facility] Stop: 01/05/25 08:59 Darbepoetin Herbie (Darbepoetin Herbie In Polysorbat 25 Mcg/Ml Vial) 25 mcg IV- PUSHWe@1000 [facility]; Protocol Stop: 01/07/25 09:59 Docusate Sodium (Docusate 100 Mg Capsule) 100 mg PO DAILY [facility] Stop: 01/05/25 08:59 Diltiazem HCl (Cardizem) 100 mg in 100 mls @ 10 mls/hr IV .Q10H [facility]; Protocol Stop: 01/04/25 03:44 Last Admin: 01/06/24 09:48 Dose: Not Given Sodium Chloride (0.9% Sodium Chloride 1,000 Ml) 1,000 mls @ 0 mls/hr MISCELLANE.Q0M PRN PRN Reason: Dialysis Stop: 01/04/25 08:29 Last Infusion: 01/05/24 08:54 Dose: Infused Midodrine (Midodrine 5 Mg Tablet) 5 mg PO PRN PRN PRN Reason: Dialysis Stop: 01/04/25 08:29 Last Admin: 01/05/24 09:40 Dose: 5 mg Midodrine (Midodrine 5 Mg Tablet) 10 mg PO TID.7A.12P.5P [facility] Stop: 01/04/25 16:59 Last Admin: 01/06/24 06:05 Dose: 10 mg Pantoprazole Sodium (Pantoprazole 40 Mg Tablet.Dr) 40 mg PO DAILY [facility] Stop: 01/05/25 08:59 Polyethylene Glycol (Polyethylene Glycol 3350 17 Gm Powd.Pack) 17 gm PO DAILY PRN PRN Reason: constipation Stop: 01/04/25 14:16 Sodium Chloride (Sodium Chloride 0.9 % 10 Ml Syringe) 0 ml IV-PUSH PRN PRN PRN Reason: Flush Stop: 01/04/25 03:49 Last Admin: 01/05/24 04:05 Dose: 10 ml Sodium Chloride (Sodium Chloride 0.9 % 10 Ml Syringe) 0 ml IV-PUSH PRN PRN PRN Reason: Flush Stop: 01/04/25 08:29 Last Admin: 01/05/24 08:54 Dose: 10 ml Vitamin B Complex/Folic Acid (B Complex W-C No.20/Folic Acid 1 Mg Capsule) 1 mgPO DAILY [facility] Stop: 01/05/25 08:59 Warfarin Sodium (Warfarin - Pharmacy Dosing) 1 each MISCELLANE ONCE PRN; Protocol PRN Reason: ZZ.Pharmacy Consult Stop: 01/04/25 15:16 Allergies Penicillins Allergy (Severe, Verified 12/19/23 12:21) Swelling of Lip/Tongue/Throat, anaphylaxis tuberculin,PPD,multi-puncture Allergy (Intermediate, Verified 12/19/23 12:21) Redness of Skin atorvastatin (From Lipitor) Allergy (Unknown, Verified 12/19/23 12:21) Cramping of the Muscles, bodyaches Results - Nephrology Labs 01/06/24 05:17 01/06/24 05:17 Labs: 01/06/24 05:17 BUN 23 D Creatinine 6.14 H D Albumin 3.2 L Radiology Impressions Impressions - last 24 hours: Impressions Chest X-Ray 01/05/24 03:34 IMPRESSION: Findings suggest congestive heart failure with pulmonary edema and bilateral pleural effusions. This is worse when compared to the prior exam. Impression dictated by: Hitesh Pat M.D.01/05/2024 12:01 PM Dictation Location: [place] [address] Any impression(s) listed above is documentation that was entered by the reading physician into a diagnostic report(s) for Edita Costa. I have reviewed the report(s) and am incorporating any findings in the treatment plan of this patient where applicable. 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 She is supposed to have the dialysis on MWF schedule but has been missing her dialysis. (2) Hyperkalemia: Assessment/Problem Details: She has hyperkalemia due to the missing dialysis. (3) Atrial fibrillation with rapid ventricular response: Assessment/Problem Details: Patient presented with shortness of breath and was found to have A-fib with RVR. She is currently on Cardizem drip. She takes Coumadin for CVA prophylaxis. (4) Acute on chronic diastolic (congestive) heart failure: Assessment/Problem Details: Patient presented with shortness of breath and was found to have a CHF on chest x-ray due to the missing dialysis and A-fib with RVR. (5) Secondary hyperparathyroidism: Assessment/Problem Details: She has secondary hyperparathyroidism due to the ESRD currently receives IV Zemplar with dialysis. (6) Anemia in chronic kidney disease: Assessment/Problem Details: Her hemoglobin is within the goal. She received Aranesp with dialysis that is being adjusted to keep Hbg 10-12 gm/dl (7) Missed dialysis: Assessment/Problem Details: She has been missing her dialysis quite often and only goes once a week. Plan * Pt had urgent HD yesterday. Will give an additional HD today for 3.5 hrs, 2K and 3 L UF as tolerated * Pt on Warfarin with INR 2.0. No heparin will be given with dialysis * Will continue midodrine intradialytic hypotension. * Hold Aranesp 25 mcg once weekly with dialysis till Hbg < 11 gm/dl * Patient was educated about the importance of the dialysis. * Monitor CBC and renal function daily. Documented By: Rayna Hoang MD 01/06/241108 Signed By: 01/06/24 1117 [facility]11-10-2024 Progress note Author Ricky Garcia [facility] Note Date/Time January 05, 2024 3:14pm [facility] [address] [place] [address] Hospitalist Progress Note Signed with Addenda Patient: Edita Costa MR# : [id number] : 1950 Acct:[id number] Age/Sex: 73 / F Adm Date: 4 Loc: Room: [address] [place] [address] Type: ADM IN Attending Dr: Ricky Garcia MD Copies to: ~ ADDENDUM1 I was called by the nurse as her son-healthcare power of associate attorney wanted to talkto me. I had a long conversation with the son and other family members. He mentioned that they want to change the CODE STATUS. For last 2 months her health has not been as it was before as per the son. She had pneumonia and C. difficile infection and has been bedbound. Previously she used to go for dialysis but recently has not been able to. They had been discussing with hospice informally. The patient and her family mentioned that they do not want any chest compressions or intubation if her heart stops but want to continue with the current medication and dialysis as needed. They are also want palliative medicine on consult for goals of care discussion. Addendum Documented By: Ricky Garcia MD 01/05/241513 Addendum Signed By: <Electronically signed by Ricky Garcia MD> 01/05/241513 Date of Service: 01/05/2024 Subjective Subjective Narrative: Seen patient in the dialysis unit. Mentions that her symptom is better now. Her heart rate is better controlled. No other complaints. Exam Physical Exam Vital Signs: Temp Pulse Resp BP Pulse Ox O2 Del Method 97.4 F L 110 H 16 96/76 L 94 L Room Air 01/05/24 13:18 01/05/24 13:18 01/05/24 13:18 01/05/24 13:18 01/05/24 13:18 01/05/24 13:18 Narrative: General: Awake alert, no acute distress HEENT: head atraumatic, normocephalic, moist mucous membranes Neck: supple no masses, no lymphadenopathy CVS: regular rate and rhythm, no murmurs or gallops Respiratory: clear to auscultation bilaterally, no wheezing or crackles, symmetric expansion GI: soft, nondistended, nontender, positive bowel sounds with no organomegaly Extremity: moves all extremities, no restrictions of movements, no calf tenderness Neuro: AOx3, CN II-VII intact. Moves all extremities in all planes of motion. Skin: intact no rashes or lesions Objective Lab Results 01/05/24 03:38 01/05/24 03:38 Meds Allergies and Active Meds Allergies Penicillins Allergy (Severe, Verified 12/19/23 12:21) Swelling of Lip/Tongue/Throat, anaphylaxis tuberculin,PPD,multi-puncture Allergy (Intermediate, Verified 12/19/23 12:21) Redness of Skin atorvastatin (From Lipitor) Allergy (Unknown, Verified 12/19/23 12:21) Cramping of the Muscles, bodyaches Active Meds: Active Medications Generic Name Dose Route Start Last Admin Trade Name Freq PRN Reason Stop Dose Admin Acetaminophen 650 mg 01/05/24 05:06 Acetaminophen 325 Mg Tablet PO 01/04/25 05:05 Q6HR PRN Pain Scale 1 - 3 or fever Darbepoetin Herbie 25 mcg 01/08/24 10:00 Darbepoetin Herbie In Polysorbat 25 Mcg/Ml Vial IV-PUSH 01/07/25 09:59 We@1000 CYNTHIA Protocol Diltiazem HCl 100 mg in 100 mls @ 10 mls/hr 01/05/24 03:45 01/05/24 11:14 Cardizem IV 01/04/25 03:44 5 mg/hr .Q10H CYTNHIA 5 mls/hr Administration Protocol 10 MG/HR Sodium Chloride 1,000 mls @ 0 mls/hr 01/05/24 08:30 01/05/24 08:54 0.9% Sodium Chloride 1,000 Ml MISCELLANE 01/04/25 08:29 Infused .Q0M PRN Infusion Dialysis As Directed Albumin Human 25 gm in 100 mls @ 200 mls/hr 01/05/24 10:08 01/05/24 10:38 Albuminar-25 IV 01/05/24 23:59 Infused ONCE PRN Infusion Dialysis Midodrine 5 mg 01/05/24 08:30 01/05/24 09:40 Midodrine 5 Mg Tablet PO 01/04/25 08:29 5 mg PRN PRN Administration Dialysis Sodium Chloride 0 ml 01/05/24 03:50 01/05/24 04:05 Sodium Chloride 0.9 % 10 Ml Syringe IV-PUSH 01/04/25 03:49 10 ml PRN PRN Administration Flush Sodium Chloride 0 ml 01/05/24 08:30 01/05/24 08:54 Sodium Chloride 0.9 % 10 Ml Syringe IV-PUSH 01/04/25 08:29 10 ml PRN PRN Administration Flush A&P - Hospitalist Assessment/Plan (1) Atrial fibrillation with rapid ventricular response: (2) Missed dialysis: (3) Hyperkalemia: (4) Volume overload: Plan 73 year old woman with history of ESRD on HD, paroxysmal AF on warfarin, PAD, HTN, DLD who presented to the ED complaining of acute onset dyspnea starting just prior to presentation. Pt awoke from sleep this evening feeling acutely short of breath with palpitations. Last dialysis on December 19 and has been refusing treatment for not feeling well. In the ED found to be in A-fib with RVR. Patient started on diltiazem drip and hyperkalemia cocktail was given for elevated potassium. Patient had her dialysis done today. Atrial Fibrillation with Rapid Ventricular Response monitor on telemetry continue diltiazem gtt, titrate to ventricular rate <100 K >4 MG >2 Cardiology consulted-appreciate recommendation -Continue warfarin for target INR of 2-3. Pharmacy managing. Missed dialysis Hyperkalemia Volume overload - pt last got HD 12/19, has been refusing treatments - given kayexelate, insulin/D50, calcium gluconate in ED -Nephrology managing dialysis and electrolytes. monitor on telemetry check bmp daily to monitor K Chronic conditions -Hyperlipidemia on statin -Constipation-continue home bowel regimen -Hypotension-continue midodrine -GERD-continue omeprazole FULL CODE VTE prophylaxis- on warfarin Documented By: Ricky Garcia MD 01/05/24 1413 Signed By: <Electronically signed by Ricky Garcia MD> 01/05/24 1421 [facility] Work Phone: 1(176) 789-453511-10-2024 [place] [address] Hospitalist Progress Note Signed with Smitha Patient: Edita Costa MR# : [id number] : 1950 Acct:[id number] Age/Sex: 73 / F Adm Date: 4 Loc: Room: [address] [place] [address] Type: ADM IN Attending Dr: Ricky Garcia MD Copies to: ~ ADDENDUM1 I was called by the nurse as her son-healthcare power of associate attorney wanted to talkto me. I had a longconversation with the son and other family members. He mentioned that they want to change the CODE STATUS. For last 2 months her health has not been as it was before as per the son. She had pneumoniaand C. difficile infection and has been bedbound. Previously she used to go for dialysis but recently has not been able to. They had been discussing with hospice informally. The patient and her family mentioned that they do not want any chest compressions or intubation if her heart stops but want to continue with the current medication and dialysis as needed. They are also want palliative medicine on consult for goals of care discussion. Addendum Documented By: Ricky Garcia MD 01/05/241513 Addendum Signed By: 01/05/241513 Date of Service: 01/05/2024 Subjective Subjective Narrative: Seen patient in the dialysis unit. Mentions that her symptom is better now. Her heart rate is better controlled. No other complaints. Exam Physical Exam Vital Signs: Temp Pulse Resp BP Pulse Ox O2 Del Method 97.4 F L 110 H 16 96/76 L 94 L Room Air 01/05/24 13:18 01/05/24 13:18 01/05/24 13:18 01/05/24 13:18 01/05/24 13:18 01/05/24 13:18 Narrative: General: Awake alert, no acute distress HEENT: head atraumatic, normocephalic, moist mucous membranes Neck: supple no masses, no lymphadenopathy CVS: regular rate and rhythm, no murmurs or gallops Respiratory: clear to auscultation bilaterally, no wheezing or crackles, symmetric expansion GI: soft, nondistended, nontender, positive bowel sounds with no organomegaly Extremity: moves all extremities, no restrictions of movements, no calf tenderness Neuro: AOx3, CN II-VII intact. Moves all extremities in all planes of motion. Skin: intact no rashes or lesions Objective Lab Results 01/05/24 03:38 01/05/24 03:38 Meds Allergies and Active Meds Allergies Penicillins Allergy (Severe, Verified 12/19/23 12:21) Swelling of Lip/Tongue/Throat, anaphylaxis tuberculin,PPD,multi-puncture Allergy (Intermediate, Verified 12/19/23 12:21) Redness of Skin atorvastatin (From Lipitor) Allergy (Unknown, Verified 12/19/23 12:21) Cramping of the Muscles, bodyaches Active Meds: Active Medications Generic Name Dose Route Start Last Admin Trade Name Freq PRN Reason Stop Dose Admin Acetaminophen 650 mg 01/05/24 05:06 Acetaminophen 325 Mg Tablet PO 01/04/25 05:05 Q6HR PRN Pain Scale 1 - 3 or fever Darbepoetin Herbie 25 mcg 01/08/24 10:00 Darbepoetin Herbie In Polysorbat 25 Mcg/Ml Vial IV-PUSH 01/07/25 09:59 We@1000 CYNTHIA Protocol Diltiazem HCl 100 mg in 100 mls @ 10 mls/hr 01/05/24 03:45 01/05/24 11:14 Cardizem IV 01/04/25 03:44 5 mg/hr .Q10H CYNTHIA 5 mls/hr Administration Protocol 10 MG/HR Sodium Chloride 1,000 mls @ 0 mls/hr 01/05/24 08:30 01/05/24 08:54 0.9% Sodium Chloride 1,000 Ml MISCELLANE 01/04/25 08:29 Infused .Q0M PRN Infusion Dialysis As Directed Albumin Human 25 gm in 100 mls @ 200 mls/hr 01/05/24 10:08 01/05/24 10:38 Albuminar-25 IV 01/05/24 23:59 Infused ONCE PRN Infusion Dialysis Midodrine 5 mg 01/05/24 08:30 01/05/24 09:40 Midodrine 5 Mg Tablet PO 01/04/25 08:29 5 mg PRN PRN Administration Dialysis Sodium Chloride 0 ml 01/05/24 03:50 01/05/24 04:05 Sodium Chloride 0.9 % 10 Ml Syringe IV-PUSH 01/04/25 03:49 10 ml PRN PRN Administration Flush Sodium Chloride 0 ml 01/05/24 08:30 01/05/24 08:54 Sodium Chloride 0.9 % 10 Ml Syringe IV-PUSH 01/04/25 08:29 10 ml PRN PRN Administration Flush A&P - Hospitalist Assessment/Plan (1) Atrial fibrillation with rapid ventricular response: (2) Missed dialysis: (3) Hyperkalemia: (4) Volume overload: Plan 73 year old woman with history of ESRD on HD, paroxysmal AF on warfarin, PAD, HTN, DLD who presented to the ED complaining of acute onset dyspnea starting just prior to presentation. Pt awoke from sleep this evening feeling acutely short of breath with palpitations. Last dialysis on December 19 and has been refusing treatment for not feeling well. In the ED found to be in A-fib with RVR. Patient started on diltiazem drip and hyperkalemia cocktail was given for elevated potassium. Patient had herdialysis done today. Atrial Fibrillation with Rapid Ventricular Response monitor on telemetry continue diltiazem gtt, titrate to ventricular rate <100 K >4 MG >2 Cardiology consulted-appreciate recommendation -Continue warfarin for target INR of 2-3. Pharmacy managing. Missed dialysis Hyperkalemia Volume overload - pt last got HD 12/19, has been refusing treatments - given kayexelate, insulin/D50, calcium gluconate in ED -Nephrology managing dialysis and electrolytes. monitor on telemetry check bmp daily to monitor K Chronic conditions -Hyperlipidemia on statin -Constipation-continue home bowel regimen -Hypotension-continue midodrine -GERD-continue omeprazole FULL CODE VTE prophylaxis- on warfarin Documented By: Ricky Garcia MD 01/05/24 141 Signed By: 01/05/24 1421 [facility]11-10-2024 Consult note Author Danika Lin [facility] Note Date/Time January 05, 2024 9:56am [facility] [address] [place] [address] Nephrology Consult Note Signed Patient: Edita Costa MR# : [id number] : 1950 Acct:[id number] Age/Sex: 73 / F Adm Date: 4 Loc: Room: [address] [place] [address] Type: ADM IN Attending Dr: Ricky Garcia MD Copies to: MD Ricky Nathan MD Daniel Berry II, MD~ Providers Consult Date: 01/05/24 Requesting Provider: Ricky Garcia MD Primary Care Provider: Curtis Byrd II, MD HPI Reason for Consult: ESRD management History of Present Illness: This is a 73-year-old female with medical history of ESRD, A-fib, GERD, HTN, DM,ESRD and HLD was presented to the emergency room for shortness of breath. On evaluation in the emergency room she was found to have A-fib with RVR and was started on Cardizem drip after Cardizem bolus. She was also found to have hyperkalemia and was treated medically with insulin with 50 and Lokelma. Her chest x-ray showed finding for fluid overload. I was consulted by the ER physician for emergent hemodialysis due to the fluid overload and hyperkalemia. 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 Patient [facility] the [facility] and has been refusing to go for dialysis. She met with the hospice on 12/30/2023 and decided to continue dialysis on the request of the son. Patient was seen and examined bedside during her hemodialysis feeling better and denies any chest pain or palpitation Review of Systems Review of Systems All other systems reviewed & are negative unless noted below or in HPI Review of systems: Cardiovascular: denies any chest pain, palpitation Pulmonary: denies any cough, hemoptysis Gastrointestinal: denies any nausea, vomiting, diarrhea Neurological :denies any headache, numbness, weakness Endocrine: denies any polyuria, polydipsia Dermatological: denies any itching or rash [facility] Medical History (Updated 01/05/24 @ 09:46 by Danika Lin MD) Tachy-chris syndrome Severe peripheral arterial disease Sacroiliitis Proteinuria Occult blood in stools Lumbosacral spondylosis Lumbar degenerative disc disease Left peroneal nerve palsy Iron deficiency anemia due to chronic blood loss Iron deficiency anemia Intestinal ulcer Essential hypertension Dyspnea Chronic pain CHF (congestive heart failure) Blood in stool Anticoagulated Anemia of chronic disease Anemia associated with chronic renal failure C. difficile colitis Hyperkalemia Acute diarrhea Supratherapeutic INR Acute GI bleeding Atrial fibrillation with RVR Acute hyperkalemia Leukocytosis Diarrhea Acute hyponatremia Hyponatremia GERD (gastroesophageal reflux disease) Atrial fibrillation, persistent Elevated troponin Hyperlipidemia GERD (gastroesophageal reflux disease) Neuropathy Spinal stenosis GERD (gastroesophageal reflux disease) Peripheral arterial disease History of cardioversion A-fib AVF (arteriovenous fistula) left arm Dialysis patient M-W-F @ [facility] Benign hypertension with end-stage renal disease Hyperlipidemia Tricuspid regurgitation HTN (hypertension) ESRD (end stage renal disease) Surgical History S/P arteriovenous (AV) fistula creation History of tubal ligation History of orthopedic surgery denies any orthopedic surgeries Hx of hysterectomy partial Hx of cholecystectomy History of tonsillectomy and adenoidectomy Family History Daughter Drug abuse Sister Thyroid cancer Diabetes Sister Back problem Father Diabetes Myocardial infarction Brother Diabetes Mother Gastric ulcer Son Diabetes Brother Diabetes Legacy FamHx Relation: Brother(s) Hypertension Legacy FamHx Relation: Brother(s) Brother Hypertension Legacy FamHx Relation: Brother(s) Father Diabetes Heart disease Hypertension Mother Gastric ulcer Son Diabetes Sister Cancer Legacy FamHx Problem: Diagnosed with Cancer Social History Smoking Status: Former smoker Tobacco Type: cigarettes Substance Use Type: None Social History Comments: lives and cares for sisters mother in law Meds Medications & Allergies Allergies Penicillins Allergy (Severe, Verified 12/19/23 12:21) Swelling of Lip/Tongue/Throat, anaphylaxis tuberculin,PPD,multi-puncture Allergy (Intermediate, Verified 12/19/23 12:21) Redness of Skin atorvastatin (From Lipitor) Allergy (Unknown, Verified 12/19/23 12:21) Cramping of the Muscles, bodyaches Home Medications bumetanide 1 mg tablet 1 mg PO QHS 11/17/19 [History Confirmed 01/05/24] rosuvastatin 10 mg tablet 10 mg PO DAILY 06/23/20 [History Confirmed 01/05/24] biotin 5,000 mcg disintegrating tablet 10,000 mcg PO DAILY 01/26/21 [History Confirmed 01/05/24] docusate sodium 100 mg capsule (Colace) 100 mg PO DAILY Constipation 01/26/21 [History Confirmed 01/05/24] acetaminophen 650 mg tablet,extended release 650 mg PO Q12H PRN Pain 03/06/22 [History Confirmed 01/05/24] midodrine 10 mg tablet 10 mg PO TID 10/26/23 [History Confirmed 01/05/24] diltiazem HCl 120 mg capsule,extended release 24 hr 120 mg PO DAILY #0 caps 10/30/23 [Rx Confirmed 01/05/24] midodrine 5 mg tablet 5 mg PO MOWEFR PRN dialysis #0 tabs 10/30/23 [Rx Confirmed 01/05/24] polyethylene glycol 3350 17 gram oral powder packet (Miralax) 17 g PO DAILY PRN constipation #14 ea 10/30/23 [Rx Confirmed 01/05/24] B Complex-Vitamin C 1 tab PO DAILY 01/05/24 [History Confirmed 01/05/24] omeprazole 20 mg capsule,delayed release 20 mg PO DAILY 01/05/24 [History Confirmed 01/05/24] warfarin 1 mg tablet 0.5 mg PO HS 01/05/24 [History Confirmed 01/05/24] Active Medications: Active Medications Acetaminophen (Acetaminophen 325 Mg Tablet) 650 mg PO Q6HR PRN PRN Reason: Pain Scale 1 - 3 or fever Stop: 01/04/25 05:05 Darbepoetin Herbie (Darbepoetin Herbie In Polysorbat 25 Mcg/Ml Vial) 25 mcg IV-PUSHWe@1000 CYNTHIA; Protocol Stop: 01/07/25 09:59 Diltiazem HCl (Cardizem) 100 mg in 100 mls @ 10 mls/hr IV .Q10H CYNTHIA; Protocol Stop: 01/04/25 03:44 Last Titration: 01/05/24 06:11 Dose: 15 mg/hr, 15 mls/hr Sodium Chloride (0.9% Sodium Chloride 1,000 Ml) 1,000 mls @ 0 mls/hr MISCELLANE.Q0M PRN PRN Reason: Dialysis Stop: 01/04/25 08:29 Last Infusion: 01/05/24 08:54 Dose: Infused Midodrine (Midodrine 5 Mg Tablet) 5 mg PO PRN PRN PRN Reason: Dialysis Stop: 01/04/25 08:29 Sodium Chloride (Sodium Chloride 0.9 % 10 Ml Syringe) 0 ml IV-PUSH PRN PRN PRN Reason: Flush Stop: 01/04/25 03:49 Last Admin: 01/05/24 04:05 Dose: 10 ml Sodium Chloride (Sodium Chloride 0.9 % 10 Ml Syringe) 0 ml IV-PUSH PRN PRN PRN Reason: Flush Stop: 01/04/25 08:29 Last Admin: 01/05/24 08:54 Dose: 10 ml Exam Physical Exam Vital Signs: Temp Pulse Resp BP Pulse Ox O2 Del Method 96.8 F L 93 16 96/64 L 94 L Room Air 01/05/24 09:04 01/05/24 09:04 01/05/24 09:04 01/05/24 09:04 01/05/24 09:04 01/05/24 09:04 Narrative: General: Appears comfortable and not in distress Heart: S1-S2, no rub Lung: Bilateral air entry, no wheezing or crackles Abdomen: Soft, positive bowel sounds Extremities: No edema, no cyanosis Head: Atraumatic, normocephalic Ear: No gross hearing Deficit or external ear redness Eyes: No pallor or redness Neck: No JVD or visible mass Skin: No rashes , warm to touch 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 I have reviewed the report(s) and am incorporating any findings in the treatment plan of this patient where applicable. A&P - Nephrology Assessment/Plan (1) Atrial fibrillation with rapid ventricular response: Assessment/Problem Details: Patient presented with shortness of breath and was found to have A-fib with RVR. She is currently on Cardizem drip. She takes Coumadin for CVA prophylaxis. 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 She is supposed to have the dialysis on MWF schedule but has been missing her dialysis. (3) Acute on chronic diastolic (congestive) heart failure: Assessment/Problem Details: Patient presented with shortness of breath and was found to have a CHF on chest x-ray due to the missing dialysis and A-fib with RVR. (4) Secondary hyperparathyroidism: Assessment/Problem Details: She has secondary hyperparathyroidism due to the ESRD currently receives IV Zemplar with dialysis. (5) Anemia in chronic kidney disease: Assessment/Problem Details: Her hemoglobin is within the goal. She received Aranesp with dialysis. (6) Missed dialysis: Assessment/Problem Details: She has been missing her dialysis quite often and only goes once a week. (7) Hyperkalemia: Assessment/Problem Details: She has hyperkalemia due to the missing dialysis. Plan * Emergent hemodialysis today due to the life-threatening hyperkalemia and fluid overload. * Continue A-fib management as per primary hospitalist team. * Will continue midodrine intradialytic hypotension. * Continue Aranesp 25 mcg once weekly with dialysis * Patient was educated about the importance of the dialysis. * Monitor CBC and renal function daily. * Thanks for consult. Will continue follow-up with you. Please feel free to call us with any question. Documented By: Danika Lin MD 01/05/24 0937 Signed By: <Electronically signed by Danika Lin MD> 01/05/24 0956 [facility] Work Phone: 1(619) 867-120011-10-2024 [place] [id number] Nephrology Consult Note Signed Patient: Edita Costa MR# : [id number] : 1950 Acct:[id number] Age/Sex: 73 / F Adm Date: 4 Loc: Room: [address] [place] [address] Type: ADM IN Attending Dr: Ricky Garcia MD Copies to: MD Ricky Nathan MD Daniel Berry II, MD~ Providers Consult Date: 01/05/24 Requesting Provider: Ricky Garcia MD Primary Care Provider: Curtis Byrd II, MD HPI Reason for Consult: ESRD management History of Present Illness: This is a 73-year-old female with medical history of ESRD, A-fib, GERD, HTN, DM,ESRD and HLD was presented to the emergency room for shortness of breath. On evaluation in the emergency room she was found to have A-fib with RVR and was started on Cardizem drip after Cardizem bolus. She was also found to have hyperkalemia and was treated medically with insulin with 50 and Lokelma. Her chest x-ray showed finding for fluid overload. I was consulted by the ER physician for emergent hemodialysis due to the fluid overload and hyperkalemia. 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 Patient currently resides [facility] the [facility] and has been refusing to go for dialysis. She met with the hospice on 12/30/2023 and decided to continue dialysis on the request of the son. Patient was seen and examined bedside during her hemodialysis feeling better and denies any chest pain or palpitation Review of Systems Review of Systems All other systems reviewed & are negative unless noted below or in HPI Review of systems: Cardiovascular: denies any chest pain, palpitation Pulmonary: denies any cough, hemoptysis Gastrointestinal: denies any nausea, vomiting, diarrhea Neurological :denies any headache, numbness, weakness Endocrine: denies any polyuria, polydipsia Dermatological: denies any itching or rash [facility] Medical History (Updated 01/05/24 @ 09:46 by Danika Lin MD) Tachy-chris syndrome Severe peripheral arterial disease Sacroiliitis Proteinuria Occult blood in stools Lumbosacral spondylosis Lumbar degenerative disc disease Left peroneal nerve palsy Iron deficiency anemia due to chronic blood loss Iron deficiency anemia Intestinal ulcer Essential hypertension Dyspnea Chronic pain CHF (congestive heart failure) Blood in stool Anticoagulated Anemia of chronic disease Anemia associated with chronic renal failure C. difficile colitis Hyperkalemia Acute diarrhea Supratherapeutic INR Acute GI bleeding Atrial fibrillation with RVR Acute hyperkalemia Leukocytosis Diarrhea Acute hyponatremia Hyponatremia GERD (gastroesophageal reflux disease) Atrial fibrillation, persistent Elevated troponin Hyperlipidemia GERD (gastroesophageal reflux disease) Neuropathy Spinal stenosis GERD (gastroesophageal reflux disease) Peripheral arterial disease History of cardioversion A-fib AVF (arteriovenous fistula) left arm Dialysis patient M-W-F @ [facility] [facility] Benign hypertension with end-stage renal disease Hyperlipidemia Tricuspid regurgitation HTN (hypertension) ESRD (end stage renal disease) Surgical History S/P arteriovenous (AV) fistula creation History of tubal ligation History of orthopedic surgery denies any orthopedic surgeries Hx of hysterectomy partial Hx of cholecystectomy History of tonsillectomy and adenoidectomy Family History Daughter Drug abuse Sister Thyroid cancer Diabetes Sister Back problem Father Diabetes Myocardial infarction Brother Diabetes Mother Gastric ulcer Son Diabetes Brother Diabetes Legacy FamHx Relation: Brother(s) Hypertension Legacy FamHx Relation: Brother(s) Brother Hypertension Legacy FamHx Relation: Brother(s) Father Diabetes Heart disease Hypertension Mother Gastric ulcer Son Diabetes Sister Cancer Legacy FamHx Problem: Diagnosed with Cancer Social History Smoking Status: Former smoker Tobacco Type: cigarettes Substance Use Type: None Social History Comments: lives and cares for sisters mother in law Meds Medications & Allergies Allergies Penicillins Allergy (Severe, Verified 12/19/23 12:21) Swelling of Lip/Tongue/Throat, anaphylaxis tuberculin,PPD,multi-puncture Allergy (Intermediate, Verified 12/19/23 12:21) Redness of Skin atorvastatin (From Lipitor) Allergy (Unknown, Verified 12/19/23 12:21) Cramping of the Muscles, bodyaches Home Medications bumetanide 1 mg tablet 1 mg PO QHS 11/17/19 [History Confirmed 01/05/24] rosuvastatin 10 mg tablet 10 mg PO DAILY 06/23/20 [History Confirmed 01/05/24] biotin 5,000 mcg disintegrating tablet 10,000 mcg PO DAILY 01/26/21 [History Confirmed 01/05/24] docusate sodium 100 mg capsule (Colace) 100 mg PO DAILY Constipation 01/26/21 [History Confirmed 01/05/24] acetaminophen 650 mg tablet,extended release 650 mg PO Q12H PRN Pain 03/06/22 [History Confirmed 01/05/24] midodrine 10 mg tablet 10 mg PO TID 10/26/23 [History Confirmed 01/05/24] diltiazem HCl 120 mg capsule,extended release 24 hr 120 mg PO DAILY #0 caps 10/30/23 [Rx Confirmed 01/05/24] midodrine 5 mg tablet 5 mg PO MOWEFR PRN dialysis #0 tabs 10/30/23 [Rx Confirmed 01/05/24] polyethylene glycol 3350 17 gram oral powder packet (Miralax) 17 g PO DAILY PRN constipation #14 ea10/30/23 [Rx Confirmed 01/05/24] B Complex-Vitamin C 1 tab PO DAILY 01/05/24 [History Confirmed 01/05/24] omeprazole 20 mg capsule,delayed release 20 mg PO DAILY 01/05/24 [History Confirmed 01/05/24] warfarin 1 mg tablet 0.5 mg PO HS 01/05/24 [History Confirmed 01/05/24] Active Medications: Active Medications Acetaminophen (Acetaminophen 325 Mg Tablet) 650 mg PO Q6HR PRN PRN Reason: Pain Scale 1 - 3 or fever Stop: 01/04/25 05:05 Darbepoetin Herbie (Darbepoetin Herbie In Polysorbat 25 Mcg/Ml Vial) 25 mcg IV- PUSHWe@1000 CYNTH[facility]; Protocol Stop: 01/07/25 09:59 Diltiazem HCl (Cardizem) 100 mg in 100 mls @ 10 mls/hr IV .Q10H [facility]; Protocol Stop: 01/04/25 03:44 Last Titration: 01/05/24 06:11 Dose: 15 mg/hr, 15 mls/hr Sodium Chloride (0.9% Sodium Chloride 1,000 Ml) 1,000 mls @ 0 mls/hr MISCELLANE.Q0M PRN PRN Reason: Dialysis Stop: 01/04/25 08:29 Last Infusion: 01/05/24 08:54 Dose: Infused Midodrine (Midodrine 5 Mg Tablet) 5 mg PO PRN PRN PRN Reason: Dialysis Stop: 01/04/25 08:29 Sodium Chloride (Sodium Chloride 0.9 % 10 Ml Syringe) 0 ml IV-PUSH PRN PRN PRN Reason: Flush Stop: 01/04/25 03:49 Last Admin: 01/05/24 04:05 Dose: 10 ml Sodium Chloride (Sodium Chloride 0.9 % 10 Ml Syringe) 0 ml IV-PUSH PRN PRN PRN Reason: Flush Stop: 01/04/25 08:29 Last Admin: 01/05/24 08:54 Dose: 10 ml Exam Physical Exam Vital Signs: Temp Pulse Resp BP Pulse Ox O2 Del Method 96.8 F L 93 16 96/64 L 94 L Room Air 01/05/24 09:04 01/05/24 09:04 01/05/24 09:04 01/05/24 09:04 01/05/24 09:04 01/05/24 09:04 Narrative: General: Appears comfortable and not in distress Heart: S1-S2, no rub Lung: Bilateral air entry, no wheezing or crackles Abdomen: Soft, positive bowel sounds Extremities: No edema, no cyanosis Head: Atraumatic, normocephalic Ear: No gross hearing Deficit or external ear redness Eyes: No pallor or redness Neck: No JVD or visible mass Skin: No rashes , warm to touch 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 I have reviewed the report(s) and am incorporating any findings in the treatment plan of this patient where applicable. A&P - Nephrology Assessment/Plan (1) Atrial fibrillation with rapid ventricular response: Assessment/Problem Details: Patient presented with shortness of breath and was found to have A-fib with RVR. She is currently on Cardizem drip. She takes Coumadin for CVA prophylaxis. 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 She is supposed to have the dialysis on MWF schedule but has been missing her dialysis. (3) Acute on chronic diastolic (congestive) heart failure: Assessment/Problem Details: Patient presented with shortness of breath and was found to have a CHF on chest x-ray due to the missing dialysis and A-fib with RVR. (4) Secondary hyperparathyroidism: Assessment/Problem Details: She has secondary hyperparathyroidism due to the ESRD currently receives IV Zemplar with dialysis. (5) Anemia in chronic kidney disease: Assessment/Problem Details: Her hemoglobin is within the goal. She received Aranesp with dialysis. (6) Missed dialysis: Assessment/Problem Details: She has been missing her dialysis quite often and only goes once a week. (7) Hyperkalemia: Assessment/Problem Details: She has hyperkalemia due to the missing dialysis. Plan * Emergent hemodialysis today due to the life-threatening hyperkalemia and fluid overload. * Continue A-fib management as per primary hospitalist team. * Will continue midodrine intradialytic hypotension. * Continue Aranesp 25 mcg once weekly with dialysis * Patient was educated about the importance of the dialysis. * Monitor CBC and renal function daily. * Thanks for consult. Will continue follow-up with you. Please feel free to call us with any question. Documented By: Danika Lin MD 01/05/24 0937 Signed By: 01/05/24 0956 [facility]11-10-2024 History and physical note Author Curtis Lino [facility] Note Date/Time January 05, 2024 5:26am [facility] [address] [place] [address] Hospitalist H&P Signed Patient: Edita Costa MR# : [id number] : 1950 Acct:[id number] Age/Sex: 73 / F Adm Date: 4 Loc: Room: [address] [place] [address] Type: ADM IN Attending Dr: Curtis Lino MD Copies to: MD Curtis Yun II, MD~ [facility] DATE OF EXAMINATION: 01/05/24 CHIEF COMPLAINT: dyspnea HISTORY OF PRESENT ILLNESS: 73 year old woman with history of ESRD on HD, paroxysmal AF on warfarin, PAD, HTN, DLD who presented to the ED complaining of acute onset dyspnea starting just prior to presentation Per the patient she awoke from sleep this evening feeling acutely short of breath with tachypalpitations. She reports feeling [facility], and denies any fever chills cough chest pain orthopnea lightheadedness or syncope Pt was last dialyzed 12/19 and has been refusing her treatments since because ihaven't felt like going pt presented to the ED for evaluation, vital signs on arrival T 97.7 P 150 R 18 BP 147/91 SaO2 92% on RA. labs notable for K of 6.0 ECG with AF with RVR 155 bpm and LBBB pt was given diltiazem bolus/gtt, calcium gluconate, insulin, D50, and kayexelate and is admitted for further evaluation and mgmt ROS: 10 systems reviewed and were negative except as noted in the [facility] Medical History Tachy-chris syndrome Severe peripheral arterial disease Sacroiliitis Proteinuria Occult blood in stools Lumbosacral spondylosis Lumbar degenerative disc disease Left peroneal nerve palsy Iron deficiency anemia due to chronic blood loss Iron deficiency anemia Intestinal ulcer Essential hypertension Dyspnea Chronic pain CHF (congestive heart failure) Blood in stool Anticoagulated Anemia of chronic disease Anemia associated with chronic renal failure C. difficile colitis Hyperkalemia Acute diarrhea Supratherapeutic INR Acute GI bleeding Atrial fibrillation with RVR Acute hyperkalemia Leukocytosis Diarrhea Acute hyponatremia Hyponatremia GERD (gastroesophageal reflux disease) Atrial fibrillation, persistent Elevated troponin Hyperlipidemia GERD (gastroesophageal reflux disease) Neuropathy Spinal stenosis GERD (gastroesophageal reflux disease) Peripheral arterial disease History of cardioversion A-fib AVF (arteriovenous fistula) left arm Dialysis patient D[place] @ [facility] [place] Benign hypertension with end-stage renal disease Hyperlipidemia Tricuspid regurgitation HTN (hypertension) ESRD (end stage renal disease) Surgical History S/P arteriovenous (AV) fistula creation History of tubal ligation History of orthopedic surgery denies any orthopedic surgeries Hx of hysterectomy partial Hx of cholecystectomy History of tonsillectomy and adenoidectomy Family History Daughter Drug abuse Sister Thyroid cancer Diabetes Sister Back problem Father Diabetes Myocardial infarction Brother Diabetes Mother Gastric ulcer Son Diabetes Brother Diabetes Legacy FamHx Relation: Brother(s) Hypertension Legacy FamHx Relation: Brother(s) Brother Hypertension Legacy FamHx Relation: Brother(s) Father Diabetes Heart disease Hypertension Mother Gastric ulcer Son Diabetes Sister Cancer Legacy FamHx Problem: Diagnosed with Cancer Social History Smoking Status: Former smoker Tobacco Type: cigarettes Substance Use Type: None Social History Comments: lives and cares for sisters mother in law Meds Medications and Allergies Allergies Penicillins Allergy (Severe, Verified 12/19/23 12:21) Swelling of Lip/Tongue/Throat, anaphylaxis tuberculin,PPD,multi-puncture Allergy (Intermediate, Verified 12/19/23 12:21) Redness of Skin atorvastatin (From Lipitor) Allergy (Unknown, Verified 12/19/23 12:21) Cramping of the Muscles, bodyaches Home Medications bumetanide 1 mg tablet 1 mg PO QHS 11/17/19 [History Confirmed 01/05/24] rosuvastatin 10 mg tablet 10 mg PO DAILY 06/23/20 [History Confirmed 01/05/24] biotin 5,000 mcg disintegrating tablet 10,000 mcg PO DAILY 01/26/21 [History Confirmed 01/05/24] docusate sodium 100 mg capsule (Colace) 100 mg PO DAILY Constipation 01/26/21 [History Confirmed 01/05/24] acetaminophen 650 mg tablet,extended release 650 mg PO Q12H PRN Pain 03/06/22 [History Confirmed 01/05/24] midodrine 10 mg tablet 10 mg PO TID 10/26/23 [History Confirmed 01/05/24] diltiazem HCl 120 mg capsule,extended release 24 hr 120 mg PO DAILY #0 caps 10/30/23 [Rx Confirmed 01/05/24] midodrine 5 mg tablet 5 mg PO MOWEFR PRN dialysis #0 tabs 10/30/23 [Rx Confirmed 01/05/24] polyethylene glycol 3350 17 gram oral powder packet (Miralax) 17 g PO DAILY PRN constipation #14 ea 10/30/23 [Rx Confirmed 01/05/24] B Complex-Vitamin C 1 tab PO DAILY 01/05/24 [History Confirmed 01/05/24] omeprazole 20 mg capsule,delayed release 20 mg PO DAILY 01/05/24 [History Confirmed 01/05/24] warfarin 1 mg tablet 0.5 mg PO HS 01/05/24 [History Confirmed 01/05/24] Exam Physical Exam Vital Signs: Temp Pulse Resp BP Pulse Ox O2 Del Method 97.7 F 107 H 18 128/59 L 93 L Room Air 01/05/24 03:28 01/05/24 04:50 01/05/24 04:50 01/05/24 04:50 01/05/24 04:50 01/05/24 04:50 Const General: cooperative, no acute distress and well developed HEENT Head: normal to inspection Ears: external ears normal Nose: external nose normal Face and sinus: normal facial exam Mouth: oral mucosae normal Throat: posterior oropharynx normal Eyes General: appearance normal, both eyes and all related structures Visual Maki: normal visual maki by confrontation Alignment and Position: alignment abnormal right exotropia Sclera: sclerae normal Pupils: PERRL and accommodation normal Neck Neck: normal visual inspection, no lymphadenopathy and supple Thyroid: thyroid normal Lymphatic: no lymphadenopathy noted Chest Chest palpation & inspection: normal inspection of the chest Resp Effort & Inspection: normal respiratory effort, able to speak in complete sentences and symmetric chest movement Auscultation: diminished lung sounds bilaterally in the lower lung maki Cardio Palpation: normal PMI Rate: tachycardic Rhythm: abnormal rhythm irregularly irregular Heart Sounds: S1 normal and S2 normal GI Inspection: normal to inspection Palpation: soft Auscultation: normal bowel sounds General: bladder normal to palpation Bimanual Exam- Vagina & Uterus: bladder normal to palpation Musc Cervical Spine: cervical ROM normal Thoracic/Lumbar Spine: thoracic and lumbar spine normal to inspection Skin General: no rashes or lesions noted and turgor normal Neuro General: patient alert, patient awake and patient oriented x3 Cranial Nerves: CN's II-XII intact bilaterally Cognition: normal cognition Speech: speech normal Motor: muscle tone normal throughout and strength 5/5 throughout Sensory Exam: no sensory deficits noted Extrem General: normal to inspection and full ROM Psych Appearance: grossly normal Mental Status: mental status grossly normal Affect: normal affect Speech and Movement: speech and movement normal Attitude: cooperative Results - Hospitalist H&P Lab Results Labs: Laboratory Last Values Corrected WBC 9.1 X10E3/uL (3.8-11.6) 01/05/24 03:38 Uncorrected WBC Count 9.1 x10E3/uL (3.8-11.6) 01/05/24 03:38 RBC 3.94 X10E6/uL (3.60-5.00) 01/05/24 03:38 Hgb 11.6 g/dL (11.8-15.4) L 01/05/24 03:38 Hct 35.9 % (34.0-46.4) 01/05/24 03:38 MCV 91.2 fl (80-100) 01/05/24 03:38 MCH 29.5 pg (24.7-34.3) 01/05/24 03:38 MCHC 32.4 g/dL (32.0-35.0) 01/05/24 03:38 RDW 17.4 % (11.9-15.3) H 01/05/24 03:38 Plt Count 292 x10E3/uL (150-450) 01/05/24 03:38 MPV 7.1 fl (6.3-10.7) 01/05/24 03:38 Neut % (Auto) 83.3 % (.) 01/05/24 03:38 Lymph % (Auto) 11.4 % (.) 01/05/24 03:38 Burnet % (Auto) 3.9 % (.) 01/05/24 03:38 Eos % (Auto) 0.2 % (.) 01/05/24 03:38 Baso % (Auto) 1.2 % (.) 01/05/24 03:38 Nucleat RBC Rel Count 0.1 /100 WBC (0-0.5) 01/05/24 03:38 Neut # (Auto) 7.6 x10E3/uL (1.8-7.7) 01/05/24 03:38 Lymph # (Auto) 1.0 x10E3/uL (1.00-4.8) 01/05/24 03:38 Burnet # (Auto) 0.4 x10E3/uL (0.0-0.8) 01/05/24 03:38 Eos # (Auto) 0.0 x10E3/uL (0.0-0.45) 01/05/24 03:38 Baso # (Auto) 0.1 x10E3/uL (0.0-0.2) 01/05/24 03:38 Monocyte Dist Width 20.38 % (0.00-20.00) H 01/05/24 03:38 PT 19.7 Seconds (9.0-12.9) H 01/05/24 03:38 INR 1.7 01/05/24 03:38 APTT 34.8 Seconds (25.1-36.5) 01/05/24 03:38 PHA Creatinine Clear 4.62 01/05/24 03:38 Sodium 135 mmol/L (136-145) L 01/05/24 03:38 Potassium 6.0 mmol/L (3.5-5.1) H 01/05/24 03:38 Chloride 93 mmol/L (98-107) L 01/05/24 03:38 Carbon Dioxide 23.1 mmol/L (21.0-31.0) 01/05/24 03:38 Anion Gap 24.9 mEq/L (6.0-15.0) H 01/05/24 03:38 BUN 58 mg/dL (7-25) H 01/05/24 03:38 Creatinine 11.46 mg/dL (0.60-1.20) H 01/05/24 03:38 Est GFR (CKD-EPI) 3.227 mL/Min 01/05/24 03:38 Glucose 114 mg/dL (70-100) H 01/05/24 03:38 Calcium 9.3 mg/dL (8.6-10.3) 01/05/24 03:38 Phosphorus 7.2 mg/dL (2.5-4.5) H 01/05/24 03:38 Magnesium 2.3 mg/dL (1.9-2.7) 01/05/24 03:38 Total Bilirubin 0.7 mg/dl (0.3-1.0) 01/05/24 03:38 AST 16 U/L (13-39) 01/05/24 03:38 ALT 11 U/L (7-52) 01/05/24 03:38 Alkaline Phosphatase 99 U/L (34-104) 01/05/24 03:38 Total Creatine Kinase 29 U/L (30-223) L 01/05/24 03:38 Troponin I High Sens 62.1 pg/mL (0.0-15.0) H* 01/05/24 03:38 Total Protein 6.5 gm/dL (6.4-8.9) 01/05/24 03:38 Albumin 3.0 gm/dL (3.5-5.7) L 01/05/24 03:38 Globulin 3.5 gm/dL 01/05/24 03:38 Albumin/Globulin Ratio 0.9 01/05/24 03:38 Assessment & Plan Assessment/Plan (1) Atrial fibrillation with rapid ventricular response: (2) Missed dialysis: (3) Hyperkalemia: (4) Volume overload: Plan Atrial Fibrillation with Rapid Ventricular Response admit to medicine monitor on telemetry continue diltiazem gtt, titrate to ventricular rate <100 K >4 MG >2 INR subtherapeutic- will give dose of warfarin when med rec completed Missed dialysis Hyperkalemia Volume overload - pt last got HD 12/19, has been refusing treatments - given kayexelate, insulin/D50, calcium gluconate in ED ED spoke to nephrology- plan for hemodialysis later today monitor on telemetry check bmp daily to monitor K FULL CODE VTE prophylaxis- on warfarin IP vs OBS Justification Based on differential dx, clinical care plan, and risk of adverse events, if untreated, in my clinical judgement this patient requires an acute care setting as: INPATIENT because of an expectation of an over 2 midnight stay. Estimated length of stay (# of days): 2 Documented By: Curtis Lino MD [id number] Signed By: <Electronically signed by Curtis Lino MD> 01/05/24 0526 [facility] Work Phone: 1(542) 346-361611-10-2024 History and physical [place] [id number] Hospitalist H&P Signed Patient: Edita Costa MR# : [id number] : 1950 Acct:[id number] Age/Sex: 73 / F Adm Date: 4 Loc: Room: [address] [place] [address] Type: ADM IN Attending Dr: Curtis Lino MD Copies to: MD Curtis Yun II, MD~ [facility] DATE OF EXAMINATION: 01/05/24 CHIEF COMPLAINT: dyspnea HISTORY OF PRESENT ILLNESS: 73 year old woman with history of ESRD on HD, paroxysmal AF on warfarin, PAD, HTN, DLD who presented to the ED complaining of acute onset dyspnea starting just prior to presentation Per the patient she awoke from sleep this evening feeling acutely short of breath with tachypalpitations. She reports feeling well [facility], and denies any fever chills cough chest pain orthopnea lightheadedness or syncope Pt was last dialyzed 12/19 and has been refusing her treatments since because ihaven't felt like going pt presented to the ED for evaluation, vital signs on arrival T 97.7 P 150 R 18 BP 147/91 SaO2 92% on RA. labs notable for K of 6.0 ECG with AF with RVR 155 bpm and LBBB pt was given diltiazem bolus/gtt, calcium gluconate, insulin, D50, and kayexelate and is admitted for further evaluation and mgmt ROS: 10 systems reviewed and were negative except as noted in the [facility] Medical History Tachy-chris syndrome Severe peripheral arterial disease Sacroiliitis Proteinuria Occult blood in stools Lumbosacral spondylosis Lumbar degenerative disc disease Left peroneal nerve palsy Iron deficiency anemia due to chronic blood loss Iron deficiency anemia Intestinal ulcer Essential hypertension Dyspnea Chronic pain CHF (congestive heart failure) Blood in stool Anticoagulated Anemia of chronic disease Anemia associated with chronic renal failure C. difficile colitis Hyperkalemia Acute diarrhea Supratherapeutic INR Acute GI bleeding Atrial fibrillation with RVR Acute hyperkalemia Leukocytosis Diarrhea Acute hyponatremia Hyponatremia GERD (gastroesophageal reflux disease) Atrial fibrillation, persistent Elevated troponin Hyperlipidemia GERD (gastroesophageal reflux disease) Neuropathy Spinal stenosis GERD (gastroesophageal reflux disease) Peripheral arterial disease History of cardioversion A-fib AVF (arteriovenous fistula) left arm Dialysis patient M-W-F @ [facility] [place] Benign hypertension with end-stage renal disease Hyperlipidemia Tricuspid regurgitation HTN (hypertension) ESRD (end stage renal disease) Surgical History S/P arteriovenous (AV) fistula creation History of tubal ligation History of orthopedic surgery denies any orthopedic surgeries Hx of hysterectomy partial Hx of cholecystectomy History of tonsillectomy and adenoidectomy Family History Daughter Drug abuse Sister Thyroid cancer Diabetes Sister Back problem Father Diabetes Myocardial infarction Brother Diabetes Mother Gastric ulcer Son Diabetes Brother Diabetes Legacy FamHx Relation: Brother(s) Hypertension Legacy FamHx Relation: Brother(s) Brother Hypertension Legacy FamHx Relation: Brother(s) Father Diabetes Heart disease Hypertension Mother Gastric ulcer Son Diabetes Sister Cancer Legacy FamHx Problem: Diagnosed with Cancer Social History Smoking Status: Former smoker Tobacco Type: cigarettes Substance Use Type: None Social History Comments: lives and cares for sisters mother in law Meds Medications and Allergies Allergies Penicillins Allergy (Severe, Verified 12/19/23 12:21) Swelling of Lip/Tongue/Throat, anaphylaxis tuberculin,PPD,multi-puncture Allergy (Intermediate, Verified 12/19/23 12:21) Redness of Skin atorvastatin (From Lipitor) Allergy (Unknown, Verified 12/19/23 12:21) Cramping of the Muscles, bodyaches Home Medications bumetanide 1 mg tablet 1 mg PO QHS 11/17/19 [History Confirmed 01/05/24] rosuvastatin 10 mg tablet 10 mg PO DAILY 06/23/20 [History Confirmed 01/05/24] biotin 5,000 mcg disintegrating tablet 10,000 mcg PO DAILY 01/26/21 [History Confirmed 01/05/24] docusate sodium 100 mg capsule (Colace) 100 mg PO DAILY Constipation 01/26/21 [History Confirmed 01/05/24] acetaminophen 650 mg tablet,extended release 650 mg PO Q12H PRN Pain 03/06/22 [History Confirmed 01/05/24] midodrine 10 mg tablet 10 mg PO TID 10/26/23 [History Confirmed 01/05/24] diltiazem HCl 120 mg capsule,extended release 24 hr 120 mg PO DAILY #0 caps 10/30/23 [Rx Confirmed 01/05/24] midodrine 5 mg tablet 5 mg PO MOWEFR PRN dialysis #0 tabs 10/30/23 [Rx Confirmed 01/05/24] polyethylene glycol 3350 17 gram oral powder packet (Miralax) 17 g PO DAILY PRN constipation #14 ea10/30/23 [Rx Confirmed 01/05/24] B Complex-Vitamin C 1 tab PO DAILY 01/05/24 [History Confirmed 01/05/24] omeprazole 20 mg capsule,delayed release 20 mg PO DAILY 01/05/24 [History Confirmed 01/05/24] warfarin 1 mg tablet 0.5 mg PO HS 01/05/24 [History Confirmed 01/05/24] Exam Physical Exam Vital Signs: Temp Pulse Resp BP Pulse Ox O2 Del Method 97.7 F 107 H 18 128/59 L 93 L Room Air 01/05/24 03:28 01/05/24 04:50 01/05/24 04:50 01/05/24 04:50 01/05/24 04:50 01/05/24 04:50 Const General: cooperative, no acute distress and well developed HEENT Head: normal to inspection Ears: external ears normal Nose: external nose normal Face and sinus: normal facial exam Mouth: oral mucosae normal Throat: posterior oropharynx normal Eyes General: appearance normal, both eyes and all related structures Visual Maki: normal visual maki by confrontation Alignment and Position: alignment abnormal right exotropia Sclera: sclerae normal Pupils: PERRL and accommodation normal Neck Neck: normal visual inspection, no lymphadenopathy and supple Thyroid: thyroid normal Lymphatic: no lymphadenopathy noted Chest Chest palpation & inspection: normal inspection of the chest Resp Effort & Inspection: normal respiratory effort, able to speak in complete sentences and symmetric chest movement Auscultation: diminished lung sounds bilaterally in the lower lung maki Cardio Palpation: normal PMI Rate: tachycardic Rhythm: abnormal rhythm irregularly irregular Heart Sounds: S1 normal and S2 normal GI Inspection: normal to inspection Palpation: soft Auscultation: normal bowel sounds General: bladder normal to palpation Bimanual Exam- Vagina & Uterus: bladder normal to palpation Musc Cervical Spine: cervical ROM normal Thoracic/Lumbar Spine: thoracic and lumbar spine normal to inspection Skin General: no rashes or lesions noted and turgor normal Neuro General: patient alert, patient awake and patient oriented x3 Cranial Nerves: CN's II-XII intact bilaterally Cognition: normal cognition Speech: speech normal Motor: muscle tone normal throughout and strength 5/5 throughout Sensory Exam: no sensory deficits noted Extrem General: normal to inspection and full ROM Psych Appearance: grossly normal Mental Status: mental status grossly normal Affect: normal affect Speech and Movement: speech and movement normal Attitude: cooperative Results - Hospitalist H&P Lab Results Labs: Laboratory Last Values Corrected WBC 9.1 X10E3/uL (3.8-11.6) 01/05/24 03:38 Uncorrected WBC Count 9.1 x10E3/uL (3.8-11.6) 01/05/24 03:38 RBC 3.94 X10E6/uL (3.60-5.00) 01/05/24 03:38 Hgb 11.6 g/dL (11.8-15.4) L 01/05/24 03:38 Hct 35.9 % (34.0-46.4) 01/05/24 03:38 MCV 91.2 fl (80-100) 01/05/24 03:38 MCH 29.5 pg (24.7-34.3) 01/05/24 03:38 MCHC 32.4 g/dL (32.0-35.0) 01/05/24 03:38 RDW 17.4 % (11.9-15.3) H 01/05/24 03:38 Plt Count 292 x10E3/uL (150-450) 01/05/24 03:38 MPV 7.1 fl (6.3-10.7) 01/05/24 03:38 Neut % (Auto) 83.3 % (.) 01/05/24 03:38 Lymph % (Auto) 11.4 % (.) 01/05/24 03:38 Burnet % (Auto) 3.9 % (.) 01/05/24 03:38 Eos % (Auto) 0.2 % (.) 01/05/24 03:38 Baso % (Auto) 1.2 % (.) 01/05/24 03:38 Nucleat RBC Rel Count 0.1 /100 WBC (0-0.5) 01/05/24 03:38 Neut # (Auto) 7.6 x10E3/uL (1.8-7.7) 01/05/24 03:38 Lymph # (Auto) 1.0 x10E3/uL (1.00-4.8) 01/05/24 03:38 Burnet # (Auto) 0.4 x10E3/uL (0.0-0.8) 01/05/24 03:38 Eos # (Auto) 0.0 x10E3/uL (0.0-0.45) 01/05/24 03:38 Baso # (Auto) 0.1 x10E3/uL (0.0-0.2) 01/05/24 03:38 Monocyte Dist Width 20.38 % (0.00-20.00) H 01/05/24 03:38 PT 19.7 Seconds (9.0-12.9) H 01/05/24 03:38 INR 1.7 01/05/24 03:38 APTT 34.8 Seconds (25.1-36.5) 01/05/24 03:38 PHA Creatinine Clear 4.62 01/05/24 03:38 Sodium 135 mmol/L (136-145) L 01/05/24 03:38 Potassium 6.0 mmol/L (3.5-5.1) H 01/05/24 03:38 Chloride 93 mmol/L (98-107) L 01/05/24 03:38 Carbon Dioxide 23.1 mmol/L (21.0-31.0) 01/05/24 03:38 Anion Gap 24.9 mEq/L (6.0-15.0) H 01/05/24 03:38 BUN 58 mg/dL (7-25) H 01/05/24 03:38 Creatinine 11.46 mg/dL (0.60-1.20) H 01/05/24 03:38 Est GFR (CKD-EPI) 3.227 mL/Min 01/05/24 03:38 Glucose 114 mg/dL (70-100) H 01/05/24 03:38 Calcium 9.3 mg/dL (8.6-10.3) 01/05/24 03:38 Phosphorus 7.2 mg/dL (2.5-4.5) H 01/05/24 03:38 Magnesium 2.3 mg/dL (1.9-2.7) 01/05/24 03:38 Total Bilirubin 0.7 mg/dl (0.3-1.0) 01/05/24 03:38 AST 16 U/L (13-39) 01/05/24 03:38 ALT 11 U/L (7-52) 01/05/24 03:38 Alkaline Phosphatase 99 U/L (34-104) 01/05/24 03:38 Total Creatine Kinase 29 U/L (30-223) L 01/05/24 03:38 Troponin I High Sens 62.1 pg/mL (0.0-15.0) H* 01/05/24 03:38 Total Protein 6.5 gm/dL (6.4-8.9) 01/05/24 03:38 Albumin 3.0 gm/dL (3.5-5.7) L 01/05/24 03:38 Globulin 3.5 gm/dL 01/05/24 03:38 Albumin/Globulin Ratio 0.9 01/05/24 03:38 Assessment & Plan Assessment/Plan (1) Atrial fibrillation with rapid ventricular response: (2) Missed dialysis: (3) Hyperkalemia: (4) Volume overload: Plan Atrial Fibrillation with Rapid Ventricular Response admit to medicine monitor on telemetry continue diltiazem gtt, titrate to ventricular rate <100 K >4 MG >2 INR subtherapeutic- will give dose of warfarin when med rec completed Missed dialysis Hyperkalemia Volume overload - pt last got HD 12/19, has been refusing treatments - given kayexelate, insulin/D50, calcium gluconate in ED ED spoke to nephrology- plan for hemodialysis later today monitor on telemetry check bmp daily to monitor K FULL CODE VTE prophylaxis- on warfarin IP vs OBS Justification Based on differential dx, clinical care plan, and risk of adverse events, if untreated, in my clinical judgement this patient requires an acute care setting as: INPATIENT because of an expectation ofan over 2 midnight stay. Estimated length of stay (# of days): 2 Documented By: Curtis Lino MD 01/05/2413 Signed By: 01/05/24 0526 [facility]09-04-2024 Progress note Author Danika Lin [facility] October 30, 2023 11:40am Note Date/Time October 30, 2023 11:38am [facility] [address] [place] [address] Nephrology Progress Note Signed Patient: Edita Costa MR# : [id number] : 1950 Acct:[id number] Age/Sex: 73 / F Adm Date: 4 Loc: Room: 3Y5893-9 Type: ADM IN Attending Dr: Vinh Scott MD Copies to: ~ Date of Service: 10/30/2023 Subjective Subjective Narrative: Ms. Costa is a 73 year old female with past medical history of atrial fibrillation, hyperlipidemia, GERD, HTN, diabetes, and ESRD on Saturday schedule at [facility]. She presented to the ED after multiple episodes of diarrhea with blood. She reported 7 episodes of diarrhea daily priorto arriving to ED. diarrhea started 3 days ago. This caused her to miss her dialysis treatment Saturday due to feelings of weakness. In the emergency room patient was found to be in a-fib with RVR which was treated with a diltiazem bolus then diltiazem drip. Labs were significant for leukocytosis, subtherapeutic INR, hyponatremia of 126, hyperkalemia of 5.5, and creatinine 8.81. Stool was positive for occult blood. Troponin was elevated 70.2 then repeat troponin 83.7. Due to subtherapeutic INR, patient received Vitamin K. Patient also received calcium, insulin, and dextrose in the ED due to her hyperkalemia. Patient abdomen/pelvis CT showed possible pneumonia at the bases but did not show acute intra-abdominal process. CXR significant for CHF findings. Patient was given Protonix in ED. She was started on vancomycin and cefepime for possible pneumonia. GI was consulted for GI bleed Nephrology services was consulted ESRD management and dialysis treatment. Patient is examined during dialysis treatment. Patient states her diarrhea has improved since admission. She reports again that she missed dialysis treatment on Saturday due to her severe diarrhea and weakness. She typically receives dialysis MWF. Interim History : Patient was seen and examined at bedside. She denies any chest pain palpation cough or shortness of breath. Her diarrhea has resolved. She is accepted at the correction. She is currently receiving hemodialysis no issues were reported by the HD RN. Exam Physical Exam Vital Signs: Temp Pulse Resp BP Pulse Ox O2 Del Method O2 Flow Rate 96.4 F L 86 16 116/45 L 95 Room Air 1 10/30/23 09:15 10/30/23 11:28 10/30/23 09:15 10/30/23 11:28 10/30/23 09:15 10/30/23 11:16 10/30/23 04:00 Narrative: General: Appears comfortable and not in distress Heart: S1-S2, no rub Lung: Bilateral air entry, no wheezing or crackles Abdomen: Soft, positive bowel sounds Extremities: 1+ edema, no cyanosis Head: Atraumatic, normocephalic Ear: No gross hearing Deficit or external ear redness Eyes: No pallor or redness Neck: No JVD or visible mass Skin: No rashes , warm to touch [employer]: Awake,Alert, following simple command Musculoskeletal: No swelling or limitation of movement of the large joints Psychiatric: Cooperative, normal mood and affect Objective Intake and Output I&O: Intake & Output 10/27/23 10/28/23 10/29/23 10/30/23 23:59 23:59 23:59 23:59 Intake Total 650 / 650 1000 / 1000 500 / 500 700 / 700 Output Total 0 / 0 1751 / 1751 0 / 0 0 / 0 Balance 650 / 650 -751 / -751 500 / 500 700 / 700 Weight 83 kg 83.8 kg 83.8 kg 82.9 kg Meds and Allergies Meds: Active Medications Acetaminophen (Acetaminophen 500 Mg Tablet) 1,000 mg PO Q6HR PRN PRN Reason: Pain Scale 1 - 3 or fever Stop: 10/24/24 01:16 Last Admin: 10/26/23 22:07 Dose: 1,000 mg Bumetanide (Bumetanide 1 Mg Tablet) 1 mg PO QHS CYNTHIA Stop: 10/24/24 21:59 Last Admin: 10/29/23 21:01 Dose: 1 mg Darbepoetin Herbie (Darbepoetin Herbie In Polysorbat 25 Mcg/Ml Vial) 25 mcg IV- PUSHWE CYNTHIA; Protocol Stop: 10/29/24 09:29 Last Admin: 10/30/23 10:18 Dose: 25 mcg Diltiazem HCl (Diltiazem Cd.24hr 120 Mg Cap.Er.24h) 120 mg PO DAILY CYNTHIA Stop: 10/26/24 08:59 Last Admin: 10/29/23 08:35 Dose: 120 mg Sodium Chloride (0.9% Sodium Chloride 1,000 Ml) 1,000 mls @ 0 mls/hr MISCELLANE.Q0M PRN PRN Reason: Dialysis Stop: 10/24/24 08:20 Last Infusion: 10/30/23 10:20 Dose: Infused Doxycycline Hyclate (Doxy 100) 100 mg in 100 mls @ 100 mls/hr IV Q12H [facility] Last Admin: 10/30/23 02:22 Dose: 100 mls/hr Lidocaine (Lidocaine 4% Adh..Patch) 1 patch TOPICAL DAILY CYNTHIA Stop: 10/25/24 08:59 Last Admin: 10/29/23 09:33 Dose: Not Given Midodrine (Midodrine 5 Mg Tablet) 5 mg PO MOWEFR PRN PRN Reason: dialysis Stop: 10/24/24 08:29 Last Admin: 10/25/23 09:01 Dose: 5 mg Midodrine (Midodrine 5 Mg Tablet) 10 mg PO TID.7A.12P.5P [facility] Stop: 10/25/24 16:59 Last Admin: 10/30/23 06:08 Dose: 10 mg Pantoprazole Sodium (Pantoprazole 40 Mg Tablet.Dr) 40 mg PO BID [facility] Stop: 10/28/24 20:59 Last Admin: 10/30/23 09:46 Dose: Not Given Paricalcitol (Paricalcitol 10 Mcg/2 Ml Vial) 5 mcg IV-PUSH MOWEFR CYNTHIA Stop: 10/24/24 08:29 Last Admin: 10/30/23 10:18 Dose: 5 mcg Prochlorperazine Edisylate (Prochlorperazine Edisylate 10 Mg/2 Ml Vial) 5 mg IV- PUSH Q4H PRN PRN Reason: Nausea And Vomiting Stop: 10/25/24 12:11 Last Admin: 10/26/23 16:49 Dose: 5 mg Rosuvastatin Calcium (Rosuvastatin *Nf* 10 Mg Tablet) 20 mg PO DAILY CYNTHIA Stop: 10/25/24 08:59 Last Admin: 10/29/23 08:35 Dose: 20 mg Sevelamer Carbonate (Sevelamer Carbonate 800 Mg Tablet) 2,400 mg PO TID.WITH.MEALS [facility] Stop: 10/24/24 16:59 Last Admin: 10/30/23 08:09 Dose: 2,400 mg Sodium Chloride (Sodium Chloride 0.9 % 10 Ml Syringe) 0 ml IV-PUSH PRN PRN PRN Reason: Flush Stop: 10/23/24 19:07 Last Admin: 10/28/23 11:17 Dose: 10 ml Sodium Chloride (Sodium Chloride 0.9 % 10 Ml Syringe) 10 ml IV-PUSH PRN PRN PRN Reason: Flush Stop: 10/23/24 20:29 Sodium Chloride (Sodium Chloride 0.9 % 10 Ml Syringe) 10 ml IV-PUSH PRN PRN PRN Reason: Flush Stop: 10/24/24 00:37 Sodium Chloride (Sodium Chloride 0.9 % 10 Ml Syringe) 0 ml IV-PUSH QSHIFT [facility] Stop: 10/24/24 05:59 Last Admin: 10/30/23 06:08 Dose: 10 ml Sodium Chloride (Sodium Chloride 0.9 % 10 Ml Syringe) 0 ml IV-PUSH PRN PRN PRN Reason: Flush Stop: 10/24/24 08:20 Last Admin: 10/30/23 10:18 Dose: 10 ml Vancomycin HCl (Vancomycin Liquid 15,000 Mg/300 Ml Soln.Recon) 125 mg PO QID CYNTHIA Stop: 11/05/23 09:01 Last Admin: 10/30/23 08:09 Dose: 125 mg Vitamin B Complex/Vit C/Folic Acid (Folic Acid/Vit Bcomp,C 1 Tab Tablet) 1 tab PO DAILY CYNTHIA Stop: 10/25/24 08:59 Last Admin: 10/29/23 08:35 Dose: 1 tab Warfarin Sodium (Warfarin - Pharmacy Dosing) 1 each MISCELLANE ONCE PRN; Protocol PRN Reason: MARISOL.Pharmacy Consult Stop: 10/25/24 12:28 Allergies Penicillins Allergy (Severe, Verified 10/24/23 19:10) Swelling of Lip/Tongue/Throat, anaphylaxis tuberculin,PPD,multi-puncture Allergy (Intermediate, Verified 10/24/23 19:10) Redness of Skin atorvastatin [From Lipitor] Allergy (Unknown, Verified 10/24/23 19:10) Cramping of the Muscles, bodyaches Results - Nephrology Labs 10/30/23 05:26 10/30/23 05:26 Labs: 10/30/23 05:26 BUN 48 H Creatinine 5.28 H D Radiology Impressions Impressions - last 24 hours: Any impression(s) listed above is documentation that was entered by the reading physician into a diagnostic report(s) for Edita M Mauro. I have reviewed the report(s) and am incorporating any findings in the treatment plan of this patient where applicable. 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 Patient goes to [facility] on Saturday for hemodialysis. (2) Hyponatremia: Assessment/Problem Details: She has chronic hypervolemic hyponatremia due to the ESRD. (3) Atrial fibrillation with RVR: Assessment/Problem Details: Patient has history of a-fib. Was found to be in RVR on ED arrival. Treated withdiltiazem bolus then drip . Currently off the drip. Heart rate has been acceptable. Patient remains on warfarin (4) Supratherapeutic INR: Assessment/Problem Details: Patient presented to the INR which she treated with vitamin K. Patient is back on warfarin (5) C. difficile colitis: Assessment/Problem Details: She has a C. difficile diarrhea. Currently on oral vancomycin. Plan * Hemodialysis today as ordered. * Continue midodrine every 8 hours with additional midodrine with hemodialysis session to help hyperfiltration and achieve EDW. * On PPI for possible GI bleed. Continue to monitor H&H as directed by GI/hospitalist service. Hemoglobin has been stable. * Continue oral vancomycin for C. difficile colitis * Continue Aranesp 25 mcg q. Saturday * Continuously management as per the cardiology and primary hospitalist team. * Check renal function panel in a.m before hemodialysis to adjust order as needed. Documented By: Danika Lin MD 10/30/23 1136 Signed By: <Electronically signed by Danika Lin MD> 10/30/23 1147 [facility] Work Phone: 1(899) 314-261509-03-2024 Progress note Author Vinh Scott [facility] October 29, 2023 12:11pm Note Date/Time October 29, 2023 12:11pm [facility] [address] [place] [address] Hospitalist Progress Note Signed Patient: Edita Costa MR# : [id number] : 1950 Acct:[id number] Age/Sex: 73 / F Adm Date: 4 Loc: Room: [address] [place] [address] Type: ADM IN Attending Dr: Vinh Scott MD Copies to: ~ Date of Service: 10/29/2023 Subjective Subjective Narrative: Patient was seen evaluated at bedside. Appears alert and awake oriented x 3,Continues to show signs of improvement. Afebrile, WBC downtrending appropriately. Remained on oral vanco for C.diff and doxycylcine for PNA. her cough is better with minimal sputum production. Per staff, stools forming, less diarrhea/loose stools. Continue to wean off oxygen as tolerated. PT/OT following. Exam Physical Exam Vital Signs: Temp Pulse Resp BP Pulse Ox O2 Del Method O2 Flow Rate 98.0 F 90 18 110/54 L 96 Nasal Cannula 2 10/29/23 11:35 10/29/23 11:35 10/29/23 11:35 10/29/23 11:35 10/29/23 11:35 10/29/23 11:35 10/29/23 11:35 Narrative: Const General: cooperative, more comfortable HEENT Normal oropharyngeal mucosa without any ulcers or exudates Eyes: Conjunctiva normal Pulmonary Auscultation: Diminished breath sounds, no wheezes Cardiovascular Rate: normal rate Rhythm: irregular rhythm Heart Sounds: S1 normal, S2 normal and no murmurs GI Inspection: non-distended Palpation: soft, not firm and nontender. No rigidity or rebound. Deferred Neuro General: alert, awake and oriented x3. No obvious new focal deficit Musculoskeletal: normal range of motion Extrem General: no cyanosis, no pedal edema Psych Appearance: calm, cooperative Objective Lab Results 10/29/23 04:25 10/29/23 04:25 Microbiology Results Microbiology 10/25/23 00:08 Blood - Right Hand Blood Culture - Preliminary No Growth 4 Days 10/24/23 23:10 Blood - Right Wrist Blood Culture - Preliminary No Growth 4 Days Meds Allergies and Active Meds Allergies Penicillins Allergy (Severe, Verified 10/24/23 19:10) Swelling of Lip/Tongue/Throat, anaphylaxis tuberculin,PPD,multi-puncture Allergy (Intermediate, Verified 10/24/23 19:10) Redness of Skin atorvastatin [From Lipitor] Allergy (Unknown, Verified 10/24/23 19:10) Cramping of the Muscles, bodyaches Active Meds: Active Medications Generic Name Dose Route Start Last Admin Trade Name Freq PRN Reason Stop Dose Admin Acetaminophen 1,000 mg 10/25/23 01:17 10/26/23 22:07 Acetaminophen 500 Mg Tablet PO 10/24/24 01:16 1,000 mg Q6HR PRN Administration Pain Scale 1 - 3 or fever Bumetanide 1 mg 10/25/23 22:00 10/28/23 22:02 Bumetanide 1 Mg Tablet PO 10/24/24 21:59 1 mg QHS CYNTHIA Administration Darbepoetin Herbie 25 mcg 10/30/23 09:30 Darbepoetin Herbie In Polysorbat 25 Mcg/Ml Vial IV-PUSH 10/29/24 09:29 [facility] Protocol Diltiazem HCl 120 mg 10/27/23 09:00 10/29/23 08:35 Diltiazem Cd.24hr 120 Mg Cap.Er.24h PO 10/26/24 08:59 120 mg DAILY CYNTHIA Administration Sodium Chloride 1,000 mls @ 0 mls/hr 10/25/23 08:21 10/28/23 11:22 0.9% Sodium Chloride 1,000 Ml MISCELLANE 10/24/24 08:20 Infused .Q0M PRN Infusion Dialysis As Directed Doxycycline Hyclate 100 mg in 100 mls @ 100 mls/hr 10/26/23 15:00 10/29/23 03:33 Doxy 100 IV 100 mls/hr Q12H CYNTHIA Administration Lidocaine 1 patch 10/26/23 09:00 10/29/23 09:33 Lidocaine 4% Adh..Patch TOPICAL 10/25/24 08:59 Not Given DAILY CYNTHIA Midodrine 5 mg 10/25/23 08:21 10/25/23 09:01 Midodrine 5 Mg Tablet PO 10/24/24 08:29 5 mg MOWEFR PRN Administration dialysis Midodrine 10 mg 10/26/23 17:00 10/29/23 11:39 Midodrine 5 Mg Tablet PO 10/25/24 16:59 10 mg TID.7A.12P.5P CYNTHIA Administration Pantoprazole Sodium 40 mg 10/29/23 21:00 Pantoprazole 40 Mg Tablet. PO 10/28/24 20:59 BID CYNTHIA Paricalcitol 5 mcg 10/25/23 08:30 10/28/23 11:18 Paricalcitol 10 Mcg/2 Ml Vial IV-PUSH 10/24/24 08:29 5 mcg MOWEFR CYNTHIA Administration Prochlorperazine Edisylate 5 mg 10/26/23 12:12 10/26/23 16:49 Prochlorperazine Edisylate 10 Mg/2 Ml Vial IV-PUSH 10/25/24 12:11 5 mg Q4H PRN Administration Nausea And Vomiting Rosuvastatin Calcium 20 mg 10/26/23 09:00 10/29/23 08:35 Rosuvastatin *Nf* 10 Mg Tablet PO 10/25/24 08:59 20 mg DAILY CYNTHIA Administration Sevelamer Carbonate 2,400 mg 10/25/23 17:00 10/29/23 11:40 Sevelamer Carbonate 800 Mg Tablet PO 10/24/24 16:59 2,400 mg TID.WITH.MEALS CYNTHIA Administration Sodium Chloride 0 ml 10/24/23 19:08 10/28/23 11:17 Sodium Chloride 0.9 % 10 Ml Syringe IV-PUSH 10/23/24 19:07 10 ml PRN PRN Administration Flush Sodium Chloride 10 ml 10/24/23 20:30 Sodium Chloride 0.9 % 10 Ml Syringe IV-PUSH 10/23/24 20:29 PRN PRN Flush Sodium Chloride 10 ml 10/25/23 00:38 Sodium Chloride 0.9 % 10 Ml Syringe IV-PUSH 10/24/24 00:37 PRN PRN Flush Sodium Chloride 0 ml 10/25/23 06:00 10/29/23 06:51 Sodium Chloride 0.9 % 10 Ml Syringe IV-PUSH 10/24/24 05:59 10 ml QSHIFT CYNTHIA Administration Sodium Chloride 0 ml 10/25/23 08:21 Sodium Chloride 0.9 % 10 Ml Syringe IV-PUSH 10/24/24 08:20 PRN PRN Flush Vancomycin HCl 125 mg 10/26/23 15:00 10/29/23 08:35 Vancomycin Liquid 15,000 Mg/300 Ml Soln.Recon PO 11/05/23 09:01 125 mg QID CYNTHIA Administration Vitamin B Complex/Vit C/Folic Acid 1 tab 10/26/23 09:00 10/29/23 08:35 Folic Acid/Vit Bcomp,C 1 Tab Tablet PO 10/25/24 08:59 1 tab DAILY CYNTHIA Administration Warfarin Sodium 1 each 10/26/23 12:29 Warfarin - Pharmacy Dosing MISCELLANE 10/25/24 12:28 ONCE PRN ZZ.Pharmacy Consult Protocol Warfarin Sodium 2 mg 10/29/23 17:00 Warfarin 2 Mg Tablet PO 10/29/23 17:01 ONCE ONE A&P - Hospitalist Assessment/Plan (1) Acute GI bleeding: (2) Supratherapeutic INR: (3) Atrial fibrillation with RVR: (4) Acute hyperkalemia: (5) Diarrhea: (6) GERD (gastroesophageal reflux disease): (7) ESRD (end stage renal disease): (8) Elevated troponin: (9) Hyponatremia: Plan GI bleed unlikely- H/H stable- No signs of overt GI bleed. Diarrhea-pt reports diarrhea since Saturday morning, no complaints of abdominal pain, nausea or vomiting Evaluated by GI, clinically no overt signs of bleeding, recommended conservativetherapy Continue to maintain PPI daily H/H stable so far, will transfuse as needed Stool bacterial workup negative to date Positive for C.diff, started on treatment. Stools are forming gradually, less diarrhea. Clinically improving Daily labs C.diff colitis infection Leukocytosis downtrending to 14.1 Denies abdominal pain, C. difficile positive, stools forming gradually. CT AP done on admission, no obvious acute intra-abdominal pathology, showed bilateral consolidations in the lower lobes, concern for pneumonia, DiscontinuedLevaquin given her positive C. difficile and high risk antibiotics for C. difficile. Continue IV doxycycline for now for pneumonia coverage, plan for 5 days course in total. Blood cultures so far negative C.diff positive. started on oral vancomycin Daily labs A-fib with RVR, off Cardizem drip Cardiology consult and following, meds adjusted INR today 2.2. GI evaluated and does not suspected acute GI bleed, currently being worked up for diarrhea H/H stable, continue to monitor for any signs of overt GI bleed, will transfuse blood as needed Resumed warfarin dosing per pharmacy Fluid removal with dialysis session Elevated troponin-x 2, but remains flat, denies any chest pain Acute hyperkalemia-with underlying end-stage renal disease, nephrology consultedfor dialysis treatment Chronic hypotension on midodrine therapy at home, resumed DVT PPx?SCDs, warfarin Diet order?heart healthy, ESRD on HD, 1200 mL fluid restriction CODE STATUS?full code Discussed with patient at bedside, questions answered, patient in agreement withabove plan CM following for appropriate disposition, anticipate discharge plan in 1-2 days if continues to get better Documented By: Vinh Scott MD 10/29/23 12 04 Signed By: <Electronically signed by Vinh Scott MD> 10/29/23 [facility] Work Phone: 1(530) 224-113109-03-2024 Progress note Author Danika Lin [facility] October 29, 2023 10:51am Note Date/Time October 29, 2023 10:51am [facility] [address] [place] [address] Nephrology Progress Note Signed Patient: Edita Costa MR# : [id number] : 1950 Acct:[id number] Age/Sex: 73 / F Adm Date: 4 Loc: Room: [address] [place] [address] Type: ADM IN Attending Dr: Vinh Scott MD Copies to: ~ Date of Service: 10/29/2023 Subjective Subjective Narrative: Ms. Costa is a 73 year old female with past medical history of atrial fibrillation, hyperlipidemia, GERD, HTN, diabetes, and ESRD on Saturday schedule at [facility]. She presented to the ED after multiple episodes of diarrhea with blood. She reported 7 episodes of diarrhea daily priorto arriving to ED. diarrhea started 3 days ago. This caused her to miss her dialysis treatment Saturday due to feelings of weakness. In the emergency room patient was found to be in a-fib with RVR which was treated with a diltiazem bolus then diltiazem drip. Labs were significant for leukocytosis, subtherapeutic INR, hyponatremia of 126, hyperkalemia of 5.5, and creatinine 8.81. Stool was positive for occult blood. Troponin was elevated 70.2 then repeat troponin 83.7. Due to subtherapeutic INR, patient received Vitamin K. Patient also received calcium, insulin, and dextrose in the ED due to her hyperkalemia. Patient abdomen/pelvis CT showed possible pneumonia at the bases but did not show acute intra-abdominal process. CXR significant for CHF findings. Patient was given Protonix in ED. She was started on vancomycin and cefepime for possible pneumonia. GI was consulted for GI bleed Nephrology services was consulted ESRD management and dialysis treatment. Patient is examined during dialysis treatment. Patient states her diarrhea has improved since admission. She reports again that she missed dialysis treatment on Saturday due to her severe diarrhea and weakness. She typically receives dialysis MWF. Interim History : Patient was seen and examined in her room. She reported that she has a 3-4 bowel movements last 24 hours and her stool is getting formed. She is still notable to tolerate the diet due to the nausea. She denies any chest pain palpation cough or shortness of breath. Exam Physical Exam Vital Signs: Temp Pulse Resp BP Pulse Ox O2 Del Method O2 Flow Rate 97.8 F 77 18 126/78 97 Nasal Cannula 2 10/29/23 08:00 10/29/23 08:00 10/29/23 08:00 10/29/23 08:00 10/29/23 08:00 10/29/23 08:00 10/29/23 08:00 Narrative: General: Appears comfortable and not in distress Heart: S1-S2, no rub Lung: Bilateral air entry, no wheezing or crackles Abdomen: Soft, positive bowel sounds Extremities: 1+ edema, no cyanosis Head: Atraumatic, normocephalic Ear: No gross hearing Deficit or external ear redness Eyes: No pallor or redness Neck: No JVD or visible mass Skin: No rashes , warm to touch [employer]KER: Awake,Alert, following simple command Musculoskeletal: No swelling or limitation of movement of the large joints Psychiatric: Cooperative, normal mood and affect Objective Intake and Output I&O: Intake & Output 10/26/23 10/27/23 10/28/23 10/29/23 23:59 23:59 23:59 23:59 Intake Total 650 / 650 650 / 650 1000 / 1000 100 / 100 Output Total 400 / 400 0 / 0 1751 / 1751 0 / 0 Balance 250 / 250 650 / 650 -751 / -751 100 / 100 Weight 84.2 kg 83 kg 83.8 kg 83.8 kg Meds and Allergies Meds: Active Medications Acetaminophen (Acetaminophen 500 Mg Tablet) 1,000 mg PO Q6HR PRN PRN Reason: Pain Scale 1 - 3 or fever Stop: 10/24/24 01:16 Last Admin: 10/26/23 22:07 Dose: 1,000 mg Bumetanide (Bumetanide 1 Mg Tablet) 1 mg PO QHS [facility] Stop: 10/24/24 21:59 Last Admin: 10/28/23 22:02 Dose: 1 mg Darbepoetin Herbie (Darbepoetin Herbie In Polysorbat 25 Mcg/Ml Vial) 25 mcg IV- PUSHWE [facility]; Protocol Stop: 10/29/24 09:29 Diltiazem HCl (Diltiazem Cd.24hr 120 Mg Cap.Er.24h) 120 mg PO DAILY [facility] Stop: 10/26/24 08:59 Last Admin: 10/29/23 08:35 Dose: 120 mg Sodium Chloride (0.9% Sodium Chloride 1,000 Ml) 1,000 mls @ 0 mls/hr MISCELLANE.Q0M PRN PRN Reason: Dialysis Stop: 10/24/24 08:20 Last Infusion: 10/28/23 11:22 Dose: Infused Doxycycline Hyclate (Doxy 100) 100 mg in 100 mls @ 100 mls/hr IV Q12H [facility] Last Admin: 10/29/23 03:33 Dose: 100 mls/hr Lidocaine (Lidocaine 4% Adh..Patch) 1 patch TOPICAL DAILY [facility] Stop: 10/25/24 08:59 Last Admin: 10/29/23 09:33 Dose: Not Given Midodrine (Midodrine 5 Mg Tablet) 5 mg PO MOWEFR PRN PRN Reason: dialysis Stop: 10/24/24 08:29 Last Admin: 10/25/23 09:01 Dose: 5 mg Midodrine (Midodrine 5 Mg Tablet) 10 mg PO TID.7A.12P.5P [facility] Stop: 10/25/24 16:59 Last Admin: 10/29/23 06:50 Dose: 10 mg Pantoprazole Sodium (Pantoprazole 40 Mg Tablet.Dr) 40 mg PO BID [facility] Stop: 10/28/24 20:59 Paricalcitol (Paricalcitol 10 Mcg/2 Ml Vial) 5 mcg IV-PUSH MOWEFR [facility] Stop: 10/24/24 08:29 Last Admin: 10/28/23 11:18 Dose: 5 mcg Prochlorperazine Edisylate (Prochlorperazine Edisylate 10 Mg/2 Ml Vial) 5 mg IV- PUSH Q4H PRN PRN Reason: Nausea And Vomiting Stop: 10/25/24 12:11 Last Admin: 10/26/23 16:49 Dose: 5 mg Rosuvastatin Calcium (Rosuvastatin *Nf* 10 Mg Tablet) 20 mg PO DAILY [facility] Stop: 10/25/24 08:59 Last Admin: 10/29/23 08:35 Dose: 20 mg Sevelamer Carbonate (Sevelamer Carbonate 800 Mg Tablet) 2,400 mg PO TID.WITH.MEALS [facility] Stop: 10/24/24 16:59 Last Admin: 10/29/23 08:35 Dose: 2,400 mg Sodium Chloride (Sodium Chloride 0.9 % 10 Ml Syringe) 0 ml IV-PUSH PRN PRN PRN Reason: Flush Stop: 10/23/24 19:07 Last Admin: 10/28/23 11:17 Dose: 10 ml Sodium Chloride (Sodium Chloride 0.9 % 10 Ml Syringe) 10 ml IV-PUSH PRN PRN PRN Reason: Flush Stop: 10/23/24 20:29 Sodium Chloride (Sodium Chloride 0.9 % 10 Ml Syringe) 10 ml IV-PUSH PRN PRN PRN Reason: Flush Stop: 10/24/24 00:37 Sodium Chloride (Sodium Chloride 0.9 % 10 Ml Syringe) 0 ml IV-PUSH QSHIFT [facility] Stop: 10/24/24 05:59 Last Admin: 10/29/23 06:51 Dose: 10 ml Sodium Chloride (Sodium Chloride 0.9 % 10 Ml Syringe) 0 ml IV-PUSH PRN PRN PRN Reason: Flush Stop: 10/24/24 08:20 Vancomycin HCl (Vancomycin Liquid 15,000 Mg/300 Ml Soln.Recon) 125 mg PO QID [facility] Stop: 11/05/23 09:01 Last Admin: 10/29/23 08:35 Dose: 125 mg Vitamin B Complex/Vit C/Folic Acid (Folic Acid/Vit Bcomp,C 1 Tab Tablet) 1 tab PO DAILY [facility] Stop: 10/25/24 08:59 Last Admin: 10/29/23 08:35 Dose: 1 tab Warfarin Sodium (Warfarin - Pharmacy Dosing) 1 each MISCELLANE ONCE PRN; Protocol PRN Reason: ZZ.Pharmacy Consult Stop: 10/25/24 12:28 Allergies Penicillins Allergy (Severe, Verified 10/24/23 19:10) Swelling of Lip/Tongue/Throat, anaphylaxis tuberculin,PPD,multi-puncture Allergy (Intermediate, Verified 10/24/23 19:10) Redness of Skin atorvastatin [From Lipitor] Allergy (Unknown, Verified 10/24/23 19:10) Cramping of the Muscles, bodyaches Results - Nephrology Labs 10/29/23 04:25 10/29/23 04:25 Labs: 10/29/23 04:25 BUN 35 H D Creatinine 4.07 H D Phosphorus 4.0 Albumin 2.1 L Radiology Impressions Impressions - last 24 hours: Any impression(s) listed above is documentation that was entered by the reading physician into a diagnostic report(s) for Edita Costa. I have reviewed the report(s) and am incorporating any findings in the treatment plan of this patient where applicable. 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 Patient goes to [facility] on Saturday for hemodialysis. (2) Hyponatremia: Assessment/Problem Details: She has chronic hypervolemic hyponatremia due to the ESRD. (3) Atrial fibrillation with RVR: Assessment/Problem Details: Patient has history of a-fib. Was found to be in RVR on ED arrival. Treated withdiltiazem bolus then drip . Currently off the drip. Heart rate has been acceptable. Patient remains on warfarin (4) Supratherapeutic INR: Assessment/Problem Details: Patient presented to the INR which she treated with vitamin K. Patient is back on warfarin (5) C. difficile colitis: Assessment/Problem Details: She has a C. difficile diarrhea. Currently on oral vancomycin. Plan * No need for dialysis today. Next [facility] will be tomorrow as per schedule. Will do ultrafiltration as tolerated tomorrow. * Continue midodrine every 8 hours with additional midodrine with hemodialysis session to help hyperfiltration and achieve EDW. * On PPI for possible GI bleed. Continue to monitor H&H as directed by GI/hospitalist service. Hemoglobin has been stable. * Continue oral vancomycin for C. difficile colitis * Continue Aranesp 40 mcg q. Saturday * Continuously management as per the cardiology and primary hospitalist team. * Check renal function panel in a.m before hemodialysis to adjust order as needed. Documented By: Danika Lin MD 10/29/23 1043 Signed By: <Electronically signed by Danika Lin MD> 10/29/23 1051 [facility] Work Phone: [phone] 826-800809-02-2024 Progress note Author Vinh Scott [facility] October 28, 2023 12:55pm Note Date/Time October 28, 2023 12:55pm [facility] [address] [place] [address] Hospitalist Progress Note Signed Patient: Edita Costa MR# : [id number] : 1950 Acct:[id number] Age/Sex: 73 / F Adm Date: 4 Loc: Room: [address] [place] [address] Type: ADM IN Attending Dr: Vinh Scott MD Copies to: ~ Date of Service: 10/28/2023 Subjective Subjective Narrative: Patient was seen evaluated at dialysis unit, getting dialysis session today. Appears alert and awake oriented x 3, reports slight improvement compared to yesterday, came back positive for C. difficile and started on oral vancomycin, she is on IV doxycycline for PNA. Tolerating oral diet. Reports her stools are abit forming at this point. Remained afebrile, WBC downtrending 16.6 from 20.5. Continue current management. Exam Physical Exam Vital Signs: Temp Pulse Resp BP Pulse Ox O2 Del Method O2 Flow Rate 98.3 F 91 16 116/43 L 96 Nasal Cannula 2 10/28/23 09:15 10/28/23 12:30 10/28/23 09:15 10/28/23 12:30 10/28/23 09:15 10/28/23 09:15 10/28/23 08:49 Narrative: Const General: cooperative, tired appearing HEENT Normal oropharyngeal mucosa without any ulcers or exudates Eyes: Conjunctiva normal Pulmonary Auscultation: Diminished breath sounds, no wheezes Cardiovascular Rate: normal rate Rhythm: irregular rhythm Heart Sounds: S1 normal, S2 normal and no murmurs GI Inspection: non-distended Palpation: soft, not firm and nontender. No rigidity or rebound. Deferred Neuro General: alert, awake and oriented x3. No obvious new focal deficit Musculoskeletal: normal range of motion Extrem General: no cyanosis, no pedal edema Psych Appearance: calm, cooperative Objective Lab Results 10/28/23 04:57 10/28/23 04:57 Microbiology Results Microbiology 10/25/23 00:08 Blood - Right Hand Blood Culture - Preliminary No Growth 3 Days 10/24/23 23:10 Blood - Right Wrist Blood Culture - Preliminary No Growth 3 Days Meds Allergies and Active Meds Allergies Penicillins Allergy (Severe, Verified 10/24/23 19:10) Swelling of Lip/Tongue/Throat, anaphylaxis tuberculin,PPD,multi-puncture Allergy (Intermediate, Verified 10/24/23 19:10) Redness of Skin atorvastatin [From Lipitor] Allergy (Unknown, Verified 10/24/23 19:10) Cramping of the Muscles, bodyaches Active Meds: Active Medications Generic Name Dose Route Start Last Admin Trade Name Freq PRN Reason Stop Dose Admin Acetaminophen 1,000 mg 10/25/23 01:17 10/26/23 22:07 Acetaminophen 500 Mg Tablet PO 10/24/24 01:16 1,000 mg Q6HR PRN Administration Pain Scale 1 - 3 or fever Bumetanide 1 mg 10/25/23 22:00 10/27/23 22:31 Bumetanide 1 Mg Tablet PO 10/24/24 21:59 Not Given QHS [facility] Darbepoetin Herbie 25 mcg 10/30/23 09:30 Darbepoetin Herbie In Polysorbat 25 Mcg/Ml Vial IV-PUSH 10/29/24 09:29 WE [facility] Protocol Diltiazem HCl 120 mg 10/27/23 09:00 10/27/23 08:43 Diltiazem Cd.24hr 120 Mg Cap.Er.24h PO 10/26/24 08:59 120 mg DAILY [facility] Administration Sodium Chloride 1,000 mls @ 0 mls/hr 10/25/23 08:21 10/28/23 11:22 0.9% Sodium Chloride 1,000 Ml MISCELLANE 10/24/24 08:20 Infused .Q0M PRN Infusion Dialysis As Directed Doxycycline Hyclate 100 mg in 100 mls @ 100 mls/hr 10/26/23 15:00 10/28/23 03:10 Doxy 100 IV 100 mls/hr Q12H [facility] Administration Lidocaine 1 patch 10/26/23 09:00 10/28/23 08:38 Lidocaine 4% Adh..Patch TOPICAL 10/25/24 08:59 1 patch DAILY [facility] Administration Midodrine 5 mg 10/25/23 08:21 10/25/23 09:01 Midodrine 5 Mg Tablet PO 10/24/24 08:29 5 mg MOWEFR PRN Administration dialysis Midodrine 10 mg 10/26/23 17:00 10/28/23 06:26 Midodrine 5 Mg Tablet PO 10/25/24 16:59 10 mg TID.7A.12P.5P [facility] Administration Pantoprazole Sodium 40 mg 10/25/23 09:00 10/28/23 08:46 Pantoprazole 40 Mg Vial IV-PUSH 10/24/24 08:59 Not Given BID [facility] Paricalcitol 5 mcg 10/25/23 08:30 10/28/23 11:18 Paricalcitol 10 Mcg/2 Ml Vial IV-PUSH 10/24/24 08:29 5 mcg MOWEFR [facility] Administration Prochlorperazine Edisylate 5 mg 10/26/23 12:12 10/26/23 16:49 Prochlorperazine Edisylate 10 Mg/2 Ml Vial IV-PUSH 10/25/24 12:11 5 mg Q4H PRN Administration Nausea And Vomiting Rosuvastatin Calcium 20 mg 10/26/23 09:00 10/27/23 08:43 Rosuvastatin *Nf* 10 Mg Tablet PO 10/25/24 08:59 20 mg DAILY [facility] Administration Sevelamer Carbonate 2,400 mg 10/25/23 17:00 10/28/23 08:37 Sevelamer Carbonate 800 Mg Tablet PO 10/24/24 16:59 2,400 mg TID.WITH.MEALS [facility] Administration Sodium Chloride 0 ml 10/24/23 19:08 10/28/23 11:17 Sodium Chloride 0.9 % 10 Ml Syringe IV-PUSH 10/23/24 19:07 10 ml PRN PRN Administration Flush Sodium Chloride 10 ml 10/24/23 20:30 Sodium Chloride 0.9 % 10 Ml Syringe IV-PUSH 10/23/24 20:29 PRN PRN Flush Sodium Chloride 10 ml 10/25/23 00:38 Sodium Chloride 0.9 % 10 Ml Syringe IV-PUSH 10/24/24 00:37 PRN PRN Flush Sodium Chloride 0 ml 10/25/23 06:00 10/28/23 06:27 Sodium Chloride 0.9 % 10 Ml Syringe IV-PUSH 10/24/24 05:59 10 ml QSHIFT [facility] Administration Sodium Chloride 10 ml 10/25/23 01:22 10/25/23 21:45 Sodium Chloride 0.9 % 10 Ml Vial.Pf INJECTION 10/24/24 01:21 10 ml PRN PRN Administration Dilution Sodium Chloride 10 ml 10/25/23 01:22 Sodium Chloride 0.9 % 10 Ml Syringe IV-PUSH 10/24/24 01:21 PRN PRN Flush Sodium Chloride 0 ml 10/25/23 08:21 Sodium Chloride 0.9 % 10 Ml Syringe IV-PUSH 10/24/24 08:20 PRN PRN Flush Vancomycin HCl 125 mg 10/26/23 15:00 10/28/23 08:38 Vancomycin Liquid 15,000 Mg/300 Ml Soln.Recon PO 11/05/23 09:01 125 mg QID [facility] Administration Vitamin B Complex/Vit C/Folic Acid 1 tab 10/26/23 09:00 10/27/23 08:43 Folic Acid/Vit Bcomp,C 1 Tab Tablet PO 10/25/24 08:59 1 tab DAILY [facility] Administration Warfarin Sodium 1 each 10/26/23 12:29 Warfarin - Pharmacy Dosing MISCELLANE 10/25/24 12:28 ONCE PRN ZZ.Pharmacy Consult Protocol A&P - Hospitalist Assessment/Plan (1) Acute GI bleeding: (2) Supratherapeutic INR: (3) Atrial fibrillation with RVR: (4) Acute hyperkalemia: (5) Diarrhea: (6) GERD (gastroesophageal reflux disease): (7) ESRD (end stage renal disease): (8) Elevated troponin: (9) Hyponatremia: Plan Suspected acute GI bleed- H&H 9.1.2, heme stool positive, H&H slight drop, recheck in a.m., INR supratherapeutic, no active bleeding noted Diarrhea-pt reports diarrhea since Saturday morning, no complaints of abdominal pain, nausea or vomiting Evaluated by GI, clinically no overt signs of bleeding, recommended conservativetherapy Continue to maintain PPI daily H/H stable so far, will transfuse as needed Sill with diarrhea about 7 times daily for the past 4 days Stool bacterial workup negative to date Positive for C.diff, started on treatment Daily labs C.diff colitis infection Leukocytosis, remained elevated at 20 Denies abdominal pain, but diarrhea, C. difficile pending, stool studies pending CT AP done on admission, no obvious acute intra-abdominal pathology, showed bilateral consolidations in the lower lobes, concern for pneumonia, DiscontinuedLevaquin given her positive C. difficile and high risk antibiotics for C. difficile. Continue IV doxycycline for now for pneumonia coverage, plan for 5 days course in total. Blood cultures so far negative C.diff positive. started on oral vancomycin Daily labs A-fib with RVR, off Cardizem drip Cardiology consult and following, meds adjusted INR today 1.8. GI evaluated and does not suspected acute GI bleed, currently being worked up for diarrhea H/H stable, continue to monitor for any signs of overt GI bleed, will transfuse blood as needed Resumed warfarin dosing per pharmacy Fluid removal with dialysis session Elevated troponin-x 2, but remains flat, denies any chest pain Acute hyperkalemia-with underlying end-stage renal disease, nephrology consultedfor dialysis treatment Chronic hypotension on midodrine therapy at home, resumed DVT PPx?SCDs, warfarin Diet order?heart healthy, ESRD on HD, 1200 mL fluid restriction CODE STATUS?full code Discussed with patient at bedside, questions answered, patient in agreement withabove plan Documented By: Vinh Scott MD 10/28/23 12 51 Signed By: <Electronically signed by Vinh Scott MD> 10/28/23 8711 [facility] Work Phone: 1(268) 346-271909-02-2024 Progress note Author Danika Lin [facility] October 28, 2023 11:34am Note Date/Time October 28, 2023 11:23am [facility] [address] [place] [address] Nephrology Progress Note Signed Patient: Edita Costa MR# : [id number] : 1950 Acct:[id number] Age/Sex: 73 / F Adm Date: 4 Loc: Room: [address] [place] [address] Type: ADM IN Attending Dr: Vinh Scott MD Copies to: ~ Date of Service: 10/28/2023 Subjective Subjective Narrative: Ms. Costa is a 73 year old female with past medical history of atrial fibrillation, hyperlipidemia, GERD, HTN, diabetes, and ESRD on Saturday schedule at [facility]. She presented to the ED after multiple episodes of diarrhea with blood. She reported 7 episodes of diarrhea daily priorto arriving to ED. diarrhea started 3 days ago. This caused her to miss her dialysis treatment Saturday due to feelings of weakness. In the emergency room patient was found to be in a-fib with RVR which was treated with a diltiazem bolus then diltiazem drip. Labs were significant for leukocytosis, subtherapeutic INR, hyponatremia of 126, hyperkalemia of 5.5, and creatinine 8.81. Stool was positive for occult blood. Troponin was elevated 70.2 then repeat troponin 83.7. Due to subtherapeutic INR, patient received Vitamin K. Patient also received calcium, insulin, and dextrose in the ED due to her hyperkalemia. Patient abdomen/pelvis CT showed possible pneumonia at the bases but did not show acute intra-abdominal process. CXR significant for CHF findings. Patient was given Protonix in ED. She was started on vancomycin and cefepime for possible pneumonia. GI was consulted for GI bleed Nephrology services was consulted ESRD management and dialysis treatment. Patient is examined during dialysis treatment. Patient states her diarrhea has improved since admission. She reports again that she missed dialysis treatment on Saturday due to her severe diarrhea and weakness. She typically receives dialysis MWF. Interim History : Patient was seen and examined in her room. She reported that her diarrhea has improved. She denies any chest pain palpation cough nausea vomiting diarrhea shortness of breath. Exam Physical Exam Vital Signs: Temp Pulse Resp BP Pulse Ox O2 Del Method O2 Flow Rate 98.3 F 120 H 16 120/29 L 96 Nasal Cannula 2 10/28/23 09:15 10/28/23 10:00 10/28/23 09:15 10/28/23 10:00 10/28/23 09:15 10/28/23 09:15 10/28/23 08:49 Narrative: General: Appears comfortable and not in distress Heart: S1-S2, no rub Lung: Bilateral air entry, no wheezing or crackles Abdomen: Soft, positive bowel sounds Extremities: No edema, no cyanosis Head: Atraumatic, normocephalic Ear: No gross hearing Deficit or external ear redness Eyes: No pallor or redness Neck: No JVD or visible mass Skin: No rashes , warm to touch [employer]: Awake,Alert, following simple command Musculoskeletal: No swelling or limitation of movement of the large joints Psychiatric: Cooperative, normal mood and affect Objective Intake and Output I&O: Intake & Output 10/25/23 10/26/23 10/27/23 10/28/23 23:59 23:59 23:59 23:59 Intake Total 1950.25 / 1950.25 650 / 650 650 / 650 Output Total 500 / 500 400 / 400 0 / 0 Balance 1450.25 / 1450.25 250 / 250 650 / 650 Weight 83.6 kg 84.2 kg 83 kg 83.8 kg Meds and Allergies Meds: Active Medications Acetaminophen (Acetaminophen 500 Mg Tablet) 1,000 mg PO Q6HR PRN PRN Reason: Pain Scale 1 - 3 or fever Stop: 10/24/24 01:16 Last Admin: 10/26/23 22:07 Dose: 1,000 mg Bumetanide (Bumetanide 1 Mg Tablet) 1 mg PO QHS [facility] Stop: 10/24/24 21:59 Last Admin: 10/27/23 22:31 Dose: Not Given Darbepoetin Herbie (Darbepoetin Herbie In Polysorbat 25 Mcg/Ml Vial) 25 mcg IV- PUSHWE [facility]; Protocol Stop: 10/29/24 09:29 Diltiazem HCl (Diltiazem Cd.24hr 120 Mg Cap.Er.24h) 120 mg PO DAILY [facility] Stop: 10/26/24 08:59 Last Admin: 10/27/23 08:43 Dose: 120 mg Sodium Chloride (0.9% Sodium Chloride 1,000 Ml) 1,000 mls @ 0 mls/hr MISCELLANE.Q0M PRN PRN Reason: Dialysis Stop: 10/24/24 08:20 Last Admin: 10/25/23 10:20 Dose: 999 mls/hr Doxycycline Hyclate (Doxy 100) 100 mg in 100 mls @ 100 mls/hr IV Q12H [facility] Last Admin: 10/28/23 03:10 Dose: 100 mls/hr Lidocaine (Lidocaine 4% Adh..Patch) 1 patch TOPICAL DAILY [facility] Stop: 10/25/24 08:59 Last Admin: 10/28/23 08:38 Dose: 1 patch Midodrine (Midodrine 5 Mg Tablet) 5 mg PO MOWEFR PRN PRN Reason: dialysis Stop: 10/24/24 08:29 Last Admin: 10/25/23 09:01 Dose: 5 mg Midodrine (Midodrine 5 Mg Tablet) 10 mg PO TID.7A.12P.5P [facility] Stop: 10/25/24 16:59 Last Admin: 10/28/23 06:26 Dose: 10 mg Pantoprazole Sodium (Pantoprazole 40 Mg Vial) 40 mg IV-PUSH BID [facility] Stop: 10/24/24 08:59 Last Admin: 10/28/23 08:46 Dose: Not Given Paricalcitol (Paricalcitol 10 Mcg/2 Ml Vial) 5 mcg IV-PUSH MOWEFR [facility] Stop: 10/24/24 08:29 Last Admin: 10/25/23 10:19 Dose: 5 mcg Prochlorperazine Edisylate (Prochlorperazine Edisylate 10 Mg/2 Ml Vial) 5 mg IV- PUSH Q4H PRN PRN Reason: Nausea And Vomiting Stop: 10/25/24 12:11 Last Admin: 10/26/23 16:49 Dose: 5 mg Rosuvastatin Calcium (Rosuvastatin *Nf* 10 Mg Tablet) 20 mg PO DAILY [facility] Stop: 10/25/24 08:59 Last Admin: 10/27/23 08:43 Dose: 20 mg Sevelamer Carbonate (Sevelamer Carbonate 800 Mg Tablet) 2,400 mg PO TID.WITH.MEALS [facility] Stop: 10/24/24 16:59 Last Admin: 10/28/23 08:37 Dose: 2,400 mg Sodium Chloride (Sodium Chloride 0.9 % 10 Ml Syringe) 0 ml IV-PUSH PRN PRN PRN Reason: Flush Stop: 10/23/24 19:07 Last Admin: 10/25/23 10:19 Dose: 10 ml Sodium Chloride (Sodium Chloride 0.9 % 10 Ml Syringe) 10 ml IV-PUSH PRN PRN PRN Reason: Flush Stop: 10/23/24 20:29 Sodium Chloride (Sodium Chloride 0.9 % 10 Ml Syringe) 10 ml IV-PUSH PRN PRN PRN Reason: Flush Stop: 10/24/24 00:37 Sodium Chloride (Sodium Chloride 0.9 % 10 Ml Syringe) 0 ml IV-PUSH QSHIFT [facility] Stop: 10/24/24 05:59 Last Admin: 10/28/23 06:27 Dose: 10 ml Sodium Chloride (Sodium Chloride 0.9 % 10 Ml Vial.Pf) 10 ml INJECTION PRN PRN PRN Reason: Dilution Stop: 10/24/24 01:21 Last Admin: 10/25/23 21:45 Dose: 10 ml Sodium Chloride (Sodium Chloride 0.9 % 10 Ml Syringe) 10 ml IV-PUSH PRN PRN PRN Reason: Flush Stop: 10/24/24 01:21 Sodium Chloride (Sodium Chloride 0.9 % 10 Ml Syringe) 0 ml IV-PUSH PRN PRN PRN Reason: Flush Stop: 10/24/24 08:20 Vancomycin HCl (Vancomycin Liquid 15,000 Mg/300 Ml Soln.Recon) 125 mg PO QID [facility] Stop: 11/05/23 09:01 Last Admin: 10/28/23 08:38 Dose: 125 mg Vitamin B Complex/Vit C/Folic Acid (Folic Acid/Vit Bcomp,C 1 Tab Tablet) 1 tab PO DAILY [facility] Stop: 10/25/24 08:59 Last Admin: 10/27/23 08:43 Dose: 1 tab Warfarin Sodium (Warfarin - Pharmacy Dosing) 1 each MISCELLANE ONCE PRN; Protocol PRN Reason: ZZ.Pharmacy Consult Stop: 10/25/24 12:28 Allergies Penicillins Allergy (Severe, Verified 10/24/23 19:10) Swelling of Lip/Tongue/Throat, anaphylaxis tuberculin,PPD,multi-puncture Allergy (Intermediate, Verified 10/24/23 19:10) Redness of Skin atorvastatin [From Lipitor] Allergy (Unknown, Verified 10/24/23 19:10) Cramping of the Muscles, bodyaches Results - Nephrology Labs 10/28/23 04:57 10/28/23 04:57 Labs: 10/28/23 04:57 BUN 69 H Creatinine 7.22 H D Albumin 2.1 L Radiology Impressions Impressions - last 24 hours: Any impression(s) listed above is documentation that was entered by the reading physician into a diagnostic report(s) for Edita Costa. I have reviewed the report(s) and am incorporating any findings in the treatment plan of this patient where applicable. 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 Patient goes to [facility] on Saturday for hemodialysis. (2) Hyponatremia: Assessment/Problem Details: She has a chronic hypervolemic hyponatremia due to the ESRD. (3) Atrial fibrillation with RVR: Assessment/Problem Details: P Plan: Patient has history of a-fib. Was found to be in RVR on ED arrival. Treated withdiltiazem bolus then drip . Currently off the drip. Heart rate has been acceptable. Patient remains on warfarin (4) Supratherapeutic INR: Plan: Patient presented to the INR which she treated with vitamin K. Patient is back on warfarin (5) C. difficile colitis: Assessment/Problem Details: She has a C. difficile diarrhea. Currently on oral vancomycin. Plan * Hemodialysis today as ordered. * Continue midodrine every 8 hours with additional midodrine with hemodialysis session to help hyperfiltration and achieve EDW. * On PPI for possible GI bleed. Continue to monitor H&H as directed by GI/hospitalist service. Hemoglobin has been stable * Continue oral vancomycin for C. difficile colitis * Continue Aranesp 40 mcg q. Saturday * Continuously management as per the cardiology and primary hospitalist team. * Check renal function panel in a.m before hemodialysis to adjust order as needed. Documented By: Danika Lin MD 10/28/23 1119 Signed By: <Electronically signed by Danika Lin MD> 10/28/23 2809 [facility] Work Phone: [phone]) 826-136709-01-2024 Progress note Author Vinh Scott [facility] October 27, 2023 1:28pm Note Date/Time October 27, 2023 1:28pm [facility] [address] [place] [address] Hospitalist Progress Note Signed Patient: Edita Costa MR# : [id number] : 1950 Acct:[id number] Age/Sex: 73 / F Adm Date: 4 Loc: Room: [address] [place] [address] Type: ADM IN Attending Dr: Vinh Scott MD Copies to: ~ Date of Service: 10/27/2023 Subjective Subjective Narrative: Patient was seen evaluated at bedside, appears alert and awake oriented x 3, reports slight improvement compared to yesterday, came back positive for C. difficile and started on oral vancomycin, she is on IV doxycycline for PNA. hemodynamics more stable today, restarted on home dose Midodrine 10 mg TID. Denies nausea, vomiting, still has loose stools but a bit better than yesterday.Tolerating oral diet. Exam Physical Exam Vital Signs: Temp Pulse Resp BP Pulse Ox O2 Del Method 98.3 F 98 18 108/65 96 Room Air 10/27/23 12:10/27/23 12:10/27/23 12:10/27/23 12:10/27/23 12:10/27/23 12:00 Narrative: Const General: cooperative, tired appearing HEENT Normal oropharyngeal mucosa without any ulcers or exudates Eyes: Conjunctiva normal Pulmonary Auscultation: Diminished breath sounds, bibasilar rhonchi, no wheezes Cardiovascular Rate: normal rate Rhythm: irregular rhythm Heart Sounds: S1 normal, S2 normal and no murmurs GI Inspection: non-distended Palpation: soft, not firm and nontender. No rigidity or rebound. Deferred Neuro General: alert, awake and oriented x3. No obvious new focal deficit Musculoskeletal: normal range of motion Extrem General: no cyanosis, no pedal edema Psych Appearance: calm, cooperative Objective Lab Results 10/27/23 05:04 10/27/23 05:04 Microbiology Results Microbiology 10/25/23 00:08 Blood - Right Hand Blood Culture - Preliminary No Growth 2 Days 10/24/23 23:10 Blood - Right Wrist Blood Culture - Preliminary No Growth 2 Days Meds Allergies and Active Meds Allergies Penicillins Allergy (Severe, Verified 10/24/23 19:10) Swelling of Lip/Tongue/Throat, anaphylaxis tuberculin,PPD,multi-puncture Allergy (Intermediate, Verified 10/24/23 19:10) Redness of Skin atorvastatin [From Lipitor] Allergy (Unknown, Verified 10/24/23 19:10) Cramping of the Muscles, bodyaches Active Meds: Active Medications Generic Name Dose Route Start Last Admin Trade Name Freq PRN Reason Stop Dose Admin Acetaminophen 1,000 mg 10/25/23 01:17 10/26/23 22:07 Acetaminophen 500 Mg Tablet PO 10/24/24 01:16 1,000 mg Q6HR PRN Administration Pain Scale 1 - 3 or fever Bumetanide 1 mg 10/25/23 22:00 10/27/23 11:25 Bumetanide 1 Mg Tablet PO 10/24/24 21:59 Not Given QHS [facility] Darbepoetin Herbie 25 mcg 10/30/23 09:30 Darbepoetin Herbie In Polysorbat 25 Mcg/Ml Vial IV-PUSH 10/29/24 09:29 WE [facility] Protocol Diltiazem HCl 120 mg 10/27/23 09:00 10/27/23 08:43 Diltiazem Cd.24hr 120 Mg Cap.Er.24h PO 10/26/24 08:59 120 mg DAILY CYNTHIA Administration Sodium Chloride 1,000 mls @ 0 mls/hr 10/25/23 08:21 10/25/23 10:20 0.9% Sodium Chloride 1,000 Ml MISCELLANE 10/24/24 08:20 999 mls/hr .Q0M PRN Administration Dialysis As Directed Doxycycline Hyclate 100 mg in 100 mls @ 100 mls/hr 10/26/23 15:00 10/27/23 03:57 Doxy 100 IV 100 mls/hr Q12H CYNTHIA Administration Lidocaine 1 patch 10/26/23 09:00 10/27/23 08:43 Lidocaine 4% Adh..Patch TOPICAL 10/25/24 08:59 Not Given DAILY CYNTHIA Midodrine 5 mg 10/25/23 08:21 10/25/23 09:01 Midodrine 5 Mg Tablet PO 10/24/24 08:29 5 mg MOWEFR PRN Administration dialysis Midodrine 10 mg 10/26/23 17:00 10/27/23 12:47 Midodrine 5 Mg Tablet PO 10/25/24 16:59 10 mg TID.7A.12P.5P CYNTHIA Administration Pantoprazole Sodium 40 mg 10/25/23 09:00 10/27/23 08:43 Pantoprazole 40 Mg Vial IV-PUSH 10/24/24 08:59 40 mg BID CYNTHIA Administration Paricalcitol 5 mcg 10/25/23 08:30 10/25/23 10:19 Paricalcitol 10 Mcg/2 Ml Vial IV-PUSH 10/24/24 08:29 5 mcg MOWEFR CYNTHIA Administration Prochlorperazine Edisylate 5 mg 10/26/23 12:12 10/26/23 16:49 Prochlorperazine Edisylate 10 Mg/2 Ml Vial IV-PUSH 10/25/24 12:11 5 mg Q4H PRN Administration Nausea And Vomiting Rosuvastatin Calcium 20 mg 10/26/23 09:00 10/27/23 08:43 Rosuvastatin *Nf* 10 Mg Tablet PO 10/25/24 08:59 20 mg DAILY CYNTHIA Administration Sevelamer Carbonate 2,400 mg 10/25/23 17:00 10/27/23 12:47 Sevelamer Carbonate 800 Mg Tablet PO 10/24/24 16:59 2,400 mg TID.WITH.MEALS CYNTHIA Administration Sodium Chloride 0 ml 10/24/23 19:08 10/25/23 10:19 Sodium Chloride 0.9 % 10 Ml Syringe IV-PUSH 10/23/24 19:07 10 ml PRN PRN Administration Flush Sodium Chloride 10 ml 10/24/23 20:30 Sodium Chloride 0.9 % 10 Ml Syringe IV-PUSH 10/23/24 20:29 PRN PRN Flush Sodium Chloride 10 ml 10/25/23 00:38 Sodium Chloride 0.9 % 10 Ml Syringe IV-PUSH 10/24/24 00:37 PRN PRN Flush Sodium Chloride 0 ml 10/25/23 06:00 10/27/23 08:43 Sodium Chloride 0.9 % 10 Ml Syringe IV-PUSH 10/24/24 05:59 10 ml QSHIFT CYNTHIA Administration Sodium Chloride 10 ml 10/25/23 01:22 10/25/23 21:45 Sodium Chloride 0.9 % 10 Ml Vial.Pf INJECTION 10/24/24 01:21 10 ml PRN PRN Administration Dilution Sodium Chloride 10 ml 10/25/23 01:22 Sodium Chloride 0.9 % 10 Ml Syringe IV-PUSH 10/24/24 01:21 PRN PRN Flush Sodium Chloride 0 ml 10/25/23 08:21 Sodium Chloride 0.9 % 10 Ml Syringe IV-PUSH 10/24/24 08:20 PRN PRN Flush Vancomycin HCl 125 mg 10/26/23 15:00 10/27/23 11:12 Vancomycin Liquid 15,000 Mg/300 Ml Soln.Recon PO 11/05/23 09:01 125 mg QID CYNTHIA Administration Vitamin B Complex/Vit C/Folic Acid 1 tab 10/26/23 09:00 10/27/23 08:43 Folic Acid/Vit Bcomp,C 1 Tab Tablet PO 10/25/24 08:59 1 tab DAILY CYNTHIA Administration Warfarin Sodium 1 each 10/26/23 12:29 Warfarin - Pharmacy Dosing MISCELLANE 10/25/24 12:28 ONCE PRN ZZ.Pharmacy Consult Protocol A&P - Hospitalist Assessment/Plan (1) Acute GI bleeding: (2) Supratherapeutic INR: (3) Atrial fibrillation with RVR: (4) Acute hyperkalemia: (5) Diarrhea: (6) GERD (gastroesophageal reflux disease): (7) ESRD (end stage renal disease): (8) Elevated troponin: (9) Hyponatremia: Plan Suspected acute GI bleed- H&H 9.1/27.2, heme stool positive, H&H slight drop, recheck in a.m., INR supratherapeutic, no active bleeding noted Diarrhea-pt reports diarrhea since Saturday morning, no complaints of abdominal pain, nausea or vomiting Evaluated by GI, clinically no overt signs of bleeding, recommended conservativetherapy Continue to maintain PPI daily H/H stable so far, will transfuse as needed Sill with diarrhea about 7 times daily for the past 4 days Stool bacterial workup negative to date Positive for C.diff, started on treatment Daily labs C.diff colitis infection Leukocytosis, remained elevated at 20 Denies abdominal pain, but diarrhea, C. difficile pending, stool studies pending CT AP done on admission, no obvious acute intra-abdominal pathology, showed bilateral consolidations in the lower lobes, concern for pneumonia, DiscontinuedLevaquin given her positive C. difficile and high risk antibiotics for C. difficile. Added IV doxycycline for now for pneumonia coverage Blood cultures so far negative C.diff positive. started on oral vancomycin Daily labs A-fib with RVR, off Cardizem drip Cardiology consult and following, meds adjusted INR today 1.4. GI evaluated and does not suspected acute GI bleed, currently being worked up for diarrhea H/H stable, continue to monitor for any signs of overt GI bleed, will transfuse blood as needed Resumed warfarin dosing per pharmacy Elevated troponin-x 2, but remains flat, denies any chest pain Acute hyperkalemia-with underlying end-stage renal disease, nephrology consultedfor dialysis treatment Chronic hypotension on midodrine therapy at home, resumed DVT PPx?SCDs, warfarin Diet order?heart healthy, ESRD on HD, 1200 mL fluid restriction CODE STATUS?full code Discussed with patient at bedside, questions answered, patient in agreement withabove plan Documented By: Vinh Scott MD 10/27/23 13 23 Signed By: <Electronically signed by Vinh Scott MD> 10/27/23 1327 [facility] Work Phone: [phone] Progress note Author Bereket Xie [facility] October 27, 2023 12:00pm Note Date/Time October 27, 2023 12:01pm [facility] [address] [place] [address] Nephrology Progress Note Signed Patient: Edita Costa MR# : [id number] : 1950 Acct:[id number] Age/Sex: 73 / F Adm Date: 4 Loc: 4 Room: 2Q2253-2 Type: ADM IN Attending Dr: Vinh Scott MD Copies to: ~ Date of Service: 10/27/2023 Subjective Subjective Narrative: Ms. Costa is a 73 year old female with past medical history of atrial fibrillation, hyperlipidemia, GERD, HTN, diabetes, and ESRD on Saturday schedule at [facility]. She presented to the ED after multiple episodes of diarrhea with blood. She reported 7 episodes of diarrhea daily priorto arriving to ED. diarrhea started 3 days ago. This caused her to miss her dialysis treatment Saturday due to feelings of weakness. In the emergency room patient was found to be in a-fib with RVR which was treated with a diltiazem bolus then diltiazem drip. Labs were significant for leukocytosis, subtherapeutic INR, hyponatremia of 126, hyperkalemia of 5.5, and creatinine 8.81. Stool was positive for occult blood. Troponin was elevated 70.2 then repeat troponin 83.7. Due to subtherapeutic INR, patient received Vitamin K. Patient also received calcium, insulin, and dextrose in the ED due to her hyperkalemia. Patient abdomen/pelvis CT showed possible pneumonia at the bases but did not show acute intra-abdominal process. CXR significant for CHF findings. Patient was given Protonix in ED. She was started on vancomycin and cefepime for possible pneumonia. GI was consulted for GI bleed Nephrology services was consulted ESRD management and dialysis treatment. Patient is examined during dialysis treatment. Patient states her diarrhea has improved since admission. She reports again that she missed dialysis treatment on Saturday due to her severe diarrhea and weakness. She typically receives dialysis MWF. She denies nausea, vomiting, abdominal pain, chest pain, and SOB.She is anuric. Patient remains on diltiazem drip. Blood pressure dropped during hemodialysis in today so ultrafiltration was held. Heart rate continues to be around 100-130 Interval history : Patient was seen and examined in her room. C. difficile toxin turned back to be positive. White cell count is up to 20,000. patient started on vancomycin orally 4 times daily. Diarrhea started toimprove. Patient continues to have fair appetite. Patient started on midodrine 10 mg 3 times daily yesterday. Blood pressure improved. Patient remains slightly tachycardic. Remains on diltiazem tablets. Currently off Cardizem drip Last hemodialysis unit was Saturday without ultrafiltration due to low blood pressure Serum sodium level dropped to 129 mmol liter with diarrhea.. Continues to be onroom air with adequate oxygen saturation No chest pain. No cough. No worsening breathing Exam Physical Exam Vital Signs: Temp Pulse Resp BP Pulse Ox O2 Del Method 98.8 F 108 H 16 107/53 L 92 L Room Air 10/27/23 08:00 10/27/23 08:00 10/27/23 08:00 10/27/23 08:00 10/27/23 08:00 10/27/23 08:00 Narrative: General: No acute distress Head :atraumatic normocephalic Eyes: PERRLA. Neck: no JVD no bruit. Heart: S1-S2. Irregularly irregular rhythm slightly tachycardic Respiratory: Clear to auscultation. No wheezing. No crackles Abdomen: Soft, positive bowel sounds,no tenderness. Neurology: Awake alert oriented x3. No focal deficits Extremity. No cyanosis. +1 edema of lower extremity. +2 edema of right upper extremity Skin: No skin rash Objective Intake and Output I&O: Intake & Output 10/24/23 10/25/23 10/26/23 10/27/23 23:59 23:59 23:59 23:59 Intake Total 1950.25 / 1950.25 650 / 650 100 / 100 Output Total 500 / 500 400 / 400 0 / 0 Balance 1450.25 / 1450.25 250 / 250 100 / 100 Weight 182 lb 1.629 oz 184 lb 4.903 oz 185 lb 10.067 oz 182 lb 15.739 oz Meds and Allergies Meds: Active Medications Acetaminophen (Acetaminophen 500 Mg Tablet) 1,000 mg PO Q6HR PRN PRN Reason: Pain Scale 1 - 3 or fever Stop: 10/24/24 01:16 Last Admin: 10/26/23 22:07 Dose: 1,000 mg Bumetanide (Bumetanide 1 Mg Tablet) 1 mg PO QHS CYNTHIA Stop: 10/24/24 21:59 Last Admin: 10/27/23 11:25 Dose: Not Given Darbepoetin Herbie (Darbepoetin Herbie In Polysorbat 25 Mcg/Ml Vial) 25 mcg IV- PUSHWE [facility]; Protocol Stop: 10/29/24 09:29 Diltiazem HCl (Diltiazem Cd.24hr 120 Mg Cap.Er.24h) 120 mg PO DAILY [facility] Stop: 10/26/24 08:59 Last Admin: 10/27/23 08:43 Dose: 120 mg Sodium Chloride (0.9% Sodium Chloride 1,000 Ml) 1,000 mls @ 0 mls/hr MISCELLANE.Q0M PRN PRN Reason: Dialysis Stop: 10/24/24 08:20 Last Admin: 10/25/23 10:20 Dose: 999 mls/hr Doxycycline Hyclate (Doxy 100) 100 mg in 100 mls @ 100 mls/hr IV Q12H [facility] Last Admin: 10/27/23 03:57 Dose: 100 mls/hr Lidocaine (Lidocaine 4% Adh..Patch) 1 patch TOPICAL DAILY CYNTHIA Stop: 10/25/24 08:59 Last Admin: 10/27/23 08:43 Dose: Not Given Midodrine (Midodrine 5 Mg Tablet) 5 mg PO MOWEFR PRN PRN Reason: dialysis Stop: 10/24/24 08:29 Last Admin: 10/25/23 09:01 Dose: 5 mg Midodrine (Midodrine 5 Mg Tablet) 10 mg PO TID.7A.12P.5P [facility] Stop: 10/25/24 16:59 Last Admin: 10/27/23 06:06 Dose: 10 mg Pantoprazole Sodium (Pantoprazole 40 Mg Vial) 40 mg IV-PUSH BID CYNTHIA Stop: 10/24/24 08:59 Last Admin: 10/27/23 08:43 Dose: 40 mg Paricalcitol (Paricalcitol 10 Mcg/2 Ml Vial) 5 mcg IV-PUSH MOWEFR CYNTHIA Stop: 10/24/24 08:29 Last Admin: 10/25/23 10:19 Dose: 5 mcg Prochlorperazine Edisylate (Prochlorperazine Edisylate 10 Mg/2 Ml Vial) 5 mg IV- PUSH Q4H PRN PRN Reason: Nausea And Vomiting Stop: 10/25/24 12:11 Last Admin: 10/26/23 16:49 Dose: 5 mg Rosuvastatin Calcium (Rosuvastatin *Nf* 10 Mg Tablet) 20 mg PO DAILY CYNTHIA Stop: 10/25/24 08:59 Last Admin: 10/27/23 08:43 Dose: 20 mg Sevelamer Carbonate (Sevelamer Carbonate 800 Mg Tablet) 2,400 mg PO TID.WITH.MEALS CYNTHIA Stop: 10/24/24 16:59 Last Admin: 10/27/23 08:43 Dose: 2,400 mg Sodium Chloride (Sodium Chloride 0.9 % 10 Ml Syringe) 0 ml IV-PUSH PRN PRN PRN Reason: Flush Stop: 10/23/24 19:07 Last Admin: 10/25/23 10:19 Dose: 10 ml Sodium Chloride (Sodium Chloride 0.9 % 10 Ml Syringe) 10 ml IV-PUSH PRN PRN PRN Reason: Flush Stop: 10/23/24 20:29 Sodium Chloride (Sodium Chloride 0.9 % 10 Ml Syringe) 10 ml IV-PUSH PRN PRN PRN Reason: Flush Stop: 10/24/24 00:37 Sodium Chloride (Sodium Chloride 0.9 % 10 Ml Syringe) 0 ml IV-PUSH QSHIFT CYNTHIA Stop: 10/24/24 05:59 Last Admin: 10/27/23 08:43 Dose: 10 ml Sodium Chloride (Sodium Chloride 0.9 % 10 Ml Vial.Pf) 10 ml INJECTION PRN PRN PRN Reason: Dilution Stop: 10/24/24 01:21 Last Admin: 10/25/23 21:45 Dose: 10 ml Sodium Chloride (Sodium Chloride 0.9 % 10 Ml Syringe) 10 ml IV-PUSH PRN PRN PRN Reason: Flush Stop: 10/24/24 01:21 Sodium Chloride (Sodium Chloride 0.9 % 10 Ml Syringe) 0 ml IV-PUSH PRN PRN PRN Reason: Flush Stop: 10/24/24 08:20 Vancomycin HCl (Vancomycin Liquid 15,000 Mg/300 Ml Soln.Recon) 125 mg PO QID CYNTHIA Stop: 11/05/23 09:01 Last Admin: 10/27/23 11:12 Dose: 125 mg Vitamin B Complex/Vit C/Folic Acid (Folic Acid/Vit Bcomp,C 1 Tab Tablet) 1 tab PO DAILY CYNTHIA Stop: 10/25/24 08:59 Last Admin: 10/27/23 08:43 Dose: 1 tab Warfarin Sodium (Warfarin - Pharmacy Dosing) 1 each MISCELLANE ONCE PRN; Protocol PRN Reason: ZZ.Pharmacy Consult Stop: 10/25/24 12:28 Allergies Penicillins Allergy (Severe, Verified 10/24/23 19:10) Swelling of Lip/Tongue/Throat, anaphylaxis tuberculin,PPD,multi-puncture Allergy (Intermediate, Verified 10/24/23 19:10) Redness of Skin atorvastatin [From Lipitor] Allergy (Unknown, Verified 10/24/23 19:10) Cramping of the Muscles, bodyaches Results - Nephrology Labs 10/27/23 05:04 10/27/23 05:04 Labs: 10/27/23 05:04 BUN 53 H Creatinine 5.98 H D Albumin 2.2 L Radiology Impressions Impressions - last 24 hours: Any impression(s) listed above is documentation that was entered by the reading physician into a diagnostic report(s) for Edita Costa. I have reviewed the report(s) and am incorporating any findings in the treatment plan of this patient where applicable. A&P - Nephrology Assessment/Plan (1) ESRD (end stage renal disease): Plan: Patient has known ESRD. Patient goes to [facility] unit on Saturday for hemodialysis. Patient missed dialysis treatment on Saturday due to severe diarrhea and weakness. Patient is due for dialysis this morning. (2) Hyponatremia: Plan: This is likely from GI loss related to diarrhea (3) Hyperkalemia: Plan: Likely from missing hemodialysis session. This has corrected with dialysis (4) Acute diarrhea: Assessment/Problem Details: . Plan: Patient is tested positive for C. difficile colitis. Started on vancomycin on October 25 (5) Atrial fibrillation with RVR: Assessment/Problem Details: P Plan: Patient has history of a-fib. Was found to be in RVR on ED arrival. Treated withdiltiazem bolus then drip . Currently off the drip. Heart rate has been acceptable. Patient remains on warfarin (6) Supratherapeutic INR: Plan: Patient presented to the INR which she treated with vitamin K. Patient is back on warfarin Plan * No need for hemodialysis in today. Next session should be Saturday as per the regular schedule * Patient hyperkalemia corrected with medical treatment and dialysis. Continue to monitor potassium level * Hyponatremia corrected with dialysis. Patient asymptomatic from hyponatremia .continue to monitor sodium level * Continue midodrine every 8 hours with additional midodrine with hemodialysis session to help hyperfiltration and achieve EDW. * On PPI for possible GI bleed. Continue to monitor H&H as directed by GI/hospitalist service. Hemoglobin has been stable * Patient oral vancomycin for C. difficile colitis * Continue Aranesp 40 mcg q. Saturday * Check renal function panel in a.m before hemodialysis to adjust order as needed. Documented By: Bereket Xie MD 10/27/23 1156 Signed By: <Electronically signed by Bereket Xie MD> 10/27/23 1200 [facility] Work Phone: 1(657) 533-274208-31-2024 Progress note Author Diogo Badillo [facility] October 26, 2023 2:59pm Note Date/Time October 26, 2023 3: 19pm [facility] [address] [place] [address] Cardiology Progress Note Signed Patient: Edita Costa MR# : [id number] : 1950 Acct:[id number] Age/Sex: 73 / F Adm Date: 4 Loc: Room: [address] [place] [address] Type: ADM IN Attending Dr: Vinh Scott MD Copies to: ~ Date of Service: 10/26/2023 Subjective Interval history: Continues to complain of diarrhea and weakness. She denies any chest pain, palpitations, lightheadedness or syncope. She had dialysis yesterday which she tolerated well. Workup of her diarrhea has come back positive for C. difficile. Exam Physical Exam Vital Signs: Temp Pulse Resp BP Pulse Ox O2 Del Method 98.0 F 112 H 16 115/55 L 93 L Room Air 10/26/23 12:00 10/26/23 12:00 10/26/23 12:00 10/26/23 12:00 10/26/23 12:10/26/23 12:00 Narrative: Physical Exam: General: NAD, A&Ox3, Chronic ill appearing Head, Eyes: NC/AT, EOMI Lungs: Good air entry; No crackles Heart: S1S2 normal, Regular rhythm, Difficult to appreciate murmur Extremities: No edema. Swollen right forearm with bruising due to previous PIV line. Abdomen: Soft, non-tender, non-distended. Neuro: CN grossly intact, No focal deficits. Psych: Normal mood & affect. Objective Labs 10/26/23 05:00 10/26/23 05:00 Labs: Laboratory Results - last 24 hr 10/25/23 10/25/23 10/26/23 13:26 16:55 05:00 Corrected WBC 17.4 H Uncorrected WBC Count 17.4 H RBC 2.88 L Hgb 8.9 L 8.8 L Hct 27.1 L 26.7 L MCV 92.7 MCH 30.4 MCHC 32.8 RDW 16.3 H Plt Count 196 MPV 7.9 Neut % (Auto) 95.4 Lymph % (Auto) 2.2 Burnet % (Auto) 1.6 Eos % (Auto) 0.7 Baso % (Auto) 0.1 Nucleat RBC Rel Count 0.0 Neut # (Auto) 16.6 H Lymph # (Auto) 0.4 L Burnet # (Auto) 0.3 Eos # (Auto) 0.1 Baso # (Auto) 0.0 Platelet Estimate Normal Plt Morphology Comment Normal RBC Morphology N/A Polychromasia Slight Anisocytosis Slight PT 15.0 H INR 1.3 PHA Creatinine Clear 11.09 Sodium 132 L D Potassium 3.8 Chloride 91 L Carbon Dioxide 29.8 Anion Gap 15.0 BUN 35 H D Creatinine 5.07 H D Est GFR (CKD-EPI) 8.586 Glucose 99 POC Glucose 95 POC Glucose Comment Glu2: cleaned meter Calcium 9.2 Stool Cryptosporidium PCR Stl E. histolytica PCR Stool Giardia Lamblia PCR Stool Shigella PCR C. difficile Tox B Gene Stool Campylobacter PCR Stool Salmonella (PCR) Stool Shiga Toxin (PCR) 10/26/23 09:32 Corrected WBC Uncorrected WBC Count RBC Hgb Hct MCV MCH MCHC RDW Plt Count MPV Neut % (Auto) Lymph % (Auto) Burnet % (Auto) Eos % (Auto) Baso % (Auto) Nucleat RBC Rel Count Neut # (Auto) Lymph # (Auto) Burnet # (Auto) Eos # (Auto) Baso # (Auto) Platelet Estimate Plt Morphology Comment RBC Morphology Polychromasia Anisocytosis PT INR PHA Creatinine Clear Sodium Potassium Chloride Carbon Dioxide Anion Gap BUN Creatinine Est GFR (CKD-EPI) Glucose POC Glucose POC Glucose Comment Calcium Stool Cryptosporidium PCR Negative Stl E. histolytica PCR Negative Stool Giardia Lamblia PCR Negative Stool Shigella PCR Negative C. difficile Tox B Gene Positive A* Stool Campylobacter PCR Negative Stool Salmonella (PCR) Negative Stool Shiga Toxin (PCR) Negative A&P - Cardiology (1) Acute diarrhea: Code(s): R19.7 - Diarrhea, unspecified (2) Supratherapeutic INR: Code(s): R79.1 - Abnormal coagulation profile (3) Atrial fibrillation with RVR: Code(s): I48.91 - Unspecified atrial fibrillation (4) Acute hyperkalemia: Code(s): E87.5 - Hyperkalemia (5) Atrial fibrillation, persistent: Code(s): I48.19 - Other persistent atrial fibrillation (6) Peripheral arterial disease: Code(s): I73.9 - Peripheral vascular disease, unspecified Plan # Infectious diarrhea due to C. difficile # Possible pneumonia # A-fib with RVR # Anemia ? could be due to renal failure. GI have evaluated and do not think is due to GI bleed. # ESRD on HD # Electrolyte disturbance including hypokalemia and hyponatremia - Caused by missing dialysis and worsening renal failure. # Peripheral artery disease -I discussed with the primary junior systems analyst Dr. Ortega who saw her yesterday. The goal for her A-fib at this time is rate control. We will achieve this with Cardizem 120mg which she should continue at d/c. -Given her labile INR and anemia with suspected GI bleed, he will plan for outpatient Watchman evaluation. Her warfarin has been resumed and will watch forany bleeding. -Primary team will manage diarrhea and possible pneumonia. This may be driving A-fib. -Continue volume management by HD. -Will see as needed. Please call with any questions. Follow up with Dr. Ortega. Documented By: Diogo Badillo MD 09/27 03/20 1448 Signed By: <Electronically signed by Diogo Badillo MD> 10/26/23 3785 [facility] Work Phone: 1(900) 981-107808-31-2024 Progress note Author Vinh Scott [facility] October 26, 2023 2:44pm Note Date/Time October 26, 2023 12 :28pm [facility] [address] [place] [address] Hospitalist Progress Note Signed with Smitha Patient: Edita Costa MR# : [id number] : 1950 Acct:[id number] Age/Sex: 73 / F Adm Date: 4 Loc: Room: [address] [place] [address] Type: ADM IN Attending Dr: Vinh Scott MD Copies to: ~ ADDENDUM1 C. difficile came back positive, patient was started on oral vancomycin 4 times daily. Stopped Levaquin given at high risk antibiotics for C. difficile. Will start doxycycline for suspected pneumonia as CT showed lung consolidations. Addendum Documented By: Vinh Scott MD 10/26/231443 Addendum Signed By: <Electronically signed by Vinh Scott MD> 10/26/231443 Date of Service: 10/26/2023 Subjective Subjective Narrative: Patient was seen evaluated at bedside, remained in A-fib, heart rate ranging 90sto 110s, off Cardizem drip, had an episode of hypotension overnight and given bolus of IV fluids along with midodrine. Blood pressure today 90s over 60s. Patient saturating around 94% on room air. He does report cough with some sputum production over the past couple days, she still has loose stools at least6-7 times daily over the past 4 days according to her, C. difficile was sent, pending results. CT abdomen pelvis was done on admission and reviewed, no evidence of intra-abdominal infection, it did show bilateral lower lobe consolidations suspicious for pneumonia. Exam Physical Exam Vital Signs: Temp Pulse Resp BP Pulse Ox O2 Del Method 96.9 F L 103 H 16 99/63 L 94 L Room Air 10/26/23 08:00 10/26/23 08:00 10/26/23 08:00 10/26/23 08:00 10/26/23 08:00 10/26/23 08:00 Narrative: Const General: cooperative, ill appearing HEENT Normal oropharyngeal mucosa without any ulcers or exudates Eyes: Conjunctiva normal Pulmonary Auscultation: Diminished breath sounds, bibasilar rhonchi, no wheezes Cardiovascular Rate: Slightly tachycardic Rhythm: irregular rhythm Heart Sounds: S1 normal, S2 normal and no murmurs GI Inspection: non-distended Palpation: soft, not firm and nontender. No rigidity or rebound. Deferred Neuro General: alert, awake and oriented x3. No obvious new focal deficit Musculoskeletal: normal range of motion Extrem General: no cyanosis, no pedal edema Psych Appearance: ill appearing, calm, cooperative Objective Lab Results 10/26/23 05:00 10/26/23 05:00 Microbiology Results Microbiology 10/25/23 00:08 Blood - Right Hand Blood Culture - Preliminary No Growth 1 Day 10/24/23 23:10 Blood - Right Wrist Blood Culture - Preliminary No Growth 1 Day Meds Allergies and Active Meds Allergies Penicillins Allergy (Severe, Verified 10/24/23 19:10) Swelling of Lip/Tongue/Throat, anaphylaxis tuberculin,PPD,multi-puncture Allergy (Intermediate, Verified 10/24/23 19:10) Redness of Skin atorvastatin [From Lipitor] Allergy (Unknown, Verified 10/24/23 19:10) Cramping of the Muscles, bodyaches Active Meds: Active Medications Generic Name Dose Route Start Last Admin Trade Name Freq PRN Reason Stop Dose Admin Acetaminophen 1,000 mg 10/25/23 01:17 Acetaminophen 500 Mg Tablet PO 10/24/24 01:16 Q6HR PRN Pain Scale 1 - 3 or fever Bumetanide 1 mg 10/25/23 22:00 Bumetanide 1 Mg Tablet PO 10/24/24 21:59 [facility] Darbepoetin Herbie 25 mcg 10/30/23 09:30 Darbepoetin Herbie In Polysorbat 25 Mcg/Ml Vial IV-PUSH 10/29/24 09:29 [facility] Protocol Sodium Chloride 1,000 mls @ 0 mls/hr 10/25/23 08:21 10/25/23 10:20 0.9% Sodium Chloride 1,000 Ml MISCELLANE 10/24/24 08:20 999 mls/hr .Q0M PRN Administration Dialysis As Directed Levofloxacin 1 each 10/26/23 12:11 Levofloxacin - Pharmacy Dosing IV ONCE PRN ZZ.Pharmacy Consult Protocol Lidocaine 1 patch 10/26/23 09:00 10/26/23 09:17 Lidocaine 4% Adh..Patch TOPICAL 10/25/24 08:59 Not Given DAILY CYNTHIA Midodrine 5 mg 10/25/23 08:21 10/25/23 09:01 Midodrine 5 Mg Tablet PO 10/24/24 08:29 5 mg MOWEFR PRN Administration dialysis Pantoprazole Sodium 40 mg 10/25/23 09:00 10/26/23 09:18 Pantoprazole 40 Mg Vial IV-PUSH 10/24/24 08:59 40 mg BID CYNTHIA Administration Paricalcitol 5 mcg 10/25/23 08:30 10/25/23 10:19 Paricalcitol 10 Mcg/2 Ml Vial IV-PUSH 10/24/24 08:29 5 mcg MOWEFR CYNTHIA Administration Prochlorperazine Edisylate 5 mg 10/26/23 12:12 Prochlorperazine Edisylate 10 Mg/2 Ml Vial IV-PUSH 10/25/24 12:11 Q4H PRN Nausea And Vomiting Rosuvastatin Calcium 20 mg 10/26/23 09:00 10/26/23 12:01 Rosuvastatin *Nf* 10 Mg Tablet PO 10/25/24 08:59 20 mg DAILY CYNTHIA Administration Sevelamer Carbonate 2,400 mg 10/25/23 17:00 10/26/23 12:02 Sevelamer Carbonate 800 Mg Tablet PO 10/24/24 16:59 Not Given TID.WITH.MEALS CYNTHIA Sodium Chloride 0 ml 10/24/23 19:08 10/25/23 10:19 Sodium Chloride 0.9 % 10 Ml Syringe IV-PUSH 10/23/24 19:07 10 ml PRN PRN Administration Flush Sodium Chloride 10 ml 10/24/23 20:30 Sodium Chloride 0.9 % 10 Ml Syringe IV-PUSH 10/23/24 20:29 PRN PRN Flush Sodium Chloride 10 ml 10/25/23 00:38 Sodium Chloride 0.9 % 10 Ml Syringe IV-PUSH 10/24/24 00:37 PRN PRN Flush Sodium Chloride 0 ml 10/25/23 06:00 10/26/23 05:13 Sodium Chloride 0.9 % 10 Ml Syringe IV-PUSH 10/24/24 05:59 10 ml QSHIFT CYNTHIA Administration Sodium Chloride 10 ml 10/25/23 01:22 10/25/23 21:45 Sodium Chloride 0.9 % 10 Ml Vial.Pf INJECTION 10/24/24 01:21 10 ml PRN PRN Administration Dilution Sodium Chloride 10 ml 10/25/23 01:22 Sodium Chloride 0.9 % 10 Ml Syringe IV-PUSH 10/24/24 01:21 PRN PRN Flush Sodium Chloride 0 ml 10/25/23 08:21 Sodium Chloride 0.9 % 10 Ml Syringe IV-PUSH 10/24/24 08:20 PRN PRN Flush Vitamin B Complex/Vit C/Folic Acid 1 tab 10/26/23 09:00 10/26/23 09:17 Folic Acid/Vit Bcomp,C 1 Tab Tablet PO 10/25/24 08:59 1 tab DAILY CYNTHIA Administration A&P - Hospitalist Assessment/Plan (1) Acute GI bleeding: (2) Supratherapeutic INR: (3) Atrial fibrillation with RVR: (4) Acute hyperkalemia: (5) Diarrhea: (6) GERD (gastroesophageal reflux disease): (7) ESRD (end stage renal disease): (8) Elevated troponin: (9) Hyponatremia: Plan Suspected acute GI bleed- H&H 9.1/27.2, heme stool positive, H&H slight drop, recheck in a.m., INR supratherapeutic, no active bleeding noted Diarrhea-pt reports diarrhea since Saturday morning, no complaints of abdominal pain, nausea or vomiting Evaluated by GI, clinically no overt signs of bleeding, recommended conservativetherapy Continue to maintain PPI daily H/H stable so far, will transfuse as needed Sill with diarrhea about 7 times daily for the past 4 days C.diff and stool studies sent- pending results If c.diff negative, will add Imodium for symptomatic relief. Leukocytosis, slightly better, remains afebrile Denies abdominal pain, but diarrhea, C. difficile pending, stool studies pending CT AP done on admission, no obvious acute intra-abdominal pathology, showed bilateral consolidations in the lower lobes, concern for pneumonia, will start Levaquin given her severe allergy to penicillins Blood cultures so far negative Check sputum culture A-fib with RVR, off Cardizem drip Cardiology consult and following, meds adjusted INR today 1.3. GI evaluated and does not suspected acute GI bleed, currently being worked up for diarrhea H/H stable, continue to monitor for any signs of overt GI bleed, will transfuse blood as needed Resume warfarin dosing per pharmacy Elevated troponin-x 2, but remains flat, denies any chest pain Acute hyperkalemia-with underlying end-stage renal disease, nephrology consultedfor dialysis treatment Chronic hypotension on midodrine therapy at home DVT PPx?SCDs, warfarin Diet order?heart healthy, ESRD on HD, 1200 mL fluid restriction CODE STATUS?full code Discussed with patient at bedside, questions answered, patient in agreement withabove plan Documented By: Vinh Scott MD 10/26/2302 17 Signed By: <Electronically signed by Vinh Scott MD> 10/26/23 1231 [facility] Work Phone: [phone]) 610-875508-31-2024 Progress note Author Bereket Xie [facility] October 26, 2023 2:24pm Note Date/Time October 26, 2023 2: 24pm [facility] [address] [place] [address] Nephrology Progress Note Signed Patient: Edita Costa MR# : [id number] : 1950 Acct:[id number] Age/Sex: 73 / F Adm Date: 4 Loc: Room: [address] [place] [address] Type: ADM IN Attending Dr: Vinh Scott MD Copies to: ~ Date of Service: 10/26/2023 Subjective Subjective Narrative: Ms. Costa is a 73 year old female with past medical history of atrial fibrillation, hyperlipidemia, GERD, HTN, diabetes, and ESRD on Saturday schedule at [facility]. She presented to the ED after multiple episodes of diarrhea with blood. She reported 7 episodes of diarrhea daily priorto arriving to ED. diarrhea started 3 days ago. This caused her to miss her dialysis treatment Saturday due to feelings of weakness. In the emergency room patient was found to be in a-fib with RVR which was treated with a diltiazem bolus then diltiazem drip. Labs were significant for leukocytosis, subtherapeutic INR, hyponatremia of 126, hyperkalemia of 5.5, and creatinine 8.81. Stool was positive for occult blood. Troponin was elevated 70.2 then repeat troponin 83.7. Due to subtherapeutic INR, patient received Vitamin K. Patient also received calcium, insulin, and dextrose in the ED due to her hyperkalemia. Patient abdomen/pelvis CT showed possible pneumonia at the bases but did not show acute intra-abdominal process. CXR significant for CHF findings. Patient was given Protonix in ED. She was started on vancomycin and cefepime for possible pneumonia. GI was consulted for GI bleed Nephrology services was consulted ESRD management and dialysis treatment. Patient is examined during dialysis treatment. Patient states her diarrhea has improved since admission. She reports again that she missed dialysis treatment on Saturday due to her severe diarrhea and weakness. She typically receives dialysis MWF. She denies nausea, vomiting, abdominal pain, chest pain, and SOB.She is anuric. Patient remains on diltiazem drip. Blood pressure dropped during hemodialysis in today so ultrafiltration was held. Heart rate continues to be around 100-130 Interval history : Patient was seen and examined in her room. Patient started to have diarrhea again. Sample for C. difficile was sent earlier today. Results still pending Blood pressure remains borderline low. Heart rate has been fluctuating between 100 and 120. Currently off Cardizem drip Last hemodialysis unit was yesterday without ultrafiltration due to low blood pressure Serum sodium level improved to 132 mmol/L from 126. Continues to be on room airwith adequate oxygen saturation No chest pain. No cough. No worsening breathing Exam Physical Exam Vital Signs: Temp Pulse Resp BP Pulse Ox O2 Del Method 96.9 F L 103 H 16 99/63 L 94 L Room Air 10/26/23 08:00 10/26/23 08:00 10/26/23 08:00 10/26/23 08:00 10/26/23 08:00 10/26/23 08:00 Narrative: General: No acute distress Head :atraumatic normocephalic Eyes: PERRLA. Neck: no JVD no bruit. Heart: S1-S2. Irregularly irregular rhythm slightly tachycardic Respiratory: Clear to auscultation. No wheezing. No crackles Abdomen: Soft, positive bowel sounds,no tenderness. Neurology: Awake alert oriented x3. No focal deficits Extremity. No cyanosis. Trace edema of lower extremity Skin: No skin rash Objective Intake and Output I&O: Intake & Output 10/23/23 10/24/23 10/25/23 10/26/23 23:59 23:59 23:59 23:59 Intake Total 1950.25 / 1950.25 200 / 200 Output Total 500 / 500 Balance 1450.25 / 1450.25 200 / 200 Weight 182 lb 1.629 oz 184 lb 4.903 oz 185 lb 10.067 oz Meds and Allergies Meds: Active Medications Acetaminophen (Acetaminophen 500 Mg Tablet) 1,000 mg PO Q6HR PRN PRN Reason: Pain Scale 1 - 3 or fever Stop: 10/24/24 01:16 Bumetanide (Bumetanide 1 Mg Tablet) 1 mg PO QHS CYNTHIA Stop: 10/24/24 21:59 Darbepoetin Herbie (Darbepoetin Herbie In Polysorbat 25 Mcg/Ml Vial) 25 mcg IV- PUSHWE CYNTHIA; Protocol Stop: 10/29/24 09:29 Sodium Chloride (0.9% Sodium Chloride 1,000 Ml) 1,000 mls @ 0 mls/hr MISCELLANE.Q0M PRN PRN Reason: Dialysis Stop: 10/24/24 08:20 Last Admin: 10/25/23 10:20 Dose: 999 mls/hr Lidocaine (Lidocaine 4% Adh..Patch) 1 patch TOPICAL DAILY CYNTHIA Stop: 10/25/24 08:59 Last Admin: 10/26/23 09:17 Dose: Not Given Midodrine (Midodrine 5 Mg Tablet) 5 mg PO MOWEFR PRN PRN Reason: dialysis Stop: 10/24/24 08:29 Last Admin: 10/25/23 09:01 Dose: 5 mg Pantoprazole Sodium (Pantoprazole 40 Mg Vial) 40 mg IV-PUSH BID CYNTHIA Stop: 10/24/24 08:59 Last Admin: 10/26/23 09:18 Dose: 40 mg Paricalcitol (Paricalcitol 10 Mcg/2 Ml Vial) 5 mcg IV-PUSH MOWEFR CYNTHIA Stop: 10/24/24 08:29 Last Admin: 10/25/23 10:19 Dose: 5 mcg Prochlorperazine Edisylate (Prochlorperazine Edisylate 10 Mg/2 Ml Vial) 5 mg IV- PUSH Q4H PRN PRN Reason: Nausea And Vomiting Stop: 10/25/24 12:11 Rosuvastatin Calcium (Rosuvastatin *Nf* 10 Mg Tablet) 20 mg PO DAILY CYNTHIA Stop: 10/25/24 08:59 Last Admin: 10/26/23 12:01 Dose: 20 mg Sevelamer Carbonate (Sevelamer Carbonate 800 Mg Tablet) 2,400 mg PO TID.WITH.MEALS CYNTHIA Stop: 10/24/24 16:59 Last Admin: 10/26/23 12:02 Dose: Not Given Sodium Chloride (Sodium Chloride 0.9 % 10 Ml Syringe) 0 ml IV-PUSH PRN PRN PRN Reason: Flush Stop: 10/23/24 19:07 Last Admin: 10/25/23 10:19 Dose: 10 ml Sodium Chloride (Sodium Chloride 0.9 % 10 Ml Syringe) 10 ml IV-PUSH PRN PRN PRN Reason: Flush Stop: 10/23/24 20:29 Sodium Chloride (Sodium Chloride 0.9 % 10 Ml Syringe) 10 ml IV-PUSH PRN PRN PRN Reason: Flush Stop: 10/24/24 00:37 Sodium Chloride (Sodium Chloride 0.9 % 10 Ml Syringe) 0 ml IV-PUSH QSHIFT CYNTHIA Stop: 10/24/24 05:59 Last Admin: 10/26/23 05:13 Dose: 10 ml Sodium Chloride (Sodium Chloride 0.9 % 10 Ml Vial.Pf) 10 ml INJECTION PRN PRN PRN Reason: Dilution Stop: 10/24/24 01:21 Last Admin: 10/25/23 21:45 Dose: 10 ml Sodium Chloride (Sodium Chloride 0.9 % 10 Ml Syringe) 10 ml IV-PUSH PRN PRN PRN Reason: Flush Stop: 10/24/24 01:21 Sodium Chloride (Sodium Chloride 0.9 % 10 Ml Syringe) 0 ml IV-PUSH PRN PRN PRN Reason: Flush Stop: 10/24/24 08:20 Vancomycin HCl (Vancomycin Liquid 15,000 Mg/300 Ml Soln.Recon) 125 mg PO QID CYNTHIA Stop: 11/05/23 09:01 Vitamin B Complex/Vit C/Folic Acid (Folic Acid/Vit Bcomp,C 1 Tab Tablet) 1 tab PO DAILY CYNTHIA Stop: 10/25/24 08:59 Last Admin: 10/26/23 09:17 Dose: 1 tab Warfarin Sodium (Warfarin - Pharmacy Dosing) 1 each MISCELLANE ONCE PRN; Protocol PRN Reason: ZZ.Pharmacy Consult Stop: 10/25/24 12:28 Allergies Penicillins Allergy (Severe, Verified 10/24/23 19:10) Swelling of Lip/Tongue/Throat, anaphylaxis tuberculin,PPD,multi-puncture Allergy (Intermediate, Verified 10/24/23 19:10) Redness of Skin atorvastatin [From Lipitor] Allergy (Unknown, Verified 10/24/23 19:10) Cramping of the Muscles, bodyaches Results - Nephrology Labs 10/26/23 05:00 10/26/23 05:00 Labs: 10/26/23 05:00 BUN 35 H D Creatinine 5.07 H D Radiology Impressions Impressions - last 24 hours: Any impression(s) listed above is documentation that was entered by the reading physician into a diagnostic report(s) for Edita Costa. I have reviewed the report(s) and am incorporating any findings in the treatment plan of this patient where applicable. A&P - Nephrology Assessment/Plan (1) ESRD (end stage renal disease): Plan: Patient has known ESRD. Patient goes to [facility] on Saturday for hemodialysis. Patient missed dialysis treatment on Saturday due to severe diarrhea and weakness. Patient is due for dialysis this morning. (2) Hyponatremia: Plan: This is likely from GI loss related to diarrhea (3) Hyperkalemia: Plan: Likely from missing hemodialysis session. This has corrected with dialysis (4) Acute diarrhea: Assessment/Problem Details: . Plan: Patient had several days of severe diarrhea with BM x 7 daily. Also notes blood in her stool. Hemoglobin has been stable since admission. GI consulted. Recommends to proceed with stool infectious workup (5) Atrial fibrillation with RVR: Assessment/Problem Details: P Plan: Patient has history of a-fib. Was found to be in RVR on ED arrival. Treated withdiltiazem bolus then drip . Currently off the drip. Heart rate has been acceptable (6) Supratherapeutic INR: Plan: Patient presented to the INR which she treated with vitamin K. Plan * No need for hemodialysis in today. Next session should be Saturday as per the regular schedule * Patient hyperkalemia was treated in the ED with calcium, insulin, and dextrose. This will also likely improve with hemodialysis. Continue to monitor potassium level * Hyponatremia corrected with dialysis. Patient asymptomatic from hyponatremia continue to monitor sodium level * Continue midodrine with hemodialysis session to help hyperfiltration and achieve EDW. * On PPI for possible GI bleed. Continue to monitor H&H as directed by GI/hospitalist service. Hemoglobin has been stable * Diarrhea workup and management as directed by the primary hospitalist/GI services * Continue Aranesp 40 mcg q. Saturday * Check renal function panel in a.m. Documented By: Bereket Xie MD 10/26/23 1419 Signed By: <Electronically signed by Bereket Xie MD> 10/26/23 1426 [facility] Work Phone: 1(240) 477-479108-30-2024 Consult note Author [place] [facility] October 25, 2023 4:09pm Note Date/Time October 25, 2023 4: 09pm [facility] [address] [place] [address] Cardiology Consult Note Signed Patient: Edita Costa MR# : [id number] : 1950 Acct:[id number] Age/Sex: 73 / F Adm Date: 4 Loc: Room: [address] [place] [address] Type: ADM IN Attending Dr: Coreen Jaffe MD Copies to: MD [place] Yun II, MD, [facility] Coreen Jaffe MD~ Cardiology HPI History of Present Illness Consult Date: 10/25/23 Reason for Consult: Atrial fibrillation with RVR HPI: Ms. Costa is a 73 year old female who is being seen at request of the hospitalist for atrial fibrillation. Patient has followed with Dr. Quintero and in the past was treated for atrial fibrillation with amiodarone and Coumadin andhad cardioversions in the past with success but recently apparently rhythm control strategy was abandoned as she has been treated with rate control and Coumadin. I could not find any records of previous myocardial ischemia evaluation and her last echocardiogram 4 years ago demonstrated normal ejection fraction with no valvular heart disease. She has end-stage kidney disease on dialysis.. She has tendency for anemia and presented with 3-day history of diarrhea with no fever and no hemoptysis or hematemesis. She has mild abdominalcramping, CT of the abdomen demonstrated no significant pathology. Chest x-ray revealed cardiomegaly and blunting of the costophrenic angles bilaterally. Her troponin was slightly elevated around 80 pg/mL. EKG showed no ST and T changes but atrial fibrillation with RVR. Patient has been placed on Cardizem drip. Due to recent acute abdominal illness she missed her dialysis 2 days ago. She was found to have hyponatremia and hyperkalemia with significant anemia hemoglobin 7.9 g/dL. She indicated seeing some blood in her stool as well. Thepatient at the time is very weak and falling asleep easily and apparently has been dehydrated. Nephrology had seen the patient. My course of action at leastfor the time being is just rate control and continue the Coumadin and may require blood transfusion, will obtain echocardiogram to reassess ejection fraction. At 1 point in time she need to be evaluated for ischemic heart disease. She is known to have severe PAD with several vascular interventions byDr. Kendrick. Currently her blood pressure is on the low side likely from dehydration. Review of Systems Review of Systems Review of systems: Patient has only main complaint regarding her diarrhea and abdominal cramps but denies any palpitations, syncope or chest pain. She denies any recent febrile illnesses. The patient cannot elaborate much on much of the questions I asked her because she was very sleepy. [facility] Medical History (Updated 10/25/23 @ 10:27 by Michelle Mora) Hyperlipidemia GERD (gastroesophageal reflux disease) Neuropathy Spinal stenosis GERD (gastroesophageal reflux disease) Peripheral arterial disease History of cardioversion A-fib AVF (arteriovenous fistula) left arm Dialysis patient M-W-F @ [facility] Maximo Benign hypertension with end-stage renal disease Hyperlipidemia Tricuspid regurgitation HTN (hypertension) ESRD (end stage renal disease) Surgical History (Updated 10/25/23 @ 04:08 by Estela Kinney RN) History of tubal ligation History of orthopedic surgery denies any orthopedic surgeries Hx of hysterectomy partial Hx of cholecystectomy History of tonsillectomy and adenoidectomy Family History (Updated 10/25/23 @ 04:08 by Estela Kinney RN) Daughter Drug abuse Sister Thyroid cancer Diabetes Sister Back problem Father Diabetes Myocardial infarction Brother Diabetes Mother Gastric ulcer Son Diabetes Brother Diabetes Legacy FamHx Relation: Brother(s) Hypertension Legacy FamHx Relation: Brother(s) Brother Hypertension Legacy FamHx Relation: Brother(s) Father Diabetes Heart disease Hypertension Mother Gastric ulcer Son Diabetes Sister Cancer Legacy FamHx Problem: Diagnosed with Cancer Social History Smoking Status: Former smoker Tobacco Type: cigarettes Substance Use Type: None Social History Comments: lives and cares for sisters mother in law Meds Medications and Allergies Allergies Penicillins Allergy (Severe, Verified 10/24/23 19:10) Swelling of Lip/Tongue/Throat, anaphylaxis tuberculin,PPD,multi-puncture Allergy (Intermediate, Verified 10/24/23 19:10) Redness of Skin atorvastatin [From Lipitor] Allergy (Unknown, Verified 10/24/23 19:10) Cramping of the Muscles, bodyaches Home Medications bumetanide 1 mg tablet 1 mg PO QHS 11/17/19 [History Confirmed 09/26/23] aspirin 81 mg tablet,delayed release 81 mg PO DAILY 03/22/20 [History Confirmed 09/26/23] pantoprazole 20 mg tablet,delayed release (Protonix) 20 mg PO QAM 03/22/20 [History Confirmed 09/26/23] sevelamer carbonate 800 mg tablet 2,400 mg PO TID 03/22/20 [History Confirmed 09/26/23] rosuvastatin 10 mg tablet 10 mg PO DAILY 06/23/20 [History Confirmed 09/26/23] darbepoetin herbie in polysorbat 40 mcg/0.4 mL in polysorbate injection syringe (Aranesp) 25 mcg subcut QWEEK 01/24/21 [History Confirmed 09/26/23] biotin 5,000 mcg disintegrating tablet 10,000 mcg PO DAILY 01/26/21 [History Confirmed 09/26/23] docusate sodium 100 mg capsule (Colace) 100 mg PO BID PRN Constipation 01/26/21 [History Confirmed 09/26/23] warfarin 2 mg tablet 2 mg PO 6XW 07/06/21 [History Confirmed 09/26/23] acetaminophen 650 mg tablet,extended release 650 mg PO Q12H PRN Pain 03/06/22 [History Confirmed 09/26/23] cinacalcet 30 mg tablet 30 mg PO 3XW 03/06/22 [History Confirmed 09/26/23] diclofenac sodium 2 % topical solution in packet 1 packet topical Q12H 03/06/22 [History Confirmed 09/26/23] midodrine 5 mg tablet 10 mg PO TID 03/06/22 [History Confirmed 09/26/23] paricalcitol 5 mcg/mL intravenous solution (Zemplar) 6 mcg IV QWEEK 03/06/22 [History Confirmed 09/26/23] polyethylene glycol 3350 17 gram oral powder packet (Miralax) 17 g PO DAILY 03/06/22 [History Confirmed 09/26/23] carvedilol 3.125 mg tablet 3.125 mg PO BID 11/08/22 [History Confirmed 09/26/23] lidocaine 5 % topical patch 1 patch topical DAILY 11/08/22 [History Confirmed 09/26/23] vitamin B complex-vitamin C-folic acid 0.8 mg tablet 1 tab PO DAILY 11/08/22 [History Confirmed 09/26/23] warfarin 3 mg tablet 3 mg PO QWEEK 11/08/22 [History Confirmed 09/26/23] Exam Physical Exam Vital Signs: Temp Pulse Resp BP Pulse Ox O2 Del Method 97.6 F 112 H 16 83/60 L 94 L Room Air 10/25/23 14:10 10/25/23 15:39 10/25/23 14:10 10/25/23 15:39 10/25/23 14:10 10/25/23 14:10 Const General: frail appearing Nutritional Appearance: overweight Orientation: other (Patient is very sleepy and hard to arouse) HEENT Head: normal to inspection Nose: external nose normal Face and sinus: normal facial exam Eyes Conjunctivae: conjunctivae normal Pupils: PERRL Neck Neck: trachea midline and supple Neck mass: No Thyroid: thyroid normal Carotids: normal carotid upstroke Resp Effort & Inspection: normal respiratory effort Auscultation: clear to auscultation bilaterally Cardio Rate: tachycardic Rhythm: abnormal rhythm irregularly irregular Heart Sounds: S1 normal and S2 normal GI Palpation: soft and no hepatosplenomegaly Auscultation: normal bowel sounds Extrem Other: Atrophy of lower extremities from poor circulation Results - Cardiology Labs 10/25/23 10:11 10/25/23 10:11 Lab results: Cardiac Enzymes 10/24/23 Range/Units 20:13 AST 35 (13-39) U/L CBC 10/24/23 10/25/23 Range/Units 20:13 10:11 RBC 2.94 L 2.60 L (3.60-5.00) X10E6/uL Hgb 9.1 L 7.9 L (11.8-15.4) g/dL Hct 27.2 L 23.8 L (34.0-46.4) % Plt Count 205 199 (150-450) x10E3/uL Neut # (Auto) 18.9 H 17.9 H (1.8-7.7) x10E3/uL Lymph # (Auto) 0.4 L 0.4 L (1.00-4.8) x10E3/uL Burnet # (Auto) 0.4 0.3 (0.0-0.8) x10E3/uL Eos # (Auto) 0.0 0.0 (0.0-0.45) x10E3/uL Baso # (Auto) 0.2 0.0 (0.0-0.2) x10E3/uL Comprehensive Metabolic Panel 10/24/23 10/25/23 10/25/23 Range/Units 20:13 00:08 10:11 Sodium 126 L 126 L (136-145) mmol/L Potassium 5.5 H 5.6 H 5.2 H (3.5-5.1) mmol/L Chloride 87 L 89 L (98-107) mmol/L Carbon Dioxide 26.3 23.0 (21.0-31.0) mmol/L BUN 63 H 69 H (7-25) mg/dL Creatinine 8.81 H 8.79 H (0.60-1.20) mg/dL Glucose 112 H 102 H (70-100) mg/dL Calcium 9.4 8.7 (8.6-10.3) mg/dL Direct Bilirubin 0.20 H (0.03-0.18) mg/dL Indirect Bilirubin 0.4 mg/dL AST 35 (13-39) U/L ALT 15 (7-52) U/L Alkaline Phosphatase 78 (34-104) U/L Total Protein 6.3 L (6.4-8.9) gm/dL Albumin 3.0 L (3.5-5.7) gm/dL Intake and Output 10/25/23 10/25/23 10/25/23 07:59 15:59 23:59 Intake Total 1450.25 / 1550.25 100 / 1550.25 Output Total 0 / 500 500 / 500 Balance 1450.25 / 1050.25 -400 / 1050.25 Intake: IV 1450.25 / 1550.25 100 / 1550.25 Calcium Gluconate 1 gm/50 ml 1 50 / 50 gm In 50 ml @ 100 mls/hr IV ONCE ONE Rx#:[id number] Cefepime 2Gm-*Ns* 2 gm In 50 ml 50 / 50 @ 100 mls/hr IV ONCE ONE Rx#: [id number] Phytonadione 2.5 mg In Dextrose 50.25 / 50.25 5 % in Water 50 ml @ 100.5 mls /hr IV ONCE ONE Rx#:[id number] Sodium Chloride 0.9% 1,000 ml 1 800 / 800 ,000 ml @ 999 mls/hr IV .Q1H1M ONE Rx#:[id number] Vancomycin 1.5GM-*D5w* ER Only 500 / 500 1.5 gm In 500 ml @ 333.333 mls/ hr IV ONCE ONE Rx#:[id number] dilTIAZem 100 MG -*NaCl* 100 mg 100 / 100 In 100 ml @ 10 MG/HR 10 mls/hr IV .Q10H CYNTHIA Rx#:[id number] Oral 0 / 0 Output: Urine 0 / 0 Dialysis Output 500 / 500 Other: # Bowel Movements 0 Weight 83.6 kg Date of Last Bowel Movement 10/25/23 10/25/23 Patient Weight 10/25/23 23:59 Weight 83.6 kg Lab 10/24/23 10/25/23 10/25/23 20:13 00:08 10:11 PT Cancelled 215.8 H 21.7 H D INR Cancelled 20.3 H* 1.9 APTT Cancelled 72.1 H A&P - Cardiology (1) Atrial fibrillation with RVR: Assessment/Problem Details: Patient has chronic atrial fibrillation managed with rate control and anticoagulation with Coumadin and now with tachycardia due to dehydration and not taking the medications Plan: IV Cardizem for heart rate control and continue anticoagulation with warfarin. Patient has been treated chronically with rate control strategy. With the patient's history of anemia and recurrent GI bleed a watchman's device should beconsidered after the acute phase of her illness subsides Code(s): I48.91 - Unspecified atrial fibrillation (2) Acute GI bleeding: Plan: Workup to be done by gastroenterology Code(s): K92.2 - Gastrointestinal hemorrhage, unspecified (3) Acute diarrhea: Plan: Managed by the hospitalist and contributing to the patient's atrial fibrillationwith RVR. IV hydration gently is recommended Code(s): R19.7 - Diarrhea, unspecified (4) Hyperkalemia: Assessment/Problem Details: Caused by missing dialysis and worsening renal failure Plan: Hemodialysis as directed by nephrology Code(s): E87.5 - Hyperkalemia (5) Acute hyponatremia: Plan: Hemodialysis as directed by nephrology Code(s): E87.1 - Hypo-osmolality and hyponatremia (6) Elevated troponin: Assessment/Problem Details: Patient has evidence of severe PAD and has not had previous evaluation for ischemic heart disease. Plan: Once stable patient will may benefit from Lexiscan MPI, in the interim obtain echocardiogram to reassess ejection fraction for fear of LV systolic dysfunction. Patient has been chronically on statin therapy. Code(s): R79.89 - Other specified abnormal findings of blood chemistry (7) Peripheral arterial disease: Assessment/Problem Details: Patient has previous multiple revascularization by Dr. Kendrick Plan: Aggressive modification of risk factor for vascular disease including antiplatelet therapy if tolerated and statin Code(s): I73.9 - Peripheral vascular disease, unspecified (8) ESRD (end stage renal disease): Plan: Continue hemodialysis directed by nephrology Code(s): N18.6 - End stage renal disease Documented By: Salinas Ortega MD, [facility] 4 1600 Signed By: <Electronically signed by MD SHAISTA Ortega> 10/25/23 0905 [facility] Work Phone: 1(442) 183-543808-30-2024 Progress note Author Coreen Jaffe [facility] October 25, 2023 1:34pm Note Date/Time October 25, 2023 1: 29pm [facility] [address] [place] [address] Hospitalist Progress Note Signed Patient: Edita Costa MR# : [id number] : 1950 Acct:[id number] Age/Sex: 73 / F Adm Date: 4 Loc: 4P Room: [address] [place] [address] Type: ADM IN Attending Dr: Coreen Jaffe MD Copies to: ~ Date of Service: 10/25/2023 Subjective Subjective Narrative: Patient has been seen examined today, she remains in atrial fibrillation at 5 ofCardizem drip, with heart rate in 1 teens 120s Her blood pressure was noted to be at the lower range, but she denies any symptoms, she denies any chest pain shortness of breath any palpitations any dizziness any lightheadedness, she just feels weak, she was seen in dialysis unit while undergoing dialysis Denies any abdominal pain, no diarrhea Physical exam: General -awake, alert, oriented ?3, not in acute distress, on room air, Cardiovascular -S1 with S2, irregular rate Pulmonary -diminished breath sounds bilaterally Gastrointestinal - abdomen is soft, nondistended, nontender, bowel sounds positive, there is no rigidity, no rebound Extremities -no edema Neurological -no focal neurological dysfunction noted Exam Physical Exam Vital Signs: Temp Pulse Resp BP Pulse Ox O2 Del Method 37.2 C 107 H 18 115/40 L 93 L Room Air 10/25/23 09:52 10/25/23 11:30 10/25/23 09:52 10/25/23 11:30 10/25/23 09:52 10/25/23 09:52 Objective Lab Results 10/25/23 10:11 10/25/23 10:11 Microbiology Results Microbiology 10/25/23 00:30 Nasopharyngeal SARS-CoV-2, Influenza & RSV (PCR) - Final 10/24/23 23:28 Stool Stool Occult Blood (OSCAR) - Final Meds Allergies and Active Meds Allergies Penicillins Allergy (Severe, Verified 10/24/23 19:10) Swelling of Lip/Tongue/Throat, anaphylaxis tuberculin,PPD,multi-puncture Allergy (Intermediate, Verified 10/24/23 19:10) Redness of Skin atorvastatin [From Lipitor] Allergy (Unknown, Verified 10/24/23 19:10) Cramping of the Muscles, bodyaches Active Meds: Active Medications Generic Name Dose Route Start Last Admin Trade Name Freq PRN Reason Stop Dose Admin Acetaminophen 1,000 mg 10/25/23 01:17 Acetaminophen 500 Mg Tablet PO 10/24/24 01:16 Q6HR PRN Pain Scale 1 - 3 or fever Darbepoetin Herbie 25 mcg 10/30/23 09:30 Darbepoetin Herbie In Polysorbat 25 Mcg/Ml Vial IV-PUSH 10/29/24 09:29 WE CYNTHIA Protocol Diltiazem HCl 100 mg in 100 mls @ 10 mls/hr 10/24/23 23:00 10/25/23 10:51 Cardizem IV 10/23/24 22:59 5 mg/hr .Q10H CYNTHIA 5 mls/hr Titration Protocol 10 MG/HR Sodium Chloride 1,000 mls @ 0 mls/hr 10/25/23 08:21 10/25/23 10:20 0.9% Sodium Chloride 1,000 Ml MISCELLANE 10/24/24 08:20 999 mls/hr .Q0M PRN Administration Dialysis As Directed Midodrine 5 mg 10/25/23 08:21 10/25/23 09:01 Midodrine 5 Mg Tablet PO 10/24/24 08:29 5 mg MOWEFR PRN Administration dialysis Ondansetron HCl 4 mg 10/25/23 01:22 Ondansetron 4 Mg/2 Ml Vial IV-PUSH 10/24/24 01:21 Q8H PRN Nausea And Vomiting Pantoprazole Sodium 40 mg 10/25/23 09:00 10/25/23 08:32 Pantoprazole 40 Mg Vial IV-PUSH 10/24/24 08:59 40 mg BID CYNTHIA Administration Paricalcitol 5 mcg 10/25/23 08:30 10/25/23 10:19 Paricalcitol 10 Mcg/2 Ml Vial IV-PUSH 10/24/24 08:29 5 mcg MOWEFR CYNTHIA Administration Sodium Chloride 0 ml 10/24/23 19:08 10/25/23 10:19 Sodium Chloride 0.9 % 10 Ml Syringe IV-PUSH 10/23/24 19:07 10 ml PRN PRN Administration Flush Sodium Chloride 10 ml 10/24/23 20:30 Sodium Chloride 0.9 % 10 Ml Syringe IV-PUSH 10/23/24 20:29 PRN PRN Flush Sodium Chloride 10 ml 10/25/23 00:38 Sodium Chloride 0.9 % 10 Ml Syringe IV-PUSH 10/24/24 00:37 PRN PRN Flush Sodium Chloride 0 ml 10/25/23 06:00 10/25/23 06:18 Sodium Chloride 0.9 % 10 Ml Syringe IV-PUSH 10/24/24 05:59 Not Given QSHIFT CYNTHIA Sodium Chloride 10 ml 10/25/23 01:22 Sodium Chloride 0.9 % 10 Ml Vial.Pf INJECTION 10/24/24 01:21 PRN PRN Dilution Sodium Chloride 10 ml 10/25/23 01:22 Sodium Chloride 0.9 % 10 Ml Syringe IV-PUSH 10/24/24 01:21 PRN PRN Flush Sodium Chloride 0 ml 10/25/23 08:21 Sodium Chloride 0.9 % 10 Ml Syringe IV-PUSH 10/24/24 08:20 PRN PRN Flush Warfarin Sodium 1 each 10/25/23 01:33 Warfarin - Pharmacy Dosing MISCELLANE 10/24/24 01:32 ONCE PRN ZZ.Pharmacy Consult Protocol A&P - Hospitalist Assessment/Plan (1) Acute GI bleeding: (2) Supratherapeutic INR: (3) Atrial fibrillation with RVR: (4) Acute hyperkalemia: (5) Diarrhea: (6) GERD (gastroesophageal reflux disease): (7) ESRD (end stage renal disease): (8) Elevated troponin: (9) Hyponatremia: Plan Suspected acute GI bleed- H&H 9.1/27.2, heme stool positive, H&H slight drop, recheck in a.m., INR supratherapeutic, no active bleeding noted Diarrhea-pt reports diarrhea since Saturday morning, no complaints of abdominal pain, nausea or vomiting Evaluated by GI, clinically no overt signs of bleeding, recommended conservativetherapy Leukocytosis, slightly better, remains afebrile Denies abdominal pain, but diarrhea, C. difficile pending Chest x-ray without acute findings to suspect pneumonia, remains on room air Blood cultures so far negative A-fib with RVR, still remains on Cardizem drip Suprartherapeutic INR- 20.3- vitamin K given in ER, today INR 1.9 Recheck INR in a.m., hold Coumadin for now, recheck H&H, if remains stable and no active signs of bleeding, may consider to restart Coumadin Consult cardiology Elevated troponin-x 2, but remains flat, denies any chest pain Acute hyperkalemia-with underlying end-stage renal disease, nephrology consulted, currently patient is undergoing dialysis Chronic hypotension on midodrine therapy at home DVT PPx?SCDs, warfarin Diet order?heart healthy, ESRD on HD, 1200 mL fluid restriction CODE STATUS?full code Documented By: Coreen Jaffe MD 10/25/23 1325 Signed By: <Electronically signed by Coreen Jaffe MD> 10/25/23 1334 [facility] Work Phone: 1([phone] 400-226308-30-2024 Consult note Author Bereket Xie [facility] October 25, 2023 11:35am Note Date/Time October 25, 2023 11 :35am [facility] [address] [place] [address] Nephrology Consult Note Signed Patient: Edita Costa MR# : [id number] : 1950 Acct:[id number] Age/Sex: 73 / F Adm Date: 4 Loc: Room: [address] [place] [address] Type: ADM IN Attending Dr: Coreen Jaffe MD Copies to: MD Curtis Ho II, MD Ruta Semaskiene, MD~ Providers Consult Date: 10/25/23 Requesting Provider: Coreen Jaffe MD Primary Care Provider: Curtis Byrd II, MD HPI Reason for Consult: Dialysis Treatment History of Present Illness: Ms. Costa is a 73 year old female with past medical history of atrial fibrillation, hyperlipidemia, GERD, HTN, diabetes, and ESRD on Saturday schedule at [facility]. She presented to the ED after multiple episodes of diarrhea with blood. She reported 7 episodes of diarrhea daily priorto arriving to ED. diarrhea started 3 days ago. This caused her to miss her dialysis treatment Saturday due to feelings of weakness. In the emergency room patient was found to be in a-fib with RVR which was treated with a diltiazem bolus then diltiazem drip. Labs were significant for leukocytosis, subtherapeutic INR, hyponatremia of 126, hyperkalemia of 5.5, and creatinine 8.81. Stool was positive for occult blood. Troponin was elevated 70.2 then repeat troponin 83.7. Due to subtherapeutic INR, patient received Vitamin K. Patient also received calcium, insulin, and dextrose in the ED due to her hyperkalemia. Patient abdomen/pelvis CT showed possible pneumonia at the bases but did not show acute intra-abdominal process. CXR significant for CHF findings. Patient was given Protonix in ED. She was started on vancomycin and cefepime for possible pneumonia. GI was consulted for GI bleed Nephrology services was consulted ESRD management and dialysis treatment. Patient is examined during dialysis treatment. Patient states her diarrhea has improved since admission. She reports again that she missed dialysis treatment on Saturday due to her severe diarrhea and weakness. She typically receives dialysis MWF. She denies nausea, vomiting, abdominal pain, chest pain, and SOB.She is anuric. Patient remains on diltiazem drip. Blood pressure dropped during hemodialysis in today so ultrafiltration was held. Heart rate continues to be around 100-1 30 Review of Systems Review of Systems All other systems reviewed & are negative unless noted below or in HPI [facility] Medical History (Updated 10/25/23 @ 10:27 by Michelle Mora) Hyperlipidemia GERD (gastroesophageal reflux disease) Neuropathy Spinal stenosis GERD (gastroesophageal reflux disease) Peripheral arterial disease History of cardioversion A-fib AVF (arteriovenous fistula) left arm Dialysis patient M-W-F @ [facility] [place] [facility] Benign hypertension with end-stage renal disease Hyperlipidemia Tricuspid regurgitation HTN (hypertension) ESRD (end stage renal disease) Surgical History (Updated 10/25/23 @ 04:08 by Estela Kinney RN) History of tubal ligation History of orthopedic surgery denies any orthopedic surgeries Hx of hysterectomy partial Hx of cholecystectomy History of tonsillectomy and adenoidectomy Family History (Updated 10/25/23 @ 04:08 by Estela Kinney RN) Daughter Drug abuse Sister Thyroid cancer Diabetes Sister Back problem Father Diabetes Myocardial infarction Brother Diabetes Mother Gastric ulcer Son Diabetes Brother Diabetes Legacy FamHx Relation: Brother(s) Hypertension Legacy FamHx Relation: Brother(s) Brother Hypertension Legacy FamHx Relation: Brother(s) Father Diabetes Heart disease Hypertension Mother Gastric ulcer Son Diabetes Sister Cancer Legacy FamHx Problem: Diagnosed with Cancer Social History Smoking Status: Former smoker Tobacco Type: cigarettes Substance Use Type: None Social History Comments: lives and cares for sisters mother in law Meds Medications & Allergies Allergies Penicillins Allergy (Severe, Verified 10/24/23 19:10) Swelling of Lip/Tongue/Throat, anaphylaxis tuberculin,PPD,multi-puncture Allergy (Intermediate, Verified 10/24/23 19:10) Redness of Skin atorvastatin [From Lipitor] Allergy (Unknown, Verified 10/24/23 19:10) Cramping of the Muscles, bodyaches Home Medications bumetanide 1 mg tablet 1 mg PO QHS 11/17/19 [History Confirmed 09/26/23] aspirin 81 mg tablet,delayed release 81 mg PO DAILY 03/22/20 [History Confirmed 09/26/23] pantoprazole 20 mg tablet,delayed release (Protonix) 20 mg PO QAM 03/22/20 [History Confirmed 09/26/23] sevelamer carbonate 800 mg tablet 2,400 mg PO TID 03/22/20 [History Confirmed 09/26/23] rosuvastatin 10 mg tablet 10 mg PO DAILY 06/23/20 [History Confirmed 09/26/23] darbepoetin herbie in polysorbat 40 mcg/0.4 mL in polysorbate injection syringe (Aranesp) 25 mcg subcut QWEEK 01/24/21 [History Confirmed 09/26/23] biotin 5,000 mcg disintegrating tablet 10,000 mcg PO DAILY 01/26/21 [History Confirmed 09/26/23] docusate sodium 100 mg capsule (Colace) 100 mg PO BID PRN Constipation 01/26/21 [History Confirmed 09/26/23] warfarin 2 mg tablet 2 mg PO 6XW 07/06/21 [History Confirmed 09/26/23] acetaminophen 650 mg tablet,extended release 650 mg PO Q12H PRN Pain 03/06/22 [History Confirmed 09/26/23] cinacalcet 30 mg tablet 30 mg PO 3XW 03/06/22 [History Confirmed 09/26/23] diclofenac sodium 2 % topical solution in packet 1 packet topical Q12H 03/06/22 [History Confirmed 09/26/23] midodrine 5 mg tablet 10 mg PO TID 03/06/22 [History Confirmed 09/26/23] paricalcitol 5 mcg/mL intravenous solution (Zemplar) 6 mcg IV QWEEK 03/06/22 [History Confirmed 09/26/23] polyethylene glycol 3350 17 gram oral powder packet (Miralax) 17 g PO DAILY 03/06/22 [History Confirmed 09/26/23] carvedilol 3.125 mg tablet 3.125 mg PO BID 11/08/22 [History Confirmed 09/26/23] lidocaine 5 % topical patch 1 patch topical DAILY 11/08/22 [History Confirmed 09/26/23] vitamin B complex-vitamin C-folic acid 0.8 mg tablet 1 tab PO DAILY 11/08/22 [History Confirmed 09/26/23] warfarin 3 mg tablet 3 mg PO QWEEK 11/08/22 [History Confirmed 09/26/23] Active Medications: Active Medications Acetaminophen (Acetaminophen 500 Mg Tablet) 1,000 mg PO Q6HR PRN PRN Reason: Pain Scale 1 - 3 or fever Stop: 10/24/24 01:16 Darbepoetin Herbie (Darbepoetin Herbie In Polysorbat 25 Mcg/Ml Vial) 25 mcg IV- PUSHWE CYNTHIA; Protocol Stop: 10/29/24 08:20 Diltiazem HCl (Cardizem) 100 mg in 100 mls @ 10 mls/hr IV .Q10H CYNTHIA; Protocol Stop: 10/23/24 22:59 Last Titration: 10/25/23 05:16 Dose: 10 mg/hr, 10 mls/hr Sodium Chloride (0.9% Sodium Chloride 1,000 Ml) 1,000 mls @ 0 mls/hr MISCELLANE.Q0M PRN PRN Reason: Dialysis Stop: 10/24/24 08:20 Midodrine (Midodrine 5 Mg Tablet) 5 mg PO MOWEFR PRN PRN Reason: dialysis Stop: 10/24/24 08:29 Ondansetron HCl (Ondansetron 4 Mg/2 Ml Vial) 4 mg IV-PUSH Q8H PRN PRN Reason: Nausea And Vomiting Stop: 10/24/24 01:21 Pantoprazole Sodium (Pantoprazole 40 Mg Vial) 40 mg IV-PUSH BID CYNTHIA Stop: 10/24/24 08:59 Paricalcitol (Paricalcitol 10 Mcg/2 Ml Vial) 5 mcg IV-PUSH MOWEFR CYNTHIA Stop: 10/24/24 08:29 Sodium Chloride (Sodium Chloride 0.9 % 10 Ml Syringe) 0 ml IV-PUSH PRN PRN PRN Reason: Flush Stop: 10/23/24 19:07 Sodium Chloride (Sodium Chloride 0.9 % 10 Ml Syringe) 10 ml IV-PUSH PRN PRN PRN Reason: Flush Stop: 10/23/24 20:29 Sodium Chloride (Sodium Chloride 0.9 % 10 Ml Syringe) 10 ml IV-PUSH PRN PRN PRN Reason: Flush Stop: 10/24/24 00:37 Sodium Chloride (Sodium Chloride 0.9 % 10 Ml Syringe) 0 ml IV-PUSH QSHIFT CYNTHIA Stop: 10/24/24 05:59 Last Admin: 10/25/23 06:18 Dose: Not Given Sodium Chloride (Sodium Chloride 0.9 % 10 Ml Vial.Pf) 10 ml INJECTION PRN PRN PRN Reason: Dilution Stop: 10/24/24 01:21 Sodium Chloride (Sodium Chloride 0.9 % 10 Ml Syringe) 10 ml IV-PUSH PRN PRN PRN Reason: Flush Stop: 10/24/24 01:21 Sodium Chloride (Sodium Chloride 0.9 % 10 Ml Syringe) 0 ml IV-PUSH PRN PRN PRN Reason: Flush Stop: 10/24/24 08:20 Warfarin Sodium (Warfarin - Pharmacy Dosing) 1 each MISCELLANE ONCE PRN; Protocol PRN Reason: ZZ.Pharmacy Consult Stop: 10/24/24 01:32 Exam Physical Exam Vital Signs: Temp Pulse Resp BP Pulse Ox O2 Del Method 98.8 F 96 20 112/72 95 Room Air 10/25/23 03:55 10/25/23 05:16 10/25/23 03:55 10/25/23 05:16 10/25/23 02:59 10/25/23 04:23 Narrative: General: No acute distress. Head :atraumatic normocephalic Eyes: PERRLA. Neck: no JVD no bruit. Heart: S1-S2. regular rate, irregular rhythm Respiratory: Lungs clear to auscultation BL. No wheezing. No crackles Abdomen: Soft, no tenderness. Neurology: oriented x3. No focal deficits Extremity. Left fistula, Right arm edematous. No cyanosis. No lower extremity edema Skin: No skin rash. Dry skin LE B/L Results - Nephrology Labs 10/25/23 10:11 08/30/24 10:11 Labs: 10/24/23 20:13 BUN 63 H Creatinine 8.81 H Albumin 3.0 L Radiology Impressions Impressions - last 24 hours: Impressions Abdomen/Pelvis CT 10/24/23 20:30 IMPRESSION: 1. No acute intra-abdominal process is seen. 2. Bilateral lower lobe consolidations with small left and trace right pleural effusions. Pneumonia cannot be excluded. 3. Cardiomegaly. 4. Left colon diverticulosis. Impression dictated by: Moises Camargo Jr., D.O.10/25/2023 8:20 AM Dictation Location: [place] [address] Chest X-Ray 10/24/23 21:29 IMPRESSION: CHF FINDINGS, NEW SINCE 2021 WITH SMALL LEFT PLEURAL EFFUSION. Impression dictated by: Moises Camargo Jr., D.O.10/25/2023 8:16 AM Dictation Location: [place] [address] Any impression(s) listed above is documentation that was entered by the reading physician into a diagnostic report(s) for Edita Costa. I have reviewed the report(s) and am incorporating any findings in the treatment plan of this patient where applicable. A&P - Nephrology Assessment/Plan (1) ESRD (end stage renal disease): Assessment/Problem Details: Patient has known ESRD. Patient goes to [facility] on Saturday for hemodialysis. Patient missed dialysis treatment on Saturday due to severe diarrhea and weakness. Patient is due for dialysis this morning. (2) Hyponatremia: Assessment/Problem Details: Patient hyponatremic on ED arrival with value 126. Patient is chronically hyponatremic with values 129-133. This is likely due to her severe diarrhea. (3) Hyperkalemia: Assessment/Problem Details: Patient hyperkalemic on ED arrival with value 5.5. Repeat potassium 5.6. Patientreceived calcium, insulin, and dextrose. This morning labs are pending. This likely due to missed dialysis treatment on Saturday. (4) Acute diarrhea: Assessment/Problem Details: Patient had several days of severe diarrhea with BM x 7 daily. Also notes blood in her stool. Hemoglobin 9.1 on admission. GI consulted. Recommends to proceed with stool infectious workup. (5) Atrial fibrillation with RVR: Assessment/Problem Details: Patient has history of a-fib. Was found to be in RVR on ED arrival. Treated withdiltiazem bolus then drip . Heart rate continues to fluctuate (6) Supratherapeutic INR: Assessment/Problem Details: Patient on coumadin therapy for her history of afib. INR on ED arrival 20.3. Patient was treated with Vitamin K. Repeat labs pending. Plan * Hemodialysis session today with a blood flow rate 400, dialysate rate 600, ultrafiltration none for now due to low blood pressure and tachycardia while on dialysis. * Patient hyperkalemia was treated in the ED with calcium, insulin, and dextrose. This will also likely improve with hemodialysis. Check potassium level in a.m. * Patient hyponatremia likely secondary to diarrhea. Patient asymptomatic from hyponatremia continue to monitor sodium level * Continue midodrine with hemodialysis session to help hyperfiltration. * On PPI for possible GI bleed. Continue to monitor H&H as directed by GI/hospitalist service * Continue Aranesp 40 mcg q. Saturday * Will repeat BMP and kidney labs in AM. Documented By: Bereket Xie MD 10/25/23825 Signed By: <Electronically signed by Bereket Xie MD> 10/25/23 1135 [facility] Work Phone: 1(112) 454-718908-30-2024 Consult note Author Migel Ny [facility] October 25, 2023 9:27am Note Date/Time October 25, 2023 9: 16am [facility] [address] [place] [address] Gastroenterology Consult Note Signed Patient: Edita Costa MR# : [id number] : 1950 Acct:[id number] Age/Sex: 73 / F Adm Date: 4 Loc: Room: [address] [place] [address] Type: ADM IN Attending Dr: Coreen Jaffe MD Copies to: MD Migel Yun II, MD Ruta Semaskiene, MD~ HPI Data of Consult Date of Consultation: 10/25/23 Requesting Physician: Coreen Jaffe MD Consult Narrative History of present illness: Ms. Costa is a 73 year old female with ESRD on HD, A-fib on warfarin, PAD, HTN, HLD who presents with acute diarrhea who bottle gauger consulted for GI bleeding. Patient has been having 8-10 watery bowel movements a day for the last 3 days. Out of~30 bowel movements, 2 of them had two spots of blood. Otherwise patient denies melena or abdominal pain or any other GI complaints cc:: CC: Coreen Jaffe MD Review of Systems Review of Systems All other systems reviewed & are negative unless noted below or in HPI [facility] Medical History (Updated 10/25/23 @ 09:27 by Migel Ny MD) Hyperlipidemia GERD (gastroesophageal reflux disease) Neuropathy Spinal stenosis GERD (gastroesophageal reflux disease) Peripheral arterial disease History of cardioversion A-fib AVF (arteriovenous fistula) left arm Dialysis patient M-W-F @ [facility] [place] [facility] Benign hypertension with end-stage renal disease Hyperlipidemia Tricuspid regurgitation HTN (hypertension) ESRD (end stage renal disease) Surgical History (Updated 10/25/23 @ 04:08 by Estela Kinney RN) History of tubal ligation History of orthopedic surgery denies any orthopedic surgeries Hx of hysterectomy partial Hx of cholecystectomy History of tonsillectomy and adenoidectomy Family History (Updated 10/25/23 @ 04:08 by Estela Kinney RN) Daughter Drug abuse Sister Thyroid cancer Diabetes Sister Back problem Father Diabetes Myocardial infarction Brother Diabetes Mother Gastric ulcer Son Diabetes Brother Diabetes Legacy FamHx Relation: Brother(s) Hypertension Legacy FamHx Relation: Brother(s) Brother Hypertension Legacy FamHx Relation: Brother(s) Father Diabetes Heart disease Hypertension Mother Gastric ulcer Son Diabetes Sister Cancer Legacy FamHx Problem: Diagnosed with Cancer Social History Smoking Status: Former smoker Tobacco Type: cigarettes Substance Use Type: None Social History Comments: lives and cares for sisters mother in law Meds Medications and Allergies Allergies Penicillins Allergy (Severe, Verified 10/24/23 19:10) Swelling of Lip/Tongue/Throat, anaphylaxis tuberculin,PPD,multi-puncture Allergy (Intermediate, Verified 10/24/23 19:10) Redness of Skin atorvastatin [From Lipitor] Allergy (Unknown, Verified 10/24/23 19:10) Cramping of the Muscles, bodyaches Home Medications bumetanide 1 mg tablet 1 mg PO QHS 11/17/19 [History Confirmed 09/26/23] aspirin 81 mg tablet,delayed release 81 mg PO DAILY 03/22/20 [History Confirmed 09/26/23] pantoprazole 20 mg tablet,delayed release (Protonix) 20 mg PO QAM 03/22/20 [History Confirmed 09/26/23] sevelamer carbonate 800 mg tablet 2,400 mg PO TID 03/22/20 [History Confirmed 09/26/23] rosuvastatin 10 mg tablet 10 mg PO DAILY 06/23/20 [History Confirmed 09/26/23] darbepoetin herbie in polysorbat 40 mcg/0.4 mL in polysorbate injection syringe (Aranesp) 25 mcg subcut QWEEK 01/24/21 [History Confirmed 09/26/23] biotin 5,000 mcg disintegrating tablet 10,000 mcg PO DAILY 01/26/21 [History Confirmed 09/26/23] docusate sodium 100 mg capsule (Colace) 100 mg PO BID PRN Constipation 01/26/21 [History Confirmed 09/26/23] warfarin 2 mg tablet 2 mg PO 6XW 07/06/21 [History Confirmed 09/26/23] acetaminophen 650 mg tablet,extended release 650 mg PO Q12H PRN Pain 03/06/22 [History Confirmed 09/26/23] cinacalcet 30 mg tablet 30 mg PO 3XW 03/06/22 [History Confirmed 09/26/23] diclofenac sodium 2 % topical solution in packet 1 packet topical Q12H 03/06/22 [History Confirmed 09/26/23] midodrine 5 mg tablet 10 mg PO TID 03/06/22 [History Confirmed 09/26/23] paricalcitol 5 mcg/mL intravenous solution (Zemplar) 6 mcg IV QWEEK 03/06/22 [History Confirmed 09/26/23] polyethylene glycol 3350 17 gram oral powder packet (Miralax) 17 g PO DAILY 03/06/22 [History Confirmed 09/26/23] carvedilol 3.125 mg tablet 3.125 mg PO BID 11/08/22 [History Confirmed 09/26/23] lidocaine 5 % topical patch 1 patch topical DAILY 11/08/22 [History Confirmed 09/26/23] vitamin B complex-vitamin C-folic acid 0.8 mg tablet 1 tab PO DAILY 09/14/23 [History Confirmed 09/26/23] warfarin 3 mg tablet 3 mg PO QWEEK 11/08/22 [History Confirmed 09/26/23] Exam Physical Exam Vital Signs: Temp Pulse Resp BP Pulse Ox O2 Del Method 98.8 F 74 20 80/41 L 95 Room Air 10/25/23 03:55 10/25/23 08:32 10/25/23 03:55 10/25/23 08:32 10/25/23 02:59 10/25/23 04:23 Narrative: General appearance: NAD Skin: No jaundice Head: NC/AT Eyes: Anicteric Neck: Supple Lungs: Normal respiratory effort, no use of accessory muscles Abdomen: Nondistended Neuro: Ox3. Results - Gastroenterology Labs Labs: Laboratory Results - last 24 hr 10/24/23 10/25/23 10/25/23 20:13 00:08 00:30 Corrected WBC 19.9 H Uncorrected WBC Count 19.9 H RBC 2.94 L Hgb 9.1 L Hct 27.2 L MCV 92.5 MCH 31.0 MCHC 33.5 RDW 16.2 H Plt Count 205 MPV 8.0 Neut % (Auto) 95.0 Lymph % (Auto) 2.0 Burnet % (Auto) 2.2 Eos % (Auto) 0.0 Baso % (Auto) 0.8 Nucleat RBC Rel Count 0.0 Neut # (Auto) 18.9 H Lymph # (Auto) 0.4 L Burnet # (Auto) 0.4 Eos # (Auto) 0.0 Baso # (Auto) 0.2 Monocyte Dist Width 22.93 H Platelet Estimate Normal Plt Morphology Comment Normal RBC Morphology N/A Polychromasia Slight Poikilocytosis Marked Anisocytosis Slight Crenated Cell Moderate PT Cancelled 215.8 H INR Cancelled 20.3 H* APTT Cancelled 72.1 H PHA Creatinine Clear 6.34 Sodium 126 L Potassium 5.5 H 5.6 H Chloride 87 L Carbon Dioxide 26.3 Anion Gap 18.2 H BUN 63 H Creatinine 8.81 H Est GFR (CKD-EPI) 4.424 Glucose 112 H Lactic Acid 1.8 Calcium 9.4 Total Bilirubin 0.6 Direct Bilirubin 0.20 H Indirect Bilirubin 0.4 AST 35 ALT 15 Alkaline Phosphatase 78 Troponin I High Sens 70.2 H* 83.7 H* Total Protein 6.3 L Albumin 3.0 L Globulin 3.3 Albumin/Globulin Ratio 0.9 Lipase 7.0 L SARS-CoV-2 Rap RNA(RT-PCR) Negative A&P - Gastroenterology Assessment/Plan (1) Acute diarrhea: Plan Ms. Costa is a 73 year old female with ESRD on HD, A-fib on warfarin, PAD, HTN, HLD who presents with acute diarrhea who bottle gauger consulted for GI bleeding. Patient has been having 8-10 watery bowel movements a day for the last 3 days. Out of~30 bowel movements, 2 of them had two spots of blood. Hb: 9.1 which is at baseline, MCV is normal No clinically significant overt bleeding -Patient has normocytic anemia at baseline. The primary problem for the patientis acute diarrhea. patient does not have acute GI bleeding. -Please workup acute diarrhea with stool infectious workup including stool culture, ova parasite and C. difficile. Then treat accordingly Documented By: Migel Ny MD 10/25/23 0914 Signed By: <Electronically signed by Migel Ny MD> 10/25/23 0927 [facility] Work Phone: 1([phone]) 671-878608-30-2024 History and physical note Author Chan Byers [facility] October 25, 2023 5:08am Note Date/Time October 25, 2023 1: 34am [facility] [address] [place] [address] Hospitalist H&P Signed Patient: Edita Costa MR# : [id number] : 1950 Acct:[id number] Age/Sex: 73 / F Adm Date: 4 Loc: Room: [address] [place] [address] Type: ADM IN Attending Dr: Chan Byers DO Copies to: MD Lindsey Yun II, APRN Shawn J Warner, ~ HPI DATE OF EXAMINATION: 10/25/23 CHIEF COMPLAINT: diarrhea and weakness HISTORY OF PRESENT ILLNESS: Ms. Costa is a 73-year-old female with a PMH of ESRD on HD, A-fib on warfarin, PAD, HTN, HLD the presents to the emergency room tonight for severe diarrhea and weakness. Patient states her diarrhea started on Saturday morning, has had about 7 episodes daily since then. She describes the stool as really soft and loose, mostly brown with a little bit of blood in it. She states she was so weak she could not go to dialysis on Saturday, her last dialysis sessionwas on Saturday. Dr. Hoang is her correctional counselor/case manager. She states that she did not drink a lot of fluids she is on a 30 ounce fluid restriction daily. She is anuric. She denies abdominal pain, fever chills, nausea or vomiting, chest painor shortness of breath. She does have some what appears to be dried blood around her lips, patient states that this is probably from her tongue because some of her teeth are sharp. CT of the abdomen pelvis showed a small right and left pleural effusion, compressive atelectasis and or pneumonia at the bases, mild to moderate left colon and sigmoid colon diverticulosis, with several stents renal vascular calcification, mild nonspecific stranding around the right kidney, dense calcified plaque throughout the aortic branch segments in the abdomen and pelvis, no free air or fluid, no abscess or hematoma. EKG is A-fib with RVR. CBC with a white blood cell count of 19.9, H&H 9.1/27.2. Coags are pending CMP with a sodium of 126, potassium 5.5, chloride 87, 18.2 BUN 63, creatinine 8.81. Troponins were drawn it was 70.2 and 83.7. Potassium was repeated 5.6. Lactic acid normal at 1.8 nasal swab ending. Blood cultures are pending. Stool for occult blood was positive. Patient was medicated with Protonix, diltiazem bolusand drip was started, vancomycin, cefepime, calcium gluconate, insulin and dextrose. She will be admitted as inpatient to the progressive floor. Review of Systems Review of Systems Review of systems: A 10 point review of systems was obtained, negative unless noted in the HPI or below. [facility] Medical History (Updated 10/25/23 @ 04:08 by Estela Kinney RN) Hyperlipidemia GERD (gastroesophageal reflux disease) Neuropathy Spinal stenosis GERD (gastroesophageal reflux disease) Peripheral arterial disease History of cardioversion A-fib AVF (arteriovenous fistula) left arm Dialysis patient M-W-F @ [facility] [place] Maximo Benign hypertension with end-stage renal disease Hyperlipidemia Tricuspid regurgitation HTN (hypertension) ESRD (end stage renal disease) Surgical History (Updated 10/25/23 @ 04:08 by Estela Kinney RN) History of tubal ligation History of orthopedic surgery denies any orthopedic surgeries Hx of hysterectomy partial Hx of cholecystectomy History of tonsillectomy and adenoidectomy Family History (Updated 10/25/23 @ 04:08 by Estela Kinney, SALLY) Daughter Drug abuse Sister Thyroid cancer Diabetes Sister Back problem Father Diabetes Myocardial infarction Brother Diabetes Mother Gastric ulcer Son Diabetes Brother Diabetes Legacy FamHx Relation: Brother(s) Hypertension Legacy FamHx Relation: Brother(s) Brother Hypertension Legacy FamHx Relation: Brother(s) Father Diabetes Heart disease Hypertension Mother Gastric ulcer Son Diabetes Sister Cancer Legacy FamHx Problem: Diagnosed with Cancer Social History Smoking Status: Former smoker Tobacco Type: cigarettes Substance Use Type: None Social History Comments: lives and cares for sisters mother in law Meds Medications and Allergies Allergies Penicillins Allergy (Severe, Verified 10/24/23 19:10) Swelling of Lip/Tongue/Throat, anaphylaxis tuberculin,PPD,multi-puncture Allergy (Intermediate, Verified 10/24/23 19:10) Redness of Skin atorvastatin [From Lipitor] Allergy (Unknown, Verified 10/24/23 19:10) Cramping of the Muscles, bodyaches Home Medications bumetanide 1 mg tablet 1 mg PO QHS 11/17/19 [History Confirmed 09/26/23] aspirin 81 mg tablet,delayed release 81 mg PO DAILY 03/22/20 [History Confirmed 09/26/23] pantoprazole 20 mg tablet,delayed release (Protonix) 20 mg PO QAM 03/22/20 [History Confirmed 09/26/23] sevelamer carbonate 800 mg tablet 2,400 mg PO TID 03/22/20 [History Confirmed 09/26/23] rosuvastatin 10 mg tablet 10 mg PO DAILY 06/23/20 [History Confirmed 09/26/23] darbepoetin herbie in polysorbat 40 mcg/0.4 mL in polysorbate injection syringe (Aranesp) 25 mcg subcut QWEEK 01/24/21 [History Confirmed 09/26/23] biotin 5,000 mcg disintegrating tablet 10,000 mcg PO DAILY 01/26/21 [History Confirmed 09/26/23] docusate sodium 100 mg capsule (Colace) 100 mg PO BID PRN Constipation 01/26/21 [History Confirmed 09/26/23] warfarin 2 mg tablet 2 mg PO 6XW 07/06/21 [History Confirmed 09/26/23] acetaminophen 650 mg tablet,extended release 650 mg PO Q12H PRN Pain 03/06/22 [History Confirmed 09/26/23] cinacalcet 30 mg tablet 30 mg PO 3XW 03/06/22 [History Confirmed 09/26/23] diclofenac sodium 2 % topical solution in packet 1 packet topical Q12H 03/06/22 [History Confirmed 09/26/23] midodrine 5 mg tablet 10 mg PO TID 03/06/22 [History Confirmed 09/26/23] paricalcitol 5 mcg/mL intravenous solution (Zemplar) 6 mcg IV QWEEK 03/06/22 [History Confirmed 09/26/23] polyethylene glycol 3350 17 gram oral powder packet (Miralax) 17 g PO DAILY 03/06/22 [History Confirmed 09/26/23] carvedilol 3.125 mg tablet 3.125 mg PO BID 11/08/22 [History Confirmed 09/26/23] lidocaine 5 % topical patch 1 patch topical DAILY 11/08/22 [History Confirmed 09/26/23] vitamin B complex-vitamin C-folic acid 0.8 mg tablet 1 tab PO DAILY 11/08/22 [History Confirmed 09/26/23] warfarin 3 mg tablet 3 mg PO QWEEK 11/08/22 [History Confirmed 09/26/23] Exam Physical Exam Vital Signs: Temp Pulse Resp BP Pulse Ox O2 Del Method 99.3 F H 116 H 20 126/56 L 94 L Room Air 10/24/23 19:09 10/25/23 01:26 10/25/23 01:26 10/25/23 01:26 10/25/23 01:26 10/25/23 01:26 Narrative: CONST- Appears well -developed, frail, older than stated age, cachectic, morbidly obese?BMI 29.5 HEAD - Normocephalic and atraumatic EENT-Sclera nonicteric, conjunctive are non-erythemic, moist oral mucosa, pharynx clear, poor dentition NECK-Supple, no cervical lymphadenopathy CARDIAC- tachycardic, irregular rhythm, S1 & S2. PULM-diminished, fine crackles to bilateral posterior bases and left mid, RA, noaccessory muscle use or cough noted ABD - Soft. Bowel sounds are normal. No distention. No tenderness EXTREM-no edema BLE calves, nontender, IV infiltrated to RUE-nonpitting edema tohand, forearm, upper arm, bruising to RUE, nurse elevates arm on pillow SKIN- W/D good turgor, chronic discoloration to BLE, left upper arm fistula-goodthrill MS- MAEX4 spontaneously with equal with equal strength- generalized weakness NEURO- A&Ox3 speech clear and tongue midline, equal facial symmetry, no focal motor deficits PSYCH-Mood, affect, and behavior appropriate Results - Hospitalist H&P Lab Results Labs: Laboratory Last Values Corrected WBC 19.9 X10E3/uL (3.8-11.6) H 10/24/23 20:13 Uncorrected WBC Count 19.9 x10E3/uL (3.8-11.6) H 10/24/23 20:13 RBC 2.94 X10E6/uL (3.60-5.00) L 10/24/23 20:13 Hgb 9.1 g/dL (11.8-15.4) L 10/24/23 20:13 Hct 27.2 % (34.0-46.4) L 10/24/23 20:13 MCV 92.5 fl (80-100) 10/24/23 20:13 MCH 31.0 pg (24.7-34.3) 10/24/23 20:13 MCHC 33.5 g/dL (32.0-35.0) 10/24/23 20:13 RDW 16.2 % (11.9-15.3) H 10/24/23 20:13 Plt Count 205 x10E3/uL (150-450) 10/24/23 20:13 MPV 8.0 fl (6.3-10.7) 10/24/23 20:13 Neut % (Auto) 95.0 % (.) 10/24/23 20:13 Lymph % (Auto) 2.0 % (.) 10/24/23 20:13 Burnet % (Auto) 2.2 % (.) 10/24/23 20:13 Eos % (Auto) 0.0 % (.) 10/24/23 20:13 Baso % (Auto) 0.8 % (.) 10/24/23 20:13 Nucleat RBC Rel Count 0.0 /100 WBC (0-0.5) 10/24/23 20:13 Neut # (Auto) 18.9 x10E3/uL (1.8-7.7) H 10/24/23 20:13 Lymph # (Auto) 0.4 x10E3/uL (1.00-4.8) L 10/24/23 20:13 Burnet # (Auto) 0.4 x10E3/uL (0.0-0.8) 10/24/23 20:13 Eos # (Auto) 0.0 x10E3/uL (0.0-0.45) 10/24/23 20:13 Baso # (Auto) 0.2 x10E3/uL (0.0-0.2) 10/24/23 20:13 Monocyte Dist Width 22.93 % (0.00-20.00) H 10/24/23 20:13 Platelet Estimate Normal (Normal) 10/24/23 20:13 Plt Morphology Comment Normal (Normal) 10/24/23 20:13 RBC Morphology N/A 10/24/23 20:13 Polychromasia Slight 10/24/23 20:13 Poikilocytosis Marked 10/24/23 20:13 Anisocytosis Slight 10/24/23 20:13 Crenated Cell Moderate 10/24/23 20:13 PT Cancelled 10/24/23 20:13 INR Cancelled 10/24/23 20:13 APTT Cancelled 10/24/23 20:13 PHA Creatinine Clear 6.34 10/24/23 20:13 Sodium 126 mmol/L (136-145) L 10/24/23 20:13 Potassium 5.6 mmol/L (3.5-5.1) H 10/25/23 00:08 Chloride 87 mmol/L (98-107) L 10/24/23 20:13 Carbon Dioxide 26.3 mmol/L (21.0-31.0) 10/24/23 20:13 Anion Gap 18.2 mEq/L (6.0-15.0) H 10/24/23 20:13 BUN 63 mg/dL (7-25) H 10/24/23 20:13 Creatinine 8.81 mg/dL (0.60-1.20) H 10/24/23 20:13 Est GFR (CKD-EPI) 4.424 mL/Min 10/24/23 20:13 Glucose 112 mg/dL (70-100) H 10/24/23 20:13 Lactic Acid 1.8 mmol/L (0.5-2.2) 10/25/23 00:08 Calcium 9.4 mg/dL (8.6-10.3) 10/24/23 20:13 Total Bilirubin 0.6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 11-30-2007 History general Narrative - Reported* [...] Hospitalization History Edema Hospitalization History Edema 11/14 [facility] Other Consult note Author Danika Lin [facility] Note Date/Time January 05, 2024 9:56am [facility] [address] [place] [address] Nephrology Consult Note Signed Patient: Edita Costa MR# : [id number] : 1950 Acct:[id number] Age/Sex: 73 / F Adm Date: 4 Loc: Room: [address] [place] [address] Type: ADM IN Attending Dr: Ricky Garcia MD Copies to: MD Ricky Nathan MD Daniel Berry II, MD~ Providers Consult Date: 01/05/24 Requesting Provider: Ricky Garcia MD Primary Care Provider: Curtis Byrd II, MD HPI Reason for Consult: ESRD management History of Present Illness: This is a 73-year-old female with medical history of ESRD, A-fib, GERD, HTN, DM,ESRD and HLD was presented to the emergency room for shortness of breath. On evaluation in the emergency room she was found to have A-fib with RVR and was started on Cardizem drip after Cardizem bolus. She was also found to have hyperkalemia and was treated medically with insulin with 50 and Lokelma. Her chest x-ray showed finding for fluid overload. I was consulted by the ER physician for emergent hemodialysis due to the fluid overload and hyperkalemia. 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 Patient currently resides at the correction and has been refusing to go for dialysis. She met with the hospice on 12/30/2023 and decided to continue dialysis on the request of the son. Patient was seen and examined bedside during her hemodialysis feeling better and denies any chest pain or palpitation Review of Systems Review of Systems All other systems reviewed & are negative unless noted below or in HPI Review of systems: Cardiovascular: denies any chest pain, palpitation Pulmonary: denies any cough, hemoptysis Gastrointestinal: denies any nausea, vomiting, diarrhea Neurological :denies any headache, numbness, weakness Endocrine: denies any polyuria, polydipsia Dermatological: denies any itching or rash [facility] Medical History (Updated 01/05/24 @ 09:46 by Danika Lin MD) Tachy-chris syndrome Severe peripheral arterial disease Sacroiliitis Proteinuria Occult blood in stools Lumbosacral spondylosis Lumbar degenerative disc disease Left peroneal nerve palsy Iron deficiency anemia due to chronic blood loss Iron deficiency anemia Intestinal ulcer Essential hypertension Dyspnea Chronic pain CHF (congestive heart failure) Blood in stool Anticoagulated Anemia of chronic disease Anemia associated with chronic renal failure C. difficile colitis Hyperkalemia Acute diarrhea Supratherapeutic INR Acute GI bleeding Atrial fibrillation with RVR Acute hyperkalemia Leukocytosis Diarrhea Acute hyponatremia Hyponatremia GERD (gastroesophageal reflux disease) Atrial fibrillation, persistent Elevated troponin Hyperlipidemia GERD (gastroesophageal reflux disease) Neuropathy Spinal stenosis GERD (gastroesophageal reflux disease) Peripheral arterial disease History of cardioversion A-fib AVF (arteriovenous fistula) left arm Dialysis patient M-W-F @ [facility] Benign hypertension with end-stage renal disease Hyperlipidemia Tricuspid regurgitation HTN (hypertension) ESRD (end stage renal disease) Surgical History S/P arteriovenous (AV) fistula creation History of tubal ligation History of orthopedic surgery denies any orthopedic surgeries Hx of hysterectomy partial Hx of cholecystectomy History of tonsillectomy and adenoidectomy Family History Daughter Drug abuse Sister Thyroid cancer Diabetes Sister Back problem Father Diabetes Myocardial infarction Brother Diabetes Mother Gastric ulcer Son Diabetes Brother Diabetes Legacy FamHx Relation: Brother(s) Hypertension Legacy FamHx Relation: Brother(s) Brother Hypertension Legacy FamHx Relation: Brother(s) Father Diabetes Heart disease Hypertension Mother Gastric ulcer Son Diabetes Sister Cancer Legacy FamHx Problem: Diagnosed with Cancer Social History Smoking Status: Former smoker Tobacco Type: cigarettes Substance Use Type: None Social History Comments: lives and cares for sisters mother in law Meds Medications & Allergies Allergies Penicillins Allergy (Severe, Verified 12/19/23 12:21) Swelling of Lip/Tongue/Throat, anaphylaxis tuberculin,PPD,multi-puncture Allergy (Intermediate, Verified 12/19/23 12:21) Redness of Skin atorvastatin (From Lipitor) Allergy (Unknown, Verified 12/19/23 12:21) Cramping of the Muscles, bodyaches Home Medications bumetanide 1 mg tablet 1 mg PO QHS 11/17/19 [History Confirmed 01/05/24] rosuvastatin 10 mg tablet 10 mg PO DAILY 06/23/20 [History Confirmed 01/05/24] biotin 5,000 mcg disintegrating tablet 10,000 mcg PO DAILY 01/26/21 [History Confirmed 01/05/24] docusate sodium 100 mg capsule (Colace) 100 mg PO DAILY Constipation 01/26/21 [History Confirmed 01/05/24] acetaminophen 650 mg tablet,extended release 650 mg PO Q12H PRN Pain 03/06/22 [History Confirmed 01/05/24] midodrine 10 mg tablet 10 mg PO TID 10/26/23 [History Confirmed 01/05/24] diltiazem HCl 120 mg capsule,extended release 24 hr 120 mg PO DAILY #0 caps 10/30/23 [Rx Confirmed 01/05/24] midodrine 5 mg tablet 5 mg PO MOWEFR PRN dialysis #0 tabs 10/30/23 [Rx Confirmed 01/05/24] polyethylene glycol 3350 17 gram oral powder packet (Miralax) 17 g PO DAILY PRN constipation #14 ea 10/30/23 [Rx Confirmed 01/05/24] B Complex-Vitamin C 1 tab PO DAILY 01/05/24 [History Confirmed 01/05/24] omeprazole 20 mg capsule,delayed release 20 mg PO DAILY 01/05/24 [History Confirmed 01/05/24] warfarin 1 mg tablet 0.5 mg PO HS 01/05/24 [History Confirmed 01/05/24] Active Medications: Active Medications Acetaminophen (Acetaminophen 325 Mg Tablet) 650 mg PO Q6HR PRN PRN Reason: Pain Scale 1 - 3 or fever Stop: 01/04/25 05:05 Darbepoetin Herbie (Darbepoetin Herbie In Polysorbat 25 Mcg/Ml Vial) 25 mcg IV-PUSHWe@1000 CYNTHIA; Protocol Stop: 01/07/25 09:59 Diltiazem HCl (Cardizem) 100 mg in 100 mls @ 10 mls/hr IV .Q10H CYNTHIA; Protocol Stop: 01/04/25 03:44 Last Titration: 01/05/24 06:11 Dose: 15 mg/hr, 15 mls/hr Sodium Chloride (0.9% Sodium Chloride 1,000 Ml) 1,000 mls @ 0 mls/hr MISCELLANE.Q0M PRN PRN Reason: Dialysis Stop: 01/04/25 08:29 Last Infusion: 01/05/24 08:54 Dose: Infused Midodrine (Midodrine 5 Mg Tablet) 5 mg PO PRN PRN PRN Reason: Dialysis Stop: 01/04/25 08:29 Sodium Chloride (Sodium Chloride 0.9 % 10 Ml Syringe) 0 ml IV-PUSH PRN PRN PRN Reason: Flush Stop: 01/04/25 03:49 Last Admin: 01/05/24 04:05 Dose: 10 ml Sodium Chloride (Sodium Chloride 0.9 % 10 Ml Syringe) 0 ml IV-PUSH PRN PRN PRN Reason: Flush Stop: 01/04/25 08:29 Last Admin: 01/05/24 08:54 Dose: 10 ml Exam Physical Exam Vital Signs: Temp Pulse Resp BP Pulse Ox O2 Del Method 96.8 F L 93 16 96/64 L 94 L Room Air 01/05/24 09:04 01/05/24 09:04 01/05/24 09:04 01/05/24 09:04 01/05/24 09:04 01/05/24 09:04 Narrative: General: Appears comfortable and not in distress Heart: S1-S2, no rub Lung: Bilateral air entry, no wheezing or crackles Abdomen: Soft, positive bowel sounds Extremities: No edema, no cyanosis Head: Atraumatic, normocephalic Ear: No gross hearing Deficit or external ear redness Eyes: No pallor or redness Neck: No JVD or visible mass Skin: No rashes , warm to touch 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 I have reviewed the report(s) and am incorporating any findings in the treatment plan of this patient where applicable. A&P - Nephrology Assessment/Plan (1) Atrial fibrillation with rapid ventricular response: Assessment/Problem Details: Patient presented with shortness of breath and was found to have A-fib with RVR. She is currently on Cardizem drip. She takes Coumadin for CVA prophylaxis. 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 She is supposed to have the dialysis on MWF schedule but has been missing her dialysis. (3) Acute on chronic diastolic (congestive) heart failure: Assessment/Problem Details: Patient presented with shortness of breath and was found to have a CHF on chest x-ray due to the missing dialysis and A-fib with RVR. (4) Secondary hyperparathyroidism: Assessment/Problem Details: She has secondary hyperparathyroidism due to the ESRD currently receives IV Zemplar with dialysis. (5) Anemia in chronic kidney disease: Assessment/Problem Details: Her hemoglobin is within the goal. She received Aranesp with dialysis. (6) Missed dialysis: Assessment/Problem Details: She has been missing her dialysis quite often and only goes once a week. (7) Hyperkalemia: Assessment/Problem Details: She has hyperkalemia due to the missing dialysis. Plan * Emergent hemodialysis today due to the life-threatening hyperkalemia and fluid overload. * Continue A-fib management as per primary hospitalist team. * Will continue midodrine intradialytic hypotension. * Continue Aranesp 25 mcg once weekly with dialysis * Patient was educated about the importance of the dialysis. * Monitor CBC and renal function daily. * Thanks for consult. Will continue follow-up with you. Please feel free to call us with any question. Documented By: Danika Lin MD 01/05/24 0937 Signed By: <Electronically signed by Danika Lin MD> 01/05/24 0956 [facility] Work Phone: Consult note Author [facility] Note Date/Time January 06, 2024 12:14pm [facility] [address] [place] [address] Cardiology Consult Note Signed Patient: Edita Costa MR# : [id number] : 1950 Acct:[id number] Age/Sex: 73 / F Adm Date: 4 Loc: Room: [address] [place] [address] Type: ADM IN Attending Dr: Coreen Jaffe MD Copies to: MD Salinas Yun II, MD, [facility] Coreen Jaffe MD~ Cardiology HPI History of Present Illness Consult Date: 01/06/24 Reason for Consult: Atrial fibrillation with RVR HPI: Ms. Costa is a 73 year old female who is being seen at request of the hospitalist for atrial fibrillation. Patient was seen by myself September 2023 forsimilar presentation. She has permanent atrial fibrillation and has been treated with anticoagulation and rate control. In the past she had cardioversion and was on antiarrhythmic therapy and had followed previously withDr. Quintero. Lately she has been treated with rate control and anticoagulation. She has end-stage kidney disease and has been on dialysis but has missed at least 10 days of dialysis and presented with volume overload, pulmonary edema and atrial fibrillation with RVR. The patient also was found to be hyperkalemicwith potassium level of 6 mmol/L. Apparently her son talked her into resuming dialysis and she is willing to do so. She was given intravenous Cardizem which helped slow down the heart rate. She indicated she has been compliant taking her medications though. Her last echocardiogram September 2023 revealed ejection fraction 50-55% with dilated left atrium. She has no significant valvular heartdisease and has had no previous myocardial ischemia evaluation back with [facility]. She does have significant PAD and has been followed with vascular surgery with previous interventions. She does have significant orthostatic hypotension requiring treatment with midodrine. She is on warfarin and Cardizem for atrial fibrillation. Currently the heart rate is better controlled, INR is therapeutic. Potassium has normalized. The patient will be switched from IV Cardizem to oral Cardizem at the dose she was on at home 120 mg daily. Since the patient is in the hospital we can do what we have not done previously which is to assess for myocardial ischemia given her vascular disease. A Lexiscan MPIis recommended to be done and probably can do it as early as tomorrow. Review of Systems Review of Systems Review of systems: Denies any chest pain but had palpitations and dyspnea on presentation. Has hadno active bleeding and denies any syncope. Has had no falls or injuries. Denies any dysuria. She does have still small amount of urine that she produces. Other review of system was unremarkable. [facility] Medical History (Updated 01/06/24 @ 12:13 by Salinas Ortega MD) Tachy-chris syndrome Severe peripheral arterial disease Sacroiliitis Proteinuria Occult blood in stools Lumbosacral spondylosis Lumbar degenerative disc disease Left peroneal nerve palsy Iron deficiency anemia due to chronic blood loss Iron deficiency anemia Intestinal ulcer Essential hypertension Dyspnea Chronic pain CHF (congestive heart failure) Blood in stool Anticoagulated Anemia of chronic disease Anemia associated with chronic renal failure C. difficile colitis Hyperkalemia Acute diarrhea Supratherapeutic INR Acute GI bleeding Atrial fibrillation with RVR Acute hyperkalemia Leukocytosis Diarrhea Acute hyponatremia Hyponatremia GERD (gastroesophageal reflux disease) Atrial fibrillation, persistent Elevated troponin Hyperlipidemia GERD (gastroesophageal reflux disease) Neuropathy Spinal stenosis GERD (gastroesophageal reflux disease) Peripheral arterial disease History of cardioversion A-fib AVF (arteriovenous fistula) left arm Dialysis patient M-W-F @ [facility] [place] Maximo Benign hypertension with end-stage renal disease Hyperlipidemia Tricuspid regurgitation HTN (hypertension) ESRD (end stage renal disease) Surgical History S/P arteriovenous (AV) fistula creation History of tubal ligation History of orthopedic surgery denies any orthopedic surgeries Hx of hysterectomy partial Hx of cholecystectomy History of tonsillectomy and adenoidectomy Family History Daughter Drug abuse Sister Thyroid cancer Diabetes Sister Back problem Father Diabetes Myocardial infarction Brother Diabetes Mother Gastric ulcer Son Diabetes Brother Diabetes Legacy FamHx Relation: Brother(s) Hypertension Legacy FamHx Relation: Brother(s) Brother Hypertension Legacy FamHx Relation: Brother(s) Father Diabetes Heart disease Hypertension Mother Gastric ulcer Son Diabetes Sister Cancer Legacy FamHx Problem: Diagnosed with Cancer Social History Smoking Status: Former smoker Tobacco Type: cigarettes Substance Use Type: None Social History Comments: lives and cares for sisters mother in law Meds Medications and Allergies Allergies Penicillins Allergy (Severe, Verified 12/19/23 12:21) Swelling of Lip/Tongue/Throat, anaphylaxis tuberculin,PPD,multi-puncture Allergy (Intermediate, Verified 12/19/23 12:21) Redness of Skin atorvastatin (From Lipitor) Allergy (Unknown, Verified 12/19/23 12:21) Cramping of the Muscles, bodyaches Home Medications bumetanide 1 mg tablet 1 mg PO QHS 11/17/19 [History Confirmed 01/05/24] rosuvastatin 10 mg tablet 10 mg PO DAILY 06/23/20 [History Confirmed 01/05/24] biotin 5,000 mcg disintegrating tablet 10,000 mcg PO DAILY 01/26/21 [History Confirmed 01/05/24] docusate sodium 100 mg capsule (Colace) 100 mg PO DAILY Constipation 01/26/21 [History Confirmed 01/05/24] acetaminophen 650 mg tablet,extended release 650 mg PO Q12H PRN Pain 03/06/22 [History Confirmed 01/05/24] midodrine 10 mg tablet 10 mg PO TID 10/26/23 [History Confirmed 01/05/24] diltiazem HCl 120 mg capsule,extended release 24 hr 120 mg PO DAILY #0 caps 10/30/23 [Rx Confirmed 01/05/24] midodrine 5 mg tablet 5 mg PO MOWEFR PRN dialysis #0 tabs 10/30/23 [Rx Confirmed 01/05/24] polyethylene glycol 3350 17 gram oral powder packet (Miralax) 17 g PO DAILY PRN constipation #14 ea 10/30/23 [Rx Confirmed 01/05/24] B Complex-Vitamin C 1 tab PO DAILY 01/05/24 [History Confirmed 01/05/24] omeprazole 20 mg capsule,delayed release 20 mg PO DAILY 01/05/24 [History Confirmed 01/05/24] warfarin 1 mg tablet 0.5 mg PO HS 01/05/24 [History Confirmed 01/05/24] Exam Physical Exam Vital Signs: Temp Pulse Resp BP Pulse Ox O2 Del Method 97.9 F 70 18 86/52 L 95 Room Air 01/06/24 09:18 01/06/24 11:30 01/06/24 09:18 01/06/24 11:30 01/06/24 09:18 01/06/24 09:18 Const General: cooperative, comfortable and no acute distress Nutritional Appearance: overweight Orientation: alert, awake and oriented x3 HEENT Head: normocephalic and atraumatic Ears: hearing grossly normal bilaterally Nose: external nose normal Face and sinus: normal facial exam Eyes General: dysmorphic (Patient has xanthelasma on the left eye) Conjunctivae: conjunctivae normal Pupils: PERRL Neck Neck: trachea midline and supple Neck mass: No Thyroid: thyroid normal Carotids: normal carotid upstroke Resp Effort & Inspection: normal respiratory effort Auscultation: clear to auscultation bilaterally Cardio Jugular venous pressure: no JVD Palpation: normal PMI Rate: regular rate Rhythm: abnormal rhythm irregularly irregular Heart Sounds: S1 normal and S2 normal GI Inspection: normal to inspection Palpation: soft and no hepatosplenomegaly Auscultation: normal bowel sounds Extrem Other: Atrophy changes in her toes bilaterally Results - Cardiology Labs 01/06/24 05:17 01/06/24 05:17 Lab results: Cardiac Enzymes 01/06/24 Range/Units 05:17 AST 20 (13-39) U/L CBC 01/06/24 Range/Units 05:17 RBC 4.02 (3.60-5.00) X10E6/uL Hgb 12.0 (11.8-15.4) g/dL Hct 36.4 (34.0-46.4) % Plt Count 267 (150-450) x10E3/uL Neut # (Auto) 6.0 (1.8-7.7) x10E3/uL Lymph # (Auto) 1.7 (1.00-4.8) x10E3/uL Burnet # (Auto) 0.6 (0.0-0.8) x10E3/uL Eos # (Auto) 0.1 (0.0-0.45) x10E3/uL Baso # (Auto) 0.1 (0.0-0.2) x10E3/uL Comprehensive Metabolic Panel 01/06/24 Range/Units 05:17 Sodium 137 (136-145) mmol/L Potassium 4.0 D (3.5-5.1) mmol/L Chloride 94 L (98-107) mmol/L Carbon Dioxide 28.2 (21.0-31.0) mmol/L BUN 23 D (7-25) mg/dL Creatinine 6.14 H D (0.60-1.20) mg/dL Glucose 78 (70-100) mg/dL Calcium 9.0 (8.6-10.3) mg/dL AST 20 (13-39) U/L ALT 11 (7-52) U/L Alkaline Phosphatase 86 (34-104) U/L Total Protein 5.8 L (6.4-8.9) gm/dL Albumin 3.2 L (3.5-5.7) gm/dL Intake and Output 01/05/24 01/06/24 01/06/24 23:59 07:59 15:59 Intake Total 240 / 940 100 / 600 500 / 600 Output Total 2003 0 / 0 Balance 240 / -1064 100 / 600 500 / 600 Intake: IV 100 / 600 500 / 600 dilTIAZem 100 MG -*NaCl* 100 mg 100 / 100 In 100 ml @ 10 MG/HR 10 mls/hr IV .Q10H CYNTHIA Rx#:[id number] Sodium Chloride 0.9% 1,000 ml 1 500 / 500 ,000 ml @ As Directed MISCELLANE .Q0M PRN Rx#: [id number] Oral 240 / 240 0 / 0 Output: Urine 0 / 0 0 / 0 Other: # Incontinent Bowel Movements 1 Weight 77.2 kg Date of Last Bowel Movement 01/04/24 Patient Weight 01/06/24 23:59 Weight 77.2 kg Lab 01/05/24 01/06/24 03:38 05:17 PT 19.7 H 22.3 H INR 1.7 2.0 APTT 34.8 A&P - Cardiology (1) Atrial fibrillation with rapid ventricular response: Assessment/Problem Details: Aggravated by missing dialysis and volume overload, improved Plan: Continue warfarin, resume oral Cardizem and discontinue intravenous Cardizem Code(s): I48.91 - Unspecified atrial fibrillation (2) Volume overload: Assessment/Problem Details: Responded to dialysis Plan: Continue dialysis Code(s): E87.70 - Fluid overload, unspecified (3) Hyperkalemia: Assessment/Problem Details: Caused by missing dialysis, resolved Plan: Continue dialysis Code(s): E87.5 - Hyperkalemia (4) ESRD (end stage renal disease): Plan: Continue dialysis monitored by nephrology Code(s): N18.6 - End stage renal disease (5) Orthostatic hypotension: Plan: Continue midodrine Code(s): I95.1 - Orthostatic hypotension (6) Peripheral arterial disease: Plan: The patient could have underlying coronary artery disease for which Lexiscan Cardiolite stress test is ordered Code(s): I73.9 - Peripheral vascular disease, unspecified Documented By: Salinas Ortega MD, [facility] 4 1203 Signed By: <Electronically signed by [facility] Salinas Ortega> 01/06/24 1214 [facility] Work Phone: Consult note Author [facility] Note Date/Time January 06, 2024 3:11pm [facility] [address] [place] [address] Palliative Care Consult Note Signed Patient: Edita Costa MR# : [id number] : 1950 Acct:[id number] Age/Sex: 73 / F Adm Date: 4 Loc: Room: [address] [place] [address] Type: ADM IN Attending Dr: Coreen Jaffe MD Copies to: DO Curtis Kim II, MD Ruta Semaskiene, MD~ HPI Data of Consult Date of Consult: 01/06/2024 Requesting Physician: Coreen Jaffe MD Primary Care Provider: Curtis Byrd II, MD Consult Narrative Reason for Consult: goals of care HPI: Ms Costa has a history of ESRD on HD since 2019, HTN, A fib, DM2, CHF, anemia of chronic disease, PAD who presented to the ER on 01/04 due to concerns of dyspnea. She was sent via EMS from her correction. Patient has been refusing dialysis over the last month and has only gone twice. In the ER, patient's labs showed creatinine of 11.46, BUN 58, Potassium 6. Given lokelma, calcium, glucose/insulin, and dextrose. Bicarb was 23. EKG showed changes. Cardiology was contacted and felt most likely related to non-ischemic causes. Did show afib with RVR. She was started on IV dilatiazem. Chest xray showed volume overload with opacity at the right base, concerning for pleural effusion.Nephrology was consulted and suggested admission for urgent dialysis. She was also noted to have wound on right great toe, concerning for possible gangrene. She was admitted for renal failure and a fib with RVR. She is scheduled for stress test tomorrow. Palliative care has been consulted to assist with goals of care. Patient is laying in bed, returning from dialysis. She denies shortness of breath, chest pain, pain, nausea or vomiting. Denies palpitations or heart skipping beats. Does feel tired. States dialysis is going okay. Patient jade was brought to the hospital because she couldn't breath. Has fair appetite. She is very hard of hearing. patient is originially from [place] but moved to [place] at 5years old. She has two children. Unfortunately, her daughter within the last month. Her son Emile is HPOA. He feels patient's physical and mental health has declined since daughter passed. They did not have a good relationship and she was not able to repair their relationship. She is and her Hong 4years ago. She has 2 grandchildren, 3 great grandchildren. She alsohas 3 sisters and 1 brother still alive. She is very close with family. 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 She is somewhat spiritual but does not practice specific bridgett. She states she does not have many hobbies. Most of her time is spent watching TV. Patient's bed Emile is at bedside. He states mom has chosen not to go to dialysis over the last month because she is newly bedbound and its harder for her to go. Prior to recent illness in Oct, she was living independently with a friend. She had never missed dialysis before. It was difficult for her to go and she experienced severe fatigue after. She didn't like going, but was still willing to go. Since getting pneumonia and c diff in Oct, she was discharged toS for therapy. She was not progressing with therapy and has transitioned to LTC. Patient states things at the correction were going good. She needs helptransferring and is dependent on all ADLS, except feeding. Emile feels mom declines going to dialysis because its easy to say no now that she is bedbound. When asked what her barrier to dialysis is, she states the time. She does not like being there for so long. She also states it does make her feel poorly after. Emile ultimately wants her to be comfortable and respect her wishes. She has expressed wanting to stop dialysis to one of her sisters but has told the other she wants to continue going. Family and patient did meet with hospiceat the facility last week but Lori chose to continue dialysis and did not sign onto services. Reviewed patient's wishes. She states she wants to continue dialysis. Asked patient if she has ever thought about when she would want to discontinue dialysis completely. She states she has not. Reviewed that continuing dialysis requires her to go when scheduled. otherwise its ineffective and she would come to and from hospital frequently with worsening symptoms. She states she does not want recurrent hospitalizations. Reviewed transitioning to comfort based approach with goals of keeping patient comfortable and out of hospital. Patient not ready to discontinue dialysis completely. Patient's son Emile is agreeable but is worried that she will change her mind and continue refusing dialysis. Discussed resuscitation preferences. She confirms recent change of DNRCCA without intubation. Review of Systems Review of Systems All other systems reviewed & are negative unless noted below or in HPI [facility] Medical History (Updated 01/06/24 @ 15:09 by Tania Waddell DO) Tachy-chris syndrome Severe peripheral arterial disease Sacroiliitis Proteinuria Occult blood in stools Lumbosacral spondylosis Lumbar degenerative disc disease Left peroneal nerve palsy Iron deficiency anemia due to chronic blood loss Iron deficiency anemia Intestinal ulcer Essential hypertension Dyspnea Chronic pain CHF (congestive heart failure) Blood in stool Anticoagulated Anemia of chronic disease Anemia associated with chronic renal failure C. difficile colitis Hyperkalemia Acute diarrhea Supratherapeutic INR Acute GI bleeding Atrial fibrillation with RVR Acute hyperkalemia Leukocytosis Diarrhea Acute hyponatremia Hyponatremia GERD (gastroesophageal reflux disease) Atrial fibrillation, persistent Elevated troponin Hyperlipidemia GERD (gastroesophageal reflux disease) Neuropathy Spinal stenosis GERD (gastroesophageal reflux disease) Peripheral arterial disease History of cardioversion A-fib AVF (arteriovenous fistula) left arm Dialysis patient M-W-F @ [facility] [place] [facility]imo Benign hypertension with end-stage renal disease Hyperlipidemia Tricuspid regurgitation HTN (hypertension) ESRD (end stage renal disease) Surgical History S/P arteriovenous (AV) fistula creation History of tubal ligation History of orthopedic surgery denies any orthopedic surgeries Hx of hysterectomy partial Hx of cholecystectomy History of tonsillectomy and adenoidectomy Family History Daughter Drug abuse Sister Thyroid cancer Diabetes Sister Back problem Father Diabetes Myocardial infarction Brother Diabetes Mother Gastric ulcer Son Diabetes Brother Diabetes Legacy FamHx Relation: Brother(s) Hypertension Legacy FamHx Relation: Brother(s) Brother Hypertension Legacy FamHx Relation: Brother(s) Father Diabetes Heart disease Hypertension Mother Gastric ulcer Son Diabetes Sister Cancer Legacy FamHx Problem: Diagnosed with Cancer Social History Smoking Status: Former smoker Tobacco Type: cigarettes Substance Use Type: None Social History Comments: lives and cares for sisters mother in law Allergies & Medications Medications and Allergies Allergies Penicillins Allergy (Severe, Verified 12/19/23 12:21) Swelling of Lip/Tongue/Throat, anaphylaxis tuberculin,PPD,multi-puncture Allergy (Intermediate, Verified 12/19/23 12:21) Redness of Skin atorvastatin (From Lipitor) Allergy (Unknown, Verified 12/19/23 12:21) Cramping of the Muscles, bodyaches Home Medications bumetanide 1 mg tablet 1 mg PO QHS 11/17/19 [History Confirmed 01/05/24] rosuvastatin 10 mg tablet 10 mg PO DAILY 06/23/20 [History Confirmed 01/05/24] biotin 5,000 mcg disintegrating tablet 10,000 mcg PO DAILY 01/26/21 [History Confirmed 01/05/24] docusate sodium 100 mg capsule (Colace) 100 mg PO DAILY Constipation 01/26/21 [History Confirmed 01/05/24] acetaminophen 650 mg tablet,extended release 650 mg PO Q12H PRN Pain 03/06/22 [History Confirmed 01/05/24] midodrine 10 mg tablet 10 mg PO TID 10/26/23 [History Confirmed 01/05/24] diltiazem HCl 120 mg capsule,extended release 24 hr 120 mg PO DAILY #0 caps 10/30/23 [Rx Confirmed 01/05/24] midodrine 5 mg tablet 5 mg PO MOWEFR PRN dialysis #0 tabs 10/30/23 [Rx Confirmed 01/05/24] polyethylene glycol 3350 17 gram oral powder packet (Miralax) 17 g PO DAILY PRN constipation #14 ea 10/30/23 [Rx Confirmed 01/05/24] B Complex-Vitamin C 1 tab PO DAILY 01/05/24 [History Confirmed 01/05/24] omeprazole 20 mg capsule,delayed release 20 mg PO DAILY 01/05/24 [History Confirmed 01/05/24] warfarin 1 mg tablet 0.5 mg PO HS 01/05/24 [History Confirmed 01/05/24] Active Medications Acetaminophen (Acetaminophen 325 Mg Tablet) 650 mg PO Q6HR PRN PRN Reason: Pain Scale 1 - 3 or fever Stop: 01/04/25 05:05 Atorvastatin Calcium (Atorvastatin 20 Mg Tablet) 10 mg PO DAILY [facility] Stop: 01/05/25 08:59 Last Admin: 01/06/24 14:11 Dose: 10 mg Darbepoetin Herbie (Darbepoetin Herbie In Polysorbat 25 Mcg/Ml Vial) 25 mcg IV-PUSHWe@1000 [facility]; Protocol Stop: 01/07/25 09:59 Diltiazem HCl (Diltiazem Cd.24hr 120 Mg Cap.Er.24h) 120 mg PO DAILY [facility] Stop: 01/05/25 13:59 Last Admin: 01/06/24 14:15 Dose: 120 mg Docusate Sodium (Docusate 100 Mg Capsule) 100 mg PO DAILY [facility] Stop: 01/05/25 08:59 Last Admin: 01/06/24 14:10 Dose: 100 mg Sodium Chloride (0.9% Sodium Chloride 1,000 Ml) 1,000 mls @ 0 mls/hr MISCELLANE.Q0M PRN PRN Reason: Dialysis Stop: 01/04/25 08:29 Last Infusion: 01/06/24 11:28 Dose: Infused Midodrine (Midodrine 5 Mg Tablet) 5 mg PO PRN PRN PRN Reason: Dialysis Stop: 01/04/25 08:29 Last Admin: 01/05/24 09:40 Dose: 5 mg Midodrine (Midodrine 5 Mg Tablet) 10 mg PO TID.7A.12P.5P CYNTHIA Stop: 01/04/25 16:59 Last Admin: 01/06/24 11:25 Dose: 10 mg Pantoprazole Sodium (Pantoprazole 40 Mg Tablet.Dr) 40 mg PO DAILY CYNTHIA Stop: 01/05/25 08:59 Last Admin: 01/06/24 14:10 Dose: 40 mg Polyethylene Glycol (Polyethylene Glycol 3350 17 Gm Powd.Pack) 17 gm PO DAILY PRN PRN Reason: constipation Stop: 01/04/25 14:16 Sodium Chloride (Sodium Chloride 0.9 % 10 Ml Syringe) 0 ml IV-PUSH PRN PRN PRN Reason: Flush Stop: 01/04/25 03:49 Last Admin: 01/05/24 04:05 Dose: 10 ml Sodium Chloride (Sodium Chloride 0.9 % 10 Ml Syringe) 0 ml IV-PUSH PRN PRN PRN Reason: Flush Stop: 01/04/25 08:29 Last Admin: 01/06/24 11:25 Dose: 10 ml Sodium Chloride (Sodium Chloride 0.9 % 10 Ml Syringe) 0 ml IV-PUSH PRN PRN PRN Reason: Flush Stop: 01/05/25 12:08 Vitamin B Complex/Folic Acid (B Complex W-C No.20/Folic Acid 1 Mg Capsule) 1 mgPO DAILY CYNTHIA Stop: 01/05/25 08:59 Last Admin: 01/06/24 14:10 Dose: 1 mg Warfarin Sodium (Warfarin - Pharmacy Dosing) 1 each MISCELLANE ONCE PRN; Protocol PRN Reason: ZZ.Pharmacy Consult Stop: 01/04/25 15:16 Warfarin Sodium (Warfarin 1 Mg Tablet) 0.5 mg PO ONCE ONE Stop: 01/06/24 17:01 Exam Physical Exam Vital Signs: Temp Pulse Resp BP Pulse Ox O2 Del Method 97.7 F 102 H 16 106/57 L 91 L Room Air 01/06/24 13:30 01/06/24 13:47 01/06/24 13:47 01/06/24 13:47 01/06/24 13:47 01/06/24 13:47 Const General: cooperative, comfortable, not in acute distress and frail appearing Nutritional Appearance: average body habitus Orientation: alert, awake and oriented x3 Limitations: mental status not altered HEENT Head: normal to inspection Mouth: oral mucosae normal Teeth and gingiva: abnormal dentition Eyes Alignment and Position: abnormal alignment Neck Neck: normal visual inspection Resp Effort & Inspection: normal respiratory effort and not tachypneic Auscultation: clear to auscultation bilaterally, no rhonchi and no wheezes Cardio Rate: not tachycardic Rhythm: abnormal rhythm Heart Sounds: S1 normal and S2 normal GI Palpation: soft, not firm and no guarding Skin Wounds: wounds noted (right great toe) Neuro General: patient alert, patient awake and patient oriented x3 Cranial Nerves: CN's II-XII intact bilaterally Cognition: normal cognition Speech: speech normal Gait: gait abnormal Motor: strength abnormal Extrem General: abnormal gait and no edema Psych Appearance: grossly normal Mood: congruent mood Affect: normal affect Speech and Movement: speech and movement normal Attitude: cooperative Thought Process: normal Thought Content: normal Insight: insight good Judgment: judgment good Other: pleasant, cooperative, calm, laughs and made jokes Results - Palliative Care Labs 01/06/24 05:17 01/06/24 05:17 Labs: Laboratory Last Values Corrected WBC 8.5 X10E3/uL (3.8-11.6) 01/06/24 05:17 Uncorrected WBC Count 8.5 x10E3/uL (3.8-11.6) 01/06/24 05:17 RBC 4.02 X10E6/uL (3.60-5.00) 01/06/24 05:17 Hgb 12.0 g/dL (11.8-15.4) 01/06/24 05:17 Hct 36.4 % (34.0-46.4) 01/06/24 05:17 MCV 90.5 fl (80-100) 01/06/24 05:17 MCH 29.7 pg (24.7-34.3) 01/06/24 05:17 MCHC 32.9 g/dL (32.0-35.0) 01/06/24 05:17 RDW 17.6 % (11.9-15.3) H 01/06/24 05:17 Plt Count 267 x10E3/uL (150-450) 01/06/24 05:17 MPV 7.1 fl (6.3-10.7) 01/06/24 05:17 Neut % (Auto) 71.3 % (.) 01/06/24 05:17 Lymph % (Auto) 19.5 % (.) 01/06/24 05:17 Burnet % (Auto) 7.1 % (.) 01/06/24 05:17 Eos % (Auto) 1.5 % (.) 01/06/24 05:17 Baso % (Auto) 0.6 % (.) 01/06/24 05:17 Nucleat RBC Rel Count 0.1 /100 WBC (0-0.5) 01/06/24 05:17 Neut # (Auto) 6.0 x10E3/uL (1.8-7.7) 01/06/24 05:17 Lymph # (Auto) 1.7 x10E3/uL (1.00-4.8) 01/06/24 05:17 Burnet # (Auto) 0.6 x10E3/uL (0.0-0.8) 01/06/24 05:17 Eos # (Auto) 0.1 x10E3/uL (0.0-0.45) 01/06/24 05:17 Baso # (Auto) 0.1 x10E3/uL (0.0-0.2) 01/06/24 05:17 Monocyte Dist Width 20.38 % (0.00-20.00) H 01/05/24 03:38 PT 22.3 Seconds (9.0-12.9) H 01/06/24 05:17 INR 2.0 01/06/24 05:17 APTT 34.8 Seconds (25.1-36.5) 01/05/24 03:38 PHA Creatinine Clear 8.82 01/06/24 05:17 Sodium 137 mmol/L (136-145) 01/06/24 05:17 Potassium 4.0 mmol/L (3.5-5.1) D 01/06/24 05:17 Chloride 94 mmol/L (98-107) L 01/06/24 05:17 Carbon Dioxide 28.2 mmol/L (21.0-31.0) 01/06/24 05:17 Anion Gap 18.8 mEq/L (6.0-15.0) H 01/06/24 05:17 BUN 23 mg/dL (7-25) D 01/06/24 05:17 Creatinine 6.14 mg/dL (0.60-1.20) H D 01/06/24 05:17 Est GFR (CKD-EPI) 6.823 mL/Min 01/06/24 05:17 Glucose 78 mg/dL (70-100) 01/06/24 05:17 POC Glucose 84 mg/dl 01/06/24 06:46 POC Glucose Comment Glu2: cleaned meter 01/05/24 06:44 Calcium 9.0 mg/dL (8.6-10.3) 01/06/24 05:17 Phosphorus 7.2 mg/dL (2.5-4.5) H 01/05/24 03:38 Magnesium 2.3 mg/dL (1.9-2.7) 01/05/24 03:38 Total Bilirubin 0.7 mg/dl (0.3-1.0) 01/06/24 05:17 AST 20 U/L (13-39) 01/06/24 05:17 ALT 11 U/L (7-52) 01/06/24 05:17 Alkaline Phosphatase 86 U/L (34-104) 01/06/24 05:17 Total Creatine Kinase 29 U/L (30-223) L 01/05/24 03:38 Troponin I High Sens 62.1 pg/mL (0.0-15.0) H* 01/05/24 03:38 Total Protein 5.8 gm/dL (6.4-8.9) L 01/06/24 05:17 Albumin 3.2 gm/dL (3.5-5.7) L 01/06/24 05:17 Globulin 2.6 gm/dL 01/06/24 05:17 Albumin/Globulin Ratio 1.2 01/06/24 05:17 Assessment/Plan (1) ESRD (end stage renal disease): Code(s): N18.6 - End stage renal disease (2) Counseling regarding advance care planning and goals of care: Code(s): Z71.89 - Other specified counseling Plan Reviewed patient's overall condition and goals. She is not ready to stop dialysis. Discussed importance of going to dialysis routinely to avoid hospitalizations and worsening symptoms. She is agreeable to going. Reviewed alternative with comfort based approach. Encouraged patient to consider when she would decide to stop dialysis completely. Active listening and support provided to son Emile. All questions and concerns addressed. Resuscitation preferences DNRCCA without intubation. Documented By: Tania Waddell DO 01/06/24 142 Signed By: <Electronically signed by Tania Waddell DO> 01/06/24 1511 [facility] Work Phone: Discharge summary Author Vinh Scott [facility] October 30, 2023 2:42pm Note Date/Time October 30, 2023 2:42pm [facility] [address] [place] [address] Discharge Summary Signed Patient: Edita Costa MR# : [id number] : 1950 Acct:[id number] Age/Sex: 73 / F Adm Date: 4 Loc: Room: [address] [place] [address]: Vinh Scott MD Copies to: MD Vinh Yun II, MD~ Providers Date of Discharge: 10/30/23 Discharging Provider: Vinh Scott Primary Care Provider: Curtis Byrd Consults: 10/25/23 01:27 Consult to Nephrology Routine Comment: Consulting Provider: [facility] - Nephrology Has Provider Been Notified: Yes Date of Notification: 10/25/23 Time of Notification: 07:14 Reason for Consult: Dialysis Treatment Consult to Occupational Therapy Routine Comment: Physician Instructions: Consult to OT for:: Evaluation and Treat Consult to Physical Therapy Routine Comment: Physician Instructions: Consult to PT for:: Evaluation and Treat 10/25/23 02:17 Consult to Gastroenterology Routine Comment: Consulting Provider: [facility] - Gastroenterology Reason For Exam: Heme positive stool Has Provider Been Notified: Yes Date of Notification: 10/25/23 Time of Notification: 07:13 10/25/23 13:31 Consult to Cardiology Routine Comment: Consulting Provider: [facility] Reason For Exam: afib rvr Has Provider Been Notified: Yes Date of Notification: 10/25/23 Time of Notification: 14:01 10/27/23 17:59 Consult to Dietitian Routine Comment: Reason for Consult: PO Supplement Eval&Order Discharge Diagnosis (1) C. difficile colitis: (2) ESRD (end stage renal disease): (3) Hyponatremia: (4) Atrial fibrillation with RVR: (5) Supratherapeutic INR: (6) Acute diarrhea: (7) Bilateral pneumonia: Final Diagnosis Final Discharge Diagnosis: as above Summary Hospital Course Hospital course: Ms. Costa is a 73-year-old female with a PMH of ESRD on HD, A-fib on warfarin, PAD, HTN, HLD presented to the emergency room for severe diarrhea andweakness. Assessment and plan as listed below: GI bleed unlikely- H/H stable- No signs of overt GI bleed. Diarrhea-pt reports diarrhea since Saturday morning last week, no complaints of abdominal pain, nausea or vomiting Evaluated by GI, clinically no overt signs of bleeding, recommended conservativetherapy Continue to maintain PPI daily H/H stable so far, will transfuse as needed Stool bacterial workup negative to date Positive for C.diff, started on treatment. Stools are forming, no further loose stools, clinically improving and feeling better, tolerating diet. C.diff colitis infection Leukocytosis downtrending and has normalized Bilateral pneumonia Denies abdominal pain, C. difficile positive, stools forming today and overall feeling much better. CT AP done on admission, no obvious acute intra-abdominal pathology, showed bilateral consolidations in the lower lobes, concern for pneumonia, DiscontinuedLevaquin given her positive C. difficile and high risk antibiotics for C. difficile. Completed IV doxycycline for now for pneumonia coverage, completed 5 days treatment Blood cultures so far negative C.diff positive. started on oral vancomycin. Will continue this regimen upon discharge to complete course. A-fib with RVR, required Cardizem drip Cardiology consult and following, meds adjusted INR today 3.7. GI evaluated and does not suspected acute GI bleed, currently wasworked up for diarrhea H/H stable, continue to monitor for any signs of overt GI bleed. Did not requireblood transfusion while here. Resumed warfarin dosing per pharmacy. Resume home dose upon discharge. Fluid removal with dialysis sessions done while here Elevated troponin-x 2, but remains flat, denies any chest pain Acute hyperkalemia-with underlying end-stage renal disease, nephrology consultedfor dialysis treatment, resolved with treatment Chronic hypotension on midodrine therapy at home, resumed As of today, patient remained hemodynamically stable, rate controlled, transition to oral Cardizem as directed. Continue to maintain oral vancomycin treatment for C. difficile, patient reports improvement in her symptoms, she feels clinically better, stool forming, no further diarrhea. Verbal and writteninstructions given to the patient upon discharge. Patient is hemodynamically stable for discharge at this time, CM followed for discharge needs. Plan to discharge from [facility]. Condition Condition at Discharge: Stable Time Spent with Patient Time spent providing/coordinating discharge services (# min): 46 Discharge Plan Discharge Plan Patient Disposition: Long Term Facility Activity: Ambulate as Tolerated Diet: Renal and Other Comment: Maintain a fluid restriction of 1200 mls per day Additional Instructions: SNF TO MANAGE: Follow precautions per protocol--patient positive for C diff on 10/26/23 PT/OT to eval and treat Monitor VS per protocol Monitor daily weights Monitor GI assessment and for any signs of bleeding--C diff diarrhea, GI bleed Monitor Cardiac assessment--Atrial fib Dietitian recommendations: *Magic Cup, 1 container, daily with a meal Please draw a PT/INR on Saturday--Coumadin to be managed by SNF providers Continue Hemodialysis as scheduled. Maintain high risk fall precautions Care to be managed by SNF providers Prescriptions: New midodrine 5 mg Tablet 5 mg PO MOWEFR PRN (Reason: dialysis) Qty: 0 0RF pantoprazole 40 mg Tablet,Delayed Release (Dr/Ec) 40 mg PO DAILY Qty: 30 0RF vancomycin [Firvanq] 50 mg/mL Recon Soln 125 mg PO QID 10 Days Qty: 0 0RF diltiazem HCl 120 mg Capsule,Extended Release 24hr 120 mg PO DAILY Qty: 0 0RF Continued bumetanide 1 mg tablet 1 mg PO QHS Rx Instructions: TAKE 1 TABLET BY MOUTH TWICE DAILY sevelamer carbonate 800 mg tablet 2,400 mg PO TID Patient Comments: TAKE 1 TABLET BY MOUTH THREE TIMES DAILY WITH MEALS Rx Instructions: TWO (2)WITH EVERY MEAL AND ONE (1) WITH SNACKS rosuvastatin 10 mg Tablet 10 mg PO DAILY Aranesp (in polysorbate) 40 mcg/0.4 mL Syringe 25 mcg subcut QWEEK docusate sodium [Colace] 100 mg Capsule 100 mg PO BID PRN (Reason: Constipation) biotin 5,000 mcg Tablet,Disintegrating 10,000 mcg PO DAILY midodrine 10 mg tablet 10 mg PO TID warfarin 2 mg tablet 2 mg PO 6XW Patient Comments: TAKE 1 TABLET BY MOUTH DAILY DIRECTED 2mg all days except 3mg on Fridays Rx Instructions: M,,,,Sa,Starks paricalcitol [Zemplar] 5 mcg/mL Solution 6 mcg IV QWEEK acetaminophen 650 mg Tablet Extended Release 650 mg PO Q12H PRN (Reason: Pain) cinacalcet 30 mg Tablet 30 mg PO 3XW diclofenac sodium 2 % Solution In Packet 1 packet TOPICAL Q12H Rx Instructions: apply to single affected knee B complex-vitamin C-folic acid 0.8 mg Tablet 1 tab PO DAILY warfarin 3 mg Tablet 3 mg PO QWEEK Rx Instructions: On fridays Changed polyethylene glycol 3350 [Miralax] 17 gram Powder In Packet 17 g PO DAILY PRN (Reason: constipation) Qty: 14 0RF Discontinued aspirin 81 mg tablet,delayed release (DR/EC) 81 mg PO DAILY pantoprazole [Protonix] 20 mg tablet,delayed release (DR/EC) 20 mg PO QAM midodrine 5 mg Tablet 10 mg PO TID carvedilol 3.125 mg tablet 3.125 mg PO BID Patient Comments: TAKE 1 TABLET BY MOUTH TWICE DAILY Rx Instructions: Hold AM dose HD days Exam Physical Exam Vital Signs: Temp Pulse Resp BP Pulse Ox O2 Del Method O2 Flow Rate 98.0 F 74 18 122/76 96 Room Air 1 10/30/23 13:27 10/30/23 13:27 10/30/23 13:27 10/30/23 13:27 10/30/23 13:10/30/23 13:10/30/23 04:00 Narrative: Const General: cooperative, more comfortable HEENT Normal oropharyngeal mucosa without any ulcers or exudates Eyes: Conjunctiva normal Pulmonary Auscultation: Diminished breath sounds, no wheezes Cardiovascular Rate: normal rate Rhythm: irregular rhythm Heart Sounds: S1 normal, S2 normal and no murmurs GI Inspection: non-distended Palpation: soft, not firm and nontender. No rigidity or rebound. Deferred Neuro General: alert, awake and oriented x3. No obvious new focal deficit Musculoskeletal: normal range of motion Extrem General: no cyanosis, no pedal edema Psych Appearance: calm, cooperative Diagnostic Studies Completed and Pending Studies Pending studies at discharge: 10/24/23 22:50 EKG [ECG 12 lead ECG] Stat 10/26/23 09:45 UA [Urinalysis] Stat 10/26/23 12:13 Sputum Culture Routine 10/31/23 05:00 Prothrombin Time INR IN AM Basic Metabolic Panel [CHEM] IN AM Complete Blood Count Auto Diff IN AM 11/01/23 05:00 Prothrombin Time INR IN AM Basic Metabolic Panel [CHEM] IN AM 11/02/23 05:00 Prothrombin Time INR IN AM 11/03/23 05:00 Prothrombin Time INR IN AM 11/04/23 05:00 Prothrombin Time INR IN AM 11/05/23 05:00 Prothrombin Time INR IN AM 11/06/23 05:00 Prothrombin Time INR IN AM 11/07/23 05:00 Prothrombin Time INR IN AM 11/08/23 05:00 Prothrombin Time INR IN AM 11/09/23 05:00 Prothrombin Time INR IN AM 11/10/23 05:00 Prothrombin Time INR IN AM 11/11/23 05:00 Prothrombin Time INR IN AM Labs on day of discharge: 10/30/23 12:56: POC Glucose 101, POC Glucose Comment Glu2: cleaned meter 10/30/23 05:26: Corrected WBC 10.6, Uncorrected WBC Count 10.6, RBC 2.77 L, Hgb 8.7 L, Hct 25.6 L, MCV 92.3, MCH 31.2, MCHC 33.8, RDW 16.7 H, Plt Count 210, MPV 7.8, Neut % (Auto) 81.7, Lymph % (Auto) 8.3, Burnet % (Auto) 7.0, Eos % (Auto) 2.6, Baso % (Auto) 0.4, Nucleat RBC Rel Count 0.2, Neut # (Auto) 8.7 H, Lymph # (Auto) 0.9 L, Burnet # (Auto) 0.7, Eos # (Auto) 0.3, Baso # (Auto) 0.0, Platelet Estimate Normal, Plt Morphology Comment Normal, RBC Morphology N/A, Polychromasia Slight, Hypochromasia Slight, Poikilocytosis Slight, Anisocytosis Moderate, Ovalocytes Slight, Crenated Cell Slight, PT 41.0 H, INR 3.7, PHA Creatinine Clear 10.61, Sodium 129 L, Potassium 4.0, Chloride 91 L, Carbon Dioxide 27.1, Anion Gap 14.9, BUN 48 H, Creatinine 5.28 H D, Est GFR (CKD-EPI) 8.178, Glucose 87, Calcium 9.0 Documented By: Vinh Scott MD 10/30/23 14 34 Signed By: <Electronically signed by Vinh Scott MD> 10/30/23 [facility] Work Phone: [place] [address] Discharge Summary Signed Patient: Edita Costa MR# : [id number] : 1950 Acct:[id number] Age/Sex: 73 / F Adm Date: 4 Loc: Room: [address] [place] [address]: Coreen Jaffe MD Copies to: MD Coreen Yun II, MD~ Providers Date of Discharge: 01/07/24 Discharging Provider: Coreen Jaffe Primary Care Provider: Curtis Byrd Consults: 01/05/24 05:09 Consult to Nephrology Routine Comment: Consulting Provider: Danika Lin Has Provider Been Notified: Yes Date of Notification: 01/05/24 Time of Notification: 07:13 Reason for Consult: Dialysis Treatment Hyper/Hypo Kalemia 01/05/24 09:33 Consult to Cardiology Routine Comment: Consulting Provider: Salinas Ortega Reason For Exam: A fib with RVR Has Provider Been Notified: Yes Date of Notification: 01/05/24 Time of Notification: 10:22 24 15:09 Consult to Palliative Care Doctor Routine Comment: Consulting Provider: [facility] - Palliative Care Reason For Exam: goals of care Has Provider Been Notified: Yes Date of Notification: 01/05/24 Time of Notification: 15:23 Discharge Diagnosis (1) Atrial fibrillation with rapid ventricular response: (2) Volume overload: (3) Hyperkalemia: (4) ESRD (end stage renal disease): (5) Orthostatic hypotension: (6) Peripheral arterial disease: Final Diagnosis Final Discharge Diagnosis: Acute on chronic diastolic congestive heart failure with ejection fraction 50- 55% due to missed hemodialysis Atrial fibrillation with rapid ventricular rate, on anticoagulation therapy withCoumadin End-stage renal disease on hemodialysis Hyperkalemia Non-ST elevation WV type II, status post nuclear stress test negative for inducible ischemia Summary Hospital Course Hospital course: 73 years old female presented from [facility]. Patient does have a history of end-stage renal disease and supposed to be on dialysis, however she refused. She became short of breath so was admitted to the hospital for furtherevaluation and treatment. Patient did complain of palpitation. However she denied any cough any chest pain any fever any chills any dizziness any syncopal episode. Patient was refusing her dialysis treatment as she was not feeling well and she did not feel like going. On admission patient was found to have hyperkalemia with potassium of 6 which was treated. Patient was also found to have atrial fibrillation with rapid ventricular rate and left bundle branch block. Cardiology was consulted and patient underwent Cardizem drip with controlled heart rate on discharged she was switched to diltiazem 120 daily. Recommended stress test which was done while in-house and was negative for inducible ischemia. Nephrology was consulted and patient underwent dialysis with significant improvement in her respiratory status. Palliative care was consulted and after discussion with the family and the patient, shewanted to proceed with further treatment including dialysis. On the day of discharge patient was feeling significantly better. However she still complains of being tired. But her shortness of breath improved. Physical exam: General -awake, alert, oriented ?3, not in acute distress, however she appears to be chronically ill and weak Cardiovascular -S1 with S2, irregular rate Pulmonary -diminished breath sounds bilaterally Gastrointestinal - abdomen is soft, nondistended, nontender, bowel sounds positive, there is no rigidity, no rebound Extremities -trace edema bilaterally Neurological -no focal neurological dysfunction noted The patient CARE and further plan was discussed with the patient and the patient's son. All questions answered. Patient expressed understanding and wasdischarged assisted facility in a stable condition. The patient was given written and verbal instructions. The recommendations were made to follow- up as outpatient within one week.The patient was informed if his symptoms get worse to go backto emergency room or call his primary care physician office. Time spent on the discharge day 35 min. Time Spent with Patient Time spent providing/coordinating discharge services (# min): 35 Discharge Plan Discharge Plan Patient Disposition: Long Term Facility Activity: No Activity Restriction Diet: Renal Additional Instructions: SNF to manage: -PT/OT to eval and treat -Monitor VS per protocol -Fall precautions -Perform cardiovascular assessments -Continue hemodialysis treatments on -- -Monitor intake and output -Daily weight -Wound care daily: *Betadine swab to right great toe eschar. -Change dressing every 3 days: *Mepilex border foam to Coccyx for protection. -Obtain PT/INR in 1 day as ordered -Care to be managed by SNF providers. Prescriptions: Continued bumetanide 1 mg tablet 1 mg PO QHS Rx Instructions: TAKE 1 TABLET BY MOUTH TWICE DAILY rosuvastatin 10 mg Tablet 10 mg PO DAILY docusate sodium [Colace] 100 mg Capsule 100 mg PO DAILY biotin 5,000 mcg Tablet,Disintegrating 10,000 mcg PO DAILY midodrine 10 mg tablet 10 mg PO TID midodrine 5 mg Tablet 5 mg PO MOWEFR PRN (Reason: dialysis) Qty: 0 0RF diltiazem HCl 120 mg Capsule,Extended Release 24hr 120 mg PO DAILY Qty: 0 0RF polyethylene glycol 3350 [Miralax] 17 gram Powder In Packet 17 g PO DAILY PRN (Reason: constipation) Qty: 14 0RF acetaminophen 650 mg Tablet Extended Release 650 mg PO Q12H PRN (Reason: Pain) warfarin 1 mg tablet 0.5 mg PO HS B Complex-Vitamin C 1 tab PO DAILY Rx Instructions: 1 tab; omeprazole 20 mg capsule,delayed release(DR/EC) 20 mg PO DAILY Other Ambulatory Orders: Prothrombin Time INR (Routine) Timeframe: 1 Day Location: Determined by Patient Ordered By: Coreen Jaffe Follow Up: Salinas Ortega MD [Active Staff] - 02/11/24 8:30 am Curtis Byrd II, MD [Primary Care Provider] - (Please arrange a follow-up appointment once discharged from [facility]. ) Tania Waddell DO [Active Staff - D.O.] - (Call if needed. ) Exam Physical Exam Vital Signs: Temp Pulse Resp BP Pulse Ox O2 Del Method 36.4 C L 86 18 142/80 H 91 L Room Air 01/07/24 15:05 01/07/24 15:05 01/07/24 15:05 01/07/24 15:05 01/07/24 15:05 01/07/24 15:05 Documented By: Coreen Jaffe MD 01/08/241626 Signed By: 01/08/24 1639 [facility] Coreen Jaffe [facility] Note Date/Time January 08, 2024 4:39pm [facility] [address] [place] [address] Discharge Summary Signed Patient: Edita Costa MR# : [id number] : 1950 Acct:[id number] Age/Sex: 73 / F Adm Date: 4 Loc: Room: [address] [place] [address]: Coreen Jaffe MD Copies to: MD Coreen Yun II, MD~ Providers Date of Discharge: 01/07/24 Discharging Provider: Coreen Jaffe Primary Care Provider: Curits Byrd Consults: 01/05/24 05:09 Consult to Nephrology Routine Comment: Consulting Provider: Danika Lin Has Provider Been Notified: Yes Date of Notification: 01/05/24 Time of Notification: 07:13 Reason for Consult: Dialysis Treatment Hyper/Hypo Kalemia 01/05/24 09:33 Consult to Cardiology Routine Comment: Consulting Provider: Salinas Ortega Reason For Exam: A fib with RVR Has Provider Been Notified: Yes Date of Notification: 01/05/24 Time of Notification: 10:22 01/05/24 15:09 Consult to Palliative Care Doctor Routine Comment: Consulting Provider: [facility] - Palliative Care Reason For Exam: goals of care Has Provider Been Notified: Yes Date of Notification: 01/05/24 Time of Notification: 15:23 Discharge Diagnosis (1) Atrial fibrillation with rapid ventricular response: (2) Volume overload: (3) Hyperkalemia: (4) ESRD (end stage renal disease): (5) Orthostatic hypotension: (6) Peripheral arterial disease: Final Diagnosis Final Discharge Diagnosis: Acute on chronic diastolic congestive heart failure with ejection fraction 50- 55% due to missed hemodialysis Atrial fibrillation with rapid ventricular rate, on anticoagulation therapy withCoumadin End-stage renal disease on hemodialysis Hyperkalemia Non-ST elevation W[place] type II, status post nuclear stress test negative for inducible ischemia Summary Hospital Course Hospital course: 73 years old female presented from [facility]. Patient does have a history of end-stage renal disease and supposed to be on dialysis, however she refused. She became short of breath so was admitted to the hospital for furtherevaluation and treatment. Patient did complain of palpitation. However she denied any cough any chest pain any fever any chills any dizziness any syncopal episode. Patient was refusing her dialysis treatment as she was not feeling well and she did not feel like going. On admission patient was found to have hyperkalemia with potassium of 6 which was treated. Patient was also found to have atrial fibrillation with rapid ventricular rate and left bundle branch block. Cardiology was consulted and patient underwent Cardizem drip with controlled heart rate on discharged she was switched to diltiazem 120 daily. Recommended stress test which was done while in-house and was negative for inducible ischemia. Nephrology was consulted and patient underwent dialysis with significant improvement in her respiratory status. Palliative care was consulted and after discussion with the family and the patient, she wanted to proceed with further treatment including dialysis. On the day of discharge patient was feeling significantly better. However she still complains of being tired. But her shortness of breath improved. Physical exam: General -awake, alert, oriented ?3, not in acute distress, however she appears to be chronically ill and weak Cardiovascular -S1 with S2, irregular rate Pulmonary -diminished breath sounds bilaterally Gastrointestinal - abdomen is soft, nondistended, nontender, bowel sounds positive, there is no rigidity, no rebound Extremities -trace edema bilaterally Neurological -no focal neurological dysfunction noted The patient CARE and further plan was discussed with the patient and the patient's son. All questions answered. Patient expressed understanding and wasdischarged assisted facility in a stable condition. The patient was given written and verbal instructions. The recommendations were made to follow-up as outpatient within one week.The patient was informed if his symptoms get worse to go back to emergency room or call his primary care physician office. Time spent on the discharge day 35 min. Time Spent with Patient Time spent providing/coordinating discharge services (# min): 35 Discharge Plan Discharge Plan Patient Disposition: Long Term Facility Activity: No Activity Restriction Diet: Renal Additional Instructions: SNF to manage: -PT/OT to eval and treat -Monitor VS per protocol -Fall precautions -Perform cardiovascular assessments -Continue hemodialysis treatments on -Monitor intake and output -Daily weight -Wound care daily: *Betadine swab to right great toe eschar. -Change dressing every 3 days: *Mepilex border foam to Coccyx for protection. -Obtain PT/INR in 1 day as ordered -Care to be managed by SNF providers. Prescriptions: Continued bumetanide 1 mg tablet 1 mg PO QHS Rx Instructions: TAKE 1 TABLET BY MOUTH TWICE DAILY rosuvastatin 10 mg Tablet 10 mg PO DAILY docusate sodium [Colace] 100 mg Capsule 100 mg PO DAILY biotin 5,000 mcg Tablet,Disintegrating 10,000 mcg PO DAILY midodrine 10 mg tablet 10 mg PO TID midodrine 5 mg Tablet 5 mg PO MOWEFR PRN (Reason: dialysis) Qty: 0 0RF diltiazem HCl 120 mg Capsule,Extended Release 24hr 120 mg PO DAILY Qty: 0 0RF polyethylene glycol 3350 [Miralax] 17 gram Powder In Packet 17 g PO DAILY PRN (Reason: constipation) Qty: 14 0RF acetaminophen 650 mg Tablet Extended Release 650 mg PO Q12H PRN (Reason: Pain) warfarin 1 mg tablet 0.5 mg PO HS B Complex-Vitamin C 1 tab PO DAILY Rx Instructions: 1 tab; omeprazole 20 mg capsule,delayed release(DR/EC) 20 mg PO DAILY Other Ambulatory Orders: Prothrombin Time INR (Routine) Timeframe: 1 Day Location: Determined by Patient Ordered By: Coreen Jaffe Follow Up: Salinas Ortega MD [Active Staff] - 02/11/24 8:30 am Curtis Byrd II, MD [Primary Care Provider] - (Please arrange a follow-up appointment once discharged from SNF. ) Tania Waddell DO [Active Staff - D.O.] - (Call if needed. ) Exam Physical Exam Vital Signs: Temp Pulse Resp BP Pulse Ox O2 Del Method 36.4 C L 86 18 142/80 H 91 L Room Air 01/07/24 15:05 01/07/24 15:05 01/07/24 15:05 01/07/24 15:05 01/07/24 15:05 01/07/24 15:05 Documented By: Coreen Jaffe MD 01/08/24 1627 Signed By: <Electronically signed by Coreen Jaffe MD> 01/08/24 1639 [facility] Work Phone: Evaluation noteNo assessment information available [facility] Work Phone: Evaluation note* Diagnosis Onset Date Resolution Status Dialysis AV fistula malfunction acute [facility] Work Phone: Evaluation note* Diagnosis Onset Date Resolution Status AVF (arteriovenous fistula) acute Dialysis AV fistula malfunction acute [facility] Work Phone: Evaluation noteNo InformationNort Live [employer] Other Evaluation note* Diagnosis Stage 5 chronic kidney disease on dialysis (CMS/HCC)- Primary Mixed hyperlipidemia Persistent atrial fibrillation (CMS/HCC) Atrial fibrillation Neurogenic orthostatic hypotension (CMS/HCC) Former smoker Personal history of tobacco use, presenting hazards to health documented in this encounter [facility] Work Phone: Evaluation note* Diagnosis Onset Date Resolution Status AVF (arteriovenous fistula) acute Dialysis AV fistula malfunction acute ESRD (end stage renal disease) acute [facility] Work Phone: Evaluation note* Diagnosis Onset Date Resolution Status Peripheral arterial disease acute [facility] Work Phone: Evaluation note* Diagnosis Onset Date Resolution Status Peripheral arterial disease acute Acute GI bleeding acute Acute hyperkalemia acute Acute hyponatremia acute Atrial fibrillation with RVR acute Diarrhea acute Elevated troponin acute ESRD (end stage renal disease) acute GERD (gastroesophageal reflux disease) acute Hyponatremia acute Leukocytosis acute Supratherapeutic INR acute [facility] Work Phone: Evaluation note* Diagnosis Onset Date Resolution Status Peripheral arterial disease acute Acute diarrhea acute Acute GI bleeding acute Acute hyperkalemia acute Acute hyponatremia acute Atrial fibrillation with RVR acute Atrial fibrillation, persistent acute C. difficile colitis acute Diarrhea acute Elevated troponin acute ESRD (end stage renal disease) acute GERD (gastroesophageal reflux disease) acute Hyperkalemia acute Hyponatremia acute Leukocytosis acute Peripheral arterial disease acute Supratherapeutic INR acute [facility] Work Phone: History and physical note Author Curtis Lino [facility] Note Date/Time January 05, 2024 5:26am [facility] [address] [place] [address] Hospitalist H&P Signed Patient: Edita Costa MR# : [id number] : 1950 Acct:[id number] Age/Sex: 73 / F Adm Date: 4 Loc: Room: [address] [place] [address] Type: ADM IN Attending Dr: Curtis Lino MD Copies to: MD Curtis Yun II, MD~ [facility] DATE OF EXAMINATION: 01/05/24 CHIEF COMPLAINT: dyspnea HISTORY OF PRESENT ILLNESS: 73 year old woman with history of ESRD on HD, paroxysmal AF on warfarin, PAD, HTN, DLD who presented to the ED complaining of acute onset dyspnea starting just prior to presentation Per the patient she awoke from sleep this evening feeling acutely short of breath with tachypalpitations. She reports [facility], and denies any fever chills cough chest pain orthopnea lightheadedness or syncope Pt was last dialyzed 12/19 and has been refusing her treatments since because ihaven't felt like going pt presented to the ED for evaluation, vital signs on arrival T 97.7 P 150 R 18 BP 147/91 SaO2 92% on RA. labs notable for K of 6.0 ECG with AF with RVR 155 bpm and LBBB pt was given diltiazem bolus/gtt, calcium gluconate, insulin, D50, and kayexelate and is admitted for further evaluation and mgmt ROS: 10 systems reviewed and were negative except as noted in the [facility] Medical History Tachy-chris syndrome Severe peripheral arterial disease Sacroiliitis Proteinuria Occult blood in stools Lumbosacral spondylosis Lumbar degenerative disc disease Left peroneal nerve palsy Iron deficiency anemia due to chronic blood loss Iron deficiency anemia Intestinal ulcer Essential hypertension Dyspnea Chronic pain CHF (congestive heart failure) Blood in stool Anticoagulated Anemia of chronic disease Anemia associated with chronic renal failure C. difficile colitis Hyperkalemia Acute diarrhea Supratherapeutic INR Acute GI bleeding Atrial fibrillation with RVR Acute hyperkalemia Leukocytosis Diarrhea Acute hyponatremia Hyponatremia GERD (gastroesophageal reflux disease) Atrial fibrillation, persistent Elevated troponin Hyperlipidemia GERD (gastroesophageal reflux disease) Neuropathy Spinal stenosis GERD (gastroesophageal reflux disease) Peripheral arterial disease History of cardioversion A-fib AVF (arteriovenous fistula) left arm Dialysis patient M-W-F @ [facility] Maximo Benign hypertension with end-stage renal disease Hyperlipidemia Tricuspid regurgitation HTN (hypertension) ESRD (end stage renal disease) Surgical History S/P arteriovenous (AV) fistula creation History of tubal ligation History of orthopedic surgery denies any orthopedic surgeries Hx of hysterectomy partial Hx of cholecystectomy History of tonsillectomy and adenoidectomy Family History Daughter Drug abuse Sister Thyroid cancer Diabetes Sister Back problem Father Diabetes Myocardial infarction Brother Diabetes Mother Gastric ulcer Son Diabetes Brother Diabetes Legacy FamHx Relation: Brother(s) Hypertension Legacy FamHx Relation: Brother(s) Brother Hypertension Legacy FamHx Relation: Brother(s) Father Diabetes Heart disease Hypertension Mother Gastric ulcer Son Diabetes Sister Cancer Legacy FamHx Problem: Diagnosed with Cancer Social History Smoking Status: Former smoker Tobacco Type: cigarettes Substance Use Type: None Social History Comments: lives and cares for sisters mother in law Meds Medications and Allergies Allergies Penicillins Allergy (Severe, Verified 12/19/23 12:21) Swelling of Lip/Tongue/Throat, anaphylaxis tuberculin,PPD,multi-puncture Allergy (Intermediate, Verified 12/19/23 12:21) Redness of Skin atorvastatin (From Lipitor) Allergy (Unknown, Verified 12/19/23 12:21) Cramping of the Muscles, bodyaches Home Medications bumetanide 1 mg tablet 1 mg PO QHS 11/17/19 [History Confirmed 01/05/24] rosuvastatin 10 mg tablet 10 mg PO DAILY 06/23/20 [History Confirmed 01/05/24] biotin 5,000 mcg disintegrating tablet 10,000 mcg PO DAILY 01/26/21 [History Confirmed 01/05/24] docusate sodium 100 mg capsule (Colace) 100 mg PO DAILY Constipation 01/26/21 [History Confirmed 01/05/24] acetaminophen 650 mg tablet,extended release 650 mg PO Q12H PRN Pain 03/06/22 [History Confirmed 01/05/24] midodrine 10 mg tablet 10 mg PO TID 10/26/23 [History Confirmed 01/05/24] diltiazem HCl 120 mg capsule,extended release 24 hr 120 mg PO DAILY #0 caps 10/30/23 [Rx Confirmed 01/05/24] midodrine 5 mg tablet 5 mg PO MOWEFR PRN dialysis #0 tabs 10/30/23 [Rx Confirmed 01/05/24] polyethylene glycol 3350 17 gram oral powder packet (Miralax) 17 g PO DAILY PRN constipation #14 ea 10/30/23 [Rx Confirmed 01/05/24] B Complex-Vitamin C 1 tab PO DAILY 01/05/24 [History Confirmed 01/05/24] omeprazole 20 mg capsule,delayed release 20 mg PO DAILY 01/05/24 [History Confirmed 01/05/24] warfarin 1 mg tablet 0.5 mg PO HS 01/05/24 [History Confirmed 01/05/24] Exam Physical Exam Vital Signs: Temp Pulse Resp BP Pulse Ox O2 Del Method 97.7 F 107 H 18 128/59 L 93 L Room Air 01/05/24 03:28 01/05/24 04:50 01/05/24 04:50 01/05/24 04:50 01/05/24 04:50 01/05/24 04:50 Const General: cooperative, no acute distress and well developed HEENT Head: normal to inspection Ears: external ears normal Nose: external nose normal Face and sinus: normal facial exam Mouth: oral mucosae normal Throat: posterior oropharynx normal Eyes General: appearance normal, both eyes and all related structures Visual Maki: normal visual maki by confrontation Alignment and Position: alignment abnormal right exotropia Sclera: sclerae normal Pupils: PERRL and accommodation normal Neck Neck: normal visual inspection, no lymphadenopathy and supple Thyroid: thyroid normal Lymphatic: no lymphadenopathy noted Chest Chest palpation & inspection: normal inspection of the chest Resp Effort & Inspection: normal respiratory effort, able to speak in complete sentences and symmetric chest movement Auscultation: diminished lung sounds bilaterally in the lower lung maki Cardio Palpation: normal PMI Rate: tachycardic Rhythm: abnormal rhythm irregularly irregular Heart Sounds: S1 normal and S2 normal GI Inspection: normal to inspection Palpation: soft Auscultation: normal bowel sounds General: bladder normal to palpation Bimanual Exam- Vagina & Uterus: bladder normal to palpation Musc Cervical Spine: cervical ROM normal Thoracic/Lumbar Spine: thoracic and lumbar spine normal to inspection Skin General: no rashes or lesions noted and turgor normal Neuro General: patient alert, patient awake and patient oriented x3 Cranial Nerves: CN's II-XII intact bilaterally Cognition: normal cognition Speech: speech normal Motor: muscle tone normal throughout and strength 5/5 throughout Sensory Exam: no sensory deficits noted Extrem General: normal to inspection and full ROM Psych Appearance: grossly normal Mental Status: mental status grossly normal Affect: normal affect Speech and Movement: speech and movement normal Attitude: cooperative Results - Hospitalist H&P Lab Results Labs: Laboratory Last Values Corrected WBC 9.1 X10E3/uL (3.8-11.6) 01/05/24 03:38 Uncorrected WBC Count 9.1 x10E3/uL (3.8-11.6) 01/05/24 03:38 RBC 3.94 X10E6/uL (3.60-5.00) 01/05/24 03:38 Hgb 11.6 g/dL (11.8-15.4) L 01/05/24 03:38 Hct 35.9 % (34.0-46.4) 01/05/24 03:38 MCV 91.2 fl (80-100) 01/05/24 03:38 MCH 29.5 pg (24.7-34.3) 01/05/24 03:38 MCHC 32.4 g/dL (32.0-35.0) 01/05/24 03:38 RDW 17.4 % (11.9-15.3) H 01/05/24 03:38 Plt Count 292 x10E3/uL (150-450) 01/05/24 03:38 MPV 7.1 fl (6.3-10.7) 01/05/24 03:38 Neut % (Auto) 83.3 % (.) 01/05/24 03:38 Lymph % (Auto) 11.4 % (.) 01/05/24 03:38 Burnet % (Auto) 3.9 % (.) 01/05/24 03:38 Eos % (Auto) 0.2 % (.) 01/05/24 03:38 Baso % (Auto) 1.2 % (.) 01/05/24 03:38 Nucleat RBC Rel Count 0.1 /100 WBC (0-0.5) 01/05/24 03:38 Neut # (Auto) 7.6 x10E3/uL (1.8-7.7) 01/05/24 03:38 Lymph # (Auto) 1.0 x10E3/uL (1.00-4.8) 01/05/24 03:38 Burnet # (Auto) 0.4 x10E3/uL (0.0-0.8) 01/05/24 03:38 Eos # (Auto) 0.0 x10E3/uL (0.0-0.45) 01/05/24 03:38 Baso # (Auto) 0.1 x10E3/uL (0.0-0.2) 01/05/24 03:38 Monocyte Dist Width 20.38 % (0.00-20.00) H 01/05/24 03:38 PT 19.7 Seconds (9.0-12.9) H 01/05/24 03:38 INR 1.7 01/05/24 03:38 APTT 34.8 Seconds (25.1-36.5) 01/05/24 03:38 PHA Creatinine Clear 4.62 01/05/24 03:38 Sodium 135 mmol/L (136-145) L 01/05/24 03:38 Potassium 6.0 mmol/L (3.5-5.1) H 01/05/24 03:38 Chloride 93 mmol/L (98-107) L 01/05/24 03:38 Carbon Dioxide 23.1 mmol/L (21.0-31.0) 01/05/24 03:38 Anion Gap 24.9 mEq/L (6.0-15.0) H 01/05/24 03:38 BUN 58 mg/dL (7-25) H 01/05/24 03:38 Creatinine 11.46 mg/dL (0.60-1.20) H 01/05/24 03:38 Est GFR (CKD-EPI) 3.227 mL/Min 01/05/24 03:38 Glucose 114 mg/dL (70-100) H 01/05/24 03:38 Calcium 9.3 mg/dL (8.6-10.3) 01/05/24 03:38 Phosphorus 7.2 mg/dL (2.5-4.5) H 01/05/24 03:38 Magnesium 2.3 mg/dL (1.9-2.7) 01/05/24 03:38 Total Bilirubin 0.7 mg/dl (0.3-1.0) 01/05/24 03:38 AST 16 U/L (13-39) 01/05/24 03:38 ALT 11 U/L (7-52) 01/05/24 03:38 Alkaline Phosphatase 99 U/L (34-104) 01/05/24 03:38 Total Creatine Kinase 29 U/L (30-223) L 01/05/24 03:38 Troponin I High Sens 62.1 pg/mL (0.0-15.0) H* 01/05/24 03:38 Total Protein 6.5 gm/dL (6.4-8.9) 01/05/24 03:38 Albumin 3.0 gm/dL (3.5-5.7) L 01/05/24 03:38 Globulin 3.5 gm/dL 01/05/24 03:38 Albumin/Globulin Ratio 0.9 01/05/24 03:38 Assessment & Plan Assessment/Plan (1) Atrial fibrillation with rapid ventricular response: (2) Missed dialysis: (3) Hyperkalemia: (4) Volume overload: Plan Atrial Fibrillation with Rapid Ventricular Response admit to medicine monitor on telemetry continue diltiazem gtt, titrate to ventricular rate <100 K >4 MG >2 INR subtherapeutic- will give dose of warfarin when med rec completed Missed dialysis Hyperkalemia Volume overload - pt last got HD 10/25, has been refusing treatments - given kayexelate, insulin/D50, calcium gluconate in ED ED spoke to nephrology- plan for hemodialysis later today monitor on telemetry check bmp daily to monitor K FULL CODE VTE prophylaxis- on warfarin IP vs OBS Justification Based on differential dx, clinical care plan, and risk of adverse events, if untreated, in my clinical judgement this patient requires an acute care setting as: INPATIENT because of an expectation of an over 2 midnight stay. Estimated length of stay (# of days): 2 Documented By: Curtis Lino MD 01/05/24512 Signed By: <Electronically signed by Crutis Lino MD> 01/05/24525 [facility] Work Phone: History of Present illness Narrative* [...] transplantation candidacy and I advised her that yarsani of maintenance of sinus rhythm probably would [...] advocated a modest diet and weight loss. -[facility] 250 DO Work Phone: History of Present [...] reiterated the merits of diet and weight loss.[facility] 250 DO Work Phone: History of Present [...] reiterated the merits of diet and weight loss.[facility] 250 DO Work Phone: History of Present [...] reiterated the merits of diet and weight loss.[facility] Work Phone: History of Present illness [...] reiterated the merits of diet and weight loss.[facility] Work Phone: History of Present illness [...] modification and exercise with weight loss were discussed.-[facility] 250 DO Work Phone: History of Present [...] modification and exercise with weight loss were discussed.[facility] Davies DO Work Phone: History of [...] before the merits of diet were advocated. [facility] Work Phone: History of Present [...] in the mornings of her dialysis procedure. [facility] Davies DO Work Phone: Hospital Discharge instructions Additional Instructions Remove dressing in 24 hours. No heaving lifting or straining for 2 days.[facility] Work Phone: Hospital Discharge instructions Additional Instructions Remove bolster and dressing at next dialysis appointment.[facility] Work Phone: Hospital Discharge instructions Additional Instructions Remove dressing [facility] next [facility] Work Phone: Progress note Author Ricky Garcia [facility] Note Date/Time January 05, 2024 3:14pm [facility] [address] [place] [address] Hospitalist Progress Note Signed with Addenda Patient: Edita Costa MR# : [id number] : 1950 Acct:[id number] Age/Sex: 73 / F Adm Date: 4 Loc: Room: [address] [place] [address] Type: ADM IN Attending Dr: Ricky Garcia MD Copies to: ~ ADDENDUM1 I was called by the nurse as her son-healthcare power of associate attorney wanted to talkto me. I had a long conversation with the son and other family members. He mentioned that they want to change the CODE STATUS. For last 2 months her health has not been as it was before as per the son. She had pneumonia and C. difficile infection and has been bedbound. Previously she used to go for dialysis but recently has not been able to. They had been discussing with hospice informally. The patient and her family mentioned that they do not want any chest compressions or intubation if her heart stops but want to continue with the current medication and dialysis as needed. They are also want palliative medicine on consult for goals of care discussion. Addendum Documented By: Ricky Garcia MD 01/05/241513 Addendum Signed By: <Electronically signed by Ricky Garcia MD> 01/05/241513 Date of Service: 01/05/2024 Subjective Subjective Narrative: Seen patient in the dialysis unit. Mentions that her symptom is better now. Her heart rate is better controlled. No other complaints. Exam Physical Exam Vital Signs: Temp Pulse Resp BP Pulse Ox O2 Del Method 97.4 F L 110 H 16 96/76 L 94 L Room Air 01/05/24 13:18 01/05/24 13:18 01/05/24 13:18 01/05/24 13:18 01/05/24 13:18 01/05/24 13:18 Narrative: General: Awake alert, no acute distress HEENT: head atraumatic, normocephalic, moist mucous membranes Neck: supple no masses, no lymphadenopathy CVS: regular rate and rhythm, no murmurs or gallops Respiratory: clear to auscultation bilaterally, no wheezing or crackles, symmetric expansion GI: soft, nondistended, nontender, positive bowel sounds with no organomegaly Extremity: moves all extremities, no restrictions of movements, no calf tenderness Neuro: AOx3, CN II-VII intact. Moves all extremities in all planes of motion. Skin: intact no rashes or lesions Objective Lab Results 01/05/24 03:38 01/05/24 03:38 Meds Allergies and Active Meds Allergies Penicillins Allergy (Severe, Verified 12/19/23 12:21) Swelling of Lip/Tongue/Throat, anaphylaxis tuberculin,PPD,multi-puncture Allergy (Intermediate, Verified 12/19/23 12:21) Redness of Skin atorvastatin (From Lipitor) Allergy (Unknown, Verified 12/19/23 12:21) Cramping of the Muscles, bodyaches Active Meds: Active Medications Generic Name Dose Route Start Last Admin Trade Name Freq PRN Reason Stop Dose Admin Acetaminophen 650 mg 01/05/24 05:06 Acetaminophen 325 Mg Tablet PO 01/04/25 05:05 Q6HR PRN Pain Scale 1 - 3 or fever Darbepoetin Herbie 25 mcg 01/08/24 10:00 Darbepoetin Herbie In Polysorbat 25 Mcg/Ml Vial IV-PUSH 01/07/25 09:59 We@1000 [facility] Protocol Diltiazem HCl 100 mg in 100 mls @ 10 mls/hr 01/05/24 03:45 01/05/24 11:14 Cardizem IV 01/04/25 03:44 5 mg/hr .Q10H [facility] 5 mls/hr Administration Protocol 10 MG/HR Sodium Chloride 1,000 mls @ 0 mls/hr 01/05/24 08:30 01/05/24 08:54 0.9% Sodium Chloride 1,000 Ml MISCELLANE 01/04/25 08:29 Infused .Q0M PRN Infusion Dialysis As Directed Albumin Human 25 gm in 100 mls @ 200 mls/hr 01/05/24 10:08 01/05/24 10:38 Albuminar-25 IV 01/05/24 23:59 Infused ONCE PRN Infusion Dialysis Midodrine 5 mg 01/05/24 08:30 01/05/24 09:40 Midodrine 5 Mg Tablet PO 01/04/25 08:29 5 mg PRN PRN Administration Dialysis Sodium Chloride 0 ml 01/05/24 03:50 01/05/24 04:05 Sodium Chloride 0.9 % 10 Ml Syringe IV-PUSH 01/04/25 03:49 10 ml PRN PRN Administration Flush Sodium Chloride 0 ml 01/05/24 08:30 01/05/24 08:54 Sodium Chloride 0.9 % 10 Ml Syringe IV-PUSH 01/04/25 08:29 10 ml PRN PRN Administration Flush A&P - Hospitalist Assessment/Plan (1) Atrial fibrillation with rapid ventricular response: (2) Missed dialysis: (3) Hyperkalemia: (4) Volume overload: Plan 73 year old woman with history of ESRD on HD, paroxysmal AF on warfarin, PAD, HTN, DLD who presented to the ED complaining of acute onset dyspnea starting just prior to presentation. Pt awoke from sleep this evening feeling acutely short of breath with palpitations. Last dialysis on December 19 and has been refusing treatment for not feeling well. In the ED found to be in A-fib with RVR. Patient started on diltiazem drip and hyperkalemia cocktail was given for elevated potassium. Patient had her dialysis done today. Atrial Fibrillation with Rapid Ventricular Response monitor on telemetry continue diltiazem gtt, titrate to ventricular rate <100 K >4 MG >2 Cardiology consulted-appreciate recommendation -Continue warfarin for target INR of 2-3. Pharmacy managing. Missed dialysis Hyperkalemia Volume overload - pt last got HD 12/19, has been refusing treatments - given kayexelate, insulin/D50, calcium gluconate in ED -Nephrology managing dialysis and electrolytes. monitor on telemetry check bmp daily to monitor K Chronic conditions -Hyperlipidemia on statin -Constipation-continue home bowel regimen -Hypotension-continue midodrine -GERD-continue omeprazole FULL CODE VTE prophylaxis- on warfarin Documented By: Ricky Garcia MD 01/05/24 1413 Signed By: <Electronically signed by Ricky Garcia MD> 01/05/24 1421 [facility] Work Phone: Progress note Author Rayna Hoang [facility] Note Date/Time January 06, 2024 11:17am [facility] [address] [place] [address] Nephrology Progress Note Signed Patient: Edita Costa MR# : [id number] : 1950 Acct:[id number] Age/Sex: 73 / F Adm Date: 4 Loc: Room: [address] [place] [address] Type: ADM IN Attending Dr: Coreen Jaffe MD Copies to: ~ Date of Service: 01/06/2024 Subjective Subjective Narrative: This is a 73-year-old female with medical history of ESRD, A-fib, GERD, HTN, DM,ESRD and HLD was presented to the emergency room for shortness of breath. She was found to have A-fib with RVR and was started on Cardizem drip after Cardizembolus. Missed multiple hemodialysis treatments as she was refusing to come to the dialysis. She was also found to have hyperkalemia and was treated medicallywith insulin , D 50 and Lokelma. Her chest x-ray showed finding for fluid overload. Nephrology was consulted for emergent hemodialysis due to the fluid overload and hyperkalemia. 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 Patient [facility] resides at the [facility] and has been refusing to go for dialysis. She met with the hospice on 12/30/2023 and decided to continue dialysis on the request of the son. Interval history: Patient had urgent hemodialysis yesterday with 1K bath, 3 L ultrafiltration as tolerated however blood pressure dropped during dialysis requiring midodrine. Patient still has A-fib on Cardizem drip. Heart rate did improve 80/min. Bloodpressure 101/58. Patient is awake and she denies shortness of breath. No nausea or vomiting. Potassium did improve down to 4 mmol/L. Pulse ox 95% in room air. Exam Physical Exam Vital Signs: Temp Pulse Resp BP Pulse Ox O2 Del Method 36.6 C 80 18 101/58 L 95 Room Air 01/06/24 09:18 01/06/24 10:28 01/06/24 09:18 01/06/24 10:28 01/06/24 09:18 01/06/24 09:18 Narrative: General: Awake alert, no acute distress HEENT: Mild pallor normocephalic, moist mucous membranes Neck: supple with no JVD CVS: Irregular rate and rhythm, no murmurs or gallops Respiratory: clear to auscultation bilaterally, no wheezing or crackles, symmetric expansion GI: soft, nondistended, nontender, positive bowel sounds with no organomegaly Extremity: moves all extremities, no restrictions of movements, no calf tenderness Neuro: AOx3,Moves all extremities in all planes of motion. Skin: intact no rashes or lesions Vascular access: Left arm AV fistula with good thrill Objective Intake and Output I&O: Intake & Output 01/03/24 01/04/24 01/05/24 01/06/24 23:59 23:59 23:59 23:59 Intake Total 940 / 940 100 / 100 Output Total 2003 0 / 0 Balance -1064 / -1064 100 / 100 Weight 76.3 kg 77.2 kg Meds and Allergies Meds: Active Medications Acetaminophen (Acetaminophen 325 Mg Tablet) 650 mg PO Q6HR PRN PRN Reason: Pain Scale 1 - 3 or fever Stop: 01/04/25 05:05 Atorvastatin Calcium (Atorvastatin 20 Mg Tablet) 10 mg PO DAILY [facility] Stop: 01/05/25 08:59 Darbepoetin Herbie (Darbepoetin Herbie In Polysorbat 25 Mcg/Ml Vial) 25 mcg IV-PUSHWe@1000 [facility]; Protocol Stop: 01/07/25 09:59 Docusate Sodium (Docusate 100 Mg Capsule) 100 mg PO DAILY [facility] Stop: 01/05/25 08:59 Diltiazem HCl (Cardizem) 100 mg in 100 mls @ 10 mls/hr IV .Q10H [facility]; Protocol Stop: 01/04/25 03:44 Last Admin: 01/06/24 09:48 Dose: Not Given Sodium Chloride (0.9% Sodium Chloride 1,000 Ml) 1,000 mls @ 0 mls/hr MISCELLANE.Q0M PRN PRN Reason: Dialysis Stop: 01/04/25 08:29 Last Infusion: 01/05/24 08:54 Dose: Infused Midodrine (Midodrine 5 Mg Tablet) 5 mg PO PRN PRN PRN Reason: Dialysis Stop: 01/04/25 08:29 Last Admin: 01/05/24 09:40 Dose: 5 mg Midodrine (Midodrine 5 Mg Tablet) 10 mg PO TID.7A.12P.5P [facility] Stop: 01/04/25 16:59 Last Admin: 01/06/24 06:05 Dose: 10 mg Pantoprazole Sodium (Pantoprazole 40 Mg Tablet.Dr) 40 mg PO DAILY [facility] Stop: 01/05/25 08:59 Polyethylene Glycol (Polyethylene Glycol 3350 17 Gm Powd.Pack) 17 gm PO DAILY PRN PRN Reason: constipation Stop: 01/04/25 14:16 Sodium Chloride (Sodium Chloride 0.9 % 10 Ml Syringe) 0 ml IV-PUSH PRN PRN PRN Reason: Flush Stop: 01/04/25 03:49 Last Admin: 01/05/24 04:05 Dose: 10 ml Sodium Chloride (Sodium Chloride 0.9 % 10 Ml Syringe) 0 ml IV-PUSH PRN PRN PRN Reason: Flush Stop: 01/04/25 08:29 Last Admin: 01/05/24 08:54 Dose: 10 ml Vitamin B Complex/Folic Acid (B Complex W-C No.20/Folic Acid 1 Mg Capsule) 1 mgPO DAILY [facility] Stop: 01/05/25 08:59 Warfarin Sodium (Warfarin - Pharmacy Dosing) 1 each MISCELLANE ONCE PRN; Protocol PRN Reason: ZZ.Pharmacy Consult Stop: 01/04/25 15:16 Allergies Penicillins Allergy (Severe, Verified 12/19/23 12:21) Swelling of Lip/Tongue/Throat, anaphylaxis tuberculin,PPD,multi-puncture Allergy (Intermediate, Verified 12/19/23 12:21) Redness of Skin atorvastatin (From Lipitor) Allergy (Unknown, Verified 12/19/23 12:21) Cramping of the Muscles, bodyaches Results - Nephrology Labs 01/06/24 05:17 01/06/24 05:17 Labs: 01/06/24 05:17 BUN 23 D Creatinine 6.14 H D Albumin 3.2 L Radiology Impressions Impressions - last 24 hours: Impressions Chest X-Ray 01/05/24 03:34 IMPRESSION: Findings suggest congestive heart failure with pulmonary edema and bilateral pleural effusions. This is worse when compared to the prior exam. Impression dictated by: Hitesh Pat M.D.01/05/2024 12:01 PM Dictation Location: [place] [address] Any impression(s) listed above is documentation that was entered by the reading physician into a diagnostic report(s) for Edita Everett Mauro. I have reviewed the report(s) and am incorporating any findings in the treatment plan of this patient where applicable. 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 She is supposed to have the dialysis on MWF schedule but has been missing her dialysis. (2) Hyperkalemia: Assessment/Problem Details: She has hyperkalemia due to the missing dialysis. (3) Atrial fibrillation with rapid ventricular response: Assessment/Problem Details: Patient presented with shortness of breath and was found to have A-fib with RVR. She is currently on Cardizem drip. She takes Coumadin for CVA prophylaxis. (4) Acute on chronic diastolic (congestive) heart failure: Assessment/Problem Details: Patient presented with shortness of breath and was found to have a CHF on chest x-ray due to the missing dialysis and A-fib with RVR. (5) Secondary hyperparathyroidism: Assessment/Problem Details: She has secondary hyperparathyroidism due to the ESRD currently receives IV Zemplar with dialysis. (6) Anemia in chronic kidney disease: Assessment/Problem Details: Her hemoglobin is within the goal. She received Aranesp with dialysis that is being adjusted to keep Hbg 10-12 gm/dl (7) Missed dialysis: Assessment/Problem Details: She has been missing her dialysis quite often and only goes once a week. Plan * Pt had urgent HD yesterday. Will give an additional HD today for 3.5 hrs, 2K and 3 L UF as tolerated * Pt on Warfarin with INR 2.0. No heparin will be given with dialysis * Will continue midodrine intradialytic hypotension. * Hold Aranesp 25 mcg once weekly with dialysis till Hbg < 11 gm/dl * Patient was educated about the importance of the dialysis. * Monitor CBC and renal function daily. Documented By: Rayna Hoang MD 01/06/24 1106 Signed By: <Electronically signed by MD Rayna Hoang> 01/06/24 1110 [facility] Work Phone: Progress note Author Coreen Jaffe [facility] Note Date/Time January 06, 2024 3:44pm [facility] [address] [place] [address] Hospitalist Progress Note Signed Patient: Edita Costa MR# : [id number] : 1950 Acct:[id number] Age/Sex: 73 / F Adm Date: 4 Loc: Room: [address] [place] [address] Type: ADM IN Attending Dr: Coreen Jaffe MD Copies to: ~ Date of Service: 01/06/2024 Subjective Subjective Narrative: Patient has been seen and examined today. She is feeling better today. Denies any dizziness any chest pain and shortness of breath. Denies any abdominal any back pain. Physical exam: General -awake, alert, oriented ?3, not in acute distress, weak appearing Cardiovascular -S1 with S2 Pulmonary - clear to auscultation bilaterally Gastrointestinal - abdomen is soft, nondistended, nontender, bowel sounds positive, there is no rigidity, no rebound Extremities -no edema Neurological -no focal neurological dysfunction noted Laboratory work up and Imaging studies reviewed Exam Physical Exam Vital Signs: Temp Pulse Resp BP Pulse Ox O2 Del Method 36.5 C 102 H 16 106/57 L 91 L Room Air 01/06/24 13:30 01/06/24 13:47 01/06/24 13:47 01/06/24 13:47 01/06/24 13:47 01/06/24 13:47 Objective Lab Results 01/06/24 05:17 01/06/24 05:17 Meds Allergies and Active Meds Allergies Penicillins Allergy (Severe, Verified 12/19/23 12:21) Swelling of Lip/Tongue/Throat, anaphylaxis tuberculin,PPD,multi-puncture Allergy (Intermediate, Verified 12/19/23 12:21) Redness of Skin atorvastatin (From Lipitor) Allergy (Unknown, Verified 12/19/23 12:21) Cramping of the Muscles, bodyaches Active Meds: Active Medications Generic Name Dose Route Start Last Admin Trade Name Freq PRN Reason Stop Dose Admin Acetaminophen 650 mg 01/05/24 05:06 Acetaminophen 325 Mg Tablet PO 01/04/25 05:05 Q6HR PRN Pain Scale 1 - 3 or fever Atorvastatin Calcium 10 mg 01/06/24 09:00 01/06/24 14:11 Atorvastatin 20 Mg Tablet PO 01/05/25 08:59 10 mg DAILY [facility] Administration Darbepoetin Herbie 25 mcg 01/08/24 10:00 Darbepoetin Herbie In Polysorbat 25 Mcg/Ml Vial IV-PUSH 01/07/25 09:59 We@1000 [facility] Protocol Diltiazem HCl 120 mg 01/06/24 14:00 01/06/24 14:15 Diltiazem Cd.24hr 120 Mg Cap.Er.24h PO 01/05/25 13:59 120 mg DAILY [facility] Administration Docusate Sodium 100 mg 01/06/24 09:00 01/06/24 14:10 Docusate 100 Mg Capsule PO 01/05/25 08:59 100 mg DAILY [facility] Administration Sodium Chloride 1,000 mls @ 0 mls/hr 01/05/24 08:30 01/06/24 11:28 0.9% Sodium Chloride 1,000 Ml MISCELLANE 01/04/25 08:29 Infused .Q0M PRN Infusion Dialysis As Directed Midodrine 5 mg 01/05/24 08:30 01/05/24 09:40 Midodrine 5 Mg Tablet PO 01/04/25 08:29 5 mg PRN PRN Administration Dialysis Midodrine 10 mg 01/05/24 17:00 01/06/24 11:25 Midodrine 5 Mg Tablet PO 01/04/25 16:59 10 mg TID.7A.12P.5P [facility] Administration Pantoprazole Sodium 40 mg 01/06/24 09:00 01/06/24 14:10 Pantoprazole 40 Mg Tablet.Dr PO 01/05/25 08:59 40 mg DAILY [facility] Administration Polyethylene Glycol 17 gm 01/05/24 14:17 Polyethylene Glycol 3350 17 Gm Powd.Pack PO 01/04/25 14:16 DAILY PRN constipation Sodium Chloride 0 ml 01/05/24 03:50 01/05/24 04:05 Sodium Chloride 0.9 % 10 Ml Syringe IV-PUSH 01/04/25 03:49 10 ml PRN PRN Administration Flush Sodium Chloride 0 ml 01/05/24 08:30 01/06/24 11:25 Sodium Chloride 0.9 % 10 Ml Syringe IV-PUSH 01/04/25 08:29 10 ml PRN PRN Administration Flush Sodium Chloride 0 ml 01/06/24 12:09 Sodium Chloride 0.9 % 10 Ml Syringe IV-PUSH 01/05/25 12:08 PRN PRN Flush Vitamin B Complex/Folic Acid 1 mg 01/06/24 09:00 01/06/24 14:10 B Complex W-C No.20/Folic Acid 1 Mg Capsule PO 01/05/25 08:59 1 mg DAILY [facility] Administration Warfarin Sodium 1 each 01/05/24 15:17 Warfarin - Pharmacy Dosing MISCELLANE 01/04/25 15:16 ONCE PRN ZZ.Pharmacy Consult Protocol Warfarin Sodium 0.5 mg 01/06/24 17:00 Warfarin 1 Mg Tablet PO 01/06/24 17:01 ONCE ONE A&P - Hospitalist Assessment/Plan (1) Atrial fibrillation with rapid ventricular response: (2) Missed dialysis: (3) Hyperkalemia: (4) Volume overload: Plan Atrial Fibrillation with Rapid Ventricular Response Improved, probably due to missed dialysis Missed dialysis Hyperkalemia Volume overload Improved Chronic conditions -Hyperlipidemia on statin -Constipation-continue home bowel regimen -Hypotension-continue midodrine -GERD-continue omeprazole FULL CODE VTE prophylaxis- on warfarin Documented By: Coreen Jaffe MD 01/06/24 1541 Signed By: <Electronically signed by Coreen Jaffe MD> 01/06/24 1542 [facility] Work Phone: Progress note [facility] Note Date/Time January 07, 2024 12:29pm [facility] [address] [place] [address] Nephrology Progress Note Signed Patient: Edita Costa MR# : [id number] : 1950 Acct:[id number] Age/Sex: 73 / F Adm Date: 4 Loc: 3T Room: [address] [place] [address] Type: ADM IN Attending Dr: Coreen Jaffe MD Copies to: ~ Date of Service: 01/07/2024 Subjective Subjective Narrative: This is a 73-year-old female with medical history of ESRD, A-fib, GERD, HTN, DM,ESRD and HLD was presented to the emergency room for shortness of breath. She was found to have A-fib with RVR and was started on Cardizem drip after Cardizembolus. Missed multiple hemodialysis treatments as she was refusing to come to the dialysis. She was also found to have hyperkalemia and was treated medicallywith insulin , D 50 and Lokelma. Her chest x-ray showed finding for fluid overload. Nephrology was consulted for emergent hemodialysis due to the fluid overload and hyperkalemia. 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 Patient currently resides at the correction and has been refusing to go for dialysis. She met with the hospice on 12/30/2023 and decided to continue dialysis on the request of the son. Interval history: Patient had 2 hemodialysis treatment [id number] on Saturday and Saturday with improvement of shortness of breath and normalization of potassium. A-fib is rate controlled on warfarin. Diltiazem was switched to oral 120 mg p.o. daily. Patient was seen by cardiology and she just underwent Lexiscan for myocardial ischemia assessment. Patient met with palliative care and she stated that she is not ready to quit dialysis at this point. Patient is awake and she denies shortness of breath. No nausea or vomiting. Potassium did improve down to 4 mmol/L. Pulse ox 95% in room air. Exam Physical Exam Vital Signs: Temp Pulse Resp BP Pulse Ox O2 Del Method 36.3 C L 81 20 141/84 H 96 Room Air 01/07/24 07:39 01/07/24 10:17 01/07/24 07:39 01/07/24 11:45 01/07/24 07:39 01/07/24 07:39 Narrative: General: Awake alert, no acute distress HEENT: Mild pallor normocephalic, moist mucous membranes Neck: supple with no JVD CVS: Irregular rate and rhythm, no murmurs or gallops Respiratory: clear to auscultation bilaterally, no wheezing or crackles, symmetric expansion GI: soft, nondistended, nontender, positive bowel sounds with no organomegaly Extremity: moves all extremities, no restrictions of movements, no calf tenderness Neuro: AOx3,Moves all extremities in all planes of motion. Skin: intact no rashes or lesions Vascular access: Left arm AV fistula with good thrill Objective Intake and Output I&O: Intake & Output 01/04/24 01/05/24 01/06/24 01/07/24 23:59 23:59 23:59 23:59 Intake Total 940 / 940 1044 / 1044 0 / 0 Output Total 2003 0 / 0 Balance -1064 / -1064 -956 / -956 0 / 0 Weight 76.3 kg 77.2 kg 73 kg Meds and Allergies Meds: Active Medications Acetaminophen (Acetaminophen 325 Mg Tablet) 650 mg PO Q6HR PRN PRN Reason: Pain Scale 1 - 3 or fever Stop: 01/04/25 05:05 Atorvastatin Calcium (Atorvastatin 20 Mg Tablet) 10 mg PO DAILY [facility] Stop: 01/05/25 08:59 Last Admin: 01/07/24 11:09 Dose: 10 mg Darbepoetin Herbie (Darbepoetin Herbie In Polysorbat 25 Mcg/Ml Vial) 25 mcg IV-PUSHWe@1000 [facility]; Protocol Stop: 01/07/25 09:59 Diltiazem HCl (Diltiazem Cd.24hr 120 Mg Cap.Er.24h) 120 mg PO DAILY [facility] Stop: 01/05/25 13:59 Last Admin: 01/07/24 11:09 Dose: 120 mg Docusate Sodium (Docusate 100 Mg Capsule) 100 mg PO DAILY [facility] Stop: 01/05/25 08:59 Last Admin: 01/07/24 11:09 Dose: 100 mg Sodium Chloride (0.9% Sodium Chloride 1,000 Ml) 1,000 mls @ 0 mls/hr MISCELLANE.Q0M PRN PRN Reason: Dialysis Stop: 01/04/25 08:29 Last Infusion: 01/06/24 11:28 Dose: Infused Midodrine (Midodrine 5 Mg Tablet) 5 mg PO PRN PRN PRN Reason: Dialysis Stop: 01/04/25 08:29 Last Admin: 01/05/24 09:40 Dose: 5 mg Midodrine (Midodrine 5 Mg Tablet) 10 mg PO TID.7A.12P.5P [facility] Stop: 01/04/25 16:59 Last Admin: 01/07/24 11:45 Dose: Not Given Pantoprazole Sodium (Pantoprazole 40 Mg Tablet.Dr) 40 mg PO DAILY [facility] Stop: 01/05/25 08:59 Last Admin: 01/07/24 11:09 Dose: 40 mg Polyethylene Glycol (Polyethylene Glycol 3350 17 Gm Powd.Pack) 17 gm PO DAILY PRN PRN Reason: constipation Stop: 01/04/25 14:16 Sodium Chloride (Sodium Chloride 0.9 % 10 Ml Syringe) 0 ml IV-PUSH PRN PRN PRN Reason: Flush Stop: 01/04/25 03:49 Last Admin: 01/05/24 04:05 Dose: 10 ml Sodium Chloride (Sodium Chloride 0.9 % 10 Ml Syringe) 0 ml IV-PUSH PRN PRN PRN Reason: Flush Stop: 01/04/25 08:29 Last Admin: 01/06/24 11:25 Dose: 10 ml Sodium Chloride (Sodium Chloride 0.9 % 10 Ml Syringe) 0 ml IV-PUSH PRN PRN PRN Reason: Flush Stop: 01/05/25 12:08 Last Admin: 01/07/24 10:15 Dose: 30 ml Vitamin B Complex/Folic Acid (B Complex W-C No.20/Folic Acid 1 Mg Capsule) 1 mgPO DAILY [facility] Stop: 01/05/25 08:59 Last Admin: 01/07/24 11:09 Dose: 1 mg Warfarin Sodium (Warfarin - Pharmacy Dosing) 1 each MISCELLANE ONCE PRN; Protocol PRN Reason: ZZ.Pharmacy Consult Stop: 01/04/25 15:16 Warfarin Sodium (Warfarin 1 Mg Tablet) 0.5 mg PO ONCE ONE Stop: 01/07/24 17:01 Allergies Penicillins Allergy (Severe, Verified 12/19/23 12:21) Swelling of Lip/Tongue/Throat, anaphylaxis tuberculin,PPD,multi-puncture Allergy (Intermediate, Verified 12/19/23 12:21) Redness of Skin atorvastatin (From Lipitor) Allergy (Unknown, Verified 12/19/23 12:21) Cramping of the Muscles, bodyaches Results - Nephrology Labs 01/07/24 07:31 01/07/24 07:31 Labs: 01/07/24 07:31 BUN 13 Creatinine 3.81 H D Albumin 3.1 L Radiology Impressions Impressions - last 24 hours: Any impression(s) listed above is documentation that was entered by the reading physician into a diagnostic report(s) for Edita Costa. I have reviewed the report(s) and am incorporating any findings in the treatment plan of this patient where applicable. 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 She is supposed to have the dialysis on MWF schedule but has been missing her dialysis. (2) Hyperkalemia: Assessment/Problem Details: She has hyperkalemia due to the missing dialysis. (3) Atrial fibrillation with rapid ventricular response: Assessment/Problem Details: Patient presented with shortness of breath and was found to have A-fib with RVR. She is currently on Cardizem drip. She takes Coumadin for CVA prophylaxis. (4) Acute on chronic diastolic (congestive) heart failure: Assessment/Problem Details: Patient presented with shortness of breath and was found to have a CHF on chest x-ray due to the missing dialysis and A-fib with RVR. (5) Secondary hyperparathyroidism: Assessment/Problem Details: She has secondary hyperparathyroidism due to the ESRD currently receives IV Zemplar with dialysis. (6) Anemia in chronic kidney disease: Assessment/Problem Details: Her hemoglobin is within the goal. She received Aranesp with dialysis that is being adjusted to keep Hbg 10-12 gm/dl (7) Missed dialysis: Assessment/Problem Details: She has been missing her dialysis quite often and only goes once a week. Plan * Patient had 2 hemodialysis treatment [id number]. Potassium is down to 3.4 mmol/l. Shortness of breath has improved. Patient decided to continue dialysis and she stated that will be compliant. She will be back on the on MWF schedule. Next hemodialysis will be tomorrow * Pt on Warfarin with INR 2.2. No heparin will be given with dialysis * Will continue midodrine intradialytic hypotension. * Aranesp was on hold as hemoglobin is elevated. Hemoglobin down to 10.9 g/dL. Will restart Aranesp 25 mcg weekly with next hemodialysis on 1 today. * Monitor CBC and renal function daily. Documented By: Rayna Hoang MD 01/07/24 1223 Signed By: <Electronically signed by MD Rayna Hoang> 01/07/24 1229 [facility] Work Phone: Progress note Author [facility] Note Date/Time January 07, 2024 2:26pm [facility] [address] [place] [id number] Palliative Care Progress Note Signed Patient: Edita Costa MR# : [id number] : 1950 Acct:[id number] Age/Sex: 73 / F Adm Date: 4 Loc: Room: [address] [place] [address] Type: ADM IN Attending Dr: Coreen Jaffe MD Copies to: ~ Date of Service: 01/07/2024 Subjective Subjective HPI: Ms Costa has a history of ESRD on HD since 2019, HTN, A fib, DM2, CHF, anemia of chronic disease, PAD who presented to the ER on 01/04 due to concerns of dyspnea. She was sent via EMS from her correction. Patient has been refusing dialysis over the last month and has only gone twice. In the ER, patient's labs showed creatinine of 11.46, BUN 58, Potassium 6. Given lokelma, calcium, glucose/insulin, and dextrose. Bicarb was 23. EKG showed changes. Cardiology was contacted and felt most likely related to non-ischemic causes. Did show afib with RVR. She was started on IV dilatiazem. Chest xray showed volume overload with opacity at the right base, concerning for pleural effusion.Nephrology was consulted and suggested admission for urgent dialysis. She was also noted to have wound on right great toe, concerning for possible gangrene. She was admitted for renal failure and a fib with RVR. She is scheduled for stress test tomorrow. Palliative care has been consulted to assist with goals of care. Patient is laying in bed, returning from dialysis. She denies shortness of breath, chest pain, pain, nausea or vomiting. Denies palpitations or heart skipping beats. Does feel tired. States dialysis is going okay. Patient grisel was brought to the hospital because she couldn't breath. Has fair appetite. She is very hard of hearing. patient is originally from [place] but moved to [place] at 5years old. She has two children. Unfortunately, her daughter within the last month. Her son Emile is HPOA. He feels patient's physical and mental health has declined since daughter passed. They did not have a good relationship and she was not able to repair their relationship. She is and her Hong 4years ago. She has 2 grandchildren, 3 great grandchildren. She alsohas 3 sisters and 1 brother still alive. She is very close with family. 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 She is somewhat spiritual but does not practice specific bridgett. She states she does not have many hobbies. Most of her time is spent watching TV. Patient's bed Emile is at bedside. He states mom has chosen not to go to dialysis over the last month because she is newly bedbound and its harder for her to go. Prior to recent illness in Oct, she was living independently with a friend. She had never missed dialysis before. It was difficult for her to go and she experienced severe fatigue after. She didn't like going, but was still willing to go. Since getting pneumonia and c diff in Oct, she was discharged toSNF for therapy. She was not progressing with therapy and has transitioned to LTC. Patient states things at the correction were going good. She needs helptransferring and is dependent on all ADLS, except feeding. Emile feels mom declines going to dialysis because its easy to say no now that she is bedbound. When asked what her barrier to dialysis is, she states the time. She does not like being there for so long. She also states it does make her feel poorly after. Emile ultimately wants her to be comfortable and respect her wishes. She has expressed wanting to stop dialysis to one of her sisters but has told the other she wants to continue going. Family and patient did meet with hospiceat the facility last week but Lori chose to continue dialysis and did not sign onto services. Reviewed patient's wishes. She states she wants to continue dialysis. Asked patient if she has ever thought about when she would want to discontinue dialysis completely. She states she has not. Reviewed that continuing dialysis requires her to go when scheduled. otherwise its ineffective and she would come to and from hospital frequently with worsening symptoms. She states she does not want recurrent hospitalizations. Reviewed transitioning to comfort based approach with goals of keeping patient comfortable and out of hospital. Patient not ready to discontinue dialysis completely. Patient's son Emile is agreeable but is worried that she will change her mind and continue refusing dialysis. Discussed resuscitation preferences. She confirms recent change of DNRCCA without intubation. 01/06 Patient sleeping in bed. wakes easily. No concerns or questions. Nursing states she is having a good day and appears in a good mood as well. Had her lexiscan this morning. Results pending. No family at bedside. Spoke with patient's son Emile on the phone. He did speak with patient's sister who updated that patient has been completely bedbound at facility. Only getting out of bed into wheelchair to go to dialysis. He is also concerned that mom is not having complete insight into her medical condition. She seems forgetful at times. His aunts also confirm she has been confused at times. After discussing with his family, they continue to support her wishes of continuing dialysis. Exam Physical Exam Vital Signs: Temp Pulse Resp BP Pulse Ox O2 Del Method 97.3 F L 81 20 141/84 H 96 Room Air 01/07/24 07:39 01/07/24 10:17 01/07/24 07:39 01/07/24 11:45 01/07/24 07:39 01/07/24 12:00 Const General: cooperative, comfortable, not in acute distress and frail appearing Nutritional Appearance: average body habitus Orientation: alert, awake and oriented x3 Limitations: mental status not altered HEENT Head: normal to inspection Mouth: oral mucosae normal Teeth and gingiva: abnormal dentition Eyes Alignment and Position: abnormal alignment Neck Neck: normal visual inspection Resp Effort & Inspection: normal respiratory effort and not tachypneic Auscultation: clear to auscultation bilaterally, no rhonchi and no wheezes Cardio Rate: not tachycardic Rhythm: abnormal rhythm Heart Sounds: S1 normal and S2 normal GI Palpation: soft, not firm and no guarding Skin Wounds: wounds noted (right great toe) Neuro General: patient alert, patient awake and patient oriented x3 Cranial Nerves: CN's II-XII intact bilaterally Cognition: normal cognition Speech: speech normal Gait: gait abnormal Motor: strength abnormal Extrem General: abnormal gait and no edema Psych Appearance: grossly normal Mood: congruent mood Affect: normal affect Speech and Movement: speech and movement normal Attitude: cooperative Thought Process: normal Thought Content: normal Insight: insight good Judgment: judgment good Objective Labs 01/07/24 07:31 01/07/24 07:31 Labs: Laboratory Results - last 24 hr 01/06/24 01/06/24 01/07/24 16:24 20:57 06:47 Corrected WBC Uncorrected WBC Count RBC Hgb Hct MCV MCH MCHC RDW Plt Count MPV Neut % (Auto) Lymph % (Auto) Burnet % (Auto) Eos % (Auto) Baso % (Auto) Nucleat RBC Rel Count Neut # (Auto) Lymph # (Auto) Burnet # (Auto) Eos # (Auto) Baso # (Auto) PT INR PHA Creatinine Clear Sodium Potassium Chloride Carbon Dioxide Anion Gap BUN Creatinine Est GFR (CKD-EPI) Glucose POC Glucose 77 124 86 Calcium Total Bilirubin AST ALT Alkaline Phosphatase Total Protein Albumin Globulin Albumin/Globulin Ratio 01/07/24 07:31 Corrected WBC 7.4 Uncorrected WBC Count 7.4 RBC 3.64 Hgb 10.9 L Hct 32.9 L MCV 90.4 MCH 29.9 MCHC 33.0 RDW 17.1 H Plt Count 246 MPV 7.0 Neut % (Auto) 64.5 Lymph % (Auto) 24.1 Burnet % (Auto) 9.1 Eos % (Auto) 1.8 Baso % (Auto) 0.5 Nucleat RBC Rel Count 0.2 Neut # (Auto) 4.7 Lymph # (Auto) 1.8 Burnet # (Auto) 0.7 Eos # (Auto) 0.1 Baso # (Auto) 0.0 PT 25.4 H INR 2.2 PHA Creatinine Clear 13.85 Sodium 137 Potassium 3.4 L Chloride 96 L Carbon Dioxide 30.2 Anion Gap 14.2 BUN 13 Creatinine 3.81 H D Est GFR (CKD-EPI) 12.098 Glucose 82 POC Glucose Calcium 8.9 Total Bilirubin 0.7 AST 16 ALT 10 Alkaline Phosphatase 83 Total Protein 5.9 L Albumin 3.1 L Globulin 2.8 Albumin/Globulin Ratio 1.1 Assessment/Plan Assessment/Plan (1) ESRD (end stage renal disease): Code(s): N18.6 - End stage renal disease (2) Counseling regarding advance care planning and goals of care: Code(s): Z71.89 - Other specified counseling Plan Goals remain aggressive. Would like to continue dialysis. Family is supportive. Updated patient's son Emile via phone. All questions and concerns addressed. Active listening and support provided. Will continue to follow. thank you for the consult. Documented By: Tania Waddell DO 01/07/24 1408 Signed By: <Electronically signed by Tania Waddell DO> 01/07/24 1429 [facility] Work Phone: Progress note Author [facility] Note Date/Time January 07, 2024 3:41pm [facility] [address] [place] [address] Cardiology Progress Note Signed Patient: Edita Cotsa MR# : [id number] : 1950 Acct:[id number] Age/Sex: 73 / F Adm Date: 4 Loc: Room: [address] [place] [address] Type: ADM IN Attending Dr: Coreen Jaffe MD Copies to: ~ Date of Service: 01/07/2024 Subjective Principal diagnosis: Permanent atrial fibrillation Interval history: Ms. Costa is a 73 year old female who is being seen at request of the hospitalist for atrial fibrillation. Patient was seen by myself September 2023 forsimilar presentation. She has permanent atrial fibrillation and has been treated with anticoagulation and rate control. In the past she had cardioversion and was on antiarrhythmic therapy and had followed previously withDr. Quintero. Lately she has been treated with rate control and anticoagulation. She has end-stage kidney disease and has been on dialysis but has missed at least 10 days of dialysis and presented with volume overload, pulmonary edema and atrial fibrillation with RVR. The patient also was found to be hyperkalemicwith potassium level of 6 mmol/L. Apparently her son talked her into resuming dialysis and she is willing to do so. She was given intravenous Cardizem which helped slow down the heart rate. She indicated she has been compliant taking her medications though. Her last echocardiogram September 2023 revealed ejection fraction 50-55% with dilated left atrium. She has no significant valvular heartdisease and has had no previous myocardial ischemia evaluation back with [facility]. She does have significant PAD and has been followed with vascular surgery with previous interventions. She does have significant orthostatic hypotension requiring treatment with midodrine. She is on warfarin and Cardizem for atrial fibrillation. Currently the heart rate is better controlled, INR is therapeutic. Potassium has normalized. The patient will be switched from IV Cardizem to oral Cardizem at the dose she was on at home 120 mg daily. Since the patient is in the hospital we can do what we have not done previously which is to assess for myocardial ischemia given her vascular disease. A Lexiscan MPIis recommended to be done and probably can do it as early as tomorrow. Cardiology follow-up 01/07/2024: Patient is resting comfortably. She underwent Lexiscan Cardiolite stress test which was normal. Ejection fraction is normal. The patient has returned to baseline after dialysis with normal vital signs. She remains in atrial fibrillation with controlled rate. The patient will be discharged home today. Post medical therapy will be left unchanged Exam Physical Exam Vital Signs: Temp Pulse Resp BP Pulse Ox O2 Del Method 97.5 F L 86 18 142/80 H 91 L Room Air 01/07/24 15:05 01/07/24 15:05 01/07/24 15:05 01/07/24 15:05 01/07/24 15:05 01/07/24 15:05 Const General: cooperative, comfortable and no acute distress Nutritional Appearance: overweight Orientation: alert, awake and oriented x3 HEENT Head: normocephalic and atraumatic Ears: hearing grossly normal bilaterally Nose: external nose normal Face and sinus: normal facial exam Eyes Conjunctivae: conjunctivae normal Pupils: PERRL Neck Neck: trachea midline and supple Neck mass: No Thyroid: thyroid normal Carotids: normal carotid upstroke Resp Effort & Inspection: normal respiratory effort Auscultation: clear to auscultation bilaterally Cardio Jugular venous pressure: no JVD Palpation: normal PMI Rate: regular rate Rhythm: abnormal rhythm irregularly irregular Heart Sounds: S1 normal and S2 normal GI Inspection: normal to inspection Palpation: soft and no hepatosplenomegaly Auscultation: normal bowel sounds Objective Labs 01/07/24 07:31 01/07/24 07:31 Labs: Laboratory Results - last 24 hr 01/06/24 01/06/24 01/07/24 16:24 20:57 06:47 Corrected WBC Uncorrected WBC Count RBC Hgb Hct MCV MCH MCHC RDW Plt Count MPV Neut % (Auto) Lymph % (Auto) Burnet % (Auto) Eos % (Auto) Baso % (Auto) Nucleat RBC Rel Count Neut # (Auto) Lymph # (Auto) Burnet # (Auto) Eos # (Auto) Baso # (Auto) PT INR PHA Creatinine Clear Sodium Potassium Chloride Carbon Dioxide Anion Gap BUN Creatinine Est GFR (CKD-EPI) Glucose POC Glucose 77 124 86 Calcium Total Bilirubin AST ALT Alkaline Phosphatase Total Protein Albumin Globulin Albumin/Globulin Ratio 01/07/24 07:31 Corrected WBC 7.4 Uncorrected WBC Count 7.4 RBC 3.64 Hgb 10.9 L Hct 32.9 L MCV 90.4 MCH 29.9 MCHC 33.0 RDW 17.1 H Plt Count 246 MPV 7.0 Neut % (Auto) 64.5 Lymph % (Auto) 24.1 Burnet % (Auto) 9.1 Eos % (Auto) 1.8 Baso % (Auto) 0.5 Nucleat RBC Rel Count 0.2 Neut # (Auto) 4.7 Lymph # (Auto) 1.8 Burnet # (Auto) 0.7 Eos # (Auto) 0.1 Baso # (Auto) 0.0 PT 25.4 H INR 2.2 PHA Creatinine Clear 13.85 Sodium 137 Potassium 3.4 L Chloride 96 L Carbon Dioxide 30.2 Anion Gap 14.2 BUN 13 Creatinine 3.81 H D Est GFR (CKD-EPI) 12.098 Glucose 82 POC Glucose Calcium 8.9 Total Bilirubin 0.7 AST 16 ALT 10 Alkaline Phosphatase 83 Total Protein 5.9 L Albumin 3.1 L Globulin 2.8 Albumin/Globulin Ratio 1.1 A&P - Cardiology (1) Atrial fibrillation with rapid ventricular response: Assessment/Problem Details: Aggravated by missing dialysis and volume overload, improved back to baseline Plan: Continue warfarin, oral Cardizem, discharged home Code(s): I48.91 - Unspecified atrial fibrillation (2) Volume overload: Assessment/Problem Details: Responded to dialysis Plan: Continue dialysis Code(s): E87.70 - Fluid overload, unspecified (3) Hyperkalemia: Assessment/Problem Details: Caused by missing dialysis, resolved Plan: Continue dialysis Code(s): E87.5 - Hyperkalemia (4) ESRD (end stage renal disease): Plan: Continue dialysis monitored by nephrology Code(s): N18.6 - End stage renal disease (5) Orthostatic hypotension: Assessment/Problem Details: Presently stable Plan: Continue midodrine Code(s): I95.1 - Orthostatic hypotension (6) Peripheral arterial disease: Assessment/Problem Details: No active tissue loss, patient had nuclear stress test today to ensure no CAD and the test came back normal Plan: Continue current Code(s): I73.9 - Peripheral vascular disease, unspecified Documented By: Salinas Ortega MD, SHAISTA 4 1535 Signed By: <Electronically signed by MD SHAISTA Ortega> 01/07/24 1541 [facility] Work Phone: Reason for referral (narrative)* Consultation (Routine) - Authorized Specialty Diagnoses / Procedures Referred By Contbradley t Referred To Contact Cardiology Diagnoses Persistent atrial fibrillation (CMS/HCC) Procedures Follow Up In Cardiology Ozzie Quintero MD [address] [place] [address], [address] [address] Ozzie Quintero MD [address] [place] [address] 2, [address] [address] Referral ID Status Reason Start Date Expiration Date V isits Requested Visits Authorized [id number] Authorized 04/30/2023 04/29/2024 1 1 [facility] Work Phone: Summary Purpose Family History Unknown [...] ulcer Unknown natural son Diabetes mellitus Unknown brother Hypertension Unknown Diabetes mellitus Unknown father Heart disease Unknown Hypertension Unknown Unknown Not Specified Unknown Gastric ulcer Unknown sister Malignant neoplasm Unknown Relationship Condition Age at Onset Recorded Date/T avery daughter Drug abuse Unknown sister Malignant neoplasm of thyroid gland Unkno wn sister Back problem Unknown father Diabetes mellitus Unknown Myocardial infarction Unknown brother Diabetes mellitus Unknown mother Gastric ulcer Unknown son Diabetes mellitus Unknown brother Hypertension Unknown Diabetes mellitus Unknown father Heart disease Unknown Hypertension Unknown Unknown mother Unknown Gastric ulcer Unknown sister Malignant neoplasm Unknown Relationship Condition Age at Onset Recorded Date/T avery daughter Drug abuse Unknown sister Malignant neoplasm of thyroid gland Unkno wn Diabetes mellitus Unknown sister Back problem Unknown father Diabetes mellitus Unknown Myocardial infarction Unknown brother Diabetes mellitus Unknown mother Gastric ulcer Unknown son Diabetes mellitus Unknown Hypertension Unknown brother Hypertension Unknown Heart disease Unknown Unknown mother Unknown Gastric ulcer Unknown sister Malignant neoplasm Unknown Advance Directives Advance Directive Response Recorded Date/ Time Advance Directives Yes October 10:33am Advance Directive Response Recorded Date/ Time Advance Directives Yes October 9:33am Chief Complaint EDITA COSTA is being seen for a 6 month follow-up of.EDITA COSTA is being seen for a 6 month follow-up of.Order sent to [facility] for testing due SATNAM. was due in DecemberGEREINIER COSTA is being seen for a 3 month follow- up of atrial fibrillation and follow up dcc.EDITA COSTA is being seen for a 3 month follow-up of atrial fibrillation and follow up dcc.EDITA COSTA is being seen for a 3 month follow-up of atrial fibrillation and follow up dcc. EDITA COSTA is being seen for a 3 month follow-up of atrial fibrillation and follow up dcc.EDITA COSTA is being seen for a 3 month follow-up of atrial fibrillation and follow up dcc.EDITA COSTA is being seen for a 3 month follow-up of Holter monitor results.EDITA COSTA is being seen for a 3 month follow-up of Holter monitor results.EDITA COSTA is being seen for a 6 month follow-up of.EDITA COSTA is being seen for a 6 month [...] Complaint t82.898a Chief Complaint t82.898a esr I70.213 Chief Complaint Having Arterial Spas ms; Gfs 11:30a t82.898a esr 4 Month Follow Up; Gfs Left Leg W Karissa's I70.213 ESRD N18.6 ELEVATED LISANDRA PRESS AND VASC ALERTS; GFS SCAN 9:30 Chief Complaint Having Arterial Spas ms; Gfs 11:30a t82.898a esr 4 Month Follow Up; Gfs Left Leg W Karissa's I70.213 ESRD N18.6 ELEVATED LISANDRA PRESS AND VASC ALERTS; GFS SCAN 9:30 Reason for Visit AVF (arteriovenous f istula) Dialysis AV fistula malfunction ESRD (end stage renal disease) Chief Complaint N18.6 ELEVATED LISANDRA PRESS AND VASC ALERTS; GFS SCAN 9:30 ESRD Reason for Visit AVF (arteriovenous f istula) Dialysis AV fistula malfunction ESRD (end stage renal disease) Chief Complaint t82.898a esr Chief Complaint ESRD ESRD 6 MONTH FOLLOW UP; GFS W KARISSA'S LEFT LEG 10:30A I70.212 Chief Complaint ESRD ESRD 6 MONTH FOLLOW UP; GFS W KARISSA'S LEFT LEG 10:30A I70.212 Reason for Visit Peripheral arterial disease Chief Complaint 6 MONTH FOLLOW UP; G FS W KARISSA'S LEFT LEG 10:30A I70.212 Diarrhea Reason for Visit Peripheral arterial disease Chief Complaint 6 MONTH FOLLOW UP; G FS W KARISSA'S LEFT LEG 10:30A I70.212 Diarrhea Reason for Visit Peripheral arterial disease Acute GI bleeding Acute hyperkalemia Acute hyponatremia Atrial fibrillation with RVR Diarrhea Elevated troponin ESRD (end stage renal disease) GERD (gastroesophageal reflux disease) Hyponatremia Leukocytosis Supratherapeutic INR Chief Complaint 6 MONTH FOLLOW UP; G FS W KARISSA'S LEFT LEG 10:30A I70.212 Diarrhea Diarrhea Diarrhea Diarrhea Reason for Visit Peripheral arterial disease Acute diarrhea Acute GI bleeding Acute hyperkalemia Acute hyponatremia Atrial fibrillation with RVR Atrial fibrillation, persistent C. difficile colitis Diarrhea Elevated troponin ESRD (end stage renal disease) GERD (gastroesophageal reflux disease) Hyperkalemia Hyponatremia Leukocytosis Peripheral arterial disease Supratherapeutic INR Chief Complaint 6 MONTH FOLLOW UP; G FS W KARISSA'S LEFT LEG 10:30A I70.212 Diarrhea Diarrhea Diarrhea Diarrhea BLEEDING AROUND NEEDLE SITES; GFS 11:30A Chief Complaint 6 MONTH FOLLOW UP; G FS W KARISSA'S LEFT LEG 10:30A I70.212 Diarrhea Diarrhea Diarrhea Diarrhea BLEEDING AROUND NEEDLE SITES; GFS 11:30A Reason for Visit Dialysis AV fistula malfunction Chief Complaint Admit Date Diarrhea October 24, 2023 11 :16pm Diarrhea October 25, 2023 8: 26am Diarrhea October 25, 2023 9: 14am Diarrhea October 26, 2023 2: 48pm BLEEDING AROUND NEEDLE SITES; GFS 11:30A December 12, 2023 11:22am ESRD December 19, 2023 1 1:52am ESRD December 19, 2023 1 :57pm sob January 05, 2024 4:42am Reason for Visit Admit Date Acute diarrhea October 24, 2023 11 :16pm Acute GI bleeding October 24, 2023 11 :16pm Acute hyperkalemia October 24, 2023 11 :16pm Acute hyponatremia October 24, 2023 11 :16pm Atrial fibrillation with RVR September 11:16pm Atrial fibrillation, persistent September 262023 11:16pm C. difficile colitis October 24, 2023 1 1:16pm Diarrhea October 24, 2023 11 :16pm Elevated troponin October 24, 2023 11 :16pm ESRD (end stage renal disease) October 232023 11:16pm GERD (gastroesophageal reflux disease) A ugust 2023 11:16pm Hyperkalemia October 24, 2023 11 :16pm Hyponatremia October 24, 2023 11 :16pm Leukocytosis October 24, 2023 11 :16pm Peripheral arterial disease October 24, 2023 11:16pm Supratherapeutic INR October 24, 2023 1 1:16pm Dialysis AV fistula malfunction December 12, 2023 11:22am Atrial fibrillation with rapid ventricul ar response January 05, 2024 4:42am Hyperkalemia January 05, 2024 4:42am Ischemic ulcer of toe of right foot Jesus cramer 2023 4:42am Missed dialysis January 05, 2024 4:42am Volume overload January 05, 2024 4:42am Chief Complaint Admit Date Diarrhea October 24, 2023 11 :16pm Diarrhea October 25, 2023 8: 26am Diarrhea October 25, 2023 9: 14am Diarrhea October 26, 2023 2: 48pm BLEEDING AROUND NEEDLE SITES; GFS 11:30A December 12, 2023 11:22am ESRD December 19, 2023 1 1:52am ESRD December 19, 2023 1 :57pm sob January 05, 2024 4:42am sob January 05, 2024 9:37am sob January 06, 2024 2:22pm Reason for Visit Admit Date ESRD (end stage renal disease) October 232023 11:16pm Acute diarrhea October 24, 2023 11 :16pm Acute GI bleeding October 24, 2023 11 :16pm Acute hyperkalemia October 24, 2023 11 :16pm Acute hyponatremia October 24, 2023 11 :16pm Atrial fibrillation with RVR September 11:16pm Atrial fibrillation, persistent September 262023 11:16pm C. difficile colitis October 24, 2023 1 1:16pm Diarrhea October 24, 2023 11 :16pm Elevated troponin October 24, 2023 11 :16pm GERD (gastroesophageal reflux disease) A ugust 2023 11:16pm Hyperkalemia October 24, 2023 11 :16pm Hyponatremia October 24, 2023 11 :16pm Leukocytosis October 24, 2023 11 :16pm Peripheral arterial disease October 24, 2023 11:16pm Supratherapeutic INR October 24, 2023 1 1:16pm Dialysis AV fistula malfunction December 12, 2023 11:22am Acute on chronic diastolic (congestive) heart failure January 05, 2024 4:42am Anemia in chronic kidney disease Robe gordon 2023 4:42am Atrial fibrillation with rapid ventricul ar response January 05, 2024 4:42am Counseling regarding advance care planning and goals of care January 05, 2024 4:42am Hyperkalemia January 05, 2024 4:42am Ischemic ulcer of toe of right foot Saragrisel bela 2023 4:42am Missed dialysis January 05, 2024 4:42am Orthostatic hypotension January 04, 024 4:42am Peripheral arterial disease December 4:42am Secondary hyperparathyroidism December 262023 4:42am Volume overload January 05, 2024 4:42am ESRD (end stage renal disease) January 05, 2024 4:42am Additional Source Comments INFORMATION SOURCE (unrecogn ized section and content) DATE CREATED AUTHOR 03/16/2020 [facility] DATE CREATED AUTHOR AUTHOR'S ORGANIZ ATION 04/06/2021 [facility] DATE CREATED AUTHOR AUTHOR'S ORGANIZ ATION 08/05/2022 [facility] DATE CREATED AUTHOR AUTHOR'S ORGANIZ ATION 08/20/2022 [facility] DATE CREATED AUTHOR AUTHOR'S ORGANIZ ATION 08/20/2022 [facility] DATE CREATED AUTHOR AUTHOR'S ORGANIZ ATION 06/19/2023 [facility] DATE CREATED AUTHOR AUTHOR'S ORGANIZ ATION 09/15/2023 [facility] EPIC DATE CREATED AUTHOR AUTHOR'S ORGANIZ ATION 01/09/2024 [facility] Reason for Visit (unrecogniz ed section and content) Reason Comments Follow-up 9 months Care Teams (unrecognized sec tion and content) Team Status: Active Member Role Status Dates Curtis Byrd II MD Primary Care Provider Active Team Status: Active Member Role Status Dates Curtis Byrd II MD Primary Care Provider Active Start: August 19, 2023 Bereket Xie MD Attending Provider Active Star t: August 19, 2023 Team Status: Active Member Role Status Dates Curtis Byrd II MD Primary Care Provider Active Start: September 18, 2023 Rayna Hoang MD Attending Provider Active Star t: September 18, 2023 Team Status: Inactive Member Role Status Dates Curtis Byrd II MD Primary Care Provider Active Start: September 26, 2023 End: September 26, 2023 Dillon Wilson MD Attending Provider Active Start: September 26, 2023 End: September 26, 2023 Team Status: Inactive Member Role Status Kitty Byrd II MD Primary Care Provider Active Start: October 24, 2023 End: October 24, 2023 Tania Aguilar MD Emergency Provider Active Start: October 24, 2023 End: October 24, 2023 Team Status: Inactive Member Role Status Kitty Bryd II MD Primary Care Provider Active Start: March 14, 2023 End: March 14, 2023 Dillon Wilson MD Attending Provider Active Start: March 14, 2023 End: March 14, 2023 Team Status: Active Member Role Status Kitty Byrd II MD Primary Care Provider Active Start: March 19, 2023 Dillon Wilson MD Attending Prov ider, Other Provider Active Start: March 19, 2023 Team Status: Active Member Role Status Kitty Byrd II MD Primary Care Provider Active Start: April 20, 2023 Bereket Xie MD Attending Provider Active Star t: April 20, 2023 Team Status: Active Member Role Status Kitty Byrd II MD Primary Care Provider Active Start: May 19, 2023 Rayna Hoang MD Attending Provider Active Star t: May 19, 2023 Team Status: Inactive Member Role Status Kitty Byrd II MD Primary Care Provider Active Start: June 06, 2023 End: June 06, 2023 Dillon Wilson MD Attending Provider Active Start: June 06, 2023 End: June 06, 2023 Team Status: Inactive Member Role Status Kitty Byrd II MD Primary Care Provider Active Start: July 04, 2023 End: July 04, 2023 Sefernio Tariq MD Attending Provider Active S tart: July 04, 2023 End: July 04, 2023 Team Status: Inactive Member Role Status Kitty Byrd II MD Primary Care Provider Active Dillon Wilson MD Attending Provider Active Team Status: Active Member Role Status Kitty Byrd II MD Primary Care Provider Active PAMELA Rees Attending Provider Active Team Status: Inactive Member Role Status Kitty Byrd II MD Primary Care Provider Active Dillon Wilson MD Admit Provider, Attending Pr ovider Active Team Status: Inactive Member Role Status Kitty Byrd II MD Primary Care Provider Active PAMELA Rees Attending Provider Active Team Status: Inactive Member Role Status Dates Curtis Byrd II MD Primary Care Provider Active Start: March 28, 2023 End: March 28, 2023 Dillon Wilson MD Attending Provider Active Start: March 28, 2023 End: March 28, 2023 Gravel Inspector Relationship Specialty Start Date End Date Curtis Byrd MD [address] [facility] [address] [place] [address] PCP - General 08/20/22 Team Status: Inactive Member Role Status Dates Dillon Wilson MD Attending Provider Active Start: March 14, 2023 End: March 14, 2023 Team Status: Inactive Member Role Status Dates Dillon Wilson MD Attending Provider Active Start: March 28, 2023 End: March 28, 2023 Team Status: Active Member Role Status Dates Curtis Byrd II MD Primary Care Provider Active Start: April 04, 2023 Dillon Wilson MD Attending Prov ider, Other Provider Active Start: April 04, 2023 Team Status: Active Member Role Status Dates Curtis Byrd II MD Primary Care Provider Active Start: June 06, 2023 Dillon Wilson MD Attending Provider Active Start: June 06, 2023 Team Status: Active Member Role Status Dates Curtis Byrd II MD Primary Care Provider Active Start: July 04, 2023 Seferino Tariq MD Attending Provider, Other Provide r Active Start: July 04, 2023 Team Status: Active Member Role Status Dates Curtis Byrd II MD Primary Care Provider Active Start: July 22, 2023 Rayna Hoang MD Attending Provider Active Star t: July 22, 2023 Team Status: Active Member Role Status Dates Curtis Byrd II MD Primary Care Provider Active Start: September 26, 2023 Dillon Wilson MD Attending Provider Active Start: September 26, 2023 Team Status: Active Member Role Status Dates Curtis Byrd II MD Primary Care Provider Active Start: October 24, 2023 Tania Aguilar MD Emergency Provider Active Start: October 24, 2023 Chan Byers , Admit Provider, Atte nding Provider Active Start: October 24, 2023 Team Status: Inactive Member Role Status Dates Curtis Byrd II MD Primary Care Provider Active Start: October 24, 2023 End: October 30, 2023 Tania Aguilar MD Emergency Provider Active Start: October 24, 2023 End: October 30, 2023 Chan Byers DO Admit Provider Active Start: October 24, 2023 End: October 30, 2023 Mario Monsalve MD Other Provider Active Start : October 24, 2023 End: October 30, 2023 Pelon Nieto APRN Other Provider Active St art: October 24, 2023 End: October 30, 2023 Migel Ny MD Other Provider Active Start: Sep End: October 30, 2023 Jennifer Petersen Ly , DO Other Provider Active Start: October 24, 2023 End: October 30, 2023 Rayna Hoang MD Other Provider Active Start: A ugust 2023 End: October 30, 2023 BERTHA MauricioC Other Provider Active Start: October 24, 2023 End: October 30, 2023 Danika Lin MD Other Provider Active Start: Au jewels 2023 End: October 30, 2023 Bereket Xie MD Other Provider Active Start: A ugust 2023 End: October 30, 2023 Vinh Scott MD Attending Provider Active Start: October 24, 2023 End: October 30, 2023 Team Status: Active Member Role Status Dates Curtis Byrd II MD Primary Care Provider Active Start: October 25, 2023 Tania Aguilar MD Emergency Provider Active Start: October 25, 2023 Chan Byesr DO Admit Provider Active Start: October 25, 2023 Coreen Jaffe MD Other Provider Active Start : October 25, 2023 Mario Monsalve MD Other Provider Active Start : October 25, 2023 Pelon Nieto APRN Other Provider Active St art: October 25, 2023 Migel Ny MD Other Provider Active Start: Sep Jennifer L Ly , DO Other Provider Active Start: October 25, 2023 Rayna Hoang MD Other Provider Active Start: A ugust 2023 Amy Pena NP-C Other Provider Active Start: October 25, 2023 Danika Lin MD Other Provider Active Start: jewels 2023 Bereket Xie MD Attending Provider, Other Provider Active Start: October 25, 2023 Team Status: Active Member Role Status Dates Curtis Byrd II MD Primary Care Provider Active Start: October 25, 2023 Tania Aguilar MD Emergency Provider Active Start: October 25, 2023 Chan Byers DO Admit Provider Active Start: October 25, 2023 Coreen Jaffe MD Other Provider Active Start : October 25, 2023 Mario Monsalve MD Other Provider Active Start : October 25, 2023 Pelon Nieto APRN Other Provider Active St art: October 25, 2023 Migel Ny MD Attending Provider, Other Provider Active Start: October 25, 2023 Jennifer Christianson DO Other Provider Active Start: October 25, 2023 Rayna Hoang MD Other Provider Active Start: A ugust 2023 PAMELA Mauricio Other Provider Active Start: October 25, 2023 Danika Lin MD Other Provider Active Start: 2023 Bereket Xie MD Other Provider Active Start: A ugust 2023 Team Status: Active Member Role Status Dates Curtis Byrd II MD Primary Care Provider Active Start: October 26, 2023 Tania Aguilar MD Emergency Provider Active Start: October 26, 2023 Chan Byers DO Admit Provider Active Start: October 26, 2023 Mario Monsalve MD Other Provider Active Start : October 26, 2023 Pelon Nieto APRN Other Provider Active St art: October 26, 2023 Migel Ny MD Other Provider Active Start: Sep Jennifer Christianson DO Other Provider Active Start: October 26, 2023 Rayna Hoang MD Other Provider Active Start: A ugust 2023 PAMELA Mauricio Other Provider Active Start: October 26, 2023 Danika Lin MD Other Provider Active Start: Au jewels 2023 Bereket Xie MD Other Provider Active Start: A ugust 2023 Renate De Luna RN Other Provider Active Star t: October 26, 2023 Minerva Campbell DO Other Provider Active Start : October 26, 2023 Salinas Ortega MD Other Provider Active Start: October 26, 2023 Ozzie Quintero MD Other Provider Active Start: October 26, 2023 Leatha Ureña MD Other Provider Active St art: October 26, 2023 Pablito Flores MD Other Provider Active Start: October 26, 2023 Shannon Hickey APRN Other Provider Active Start : October 26, 2023 Fern Zamora MD Other Provider Active Start: A [facility] 2023 Shawn Estrada MD Other Provider Active Start: October 26, 2023 Conchita Aguilar MD Other Provider Active Start: A ust 2023 Milagro Rose , STUDIO ENGINEER- Other Provider Active Sta rt: October 26, 2023 Vinh Scott MD Other Provider Active Sta rt: October 26, 2023 Diogo Badillo MD Attending Provider Activ e Start: October 26, 2023 Team Status: Active Member Role Status Dates Curtis Byrd II MD Primary Care Provider Active Start: October 21, 2023 Danika Lin MD Attending Provider Active Start : October 21, 2023 Team Status: Active Member Role Status Dates Curtis Byrd II MD Primary Care Provider Active Start: November 20, 2023 Danika Lin MD Attending Provider Active Start : November 20, 2023 Team Status: Inactive Member Role Status Dates Curtis Byrd II MD Primary Care Provider Active Start: December 12, 2023 End: December 12, 2023 Dillon Wilson MD Attending Provider Active Start: December 12, 2023 End: December 12, 2023 Team Status: Inactive Member Role Status Dates Curtis Byrd II MD Primary Care Provider Active Start: December 19, 2023 End: December 19, 2023 Dillon Wilson MD Attending Provider Active Start: December 19, 2023 End: December 19, 2023 Team Status: Active Member Role Status Dates Curtis Byrd II MD Primary Care Provider Active Start: December 19, 2023 Dillon Wilson MD Attending Prov ider, Other Provider Active Start: December 19, 2023 Team Status: Active Member Role Status Dates Eduardo Franco DO RES Active Sta rt: January 05, 2024 Curtis Byrd II MD Primary Care Provider Active Start: January 05, 2024 Tyson Conn Jr, MD Emergency Provider Active Start: January 05, 2024 Curtis Lino MD Admit Provider, Attending Provider Active Start: January 05, 2024 Team Status: Inactive Member Role Status Dates Eduardo Franco DO RES Active Sta rt: January 05, 2024 End: January 07, 2024 Curtis Byrd II MD Primary Care Provider Active Start: January 05, 2024 End: January 07, 2024 Tyson Conn Jr, MD Emergency Provider Active Start: January 05, 2024 End: January 07, 2024 Curtis Lino MD Admit Provider Active S tart: January 05, 2024 End: January 07, 2024 Danika Lin MD Other Provider Active Start: No vember 2023 End: January 07, 2024 Kuldip Traore DO Other Provider Active Start: January 05, 2024 End: January 07, 2024 Devi Benites APRN Other Provider Active Start: January 05, 2024 End: January 07, 2024 Tania Waddell DO Other Provider Active Sta rt: January 05, 2024 End: January 07, 2024 Moises Rose DO FELLOW Other Provider Active Start: January 05, 2024 End: January 07, 2024 Bud Guerrero DO FELLOW Other Provider Active S tart: January 05, 2024 End: January 07, 2024 Coreen Jaffe MD Attending Provider Active S tart: January 05, 2024 End: January 07, 2024 Team Status: Active Member Role Status Dates Eduardo Franco DO RES Active Sta rt: January 05, 2024 Curtis Byrd II MD Primary Care Provider Active Start: January 05, 2024 Tyson Conn Jr, MD Emergency Provider Active Start: January 05, 2024 Curtis Lino MD Admit Provider Active S tart: January 05, 2024 Ricky Garcia MD Other Provider Active Start: No vember 2023 Danika Lin MD Attending Provider, Other Provider Active Start: January 05, 2024 Team Status: Active Member Role Status Dates Eduardo Franco DO RES Active Sta rt: January 06, 2024 Curtis Byrd II MD Primary Care Provider Active Start: January 06, 2024 Tyson Conn Jr, MD Emergency Provider Active Start: January 06, 2024 Curtis Lino MD Admit Provider Active S tart: January 06, 2024 Danika Lin MD Other Provider Active Start: No [id number] Salinas Ortega MD Other Provider Active Start: January 06, 2024 Kuldip Traore DO Other Provider Active Start: January 06, 2024 Devi Benites , PROVISIONING ANALYST Other Provider Active Start: January 06, 2024 Tania Waddell DO Attending Provide r, Other Provider Active Start: January 06, 2024 Moises Rose DO FELLOW Other Provider Active Start: December Bud Guerrero DO FELLOW Other Provider Active S tart: January 06, 2024 Coreen Jaffe MD Other Provider Active Start : January 06, 2024 Goals (unrecognized section and content) Goals may [...] BE BASED ON THE PRIMARY CLINICAL RECORDS. [employer] provides no warranty or guarantee of the accuracy or completeness of information in this document.
[2024-01-11 13:55] LABS: Potassium 3.6 mmol/L (3.5-5.1)
== END 2024-01-11 13:41 | disposition home or self-care (01) ==
LOC: LAB 13:40
PROVIDERS: PCP Internal Medicine; Visit Provider Family Medicine
DX: E87.6 Hypokalemia (principal)
CPT/HCPCS: 36415; 84132

== ENCOUNTER 2024-01-27 04:26 | Outpatient (RCR) | payer MEDICARE, OTHER, SELFPAY | END 2024-02-25 09:28 | disposition home or self-care (01) | LOC: MM 04:26 | PROVIDERS: PCP Internal Medicine; Visit Provider Internal Medicine | DX: Z51.81 Encounter for therapeutic drug level monitoring (principal); Z79.01 Long term (current) use of anticoagulants; I48.20 Chronic atrial fibrillation, unspecified ==

== ENCOUNTER 2024-02-27 00:55 | Outpatient (RCR) | payer MEDICARE, OTHER, SELFPAY | END 2024-03-27 15:15 | disposition home or self-care (01) | LOC: MM 00:55 | PROVIDERS: PCP Internal Medicine; Visit Provider Internal Medicine | DX: Z51.81 Encounter for therapeutic drug level monitoring (principal); Z79.01 Long term (current) use of anticoagulants; I48.20 Chronic atrial fibrillation, unspecified ==

== ENCOUNTER 2024-03-30 02:33 | Outpatient (RCR) | payer MEDICARE, OTHER, SELFPAY | END 2024-04-24 13:35 | disposition home or self-care (01) | LOC: MM 02:33 | PROVIDERS: PCP Internal Medicine; Visit Provider Internal Medicine | DX: Z51.81 Encounter for therapeutic drug level monitoring (principal); Z79.01 Long term (current) use of anticoagulants; I48.20 Chronic atrial fibrillation, unspecified ==

== ENCOUNTER 2024-04-26 07:44 | Outpatient (RCR) | payer MEDICARE, OTHER, SELFPAY | END 2024-05-22 13:19 | disposition home or self-care (01) | LOC: MM 07:44 | PROVIDERS: PCP Internal Medicine; Visit Provider Internal Medicine | DX: Z51.81 Encounter for therapeutic drug level monitoring (principal); Z79.01 Long term (current) use of anticoagulants; I48.91 Unspecified atrial fibrillation ==

== ENCOUNTER 2024-05-26 04:00 | Outpatient (RCR) | payer MEDICARE, OTHER, SELFPAY | END 2024-06-24 14:38 | disposition home or self-care (01) | LOC: MM 04:00 | PROVIDERS: PCP Internal Medicine; Visit Provider Internal Medicine | DX: Z51.81 Encounter for therapeutic drug level monitoring (principal); Z79.01 Long term (current) use of anticoagulants; I48.20 Chronic atrial fibrillation, unspecified ==

== ENCOUNTER 2024-06-25 04:39 | Outpatient (RCR) | payer MEDICARE, OTHER, SELFPAY | END 2024-07-25 07:15 | disposition home or self-care (01) | LOC: MM 04:39 | PROVIDERS: PCP Internal Medicine; Visit Provider Internal Medicine | DX: Z51.81 Encounter for therapeutic drug level monitoring (principal); Z79.01 Long term (current) use of anticoagulants; I48.20 Chronic atrial fibrillation, unspecified ==

== ENCOUNTER 2024-07-26 08:21 | Outpatient (RCR) | payer MEDICARE, OTHER, SELFPAY | END 2024-08-20 15:06 | disposition home or self-care (01) | LOC: MM 08:21 | PROVIDERS: PCP Internal Medicine; Visit Provider Internal Medicine | DX: Z51.81 Encounter for therapeutic drug level monitoring (principal); Z79.01 Long term (current) use of anticoagulants; I48.20 Chronic atrial fibrillation, unspecified ==